=== PATIENT | male | born 1935 | race Caucasian/White ===

== ENCOUNTER → 2016-06-22 | Outpatient (CLI) | payer MEDICARE ==
--- NOTE | 2016-06-22 13:18 | XR ---
EXAMINATION TYPE: XR lumbosacral spine min 4V DATE OF EXAM ORDERED: 06/22/2016 12:10 PM HISTORY: Low back pain. COMPARISON: Previous study dated 05/22/2014. FINDINGS: There is a bilateral lysis at L5 and there is a grade 2 spondylolisthesis of L5 on S1. The re is severe disc space loss at L5-S1. There is mild, diffuse hypertrophic spondylosis throughout the lumbar spine. There is mild facet arth ropathy. There is spondylosis deformans. The pedicles are intact. IMPRESSION: 1. NO ACUTE OSSEOUS LESION. 2. FAIRLY SEVERE DEGENERATIVE CHANGE. 3. STABLE, GRADE 2 SPONDYLOLISTHESIS OF L5 ON S1.
== END | disposition home or self-care (01) ==
LOC: RADXRMAIN 11:35
PROVIDERS: ATTEND Internal Medicine
DX: M43.17 Spondylolisthesis, lumbosacral region (principal); M47.817 Spondylosis without myelopathy or radiculopathy, lumbosacral region
CPT/HCPCS: 72110

== ENCOUNTER → 2016-10-14 | Outpatient (CLI) | payer MEDICARE ==
--- NOTE | 2016-10-14 12:23 | FL ---
EXAMINATION TYPE: FL barium swallow w video DATE OF EXAM ORDERED: 10/14/2016 HISTORY: R13.10 dysphagia. COMPARISON: None. TECHNIQUE: The patient was challenged with varying food substances ranging from thin liquids through solids. FINDINGS: There was moderate penetration with thin liquids and flash penetration with nectar thick l iquids. The patient tolerated other foodstuffs well. There is no kwadwo aspiration. There are moderate residuals. IMPRESSION: THIS PATIENT AT INCREASED RISK FOR ASPIRATION WITH BOTH THIN LIQUIDS AND NECTAR THICK LIQUIDS.
== END | disposition home or self-care (01) ==
LOC: RADFLMAIN 11:31
PROVIDERS: ATTEND Otolaryngology
DX: R13.10 Dysphagia, unspecified (principal)
CPT/HCPCS: 74230

== ENCOUNTER → 2016-12-21 | Outpatient (CLI) | payer MEDICARE ==
--- NOTE | 2016-12-21 08:52 | CT ---
EXAMINATION TYPE: CT brain wo con DATE OF EXAM: 12/21/2016 COMPARISON: 12/10/2014 HISTORY: Dysphagia CT DLP: 892.[address] of the brain was performed. The ventricles, basal cisterns and sulci overlying the cerebral convexities demonstrate moderate enla rgement. There is no evidence for intracranial hemorrhage or sulcal effacement. There is moderate confluent decreased attenuation about the periventricular white matter and deep whi te matter of both cerebral hemispheres, compatible with chronic small vessel ischemia. Differential d iagnosis does include demyelination. No mass effects are seen.No midline shift. Osseous calvarium is intact. Mild chronic paranasal sinusitis. If symptoms persist consider MRI. IMPRESSION: 1. Age related atrophic and chronic small vessel ischemic change without acute intracranial process s een at this time.
== END | disposition home or self-care (01) ==
LOC: RADCTMAIN 08:16
PROVIDERS: ATTEND Psychiatry & Neurology Neurology
DX: G31.1 Senile degeneration of brain, not elsewhere classified (principal); I67.82 Cerebral ischemia
CPT/HCPCS: 70450

== ENCOUNTER → 2017-02-22 | Outpatient (CLI) | payer MEDICARE ==
--- NOTE | 2017-02-22 16:00 | US ---
EXAMINATION TYPE: US kidneys/renal and bladder DATE OF EXAM: 02/22/2017 COMPARISON: 12/11/2014 CLINICAL HISTORY: N18.4 Chronic kidney disease stage 4. CKD EXAM MEASUREMENTS: Right Kidney: 9.5 x 4.4 x 3.9 cm Left Kidney: 9.3 x 5.2 x 4.3 cm Right Kidney: echogenic, multiple cystic areas noted with largest = 6.1 x 3.8 x 5.7cm . The largest on the prior exam measured up to 4.2 cm. Left Kidney: echogenic, multiple cystic areas noted with largest = 5.3 x 3.4 x 4.3cm . The largest o n the prior exam measured up to 4.4 cm. Bladder: wall = 0.4cm likely secondary to incomplete distention. Bilateral Jets seen: yes Bilateral cortical renal atrophy is noted as well as diminished cortical medullary differentiation bi laterally. No hydronephrosis is seen. IMPRESSION: Redemonstration of bilateral cortically based renal cysts, enlarged from the prior exam, and cortical renal atrophy. No evidence of hydronephrosis or nephrolithiasis.
== END ==
LOC: RADUSWWP 14:18
PROVIDERS: ATTEND Internal Medicine Nephrology
DX: N28.1 Cyst of kidney, acquired (principal)
CPT/HCPCS: 76770

== ENCOUNTER → 2017-11-23 | Outpatient (CLI) | payer MEDICARE ==
--- NOTE | 2017-11-23 12:28 | US ---
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 EXAM MEASUREMENTS: Right Kidney: 10.2 x 4.1 x 4.9 cm Left Kidney: 12.5 x 5.5 x 6.4 cm Right Kidney: multiple cysts, largest measures 6.7 x 4.8 x 4.1 cm. Left Kidney: multiple cysts, largest measures 3.9 x 3.2 x 3.4 cm. Bladder: wnl Bilateral Jets seen: yes There is no evidence for hydronephrosis at this point in time. Increased cortical echogenicity is pre sent bilaterally. No nephrolithiasis is seen. No masses are identified. The urinary bladder is ane choic. Bilateral ureteral jets are seen. IMPRESSION: Findings consistent with chronic medical renal disease as there is cortical thinning and increased cortical echogenicity present bilaterally with multiple simple appearing cysts redemonstrat ed bilaterally. No hydronephrosis is evident bilaterally. No significant change from prior.
== END | disposition home or self-care (01) ==
LOC: RADUSWWP 10:46
PROVIDERS: ATTEND Internal Medicine Nephrology
DX: N28.1 Cyst of kidney, acquired (principal); I12.0 Hypertensive chronic kidney disease with stage 5 chronic kidney disease or end stage renal disease; N18.5 Chronic kidney disease, stage 5
CPT/HCPCS: 76770

== ENCOUNTER 2017-12-27 13:07 | Inpatient (IN) | payer MEDICARE ==
[2017-12-27 14:45] LABS: Basophils % (A) 0 %; Eosinophils # (A) 0.3 k/uL (0-0.7); Eosinophils % (A) 4 %; HCT 39.9 % (39.0-53.0); HGB 11.7 gm/dL (13.0-17.5); Hypochromasia Marked; Lymphocytes % (A) 14 %; MCH 28.7 pg (25.0-35.0); MCHC 29.4 g/dL (31.0-37.0); MCV 97.7 fL (80.0-100.0); Mean Platelet Volume 7.4; Monocytes # (A) 0.6 k/uL (0-1.0); Monocytes % (A) 9 %; Neutrophils # (A) 4.9 k/uL (1.3-7.7); Neutrophils % (A) 71 %; Platelet Count 165 k/uL (150-450); RBC 4.08 m/uL (4.30-5.90); RDW 14.8 % (11.5-15.5)
[2017-12-27 14:52] LABS: Albumin 3.4 g/dL (3.5-5.0); Calcium 8.7 mg/dL (8.4-10.2); Potassium 4.4 mmol/L (3.5-5.1); Total Bilirubin 0.5 mg/dL (0.2-1.3); Total Protein 6.1 g/dL (6.3-8.2)
[2017-12-27 15:07] LABS: Creatine Kinase 50 U/L (55-170)
[2017-12-27 15:20] LABS: Troponin I <0.012 ng/mL (0.000-0.034)
[2017-12-27 15:26] LABS: Creatine Kinase MB 2.7 ng/mL (0.0-2.4)
[2017-12-27] MEDS ORDERED: IPRATROPIUM-ALBUTEROL 3 ML NEB INHALATION STA (15:53)
[2017-12-27] MEDS ORDERED: methylPREDNISolone SOD SUCCI 125 MG/2 ML VIAL IV STA (15:53)
--- NOTE | 2017-12-27 15:55 | ED ---
General Adult HPI - General Chief complaint: Shortness of Breath Stated complaint: SOB Time Seen by Provider: 12/27/17 15:26 Source: patient, family, RN notes reviewed Mode of arrival: wheelchair Limitations: no limitations - History of Present Illness Initial comments: Patient is a pleasant 82-year-old male presenting to the emergency department with difficulty breathing. Symptoms have progressively worsened over the past couple of weeks. Patient has started using his nebulizers again how reason unclear whether or not the help. Patient is somewhat a poor historian. Patient does admit to cough with occasional sputum, unknown of discolored. No fevers. Patient is in the process of starting dialysis. - Related Data Home Medications Medication Instructions Recorded Confirmed Brimonidine Tartrate [Alphagan P 1 drop BOTH EYES BID 12/10/14 12/27/17 0.1% Ophth Soln] Pravastatin Sodium [Pravachol] 20 mg PO HS 12/10/14 12/27/17 Timolol 0.5% Ophth Soln [Timoptic 1 drop BOTH EYES DAILY 12/11/14 12/27/17 0.5% Ophth Soln] Allopurinol [Zyloprim] 100 mg PO HS 12/27/17 12/27/17 Atenolol [Tenormin] 12.5 mg PO Q48H 12/27/17 12/27/17 Calcitriol 0.25 mcg PO Q14D 12/27/17 12/27/17 Cholecalciferol (Vitamin D3) 2,000 unit PO HS 12/27/17 12/27/17 [Vitamin D3] Ferrous Sulfate [Feosol] 325 mg PO HS 12/27/17 12/27/17 Multivitamins, Thera [Multivitamin 1 tab PO HS 12/27/17 12/27/17 (formulary)] Sodium Bicarbonate 10gr 10 gm PO HS 12/27/17 12/27/17 Tamsulosin [Flomax] 0.4 mg PO DAILY 12/27/17 12/27/17 Warfarin [Coumadin] 5 mg PO [id number] 12/27/17 12/27/17 Warfarin [Coumadin] 7.5 mg PO SUTH 12/27/17 12/27/17 rOPINIRole HCL [Requip] 4 mg PO HS 12/27/17 12/27/17 Allergies Allergy/AdvReac Type Severity Reaction Status Date / Time No Known Allergies Allergy Verified 12/27/17 16:20 Review of Systems ROS Statement: Those systems with pertinent positive or pertinent negative responses have been documented in the HPI. ROS Other: All systems not noted in ROS Statement are negative. Constitutional: Denies: fever Eyes: Denies: eye pain ENT: Denies: ear pain Respiratory: Reports: cough, dyspnea Cardiovascular: Denies: chest pain Endocrine: Denies: heat or cold intolerance Gastrointestinal: Denies: vomiting Genitourinary: Denies: dysuria Musculoskeletal: Denies: back pain Skin: Denies: rash Neurological: Denies: weakness Past Medical History Past Medical History: COPD, Hyperlipidemia, Hypertension, Renal Disease History of Any Multi-Drug Resistant Organisms: None Reported Past Surgical History: Hernia Repair Additional Past Surgical History / Comment(s): Mastoid surgery X3 Past Anesthesia/Blood Transfusion Reactions: No Reported Reaction Past Psychological History: No Psychological Hx Reported Smoking Status: Former smoker Past Alcohol Use History: Occasional Past Drug Use History: None Reported - Past Family History Father Family Medical History: Asthma Mother Family Medical History: Hypertension General Exam Limitations: no limitations General appearance: alert, in no apparent distress Head exam: Present: atraumatic Eye exam: Present: normal appearance, PERRL ENT exam: Present: normal oropharynx Neck exam: Present: normal inspection Respiratory exam: Present: wheezes, rales (Right base) Cardiovascular Exam: Present: irregular rhythm GI/Abdominal exam: Present: soft. Absent: tenderness Extremities exam: Present: normal inspection. Absent: pedal edema, calf tenderness Back exam: Present: normal inspection Neurological exam: Present: alert Psychiatric exam: Present: normal affect, normal mood Skin exam: Present: normal color Course Vital Signs 12/27/17 12/27/17 12/27/17 13:52 15:50 15:52 Temperature 97.8 F 98.3 F Pulse Rate 86 91 Respiratory 20 18 18 Rate Blood Pressure 109/74 116/62 O2 Sat by Pulse 98 98 Oximetry 12/27/17 12/27/17 16:08 16:18 Temperature Pulse Rate 85 90 Respiratory Rate Blood Pressure O2 Sat by Pulse Oximetry - Reevaluation(s) Reevaluation #1: 12/27/17 17:50 Patient does not meet sepsis criteria. Patient will be started on antibiotics for possible lung consolidation. EKG Findings - EKG Comments: EKG Findings:: A. fib with rate of 98. QRS 72. QT 336. QTc 428. Normal axis. Normal QRS. No acute ST change Medical Decision Making - Medical Decision Making Patient reevaluated and somewhat improved following nebulizer. Patient updated on results and plan. Case was discussed with Dr. More, who will admit for Dr. Ortiz. - Lab Data Result diagrams: 12/27/17 14:30 12/27/17 14:30 Lab Results 12/27/17 12/27/17 12/27/17 Range/Units 14:30 14:30 14:30 WBC 7.0 (3.8-10.6) k/uL RBC 4.08 L (4.30-5.90) m/uL Hgb 11.7 L (13.0-17.5) gm/dL Hct 39.9 (39.0-53.0) % MCV 97.7 (80.0-100.0) fL MCH 28.7 (25.0-35.0) pg MCHC 29.4 L (31.0-37.0) g/dL RDW 14.8 (11.5-15.5) % Plt Count 165 (150-450) k/uL Neutrophils % 71 % Lymphocytes % 14 % Monocytes % 9 % Eosinophils % 4 % Basophils % 0 % Neutrophils # 4.9 (1.3-7.7) k/uL Lymphocytes # 1.0 (1.0-4.8) k/uL Monocytes # 0.6 (0-1.0) k/uL Eosinophils # 0.3 (0-0.7) k/uL Basophils # 0.0 (0-0.2) k/uL Hypochromasia Marked Sodium 139 (137-145) mmol/L Potassium 4.4 (3.5-5.1) mmol/L Chloride 109 H (98-107) mmol/L Carbon Dioxide 20 L (22-30) mmol/L Anion Gap 10 mmol/L BUN 76 H (9-20) mg/dL Creatinine 3.90 H (0.66-1.25) mg/dL Est GFR (CKD-EPI)AfAm 15 (>60 ml/min/1.73 sqM) Est GFR (CKD-EPI)NonAf 13 (>60 ml/min/1.73 sqM) Glucose 103 H (74-99) mg/dL Plasma Lactic Acid Jack (0.7-2.0) mmol/L Calcium 8.7 (8.4-10.2) mg/dL Total Bilirubin 0.5 (0.2-1.3) mg/dL AST 20 (17-59) U/L ALT 33 (21-72) U/L Alkaline Phosphatase 141 H (38-126) U/L Total Creatine Kinase 50 L (55-170) U/L CK-MB (CK-2) 2.7 H* (0.0-2.4) ng/mL CK-MB (CK-2) Rel Index 5.4 Troponin I <0.012 (0.000-0.034) ng/mL NT-Pro-B Natriuret Pep pg/mL Total Protein 6.1 L (6.3-8.2) g/dL Albumin 3.4 L (3.5-5.0) g/dL 12/27/17 12/27/17 Range/Units 14:30 14:30 WBC (3.8-10.6) k/uL RBC (4.30-5.90) m/uL Hgb (13.0-17.5) gm/dL Hct (39.0-53.0) % MCV (80.0-100.0) fL MCH (25.0-35.0) pg MCHC (31.0-37.0) g/dL RDW (11.5-15.5) % Plt Count (150-450) k/uL Neutrophils % % Lymphocytes % % Monocytes % % Eosinophils % % Basophils % % Neutrophils # (1.3-7.7) k/uL Lymphocytes # (1.0-4.8) k/uL Monocytes # (0-1.0) k/uL Eosinophils # (0-0.7) k/uL Basophils # (0-0.2) k/uL Hypochromasia Sodium (137-145) mmol/L Potassium (3.5-5.1) mmol/L Chloride (98-107) mmol/L Carbon Dioxide (22-30) mmol/L Anion Gap mmol/L BUN (9-20) mg/dL Creatinine (0.66-1.25) mg/dL Est GFR (CKD-EPI)AfAm (>60 ml/min/1.73 sqM) Est GFR (CKD-EPI)NonAf (>60 ml/min/1.73 sqM) Glucose (74-99) mg/dL Plasma Lactic Acid Jack 0.6 L (0.7-2.0) mmol/L Calcium (8.4-10.2) mg/dL Total Bilirubin (0.2-1.3) mg/dL AST (17-59) U/L ALT (21-72) U/L Alkaline Phosphatase (38-126) U/L Total Creatine Kinase (55-170) U/L CK-MB (CK-2) (0.0-2.4) ng/mL CK-MB (CK-2) Rel Index Troponin I (0.000-0.034) ng/mL NT-Pro-B Natriuret Pep 07288 pg/mL Total Protein (6.3-8.2) g/dL Albumin (3.5-5.0) g/dL - Radiology Data Radiology results: image reviewed (Chest x-ray shows cardiomegaly.Pleural effusion and probable consolidation.) Disposition Clinical Impression: Dyspnea, Pleural effusion Disposition: ADMITTED IP TO THIS HOSP Is patient prescribed a controlled substance at d/c from ED?: No Referrals: Vaibhav Ortiz MD [Primary Care Provider] - 1-2 days Decision Time: 17:50
--- NOTE | 2017-12-27 17:38 | XR ---
EXAMINATION TYPE: XR chest 2V DATE OF EXAM: 12/27/2017 COMPARISON: 04/15/2017 HISTORY: Short of breath TECHNIQUE: Frontal and lateral views of the chest are obtained. FINDINGS: Heart is enlarged. There is opacification of left lower hemithorax. There is coarsening of the lung markings. There is no definite heart failure. There is slight blunting of right costophreni c angle. IMPRESSION: Cardiomegaly. There is new left pleural effusion and probable left lower lobe consolidat ion compared to old exam. Small right pleural effusion. No obvious heart failure.
[2017-12-27] MEDS ORDERED: PNEUMONIA PROTOCOL UTILIZED 1 EACH MISC PO PRN (17:50)
[2017-12-27] MEDS ORDERED: cefTRIAXone IN SWFI 1,000 MG/10 ML SYRINGE IVP STA (17:50)
[2017-12-27] MEDS ORDERED: IPRATROPIUM-ALBUTEROL 3 ML NEB INHALATION PRN (17:50)
[2017-12-27] MEDS ORDERED: AZITHROMYCIN 500 MG in SODIUM CHLORIDE 0.9% 250 ML IVPB STA (17:50)
[2017-12-27] MEDS: methylPREDNISolone SOD SUCCI 125 MG/2 ML VIAL IV SCH (20:44)
[2017-12-27] MEDS: IPRATROPIUM-ALBUTEROL 3 ML NEB INHALATION SCH (21:12)
[2017-12-27] MEDS ORDERED: ATENOLOL 12.5 MG TAB PO SCH (23:30)
[2017-12-28] MEDS: methylPREDNISolone SOD SUCCI 125 MG/2 ML VIAL IV SCH ×4 (00:28→17:36)
[2017-12-28] MEDS: ACETAMINOPHEN TAB 325 MG TAB PO PRN (00:56)
[2017-12-28 01:17] LABS: Appearance,Urine Clear (Clear); Color,Urine Yellow; Specific Gravity,Urine 1.008 (1.001-1.035)
[2017-12-28 01:18] LABS: Bilirubin,Urine Negative (Negative); Blood,Urine Negative (Negative); Glucose,Urine (UA) 2+ (Negative); Ketones,Urine Negative (Negative); Leukocyte Esterase,Urine Negative (Negative); Nitrite,Urine Negative (Negative); Protein,Urine Trace (Negative); Urobilinogen,Urine <2.0 mg/dL (<2.0)
--- NOTE | 2017-12-28 07:17 | XR ---
EXAMINATION TYPE: XR chest 2V DATE OF EXAM: 12/28/2017 COMPARISON: Prior chest x-ray 12/27/2017 HISTORY: Pneumonia TECHNIQUE: Frontal and lateral views of the chest are obtained. FINDINGS: No evident pneumothorax. Retrocardiac density obscures the left hemidiaphragm. There is pe rsistent blunting of the right costophrenic angle. Heart is thought to be enlarged. Pulmonary vascula rity and ben not significantly changed. Prominent lung volumes suggests underlying COPD. IMPRESSION: There is no significant interval change. Cardiomegaly. Left lower lobe atelectasis versu s pneumonia and associated effusion, follow-up to resolution. Consider chest CT as indicated for pers istent abnormal density.
[2017-12-28 07:18] LABS: Glucose,Whole Blood 137 mg/dL (75-99)
--- NOTE | 2017-12-28 07:41 | HP ---
HISTORY AND PHYSICAL CHIEF COMPLAINT: Shortness of breath. HISTORY OF PRESENT ILLNESS: This 82 -year-old gentleman with past medical history of COPD, diabetes, hypertension, hyperlipidemia, is being followed by Dr. Ortiz in the outpatient setting was admitted with shortness of breath. The patient had difficulty which progressively worsened after 2 weeks despite using nebulizer. A chest x-ray was done from the ER which showed cardiomegaly with new left pleural effusion and probable left lower consolidation also. There is no history of fever, rigors. No history of headache, loss of consciousness or seizures at this time. PAST MEDICAL HISTORY: History of COPD, hypertension, hyperlipidemia, history of renal disease. MEDICATIONS: Prior to admission include: 1. Requip 4 mg q.h.s. 2. Coumadin 5 mg Wednesday, Wednesday, Wednesday, Wednesday and 7.5 mg Wednesday and . 3. Timolol 1 drop both eyes b.i.d. daily. 4. Flomax 0.4 daily. 5. Sodium bicarb 10 mg q.h.s. 6. Pravachol 20 mg. 7. Multivitamins one p.o. daily. 8. Iron sulfate 320 mg daily. 9. Vitamin D3 2000 q.h.s. 10.Calcitriol 0.25 mcg q14 days. 11.Alphagan eye drops. 12.Tenormin 12.5 mg. 13.Zyloprim 100 mg daily. ALLERGIES: None. FAMILY HISTORY: History of asthma in the family. SOCIAL HISTORY: Previous history of smoker. No history of current smoking or alcohol intake. REVIEW OF SYSTEMS: ENT: No diminished vision. No diminished hearing cardio system: No angina or palpitations. Respiratory: No cough. GI: No nausea or vomiting. : No dysuria. NERVOUS SYSTEM: No numbness or weakness. ALLERGY/IMMUNOLOGY: No asthma or hayfever. MUSCULOSKELETAL: As mentioned earlier. HEMATOLOGY/ONCOLOGY: No history of anemia. ENDOCRINE no history of diabetes or hypothyroidism. CONSTITUTIONAL: As mentioned earlier. Dermatology: Negative. Rheumatology: Negative. Psychiatry: As mentioned earlier. PHYSICAL EXAMINATION: GENERAL: The patient is alert and oriented x2. Pulse is 88, blood pressure 111/60. Respiration 18. Temperature normal. Pulse ox 97 percent on 2 L. HEENT conjunctivae normal. Oral mucosa moist. Neck is no jugular venous distention. No carotid bruit. No lymph node enlargement. Cardiovascular system: S1, S2. No s3, no S4. Respiratory: Breath sounds diminished in the bases. Bilateral scattered rhonchi and increased breathing and increased efforts of breathing present and left lower lobe more crackles and bronchovesicular breathing also. ABDOMEN: Soft, nontender. No mass palpable. Legs no edema. No swelling. NERVOUS SYSTEM: Higher functions as mentioned earlier. Moves all four extremities. No focal motor or sensory deficits. Lymphatics: No lymph nodes palpable in the neck, axillae or groin. Skin: No ulcer, rashes or bleeding. LABS: WBC 7, hemoglobin 10.8, creatinine 3.97, [place] [address]. ASSESSMENT: 1. Chronic obstructive pulmonary disease acute exacerbation. 2. Possible left lower lobe pneumonia possibly gram-negative with left pleural effusion. 3. Renal failure with stage IV possibly. 4. History of hypertension. 5. Coumadin monitoring. 6. History of cardiomyopathy. 7. History of atrial fibrillation. RECOMMENDATION AND DISCUSSION: In this 82-year-old gentleman who presented with multiple complex medical issues, we will monitor the patient closely, continue the current medications, management and symptomatic treatment. We will initiate broad-spectrum IV antibiotics. Pulmonary consultation with Dr. Ortiz and Dr. Gloria. Otherwise, avoid nephrotoxic medications. Nephrology evaluation. Guarded prognosis because of multiple complex medical issues. Further recommendations to follow. A copy of dictation will be forwarded to Dr. Ortiz who is the primary physician. Bronchodilators. See orders for details. MMODL / IJN: [id number] /
[2017-12-28 07:45] LABS: Basophils % (A) 0 %; Eosinophils % (A) 0 %; HCT 37.1 % (39.0-53.0); Hypochromasia Marked; Lymphocytes # (A) 0.5 k/uL (1.0-4.8); Lymphocytes % (A) 10 %; MCH 29.1 pg (25.0-35.0); MCHC 29.6 g/dL (31.0-37.0); MCV 98.4 fL (80.0-100.0); Mean Platelet Volume 7.2; Monocytes # (A) 0.1 k/uL (0-1.0); Monocytes % (A) 2 %; Neutrophils # (A) 4.6 k/uL (1.3-7.7); Neutrophils % (A) 88 %; Platelet Count 151 k/uL (150-450); RBC 3.77 m/uL (4.30-5.90); RDW 14.9 % (11.5-15.5); WBC 5.2 k/uL (3.8-10.6)
[2017-12-28] MEDS: INSULIN ASPART 100 UNIT/ML 1 ML 10 ML VIAL SQ SCH ×4 (07:50→21:45)
[2017-12-28] MEDS: TIMOLOL 0.5% OPHTH DROPS 5 ML BTL BOTH EYES SCH (07:50)
[2017-12-28] MEDS: cefTRIAXone IN SWFI 1,000 MG/10 ML SYRINGE IVP SCH (07:50)
[2017-12-28] MEDS: AZITHROMYCIN 500 MG TAB PO SCH (07:51)
[2017-12-28] MEDS: TAMSULOSIN 0.4 MG CAP.ER.24H PO SCH (07:51)
[2017-12-28] MEDS: BRIMONIDINE TARTRATE 0.2% DROPS 5 ML BTL BOTH EYES SCH ×2 (07:51→21:42)
[2017-12-28 07:55] LABS: INR 4.8 (<1.2); Prothrombin Time 43.7 sec (9.0-12.0)
[2017-12-28] MEDS: IPRATROPIUM-ALBUTEROL 3 ML NEB INHALATION SCH ×4 (07:56→19:42)
[2017-12-28 08:22] LABS: Calcium 8.6 mg/dL (8.4-10.2); Potassium 4.2 mmol/L (3.5-5.1)
[2017-12-28] MEDS ORDERED: LIDOCAINE 1% INJ 10MG/ML (20 ML MDV) SQ STA (11:31)
[2017-12-28 12:17] LABS: Glucose,Whole Blood 151 mg/dL (75-99)
--- NOTE | 2017-12-28 12:44 | P.CNPUL ---
History of Present Illness Consult date: 12/28/17 Reason for consult: pleural effusion History of present illness: 82-year-old male patient with known history of chronic renal failure, currently on no dialysis, was coming into the hospital because of worsening shortness of breath over the past few weeks. The patient was found to have a large left- sided pleural effusion. Pulmonary consultation was requested. The patient claims that he had a pleural effusion approximately 3 years ago and this procedure was done by Dr. Favio Sage, however this was on the right side and a total of 1.8 L of pleural fluid was aspirated without any complications. The pleural fluid cytology was negative for malignancy. The patient is presenting with a large left-sided pleural effusion during this current admission. No significant fever or chills. No cough no sputum production no pleurisy. A bedside thoracentesis was done a total of 2.4 L of hemorrhagic bloody pleural effusion was aspirated from the left lung without any complication. A CAT scan of the chest is to follow. No constitutional symptoms. No pleurisy. No chest pain. The patient is known to have COPD and addition to chronic renal failure. Other medical problems include hypertension and hyperlipidemia and BPH. Review of Systems Constitutional: Reports fatigue, Reports lethargy Eyes: denies blurred vision, denies bulging eye, denies decreased vision Ears: deny: decreased hearing, ear discharge, earache, tinnitus Ears, nose, mouth and throat: Denies headache, Denies sore throat Cardiovascular: Reports decreased exercise tolerance, Reports dyspnea on exertion Respiratory: Reports dyspnea Gastrointestinal: Denies abdominal pain, Denies diarrhea, Denies nausea, Denies vomiting Genitourinary: Reports as per HPI Musculoskeletal: Denies myalgias Musculoskeletal: absent: ankle pain, ankle stiffness, ankle swelling Integumentary: Denies pruritus, Denies rash Neurological: Denies numbness, Denies weakness Psychiatric: Denies anxiety, Denies depression Endocrine: Reports as per HPI Hematologic/Lymphatic: Reports as per HPI Allergic/Immunologic: Reports as per HPI Past Medical History Past Medical History: Atrial Fibrillation, COPD, Hyperlipidemia, Hypertension, Renal Disease Additional Past Medical History / Comment(s): . History of Any Multi-Drug Resistant Organisms: None Reported Past Surgical History: Hernia Repair Additional Past Surgical History / Comment(s): Mastoid surgery X3 Past Anesthesia/Blood Transfusion Reactions: No Reported Reaction Past Psychological History: No Psychological Hx Reported Smoking Status: Former smoker Past Alcohol Use History: Occasional Past Drug Use History: None Reported - Past Family History Father Family Medical History: Asthma Mother Family Medical History: Hypertension Medications and Allergies Home Medications Medication Instructions Recorded Confirmed Type Brimonidine Tartrate [Alphagan P 1 drop BOTH EYES BID 12/10/14 12/27/17 History 0.1% Ophth Soln] Pravastatin Sodium [Pravachol] 20 mg PO HS 12/10/14 12/27/17 History Timolol 0.5% Ophth Soln [Timoptic 1 drop BOTH EYES DAILY 12/11/14 12/27/17 History 0.5% Ophth Soln] Allopurinol [Zyloprim] 100 mg PO HS 12/27/17 12/27/17 History Atenolol [Tenormin] 12.5 mg PO Q48H 12/27/17 12/27/17 History Calcitriol 0.25 mcg PO Q14D 12/27/17 12/27/17 History Cholecalciferol (Vitamin D3) 2,000 unit PO HS 12/27/17 12/27/17 History [Vitamin D3] Ferrous Sulfate [Feosol] 325 mg PO HS 12/27/17 12/27/17 History Multivitamins, Thera [Multivitamin 1 tab PO HS 12/27/17 12/27/17 History (formulary)] Sodium Bicarbonate 10gr 10 gm PO HS 12/27/17 12/27/17 History Tamsulosin [Flomax] 0.4 mg PO DAILY 12/27/17 12/27/17 History Warfarin [Coumadin] 5 mg PO MOTUWEFRSA 12/27/17 12/27/17 History Warfarin [Coumadin] 7.5 mg PO SUTH 12/27/17 12/27/17 History rOPINIRole HCL [Requip] 4 mg PO HS 12/27/17 12/27/17 History Allergies Allergy/AdvReac Type Severity Reaction Status Date / Time No Known Allergies Allergy Verified 12/27/17 16:20 Physical Exam Vitals: Vital Signs Temp Pulse Pulse Resp BP BP Pulse Ox 12/28/17 11:45 84 12/28/17 11:24 84 12/28/17 08:07 80 12/28/17 07:56 80 12/28/17 07:00 98.1 F 86 20 109/65 92 L 12/27/17 23:00 98.0 F 84 24 115/59 93 L 12/27/17 21:26 88 12/27/17 21:12 88 12/27/17 19:51 88 18 111/63 97 12/27/17 18:23 91 18 111/57 94 L 12/27/17 16:18 90 12/27/17 16:08 85 12/27/17 15:52 18 12/27/17 15:50 98.3 F 91 18 116/62 98 12/27/17 13:52 97.8 F 86 20 109/74 98 Intake and Output 12/27/17 12/28/17 12/28/17 22:59 06:59 14:59 Intake Total 20 Output Total 100 Balance -80 Intake: IV 20 saline flush 20 Output: Urine 100 Other: Voiding Method Toilet Toilet # Voids 1 1 Weight 79 kg Gen. appearance the patient is calm comfortable likely distress Head exam was generally normal. There was no scleral icterus or corneal arcus. Mucous membranes were moist. Neck was supple and without jugular venous distension, thyromegaly, or carotid bruits. Carotids were easily palpable bilaterally. There was no adenopathy. Lungs sounds are diminished in the left lung base along with dullness to percussion Cardiac exam revealed the PMI to be normally situated and sized. The rhythm was regular and no extrasystoles were noted during several minutes of auscultation. The first and second heart sounds were normal and physiologic splitting of the second heart sound was noted. There were no murmurs, rubs, clicks, or gallops. Abdominal exam revealed normal bowel sounds. The abdomen was soft, non-tender, and without masses, organomegaly, or appreciable enlargement of the abdominal aorta. Extremities the patient has a functional AV fistula in the right upper extremity.Examination of the extremities revealed easily palpable radial, femoral and pedal pulses. There was no cyanosis, clubbing or edema. Neurologically awake and alert there is no deficit Examination of the skin revealed no evidence of significant rashes, suspicious appearing nevi or other concerning lesions. Results - Laboratory Findings CBC and BMP: 12/28/17 07:09 12/28/17 07:09 PT/INR, D-dimer PT 43.7 sec (9.0-12.0) H 12/28/17 07:09 INR 4.8 (<1.2) H 12/28/17 07:09 Abnormal lab findings: Abnormal Labs 12/27/17 12/27/17 12/27/17 14:30 14:30 14:30 RBC 4.08 L Hgb 11.7 L Hct MCHC 29.4 L Lymphocytes # PT INR Chloride 109 H Carbon Dioxide 20 L BUN 76 H Creatinine 3.90 H Glucose 103 H POC Glucose (mg/dL) Plasma Lactic Acid Jack Alkaline Phosphatase 141 H Total Creatine Kinase 50 L CK-MB (CK-2) 2.7 H* Total Protein 6.1 L Albumin 3.4 L Urine Protein Urine Glucose (UA) 12/27/17 12/28/17 12/28/17 14:30 07:06 07:09 RBC 3.77 L Hgb 11.0 L Hct 37.1 L MCHC 29.6 L Lymphocytes # 0.5 L PT INR Chloride Carbon Dioxide BUN Creatinine Glucose POC Glucose (mg/dL) 137 H Plasma Lactic Acid Jack 0.6 L Alkaline Phosphatase Total Creatine Kinase CK-MB (CK-2) Total Protein Albumin Urine Protein Urine Glucose (UA) 12/28/17 12/28/17 12/28/17 07:09 07:09 11:31 RBC Hgb Hct MCHC Lymphocytes # PT 43.7 H INR 4.8 H Chloride 110 H Carbon Dioxide 18 L BUN 73 H Creatinine 3.85 H Glucose 144 H POC Glucose (mg/dL) 151 H Plasma Lactic Acid Jack Alkaline Phosphatase Total Creatine Kinase CK-MB (CK-2) Total Protein Albumin Urine Protein Urine Glucose (UA) 12/28/17 Unknown RBC Hgb Hct MCHC Lymphocytes # PT INR Chloride Carbon Dioxide BUN Creatinine Glucose POC Glucose (mg/dL) Plasma Lactic Acid Jack Alkaline Phosphatase Total Creatine Kinase CK-MB (CK-2) Total Protein Albumin Urine Protein Trace H Urine Glucose (UA) 2+ H - Diagnostic Findings Chest x-ray: image reviewed Assessment and Plan Plan: Assessment 1 large left-sided pleural effusion postthoracentesis and evacuation of 2.4 L of bloody effusion without any complications. CAT scan of the chest is to follow. Chemical analysis of the pleural fluid is to follow. Fluid cytology is to follow. Rule out malignancy. Rule out parapneumonic effusion. 2 shortness of breath secondary to above, anticipate improvement postthoracentesis 3 chronic renal failure not on hemodialysis. 4 hypertension 5 hyperlipidemia 6 chronic anemia 7 previous history of a right-sided pleural effusion evacuated through a thoracentesis back in 2014 Plan Sent the pleural fluid for analysis. Obtain a computed tomography scan of the chest without contrast. Resume outpatient medications. We'll continue to follow.
--- NOTE | 2017-12-28 13:01 | P.NPCON ---
History of Present Illness - Reason for Consult chronic renal failure - History of Present Illness Reason for consultation: Chronic kidney disease History of present illness: Patient is a 82-year-old male seen in renal consultation for chronic kidney disease. Patient has chronic kidney disease stage V with baseline creatinine near 3.8-3.9. 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 Patient has been prepared for hemodialysis as an outpatient and has a left upper extremity AV fistula in place. He is also interested in doing peritoneal dialysis down the road. Patient presented to the hospital due to dyspnea. Patient states he's been dyspneic the last one month and has been gradually getting worse. He also had a productive cough with yellow sputum. Chest x-ray was suggestive of a left lower lobe pneumonia but he was also noted to have pleural effusions. He's scheduled to undergo CAT scan of the chest today. No vomiting or diarrhea. Oral intake is fair. Admits to good urine output. Denies hematuria or dysuria. Denies use of nonsteroidals. No fever or chills. Creatinine stable at 3.85 today. Hemodynamically stable. Patient states Lasix was discontinued about a week ago as his blood pressure was low. No edema. Vital signs are stable. General: The patient appeared well nourished and normally developed. HEENT: Head exam is unremarkable. Neck is without jugular venous distension. LUNGS: Lungs are clear to auscultation and percussion. Breath sounds decreased. HEART: Rate and Rhythm are regular. First and second heart sounds normal. No murmurs, rubs or gallops. ABDOMEN: Abdominal exam reveals normal bowel sounds. Non-tender and non- distended. No evidence of peritonitis. EXTREMITITES: No clubbing, cyanosis, or edema. Past Medical History Past Medical History: Atrial Fibrillation, COPD, Hyperlipidemia, Hypertension, Renal Disease Additional Past Medical History / Comment(s): . History of Any Multi-Drug Resistant Organisms: None Reported Past Surgical History: Hernia Repair Additional Past Surgical History / Comment(s): Mastoid surgery X3 Past Anesthesia/Blood Transfusion Reactions: No Reported Reaction Past Psychological History: No Psychological Hx Reported Smoking Status: Former smoker Past Alcohol Use History: Occasional Past Drug Use History: None Reported - Past Family History Father Family Medical History: Asthma Mother Family Medical History: Hypertension Medications and Allergies Home Medications Medication Instructions Recorded Confirmed Type Brimonidine Tartrate [Alphagan P 1 drop BOTH EYES BID 12/10/14 12/27/17 History 0.1% Ophth Soln] Pravastatin Sodium [Pravachol] 20 mg PO HS 12/10/14 12/27/17 History Timolol 0.5% Ophth Soln [Timoptic 1 drop BOTH EYES DAILY 12/11/14 12/27/17 History 0.5% Ophth Soln] Allopurinol [Zyloprim] 100 mg PO HS 12/27/17 12/27/17 History Atenolol [Tenormin] 12.5 mg PO Q48H 12/27/17 12/27/17 History Calcitriol 0.25 mcg PO Q14D 12/27/17 12/27/17 History Cholecalciferol (Vitamin D3) 2,000 unit PO HS 12/27/17 12/27/17 History [Vitamin D3] Ferrous Sulfate [Feosol] 325 mg PO HS 12/27/17 12/27/17 History Multivitamins, Thera [Multivitamin 1 tab PO HS 12/27/17 12/27/17 History (formulary)] Sodium Bicarbonate 10gr 10 gm PO HS 12/27/17 12/27/17 History Tamsulosin [Flomax] 0.4 mg PO DAILY 12/27/17 12/27/17 History Warfarin [Coumadin] 5 mg PO MOTUWEFRSA 12/27/17 12/27/17 History Warfarin [Coumadin] 7.5 mg PO SUTH 12/27/17 12/27/17 History rOPINIRole HCL [Requip] 4 mg PO HS 12/27/17 12/27/17 History Allergies Allergy/AdvReac Type Severity Reaction Status Date / Time No Known Allergies Allergy Verified 12/27/17 16:20 Physical Exam Vitals: Vital Signs Temp Pulse Pulse Resp BP BP Pulse Ox 12/28/17 11:45 84 12/28/17 11:24 84 12/28/17 08:07 80 12/28/17 07:56 80 12/28/17 07:00 98.1 F 86 20 109/65 92 L 12/27/17 23:00 98.0 F 84 24 115/59 93 L 12/27/17 21:26 88 12/27/17 21:12 88 12/27/17 19:51 88 18 111/63 97 12/27/17 18:23 91 18 111/57 94 L 12/27/17 16:18 90 12/27/17 16:08 85 12/27/17 15:52 18 12/27/17 15:50 98.3 F 91 18 116/62 98 12/27/17 13:52 97.8 F 86 20 109/74 98 Intake and Output 12/27/17 12/28/17 12/28/17 22:59 06:59 14:59 Intake Total 20 Output Total 100 Balance -80 Intake: IV 20 saline flush 20 Output: Urine 100 Other: Voiding Method Toilet Toilet # Voids 1 1 Weight 79 kg Results - Lab Results Most recent lab results Calcium 8.6 mg/dL (8.4-10.2) 12/28/17 07:09 12/28/17 07:09 12/28/17 07:09 Assessment and Plan Plan: Assessment: 1. 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 Baseline creatinine near 3.8-3.9. Currently at baseline. 2. Metabolic acidosis secondary to chronic kidney disease. Patient states he ran out of sodium bicarbonate a few days ago. 3. Dyspnea secondary to left lower lobe pneumonia. 4. BPH maintained on Flomax. 5. Chronic kidney disease mineral bone disease maintained on calcitriol. 6. Anemia of chronic kidney disease. Hemoglobin at goal. Plan: Follow-up CT of the chest. Add oral sodium bicarbonate 650 mg twice daily. Encouraged oral intake. Continue to monitor renal function and urine output. Patient has a left upper extremity AV fistula in place. No urgent need for renal placement therapy at this time. Thank you for the consultation. I will continue to follow the patient with you during his hospital stay.
[2017-12-28] MEDS: SODIUM BICARBONATE TAB 650 MG TAB PO SCH ×2 (13:08→21:41)
--- NOTE | 2017-12-28 13:20 | CT ---
EXAMINATION TYPE: CT chest wo con DATE OF EXAM: 12/28/2017 COMPARISON: Chest x-ray earlier today HISTORY: Cough after thoracentesis CT DLP: 536 mGycm. Automated Exposure Control for Dose Reduction was Utilized. TECHNIQUE: CT scan of the thorax is performed without IV contrast. FINDINGS: LUNGS: There is residual small left pleural effusion after left-sided thoracentesis. There is associa adelaide compressive atelectasis. There is patchy right basilar linear scarring and/or atelectasis near di aphragm. Some mild groundglass opacity or suspected alveolar edema in the left lower lobe is present. There is additional linear scarring or atelectasis centrally left mid lung axial image 30. There is mild anterior reticulation and bleb formation right upper lobe near axial image 14 with focal scarrin g centrally axial image 14. There is mild central bronchiectasis involving lower lobe bronchi. There is anterior lateral right mid to lower lung linear scarring or atelectasis coronal image 33. No suspi cious consolidation or parenchymal nodule/masses are identified. No pneumothorax is seen bilaterally MEDIASTINUM: Lack of IV contrast is noted to limit evaluation for mediastinal and especially hilar ad enopathy. There are no definitive greater than 1 cm hilar or mediastinal lymph nodes. There is cardio megaly with moderate biatrial dilatation. There is moderate coronary artery calcification LAD in righ t circumflex. There is mild to moderate calcified plaque of aorta extending into branch vessels. Main pulmonary artery is dilated at 3.2 cm on axial image 28, CT findings consistent with underlying pulm onary artery hypertension. Adjacent ascending aorta measures up to 3.8 cm in diameter. OTHER: Severe multilevel spurring in the spine is present. Slight S-shaped scoliosis is seen. There a re several scattered low dense lesions probable simple cysts throughout both kidneys, few have higher density than simple cyst raising concern for proteinaceous cysts, solid lesion not excluded, for ref erence 1.9 cm exophytic lesion axial image 59 lateral aspect upper pole is noted with Hounsfield unit s averaging 21. IMPRESSION: 1. Small residual left pleural effusion after thoracentesis. Small area of groundglass opacity in the left lung could reflect small focus of reexpansion alveolar edema. There is background mild to moder ate scattered chronic parenchymal change bilaterally as detailed above most likely some atelectatic c omponent in the bilateral bases. No sizable pneumothorax. 2. Background cardiomegaly and suspected underlying pulmonary artery hypertension.
[2017-12-28 14:33] LABS: Hemoglobin A1C 5.9 % (4.0-6.0)
[2017-12-28 16:30] LABS: Hepatitis A Antibody IgM Non-Reactive (Non-Reactive); Hepatitis B Core IgM Non-Reactive (Non-Reactive)
[2017-12-28 17:20] LABS: Glucose,Whole Blood 157 mg/dL (75-99)
[2017-12-28] MEDS ORDERED: WARFARIN 5 MG TAB PO SCH (18:00)
--- NOTE | 2017-12-28 18:38 | PN ---
PROGRESS NOTE DATE OF SERVICE: 12/28/2017. This 82-year-old gentleman admitted with COPD acute exacerbation, possible pneumonia, pleural effusion on the left side. The patient has renal failure also which is chronic renal failure, possibly stage IV. Multiple consultants are following closely, Dr. Gloria and Dr. Thompson. Dr. Gloria recommended CT scan of the chest which showed residual left pleural effusion after the thoracocentesis and small area of ground-glass opacity was also noted. Otherwise, cardiomegaly and pulmonary artery hypertension was also suspected. No chest pain. No palpitations. PAST MEDICAL HISTORY: Reviewed. REVIEW OF SYSTEMS: CARDIOVASCULAR: No angina. RESPIRATORY: As mentioned earlier. HEENT: Diminished hearing, diminished vision. GI: As mentioned. : As mentioned earlier. NERVOUS SYSTEM: No numbness or weakness. CURRENT MEDICATIONS: 1. Tylenol 650 q.6h p.r.n. 2. DuoNeb q.i.d. and p.r.n. 3. Zyloprim. 4. Tenormin 12.5 daily. 5. Zithromax 5 mg. 6. Alphagan. 7. Rocaltrol 0.25 mg. 9. Iron sulfate. 10.NovoLog. 11.Solu-Medrol 60 IV. 12.Multivitamin. 13.Prozac. 14.Requip. 15.Flomax. 16.Timoptic. PHYSICAL EXAM: Patient is alert, oriented x3. Pulse is 90, blood pressure 102/60, respiration 18, temperature 97.4, pulse ox 98% on room air. HEENT: Conjunctivae normal. Oral mucosa moist. NECK: No jugular venous distention. No carotid bruit. No lymph node enlargement. CARDIOVASCULAR: S1, S2. RESPIRATORY: Breath sounds diminished in the bases. A few scattered rhonchi and crackles, especially on the left side. ABDOMEN: Soft, nontender. No mass palpable. LEGS: No edema. NERVOUS SYSTEM: No focal deficits. LABS: WBC 5.7, hemoglobin 11, creatinine 3.85. UA noted. ASSESSMENT: 1. Chronic obstructive pulmonary disease acute exacerbation. 2. Left lower pneumonia as well as left pleural effusion possibly gram-negative, status post thoracocentesis 2.4 L of fluid. 3. Renal failure, chronic with stage IV possibly. 4. History of hypertension. 5. Coumadin monitoring. 6. History of cardiomyopathy. 7. History of atrial fibrillation. 8. Coumadin coagulopathy. RECOMMENDATION AND DISCUSSION: I recommend to continue current medications, continue with monitoring and symptomatic treatment. Otherwise at this time I would recommend to continue to monitor. Otherwise, we will hold the Coumadin at this time. Monitor PT/INR closely. Continue the steroids, monitor closely. CT scan noted. Prognosis guarded because of multiple complex medical issues. Further recommendations to follow. MMODL / IJN: [id number] / JASON
[2017-12-28 19:51] LABS: Appearance,BF Bloody; Color,BF Red; Nucleated Cells, Body Fluid 2750 /uL
[2017-12-28 19:52] LABS: RBC, Body Fluid 35125 /uL
[2017-12-28 20:05] LABS: Mononuclear WBC,Body Fluid 37 %; Polynuclear WBC,Body Fluid 8 %; Total Cells Counted,Body Fluid 76
--- NOTE | 2017-12-28 20:08 | OP ---
OPERATIVE REPORT INDICATION: Pleural effusion, left side. PREOPERATIVE DIAGNOSIS: Left-sided pleural effusion. POSTOPERATIVE DIAGNOSIS: Left-sided pleural effusion. A time-out was completed verifying correct patient, procedure, site, positioning , and implant (s) or special equipment if applicable. Ultrasound guidance was not used and appropriate fluid pocket was identified and marked. Patient was positioned, prepped and draped in usual sterile fashion. Lidocaine was used to anesthetize the area. A Thoracentesis catheter was introduced into the pleural space and fluid was removed. Blood loss was none. A chest x-ray was ordered to evaluate for pneumothorax. Total Fluid Removed: 2.4 L. Color of Fluid: Bloody. Patient tolerated the procedure well and there were no bedside complications or bleeding. CT scan of the chest is to follow. MMODL / IJN: [id number] /
[2017-12-28] MEDS ORDERED: ALPRAZolam 0.25 MG TAB PO PRN (20:35)
[2017-12-28] MEDS ORDERED: SODIUM BICARBONATE TAB 650 MG TAB PO SCH (21:00)
[2017-12-28] MEDS: CHOLECALCIFEROL 1,000 UNIT TAB PO SCH (21:41)
[2017-12-28] MEDS: rOPINIRole HCL 4 MG TABLET PO SCH (21:41)
[2017-12-28 21:42] LABS: Glucose,Whole Blood 154 mg/dL (75-99)
[2017-12-28] MEDS: PRAVASTATIN SODIUM 20 MG TAB PO SCH (21:42)
[2017-12-28] MEDS: FERROUS SULFATE 325 MG TAB PO SCH (21:42)
[2017-12-28] MEDS: MULTIVITAMINS, THERA 1 EACH TAB PO SCH (21:42)
[2017-12-28] MEDS: ALLOPURINOL 100 MG TAB PO SCH (21:42)
[2017-12-28] MEDS: TEMAZEPAM 15 MG CAP PO PRN (23:00)
[2017-12-28] MEDS: methylPREDNISolone SOD SUCCI 40 MG/ML 1 ML VIAL IV SCH (23:01)
[2017-12-29 01:13] LABS: Total Protein, Body Fluid 2890 mg/dL
[2017-12-29 06:48] LABS: Glucose,Whole Blood 148 mg/dL (75-99)
[2017-12-29] MEDS: IPRATROPIUM-ALBUTEROL 3 ML NEB INHALATION SCH ×4 (07:30→20:52)
[2017-12-29] MEDS: methylPREDNISolone SOD SUCCI 40 MG/ML 1 ML VIAL IV SCH ×3 (07:39→23:19)
[2017-12-29] MEDS: TIMOLOL 0.5% OPHTH DROPS 5 ML BTL BOTH EYES SCH (07:39)
[2017-12-29] MEDS: AZITHROMYCIN 500 MG TAB PO SCH (07:39)
[2017-12-29] MEDS: cefTRIAXone IN SWFI 1,000 MG/10 ML SYRINGE IVP SCH (07:39)
[2017-12-29] MEDS: SODIUM BICARBONATE TAB 650 MG TAB PO SCH ×2 (07:40→20:47)
[2017-12-29] MEDS: INSULIN ASPART 100 UNIT/ML 1 ML 10 ML VIAL SQ SCH ×4 (07:40→21:00)
[2017-12-29] MEDS: TAMSULOSIN 0.4 MG CAP.ER.24H PO SCH (07:40)
[2017-12-29] MEDS: BRIMONIDINE TARTRATE 0.2% DROPS 5 ML BTL BOTH EYES SCH ×2 (08:23→20:46)
[2017-12-29 08:27] LABS: Basophils % (A) 0 %; Eosinophils % (A) 0 %; HGB 10.6 gm/dL (13.0-17.5); Hypochromasia Moderate; INR 4.7 (<1.2); Lymphocytes # (A) 0.5 k/uL (1.0-4.8); Lymphocytes % (A) 4 %; MCH 29.5 pg (25.0-35.0); MCHC 30.4 g/dL (31.0-37.0); Mean Platelet Volume 7.7; Monocytes # (A) 0.4 k/uL (0-1.0); Monocytes % (A) 3 %; Neutrophils # (A) 9.8 k/uL (1.3-7.7); Neutrophils % (A) 92 %; Platelet Count 147 k/uL (150-450); Prothrombin Time 42.7 sec (9.0-12.0); RDW 14.7 % (11.5-15.5); WBC 10.7 k/uL (3.8-10.6)
[2017-12-29 08:56] LABS: Calcium 8.3 mg/dL (8.4-10.2); Phosphorus 5.1 mg/dL (2.5-4.5); Potassium 4.5 mmol/L (3.5-5.1)
--- NOTE | 2017-12-29 13:54 | P.PN ---
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 He was admitted with pneumonia and is doing very well is on room air has any shortness of breath or cough fever chills. Good appetite. To walk without any dizziness. Scan did go up somewhat.blood pressure is somewhat low in the 111/63 range. Afebrile, heart rate in the 80s. 24-hour intake and output are not well documented Objective - Vital Signs Vital signs: Vital Signs Temp 97.8 F 12/29/17 06:21 Pulse 88 12/29/17 11:34 Resp 18 12/29/17 06:21 BP 103/58 12/29/17 06:21 Pulse Ox 94 L 12/29/17 06:21 Intake & Output 12/28/17 12/29/17 12/29/17 18:59 06:59 18:59 Intake Total 10 Balance 10 Intake: IV 10 saline flush 10 Other: Voiding Method Toilet Toilet Toilet Urinal # Voids 1 1 On examination is awake alert oriented comfortable HEENT exam no JVP neck is supple no facial asymmetry Lungs are significant for bilateral coarse crackle not clear but cough Heart sounds are unremarkable for any murmur rub gallop Abdomen soft nontender no ascites masses Extremity exam was no edema Neurologically awake alert oriented no asterixis. - Labs CBC & Chem 7: 12/29/17 07:19 12/29/17 07:19 Labs: Abnormal Lab Results - Last 24 Hours (Table) 12/28/17 12/28/17 12/29/17 Range/Units 17:17 21:40 06:43 WBC (3.8-10.6) k/uL RBC (4.30-5.90) m/uL Hgb (13.0-17.5) gm/dL Hct (39.0-53.0) % MCHC (31.0-37.0) g/dL Plt Count (150-450) k/uL Neutrophils # (1.3-7.7) k/uL Lymphocytes # (1.0-4.8) k/uL PT (9.0-12.0) sec INR (<1.2) Chloride (98-107) mmol/L Carbon Dioxide (22-30) mmol/L BUN (9-20) mg/dL Creatinine (0.66-1.25) mg/dL Glucose (74-99) mg/dL POC Glucose (mg/dL) 157 H 154 H 148 H (75-99) mg/dL Calcium (8.4-10.2) mg/dL Phosphorus (2.5-4.5) mg/dL 12/29/17 12/29/17 12/29/17 Range/Units 07:19 07:19 07:19 WBC 10.7 H (3.8-10.6) k/uL RBC 3.60 L (4.30-5.90) m/uL Hgb 10.6 L (13.0-17.5) gm/dL Hct 35.0 L (39.0-53.0) % MCHC 30.4 L (31.0-37.0) g/dL Plt Count 147 L (150-450) k/uL Neutrophils # 9.8 H (1.3-7.7) k/uL Lymphocytes # 0.5 L (1.0-4.8) k/uL PT 42.7 H (9.0-12.0) sec INR 4.7 H (<1.2) Chloride 110 H (98-107) mmol/L Carbon Dioxide 18 L (22-30) mmol/L BUN 89 H* (9-20) mg/dL Creatinine 4.50 H (0.66-1.25) mg/dL Glucose 139 H (74-99) mg/dL POC Glucose (mg/dL) (75-99) mg/dL Calcium 8.3 L (8.4-10.2) mg/dL Phosphorus 5.1 H (2.5-4.5) mg/dL Microbiology - Last 24 Hours (Table) 12/28/17 09:45 Gram Stain - Preliminary Sputum 12/27/17 14:30 Blood Culture - Preliminary Blood No Growth after 24 hours Assessment and Plan Assessment: Impression 1. Acute kidney injury from pneumonia. Possibly low blood pressure is adding an element to it. 2. Chronic kidney disease stage V FSGS. 3. Admitted with pneumonia. Computed tomography scan of the chest showed small residual left pleural effusion after thoracentesis left lung infiltrate cardiomegaly and chronic parenchymal changes bilaterally. 4. Anemia with hemoglobin 10.6 at target. Recommendation. 1. Discontinue atenolol which is taking 12.5 mg every 48 hours 2. Maintain same medications, including bicarb. 3. Monitor labs closely as creatinine is gone up. Blood pressure is somewhat low that might
[2017-12-29] MEDS ORDERED: PHYTONADIONE ORAL 5 MG/5 ML ORAL.SYRG PO STA (14:37)
--- NOTE | 2017-12-29 15:03 | XR ---
EXAMINATION TYPE: XR chest 1V portable DATE OF EXAM: 12/29/2017 COMPARISON: Prior chest x-ray 12/28/2017, CT scan same date HISTORY: Status post thoracentesis TECHNIQUE: Single frontal view of the chest is obtained. FINDINGS: There is been interval left thoracentesis. There is improvement in aeration at the left subha ng base. No evident pneumothorax. IMPRESSION: No evident complication status post thoracentesis.
--- NOTE | 2017-12-29 15:48 | PN ---
PROGRESS NOTE DATE OF SERVICE: 12/29/2017 82-year-old gentleman admitted with multiple medical issues and possibly left-sided pneumonia and parapneumonic effusion also had thoracocentesis by Dr. Gloria. 2.5 L of bloody fluid is obtained at this time. The final reports of the fluid is pending at this time. Hepatitis panel is unremarkable. The creatinine has worsened today slightly to 4.50. The patient is also seen by the Nephrology as well. Dr. Daley has seen the patient today and recommended continue with bicarb and continue with monitoring. The patient had stage 5 FSGS. The patient closely monitored. PAST MEDICAL HISTORY: Reviewed. REVIEW OF SYSTEMS: CARDIOVASCULAR: As mentioned earlier. GI: As mentioned. : As mentioned. NERVOUS SYSTEM: Diffusely weak. CURRENT MEDICATIONS: Reviewed and include: 1. Tylenol 650 q.6h p.r.n. 2. DuoNeb q.i.d. and p.r.n. 3. Zyloprim 100 mg q.h.s. 4. Xanax 0.5 t.i.d. 5. Zithromax 500 mg p.o. daily. 6. Alphagan 0.21 drop b.i.d. 7. Rocaltrol 0.25 q.40. 8. Rocephin 1 g daily. 9. Vitamin D2 2000 units q.h.s. 10.Iron sulfate 320 mg. 11.NovoLog a.c. and at bedtime. 12.Solu-Medrol 40 IV q.8h. 13.Replacement protocols. 14.Multivitamins. 15.Pravachol 10 mg daily. 16.Requip 4 mg q.h.s. 17.Sodium bicarb 650 p.o. b.i.d. 18.Flomax 0.4 daily. 19.Restoril 50 mg q.h.s. 20.Timoptic 1 drop both eyes daily. PHYSICAL EXAM: Patient is alert, oriented x2. Pulse is 82, blood pressure 103/58, respirations 18, temperature 97.8, pulse ox 94% on room air. HEENT: Conjunctivae normal. Oral mucosa moist. NECK: No jugular venous distention. CARDIOVASCULAR: S1, S2. No S3, no S4. RESPIRATORY: Breath sounds diminished in the bases, especially on the left side. Rhonchi and crackles more on the left than the right. ABDOMEN: Soft, nontender. No mass palpable. LEGS: No edema, no swelling. NERVOUS SYSTEM: Higher functions as mentioned. Moves all four limbs. No focal motor deficits. LYMPHATICS: No lymphadenopathy in the neck, axillae, groin. SKIN: No ulcer, rash, bleeding. LABS: WBC 10.7, hemoglobin is 10.6, and INR is 4.7. Otherwise CO2 is 18 and creatinine is 4.50. ASSESSMENT: 1. Chronic obstructive pulmonary disease acute exacerbation. 2. Left lower pneumonia as well as left pleural effusion possibly gram-negative, status post thoracocentesis 2.4 L of fluid. 3. 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 4. History of hypertension. 5. Coumadin monitoring. 6. Mild Coumadin coagulopathy. 7. History of cardiomyopathy. 8. History atrial fibrillation. RECOMMENDATIONS AND DISCUSSION: I recommend to continue current management. I would recommend to monitor PT/INR closely. Vitamin K 2.5 mg today. Continue rest of medications. Await biopsy report. Otherwise, closely follow with Nephrology as mentioned earlier and creatinine has slightly worsened today. Avoid nephrotoxic medications. Further recommendations to follow. MMODL / IJN: [id number] /
[2017-12-29 16:38] LABS: Glucose,Whole Blood 155 mg/dL (75-99)
--- NOTE | 2017-12-29 16:38 | P.PN ---
Subjective Progress Note Date: 12/29/17 Principal diagnosis: Large left-sided pleural effusion. Suspect parapneumonic effusion versus malignancy. 82-year-old male patient with known history of chronic renal failure, currently on no dialysis, was coming into the hospital because of worsening shortness of breath over the past few weeks. The patient was found to have a large left- sided pleural effusion. Pulmonary consultation was requested. The patient claims that he had a pleural effusion approximately 3 years ago and this procedure was done by Dr. Favio Sage, however this was on the right side and a total of 1.8 L of pleural fluid was aspirated without any complications. The pleural fluid cytology was negative for malignancy. The patient is presenting with a large left-sided pleural effusion during this current admission. No significant fever or chills. No cough no sputum production no pleurisy. A bedside thoracentesis was done a total of 2.4 L of hemorrhagic bloody pleural effusion was aspirated from the left lung without any complication. A CAT scan of the chest is to follow. No constitutional symptoms. No pleurisy. No chest pain. The patient is known to have COPD and addition to chronic renal failure. Other medical problems include hypertension and hyperlipidemia and BPH. The patient is seen today 12/29/2017 in follow-up on the regular medical floor. He is awake and alert in no acute distress. He is breathing quite a bit easier today as compared to yesterday. He is status post 2.4 L of bloody fluid removed from thoracentesis yesterday. Total protein 2.8, LDH 2.51. Pathology is pending. White count 10.7. Hemoglobin 10.6. INR 4.7. He was given a dose of vitamin K today. Creatinine 4.50. Bicarb 18. He is currently on sodium bicarb tablets. Objective - Vital Signs Vital signs: Vital Signs Temp 98 F 12/29/17 14:42 Pulse 80 12/29/17 14:42 Resp 18 12/29/17 14:42 BP 118/76 12/29/17 14:42 Pulse Ox 93 L 12/29/17 14:42 Intake & Output 12/28/17 12/29/17 12/29/17 18:59 06:59 18:59 Intake Total 10 20 Balance 10 20 Intake: IV 10 20 saline flush 10 20 Other: Voiding Method Toilet Toilet Toilet Urinal # Voids 1 1 - Exam Gen. appearance the patient is calm comfortable likely distress Head exam was generally normal. There was no scleral icterus or corneal arcus. Mucous membranes were moist. Neck was supple and without jugular venous distension, thyromegaly, or carotid bruits. Carotids were easily palpable bilaterally. There was no adenopathy. Lungs sounds are diminished in the left lung base Cardiac exam revealed the PMI to be normally situated and sized. The rhythm was regular and no extrasystoles were noted during several minutes of auscultation. The first and second heart sounds were normal and physiologic splitting of the second heart sound was noted. There were no murmurs, rubs, clicks, or gallops. Abdominal exam revealed normal bowel sounds. The abdomen was soft, non-tender, and without masses, organomegaly, or appreciable enlargement of the abdominal aorta. Extremities the patient has a functional AV fistula in the right upper extremity.Examination of the extremities revealed easily palpable radial, femoral and pedal pulses. There was no cyanosis, clubbing or edema. Neurologically awake and alert there is no deficit Examination of the skin revealed no evidence of significant rashes, suspicious appearing nevi or other concerning lesions. - Labs CBC & Chem 7: 12/29/17 07:19 12/29/17 07:19 Labs: Abnormal Lab Results - Last 24 Hours (Table) 12/28/17 12/28/17 12/29/17 Range/Units 17:17 21:40 06:43 WBC (3.8-10.6) k/uL RBC (4.30-5.90) m/uL Hgb (13.0-17.5) gm/dL Hct (39.0-53.0) % MCHC (31.0-37.0) g/dL Plt Count (150-450) k/uL Neutrophils # (1.3-7.7) k/uL Lymphocytes # (1.0-4.8) k/uL PT (9.0-12.0) sec INR (<1.2) Chloride (98-107) mmol/L Carbon Dioxide (22-30) mmol/L BUN (9-20) mg/dL Creatinine (0.66-1.25) mg/dL Glucose (74-99) mg/dL POC Glucose (mg/dL) 157 H 154 H 148 H (75-99) mg/dL Calcium (8.4-10.2) mg/dL Phosphorus (2.5-4.5) mg/dL 12/29/17 12/29/17 12/29/17 Range/Units 07:19 07:19 07:19 WBC 10.7 H (3.8-10.6) k/uL RBC 3.60 L (4.30-5.90) m/uL Hgb 10.6 L (13.0-17.5) gm/dL Hct 35.0 L (39.0-53.0) % MCHC 30.4 L (31.0-37.0) g/dL Plt Count 147 L (150-450) k/uL Neutrophils # 9.8 H (1.3-7.7) k/uL Lymphocytes # 0.5 L (1.0-4.8) k/uL PT 42.7 H (9.0-12.0) sec INR 4.7 H (<1.2) Chloride 110 H (98-107) mmol/L Carbon Dioxide 18 L (22-30) mmol/L BUN 89 H* (9-20) mg/dL Creatinine 4.50 H (0.66-1.25) mg/dL Glucose 139 H (74-99) mg/dL POC Glucose (mg/dL) (75-99) mg/dL Calcium 8.3 L (8.4-10.2) mg/dL Phosphorus 5.1 H (2.5-4.5) mg/dL Microbiology - Last 24 Hours (Table) 12/28/17 09:45 Gram Stain - Preliminary Sputum 12/27/17 14:30 Blood Culture - Preliminary Blood No Growth after 24 hours Assessment and Plan Assessment: Assessment 1 large left-sided pleural effusion postthoracentesis and evacuation of 2.4 L of bloody effusion without any complications. CAT scan of the chest is to follow. Chemical analysis of the pleural fluid is to follow. Fluid cytology is to follow. Rule out malignancy. Rule out parapneumonic effusion. 2 shortness of breath secondary to above, improved postthoracentesis 3 chronic renal failure not on hemodialysis. Creatinine 4.50. 4 hypertension 5 hyperlipidemia 6 chronic anemia 7 previous history of a right-sided pleural effusion evacuated through a thoracentesis back in 2014 8 chronic atrial fibrillation, anticoagulated with warfarin, supra therapeutic Plan The patient was seen and evaluated by Dr. Gloria. He is improved quite a bit today as compared to yesterday. Status post thoracentesis of 2.4 L of bloody fluid removed. Pathology is pending. Follow-up computed tomography scan of the chest revealed a small residual left pleural effusion. There is a small area of groundglass opacity in the left lung reflecting reexpansion alveolar edema. There is also some mild to moderate scattered chronic parenchymal changes bilaterally. He denies any worsening shortness of breath, cough or congestion. He is cleared for discharge from the pulmonary standpoint. He could follow-up in our office with Dr. Ortiz. I, the cosigning physician, performed a history & physical examination of the patient. Lungs sounds faint crackles in left posterior base. Maintaining good O2 saturations in the 90s on room air. I discussed the assessment and plan of care with my nurse practitioner, Charity Diallo. I attest to the above note as dictated by her.
[2017-12-29 16:39] LABS: Glucose,Whole Blood 129 mg/dL (75-99)
[2017-12-29 20:20] LABS: Glucose,Whole Blood 207 mg/dL (75-99)
[2017-12-29] MEDS: DOCUSATE 100 MG CAP PO SCH (20:45)
[2017-12-29] MEDS: ALLOPURINOL 100 MG TAB PO SCH (20:46)
[2017-12-29] MEDS: CHOLECALCIFEROL 1,000 UNIT TAB PO SCH (20:46)
[2017-12-29] MEDS: MULTIVITAMINS, THERA 1 EACH TAB PO SCH (20:47)
[2017-12-29] MEDS: FERROUS SULFATE 325 MG TAB PO SCH (20:47)
[2017-12-29] MEDS: PRAVASTATIN SODIUM 20 MG TAB PO SCH (20:47)
[2017-12-29] MEDS: rOPINIRole HCL 4 MG TABLET PO SCH (20:47)
[2017-12-29] MEDS: TEMAZEPAM 15 MG CAP PO PRN (20:59)
[2017-12-30 07:28] LABS: Glucose,Whole Blood 152 mg/dL (75-99)
[2017-12-30] MEDS: TIMOLOL 0.5% OPHTH DROPS 5 ML BTL BOTH EYES SCH (07:34)
[2017-12-30] MEDS: BRIMONIDINE TARTRATE 0.2% DROPS 5 ML BTL BOTH EYES SCH ×2 (07:35→21:30)
[2017-12-30] MEDS: SODIUM BICARBONATE TAB 650 MG TAB PO SCH ×2 (07:35→21:31)
[2017-12-30] MEDS: cefTRIAXone IN SWFI 1,000 MG/10 ML SYRINGE IVP SCH (07:35)
[2017-12-30] MEDS: DOCUSATE 100 MG CAP PO SCH (07:35)
[2017-12-30] MEDS: TAMSULOSIN 0.4 MG CAP.ER.24H PO SCH (07:35)
[2017-12-30] MEDS: INSULIN ASPART 100 UNIT/ML 1 ML 10 ML VIAL SQ SCH ×4 (07:36→21:30)
[2017-12-30] MEDS: AZITHROMYCIN 500 MG TAB PO SCH (07:36)
[2017-12-30] MEDS: methylPREDNISolone SOD SUCCI 40 MG/ML 1 ML VIAL IV SCH ×3 (07:36→23:11)
[2017-12-30 07:50] LABS: INR 2.1 (<1.2); Prothrombin Time 18.9 sec (9.0-12.0)
[2017-12-30 07:57] LABS: Basophils % (A) 0 %; Eosinophils % (A) 0 %; HCT 35.1 % (39.0-53.0); HGB 10.5 gm/dL (13.0-17.5); Hypochromasia Marked; Lymphocytes # (A) 0.4 k/uL (1.0-4.8); Lymphocytes % (A) 4 %; MCH 29.3 pg (25.0-35.0); MCHC 29.9 g/dL (31.0-37.0); Mean Platelet Volume 8.2; Monocytes # (A) 0.3 k/uL (0-1.0); Monocytes % (A) 3 %; Neutrophils # (A) 8.8 k/uL (1.3-7.7); Neutrophils % (A) 92 %; Platelet Count 161 k/uL (150-450); RBC 3.59 m/uL (4.30-5.90); WBC 9.6 k/uL (3.8-10.6)
[2017-12-30 08:03] LABS: Calcium 8.2 mg/dL (8.4-10.2); Potassium 4.3 mmol/L (3.5-5.1)
[2017-12-30] MEDS: IPRATROPIUM-ALBUTEROL 3 ML NEB INHALATION SCH ×4 (08:17→21:13)
[2017-12-30 11:18] LABS: Glucose,Whole Blood 151 mg/dL (75-99)
--- NOTE | 2017-12-30 12:30 | P.PN ---
Subjective Progress Note Date: 12/30/17 Principal diagnosis: This is a 82-year-old male with chronic kidney disease stage V secondary to FSGS who is ready for dialysis. He was admitted with pneumonia and is doing very well is on room air has any shortness of breath or cough fever chills. Good appetite. Able to walk without any dizziness. Other than this review of system is unremarkable. Objective - Vital Signs Vital signs: Vital Signs Temp 96.7 F L 12/30/17 05:00 Pulse 80 12/30/17 11:56 Resp 16 12/30/17 05:00 BP 121/77 12/30/17 05:00 Pulse Ox 93 L 12/30/17 05:00 Intake & Output 12/29/17 12/30/17 12/30/17 18:59 06:59 18:59 Intake Total 20 990 Output Total 200 Balance 20 990 -200 Intake: IV 20 saline flush 20 Oral 990 Output: Urine 200 Other: Voiding Method Toilet Toilet Toilet Urinal Urinal Urinal # Voids 1 On examination is awake alert oriented comfortable HEENT exam no JVP neck supple no facial asymmetry. Lungs are clear to auscultation and percussion except for an occasional end expiratory wheezing. Good air entry bilaterally Heart sounds are unremarkable for any murmur rub gallop Abdomen soft nontender no masses felt Extremity exam was no edema He has a functioning Jett fistula on the right upper arm. Neurologically awake alert oriented no asterixis. - Labs CBC & Chem 7: 12/30/17 07:01 12/30/17 07:01 Labs: Abnormal Lab Results - Last 24 Hours (Table) 12/29/17 12/29/17 12/29/17 Range/Units 11:10 16:25 20:18 RBC (4.30-5.90) m/uL Hgb (13.0-17.5) gm/dL Hct (39.0-53.0) % MCHC (31.0-37.0) g/dL Neutrophils # (1.3-7.7) k/uL Lymphocytes # (1.0-4.8) k/uL PT (9.0-12.0) sec INR (<1.2) Chloride (98-107) mmol/L Carbon Dioxide (22-30) mmol/L BUN (9-20) mg/dL Creatinine (0.66-1.25) mg/dL Glucose (74-99) mg/dL POC Glucose (mg/dL) 155 H 129 H 207 H (75-99) mg/dL Calcium (8.4-10.2) mg/dL 12/30/17 12/30/17 12/30/17 Range/Units 07:01 07:01 07:01 RBC 3.59 L (4.30-5.90) m/uL Hgb 10.5 L (13.0-17.5) gm/dL Hct 35.1 L (39.0-53.0) % MCHC 29.9 L (31.0-37.0) g/dL Neutrophils # 8.8 H (1.3-7.7) k/uL Lymphocytes # 0.4 L (1.0-4.8) k/uL PT 18.9 H (9.0-12.0) sec INR 2.1 H (<1.2) Chloride 110 H (98-107) mmol/L Carbon Dioxide 17 L (22-30) mmol/L BUN 100 H* (9-20) mg/dL Creatinine 4.35 H (0.66-1.25) mg/dL Glucose 144 H (74-99) mg/dL POC Glucose (mg/dL) (75-99) mg/dL Calcium 8.2 L (8.4-10.2) mg/dL 12/30/17 12/30/17 Range/Units 07:26 11:17 RBC (4.30-5.90) m/uL Hgb (13.0-17.5) gm/dL Hct (39.0-53.0) % MCHC (31.0-37.0) g/dL Neutrophils # (1.3-7.7) k/uL Lymphocytes # (1.0-4.8) k/uL PT (9.0-12.0) sec INR (<1.2) Chloride (98-107) mmol/L Carbon Dioxide (22-30) mmol/L BUN (9-20) mg/dL Creatinine (0.66-1.25) mg/dL Glucose (74-99) mg/dL POC Glucose (mg/dL) 152 H 151 H (75-99) mg/dL Calcium (8.4-10.2) mg/dL Microbiology - Last 24 Hours (Table) 12/27/17 14:30 Blood Culture - Preliminary Blood No Growth after 48 hours Assessment and Plan Assessment: Impression 1. Acute kidney injury from pneumonia. Possibly low blood pressure is adding an element to it. Creatinine slowly improving, peaked at 4.5 and is down to 4.35 today 2. Chronic kidney disease stage V FSGS. 3. Admitted with pneumonia. Computed tomography scan of the chest showed small residual left pleural effusion after thoracentesis left lung infiltrate cardiomegaly and chronic parenchymal changes bilaterally. 4. Anemia with hemoglobin 10.6 at target. 5. Mild degree of non-gap acidosis with bicarb of 17 and gap of 11 Recommendation. 1. Watch blood pressure as it is low, and on 12/29/2017 yesterday I have discontinued Discontinue atenolol which is taking 12.5 mg every 48 hours 2. Maintain same medications, including bicarb. 3. Monitor labs closely. 4. Blood pressure is somewhat low that might
--- NOTE | 2017-12-30 16:04 | P.PN ---
Subjective Progress Note Date: 12/30/17 Principal diagnosis: Large left-sided pleural effusion. Suspect parapneumonic effusion versus malignancy. 82-year-old male patient with known history of chronic renal failure, currently on no dialysis, was coming into the hospital because of worsening shortness of breath over the past few weeks. The patient was found to have a large left- sided pleural effusion. Pulmonary consultation was requested. The patient claims that he had a pleural effusion approximately 3 years ago and this procedure was done by Dr. Favio Sage, however this was on the right side and a total of 1.8 L of pleural fluid was aspirated without any complications. The pleural fluid cytology was negative for malignancy. The patient is presenting with a large left-sided pleural effusion during this current admission. No significant fever or chills. No cough no sputum production no pleurisy. A bedside thoracentesis was done a total of 2.4 L of hemorrhagic bloody pleural effusion was aspirated from the left lung without any complication. A CAT scan of the chest is to follow. No constitutional symptoms. No pleurisy. No chest pain. The patient is known to have COPD and addition to chronic renal failure. Other medical problems include hypertension and hyperlipidemia and BPH. The patient is seen today 12/29/2017 in follow-up on the regular medical floor. He is awake and alert in no acute distress. He is breathing quite a bit easier today as compared to yesterday. He is status post 2.4 L of bloody fluid removed from thoracentesis yesterday. Total protein 2.8, LDH 2.51. Pathology is pending. White count 10.7. Hemoglobin 10.6. INR 4.7. He was given a dose of vitamin K today. Creatinine 4.50. Bicarb 18. He is currently on sodium bicarb tablets. She is seen again today 12/30/2017 in follow-up in the regular medical floor. He is awake and alert in no acute distress. He continues to have no further pulmonary complaints. He is maintaining good O2 saturations in the 90s on room air. No leukocytosis. He is having ongoing issues with renal failure. Current creatinine 4.35. BUN of 100. INR 2.1. Objective - Vital Signs Vital signs: Vital Signs Temp 97.4 F L 12/30/17 14:50 Pulse 81 12/30/17 14:50 Resp 20 12/30/17 14:50 BP 115/69 12/30/17 14:50 Pulse Ox 94 L 12/30/17 14:50 Intake & Output 12/29/17 12/30/17 12/30/17 18:59 06:59 18:59 Intake Total 20 990 Output Total 200 Balance 20 990 -200 Intake: IV 20 saline flush 20 Oral 990 Output: Urine 200 Other: Voiding Method Toilet Toilet Toilet Urinal Urinal Urinal # Voids 1 - Exam Gen. appearance the patient is calm comfortable likely distress Head exam was generally normal. There was no scleral icterus or corneal arcus. Mucous membranes were moist. Neck was supple and without jugular venous distension, thyromegaly, or carotid bruits. Carotids were easily palpable bilaterally. There was no adenopathy. Lungs sounds are diminished in the left lung base Cardiac exam revealed the PMI to be normally situated and sized. The rhythm was regular and no extrasystoles were noted during several minutes of auscultation. The first and second heart sounds were normal and physiologic splitting of the second heart sound was noted. There were no murmurs, rubs, clicks, or gallops. Abdominal exam revealed normal bowel sounds. The abdomen was soft, non-tender, and without masses, organomegaly, or appreciable enlargement of the abdominal aorta. Extremities the patient has a functional AV fistula in the right upper extremity.Examination of the extremities revealed easily palpable radial, femoral and pedal pulses. There was no cyanosis, clubbing or edema. Neurologically awake and alert there is no deficit Examination of the skin revealed no evidence of significant rashes, suspicious appearing nevi or other concerning lesions. - Labs CBC & Chem 7: 12/30/17 07:01 12/30/17 07:01 Labs: Abnormal Lab Results - Last 24 Hours (Table) 12/29/17 12/29/17 12/29/17 Range/Units 11:10 16:25 20:18 RBC (4.30-5.90) m/uL Hgb (13.0-17.5) gm/dL Hct (39.0-53.0) % MCHC (31.0-37.0) g/dL Neutrophils # (1.3-7.7) k/uL Lymphocytes # (1.0-4.8) k/uL PT (9.0-12.0) sec INR (<1.2) Chloride (98-107) mmol/L Carbon Dioxide (22-30) mmol/L BUN (9-20) mg/dL Creatinine (0.66-1.25) mg/dL Glucose (74-99) mg/dL POC Glucose (mg/dL) 155 H 129 H 207 H (75-99) mg/dL Calcium (8.4-10.2) mg/dL 12/30/17 12/30/17 12/30/17 Range/Units 07:01 07:01 07:01 RBC 3.59 L (4.30-5.90) m/uL Hgb 10.5 L (13.0-17.5) gm/dL Hct 35.1 L (39.0-53.0) % MCHC 29.9 L (31.0-37.0) g/dL Neutrophils # 8.8 H (1.3-7.7) k/uL Lymphocytes # 0.4 L (1.0-4.8) k/uL PT 18.9 H (9.0-12.0) sec INR 2.1 H (<1.2) Chloride 110 H (98-107) mmol/L Carbon Dioxide 17 L (22-30) mmol/L BUN 100 H* (9-20) mg/dL Creatinine 4.35 H (0.66-1.25) mg/dL Glucose 144 H (74-99) mg/dL POC Glucose (mg/dL) (75-99) mg/dL Calcium 8.2 L (8.4-10.2) mg/dL 12/30/17 12/30/17 Range/Units 07:26 11:17 RBC (4.30-5.90) m/uL Hgb (13.0-17.5) gm/dL Hct (39.0-53.0) % MCHC (31.0-37.0) g/dL Neutrophils # (1.3-7.7) k/uL Lymphocytes # (1.0-4.8) k/uL PT (9.0-12.0) sec INR (<1.2) Chloride (98-107) mmol/L Carbon Dioxide (22-30) mmol/L BUN (9-20) mg/dL Creatinine (0.66-1.25) mg/dL Glucose (74-99) mg/dL POC Glucose (mg/dL) 152 H 151 H (75-99) mg/dL Calcium (8.4-10.2) mg/dL Microbiology - Last 24 Hours (Table) 12/27/17 14:30 Blood Culture - Preliminary Blood No Growth after 48 hours Assessment and Plan Assessment: Assessment 1 large left-sided pleural effusion postthoracentesis and evacuation of 2.4 L of bloody effusion without any complications. The follow-up CT revealed a small residual left pleural effusion after thoracentesis. There is small areas of groundglass opacity in the left lung reflecting reexpansion alveolar edema. Scattered chronic potential changes bilaterally most likely atelectasis. 2 shortness of breath secondary to above, improved postthoracentesis currently on room air. 3 chronic renal failure not on hemodialysis. Creatinine 4.35. 4 hypertension 5 hyperlipidemia 6 chronic anemia 7 previous history of a right-sided pleural effusion evacuated through a thoracentesis back in 2014 8 chronic atrial fibrillation, anticoagulated with warfarin, supra therapeutic Plan The patient was seen and evaluated by Dr. Gloria. He denies any worsening shortness of breath, cough or congestion. He is cleared for discharge from the pulmonary standpoint. He could follow-up in our office with Dr. Ortiz. I, the cosigning physician, performed a history & physical examination of the patient. Lungs sounds faint crackles in left posterior base. Maintaining good O2 saturations in the 90s on room air. I discussed the assessment and plan of care with my nurse practitioner, Charity Diallo. I attest to the above note as dictated by her.
--- NOTE | 2017-12-30 16:28 | PN ---
PROGRESS NOTE DATE OF SERVICE: 12/30/2017 This 82-year-old gentleman who was admitted with multiple medical issues, had COPD acute exacerbation. Patient also had left pneumonia and pleural effusion and also had aspiration. The creatinine is rather slightly stable after worsening yesterday, at 4.35 at this time. BUN is at 100. The patient is closely monitored. Multiple consultants are following the patient closely. Cytology is pending at this time. PHYSICAL EXAM: Alert and oriented x3. Pulse is 78, blood pressure is 121/77, respirations 16, temperature 96.7, pulse ox 98% on room air. HEENT: Conjunctivae normal. Oral mucosa moist. NECK: No jugular venous distention. No carotid bruit. No lymph node enlargement. CARDIOVASCULAR: S1, S2. RESPIRATORY: Breath sounds diminished in the bases. A few scattered rhonchi and crackles on the left side. ABDOMEN: Soft, nontender. No mass palpable. LEGS: No edema. NERVOUS SYSTEM: No focal deficits. LABS: WBC 9, hemoglobin is 10.5, INR 2.1. Otherwise other labs are noted. ASSESSMENT: 1. Chronic obstructive pulmonary disease exacerbation with left lower pneumonia possibly left pleural effusion possibly gram-negative. 2. Status post thoracocentesis with 2.4 L fluid. 3. 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 4. History of hypertension. 5. Coumadin monitoring. 6. Mild Coumadin coagulopathy, improved. 7. History of cardiomyopathy. 8. History of atrial fibrillation. RECOMMENDATIONS AND DISCUSSION: I recommend to continue current medications, continue monitoring and symptomatic treatment. Otherwise at this time will monitor the creatinine closely. Otherwise monitor the lung status closely and the chest x-ray done yesterday was reviewed personally by me. Otherwise continue to monitor with multiple consultants. Prognosis guarded. Await cytology. Discussed with family members. Further recommendations to follow. Chest x-ray shows some improvement. Further recommendations to follow. MMODL / IJN: [id number] /
[2017-12-30 17:24] LABS: Glucose,Whole Blood 158 mg/dL (75-99)
[2017-12-30] MEDS ORDERED: WARFARIN 7.5 MG TAB PO SCH (18:00)
[2017-12-30 20:22] LABS: Glucose,Whole Blood 138 mg/dL (75-99)
[2017-12-30] MEDS: ALLOPURINOL 100 MG TAB PO SCH (21:29)
[2017-12-30] MEDS: FERROUS SULFATE 325 MG TAB PO SCH (21:30)
[2017-12-30] MEDS: CHOLECALCIFEROL 1,000 UNIT TAB PO SCH (21:30)
[2017-12-30] MEDS: rOPINIRole HCL 4 MG TABLET PO SCH (21:31)
[2017-12-30] MEDS: MULTIVITAMINS, THERA 1 EACH TAB PO SCH (21:31)
[2017-12-30] MEDS: PRAVASTATIN SODIUM 20 MG TAB PO SCH (21:31)
[2017-12-30] MEDS: ACETAMINOPHEN TAB 325 MG TAB PO PRN (21:39)
[2017-12-30] MEDS: TEMAZEPAM 15 MG CAP PO PRN (22:33)
[2017-12-31 07:07] LABS: Glucose,Whole Blood 142 mg/dL (75-99)
[2017-12-31] MEDS: SODIUM BICARBONATE TAB 650 MG TAB PO SCH ×3 (07:47→12:38)
[2017-12-31] MEDS: INSULIN ASPART 100 UNIT/ML 1 ML 10 ML VIAL SQ SCH ×2 (07:47→12:38)
[2017-12-31] MEDS: TIMOLOL 0.5% OPHTH DROPS 5 ML BTL BOTH EYES SCH (07:47)
[2017-12-31] MEDS: DOCUSATE 100 MG CAP PO SCH (07:48)
[2017-12-31] MEDS: BRIMONIDINE TARTRATE 0.2% DROPS 5 ML BTL BOTH EYES SCH (07:48)
[2017-12-31] MEDS: TAMSULOSIN 0.4 MG CAP.ER.24H PO SCH (07:48)
[2017-12-31] MEDS: cefTRIAXone IN SWFI 1,000 MG/10 ML SYRINGE IVP SCH (07:48)
[2017-12-31] MEDS: AZITHROMYCIN 500 MG TAB PO SCH (07:49)
[2017-12-31] MEDS: methylPREDNISolone SOD SUCCI 40 MG/ML 1 ML VIAL IV SCH (07:49)
--- NOTE | 2017-12-31 08:18 | P.PN ---
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 He was admitted with pneumonia and is doing very well is on room air, he is comfortable. He is denying any shortness of breath or cough fever chills. Good appetite. Able to walk without any dizziness. Other than this review of system is unremarkable. Objective - Vital Signs Vital signs: Vital Signs Temp 97.5 F L 12/30/17 21:00 Pulse 80 12/30/17 21:25 Resp 16 12/30/17 21:00 BP 123/76 12/30/17 21:00 Pulse Ox 96 12/30/17 21:00 Intake & Output 12/30/17 12/31/17 12/31/17 18:59 06:59 18:59 Intake Total 1190 Output Total 200 Balance -200 1190 Intake: Oral 1190 Output: Urine 200 Other: Voiding Method Toilet Toilet Urinal Urinal # Voids 2 1 On examination comfortable awake alert. Oriented. HEENT exam no JVP neck is supple no facial asymmetry Lungs are significant for an occasional coarse crackle at bases on the left side. Heart sounds are unremarkable for any murmur rub gallop Abdomen soft nontender Extremity exam was no edema Neurologically awake alert oriented without any asterixis - Labs CBC & Chem 7: 12/30/17 07:01 12/30/17 07:01 Labs: Abnormal Lab Results - Last 24 Hours (Table) 12/30/17 12/30/17 12/30/17 Range/Units 07:01 11:17 17:22 Chloride 110 H (98-107) mmol/L Carbon Dioxide 17 L (22-30) mmol/L BUN 100 H* (9-20) mg/dL Creatinine 4.35 H (0.66-1.25) mg/dL Glucose 144 H (74-99) mg/dL POC Glucose (mg/dL) 151 H 158 H (75-99) mg/dL Calcium 8.2 L (8.4-10.2) mg/dL 12/30/17 12/31/17 Range/Units 20:20 07:04 Chloride (98-107) mmol/L Carbon Dioxide (22-30) mmol/L BUN (9-20) mg/dL Creatinine (0.66-1.25) mg/dL Glucose (74-99) mg/dL POC Glucose (mg/dL) 138 H 142 H (75-99) mg/dL Calcium (8.4-10.2) mg/dL Microbiology - Last 24 Hours (Table) 12/27/17 14:30 Blood Culture - Preliminary Blood No Growth after 72 hours Assessment and Plan Assessment: Impression 1. Acute kidney injury from pneumonia. Possibly low blood pressure is adding an element to it. Creatinine slowly improving, peaked at 4.5 and is down to 4.35 as of yesterday and labs are not available today, blood has been drawn. 2. Chronic kidney disease stage V FSGS. 3. Admitted with pneumonia. Computed tomography scan of the chest showed small residual left pleural effusion after thoracentesis left lung infiltrate cardiomegaly and chronic parenchymal changes bilaterally. 4. Anemia with hemoglobin 10.6 at target. Last not available this morning 5. Mild degree of non-gap acidosis with bicarb of 17 and gap of 11, labs are not available this morning Recommendation. 1. No other changes for right now. Watch bicarb as it went down in spite of being on 6 and 50 mg of sodium bicarbonate 2 times daily, will increase it to 4 a day 2. Pending labs this morning. 3. From nephrological perspective he can be discharged.
[2017-12-31 08:34] LABS: Basophils % (A) 0 %; Eosinophils % (A) 0 %; HCT 37.3 % (39.0-53.0); HGB 10.9 gm/dL (13.0-17.5); Hypochromasia Moderate; Lymphocytes # (A) 0.5 k/uL (1.0-4.8); Lymphocytes % (A) 5 %; MCH 28.4 pg (25.0-35.0); MCHC 29.2 g/dL (31.0-37.0); MCV 97.3 fL (80.0-100.0); Mean Platelet Volume 7.6; Monocytes # (A) 0.4 k/uL (0-1.0); Monocytes % (A) 4 %; Neutrophils # (A) 8.7 k/uL (1.3-7.7); Neutrophils % (A) 90 %; Platelet Count 157 k/uL (150-450); RBC 3.83 m/uL (4.30-5.90); RDW 14.9 % (11.5-15.5); WBC 9.6 k/uL (3.8-10.6)
[2017-12-31] MEDS: IPRATROPIUM-ALBUTEROL 3 ML NEB INHALATION SCH ×3 (08:38→16:51)
[2017-12-31 08:45] LABS: INR 1.4 (<1.2); Prothrombin Time 12.9 sec (9.0-12.0)
[2017-12-31 08:56] LABS: Calcium 8.1 mg/dL (8.4-10.2); Potassium 4.9 mmol/L (3.5-5.1)
[2017-12-31 10:01] VITALS: RESP 18
[2017-12-31 11:04] LABS: Glucose,Whole Blood 143 mg/dL (75-99)
--- NOTE | 2017-12-31 14:18 | P.PN ---
Subjective Progress Note Date: 12/31/17 Principal diagnosis: Large left-sided pleural effusion. Suspect parapneumonic effusion versus malignancy. 82-year-old male patient with known history of chronic renal failure, currently on no dialysis, was coming into the hospital because of worsening shortness of breath over the past few weeks. The patient was found to have a large left- sided pleural effusion. Pulmonary consultation was requested. The patient claims that he had a pleural effusion approximately 3 years ago and this procedure was done by Dr. Favio Sage, however this was on the right side and a total of 1.8 L of pleural fluid was aspirated without any complications. The pleural fluid cytology was negative for malignancy. The patient is presenting with a large left-sided pleural effusion during this current admission. No significant fever or chills. No cough no sputum production no pleurisy. A bedside thoracentesis was done a total of 2.4 L of hemorrhagic bloody pleural effusion was aspirated from the left lung without any complication. A CAT scan of the chest is to follow. No constitutional symptoms. No pleurisy. No chest pain. The patient is known to have COPD and addition to chronic renal failure. Other medical problems include hypertension and hyperlipidemia and BPH. The patient is seen today 12/29/2017 in follow-up on the regular medical floor. He is awake and alert in no acute distress. He is breathing quite a bit easier today as compared to yesterday. He is status post 2.4 L of bloody fluid removed from thoracentesis yesterday. Total protein 2.8, LDH 2.51. Pathology is pending. White count 10.7. Hemoglobin 10.6. INR 4.7. He was given a dose of vitamin K today. Creatinine 4.50. Bicarb 18. He is currently on sodium bicarb tablets. He is seen again today 12/30/2017 in follow-up in the regular medical floor. He is awake and alert in no acute distress. He continues to have no further pulmonary complaints. He is maintaining good O2 saturations in the 90s on room air. No leukocytosis. He is having ongoing issues with renal failure. Current creatinine 4.35. BUN of 100. INR 2.1. The patient is seen again today 12/31/2017 in follow-up on the regular medical floor. He is doing quite well from the pulmonary standpoint. He denies any worsening shortness of breath, cough or congestion. Maintaining good O2 saturations in the 90s on room air. Objective - Vital Signs Vital signs: Vital Signs Temp 98.0 F 12/31/17 10:00 Pulse 88 12/31/17 12:13 Resp 18 12/31/17 10:00 BP 130/69 12/31/17 10:00 Pulse Ox 95 12/31/17 10:00 Intake & Output 12/30/17 12/31/17 12/31/17 18:59 06:59 18:59 Intake Total 1190 Output Total 200 Balance -200 1190 Intake: Oral 1190 Output: Urine 200 Other: Voiding Method Toilet Toilet Toilet Urinal Urinal Urinal # Voids 2 1 - Exam Gen. appearance the patient is calm comfortable likely distress Head exam was generally normal. There was no scleral icterus or corneal arcus. Mucous membranes were moist. Neck was supple and without jugular venous distension, thyromegaly, or carotid bruits. Carotids were easily palpable bilaterally. There was no adenopathy. Lungs sounds are diminished in the left lung base Cardiac exam revealed the PMI to be normally situated and sized. The rhythm was regular and no extrasystoles were noted during several minutes of auscultation. The first and second heart sounds were normal and physiologic splitting of the second heart sound was noted. There were no murmurs, rubs, clicks, or gallops. Abdominal exam revealed normal bowel sounds. The abdomen was soft, non-tender, and without masses, organomegaly, or appreciable enlargement of the abdominal aorta. Extremities the patient has a functional AV fistula in the right upper extremity.Examination of the extremities revealed easily palpable radial, femoral and pedal pulses. There was no cyanosis, clubbing or edema. Neurologically awake and alert there is no deficit Examination of the skin revealed no evidence of significant rashes, suspicious appearing nevi or other concerning lesions. - Labs CBC & Chem 7: 12/31/17 07:55 12/31/17 07:55 Labs: Abnormal Lab Results - Last 24 Hours (Table) 12/30/17 12/30/17 12/31/17 Range/Units 17:22 20:20 07:04 RBC (4.30-5.90) m/uL Hgb (13.0-17.5) gm/dL Hct (39.0-53.0) % MCHC (31.0-37.0) g/dL Neutrophils # (1.3-7.7) k/uL Lymphocytes # (1.0-4.8) k/uL PT (9.0-12.0) sec INR (<1.2) Chloride (98-107) mmol/L Carbon Dioxide (22-30) mmol/L BUN (9-20) mg/dL Creatinine (0.66-1.25) mg/dL Glucose (74-99) mg/dL POC Glucose (mg/dL) 158 H 138 H 142 H (75-99) mg/dL Calcium (8.4-10.2) mg/dL 12/31/17 12/31/17 12/31/17 Range/Units 07:55 07:55 07:55 RBC 3.83 L (4.30-5.90) m/uL Hgb 10.9 L (13.0-17.5) gm/dL Hct 37.3 L (39.0-53.0) % MCHC 29.2 L (31.0-37.0) g/dL Neutrophils # 8.7 H (1.3-7.7) k/uL Lymphocytes # 0.5 L (1.0-4.8) k/uL PT 12.9 H (9.0-12.0) sec INR 1.4 H (<1.2) Chloride 108 H (98-107) mmol/L Carbon Dioxide 19 L (22-30) mmol/L BUN 106 H* (9-20) mg/dL Creatinine 4.27 H (0.66-1.25) mg/dL Glucose 129 H (74-99) mg/dL POC Glucose (mg/dL) (75-99) mg/dL Calcium 8.1 L (8.4-10.2) mg/dL 12/31/17 Range/Units 11:01 RBC (4.30-5.90) m/uL Hgb (13.0-17.5) gm/dL Hct (39.0-53.0) % MCHC (31.0-37.0) g/dL Neutrophils # (1.3-7.7) k/uL Lymphocytes # (1.0-4.8) k/uL PT (9.0-12.0) sec INR (<1.2) Chloride (98-107) mmol/L Carbon Dioxide (22-30) mmol/L BUN (9-20) mg/dL Creatinine (0.66-1.25) mg/dL Glucose (74-99) mg/dL POC Glucose (mg/dL) 143 H (75-99) mg/dL Calcium (8.4-10.2) mg/dL Microbiology - Last 24 Hours (Table) 12/28/17 09:45 Gram Stain - Final Sputum Sputum Culture - Final 12/27/17 14:30 Blood Culture - Preliminary Blood No Growth after 72 hours Assessment and Plan Assessment: Assessment 1 large left-sided pleural effusion postthoracentesis and evacuation of 2.4 L of bloody effusion without any complications. The follow-up CT revealed a small residual left pleural effusion after thoracentesis. There is small areas of groundglass opacity in the left lung reflecting reexpansion alveolar edema. Scattered chronic potential changes bilaterally most likely atelectasis. 2 shortness of breath secondary to above, improved postthoracentesis currently on room air. 3 chronic renal failure not on hemodialysis. Creatinine 4.35. 4 hypertension 5 hyperlipidemia 6 chronic anemia 7 previous history of a right-sided pleural effusion evacuated through a thoracentesis back in 2014 8 chronic atrial fibrillation, anticoagulated with warfarin, supra therapeutic Plan The patient was seen and evaluated by Dr. Gloria. He denies any worsening shortness of breath, cough or congestion. He is cleared for discharge from the pulmonary standpoint. He could follow-up in our office with Dr. Ortiz. He is however encouraged to call sooner with any recurrence of symptoms or other questions or concerns. I, the cosigning physician, performed a history & physical examination of the patient. Lungs sounds faint crackles in left posterior base. Maintaining good O2 saturations in the 90s on room air. I discussed the assessment and plan of care with my nurse practitioner, Charity Diallo. I attest to the above note as dictated by her.
[2017-12-31 14:32] VITALS: BP 124/65; PULSE 93; TEMP 96.9
--- NOTE | 2017-12-31 14:53 | XR ---
EXAMINATION TYPE: XR chest 1V portable DATE OF EXAM: 12/31/2017 HISTORY: Shortness of breath. COMPARISON: 12/29/2017 TECHNIQUE: Single view of the chest is submitted. FINDINGS: Demonstrated are scattered senescent parenchymal change. Increased density left lower lobe may reflect effusion, atelectasis and/or infiltrate. Progress studi es are recommended. The heart is stable. Hilar and mediastinal structures are within normal limits. Degenerative changes are seen of the dorsal spine. IMPRESSION: 1. Increased density left lower lobe may reflect effusion, atelectasis and/or infiltrate. Progress s tudies are recommended.
[2017-12-31 16:52] LABS: Glucose,Whole Blood 150 mg/dL (75-99)
--- NOTE | 2017-12-31 18:32 | DS ---
DISCHARGE SUMMARY FINAL DIAGNOSES: 1. Chronic obstructive pulmonary disease exacerbation with left lower pneumonia possibly left pleural effusion possibly gram-negative. 2. Status post thoracocentesis with 2.4 L fluid with no evidence of malignancy in the cytology. 3. Renal failure stage 5 with chronic kidney disease, FSGS. 4. History of hypertension. 5. Coumadin monitoring. 6. Mild Coumadin coagulopathy, improved. 7. History of cardiomyopathy. 8. History of atrial fibrillation. DISCHARGE DISPOSITION: The patient is being discharged in stable condition with guarded prognosis. HISTORY OF PRESENT ILLNESS: This 82-year-old gentleman with a past medical history of multiple medical problems, being followed by Dr. Ortiz in the outpatient setting admitted with pleural effusion, pneumonia, and multiple other medical problems. The patient also had COPD. Treated symptomatically. Patient improved significantly. Dr. Gloria performed thoracocentesis. CT scan was reviewed. Otherwise the cytology was negative. So a chest x-ray much improved. Dr. Gloria cleared the patient for discharge. On exam, vital signs are stable. Cardio system: S1, S2 muffled. Abdomen is soft. Nontender. NERVOUS SYSTEM: No focal deficits. Chest: A few scattered rhonchi. The creatinine is around 4, which is stable at this time. DISCHARGE ADVICE AND MEDICATIONS: 1. Discharge diet is cardiac diet. 2. Activity limited until followup. 3. Follow up with Dr. Ortiz in 2-3 days. 4. Follow up with Nephrology as advised. MEDICATIONS: 1. Zyloprim 100 mg p.o. q.h.s. 2. Tenormin 12.5 mg q.48h hours. 3. Alphagan eyedrops 1 drop both eyes. 4. Calcitriol 0.5 mg daily. 5. Vitamin D3 2000 q.h.s. 6. Iron sulfate 325 mg q.h.s. 7. Multivitamins one daily. 8. Pravachol 20 mg q.h.s. 9. Requip 4 mg q.h.s. 10.Flomax 0.4 daily. 11.Timoptic 0.05% 1 drop both eyes b.i.d. 12.Coumadin 7.5 mg p.o. Wednesday/ and 5 mg Wednesday, Wednesday, Wednesday, Wednesday, Wednesday. 13.Augmentin 875 mg 1 p.o. b.i.d. for 5 days. 14.Colace 100 mg p.o. 15.Prednisone taper 40 mg daily for 3 days, 30 for 3 days, 20 for3 days, 10 for 3 days. 16.Sodium bicarb 650 mg p.o. q.i.d. Once again, the patient is being discharged in stable condition with guarded prognosis. MMODL / IJN: [id number] /
[2018-01-11] MEDS ORDERED: CALCITRIOL 0.25 MCG CAP PO SCH (09:00)
== END 2017-12-31 17:05 | disposition home or self-care (01) | DRG 178 ==
LOC: EC 13:07 → 5MS5E 17:51 → OBSVTOIN 12-28 13:38 → 5MS5E 12-31 05:24
PROVIDERS: ADMIT Hospitalist; ATTEND Hospitalist
PROC: 0W9B3ZX Drainage of Left Pleural Cavity, Percutaneous Approach, Diagnostic (ICD-10-PCS; principal; 2017-12-28)
DX: J15.6 Pneumonia due to other Gram-negative bacteria (principal); J44.1 Chronic obstructive pulmonary disease with (acute) exacerbation; J44.0 Chronic obstructive pulmonary disease with (acute) lower respiratory infection; E87.2 Acidosis; I12.0 Hypertensive chronic kidney disease with stage 5 chronic kidney disease or end stage renal disease; N18.5 Chronic kidney disease, stage 5; I42.9 Cardiomyopathy, unspecified; J91.8 Pleural effusion in other conditions classified elsewhere; N17.9 Acute kidney failure, unspecified; N04.1 Nephrotic syndrome with focal and segmental glomerular lesions; I48.2 Chronic atrial fibrillation; D63.1 Anemia in chronic kidney disease; N40.0 Benign prostatic hyperplasia without lower urinary tract symptoms; E11.22 Type 2 diabetes mellitus with diabetic chronic kidney disease; J44.9 Chronic obstructive pulmonary disease, unspecified; E78.5 Hyperlipidemia, unspecified; R79.1 Abnormal coagulation profile; E83.9 Disorder of mineral metabolism, unspecified; T45.515A Adverse effect of anticoagulants, initial encounter; Z79.01 Long term (current) use of anticoagulants; Z79.899 Other long term (current) drug therapy; Z87.891 Personal history of nicotine dependence; Z82.49 Family history of ischemic heart disease and other diseases of the circulatory system; Z82.5 Family history of asthma and other chronic lower respiratory diseases
CPT/HCPCS: 36415; 71045; 71046; 71250; 80048; 80053; 80074; 82550; 82553; 83036; 83605; 83615; 83880; 84100; 84157; 84484; 85025; 85610; 87040; 87070; 87205; 88108; 88305; 88341; 88342; 89050; 93005; 94640; 96374; 96375; 99285

== ENCOUNTER → 2018-01-13 | Outpatient (CLI) | payer MEDICARE ==
--- NOTE | 2018-01-13 14:58 | XR ---
EXAMINATION TYPE: XR chest 2V DATE OF EXAM: 01/13/2018 COMPARISON: 12/31/2017 INDICATION: Pleural effusion TECHNIQUE: Frontal and lateral views of the chest are obtained. FINDINGS: The heart size is prominent. The pulmonary vasculature is normal. There is a moderate left pleural effusion. This is increasing from comparison. Minimal right pleural effusion remains stable. IMPRESSION: 1. Increasing moderate size left pleural effusion. 2. Cardiomegaly
== END | disposition home or self-care (01) ==
LOC: RADXRMAIN 14:34
PROVIDERS: ATTEND Internal Medicine
DX: J90 Pleural effusion, not elsewhere classified (principal); I51.7 Cardiomegaly
CPT/HCPCS: 71046

== ENCOUNTER 2018-01-24 10:58 | Inpatient (IN) | payer MEDICARE ==
[2018-01-24] MEDS ORDERED: IPRATROPIUM-ALBUTEROL 3 ML NEB INHALATION STA (11:23)
--- NOTE | 2018-01-24 11:25 | ED ---
General Adult HPI - General Chief complaint: Shortness of Breath Stated complaint: DARA Time Seen by Provider: 01/24/18 11:06 Source: patient, family, RN notes reviewed Mode of arrival: wheelchair Limitations: no limitations - History of Present Illness Initial comments: Patient is a pleasant 82-year-old male presenting to the emergency department with difficulty in breathing. Patient was in the hospital a few weeks ago diagnosed with pneumonia and pleural effusion. Patient did have 2 L of fluid removed from his lungs. Patient also has a history of COPD. Symptoms have progressed over the past couple of weeks. Patient does have occasional mild cough that is nonproductive. No chest pain. No leg pain or leg swelling. No fevers. Patient is having exertional dyspnea and only able to walk around 10 feet or so. - Related Data Home Medications Medication Instructions Recorded Confirmed Brimonidine Tartrate [Alphagan P 1 drop BOTH EYES BID 12/10/14 01/24/18 0.1% Ophth Soln] Timolol 0.5% Ophth Soln [Timoptic 1 drop BOTH EYES DAILY 12/11/14 01/24/18 0.5% Ophth Soln] Allopurinol [Zyloprim] 100 mg PO HS 12/27/17 01/24/18 Atenolol [Tenormin] 12.5 mg PO Q48H 12/27/17 01/24/18 Calcitriol 0.25 mcg PO Q14D 12/27/17 01/24/18 Cholecalciferol (Vitamin D3) 2,000 unit PO HS 12/27/17 01/24/18 [Vitamin D3] Ferrous Sulfate [Iron (65 MG 325 mg PO HS 12/27/17 01/24/18 Elemental)] Multivitamins, Thera [Multivitamin 1 tab PO HS 12/27/17 01/24/18 (formulary)] Warfarin [Coumadin] 2.5 mg PO SUMOWEFR 12/27/17 01/24/18 Warfarin [Coumadin] 5 mg PO TUTHSA 12/27/17 01/24/18 rOPINIRole HCL [Requip] 4 mg PO HS 12/27/17 01/24/18 Furosemide [Lasix] 20 mg PO MOWEFR 01/24/18 01/24/18 Furosemide [Lasix] 40 mg PO SUTUTHSA 01/24/18 01/24/18 Melatonin 10 mg PO HS 01/24/18 01/24/18 Tamsulosin HCl [Flomax] 0.4 mg PO BID 01/24/18 01/24/18 Previous Rx's Medication Instructions Recorded Sodium Bicarbonate Tab 650 mg PO QID #0 tab 12/31/17 Allergies Allergy/AdvReac Type Severity Reaction Status Date / Time No Known Allergies Allergy Verified 01/24/18 11:51 Review of Systems ROS Statement: Those systems with pertinent positive or pertinent negative responses have been documented in the HPI. ROS Other: All systems not noted in ROS Statement are negative. Constitutional: Denies: fever Eyes: Denies: eye pain ENT: Denies: ear pain Respiratory: Reports: cough, dyspnea Cardiovascular: Denies: chest pain Endocrine: Reports: fatigue (Patient is only able to walk around 10 feet.) Gastrointestinal: Denies: abdominal pain Genitourinary: Denies: dysuria Musculoskeletal: Denies: back pain Skin: Denies: rash Neurological: Denies: weakness Past Medical History Past Medical History: Atrial Fibrillation, COPD, Hyperlipidemia, Hypertension, Renal Disease Additional Past Medical History / Comment(s): . History of Any Multi-Drug Resistant Organisms: None Reported Past Surgical History: Hernia Repair Additional Past Surgical History / Comment(s): Mastoid surgery X3 Past Anesthesia/Blood Transfusion Reactions: No Reported Reaction Past Psychological History: No Psychological Hx Reported Smoking Status: Former smoker Past Alcohol Use History: Occasional Past Drug Use History: None Reported - Past Family History Father Family Medical History: Asthma Mother Family Medical History: Hypertension General Exam Limitations: no limitations General appearance: alert, in no apparent distress Head exam: Present: atraumatic Eye exam: Present: normal appearance, PERRL ENT exam: Present: normal oropharynx Neck exam: Present: normal inspection Respiratory exam: Present: wheezes, rales, decreased breath sounds Cardiovascular Exam: Present: regular rate, irregular rhythm GI/Abdominal exam: Present: soft. Absent: tenderness Extremities exam: Present: normal inspection. Absent: pedal edema, calf tenderness Neurological exam: Present: alert Psychiatric exam: Present: normal affect, normal mood Skin exam: Present: normal color Course Vital Signs 01/24/18 01/24/18 01/24/18 11:00 11:33 11:43 Temperature 97.6 F Pulse Rate 88 90 97 Respiratory 20 Rate Blood Pressure 94/59 O2 Sat by Pulse 98 Oximetry 01/24/18 01/24/18 01/24/18 12:04 13:13 13:54 Temperature Pulse Rate 96 93 81 Respiratory 16 16 16 Rate Blood Pressure 110/65 118/73 120/61 O2 Sat by Pulse 99 99 96 Oximetry EKG Findings - EKG Comments: EKG Findings:: A. fib with rate of 88. QRS 78. QT 386. QTc 467. Normal axis. Low QRS voltage. No acute ST change. Medical Decision Making - Medical Decision Making Patient reevaluated. Patient and family updated. Case was discussed with Dr. Delarosa, covering for Dr. More's group who has previously admitted this patient. Dr. Ortiz will be placed on consult. - Lab Data Result diagrams: 01/24/18 11:30 01/24/18 11:30 Lab Results 01/24/18 01/24/18 01/24/18 Range/Units 11:30 11:30 11:30 WBC 3.7 L (3.8-10.6) k/uL RBC 3.77 L (4.30-5.90) m/uL Hgb 11.1 L (13.0-17.5) gm/dL Hct 36.4 L (39.0-53.0) % MCV 96.5 (80.0-100.0) fL MCH 29.4 (25.0-35.0) pg MCHC 30.5 L (31.0-37.0) g/dL RDW 15.7 H (11.5-15.5) % Plt Count 141 L (150-450) k/uL Neutrophils % 63 % Lymphocytes % 16 % Monocytes % 9 % Eosinophils % 8 % Basophils % 0 % Neutrophils # 2.3 (1.3-7.7) k/uL Lymphocytes # 0.6 L (1.0-4.8) k/uL Monocytes # 0.3 (0-1.0) k/uL Eosinophils # 0.3 (0-0.7) k/uL Basophils # 0.0 (0-0.2) k/uL Hypochromasia Moderate PT (9.0-12.0) sec INR (<1.2) APTT (22.0-30.0) sec Sodium 141 (137-145) mmol/L Potassium 4.1 (3.5-5.1) mmol/L Chloride 105 (98-107) mmol/L Carbon Dioxide 25 (22-30) mmol/L Anion Gap 11 mmol/L BUN 80 H (9-20) mg/dL Creatinine 4.24 H (0.66-1.25) mg/dL Est GFR (CKD-EPI)AfAm 14 (>60 ml/min/1.73 sqM) Est GFR (CKD-EPI)NonAf 12 (>60 ml/min/1.73 sqM) Glucose 101 H (74-99) mg/dL Calcium 8.5 (8.4-10.2) mg/dL Total Bilirubin 0.5 (0.2-1.3) mg/dL AST 16 L (17-59) U/L ALT 25 (21-72) U/L Alkaline Phosphatase 131 H (38-126) U/L Total Creatine Kinase 28 L (55-170) U/L CK-MB (CK-2) 1.6 (0.0-2.4) ng/mL CK-MB (CK-2) Rel Index 5.7 Troponin I 0.041 H* (0.000-0.034) ng/mL NT-Pro-B Natriuret Pep pg/mL Total Protein 5.5 L (6.3-8.2) g/dL Albumin 2.9 L (3.5-5.0) g/dL 01/24/18 01/24/18 Range/Units 11:30 11:30 WBC (3.8-10.6) k/uL RBC (4.30-5.90) m/uL Hgb (13.0-17.5) gm/dL Hct (39.0-53.0) % MCV (80.0-100.0) fL MCH (25.0-35.0) pg MCHC (31.0-37.0) g/dL RDW (11.5-15.5) % Plt Count (150-450) k/uL Neutrophils % % Lymphocytes % % Monocytes % % Eosinophils % % Basophils % % Neutrophils # (1.3-7.7) k/uL Lymphocytes # (1.0-4.8) k/uL Monocytes # (0-1.0) k/uL Eosinophils # (0-0.7) k/uL Basophils # (0-0.2) k/uL Hypochromasia PT 22.3 H (9.0-12.0) sec INR 2.5 H (<1.2) APTT 45.0 H (22.0-30.0) sec Sodium (137-145) mmol/L Potassium (3.5-5.1) mmol/L Chloride (98-107) mmol/L Carbon Dioxide (22-30) mmol/L Anion Gap mmol/L BUN (9-20) mg/dL Creatinine (0.66-1.25) mg/dL Est GFR (CKD-EPI)AfAm (>60 ml/min/1.73 sqM) Est GFR (CKD-EPI)NonAf (>60 ml/min/1.73 sqM) Glucose (74-99) mg/dL Calcium (8.4-10.2) mg/dL Total Bilirubin (0.2-1.3) mg/dL AST (17-59) U/L ALT (21-72) U/L Alkaline Phosphatase (38-126) U/L Total Creatine Kinase (55-170) U/L CK-MB (CK-2) (0.0-2.4) ng/mL CK-MB (CK-2) Rel Index Troponin I (0.000-0.034) ng/mL NT-Pro-B Natriuret Pep 22846 pg/mL Total Protein (6.3-8.2) g/dL Albumin (3.5-5.0) g/dL - Radiology Data Radiology results: image reviewed (Chest x-ray shows moderate left-sided effusion.) Disposition Clinical Impression: Pleural effusion, Dyspnea Disposition: ADMITTED IP TO THIS HOSP Is patient prescribed a controlled substance at d/c from ED?: No Referrals: Vaibhav Ortiz MD [Primary Care Provider] - 1-2 days Decision Time: 14:10
[2018-01-24 11:41] LABS: Basophils % (A) 0 %; Eosinophils # (A) 0.3 k/uL (0-0.7); Eosinophils % (A) 8 %; HCT 36.4 % (39.0-53.0); HGB 11.1 gm/dL (13.0-17.5); Hypochromasia Moderate; Lymphocytes # (A) 0.6 k/uL (1.0-4.8); Lymphocytes % (A) 16 %; MCH 29.4 pg (25.0-35.0); MCHC 30.5 g/dL (31.0-37.0); MCV 96.5 fL (80.0-100.0); Mean Platelet Volume 8.6; Monocytes # (A) 0.3 k/uL (0-1.0); Monocytes % (A) 9 %; Neutrophils # (A) 2.3 k/uL (1.3-7.7); Neutrophils % (A) 63 %; Platelet Count 141 k/uL (150-450); RBC 3.77 m/uL (4.30-5.90); RDW 15.7 % (11.5-15.5); WBC 3.7 k/uL (3.8-10.6)
[2018-01-24 11:51] LABS: Albumin 2.9 g/dL (3.5-5.0); Calcium 8.5 mg/dL (8.4-10.2); Potassium 4.1 mmol/L (3.5-5.1); Total Bilirubin 0.5 mg/dL (0.2-1.3); Total Protein 5.5 g/dL (6.3-8.2)
[2018-01-24 12:19] LABS: Creatine Kinase MB 1.6 ng/mL (0.0-2.4)
[2018-01-24 12:31] LABS: Troponin I 0.041 ng/mL (0.000-0.034)
[2018-01-24 12:35] LABS: INR 2.5 (<1.2); Prothrombin Time 22.3 sec (9.0-12.0)
--- NOTE | 2018-01-24 12:36 | XR ---
EXAMINATION TYPE: XR chest 2V DATE OF EXAM: 01/24/2018 COMPARISON: 01/13/2018 HISTORY: 82 year-old male shortness of breath, difficulty breathing, recent thoracentesis. TECHNIQUE: Frontal and lateral views FINDINGS: Heart mildly enlarged. Aortic descent is obscured by moderate-sized left pleural effusion with adjace nt opacity. Mild interstitial prominence as a chronic appearance. Trace right effusion may also be pr esent. IMPRESSION: 1. Mild cardiomegaly. 2. Continued moderate left pleural effusion with adjacent atelectasis and/or consolidation. 3. Trace right effusion.
[2018-01-24] MEDS ORDERED: FUROSEMIDE 10 MG/ML 4 ML VIAL IV SCH (14:15)
[2018-01-24] MEDS: FUROSEMIDE 10 MG/ML 4 ML VIAL IV SCH (18:23)
[2018-01-24] MEDS ORDERED: IPRATROPIUM-ALBUTEROL 3 ML NEB INHALATION PRN (18:42)
[2018-01-24] MEDS ORDERED: ACETAMINOPHEN TAB 500 MG TAB PO PRN (18:43)
[2018-01-24] MEDS ORDERED: ALPRAZolam 0.25 MG TAB PO PRN (18:43)
[2018-01-24] MEDS ORDERED: MELATONIN 3 MG TABLET PO PRN (18:43)
[2018-01-24] MEDS ORDERED: HYDROcodone/APAP 5-325MG 1 EACH TAB PO PRN (18:43)
[2018-01-24] MEDS: BRIMONIDINE TARTRATE 0.2% DROPS 5 ML BTL BOTH EYES SCH (20:41)
[2018-01-24] MEDS: MULTIVITAMINS, THERA 1 EACH TAB PO SCH (20:42)
[2018-01-24] MEDS: rOPINIRole HCL 4 MG TABLET PO SCH (20:42)
[2018-01-24] MEDS: TAMSULOSIN 0.4 MG CAP.ER.24H PO SCH (20:42)
[2018-01-24] MEDS: FERROUS SULFATE 325 MG TAB PO SCH (20:42)
[2018-01-24] MEDS: ALLOPURINOL 100 MG TAB PO SCH (20:42)
[2018-01-24] MEDS: SODIUM BICARBONATE TAB 650 MG TAB PO SCH (20:43)
[2018-01-24] MEDS: HEPARIN SODIUM,PORCINE 5,000 UNIT/ML 1 ML VIAL SQ SCH (20:43)
[2018-01-24] MEDS: MELATONIN 5 MG TABLET PO SCH (20:43)
[2018-01-24] MEDS: CHOLECALCIFEROL 1,000 UNIT TAB PO SCH (20:43)
[2018-01-24] MEDS: FORMOTEROL FUMARATE 20 MCG/2 ML NEBU INHALATION SCH (21:35)
[2018-01-24] MEDS: IPRATROPIUM-ALBUTEROL 3 ML NEB INHALATION SCH (21:36)
[2018-01-24] MEDS: BUDESONIDE 1 MG/2 ML NEBU INHALATION SCH (21:36)
--- NOTE | 2018-01-24 22:12 | HP ---
HISTORY AND PHYSICAL DATE OF SERVICE: 01/24/2018 CHIEF COMPLAINT: Shortness of breath. HISTORY OF PRESENT ILLNESS: This 82-year-old gentleman with a past medical history of multiple medical problems, including atrial ablation, COPD, history of hypertension, hyperlipidemia, history of renal disorder, being followed by Dr. Ortiz in the outpatient setting, was not feeling well for the past 2 weeks at least. The patient was previously admitted to [facility] last month with COPD, acute exacerbation, as well as left lower lobe pneumonia, left pleural effusion. The patient also underwent thoracocentesis for about 2.4 L. The patient also had stage IV renal failure with FSGS as well. Because of the increasing difficulties, the patient came to [facility] and was admitted for further evaluation and treatment. A chest x-ray was done in the ER which showed mild cardiomegaly and continued moderate left pleural effusion with adjacent atelectasis and consolidation; a trace of right pleural effusion was also noted. A chest CT was done during the previous admission which showed residual pleural effusion and some ground- glass opacities; no other acute abnormalities were noted. The patient's creatinine was found to be 4.24 at this time. His baseline creatinine fluctuates between 3 and 4. WBC 3.6, hemoglobin 11.1. INR is 2.5 and troponin was found to be 0.041. The patient was admitted for further evaluation and treatment. The patient also noticed some abdominal distention and leg swelling. There is no history of any fever, rigor or chills, no history of headache, loss of consciousness, seizures. PAST MEDICAL HISTORY: 1. History of atrial ablation. 2. COPD. 3. Hypertension. 4. Hyperlipidemia. 5. Renal disease. 6. FSGS. 7. Hernia repair. 8. Mastoid surgery x3. HOME MEDICATIONS: 1. Requip 4 mg p.o. at bedtime. 2. Coumadin 5 mg Wednesday, and Wednesday; 2.5 mg Wednesday, Wednesday, Wednesday, Wednesday. 3. Timolol 0.5% daily. 4. Flomax 0.4 daily. 5. Sodium bicarb 650 p.o. q.i.d. 6. Multivitamins 1 p.o. daily. 7. Melatonin 10 mg at bedtime. 8. Lasix 20 mg Wednesday, Wednesday, Wednesday and 40 mg Wednesday, Wednesday, , Wednesday. 9. Vitamin D3 2000 at bedtime. 10.Calcitriol 0.25 mg p.o. q.14 days. 11.Alphagan 1 drop both b.i.d. 12.Tenormin 12.5 mg q.48 hours. 13.Zyloprim 100 mg p.o. at bedtime. 14.Iron sulfate 325 mg at bedtime. ALLERGIES: NONE. FAMILY HISTORY: History of asthma in the family. SOCIAL HISTORY: Previous history of smoking. No history of alcohol intake. REVIEW OF SYSTEMS: ENT: No diminished hearing. No diminished vision. CARDIOVASCULAR SYSTEM: As mentioned earlier. RESPIRATORY SYSTEM: As mentioned earlier. GI: No nausea, vomiting. : No dysuria or retention. NERVOUS SYSTEM: No numbness, weakness. ALLERGY/IMMUNOLOGY: No asthma, hayfever. MUSCULOSKELETAL: As mentioned earlier. HEMATOLOGY/ONCOLOGY: No history of anemia. ENDOCRINE: No history of diabetes, hypothyroidism. CONSTITUTIONAL: As mentioned earlier. DERMATOLOGY: Negative. RHEUMATOLOGY: Negative. PSYCHIATRY: As mentioned earlier. PHYSICAL EXAMINATION: Patient is alert and oriented x3. Pulse is 94, blood pressure 98/54, respiration 19, temperature 96.9, pulse ox 96% on room air. HEENT: Conjunctivae normal. Oral mucosa moist. NECK: Jugular venous distention in the root of the neck. CARDIOVASCULAR SYSTEM: S1, S2 muffled. No S3. No S4. RESPIRATORY SYSTEM: Breath sounds diminished at the bases. Bilateral scattered rhonchi and crackles. Breath sounds diminished in the bases. ABDOMEN: Soft, obese, non-tender. No mass palpable. LEGS: Bilateral leg edema, right more than the left. NERVOUS SYSTEM: Higher functions as mentioned earlier. Moves all 4 limbs. No focal motor or sensory deficit. LYMPHATICS: No lymph node palpable in neck, axillae or groin. SKIN: No ulcer, rash, bleeding. JOINTS: No active deforming arthropathy. LABS: WBC 3.6, hemoglobin 11.1, platelets 141. INR 2.5. Creatinine is 4.24 and albumin is 2.9. ASSESSMENT: 1. Shortness of breath, possibly multifactorial. 2. Possible congestive heart failure, acute exacerbation, with acute on chronic systolic dysfunction; previous ejection fraction 40% to 45%. 3. Chronic obstructive pulmonary disease, acute exacerbation. 4. Reaccumulating left pleural effusion. 5. Renal failure, stage V, with chronic kidney disease, focal segmental glomerulosclerosis. 6. Coumadin monitoring. 7. Atrial fibrillation. 8. Chronic obstructive pulmonary disease. 9. Hypertension. 10.Hyperlipidemia. 11.History of hernia repair. 12.History mastoid surgery. 13.Remote history of nicotine dependence. RECOMMENDATIONS AND DISCUSSION: In this 82-year-old gentleman who presented with multiple complex medical issues, we will monitor the patient closely, continue the current medications, continue with symptomatic treatment. Will treat the patient with intensive bronchodilators, and empiric antibiotics were initiated. Dr. Ortiz will be consulted for consideration of possible left thoracocentesis. The exact etiology of the pleural effusion is unknown at this time. Cytology from the previous aspirate showed mesothelial cells and macrophages and mixed inflammatory cells. No malignancy was identified. I would also recommend a 2D echo with Doppler and also cardiology evaluation for evaluation of any associated CHF. Nephrology will be consulted for continuing followup for the chronic kidney disease. Ultrasound of the chest also will be ordered prior to pleural tap. The Coumadin will be held and PT/INR will be checked on a daily basis. The overall prognosis is guarded because of multiple complex medical issues. Further recommendations to follow. A copy of this is being forwarded to Dr. Ortiz, who is the primary physician. Please see orders for further details. MMODL / IJN: [id number] /
--- NOTE | 2018-01-24 23:31 | US ---
EXAMINATION TYPE: US chest DATE OF EXAM: 01/24/2018 COMPARISON: NONE CLINICAL HISTORY: Markings for thoracentesis by pulmonary staff. Pleural effusion. TECHNIQUE: Targeted ultrasound of the posterior lower bilateral hemithoraces EXAM MEASUREMENTS: Left Pleural Effusion pocket size: 5.6 cm Left skin surface to fluid distance: 2.5 cm . Left side marked for possible thoracentesis outside the dept. Pulmonologists are able to review the images in the patient?s EMR. Marked left side for possible thoracentesis. IMPRESSIONS: There is a moderate-sized left pleural effusion.
[2018-01-25] MEDS: FUROSEMIDE 10 MG/ML 4 ML VIAL IV SCH (06:29)
[2018-01-25] MEDS: PANTOPRAZOLE 40 MG TABLET PO SCH (06:29)
[2018-01-25 06:30] LABS: Basophils % (A) 0 %; Eosinophils # (A) 0.3 k/uL (0-0.7); Eosinophils % (A) 7 %; HCT 33.4 % (39.0-53.0); HGB 10.4 gm/dL (13.0-17.5); Hypochromasia Moderate; Lymphocytes # (A) 0.6 k/uL (1.0-4.8); Lymphocytes % (A) 17 %; MCH 29.7 pg (25.0-35.0); MCHC 31.1 g/dL (31.0-37.0); MCV 95.4 fL (80.0-100.0); Monocytes # (A) 0.3 k/uL (0-1.0); Monocytes % (A) 8 %; Neutrophils # (A) 2.4 k/uL (1.3-7.7); Neutrophils % (A) 64 %; Platelet Count 135 k/uL (150-450); RDW 15.6 % (11.5-15.5); WBC 3.7 k/uL (3.8-10.6)
[2018-01-25 06:34] LABS: INR 2.5 (<1.2); Prothrombin Time 22.6 sec (9.0-12.0)
[2018-01-25 06:59] LABS: Calcium 8.5 mg/dL (8.4-10.2); Potassium 4.4 mmol/L (3.5-5.1)
[2018-01-25] MEDS: IPRATROPIUM-ALBUTEROL 3 ML NEB INHALATION SCH ×4 (07:48→19:22)
[2018-01-25] MEDS: BUDESONIDE 1 MG/2 ML NEBU INHALATION SCH ×2 (07:48→19:22)
[2018-01-25] MEDS: FORMOTEROL FUMARATE 20 MCG/2 ML NEBU INHALATION SCH ×2 (07:48→19:22)
[2018-01-25] MEDS ORDERED: ATENOLOL 25 MG TAB PO SCH (09:00)
--- NOTE | 2018-01-25 09:51 | P.NPCON ---
History of Present Illness - Reason for Consult chronic renal failure - History of Present Illness Reason for consultation: Chronic kidney disease History of present illness: Patient is a 82-year-old male seen in renal consultation for chronic kidney disease. Patient has chronic kidney disease stage V with recent creatinine in the range of 4.2-4.5. 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 Patient has a right upper extremity AV fistula which she states was created in September 2017. It has a good thrill. Patient was recently admitted to the hospital a few weeks ago with pneumonia. At that time he was noted to have a parapneumonic effusion and underwent thoracentesis with 2 L drained. Patient was initially discharged home and again developed worsening shortness of breath over the last few days. Chest x- ray revealed moderate left-sided pleural effusion along with trace right effusion. He does admit to dyspnea. Appetite is poor. No edema in the lower extremity is. Denies chest pain. Does feel weak. Temperature was 99.1F this morning. Blood pressure controlled. No vomiting or diarrhea. Denies significant cough. Vital signs are stable. General: The patient appeared well nourished and normally developed. HEENT: Head exam is unremarkable. Neck is without jugular venous distension. LUNGS: Lungs are clear to auscultation and percussion. Breath sounds decreased. HEART: Rate and Rhythm are regular. First and second heart sounds normal. No murmurs, rubs or gallops. ABDOMEN: Abdominal exam reveals normal bowel sounds. Non-tender and non- distended. No evidence of peritonitis. EXTREMITITES: No clubbing, cyanosis, or edema. Past Medical History Past Medical History: Atrial Fibrillation, COPD, Hyperlipidemia, Hypertension, Renal Disease Additional Past Medical History / Comment(s): . History of Any Multi-Drug Resistant Organisms: None Reported Past Surgical History: Hernia Repair Additional Past Surgical History / Comment(s): Mastoid surgery X3 Past Anesthesia/Blood Transfusion Reactions: No Reported Reaction Past Psychological History: No Psychological Hx Reported Smoking Status: Former smoker Past Alcohol Use History: Occasional Past Drug Use History: None Reported - Past Family History Father Family Medical History: Asthma Mother Family Medical History: Hypertension Medications and Allergies Home Medications Medication Instructions Recorded Confirmed Type Brimonidine Tartrate [Alphagan P 1 drop BOTH EYES BID 12/10/14 01/24/18 History 0.1% Ophth Soln] Timolol 0.5% Ophth Soln [Timoptic 1 drop BOTH EYES DAILY 12/11/14 01/24/18 History 0.5% Ophth Soln] Allopurinol [Zyloprim] 100 mg PO HS 12/27/17 01/24/18 History Atenolol [Tenormin] 12.5 mg PO Q48H 12/27/17 01/24/18 History Calcitriol 0.25 mcg PO Q14D 12/27/17 01/24/18 History Cholecalciferol (Vitamin D3) 2,000 unit PO HS 12/27/17 01/24/18 History [Vitamin D3] Ferrous Sulfate [Iron (65 MG 325 mg PO HS 12/27/17 01/24/18 History Elemental)] Multivitamins, Thera [Multivitamin 1 tab PO HS 12/27/17 01/24/18 History (formulary)] Warfarin [Coumadin] 2.5 mg PO SUMOWEFR 12/27/17 01/24/18 History Warfarin [Coumadin] 5 mg PO TUTHSA 12/27/17 01/24/18 History rOPINIRole HCL [Requip] 4 mg PO HS 12/27/17 01/24/18 History Sodium Bicarbonate Tab 650 mg PO QID #0 tab 12/31/17 01/24/18 Rx Furosemide [Lasix] 20 mg PO MOWEFR 01/24/18 01/24/18 History Furosemide [Lasix] 40 mg PO SUTUTHSA 01/24/18 01/24/18 History Melatonin 10 mg PO HS 01/24/18 01/24/18 History Tamsulosin HCl [Flomax] 0.4 mg PO BID 01/24/18 01/24/18 History Allergies Allergy/AdvReac Type Severity Reaction Status Date / Time No Known Allergies Allergy Verified 01/24/18 11:51 Physical Exam Vitals: Vital Signs Temp Pulse Pulse Resp BP BP Pulse Ox 01/25/18 09:29 99.1 F 121 H 24 98/55 97 01/25/18 08:11 102 H 01/25/18 08:00 97.4 F L 114 H 16 93/55 95 01/25/18 07:58 100 01/25/18 07:48 98 97 01/25/18 04:00 97.5 F L 112 H 20 118/55 09/18/18 00:00 107 H 18 107/69 96 01/24/18 21:58 100 01/24/18 21:44 100 01/24/18 21:33 100 01/24/18 19:54 96.7 F L 94 19 98/54 96 01/24/18 16:00 97.4 F L 100 16 104/65 98 01/24/18 15:39 97.5 F L 83 16 107/60 100 01/24/18 13:54 81 16 120/61 96 01/24/18 13:13 93 16 118/73 99 01/24/18 12:04 96 16 110/65 99 01/24/18 11:43 97 01/24/18 11:33 90 01/24/18 11:00 97.6 F 88 20 94/59 98 Intake and Output 01/24/18 01/25/18 01/25/18 22:59 06:59 14:59 Intake Total 240 240 Output Total 350 350 Balance -110 -350 240 Intake: Oral 240 240 Output: Urine 350 350 Other: Voiding Method Toilet Toilet # Voids 1 Weight 82.9 kg Results - Lab Results Most recent lab results Calcium 8.5 mg/dL (8.4-10.2) 01/25/18 05:57 01/25/18 05:57 01/25/18 05:57 Assessment and Plan Plan: Assessment: 1. 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 Patient has a matured right upper extremity AV fistula. 2. Moderate left-sided pleural effusion. 3. Anemia of chronic kidney disease. Hemoglobin at goal. 4. Chronic kidney disease mineral bone disease maintained on calcitriol. 5. Metabolic acidosis maintained on oral sodium bicarbonate. 6. Dyspnea secondary to volume overload. Plan: I will increase Lasix to 80 mg IV twice daily. Follow-up echocardiogram. Potential thoracentesis by pulmonology. Check phosphorus level. Patient is starting to develop symptoms of uremia including fatigue and poor appetite. Additionally he is hypervolemic. I will start hemodialysis today once vascular surgery clears to use of his right upper extremity AV fistula. Thank you for the consultation. I will continue to follow the patient with you during his hospital stay.
--- NOTE | 2018-01-25 10:01 | ECHOF ---
Referral Reason:chf MEASUREMENTS -------- HEIGHT: 170.2 cm WEIGHT: 82.6 kg BP: 118/55 RVIDd: 3.1 cm (< 3.3) IVSd: 1.5 cm (0.6 - 1.1) LVIDd: 4.5 cm (3.9 - 5.3) LVPWd: 1.4 cm (0.6 - 1.1) IVSs: 2.0 cm LVIDs: 3.5 cm LVPWs: 1.7 cm LA Diam: 3.8 cm (2.7 - 3.8) LAESV Index (A-L): 22.23 ml/m Ao Diam: 4.0 cm (2.0 - 3.7) AV Cusp: 2.4 cm (1.5 - 2.6) MV EXCURSION: 18.048 mm (> 18.000) MV EF SLOPE: 121 mm/s (70 - 150) EPSS: 0.6 cm RAP: 5.00 mmHg RVSP: 27.35 mmHg FINDINGS -------- Atrial fibrillation. This was a technically difficult study with suboptimal views. The left ventricular size is normal. There is moderate concentric left ventricular hypertrophy. O verall left ventricular systolic function is mildly impaired with, an EF between 45 - 50 %. The right ventricle is normal in size. Normal LA size by volume 22+/-6 ml/m2. The right atrium is normal in size. 3 ml of Lumason was utilized for enhancement of images. There is mild aortic valve sclerosis. Mild mitral annular calcification present. Mild mitral regurgitation is present. Mild tricuspid regurgitation present. Right ventricular systolic pressure is normal at < 35 mmHg. The pulmonic valve was not well visualized. The aortic root is dilated measuring 4.0cm. Normal inferior vena cava with normal inspiratory collapse consistent with estimated right atrial pre ssure of 5 mmHg. There is no pericardial effusion. CONCLUSIONS -------- 1. Atrial fibrillation. 2. This was a technically difficult study with suboptimal views. 3. The left ventricular size is normal. 4. There is moderate concentric left ventricular hypertrophy. 5. Overall left ventricular systolic function is mildly impaired with, an EF between 45 - 50 %. 6. The right ventricle is normal in size. 7. Normal LA size by volume 22+/-6 ml/m2. 8. The right atrium is normal in size. 9. 3 ml of Lumason was utilized for enhancement of images. 10. There is mild aortic valve sclerosis. 11. Mild mitral annular calcification present. 12. Mild mitral regurgitation is present. 13. Mild tricuspid regurgitation present. 14. Right ventricular systolic pressure is normal at < 35 mmHg. 15. The pulmonic valve was not well visualized. 16. The aortic root is dilated measuring 4.0cm. 17. Normal inferior vena cava with normal inspiratory collapse consistent with estimated right atrial pressure of 5 mmHg. 18. There is no pericardial effusion. [employer] SALESPERSON: Pilar Adames RDCS
[2018-01-25] MEDS ORDERED: FUROSEMIDE 10 MG/ML 4 ML VIAL ONE (10:12)
[2018-01-25] MEDS: SODIUM BICARBONATE TAB 650 MG TAB PO SCH ×3 (10:34→19:03)
[2018-01-25] MEDS: TAMSULOSIN 0.4 MG CAP.ER.24H PO SCH ×2 (10:34→20:37)
[2018-01-25] MEDS: HEPARIN SODIUM,PORCINE 5,000 UNIT/ML 1 ML VIAL SQ SCH ×2 (10:35→20:36)
[2018-01-25] MEDS: TIMOLOL 0.5% OPHTH DROPS 5 ML BTL BOTH EYES SCH ×3 (10:36→20:37)
[2018-01-25] MEDS: BRIMONIDINE TARTRATE 0.2% DROPS 5 ML BTL BOTH EYES SCH ×2 (10:36→20:35)
--- NOTE | 2018-01-25 11:21 | P.CNPUL ---
History of Present Illness Consult date: 01/25/18 Requesting physician: Chay Delarosa Reason for consult: dyspnea, abnormal CXR/CT Chief complaint: Shortness of breath History of present illness: This is a very pleasant 82-year-old gentleman who follows with Dr. Ortiz as his primary care physician. He has a history of chronic renal failure not currently on dialysis him a atrial fibrillation anticoagulant with warfarin, chronic obstructive pulmonary disease, hyperlipidemia, hypertension. He also has a history of recurrent pleural effusions. In 2014 he had a right-sided pleural effusion status post thoracentesis. He also more recently had a left- sided thoracentesis with 2.4 L of bloody effusion removed. The pathology was negative for malignancy. A follow-up computed tomography scan of the chest at that time had revealed small residual left pleural effusion. There is a small area of groundglass opacity in the left lung. Suspected focus of reexpansion alveolar edema. No other abnormalities were noted. No masses or nodules. Total protein 2.8, LDH 251. Today's echocardiogram revealed moderate concentric left ventricular hypertrophy with only mildly impaired left ventricular systolic function with ejection fraction 45-50%. No significant valvular disease. No pulmonary hypertension. The patient is seen today in consultation on the selective care unit. He is awake and alert in no acute distress. He is quite dyspneic on minimal exertion. He is also fatigued and weak. He is maintaining O2 saturations in the mid 90s on 2 L/m per nasal cannula. Current temperature 99.1. Slightly tachycardic remains in atrial fibrillation. White count 3.7. Hemoglobin 10.4. Platelet count 135. Troponin 0.041. ProBNP 17,400. He does have a mature right upper extremity AV fistula placed back in September 2017. BUN 85, creatinine 4.21. INR 2.5. Review of Systems Constitutional: Reports fatigue, Reports lethargy, Reports poor appetite, Reports weakness Eyes: denies blurred vision, denies decreased vision Ears: deny: decreased hearing Ears, nose, mouth and throat: Denies headache, Denies sore throat Cardiovascular: Reports decreased exercise tolerance, Reports dyspnea on exertion, Reports irregular heart beat, Reports leg edema, Reports rapid heart beat, Reports shortness of breath Respiratory: Reports dyspnea, Reports wheezing Gastrointestinal: Reports bloating, Reports loss of appetite Genitourinary: Reports dysuria, Reports urinary hesitancy Musculoskeletal: Reports limitation of motion Integumentary: Reports color changes Neurological: Reports weakness Psychiatric: Reports anxiety Endocrine: Denies fatigue, Denies weight change Hematologic/Lymphatic: Reports as per HPI Allergic/Immunologic: Reports as per HPI Past Medical History Past Medical History: Atrial Fibrillation, COPD, Hyperlipidemia, Hypertension, Renal Disease Additional Past Medical History / Comment(s): . History of Any Multi-Drug Resistant Organisms: None Reported Past Surgical History: Hernia Repair Additional Past Surgical History / Comment(s): Mastoid surgery X3 Past Anesthesia/Blood Transfusion Reactions: No Reported Reaction Past Psychological History: No Psychological Hx Reported Smoking Status: Former smoker Past Alcohol Use History: Occasional Past Drug Use History: None Reported - Past Family History Father Family Medical History: Asthma Mother Family Medical History: Hypertension Medications and Allergies Home Medications Medication Instructions Recorded Confirmed Type Brimonidine Tartrate [Alphagan P 1 drop BOTH EYES BID 12/10/14 01/24/18 History 0.1% Ophth Soln] Timolol 0.5% Ophth Soln [Timoptic 1 drop BOTH EYES DAILY 12/11/14 01/24/18 History 0.5% Ophth Soln] Allopurinol [Zyloprim] 100 mg PO HS 12/27/17 01/24/18 History Atenolol [Tenormin] 12.5 mg PO Q48H 12/27/17 01/24/18 History Calcitriol 0.25 mcg PO Q14D 12/27/17 01/24/18 History Cholecalciferol (Vitamin D3) 2,000 unit PO HS 12/27/17 01/24/18 History [Vitamin D3] Ferrous Sulfate [Iron (65 MG 325 mg PO HS 12/27/17 01/24/18 History Elemental)] Multivitamins, Thera [Multivitamin 1 tab PO HS 12/27/17 01/24/18 History (formulary)] Warfarin [Coumadin] 2.5 mg PO SUMOWEFR 12/27/17 01/24/18 History Warfarin [Coumadin] 5 mg PO TUTHSA 12/27/17 01/24/18 History rOPINIRole HCL [Requip] 4 mg PO HS 12/27/17 01/24/18 History Sodium Bicarbonate Tab 650 mg PO QID #0 tab 12/31/17 01/24/18 Rx Furosemide [Lasix] 20 mg PO MOWEFR 01/24/18 01/24/18 History Furosemide [Lasix] 40 mg PO SUTUTHSA 01/24/18 01/24/18 History Melatonin 10 mg PO HS 01/24/18 01/24/18 History Tamsulosin HCl [Flomax] 0.4 mg PO BID 01/24/18 01/24/18 History Allergies Allergy/AdvReac Type Severity Reaction Status Date / Time No Known Allergies Allergy Verified 01/24/18 11:51 Physical Exam Vitals: Vital Signs Temp Pulse Pulse Resp BP BP Pulse Ox 01/25/18 09:29 99.1 F 121 H 24 98/55 97 01/25/18 08:11 102 H 01/25/18 08:00 97.4 F L 114 H 16 93/55 95 01/25/18 07:58 100 01/25/18 07:48 98 97 01/25/18 04:00 97.5 F L 112 H 20 118/55 01/25/18 00:00 107 H 18 107/69 96 01/24/18 21:58 100 01/24/18 21:44 100 01/24/18 21:33 100 01/24/18 19:54 96.7 F L 94 19 98/54 96 01/24/18 16:00 97.4 F L 100 16 104/65 98 01/24/18 15:39 97.5 F L 83 16 107/60 100 01/24/18 13:54 81 16 120/61 96 01/24/18 13:13 93 16 118/73 99 01/24/18 12:04 96 16 110/65 99 01/24/18 11:43 97 01/24/18 11:33 90 01/24/18 11:00 97.6 F 88 20 94/59 98 Intake and Output 01/24/18 01/25/18 01/25/18 22:59 06:59 14:59 Intake Total 240 240 Output Total 350 350 Balance -110 -350 240 Intake: Oral 240 240 Output: Urine 350 350 Other: Voiding Method Toilet Toilet # Voids 1 Weight 82.9 kg - Constitutional General appearance: average body habitus, disheveled, mild distress - EENT Eyes: EOMI, PERRLA ENT: hearing grossly normal Ears: bilateral: normal - Neck Neck: normal ROM Carotids: bilateral: upstroke normal Thyroid: bilateral: normal size - Respiratory Respiratory: left: diminished, rales - Cardiovascular Rhythm: irregularly irregular Heart sounds: normal: S1, S2 - Gastrointestinal General gastrointestinal: normal bowel sounds - Integumentary Integumentary: decreased turgor - Neurologic Neurologic: CNII-XII intact - Musculoskeletal Musculoskeletal: generalized weakness - Psychiatric Psychiatric: A&O x's 3, intact judgment & insight Results - Laboratory Findings CBC and BMP: 01/25/18 05:57 01/25/18 05:57 PT/INR, D-dimer PT 22.6 sec (9.0-12.0) H 01/25/18 05:57 INR 2.5 (<1.2) H 01/25/18 05:57 Abnormal lab findings: Abnormal Labs 01/24/18 01/24/18 01/24/18 11:30 11:30 11:30 WBC 3.7 L RBC 3.77 L Hgb 11.1 L Hct 36.4 L MCHC 30.5 L RDW 15.7 H Plt Count 141 L Lymphocytes # 0.6 L PT INR APTT BUN 80 H Creatinine 4.24 H Glucose 101 H AST 16 L Alkaline Phosphatase 131 H Total Creatine Kinase 28 L Troponin I 0.041 H* Total Protein 5.5 L Albumin 2.9 L 01/24/18 01/25/18 01/25/18 11:30 05:57 05:57 WBC 3.7 L RBC 3.50 L Hgb 10.4 L Hct 33.4 L MCHC RDW 15.6 H Plt Count 135 L Lymphocytes # 0.6 L PT 22.3 H INR 2.5 H APTT 45.0 H BUN 85 H Creatinine 4.21 H Glucose AST Alkaline Phosphatase Total Creatine Kinase Troponin I Total Protein Albumin 01/25/18 05:57 WBC RBC Hgb Hct MCHC RDW Plt Count Lymphocytes # PT 22.6 H INR 2.5 H APTT BUN Creatinine Glucose AST Alkaline Phosphatase Total Creatine Kinase Troponin I Total Protein Albumin - Diagnostic Findings Chest x-ray: image reviewed Assessment and Plan Assessment: Impression: #1 Acute hypoxic respiratory failure secondary to recurrent left-sided pleural effusion. Recent left-sided thoracentesis on 12/28/2017 with 2.4 L of fluid removed. Negative for malignancy. #2 Atrial fibrillation, anticoagulated with warfarin. INR 2.5. #3 Mildly impaired left ventricular systolic function with ejection fraction 45- 50%. #4 Stage V kidney disease secondary to FSGS, current creatinine 4.21. Right upper extremity fistula placed in September 2017. He had not received hemodialysis thus far. #5 Anemia of chronic disease. Current hemoglobin 10.4. #6 Hypertension. #7 Hyperlipidemia. #8 Previous history of right sided pleural effusion with subsequent thoracentesis in 2014. Plan: The patient was seen and evaluated by Dr. Ortiz. Chest x-ray, ultrasound and labs were all reviewed. We will plan for repeat thoracentesis of the left chest tomorrow. He'll receive vitamin K today. Repeat INR in the a.m. Nephrology is on the case and is considering hemodialysis. We will continue bronchodilators, continue Pulmicort and Perforomist inhalations. Heparin for DVT prophylaxis. Protonix for GI prophylaxis. We will increase his activity as tolerated. We'll continue to follow. I, the cosigning physician, performed a history & physical examination of the patient. Lungs sounds with few scattered rhonchi, crackles in the left posterior base. Diminished.. Maintaining good O2 saturations in the 90s on 2 L /m per nasal cannula. I discussed the assessment and plan of care with my nurse practitioner, Charity Diallo. I attest to the above note as dictated by her. Time with Patient: Greater than 30
--- NOTE | 2018-01-25 11:24 | P.CRDCN ---
History of Present Illness History of present illness: This is Dr. Bishop dictating a consult on this patient The patient was interviewed and examined by me IMPRESSION / ASSESSMENT: Persistent atrial fibrillation Mildly reduced LV systolic function ejection fraction 45% PLAN: Rate control and anticoagulation for atrial fibrillation. At this time the Coumadin will have to be reversed for thoracentesis By pulmonary medicine I will switch to a shorter acting dose of metoprolol rather than atenolol and watch heart rates while on telemetry DC atenolol start metoprolol 1.5 mg twice daily metoprolol tartrate HPI Shortness of breath History of COPD, recent diagnosis of pneumonia with pleural effusion Exertional shortness of breath walking about 10 feet or so No chest pain ROS: No fever chills or rigors, no cough, phlegm or expectoration, no nausea, vomiting or diarrhea, no hematuria, dysuria, no musculoskeletal complaints, no strokes or seizures, no skin lesions. EXAMINATION Low-grade temperature 99.1F, pulse rate 121 beats a minute Blood pressure 98/55 mmHg Decreased air entry with reduced breath sounds left side Irregular rhythm no murmurs no gallop Mild lower extremity edema left lower extremity Abdomen is soft nontender No JVD Lying comfortably in bed in no respiratory distress REVIEW OF LABS, ECG Hemoglobin 10.4, white count 3.7, INR 2.5, sodium and potassium normal, BUN 85, creatinine 4.2 Borderline troponin of 0.041 NT proBNP 17,400, low albumin Telemetry ECG shows atrial fibrillation heart rate 88 beats a minute narrow QRS Past Medical History Past Medical History: Atrial Fibrillation, COPD, Hyperlipidemia, Hypertension, Renal Disease Additional Past Medical History / Comment(s): . History of Any Multi-Drug Resistant Organisms: None Reported Past Surgical History: Hernia Repair Additional Past Surgical History / Comment(s): Mastoid surgery X3 Past Anesthesia/Blood Transfusion Reactions: No Reported Reaction Past Psychological History: No Psychological Hx Reported Smoking Status: Former smoker Past Alcohol Use History: Occasional Past Drug Use History: None Reported - Past Family History Father Family Medical History: Asthma Mother Family Medical History: Hypertension Medications and Allergies Home Medications Medication Instructions Recorded Confirmed Type Brimonidine Tartrate [Alphagan P 1 drop BOTH EYES BID 12/10/14 01/24/18 History 0.1% Ophth Soln] Timolol 0.5% Ophth Soln [Timoptic 1 drop BOTH EYES DAILY 12/11/14 01/24/18 History 0.5% Ophth Soln] Allopurinol [Zyloprim] 100 mg PO HS 12/27/17 01/24/18 History Atenolol [Tenormin] 12.5 mg PO Q48H 12/27/17 01/24/18 History Calcitriol 0.25 mcg PO Q14D 12/27/17 01/24/18 History Cholecalciferol (Vitamin D3) 2,000 unit PO HS 12/27/17 01/24/18 History [Vitamin D3] Ferrous Sulfate [Iron (65 MG 325 mg PO HS 12/27/17 01/24/18 History Elemental)] Multivitamins, Thera [Multivitamin 1 tab PO HS 12/27/17 01/24/18 History (formulary)] Warfarin [Coumadin] 2.5 mg PO SUMOWEFR 12/27/17 01/24/18 History Warfarin [Coumadin] 5 mg PO TUTHSA 12/27/17 01/24/18 History rOPINIRole HCL [Requip] 4 mg PO HS 12/27/17 01/24/18 History Sodium Bicarbonate Tab 650 mg PO QID #0 tab 12/31/17 01/24/18 Rx Furosemide [Lasix] 20 mg PO MOWEFR 01/24/18 01/24/18 History Furosemide [Lasix] 40 mg PO SUTUTHSA 01/24/18 01/24/18 History Melatonin 10 mg PO 01/24/18 01/24/18 History Tamsulosin HCl [Flomax] 0.4 mg PO BID 01/24/18 01/24/18 History Allergies Allergy/AdvReac Type Severity Reaction Status Date / Time No Known Allergies Allergy Verified 01/24/18 11:51 Physical Exam Vitals: Vital Signs Temp Pulse Pulse Resp BP BP Pulse Ox 01/25/18 11:22 94 01/25/18 11:09 92 01/25/18 09:29 99.1 F 121 H 24 98/55 97 01/25/18 08:11 102 H 01/25/18 08:00 97.4 F L 114 H 16 93/55 95 01/25/18 07:58 100 01/25/18 07:48 98 97 01/25/18 04:00 97.5 F L 112 H 20 118/55 01/25/18 00:00 107 H 18 107/69 96 01/24/18 21:58 100 01/24/18 21:44 100 01/24/18 21:33 100 01/24/18 19:54 96.7 F L 94 19 98/54 96 01/24/18 16:00 97.4 F L 100 16 104/65 98 01/24/18 15:39 97.5 F L 83 16 107/60 100 01/24/18 13:54 81 16 120/61 96 01/24/18 13:13 93 16 118/73 99 01/24/18 12:04 96 16 110/65 99 01/24/18 11:43 97 01/24/18 11:33 90 Intake and Output 01/24/18 01/25/18 01/25/18 22:59 06:59 14:59 Intake Total 240 240 Output Total 350 350 Balance -110 -350 240 Intake: Oral 240 240 Output: Urine 350 350 Other: Voiding Method Toilet Toilet # Voids 1 Weight 82.9 kg Results 01/25/18 05:57 01/25/18 05:57 Cardiac Enzymes 01/24/18 01/24/18 Range/Units 11:30 11:30 AST 16 L (17-59) U/L CK-MB (CK-2) 1.6 (0.0-2.4) ng/mL Troponin I 0.041 H* (0.000-0.034) ng/mL Coagulation 01/24/18 01/25/18 Range/Units 11:30 05:57 PT 22.3 H 22.6 H (9.0-12.0) sec APTT 45.0 H (22.0-30.0) sec CBC 01/24/18 01/25/18 Range/Units 11:30 05:57 WBC 3.7 L 3.7 L (3.8-10.6) k/uL RBC 3.77 L 3.50 L (4.30-5.90) m/uL Hgb 11.1 L 10.4 L (13.0-17.5) gm/dL Hct 36.4 L 33.4 L (39.0-53.0) % Plt Count 141 L 135 L (150-450) k/uL Comprehensive Metabolic Panel 01/24/18 01/25/18 Range/Units 11:30 05:57 Sodium 141 137 (137-145) mmol/L Potassium 4.1 4.4 (3.5-5.1) mmol/L Chloride 105 106 (98-107) mmol/L Carbon Dioxide 25 23 (22-30) mmol/L BUN 80 H 85 H (9-20) mg/dL Creatinine 4.24 H 4.21 H (0.66-1.25) mg/dL Glucose 101 H 96 (74-99) mg/dL Calcium 8.5 8.5 (8.4-10.2) mg/dL AST 16 L (17-59) U/L ALT 25 (21-72) U/L Alkaline Phosphatase 131 H (38-126) U/L Total Protein 5.5 L (6.3-8.2) g/dL Albumin 2.9 L (3.5-5.0) g/dL Current Medications Generic Name Dose Route Start Last Admin Trade Name Freq PRN Reason Stop Dose Admin Acetaminophen 500 mg 01/24/18 18:43 Tylenol Tab PO Q6HR PRN Fever and/ or Pain Hydrocodone Bitart/Acetaminophen 1 each 01/24/18 18:43 [place] 5-325 PO Q6HR PRN Moderate Pain Albuterol/Ipratropium 3 ml 01/24/18 18:42 Duoneb 0.5 Mg-3 Mg/3 Ml Soln INHALATION RT-QID PRN Shortness Of Breath Or Wheezing Albuterol/Ipratropium 3 ml 01/24/18 20:00 01/25/18 11:09 Duoneb 0.5 Mg-3 Mg/3 Ml Soln INHALATION 3 ml RT-QID SHILA Administration Allopurinol 100 mg 01/24/18 21:00 01/24/18 20:42 Zyloprim PO 100 mg HS SHILA Administration Alprazolam 0.25 mg 01/24/18 18:43 Xanax PO TID PRN Anxiety Atenolol 12.5 mg 01/25/18 09:00 01/25/18 10:35 Tenormin PO 12.5 mg Q48H SHILA Administration Brimonidine Tartrate 1 drops 01/24/18 21:00 01/25/18 10:36 Alphagan P 0.2% Ophth Soln BOTH EYES 1 drops BID SHILA Administration Budesonide 1 mg 01/24/18 20:00 01/25/18 07:48 Pulmicort INHALATION 1 mg RT-BID SHILA Administration Calcitriol 0.25 mcg 01/30/18 09:00 Rocaltrol PO Q14D SHILA Cholecalciferol 2,000 unit 01/24/18 21:00 01/24/18 20:43 Vitamin D3 PO 2,000 unit HS SHILA Administration Ferrous Sulfate 325 mg 01/24/18 21:00 01/24/18 20:42 Feosol PO 325 mg HS SHILA Administration Formoterol Fumarate 20 mcg 01/24/18 20:00 01/25/18 07:48 Perforomist INHALATION 20 mcg RT-BID SHILA Administration Furosemide 80 mg 01/25/18 18:00 Lasix IV Q12H SHILA Heparin Sodium (Porcine) 5,000 unit 01/24/18 21:00 01/25/18 10:35 Heparin SQ 5,000 unit Q12HR SHILA Administration Ceftriaxone Sodium 1,000 mg/ 50 mls @ 100 mls/hr 01/24/18 18:45 01/25/18 10: 36 Sodium Chloride IVPB 100 mls/hr Q24HR SHILA Administration Melatonin 10 mg 01/24/18 21:00 01/24/18 20:43 Melatonin PO 10 mg HS SHILA Administration Multivitamins 1 each 01/24/18 21:00 01/24/18 20:42 Theragran PO 1 each HS SHILA Administration Pantoprazole Sodium 40 mg 01/25/18 07:30 01/25/18 06:29 Protonix PO 40 mg AC-[id number] SHILA Administration Ropinirole HCl 4 mg 01/24/18 21:00 01/24/18 20:42 Requip PO 4 mg HS SHILA Administration Sodium Bicarbonate 650 mg 01/24/18 22:00 01/25/18 10:34 Sodium Bicarbonate Tab PO 650 mg QID SHILA Administration Sodium Chloride 10 ml 01/24/18 21:00 01/25/18 10:46 Saline Flush IV 10 ml BID SHILA Administration Tamsulosin HCl 0.4 mg 01/24/18 21:00 01/25/18 10:34 Flomax PO 0.4 mg BID SHILA Administration Timolol Maleate 1 drops 01/25/18 21:00 Timoptic BOTH EYES HS SHILA Intake and Output 01/24/18 01/25/18 01/25/18 22:59 06:59 14:59 Intake Total 240 240 Output Total 350 350 Balance -110 -350 240 Intake: Oral 240 240 Output: Urine 350 350 Other: Voiding Method Toilet Toilet # Voids 1 Weight 82.9 kg 01/25/18 05:57 01/25/18 05:57
--- NOTE | 2018-01-25 12:13 | CONS ---
CONSULTATION This is an 82-year-old gentleman who is known to me from the past. We created a cephalobrachial fistula in the right arm. He was seen last in my office and we did the venous ultrasound and he has a cephalic vein. Elbow is 12 mm. mid arm is 9 mm and upper is 9 mm. The radial pulses are present. Vein has some tortuosity. Patient has been admitted with congestive heart failure. We were consulted for evaluation of the fistula. MEDICAL HISTORY: History of congestive heart failure, chronic renal failure. On examination, neck is supple. Trachea central. Chest has crackles, bilateral. Abdomen is soft. Femoral pulses are present. Patient has a right upper arm cephalobrachial fistula, has a good thrill. Radial pulses are present. Patient's creatinine is 4.21 and BUN is 85. PLAN: Fistula can be accessed with a small needle. Discussed with Dr. Thompson. MMLAUREN / ISABELLAN: [id number] /
[2018-01-25] MEDS ORDERED: PHYTONADIONE ORAL 5 MG/5 ML ORAL.SYRG PO STA (13:53)
[2018-01-25] MEDS: METOPROLOL TARTRATE 12.5 MG TAB PO SCH ×2 (14:37→20:37)
[2018-01-25] MEDS: FUROSEMIDE 10 MG/ML 10 ML VIAL IV SCH (19:02)
[2018-01-25] MEDS: ALLOPURINOL 100 MG TAB PO SCH (20:35)
[2018-01-25] MEDS: FERROUS SULFATE 325 MG TAB PO SCH (20:36)
[2018-01-25] MEDS: CHOLECALCIFEROL 1,000 UNIT TAB PO SCH (20:36)
[2018-01-25] MEDS: MELATONIN 5 MG TABLET PO SCH (20:37)
[2018-01-25] MEDS: rOPINIRole HCL 4 MG TABLET PO SCH (20:38)
[2018-01-25] MEDS: MULTIVITAMINS, THERA 1 EACH TAB PO SCH (20:38)
[2018-01-26] MEDS: SODIUM BICARBONATE TAB 650 MG TAB PO SCH ×5 (01:27→23:30)
[2018-01-26] MEDS: PANTOPRAZOLE 40 MG TABLET PO SCH (06:32)
[2018-01-26] MEDS: FUROSEMIDE 10 MG/ML 10 ML VIAL IV SCH ×2 (06:32→19:36)
[2018-01-26 07:38] LABS: HGB 9.8 gm/dL (13.0-17.5); Hypochromasia Moderate; MCH 28.4 pg (25.0-35.0); MCHC 29.8 g/dL (31.0-37.0); MCV 95.3 fL (80.0-100.0); Platelet Count 148 k/uL (150-450); RBC 3.46 m/uL (4.30-5.90); RDW 15.7 % (11.5-15.5)
[2018-01-26 07:39] LABS: INR 1.4 (<1.2); Prothrombin Time 13.2 sec (9.0-12.0)
[2018-01-26] MEDS: FORMOTEROL FUMARATE 20 MCG/2 ML NEBU INHALATION SCH ×2 (07:39→21:39)
[2018-01-26] MEDS: BUDESONIDE 1 MG/2 ML NEBU INHALATION SCH ×2 (07:39→21:39)
[2018-01-26] MEDS: IPRATROPIUM-ALBUTEROL 3 ML NEB INHALATION SCH ×4 (07:39→21:39)
[2018-01-26 07:42] LABS: Calcium 8.4 mg/dL (8.4-10.2); Phosphorus 4.6 mg/dL (2.5-4.5); Potassium 4.1 mmol/L (3.5-5.1)
[2018-01-26 08:51] LABS: Basophils # (M) 0.04 k/uL (0-0.2); Lymphocytes # (M) 0.64 k/uL (1.0-4.8); Monocytes # (M) 0.56 k/uL (0-1.0); Neutrophils # (M) 2.36 k/uL (1.3-7.7); Neutrophils % (M) 59 %; Nucleated Red Blood Cells 0 /100 WBC (0-0); Total Cells Counted 100
[2018-01-26 08:52] LABS: Poikilocytosis (M) Present
--- NOTE | 2018-01-26 09:34 | P.PN ---
Subjective Patient is seen in follow-up for chronic kidney disease stage V. Etiologies FSGS. Hemodialysis was attempted yesterday using his right upper extremity AV fistula but the treatment was terminated due to concern for venous leak. Currently is resting in bed. Still dyspneic. No vomiting or diarrhea. Scheduled for permacath placement today and hemodialysis afterwards. Vital signs are stable. General: The patient appeared well nourished and normally developed. HEENT: Head exam is unremarkable. Neck is without jugular venous distension. LUNGS: Breath sounds decreased. HEART: Rate and Rhythm are regular. First and second heart sounds normal. No murmurs, rubs or gallops. ABDOMEN: Abdominal exam reveals normal bowel sounds. Non-tender and non- distended. No evidence of peritonitis. EXTREMITITES: No clubbing, cyanosis, or edema. Objective - Vital Signs Vital signs: Vital Signs Temp 97.5 F L 01/26/18 08:00 Pulse 92 01/26/18 08:07 Resp 18 01/26/18 08:00 BP 113/59 01/26/18 08:00 Pulse Ox 96 01/26/18 08:00 Intake & Output 01/25/18 01/26/18 01/26/18 18:59 06:59 18:59 Intake Total 820 Output Total 400 575 Balance 420 -575 Weight 82.9 kg 82.5 kg Intake: IV 50 Invasive Line 1 50 Intake, IV Titration 50 Amount cefTRIAXone 1,000 mg In 50 Sodium Chloride 0.9% 50 ml @ 100 mls/hr IVPB Q24HR [facility] Rx#:[id number] Oral 720 Output: Urine 400 575 Other: Voiding Method Urinal Urinal Urinal # Voids 2 # Bowel Movements 1 - Labs CBC & Chem 7: 01/26/18 07:06 01/26/18 07:06 Labs: Abnormal Lab Results - Last 24 Hours (Table) 01/26/18 01/26/18 01/26/18 Range/Units 07:06 07:06 07:06 RBC 3.46 L (4.30-5.90) m/uL Hgb 9.8 L (13.0-17.5) gm/dL Hct 33.0 L (39.0-53.0) % MCHC 29.8 L (31.0-37.0) g/dL RDW 15.7 H (11.5-15.5) % Plt Count 148 L (150-450) k/uL Lymphocytes # (Manual) 0.64 L (1.0-4.8) k/uL PT 13.2 H (9.0-12.0) sec INR 1.4 H (<1.2) BUN 84 H (9-20) mg/dL Creatinine 4.82 H (0.66-1.25) mg/dL Glucose 100 H (74-99) mg/dL Phosphorus 4.6 H (2.5-4.5) mg/dL Assessment and Plan Plan: Assessment: 1. 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 Patient has a right upper extremity fistula which is not being used due to venous leak. 2. Moderate left-sided pleural effusion. 3. Anemia of chronic kidney disease. Rule out iron deficiency. 4. Chronic kidney disease mineral bone disease maintained on calcitriol. 5. Metabolic acidosis maintained on oral sodium bicarbonate. 6. Dyspnea secondary to volume overload. 7. Systolic CHF with ejection fraction of 45-50%. 8. Hyperphosphatemia secondary to chronic kidney disease. Expect improvement after dialysis. Plan: Continue Lasix 80 mg IV twice daily. Patient is starting to develop symptoms of uremia including fatigue and poor appetite. Additionally he is hypervolemic. I will start hemodialysis today once permacath placed this afternoon. Check iron studies. Thoracentesis per pulmonology today.
[2018-01-26] MEDS: HEPARIN SODIUM,PORCINE 5,000 UNIT/ML 1 ML VIAL SQ SCH ×2 (10:24→21:57)
[2018-01-26] MEDS: BRIMONIDINE TARTRATE 0.2% DROPS 5 ML BTL BOTH EYES SCH ×2 (10:24→21:57)
[2018-01-26] MEDS: TAMSULOSIN 0.4 MG CAP.ER.24H PO SCH ×2 (10:24→21:56)
[2018-01-26] MEDS: METOPROLOL TARTRATE 12.5 MG TAB PO SCH ×2 (10:24→21:56)
--- NOTE | 2018-01-26 10:42 | P.PN ---
Subjective Progress Note Date: 01/26/18 Principal diagnosis: Acute hypoxic respiratory failure secondary to recurrent left-sided pleural effusion. This is a very pleasant 82-year-old gentleman who follows with Dr. Ortiz as his primary care physician. He has a history of chronic renal failure not currently on dialysis him a atrial fibrillation anticoagulant with warfarin, chronic obstructive pulmonary disease, hyperlipidemia, hypertension. He also has a history of recurrent pleural effusions. In 2014 he had a right-sided pleural effusion status post thoracentesis. He also more recently had a left- sided thoracentesis with 2.4 L of bloody effusion removed. The pathology was negative for malignancy. A follow-up computed tomography scan of the chest at that time had revealed small residual left pleural effusion. There is a small area of groundglass opacity in the left lung. Suspected focus of reexpansion alveolar edema. No other abnormalities were noted. No masses or nodules. Total protein 2.8, LDH 251. Today's echocardiogram revealed moderate concentric left ventricular hypertrophy with only mildly impaired left ventricular systolic function with ejection fraction 45-50%. No significant valvular disease. No pulmonary hypertension. The patient is seen today in consultation on the selective care unit. He is awake and alert in no acute distress. He is quite dyspneic on minimal exertion. He is also fatigued and weak. He is maintaining O2 saturations in the mid 90s on 2 L/m per nasal cannula. Current temperature 99.1. Slightly tachycardic remains in atrial fibrillation. White count 3.7. Hemoglobin 10.4. Platelet count 135. Troponin 0.041. ProBNP 17,400. He does have a mature right upper extremity AV fistula placed back in September 2017. BUN 85, creatinine 4.21. INR 2.5. The patient is seen today 01/26/2018 in follow-up on the selective care unit. He is currently resting comfortably in bed. He remains dyspneic on minimal exertion however. He is maintaining O2 saturations in the 90s on room air. He' s been afebrile. Hemodynamically stable. There were unable to access the right upper extremity fistula for hemodialysis yesterday. The plan is for temporary dialysis catheter be placed today and possibly hemodialysis later this afternoon. He was given a dose of vitamin K yesterday and his INR is 1.4. We'll proceed with a left-sided thoracentesis this morning. He count 4.0. Hemoglobin 9.8. Platelet count 148,000. BUN 84. Creatinine 4.82. Objective - Vital Signs Vital signs: Vital Signs Temp 97.5 F L 01/26/18 08:00 Pulse 92 01/26/18 08:07 Resp 18 01/26/18 08:00 BP 113/59 01/26/18 08:00 Pulse Ox 96 01/26/18 08:00 Intake & Output 01/25/18 01/26/18 01/26/18 18:59 06:59 18:59 Intake Total 820 Output Total 400 575 Balance 420 -575 Weight 82.9 kg 82.5 kg Intake: IV 50 Invasive Line 1 50 Intake, IV Titration 50 Amount cefTRIAXone 1,000 mg In 50 Sodium Chloride 0.9% 50 ml @ 100 mls/hr IVPB Q24HR [facility] Rx#:[id number] Oral 720 Output: Urine 400 575 Other: Voiding Method Urinal Urinal Urinal # Voids 2 # Bowel Movements 1 - Exam - Constitutional General appearance: average body habitus, disheveled, mild distress - EENT Eyes: EOMI, PERRLA ENT: hearing grossly normal Ears: bilateral: normal - Neck Neck: normal ROM Carotids: bilateral: upstroke normal Thyroid: bilateral: normal size - Respiratory Respiratory: left: diminished, rales - Cardiovascular Rhythm: irregularly irregular Heart sounds: normal: S1, S2 - Gastrointestinal General gastrointestinal: normal bowel sounds - Integumentary Integumentary: decreased turgor - Neurologic Neurologic: CNII-XII intact - Musculoskeletal Musculoskeletal: generalized weakness - Psychiatric Psychiatric: A&O x's 3, intact judgment & insight - Labs CBC & Chem 7: 01/26/18 07:06 01/26/18 07:06 Labs: Abnormal Lab Results - Last 24 Hours (Table) 01/26/18 01/26/18 01/26/18 Range/Units 07:06 07:06 07:06 RBC 3.46 L (4.30-5.90) m/uL Hgb 9.8 L (13.0-17.5) gm/dL Hct 33.0 L (39.0-53.0) % MCHC 29.8 L (31.0-37.0) g/dL RDW 15.7 H (11.5-15.5) % Plt Count 148 L (150-450) k/uL Lymphocytes # (Manual) 0.64 L (1.0-4.8) k/uL PT 13.2 H (9.0-12.0) sec INR 1.4 H (<1.2) BUN 84 H (9-20) mg/dL Creatinine 4.82 H (0.66-1.25) mg/dL Glucose 100 H (74-99) mg/dL Phosphorus 4.6 H (2.5-4.5) mg/dL Assessment and Plan Assessment: Impression: #1 Acute hypoxic respiratory failure secondary to recurrent left-sided pleural effusion. Recent left-sided thoracentesis on 12/28/2017 with 2.4 L of fluid removed. Negative for malignancy. Plan to repeat thoracentesis today. #2 Atrial fibrillation, anticoagulated with warfarin. INR 1.4 today. #3 Mildly impaired left ventricular systolic function with ejection fraction 45- 50%. #4 Stage V kidney disease secondary to FSGS, current creatinine 4.82. Right upper extremity fistula placed in September 2017. He had not received hemodialysis thus far. #5 Anemia of chronic disease. Current hemoglobin 9.8. #6 Hypertension. #7 Hyperlipidemia. #8 Previous history of right sided pleural effusion with subsequent thoracentesis in 2014. Plan: The patient was seen and evaluated by Dr. Ortiz. We will plan for repeat thoracentesis of the left chest today. INR 1.4. Nephrology is on the case and patient will be receiving a temporary hemodialysis catheter today with hemodialysis later this afternoon. We'll continue to follow. I, the cosigning physician, performed a history & physical examination of the patient. Lungs sounds with few scattered rhonchi, crackles in the left posterior base. Diminished.. Maintaining good O2 saturations in the 90s on 2 L /m per nasal cannula. I discussed the assessment and plan of care with my nurse practitioner, Charity Diallo. I attest to the above note as dictated by her.
[2018-01-26] MEDS ORDERED: LIDOCAINE 1% INJ 10MG/ML (20 ML MDV) ONE (13:54)
--- NOTE | 2018-01-26 13:56 | XR ---
EXAMINATION TYPE: XR chest 1V portable DATE OF EXAM: 01/26/2018 COMPARISON: 01/24/2018 INDICATION: Status post left thoracentesis TECHNIQUE: Single frontal view of the chest is obtained. FINDINGS: The heart size is normal. The pulmonary vasculature is normal. Small left pleural effusion. This is diminished from comparison. There are scattered infiltrates at the right base, likely on the basis of mild atelectasis. IMPRESSION: 1. Diminished left pleural effusion postthoracentesis. No pneumothorax is evident. 2. Minimal subsegmental atelectasis right base.
[2018-01-26] MEDS ORDERED: LIDOCAINE 1% INJ 10MG/ML (20 ML MDV) SQ ONE (14:10)
[2018-01-26] MEDS ORDERED: HEPARIN SODIUM 1,000 UN/ML (10ML VL) ONE (14:25)
[2018-01-26] MEDS ORDERED: HEPARIN SODIUM 1,000 UN/ML (10ML VL) IV ONE (14:32)
--- NOTE | 2018-01-26 15:41 | P.PN ---
Subjective Progress Note Date: 01/25/18 Personal being dictated for Dr. Delarosa. Interval history: This a 82-year-old gentleman admitted with shortness of breath , multifactorial, possible CHF exacerbation, COPD exacerbation, recurrent left pleural effusion, end-stage renal disease and multiple other medical issues. Creatinine 4.21. Dr. Carr to evaluate /clear fistula for initiation of hemodialysis. Lasix IV push increased as per nephrology. Maintaining O2 sats in the mid 90s on 2 L nasal cannula. T-max 99.1. INR 2.4. Telemetry atrial fibrillation. Objective - Vital Signs Vital signs: Vital Signs Temp 99.1 F 01/25/18 09:29 Pulse 121 H 01/25/18 09:29 Resp 24 01/25/18 09:29 BP 98/55 01/25/18 09:29 Pulse Ox 97 01/25/18 09:29 Intake & Output 01/24/18 01/25/18 01/25/18 18:59 06:59 18:59 Intake Total 240 240 Output Total 700 Balance 240 -700 240 Weight 81.647 kg 82.9 kg Intake: Oral 240 240 Output: Urine 700 Other: Voiding Method Toilet # Voids 1 - Exam PHYSICAL EXAM: VITAL SIGNS: As above GENERAL: Sitting up in bed, respiratory effort increased, fatigued HEENT: Conjunctivae normal. eyes normal. Oral mucosa moist NECK: no JVD. No thyroid enlargement. No LNs CARDIOVASCULAR: S1, S2 muffled. No murmur RESPIRATION: Breath sounds diminished in the bases. Bilateral scattered rhonchi and crackles. ABDOMEN: Soft, nontender . No guarding. no masses palpable. Bowel sounds heard. LEGS: Bilateral leg edema, right greater than left. PSYCHIATRY: Alert and oriented -3, mood and affect normal. NERVOUS SYSTEM: Cranial N 2-12 grossly normal. Moves all 4 limbs. Diffuse weakness No focal deficits. Skin: no ulcer no rash Lymphatic system. No LN neck axilla or groin. - Labs CBC & Chem 7: 01/26/18 07:06 01/26/18 07:06 Labs: Abnormal Lab Results - Last 24 Hours (Table) 01/24/18 01/24/18 01/24/18 Range/Units 11:30 11:30 11:30 WBC 3.7 L (3.8-10.6) k/uL RBC 3.77 L (4.30-5.90) m/uL Hgb 11.1 L (13.0-17.5) gm/dL Hct 36.4 L (39.0-53.0) % MCHC 30.5 L (31.0-37.0) g/dL RDW 15.7 H (11.5-15.5) % Plt Count 141 L (150-450) k/uL Lymphocytes # 0.6 L (1.0-4.8) k/uL PT (9.0-12.0) sec INR (<1.2) APTT (22.0-30.0) sec BUN 80 H (9-20) mg/dL Creatinine 4.24 H (0.66-1.25) mg/dL Glucose 101 H (74-99) mg/dL AST 16 L (17-59) U/L Alkaline Phosphatase 131 H (38-126) U/L Total Creatine Kinase 28 L (55-170) U/L Troponin I 0.041 H* (0.000-0.034) ng/mL Total Protein 5.5 L (6.3-8.2) g/dL Albumin 2.9 L (3.5-5.0) g/dL 01/24/18 01/25/18 01/25/18 Range/Units 11:30 05:57 05:57 WBC 3.7 L (3.8-10.6) k/uL RBC 3.50 L (4.30-5.90) m/uL Hgb 10.4 L (13.0-17.5) gm/dL Hct 33.4 L (39.0-53.0) % MCHC (31.0-37.0) g/dL RDW 15.6 H (11.5-15.5) % Plt Count 135 L (150-450) k/uL Lymphocytes # 0.6 L (1.0-4.8) k/uL PT 22.3 H (9.0-12.0) sec INR 2.5 H (<1.2) APTT 45.0 H (22.0-30.0) sec BUN 85 H (9-20) mg/dL Creatinine 4.21 H (0.66-1.25) mg/dL Glucose (74-99) mg/dL AST (17-59) U/L Alkaline Phosphatase (38-126) U/L Total Creatine Kinase (55-170) U/L Troponin I (0.000-0.034) ng/mL Total Protein (6.3-8.2) g/dL Albumin (3.5-5.0) g/dL 01/25/18 Range/Units 05:57 WBC (3.8-10.6) k/uL RBC (4.30-5.90) m/uL Hgb (13.0-17.5) gm/dL Hct (39.0-53.0) % MCHC (31.0-37.0) g/dL RDW (11.5-15.5) % Plt Count (150-450) k/uL Lymphocytes # (1.0-4.8) k/uL PT 22.6 H (9.0-12.0) sec INR 2.5 H (<1.2) APTT (22.0-30.0) sec BUN (9-20) mg/dL Creatinine (0.66-1.25) mg/dL Glucose (74-99) mg/dL AST (17-59) U/L Alkaline Phosphatase (38-126) U/L Total Creatine Kinase (55-170) U/L Troponin I (0.000-0.034) ng/mL Total Protein (6.3-8.2) g/dL Albumin (3.5-5.0) g/dL Assessment and Plan Assessment: -Shortness of breath, multifactorial -acute on chronic exacerbation CHF, systolic dysfunction, EF 40-45%, secondary to hypervolemia -Acute COPD exacerbation -Recurrent left pleural effusion, recent left-sided thoracentesis a 2017- negative for malignancy. 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 -Coumadin Monitoring -Chronic Atrial fibrillation -Hypertension -Hyperlipidemia -Anemia of chronic disease -Metabolic acidosis Plan: Continue on current medication regime , oral sodium bicarb, monitoring and symptomatic treatment. Maintain nebulized bronchodilators. Initiation of hemodialysis pending vascular surgery clearance to use fistula. Pulmonary discussing repeating left thoracentesis tomorrow. INR currently 2.5, receiving vitamin K. Close monitoring of PT/INR, renal function, electrolytes with repeat labs ordered for a.m. Prognosis guarded given multiple complex medical issues. The impression and plan of care has been dictated as directed. : I performed a history and examination of this patient, discussed the same with the dictator. I agree with the dictator's note ,documented as a scribe. Any additional findings or plans will be noted.
--- NOTE | 2018-01-26 15:50 | P.PN ---
Subjective Progress Note Date: 01/26/18 Personal being dictated for Dr. Delarosa. Interval history: This a 82-year-old gentleman admitted with shortness of breath , multifactorial, possible CHF exacerbation, COPD exacerbation, recurrent left pleural effusion, end-stage renal disease and multiple other medical issues. Creatinine 4.21. Dr. Carr to evaluate /clear fistula for initiation of hemodialysis. Lasix IV push increased as per nephrology. Maintaining O2 sats in the mid 90s on 2 L nasal cannula. T-max 99.1. INR 2.4. Telemetry atrial fibrillation. 01/26/2018 maintained on Lasix IV push. Creatinine 4.82. hemodialysis attempted via AV fistula, terminated for potential venous leak. Scheduled for permacath placement today. INR 1.4, scheduled for left thoracentesis with pulmonary today. Tired appearing. Denies chest pain, palpitations. Objective - Vital Signs Vital signs: Vital Signs Temp 97.3 F L 01/26/18 12:00 Pulse 96 01/26/18 13:30 Resp 18 01/26/18 13:30 BP 103/60 01/26/18 13:30 Pulse Ox 95 01/26/18 13:15 Intake & Output 01/25/18 01/26/18 01/26/18 18:59 06:59 18:59 Intake Total 820 Output Total 400 575 500 Balance 420 -575 -500 Weight 82.9 kg 82.5 kg Intake: IV 50 Invasive Line 1 50 Intake, IV Titration 50 Amount cefTRIAXone 1,000 mg In 50 Sodium Chloride 0.9% 50 ml @ 100 mls/hr IVPB Q24HR [facility] Rx#:[id number] Oral 720 Output: Urine 400 575 500 Other: Voiding Method Urinal Urinal Urinal # Voids 2 # Bowel Movements 1 - Exam PHYSICAL EXAM: VITAL SIGNS: As above GENERAL: Sitting up in bed, respiratory effort increased, fatigued HEENT: Conjunctivae normal. eyes normal. NECK: no JVD. No thyroid enlargement. No LNs CARDIOVASCULAR: S1, S2 muffled. No murmur RESPIRATION: Breath sounds diminished in the bases. Bilateral scattered rhonchi and crackles. ABDOMEN: Soft, nontender . No guarding. no masses palpable. Bowel sounds heard. LEGS: Bilateral leg edema, right greater than left. PSYCHIATRY: Alert and oriented -3, mood and affect normal. NERVOUS SYSTEM: Cranial N 2-12 grossly normal. Moves all 4 limbs. Diffuse weakness No focal deficits. Skin: no ulcer no rash Lymphatic system. No LN neck axilla or groin. - Labs CBC & Chem 7: 01/26/18 07:06 01/26/18 07:06 Labs: Abnormal Lab Results - Last 24 Hours (Table) 01/26/18 01/26/18 01/26/18 Range/Units 07:06 07:06 07:06 RBC 3.46 L (4.30-5.90) m/uL Hgb 9.8 L (13.0-17.5) gm/dL Hct 33.0 L (39.0-53.0) % MCHC 29.8 L (31.0-37.0) g/dL RDW 15.7 H (11.5-15.5) % Plt Count 148 L (150-450) k/uL Lymphocytes # (Manual) 0.64 L (1.0-4.8) k/uL PT 13.2 H (9.0-12.0) sec INR 1.4 H (<1.2) BUN 84 H (9-20) mg/dL Creatinine 4.82 H (0.66-1.25) mg/dL Glucose 100 H (74-99) mg/dL Phosphorus 4.6 H (2.5-4.5) mg/dL Assessment and Plan Assessment: -Shortness of breath, multifactorial -acute on chronic exacerbation CHF, systolic dysfunction, EF 40-45%, secondary to hypervolemia -Acute COPD exacerbation -Recurrent left pleural effusion, recent left-sided thoracentesis a 2017- negative for malignancy. 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 PermCath scheduled secondary to Fistula venous leak. -Coumadin Monitoring -Chronic Atrial fibrillation -Hypertension -Hyperlipidemia -Anemia of chronic disease -Metabolic acidosis Plan: Continue on current medication regime , oral sodium bicarb, monitoring and symptomatic treatment. Maintain nebulized bronchodilators. Initiation of hemodialysis pending PermCath placement . Left thoracentesis pending. Daily PT/ INR, CLose Monitoring of renal function, electrolytes with repeat labs ordered for a.m. Prognosis guarded given multiple complex medical issues. The impression and plan of care has been dictated as directed. : I performed a history and examination of this patient, discussed the same with the dictator. I agree with the dictator's note ,documented as a scribe. Any additional findings or plans will be noted.
--- NOTE | 2018-01-26 16:06 | XR ---
EXAMINATION TYPE: XR chest 1V confirm line [facility] DATE OF EXAM: 01/26/2018 COMPARISON: 01/26/2018 INDICATION: Line placement TECHNIQUE: Single frontal view of the chest is obtained. FINDINGS: The heart size is enlarged. The pulmonary vasculature is normal. Small left pleural effusion may be present . There is placement of the catheter on the right with the tips in the superior vena cava right atrial junction region. No pneumothorax is evident. Chronic changes are at the right shoulder. IMPRESSION: 1. Small left pleural effusion. 2. No pneumothorax post right sided catheter.
[2018-01-26 16:47] LABS: Iron Saturation 11.22 (15.00-50.00)
--- NOTE | 2018-01-26 17:14 | OP ---
OPERATIVE REPORT PREOPERATIVE DIAGNOSIS: Acute on chronic renal failure with malfunctioning right cephalobrachial fistula. PROCEDURE: Ultrasound-guided 23 cm dialysis catheter placed, right jugular approach. SEDATION: Sedation time 19 minutes. DESCRIPTION OF PROCEDURE: This patient was brought to the lab scientist. Right side of the neck and chest was prepped and draped in a sterile manner. Lidocaine 1% was infiltrated in the neck and chest area. Then an ultrasound-guided micropuncture was introduced into the right jugular vein, and micropuncture guidewire was passed and 4-Kinyarwanda dilator was advanced on top of the guidewire. Then we created a tunnel. Through the tunnel we brought a 23 cm dialysis catheter. Then the regular guidewire was passed, which was parked at the inferior vena cava. Then we placed the dilator, and sheath was advanced on the top of the guidewire. Through the sheath we introduced the dialysis catheter. Tip of the catheter was in superior vena cava and atrium, flushed with heparin and saline and hep- locked. Incision was closed with Vicryl and nylon, dressing applied. Patient tolerated the procedure well. MMODL / IJN: [id number] /
--- NOTE | 2018-01-26 18:05 | PCN ---
PROCEDURE NOTE OPERATIVE REPORT: Left-sided thoracentesis. PREOPERATIVE DIAGNOSIS: Left pleural effusion. POSTOPERATIVE DIAGNOSIS: Left pleural effusion. ANESTHESIA USED: 2 mL of 1% lidocaine. PROCEDURE: Patient was placed in a sitting upright position, the area below the left scapula at the level of the 8th intercostal space and tip of the scapula was prepared in a sterile fashion and drapes were applied. Then, the area was locally anesthetized with lidocaine, a 26-gauge needle was inserted at the same site, advanced into the pleural space. The fluid was localized. Then a standard thoracentesis catheter with needle, 8- English used. Prior to using the needle and catheter, a small tiny incision was made at the same site of the 8th intercostal space and tip of the scapula, and then the needle and sheath were introduced at the same place into the pleural space until the fluid was obtained. Then, the needle was pulled out of the pleural space and the catheter was advanced into the pleural space. The fluid was obtained, roughly 1650 mL of yellow colored fluid, obtained from the left pleural space, and it was sent for different diagnostic studies. No evidence of any immediate complications, chest x-ray postoperatively showed no evidence of pneumothorax. MMODL / IJN: [id number] /
[2018-01-26] MEDS: MULTIVITAMINS, THERA 1 EACH TAB PO SCH (21:56)
[2018-01-26] MEDS: rOPINIRole HCL 4 MG TABLET PO SCH (21:56)
[2018-01-26] MEDS: ALLOPURINOL 100 MG TAB PO SCH (21:57)
[2018-01-26] MEDS: TIMOLOL 0.5% OPHTH DROPS 5 ML BTL BOTH EYES SCH (21:57)
[2018-01-26] MEDS: FERROUS SULFATE 325 MG TAB PO SCH (21:57)
[2018-01-26] MEDS: CHOLECALCIFEROL 1,000 UNIT TAB PO SCH (21:57)
[2018-01-26] MEDS: MELATONIN 5 MG TABLET PO SCH (21:57)
[2018-01-27 04:56] LABS: Hepatitis B Surface AB- Quant 3.5 mIU/mL
[2018-01-27 06:06] LABS: INR 1.2 (<1.2); Prothrombin Time 11.5 sec (9.0-12.0)
[2018-01-27 06:09] LABS: HCT 32.6 % (39.0-53.0); Hypochromasia Moderate; MCH 29.1 pg (25.0-35.0); MCHC 30.7 g/dL (31.0-37.0); Mean Platelet Volume 8.1; Platelet Count 156 k/uL (150-450); RBC 3.43 m/uL (4.30-5.90); RDW 15.6 % (11.5-15.5); WBC 3.9 k/uL (3.8-10.6)
[2018-01-27 06:18] LABS: Calcium 8.7 mg/dL (8.4-10.2); Potassium 4.3 mmol/L (3.5-5.1)
[2018-01-27 06:33] LABS: Band Neutrophils % 3 %; Eosinophils # (M) 0.16 k/uL (0-0.7); Lymphocytes # (M) 0.59 k/uL (1.0-4.8); Monocytes # (M) 0.59 k/uL (0-1.0); Neutrophils % (M) 63 %; Nucleated Red Blood Cells 0 /100 WBC (0-0); Total Cells Counted 100
[2018-01-27] MEDS: IPRATROPIUM-ALBUTEROL 3 ML NEB INHALATION SCH ×4 (07:03→19:17)
[2018-01-27] MEDS: BUDESONIDE 1 MG/2 ML NEBU INHALATION SCH ×2 (07:03→19:17)
[2018-01-27] MEDS: FORMOTEROL FUMARATE 20 MCG/2 ML NEBU INHALATION SCH ×2 (07:03→19:17)
--- NOTE | 2018-01-27 07:15 | IR ---
EXAMINATION TYPE: IR cvc insert central tunneled DATE OF EXAM: 01/26/2018 CLINICAL HISTORY: Central catheter insertion for dialysis. TECHNIQUE: Fluoroscopy. COMPARISON: None. FINDINGS: Fluoroscopic guidance was provided during central catheter insertion for dialysis procedur e performed by Dr. Carr. A total of 12 seconds of fluoroscopic time was utilized during the proce dure and 51 spot images are acquired. Images acquired show dual-lumen right internal jugular dialysis catheter with tips in region of right atrium. IMPRESSION: As Above.
--- NOTE | 2018-01-27 09:38 | P.PN ---
Subjective Patient is seen in follow-up for chronic kidney disease stage V. 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 Hemodialysis was attempted initially using his right upper extremity AV fistula but the treatment was terminated due to concern for venous leak. Currently is resting in bed. Still dyspneic but improving. No vomiting or diarrhea. He had a permacath placed on January 26 and underwent second treatment of hemodialysis this morning which he tolerated well. He also underwent a left-sided thoracentesis on January 26 and had about 1.6 L drained. Vital signs are stable. General: The patient appeared well nourished and normally developed. HEENT: Head exam is unremarkable. Neck is without jugular venous distension. LUNGS: Breath sounds decreased. HEART: Rate and Rhythm are regular. First and second heart sounds normal. No murmurs, rubs or gallops. ABDOMEN: Abdominal exam reveals normal bowel sounds. Non-tender and non- distended. No evidence of peritonitis. EXTREMITITES: No clubbing, cyanosis, or edema. Objective - Vital Signs Vital signs: Vital Signs Temp 98.7 F 01/27/18 04:00 Pulse 96 01/27/18 04:00 Resp 18 01/27/18 04:00 BP 93/52 01/27/18 04:00 Pulse Ox 90 L 01/27/18 04:00 Intake & Output 01/26/18 01/27/18 01/27/18 18:59 06:59 18:59 Intake Total 240 10 Output Total 3000 200 Balance -2760 10 -200 Weight 80.3 kg Intake: IV 10 .9 10 Oral 240 Output: Urine 800 200 Other 2200 Other: Voiding Method Urinal Urinal # Voids 1 # Bowel Movements 0 - Labs CBC & Chem 7: 01/27/18 05:40 01/27/18 05:40 Labs: Abnormal Lab Results - Last 24 Hours (Table) 01/26/18 01/27/18 01/27/18 Range/Units 07:06 05:40 05:40 RBC 3.43 L (4.30-5.90) m/uL Hgb 10.0 L (13.0-17.5) gm/dL Hct 32.6 L (39.0-53.0) % MCHC 30.7 L (31.0-37.0) g/dL RDW 15.6 H (11.5-15.5) % Lymphocytes # (Manual) 0.59 L (1.0-4.8) k/uL INR (<1.2) BUN 63 H (9-20) mg/dL Creatinine 4.24 H (0.66-1.25) mg/dL Glucose 108 H (74-99) mg/dL Iron 22 L (65-175) ug/dL TIBC 196 L (228-460) ug/dL Iron Saturation 11.22 L (15.00-50.00) 01/27/18 Range/Units 05:40 RBC (4.30-5.90) m/uL Hgb (13.0-17.5) gm/dL Hct (39.0-53.0) % MCHC (31.0-37.0) g/dL RDW (11.5-15.5) % Lymphocytes # (Manual) (1.0-4.8) k/uL INR 1.2 H (<1.2) BUN (9-20) mg/dL Creatinine (0.66-1.25) mg/dL Glucose (74-99) mg/dL Iron (65-175) ug/dL TIBC (228-460) ug/dL Iron Saturation (15.00-50.00) Assessment and Plan Plan: Assessment: 1. 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 Patient has a right upper extremity fistula which is not being used due to venous leak. Patient has a permacath placed on January 26. 2. Moderate left-sided pleural effusion status post thoracentesis on January 26 with 1.6 L drained. 3. Anemia of chronic kidney disease. Iron deficiency noted. 4. Chronic kidney disease mineral bone disease maintained on calcitriol. 5. Metabolic acidosis maintained on oral sodium bicarbonate. 6. Dyspnea secondary to volume overload. Improving. 7. Systolic CHF with ejection fraction of 45-50%. 8. Hyperphosphatemia secondary to chronic kidney disease. Expect improvement after dialysis. Plan: Continue Lasix 80 mg IV twice daily. Third treatment of hemodialysis tomorrow. Ferrlecit 125 mg IV daily for 3 days. First dose today. Repeat electrolytes, including phosphorus in the morning.
[2018-01-27] MEDS ORDERED: SODIUM FERRIC GLUCONAT-SUCROSE 125 MG in SODIUM CHLORIDE 0.9% 100 ML IVPB SCH (10:00)
[2018-01-27] MEDS: METOPROLOL TARTRATE 12.5 MG TAB PO SCH ×2 (10:07→21:21)
[2018-01-27] MEDS: BRIMONIDINE TARTRATE 0.2% DROPS 5 ML BTL BOTH EYES SCH ×2 (10:07→21:00)
[2018-01-27] MEDS: HEPARIN SODIUM,PORCINE 5,000 UNIT/ML 1 ML VIAL SQ SCH ×2 (10:07→21:00)
[2018-01-27] MEDS: SODIUM BICARBONATE TAB 650 MG TAB PO SCH ×4 (10:07→21:00)
[2018-01-27] MEDS: TAMSULOSIN 0.4 MG CAP.ER.24H PO SCH ×2 (10:07→21:00)
[2018-01-27] MEDS: PANTOPRAZOLE 40 MG TABLET PO SCH (10:07)
--- NOTE | 2018-01-27 12:17 | P.PN ---
Subjective Progress Note Date: 01/27/18 Principal diagnosis: Acute hypoxic respiratory failure secondary to recurrent left-sided pleural effusion. This is a very pleasant 82-year-old gentleman who follows with Dr. Ortiz as his primary care physician. He has a history of chronic renal failure not currently on dialysis him a atrial fibrillation anticoagulant with warfarin, chronic obstructive pulmonary disease, hyperlipidemia, hypertension. He also has a history of recurrent pleural effusions. In 2014 he had a right-sided pleural effusion status post thoracentesis. He also more recently had a left- sided thoracentesis with 2.4 L of bloody effusion removed. The pathology was negative for malignancy. A follow-up computed tomography scan of the chest at that time had revealed small residual left pleural effusion. There is a small area of groundglass opacity in the left lung. Suspected focus of reexpansion alveolar edema. No other abnormalities were noted. No masses or nodules. Total protein 2.8, LDH 251. Today's echocardiogram revealed moderate concentric left ventricular hypertrophy with only mildly impaired left ventricular systolic function with ejection fraction 45-50%. No significant valvular disease. No pulmonary hypertension. The patient is seen today in consultation on the selective care unit. He is awake and alert in no acute distress. He is quite dyspneic on minimal exertion. He is also fatigued and weak. He is maintaining O2 saturations in the mid 90s on 2 L/m per nasal cannula. Current temperature 99.1. Slightly tachycardic remains in atrial fibrillation. White count 3.7. Hemoglobin 10.4. Platelet count 135. Troponin 0.041. ProBNP 17,400. He does have a mature right upper extremity AV fistula placed back in September 2017. BUN 85, creatinine 4.21. INR 2.5. The patient is seen today 01/26/2018 in follow-up on the selective care unit. He is currently resting comfortably in bed. He remains dyspneic on minimal exertion however. He is maintaining O2 saturations in the 90s on room air. He' s been afebrile. Hemodynamically stable. There were unable to access the right upper extremity fistula for hemodialysis yesterday. The plan is for temporary dialysis catheter be placed today and possibly hemodialysis later this afternoon. He was given a dose of vitamin K yesterday and his INR is 1.4. We'll proceed with a left-sided thoracentesis this morning. He count 4.0. Hemoglobin 9.8. Platelet count 148,000. BUN 84. Creatinine 4.82. The patient is seen again today 01/27/2018 in follow-up on the selective care unit. He is awake and alert in no acute distress. He did undergo a left-sided thoracentesis yesterday with 1650 ML's of yellow-colored fluid was removed. He is breathing quite a bit easier today as compared to yesterday. He is maintaining O2 saturations in the 90s on 2 L/m per nasal cannula. He's been afebrile. He will be receiving another hemodialysis treatment tomorrow iron is being replaced. He remains on Lasix 80 mg IV push every 12 hours. White count 3.9. Hemoglobin 10.0. Creatinine 4.24. Objective - Vital Signs Vital signs: Vital Signs Temp 97.5 F L 01/27/18 08:00 Pulse 80 01/27/18 11:05 Resp 18 01/27/18 08:00 BP 88/51 01/27/18 08:00 Pulse Ox 88 L 01/27/18 08:00 Intake & Output 01/26/18 01/27/18 01/27/18 18:59 06:59 18:59 Intake Total 240 10 Output Total 3000 200 Balance -2760 10 -200 Weight 80.3 kg Intake: IV 10 .9 10 Oral 240 Output: Urine 800 200 Other 2200 Other: Voiding Method Urinal Urinal Urinal # Voids 1 # Bowel Movements 0 - Exam - Constitutional General appearance: average body habitus, no acute distress - EENT Eyes: EOMI, PERRLA ENT: hearing grossly normal Ears: bilateral: normal - Neck Neck: normal ROM Carotids: bilateral: upstroke normal Thyroid: bilateral: normal size - Respiratory Respiratory: left: diminished, rales - Cardiovascular Rhythm: irregularly irregular Heart sounds: normal: S1, S2 - Gastrointestinal General gastrointestinal: normal bowel sounds - Integumentary Integumentary: decreased turgor - Neurologic Neurologic: CNII-XII intact - Musculoskeletal Musculoskeletal: generalized weakness - Psychiatric Psychiatric: A&O x's 3, intact judgment & insight - Labs CBC & Chem 7: 01/27/18 05:40 01/27/18 05:40 Labs: Abnormal Lab Results - Last 24 Hours (Table) 01/26/18 01/27/1818 Range/Units 07:06 05:40 05:40 RBC 3.43 L (4.30-5.90) m/uL Hgb 10.0 L (13.0-17.5) gm/dL Hct 32.6 L (39.0-53.0) % MCHC 30.7 L (31.0-37.0) g/dL RDW 15.6 H (11.5-15.5) % Lymphocytes # (Manual) 0.59 L (1.0-4.8) k/uL INR (<1.2) BUN 63 H (9-20) mg/dL Creatinine 4.24 H (0.66-1.25) mg/dL Glucose 108 H (74-99) mg/dL Iron 22 L (65-175) ug/dL TIBC 196 L (228-460) ug/dL Iron Saturation 11.22 L (15.00-50.00) 01/27/18 Range/Units 05:40 RBC (4.30-5.90) m/uL Hgb (13.0-17.5) gm/dL Hct (39.0-53.0) % MCHC (31.0-37.0) g/dL RDW (11.5-15.5) % Lymphocytes # (Manual) (1.0-4.8) k/uL INR 1.2 H (<1.2) BUN (9-20) mg/dL Creatinine (0.66-1.25) mg/dL Glucose (74-99) mg/dL Iron (65-175) ug/dL TIBC (228-460) ug/dL Iron Saturation (15.00-50.00) Assessment and Plan Assessment: Impression: #1 Acute hypoxic respiratory failure secondary to recurrent left-sided pleural effusion. Recent left-sided thoracentesis on 12/28/2017 with 2.4 L of fluid removed. Negative for malignancy. Status post thoracentesis on 01/26/2018 with 1650 MLS removed. Pathology pending. #2 Atrial fibrillation, anticoagulated with warfarin. INR 1.2 today. May resume warfarin from the pulmonary standpoint. No other procedures planned. #3 Mildly impaired left ventricular systolic function with ejection fraction 45- 50%. 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 Right upper extremity fistula placed in September 2017 the venous leak and unable to be used. Permacath was placed and he is receiving renal replacement therapy #5 Anemia of chronic disease. Current hemoglobin 10.0. #6 Hypertension. #7 Hyperlipidemia. #8 Previous history of right sided pleural effusion with subsequent thoracentesis in 2014. Plan: The patient was seen and evaluated by Dr. Ortiz. He is now status post thoracentesis with 1650 MLS removed. He did receive hemodialysis again today and the plan is for another treatment tomorrow. We'll continue to follow. I, the cosigning physician, performed a history & physical examination of the patient. Lungs sounds with few scattered rhonchi, crackles in the left posterior base. Diminished.. Maintaining good O2 saturations in the 90s on 2 L /m per nasal cannula. I discussed the assessment and plan of care with my nurse practitioner, Charity Diallo. I attest to the above note as dictated by her.
--- NOTE | 2018-01-27 13:52 | P.PN ---
Subjective Progress Note Date: 01/27/18 This is a pleasant 82-year-old gentleman who has a history of chronic renal failure currently on dialysis, persistent atrial fibrillation, on Coumadin for anticoagulation which was held because of thoracentesis, COPD, hyperlipidemia, hypertension, history of recurrent pleural effusions. He presented to the hospital on this occasion with symptoms of shortness of breath. Echocardiogram with Doppler study revealed moderate concentric LVH with only mildly impaired left ventricular systolic function with ejection fraction of 45-50% with no significant valvular disease and no pulmonary hypertension. Patient did undergo a thoracentesis on the left side with 650 mils of yellow colored fluid which was removed. He is breathing significantly better overall. Maintaining oxygen saturation in the 90s, he has been afebrile. Patient will be receiving hemodialysis tomorrow, his iron is currently being replaced and he continues to be on IV diuretics. White blood cell count 3.9, hemoglobin 10.0, platelet count 156. INR is 1.2, sodium 139, potassium 4.3, BUN 63 and creatinine 4.2. Heart rate today is in the 80s. Blood pressure 98/50. Objective - Vital Signs Vital signs: Vital Signs Temp 97.5 F L 01/27/18 08:00 Pulse 80 01/27/18 11:05 Resp 18 01/27/18 08:00 BP 88/51 01/27/18 08:00 Pulse Ox 88 L 01/27/18 08:00 Intake & Output 01/26/18 01/27/18 01/27/18 18:59 06:59 18:59 Intake Total 240 10 360 Output Total 3000 200 Balance -2760 10 160 Weight 80.3 kg Intake: IV 10 .9 10 Oral 240 360 Output: Urine 800 200 Other 2200 Other: Voiding Method Urinal Urinal Urinal # Voids 1 # Bowel Movements 0 - Exam PHYSICAL EXAMINATION: GENERAL: 82-year-old gentleman in no acute distress at the time of my examination HEENT: Head is atraumatic, normocephalic. Pupils equal, round. Sclera anicteric. Conjunctiva are clear. Mucous membranes of the mouth are moist. Neck is supple. There is no elevated jugular venous pressure.No carotid bruit is heard. HEART EXAMINATION: Heart S1-S2 irregularly irregular CHEST EXAMINATION: Lungs reveal diminished air entry bilaterally with rales to the bases. ABDOMEN: Soft, nontender. Bowel sounds are heard. No organomegaly noted. EXTREMITIES: 2+ peripheral pulses with evidence of peripheral edema and no calf tenderness noted. NEUROLOGIC patient is awake, alert and oriented X3. . - Labs CBC & Chem 7: 01/27/18 05:40 01/27/18 05:40 Labs: Abnormal Lab Results - Last 24 Hours (Table) 01/26/18 01/27/18 01/27/18 Range/Units 07:06 05:40 05:40 RBC 3.43 L (4.30-5.90) m/uL Hgb 10.0 L (13.0-17.5) gm/dL Hct 32.6 L (39.0-53.0) % MCHC 30.7 L (31.0-37.0) g/dL RDW 15.6 H (11.5-15.5) % Lymphocytes # (Manual) 0.59 L (1.0-4.8) k/uL INR (<1.2) BUN 63 H (9-20) mg/dL Creatinine 4.24 H (0.66-1.25) mg/dL Glucose 108 H (74-99) mg/dL Iron 22 L (65-175) ug/dL TIBC 196 L (228-460) ug/dL Iron Saturation 11.22 L (15.00-50.00) 01/27/18 Range/Units 05:40 RBC (4.30-5.90) m/uL Hgb (13.0-17.5) gm/dL Hct (39.0-53.0) % MCHC (31.0-37.0) g/dL RDW (11.5-15.5) % Lymphocytes # (Manual) (1.0-4.8) k/uL INR 1.2 H (<1.2) BUN (9-20) mg/dL Creatinine (0.66-1.25) mg/dL Glucose (74-99) mg/dL Iron (65-175) ug/dL TIBC (228-460) ug/dL Iron Saturation (15.00-50.00) Assessment and Plan Plan: Impression: #1 Acute hypoxic respiratory failure secondary to recurrent left-sided pleural effusion. Recent left-sided thoracentesis on 12/28/2017 with 2.4 L of fluid removed. Negative for malignancy. Status post thoracentesis on 01/26/2018 with 1650 MLS removed. Pathology pending. #2 Atrial fibrillation, anticoagulated with warfarin. INR 1.2 today. #3 Mildly impaired left ventricular systolic function with ejection fraction 45- 50%. 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 #6 Hypertension. #7 Hyperlipidemia. #8 Previous history of right sided pleural effusion with subsequent thoracentesis in 2014. Plan Will resume the Coumadin, give 5 mg today. Continue the rest of the patient's medications.Daily PT, INR. DNP note has been reviewed, I agree with a documented findings and plan of care. Patient was seen and examined.
[2018-01-27] MEDS ORDERED: WARFARIN 5 MG TAB PO ONE (18:00)
[2018-01-27] MEDS: FUROSEMIDE 10 MG/ML 10 ML VIAL IV SCH (19:06)
[2018-01-27] MEDS: MELATONIN 5 MG TABLET PO SCH (21:00)
[2018-01-27] MEDS: CHOLECALCIFEROL 1,000 UNIT TAB PO SCH (21:00)
[2018-01-27] MEDS: FERROUS SULFATE 325 MG TAB PO SCH (21:00)
[2018-01-27] MEDS: ALLOPURINOL 100 MG TAB PO SCH (21:00)
[2018-01-27] MEDS: rOPINIRole HCL 4 MG TABLET PO SCH (21:00)
[2018-01-27] MEDS: MULTIVITAMINS, THERA 1 EACH TAB PO SCH (21:00)
[2018-01-27] MEDS: TIMOLOL 0.5% OPHTH DROPS 5 ML BTL BOTH EYES SCH (21:01)
[2018-01-27] MEDS: SODIUM FERRIC GLUCONAT-SUCROSE 125 MG in SODIUM CHLORIDE 0.9% 100 ML IVPB SCH (21:01)
[2018-01-28 06:13] LABS: Basophils % (A) 0 %; Eosinophils # (A) 0.2 k/uL (0-0.7); Eosinophils % (A) 5 %; HCT 31.8 % (39.0-53.0); HGB 9.7 gm/dL (13.0-17.5); Hypochromasia Moderate; Lymphocytes # (A) 0.8 k/uL (1.0-4.8); Lymphocytes % (A) 20 %; MCH 28.9 pg (25.0-35.0); MCHC 30.6 g/dL (31.0-37.0); MCV 94.4 fL (80.0-100.0); Mean Platelet Volume 7.9; Monocytes # (A) 0.6 k/uL (0-1.0); Monocytes % (A) 14 %; Neutrophils # (A) 2.4 k/uL (1.3-7.7); Neutrophils % (A) 57 %; Platelet Count 142 k/uL (150-450); RBC 3.37 m/uL (4.30-5.90); RDW 15.5 % (11.5-15.5); WBC 4.1 k/uL (3.8-10.6)
[2018-01-28 06:20] LABS: INR 1.2 (<1.2); Prothrombin Time 11.1 sec (9.0-12.0)
[2018-01-28 06:26] LABS: Calcium 8.5 mg/dL (8.4-10.2); Potassium 3.8 mmol/L (3.5-5.1)
[2018-01-28] MEDS: PANTOPRAZOLE 40 MG TABLET PO SCH (07:04)
[2018-01-28] MEDS: FUROSEMIDE 10 MG/ML 10 ML VIAL IV SCH ×2 (07:04→17:04)
[2018-01-28] MEDS: IPRATROPIUM-ALBUTEROL 3 ML NEB INHALATION SCH ×4 (08:35→19:17)
[2018-01-28] MEDS: BUDESONIDE 1 MG/2 ML NEBU INHALATION SCH ×2 (08:35→19:16)
[2018-01-28] MEDS: FORMOTEROL FUMARATE 20 MCG/2 ML NEBU INHALATION SCH ×2 (08:35→19:16)
[2018-01-28] MEDS: TAMSULOSIN 0.4 MG CAP.ER.24H PO SCH ×2 (08:41→19:53)
[2018-01-28] MEDS: HEPARIN SODIUM,PORCINE 5,000 UNIT/ML 1 ML VIAL SQ SCH ×2 (08:41→19:51)
[2018-01-28] MEDS: SODIUM BICARBONATE TAB 650 MG TAB PO SCH ×4 (08:41→19:53)
--- NOTE | 2018-01-28 10:54 | P.PN ---
Subjective Progress Note Date: 01/27/18 Personal being dictated for Dr. Delarosa. Interval history: This a 82-year-old gentleman admitted with shortness of breath , multifactorial, possible CHF exacerbation, COPD exacerbation, recurrent left pleural effusion, end-stage renal disease and multiple other medical issues. Creatinine 4.21. Dr. Carr to evaluate /clear fistula for initiation of hemodialysis. Lasix IV push increased as per nephrology. Maintaining O2 sats in the mid 90s on 2 L nasal cannula. T-max 99.1. INR 2.4. Telemetry atrial fibrillation. 01/26/2018 maintained on Lasix IV push. Creatinine 4.82. hemodialysis attempted via AV fistula, terminated for potential venous leak. Scheduled for permacath placement today. INR 1.4, scheduled for left thoracentesis with pulmonary today. Tired appearing. Denies chest pain, palpitations. 01/27/2018 permacath placed yesterday, underwent HD again this morning. Creatinine 4.24. Underwent left thoracentesis yesterday with what 1.6 L of yellow pleural fluid drained, tolerated procedure well. Maintained on Lasix IV push, IV Ferrliect. Breathing improving, maintaining O2 sats in the 90s on 2 L nasal cannula. Afebrile, WBC 3.9. INR 1.2. Objective - Vital Signs Vital signs: Vital Signs Temp 97.5 F L 01/27/18 08:00 Pulse 78 01/27/18 15:38 Resp 18 01/27/18 08:00 BP 88/51 01/27/18 08:00 Pulse Ox 88 L 01/27/18 08:00 Intake & Output 01/26/18 01/27/18 01/27/18 18:59 06:59 18:59 Intake Total 240 10 360 Output Total 3000 200 Balance -2760 10 160 Weight 80.3 kg 80.3 kg Intake: IV 10 .9 10 Oral 240 360 Output: Urine 800 200 Other 2200 Other: Voiding Method Urinal Urinal Urinal # Voids 1 # Bowel Movements 0 - Exam PHYSICAL EXAM: VITAL SIGNS: As above GENERAL: Sitting up in bed, respiratory effort increased, tired appearing HEENT: Conjunctivae normal. eyes normal. NECK: no JVD. No thyroid enlargement. No LNs CARDIOVASCULAR: S1, S2 muffled. Irregular, No murmur RESPIRATION: Breath sounds diminished in the bases. Bilateral crackles. ABDOMEN: Soft, distended, nontender . No guarding. no masses palpable. Bowel sounds heard. LEGS: Bilateral leg edema, right greater than left. PSYCHIATRY: Alert and oriented -3, mood and affect normal. NERVOUS SYSTEM: Cranial N 2-12 grossly normal. Moves all 4 limbs. Diffuse weakness No focal deficits. Skin: no ulcer no rash Lymphatic system. No LN neck axilla or groin. - Labs CBC & Chem 7: 01/28/18 05:37 01/28/18 05:37 Labs: Abnormal Lab Results - Last 24 Hours (Table) 01/27/18 01/27/18 01/27/18 Range/Units 05:40 05:40 05:40 RBC 3.43 L (4.30-5.90) m/uL Hgb 10.0 L (13.0-17.5) gm/dL Hct 32.6 L (39.0-53.0) % MCHC 30.7 L (31.0-37.0) g/dL RDW 15.6 H (11.5-15.5) % Lymphocytes # (Manual) 0.59 L (1.0-4.8) k/uL INR 1.2 H (<1.2) BUN 63 H (9-20) mg/dL Creatinine 4.24 H (0.66-1.25) mg/dL Glucose 108 H (74-99) mg/dL Assessment and Plan Assessment: -Shortness of breath, multifactorial -acute on chronic exacerbation CHF, systolic dysfunction, EF 40-45%, secondary to hypervolemia -Acute COPD exacerbation -Recurrent left pleural effusion, recent left-sided thoracentesis - negative for malignancy. Status post thoracentesis 01/26, pathology pending. 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 PermCath placed, secondary to Fistula venous leak, hemodialysis initiated. -Coumadin Monitoring -Chronic Atrial fibrillation -Hypertension -Hyperlipidemia -Anemia of chronic disease -Metabolic acidosis Plan: Continue on current medication regime , oral sodium bicarb, monitoring and symptomatic treatment. Maintain nebulized bronchodilators. Hemodialysis scheduled for tomorrow.Resume Coumadin. CLose Monitoring of renal function, electrolytes, PT/INR with repeat labs ordered for a.m. increase ambulation as tolerated Prognosis guarded given multiple complex medical issues. The impression and plan of care has been dictated as directed. : I performed a history and examination of this patient, discussed the same with the dictator. I agree with the dictator's note ,documented as a scribe. Any additional findings or plans will be noted.
--- NOTE | 2018-01-28 11:00 | P.PN ---
Subjective Progress Note Date: 01/28/18 Personal being dictated for Dr. Delarosa. Interval history: This a 82-year-old gentleman admitted with shortness of breath , multifactorial, possible CHF exacerbation, COPD exacerbation, recurrent left pleural effusion, end-stage renal disease and multiple other medical issues. Creatinine 4.21. Dr. Carr to evaluate /clear fistula for initiation of hemodialysis. Lasix IV push increased as per nephrology. Maintaining O2 sats in the mid 90s on 2 L nasal cannula. T-max 99.1. INR 2.4. Telemetry atrial fibrillation. 01/26/2018 maintained on Lasix IV push. Creatinine 4.82. hemodialysis attempted via AV fistula, terminated for potential venous leak. Scheduled for permacath placement today. INR 1.4, scheduled for left thoracentesis with pulmonary today. Tired appearing. Denies chest pain, palpitations. 01/27/2018 permacath placed yesterday, underwent HD again this morning. Creatinine 4.24. Underwent left thoracentesis yesterday with what 1.6 L of yellow pleural fluid drained, tolerated procedure well. Maintained on Lasix IV push, IV Ferrliect. Breathing improving, maintaining O2 sats in the 90s on 2 L nasal cannula. Afebrile, WBC 3.9. INR 1.2. 01/28/2018 scheduled for dialysis today. Creatinine 3.83. Diuresing on Lasix IV push, 24-hour I&O reflecting a decrease in weight. Breathing continues to improve, maintaining O2 sats in the mid 90s on 2 L nasal cannula. Afebrile, WBC 4.1, hemoglobin 9.7. INR 1.2. Objective - Vital Signs Vital signs: Vital Signs Temp 98.8 F 01/28/18 08:00 Pulse 102 H 01/28/18 08:57 Resp 20 01/28/18 08:00 BP 106/55 01/28/18 08:00 Pulse Ox 95 01/28/18 08:35 Intake & Output 01/27/18 01/28/18 01/28/18 18:59 06:59 18:59 Intake Total 1320 960 Output Total 200 350 Balance 1120 -350 960 Weight 80.3 kg 78 kg Intake: Oral 1320 960 Output: Urine 200 350 Other: Voiding Method Urinal Urinal Urinal # Voids 1 1 1 # Bowel Movements 0 1 - Exam PHYSICAL EXAM: VITAL SIGNS: As above GENERAL: Sitting up in bed, respiratory effort increased, tired appearing HEENT: Conjunctivae normal. eyes normal. NECK: no JVD. No thyroid enlargement. No LNs CARDIOVASCULAR: S1, S2 muffled. Irregular, No murmur RESPIRATION: Breath sounds diminished in the bases. Bilateral crackles. ABDOMEN: Soft, distended, nontender . No guarding. no masses palpable. Bowel sounds heard. LEGS: Bilateral leg edema, right greater than left. PSYCHIATRY: Alert and oriented -3, mood and affect normal. NERVOUS SYSTEM: Cranial N 2-12 grossly normal. Moves all 4 limbs. Diffuse weakness No focal deficits. Skin: no ulcer no rash Lymphatic system. No LN neck axilla or groin. - Labs CBC & Chem 7: 01/28/18 05:37 01/28/18 05:37 Labs: Abnormal Lab Results - Last 24 Hours (Table) 01/28/18 01/28/18 01/28/18 Range/Units 05:37 05:37 05:37 RBC 3.37 L (4.30-5.90) m/uL Hgb 9.7 L (13.0-17.5) gm/dL Hct 31.8 L (39.0-53.0) % MCHC 30.6 L (31.0-37.0) g/dL Plt Count 142 L (150-450) k/uL Lymphocytes # 0.8 L (1.0-4.8) k/uL INR 1.2 H (<1.2) BUN 46 H (9-20) mg/dL Creatinine 3.83 H (0.66-1.25) mg/dL Glucose 106 H (74-99) mg/dL Assessment and Plan Assessment: -Shortness of breath, multifactorial -acute on chronic exacerbation CHF, systolic dysfunction, EF 40-45%, secondary to hypervolemia -Acute COPD exacerbation -Recurrent left pleural effusion, recent left-sided thoracentesis - negative for malignancy. Status post thoracentesis 01/26, pathology pending. 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 PermCath placed, secondary to Fistula venous leak, hemodialysis initiated. -Coumadin Monitoring -Chronic Atrial fibrillation -Hypertension -Hyperlipidemia -Anemia of chronic disease -Metabolic acidosis Plan: Continue on current medication regime , oral sodium bicarb, monitoring and symptomatic treatment. Maintain nebulized bronchodilators. Hemodialysis today.Coumadin dosing as per cardiology. PT/OT .CLose Monitoring of renal function, electrolytes, PT/INR with repeat labs ordered for a.m. increase ambulation as tolerated Prognosis guarded given multiple complex medical issues. The impression and plan of care has been dictated as directed. : I performed a history and examination of this patient, discussed the same with the dictator. I agree with the dictator's note ,documented as a scribe. Any additional findings or plans will be noted.
--- NOTE | 2018-01-28 11:11 | P.PN ---
Subjective Progress Note Date: 01/28/18 Principal diagnosis: Acute hypoxic respiratory failure secondary to recurrent left-sided pleural effusion. This is a very pleasant 82-year-old gentleman who follows with Dr. Ortiz as his primary care physician. He has a history of chronic renal failure not currently on dialysis him a atrial fibrillation anticoagulant with warfarin, chronic obstructive pulmonary disease, hyperlipidemia, hypertension. He also has a history of recurrent pleural effusions. In 2014 he had a right-sided pleural effusion status post thoracentesis. He also more recently had a left- sided thoracentesis with 2.4 L of bloody effusion removed. The pathology was negative for malignancy. A follow-up computed tomography scan of the chest at that time had revealed small residual left pleural effusion. There is a small area of groundglass opacity in the left lung. Suspected focus of reexpansion alveolar edema. No other abnormalities were noted. No masses or nodules. Total protein 2.8, LDH 251. Today's echocardiogram revealed moderate concentric left ventricular hypertrophy with only mildly impaired left ventricular systolic function with ejection fraction 45-50%. No significant valvular disease. No pulmonary hypertension. The patient is seen today in consultation on the selective care unit. He is awake and alert in no acute distress. He is quite dyspneic on minimal exertion. He is also fatigued and weak. He is maintaining O2 saturations in the mid 90s on 2 L/m per nasal cannula. Current temperature 99.1. Slightly tachycardic remains in atrial fibrillation. White count 3.7. Hemoglobin 10.4. Platelet count 135. Troponin 0.041. ProBNP 17,400. He does have a mature right upper extremity AV fistula placed back in September 2017. BUN 85, creatinine 4.21. INR 2.5. The patient is seen today 01/26/2018 in follow-up on the selective care unit. He is currently resting comfortably in bed. He remains dyspneic on minimal exertion however. He is maintaining O2 saturations in the 90s on room air. He' s been afebrile. Hemodynamically stable. There were unable to access the right upper extremity fistula for hemodialysis yesterday. The plan is for temporary dialysis catheter be placed today and possibly hemodialysis later this afternoon. He was given a dose of vitamin K yesterday and his INR is 1.4. We'll proceed with a left-sided thoracentesis this morning. He count 4.0. Hemoglobin 9.8. Platelet count 148,000. BUN 84. Creatinine 4.82. The patient is seen again today 01/27/2018 in follow-up on the selective care unit. He is awake and alert in no acute distress. He did undergo a left-sided thoracentesis yesterday with 1650 ML's of yellow-colored fluid was removed. He is breathing quite a bit easier today as compared to yesterday. He is maintaining O2 saturations in the 90s on 2 L/m per nasal cannula. He's been afebrile. He will be receiving another hemodialysis treatment tomorrow iron is being replaced. He remains on Lasix 80 mg IV push every 12 hours. White count 3.9. Hemoglobin 10.0. Creatinine 4.24. The patient is seen again today 2017 in follow-up on the selective care unit. He is more awake and alert today. Feels a bit stronger. Able lay flat in bed without any significant orthopnea. Denies any worsening shortness of breath, cough or congestion. He is maintaining good O2 saturations in the 90s on 2 L/m per nasal cannula. He's been afebrile. Hemodynamically stable. Pleural fluid was negative for malignancy. White count 4.1. Hemoglobin 9.7. Creatinine 3.83. Due for hemodialysis today. Objective - Vital Signs Vital signs: Vital Signs Temp 98.8 F 01/28/18 08:00 Pulse 102 H 01/28/18 08:57 Resp 20 01/28/18 08:00 BP 106/55 01/28/18 08:00 Pulse Ox 95 01/28/18 08:35 Intake & Output 01/27/18 01/28/18 01/28/18 18:59 06:59 18:59 Intake Total 1320 960 Output Total 200 350 Balance 1120 -350 960 Weight 80.3 kg 78 kg Intake: Oral 1320 960 Output: Urine 200 350 Other: Voiding Method Urinal Urinal Urinal # Voids 1 1 1 # Bowel Movements 0 1 - Exam - Constitutional General appearance: average body habitus, no acute distress. Feeling better today as compared to yesterday. - EENT Eyes: EOMI, PERRLA ENT: hearing grossly normal Ears: bilateral: normal - Neck Neck: normal ROM Carotids: bilateral: upstroke normal Thyroid: bilateral: normal size - Respiratory Respiratory: left: diminished, rales - Cardiovascular Rhythm: irregularly irregular Heart sounds: normal: S1, S2 - Gastrointestinal General gastrointestinal: normal bowel sounds - Integumentary Integumentary: decreased turgor - Neurologic Neurologic: CNII-XII intact - Musculoskeletal Musculoskeletal: generalized weakness - Psychiatric Psychiatric: A&O x's 3, intact judgment & insight - Labs CBC & Chem 7: 01/28/18 05:37 01/28/18 05:37 Labs: Abnormal Lab Results - Last 24 Hours (Table) 01/28/18 01/28/18 01/28/18 Range/Units 05:37 05:37 05:37 RBC 3.37 L (4.30-5.90) m/uL Hgb 9.7 L (13.0-17.5) gm/dL Hct 31.8 L (39.0-53.0) % MCHC 30.6 L (31.0-37.0) g/dL Plt Count 142 L (150-450) k/uL Lymphocytes # 0.8 L (1.0-4.8) k/uL INR 1.2 H (<1.2) BUN 46 H (9-20) mg/dL Creatinine 3.83 H (0.66-1.25) mg/dL Glucose 106 H (74-99) mg/dL Assessment and Plan Assessment: Impression: #1 Acute hypoxic respiratory failure secondary to recurrent left-sided pleural effusion. Recent left-sided thoracentesis on 12/28/2017 with 2.4 L of fluid removed. Negative for malignancy. Status post thoracentesis on 01/26/2018 with 1650 MLS removed. Pathology again negative for malignancy. #2 Atrial fibrillation, anticoagulated with warfarin. INR 1.2 today. Warfarin has been resumed. #3 Mildly impaired left ventricular systolic function with ejection fraction 45- 50%. 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 Right upper extremity fistula placed in September 2017 the venous leak and unable to be used. Permacath was placed and he is receiving renal replacement therapy #5 Anemia of chronic disease. Current hemoglobin 9.7. #6 Hypertension. #7 Hyperlipidemia. #8 Previous history of right sided pleural effusion with subsequent thoracentesis in 2014. Plan: The patient was seen and evaluated by Dr. Ortiz. Pleural fluid analysis negative for malignancy. The patient is a bit stronger today as compared to yesterday. No worsening pulmonary complaints. Plan is for hemodialysis again today. We'll continue with the current treatment plan. We'll continue to follow. I, the cosigning physician, performed a history & physical examination of the patient. Lungs sounds with few crackles in the left posterior base. Diminished. Maintaining good O2 saturations in the 90s on 2 L/m per nasal cannula. I discussed the assessment and plan of care with my nurse practitioner , Charity Diallo. I attest to the above note as dictated by her.
--- NOTE | 2018-01-28 12:35 | P.PN ---
Subjective Patient is seen in follow-up for chronic kidney disease stage V. 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 Hemodialysis was attempted initially using his right upper extremity AV fistula but the treatment was terminated due to concern for venous leak. Currently is resting in bed. Still dyspneic but improving. No vomiting or diarrhea. He had a permacath placed on January 26 and underwent second treatment of hemodialysis this morning which he tolerated well. Currently seen while undergoing hemodialysis. He also underwent a left-sided thoracentesis on January 26 and had about 1.6 L drained. Vital signs are stable. General: The patient appeared well nourished and normally developed. HEENT: Head exam is unremarkable. Neck is without jugular venous distension. LUNGS: Breath sounds decreased. HEART: Rate and Rhythm are regular. First and second heart sounds normal. No murmurs, rubs or gallops. ABDOMEN: Abdominal exam reveals normal bowel sounds. Non-tender and non- distended. No evidence of peritonitis. EXTREMITITES: No clubbing, cyanosis, or edema. Objective - Vital Signs Vital signs: Vital Signs Temp 98.8 F 01/28/18 08:00 Pulse 108 H 01/28/18 12:12 Resp 20 01/28/18 08:00 BP 106/55 01/28/18 08:00 Pulse Ox 95 01/28/18 08:35 Intake & Output 01/27/18 01/28/18 01/28/18 18:59 06:59 18:59 Intake Total 1320 960 Output Total 200 350 Balance 1120 -350 960 Weight 80.3 kg 78 kg Intake: Oral 1320 960 Output: Urine 200 350 Other: Voiding Method Urinal Urinal Urinal # Voids 1 1 1 # Bowel Movements 0 1 - Labs CBC & Chem 7: 01/28/18 05:37 01/28/18 05:37 Labs: Abnormal Lab Results - Last 24 Hours (Table) 01/28/18 01/28/18 01/28/18 Range/Units 05:37 05:37 05:37 RBC 3.37 L (4.30-5.90) m/uL Hgb 9.7 L (13.0-17.5) gm/dL Hct 31.8 L (39.0-53.0) % MCHC 30.6 L (31.0-37.0) g/dL Plt Count 142 L (150-450) k/uL Lymphocytes # 0.8 L (1.0-4.8) k/uL INR 1.2 H (<1.2) BUN 46 H (9-20) mg/dL Creatinine 3.83 H (0.66-1.25) mg/dL Glucose 106 H (74-99) mg/dL Assessment and Plan Plan: Assessment: 1. 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 Patient has a right upper extremity fistula which is not being used due to venous leak. Patient has a permacath placed on January 26. 2. Moderate left-sided pleural effusion status post thoracentesis on January 26 with 1.6 L drained. 3. Anemia of chronic kidney disease. Iron deficiency noted. 4. Chronic kidney disease mineral bone disease maintained on calcitriol. 5. Metabolic acidosis maintained on oral sodium bicarbonate. 6. Dyspnea secondary to volume overload. Improving. 7. Systolic CHF with ejection fraction of 45-50%. 8. Hyperphosphatemia secondary to chronic kidney disease. Expect improvement after dialysis. Plan: Continue Lasix 80 mg IV twice daily. Currently sitting while undergoing hemodialysis. Another treatment tomorrow. Ferrlecit 125 mg IV daily for 3 days. Second dose today. Repeat electrolytes, including phosphorus in the morning. Outpatient hemodialysis set up.
--- NOTE | 2018-01-28 14:10 | XR ---
EXAMINATION TYPE: XR chest 1V portable DATE OF EXAM: 01/28/2018 HISTORY: Shortness of breath. COMPARISON: 01/26/2018 TECHNIQUE: Single view of the chest is submitted. FINDINGS: Demonstrated are scattered senescent parenchymal change. Progressive Left perihilar and left basilar infiltrate with pleural effusion. Central venous line unc hanged in position. The heart is stable. Hilar and mediastinal structures are within normal limits. Degenerative changes are seen of the dorsal spine. IMPRESSION: 1. Progressive Left perihilar and left basilar infiltrate with pleural effusion.
[2018-01-28] MEDS: BRIMONIDINE TARTRATE 0.2% DROPS 5 ML BTL BOTH EYES SCH ×2 (16:09→19:51)
[2018-01-28] MEDS: METOPROLOL TARTRATE 12.5 MG TAB PO SCH ×2 (16:09→19:52)
[2018-01-28] MEDS ORDERED: WARFARIN 5 MG TAB PO ONE (18:00)
[2018-01-28] MEDS: MELATONIN 5 MG TABLET PO SCH (19:50)
[2018-01-28] MEDS: TIMOLOL 0.5% OPHTH DROPS 5 ML BTL BOTH EYES SCH (19:51)
[2018-01-28] MEDS: CHOLECALCIFEROL 1,000 UNIT TAB PO SCH (19:51)
[2018-01-28] MEDS: ALLOPURINOL 100 MG TAB PO SCH (19:51)
[2018-01-28] MEDS: FERROUS SULFATE 325 MG TAB PO SCH (19:51)
[2018-01-28] MEDS: MULTIVITAMINS, THERA 1 EACH TAB PO SCH (19:52)
[2018-01-28] MEDS: rOPINIRole HCL 4 MG TABLET PO SCH (19:52)
[2018-01-28] MEDS: SODIUM FERRIC GLUCONAT-SUCROSE 125 MG in SODIUM CHLORIDE 0.9% 100 ML IVPB SCH (21:25)
[2018-01-29 05:59] LABS: HCT 30.8 % (39.0-53.0); HGB 9.6 gm/dL (13.0-17.5); Hypochromasia Moderate; MCH 29.6 pg (25.0-35.0); MCHC 31.1 g/dL (31.0-37.0); MCV 95.1 fL (80.0-100.0); Mean Platelet Volume 7.8; Platelet Count 124 k/uL (150-450); RBC 3.24 m/uL (4.30-5.90); RDW 15.6 % (11.5-15.5); WBC 4.6 k/uL (3.8-10.6)
[2018-01-29 06:03] LABS: INR 1.2 (<1.2); Prothrombin Time 11.2 sec (9.0-12.0)
[2018-01-29 06:09] LABS: Calcium 8.6 mg/dL (8.4-10.2); Phosphorus 3.4 mg/dL (2.5-4.5); Potassium 3.6 mmol/L (3.5-5.1)
[2018-01-29] MEDS: FUROSEMIDE 10 MG/ML 10 ML VIAL IV SCH ×2 (06:28→17:32)
[2018-01-29] MEDS: PANTOPRAZOLE 40 MG TABLET PO SCH (06:29)
[2018-01-29 06:30] LABS: Band Neutrophils % 2 %; Eosinophils # (M) 0.28 k/uL (0-0.7); Lymphocytes # (M) 0.97 k/uL (1.0-4.8); Neutrophils % (M) 58 %; Nucleated Red Blood Cells 0 /100 WBC (0-0); Total Cells Counted 100
--- NOTE | 2018-01-29 07:56 | P.PN ---
Subjective Patient is seen in follow-up for chronic kidney disease stage V. 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 Hemodialysis was attempted initially using his right upper extremity AV fistula but the treatment was terminated due to concern for venous leak. Currently is resting in bed. Still dyspneic but improving. No vomiting or diarrhea. He had a permacath placed on January 26 and underwent third treatment of hemodialysis yesterday morning which he tolerated well. Currently seen while undergoing hemodialysis. He also underwent a left-sided thoracentesis on January 26 and had about 1.6 L drained. Vital signs are stable. General: The patient appeared well nourished and normally developed. HEENT: Head exam is unremarkable. Neck is without jugular venous distension. LUNGS: Breath sounds decreased. HEART: Rate and Rhythm are regular. First and second heart sounds normal. No murmurs, rubs or gallops. ABDOMEN: Abdominal exam reveals normal bowel sounds. Non-tender and non- distended. No evidence of peritonitis. EXTREMITITES: No clubbing, cyanosis, or edema. Objective - Vital Signs Vital signs: Vital Signs Temp 97.3 F L 01/28/18 15:59 Pulse 112 H 01/29/18 04:00 Resp 18 01/29/18 04:00 BP 89/50 01/29/18 06:28 Pulse Ox 97 01/29/18 04:00 Intake & Output 01/28/18 01/29/18 01/29/18 18:59 06:59 18:59 Intake Total 1420 600 Output Total 0 0 Balance 1420 600 Weight 80.5 kg Intake: Oral 1420 600 Output: Urine 0 0 Other: Voiding Method Urinal Urinal # Voids 1 0 # Bowel Movements 1 1 - Labs CBC & Chem 7: 01/29/18 05:14 01/29/18 05:14 Labs: Abnormal Lab Results - Last 24 Hours (Table) 01/29/18 01/29/18 01/29/18 Range/Units 05:14 05:14 05:14 RBC 3.24 L (4.30-5.90) m/uL Hgb 9.6 L (13.0-17.5) gm/dL Hct 30.8 L (39.0-53.0) % RDW 15.6 H (11.5-15.5) % Plt Count 124 L (150-450) k/uL Lymphocytes # (Manual) 0.97 L (1.0-4.8) k/uL INR 1.2 H (<1.2) Sodium 135 L (137-145) mmol/L BUN 36 H (9-20) mg/dL Creatinine 3.07 H (0.66-1.25) mg/dL Assessment and Plan Plan: Assessment: 1. 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 Patient has a right upper extremity fistula which is not being used due to venous leak. Patient has a permacath placed on January 26. 2. Moderate left-sided pleural effusion status post thoracentesis on January 26 with 1.6 L drained. 3. Anemia of chronic kidney disease. Iron deficiency noted. 4. Chronic kidney disease mineral bone disease maintained on calcitriol. 5. Metabolic acidosis maintained on oral sodium bicarbonate. Resolved. 6. Dyspnea secondary to volume overload. Improving. 7. Systolic CHF with ejection fraction of 45-50%. 8. Hyperphosphatemia secondary to chronic kidney disease. Improved with dialysis. Plan: Continue Lasix 80 mg IV twice daily. Currently sitting while undergoing hemodialysis. Next treatment on Wednesday. Ferrlecit 125 mg IV daily for 3 days. Third dose today. Outpatient hemodialysis has been set up. Discontinue sodium bicarbonate.
[2018-01-29] MEDS ORDERED: MIDODRINE 5 MG TAB PO STA (08:07)
[2018-01-29] MEDS: HEPARIN SODIUM,PORCINE 5,000 UNIT/ML 1 ML VIAL SQ SCH ×2 (08:09→20:28)
[2018-01-29] MEDS: BRIMONIDINE TARTRATE 0.2% DROPS 5 ML BTL BOTH EYES SCH ×2 (08:09→20:27)
[2018-01-29] MEDS: TAMSULOSIN 0.4 MG CAP.ER.24H PO SCH ×2 (08:09→20:29)
[2018-01-29] MEDS: METOPROLOL TARTRATE 12.5 MG TAB PO SCH ×2 (08:10→20:28)
[2018-01-29] MEDS: FORMOTEROL FUMARATE 20 MCG/2 ML NEBU INHALATION SCH ×2 (08:54→20:10)
[2018-01-29] MEDS: BUDESONIDE 1 MG/2 ML NEBU INHALATION SCH ×2 (08:54→20:10)
[2018-01-29] MEDS: IPRATROPIUM-ALBUTEROL 3 ML NEB INHALATION SCH ×4 (08:54→20:10)
[2018-01-29] MEDS: MIDODRINE 5 MG TAB PO SCH ×2 (12:16→17:32)
--- NOTE | 2018-01-29 12:19 | P.PN ---
Subjective This a 82-year-old gentleman admitted with shortness of breath, multifactorial, possible CHF exacerbation, COPD exacerbation, recurrent left pleural effusion, end-stage renal disease and multiple other medical issues. Creatinine 4.21. Dr. Carr to evaluate /clear fistula for initiation of hemodialysis. Lasix IV push increased as per nephrology. Maintaining O2 sats in the mid 90s on 2 L nasal cannula. T-max 99.1. INR 2.4. Telemetry atrial fibrillation. 01/26/2018 maintained on Lasix IV push. Creatinine 4.82. hemodialysis attempted via AV fistula, terminated for potential venous leak. Scheduled for permacath placement today. INR 1.4, scheduled for left thoracentesis with pulmonary today. Tired appearing. Denies chest pain, palpitations. 01/27/2018 permacath placed yesterday, underwent HD again this morning. Creatinine 4.24. Underwent left thoracentesis yesterday with what 1.6 L of yellow pleural fluid drained, tolerated procedure well. Maintained on Lasix IV push, IV Ferrliect. Breathing improving, maintaining O2 sats in the 90s on 2 L nasal cannula. Afebrile, WBC 3.9. INR 1.2. 01/28/2018 scheduled for dialysis today. Creatinine 3.83. Diuresing on Lasix IV push, 24-hour I&O reflecting a decrease in weight. Breathing continues to improve, maintaining O2 sats in the mid 90s on 2 L nasal cannula. Afebrile, WBC 4.1, hemoglobin 9.7. INR 1.2. 01/29/2018 Patient is feeling better today undergoing hemodialysis still volume overloaded. Removed about 2 L via hemodialysis. Constitutional: Denied any fatigue denied any fever. Cardio vascular: denied any chest pain, palpitations Gastrointestinal denied any nausea vomiting Pulmonary: Short as of breath improved Neurologic denied any new focal deficits Objective - Vital Signs Vital signs: Vital Signs Temp 97.9 F 01/29/18 08:00 Pulse 102 H 01/29/18 09:15 Resp 18 01/29/18 08:00 BP 95/49 01/29/18 08:00 Pulse Ox 95 01/29/18 08:00 Intake & Output 01/28/18 01/29/18 01/29/18 18:59 06:59 18:59 Intake Total 1420 600 326 Output Total 0 0 Balance 1420 600 326 Weight 80.5 kg Intake: Oral 1420 600 326 Output: Urine 0 0 Other: Voiding Method Urinal Urinal Urinal # Voids 1 0 0 # Bowel Movements 1 1 - Exam PHYSICAL EXAMINATION: GENERAL: The patient is alert and oriented x3, not in any acute distress. Well developed, well nourished. HEENT: Pupils are round and equally reacting to light. EOMI. No scleral icterus. No conjunctival pallor. Normocephalic, atraumatic. No pharyngeal erythema. No thyromegaly. CARDIOVASCULAR: S1 and S2 present. No murmurs, rubs, or gallops. PULMONARY: Bibasilar crackles with expiratory wheezing ABDOMEN: Soft, nontender, nondistended, normoactive bowel sounds. No palpable organomegaly. MUSCULOSKELETAL: No joint swelling or deformity. EXTREMITIES: No cyanosis, clubbing, or pedal edema. NEUROLOGICAL: Gross neurological examination did not reveal any focal deficits. SKIN: No rashes. - Labs CBC & Chem 7: 01/29/18 05:14 01/29/18 05:14 Labs: Abnormal Lab Results - Last 24 Hours (Table) 01/29/18 01/29/18 01/29/18 Range/Units 05:14 05:14 05:14 RBC 3.24 L (4.30-5.90) m/uL Hgb 9.6 L (13.0-17.5) gm/dL Hct 30.8 L (39.0-53.0) % RDW 15.6 H (11.5-15.5) % Plt Count 124 L (150-450) k/uL Lymphocytes # (Manual) 0.97 L (1.0-4.8) k/uL INR 1.2 H (<1.2) Sodium 135 L (137-145) mmol/L BUN 36 H (9-20) mg/dL Creatinine 3.07 H (0.66-1.25) mg/dL Assessment and Plan Plan: Assessment and Plan Assessment: -Shortness of breath, secondary to COPD as well as CHF exacerbation patient is undergoing hemodialysis patient has stage V chronic kidney disease from my focal segmental humerus process. Removal of around 2 L of fluid today as patient blood pressure is already low -acute on chronic exacerbation CHF, systolic dysfunction, EF 40-45%, secondary to hypervolemia -Acute COPD exacerbation -Recurrent left pleural effusion, recent left-sided thoracentesis - negative for malignancy. Status post thoracentesis 01/26, pathology pending. 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 PermCath placed, secondary to Fistula venous leak, hemodialysis initiated. -Coumadin Monitoring -Chronic Atrial fibrillation -Hypertension -Hyperlipidemia -Anemia of chronic disease -Metabolic acidosis
--- NOTE | 2018-01-29 12:37 | P.PN ---
Subjective Progress Note Date: 01/29/18 Principal diagnosis: Acute hypoxic respiratory failure secondary to recurrent left-sided pleural effusion. This is a very pleasant 82-year-old gentleman who follows with Dr. Ortiz as his primary care physician. He has a history of chronic renal failure not currently on dialysis him a atrial fibrillation anticoagulant with warfarin, chronic obstructive pulmonary disease, hyperlipidemia, hypertension. He also has a history of recurrent pleural effusions. In 2014 he had a right-sided pleural effusion status post thoracentesis. He also more recently had a left- sided thoracentesis with 2.4 L of bloody effusion removed. The pathology was negative for malignancy. A follow-up computed tomography scan of the chest at that time had revealed small residual left pleural effusion. There is a small area of groundglass opacity in the left lung. Suspected focus of reexpansion alveolar edema. No other abnormalities were noted. No masses or nodules. Total protein 2.8, LDH 251. Today's echocardiogram revealed moderate concentric left ventricular hypertrophy with only mildly impaired left ventricular systolic function with ejection fraction 45-50%. No significant valvular disease. No pulmonary hypertension. The patient is seen today in consultation on the selective care unit. He is awake and alert in no acute distress. He is quite dyspneic on minimal exertion. He is also fatigued and weak. He is maintaining O2 saturations in the mid 90s on 2 L/m per nasal cannula. Current temperature 99.1. Slightly tachycardic remains in atrial fibrillation. White count 3.7. Hemoglobin 10.4. Platelet count 135. Troponin 0.041. ProBNP 17,400. He does have a mature right upper extremity AV fistula placed back in September 2017. BUN 85, creatinine 4.21. INR 2.5. The patient is seen today 01/26/2018 in follow-up on the selective care unit. He is currently resting comfortably in bed. He remains dyspneic on minimal exertion however. He is maintaining O2 saturations in the 90s on room air. He' s been afebrile. Hemodynamically stable. There were unable to access the right upper extremity fistula for hemodialysis yesterday. The plan is for temporary dialysis catheter be placed today and possibly hemodialysis later this afternoon. He was given a dose of vitamin K yesterday and his INR is 1.4. We'll proceed with a left-sided thoracentesis this morning. He count 4.0. Hemoglobin 9.8. Platelet count 148,000. BUN 84. Creatinine 4.82. The patient is seen again today 01/27/2018 in follow-up on the selective care unit. He is awake and alert in no acute distress. He did undergo a left-sided thoracentesis yesterday with 1650 ML's of yellow-colored fluid was removed. He is breathing quite a bit easier today as compared to yesterday. He is maintaining O2 saturations in the 90s on 2 L/m per nasal cannula. He's been afebrile. He will be receiving another hemodialysis treatment tomorrow iron is being replaced. He remains on Lasix 80 mg IV push every 12 hours. White count 3.9. Hemoglobin 10.0. Creatinine 4.24. The patient is seen again today 2017 in follow-up on the selective care unit. He is more awake and alert today. Feels a bit stronger. Able lay flat in bed without any significant orthopnea. Denies any worsening shortness of breath, cough or congestion. He is maintaining good O2 saturations in the 90s on 2 L/m per nasal cannula. He's been afebrile. Hemodynamically stable. Pleural fluid was negative for malignancy. White count 4.1. Hemoglobin 9.7. Creatinine 3.83. Due for hemodialysis today. The patient is seen again today 01/29/2018 in follow-up on the selective care unit. He is currently resting fairly comfortably in bed. He is currently receiving hemodialysis. He denies any worsening shortness of breath. He is maintaining O2 saturations in the mid 90s on room air. He's currently afebrile. He did receive some midodrine before his hemodialysis. Current blood pressure 95/49. White count 4.6. Hemoglobin 9.6. Creatinine 3.07. He remains on Lasix 80 mg IV every 12 hours. Chest x-ray reveals increasing fluid in the left base and perihilar region. Objective - Vital Signs Vital signs: Vital Signs Temp 97.9 F 01/29/18 08:00 Pulse 102 H 01/29/18 09:15 Resp 18 01/29/18 08:00 BP 95/49 01/29/18 08:00 Pulse Ox 95 01/29/18 08:00 Intake & Output 01/28/18 01/29/1801/29/18 18:59 06:59 18:59 Intake Total 1420 600 326 Output Total 0 0 Balance 1420 600 326 Weight 80.5 kg Intake: Oral 1420 600 326 Output: Urine 0 0 Other: Voiding Method Urinal Urinal Urinal # Voids 1 0 0 # Bowel Movements 1 1 - Exam - Constitutional General appearance: average body habitus, no acute distress. Maintaining good O2 saturations in the 90s on room air. - EENT Eyes: EOMI, PERRLA ENT: hearing grossly normal Ears: bilateral: normal - Neck Neck: normal ROM Carotids: bilateral: upstroke normal Thyroid: bilateral: normal size - Respiratory Respiratory: left: diminished, rales - Cardiovascular Rhythm: irregularly irregular Heart sounds: normal: S1, S2 - Gastrointestinal General gastrointestinal: normal bowel sounds - Integumentary Integumentary: decreased turgor - Neurologic Neurologic: CNII-XII intact - Musculoskeletal Musculoskeletal: generalized weakness - Psychiatric Psychiatric: A&O x's 3, intact judgment & insight - Labs CBC & Chem 7: 01/29/18 05:14 01/29/18 05:14 Labs: Abnormal Lab Results - Last 24 Hours (Table) 01/29/18 01/29/18 01/29/18 Range/Units 05:14 05:14 05:14 RBC 3.24 L (4.30-5.90) m/uL Hgb 9.6 L (13.0-17.5) gm/dL Hct 30.8 L (39.0-53.0) % RDW 15.6 H (11.5-15.5) % Plt Count 124 L (150-450) k/uL Lymphocytes # (Manual) 0.97 L (1.0-4.8) k/uL INR 1.2 H (<1.2) Sodium 135 L (137-145) mmol/L BUN 36 H (9-20) mg/dL Creatinine 3.07 H (0.66-1.25) mg/dL Assessment and Plan Assessment: Impression: #1 Acute hypoxic respiratory failure secondary to recurrent left-sided pleural effusion. Chest x-ray shows increasing recurrent left-sided pleural effusion. He is maintaining good O2 saturations in the 90s on room air. #2 Atrial fibrillation, anticoagulated with warfarin. INR 1.2 today. Warfarin has been resumed. #3 Mildly impaired left ventricular systolic function with ejection fraction 45- 50%. 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 Right upper extremity fistula placed in September 2017 the venous leak and unable to be used. Permacath was placed and he is receiving renal replacement therapy #5 Anemia of chronic disease. Current hemoglobin 9.6. #6 Hypertension. #7 Hyperlipidemia. #8 Previous history of right sided pleural effusion with subsequent thoracentesis in 2014. Plan: The patient was seen and evaluated by Dr. Ortiz. Chest x-ray was reviewed. There is increasing recurrent left pleural effusion and left hilar infiltrate. We will repeat an ultrasound of the left chest. We'll also add empiric antibiotics in the form of Zosyn. He did receive hemodialysis again today. We' ll continue to follow. I, the cosigning physician, performed a history & physical examination of the patient. Lungs sounds with few crackles in the left posterior base. Diminished. Maintaining good O2 saturations in the 90s on 2 L/m per nasal cannula. I discussed the assessment and plan of care with my nurse practitioner , Charity Diallo. I attest to the above note as dictated by her.
[2018-01-29] MEDS: PIPERACILLIN-TAZOBACTAM 3.375 GM in DEXTROSE/WATER 1 50ML.BAG IVPB SCH ×2 (16:08→23:12)
[2018-01-29] MEDS ORDERED: WARFARIN 10 MG TAB PO ONE (18:00)
[2018-01-29] MEDS: rOPINIRole HCL 4 MG TABLET PO SCH (20:27)
[2018-01-29] MEDS: TIMOLOL 0.5% OPHTH DROPS 5 ML BTL BOTH EYES SCH (20:27)
[2018-01-29] MEDS: FERROUS SULFATE 325 MG TAB PO SCH (20:27)
[2018-01-29] MEDS: ALLOPURINOL 100 MG TAB PO SCH (20:28)
[2018-01-29] MEDS: CHOLECALCIFEROL 1,000 UNIT TAB PO SCH (20:28)
[2018-01-29] MEDS: MULTIVITAMINS, THERA 1 EACH TAB PO SCH (20:28)
[2018-01-29] MEDS: MELATONIN 5 MG TABLET PO SCH (20:28)
[2018-01-29] MEDS: SODIUM FERRIC GLUCONAT-SUCROSE 125 MG in SODIUM CHLORIDE 0.9% 100 ML IVPB SCH (21:18)
[2018-01-30] MEDS: FUROSEMIDE 10 MG/ML 10 ML VIAL IV SCH (06:43)
[2018-01-30] MEDS: PANTOPRAZOLE 40 MG TABLET PO SCH (06:43)
[2018-01-30] MEDS: MIDODRINE 5 MG TAB PO SCH ×3 (06:44→16:20)
[2018-01-30 07:25] LABS: Calcium 8.6 mg/dL (8.4-10.2); Potassium 3.7 mmol/L (3.5-5.1)
[2018-01-30 07:31] LABS: INR 1.3 (<1.2); Prothrombin Time 12.5 sec (9.0-12.0)
[2018-01-30] MEDS: PIPERACILLIN-TAZOBACTAM 3.375 GM in DEXTROSE/WATER 1 50ML.BAG IVPB SCH ×3 (07:43→23:28)
[2018-01-30] MEDS: HEPARIN SODIUM,PORCINE 5,000 UNIT/ML 1 ML VIAL SQ SCH ×2 (07:44→20:36)
[2018-01-30] MEDS: BRIMONIDINE TARTRATE 0.2% DROPS 5 ML BTL BOTH EYES SCH ×2 (07:44→20:35)
[2018-01-30] MEDS: METOPROLOL TARTRATE 12.5 MG TAB PO SCH ×2 (07:44→20:34)
[2018-01-30] MEDS: TAMSULOSIN 0.4 MG CAP.ER.24H PO SCH ×2 (07:45→20:36)
[2018-01-30] MEDS: BUDESONIDE 1 MG/2 ML NEBU INHALATION SCH ×2 (08:17→20:02)
[2018-01-30] MEDS: IPRATROPIUM-ALBUTEROL 3 ML NEB INHALATION SCH ×4 (08:17→20:02)
[2018-01-30] MEDS: FORMOTEROL FUMARATE 20 MCG/2 ML NEBU INHALATION SCH ×2 (08:17→20:02)
[2018-01-30] MEDS ORDERED: CALCITRIOL 0.25 MCG CAP PO SCH (09:00)
--- NOTE | 2018-01-30 09:41 | P.PN ---
Subjective Patient is seen in follow-up for chronic kidney disease stage V. 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 Hemodialysis was attempted initially using his right upper extremity AV fistula but the treatment was terminated due to concern for venous leak. Currently is resting in bed. Dyspnea improved. No vomiting or diarrhea. He had a permacath placed on January 26 and is tolerating hemodialysis treatments well. He also underwent a left-sided thoracentesis on January 26 and had about 1.6 L drained. Vital signs are stable. General: The patient appeared well nourished and normally developed. HEENT: Head exam is unremarkable. Neck is without jugular venous distension. LUNGS: Breath sounds decreased. HEART: Rate and Rhythm are regular. First and second heart sounds normal. No murmurs, rubs or gallops. ABDOMEN: Abdominal exam reveals normal bowel sounds. Non-tender and non- distended. No evidence of peritonitis. EXTREMITITES: No clubbing, cyanosis, or edema. Objective - Vital Signs Vital signs: Vital Signs Temp 98.6 F 01/30/18 07:55 Pulse 96 01/30/18 08:43 Resp 18 01/30/18 07:55 BP 93/56 01/30/18 07:55 Pulse Ox 94 L 01/30/18 08:17 Intake & Output 01/29/18 01/30/18 01/30/18 18:59 06:59 18:59 Intake Total 856 120 Output Total 200 0 Balance 856 -80 0 Weight 78 kg Intake: IV 10 .9 10 Oral 846 120 Output: Urine 200 0 Other: Voiding Method Urinal Urinal Urinal # Voids 0 0 # Bowel Movements 1 - Labs CBC & Chem 7: 01/29/18 05:14 01/30/18 06:41 Labs: Abnormal Lab Results - Last 24 Hours (Table) 01/30/18 01/30/18 Range/Units 06:41 06:41 PT 12.5 H (9.0-12.0) sec INR 1.3 H (<1.2) Sodium 134 L (137-145) mmol/L BUN 33 H (9-20) mg/dL Creatinine 3.44 H (0.66-1.25) mg/dL Assessment and Plan Plan: Assessment: 1. 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 Patient has a right upper extremity fistula which is not being used due to venous leak. Patient has a permacath placed on January 26. 2. Moderate left-sided pleural effusion status post thoracentesis on January 26 with 1.6 L drained. 3. Anemia of chronic kidney disease. Iron deficiency noted. Status post 3 doses of IV iron. 4. Chronic kidney disease mineral bone disease maintained on calcitriol. 5. Metabolic acidosis maintained on oral sodium bicarbonate. Resolved. 6. Dyspnea secondary to volume overload. Improving. 7. Systolic CHF with ejection fraction of 45-50%. 8. Hyperphosphatemia secondary to chronic kidney disease. Improved with dialysis. Plan: I will change Lasix to 80 mg orally twice daily. Hemodialysis tomorrow. Outpatient hemodialysis has been set up. Discontinued sodium bicarbonate.
[2018-01-30] MEDS ORDERED: LIDOCAINE 1% INJ 10MG/ML (20 ML MDV) SQ STA (10:03)
--- NOTE | 2018-01-30 11:22 | P.PN ---
Subjective Progress Note Date: 01/30/18 Principal diagnosis: Acute hypoxic respiratory failure secondary to pulmonary edema, secondary to renal failure and systolic dysfunction. This is a very pleasant 82-year-old gentleman who follows with Dr. Ortiz as his primary care physician. He has a history of chronic renal failure not currently on dialysis him a atrial fibrillation anticoagulant with warfarin, chronic obstructive pulmonary disease, hyperlipidemia, hypertension. He also has a history of recurrent pleural effusions. In 2014 he had a right-sided pleural effusion status post thoracentesis. He also more recently had a left- sided thoracentesis with 2.4 L of bloody effusion removed. The pathology was negative for malignancy. A follow-up computed tomography scan of the chest at that time had revealed small residual left pleural effusion. There is a small area of groundglass opacity in the left lung. Suspected focus of reexpansion alveolar edema. No other abnormalities were noted. No masses or nodules. Total protein 2.8, LDH 251. Today's echocardiogram revealed moderate concentric left ventricular hypertrophy with only mildly impaired left ventricular systolic function with ejection fraction 45-50%. No significant valvular disease. No pulmonary hypertension. The patient is seen today in consultation on the selective care unit. He is awake and alert in no acute distress. He is quite dyspneic on minimal exertion. He is also fatigued and weak. He is maintaining O2 saturations in the mid 90s on 2 L/m per nasal cannula. Current temperature 99.1. Slightly tachycardic remains in atrial fibrillation. White count 3.7. Hemoglobin 10.4. Platelet count 135. Troponin 0.041. ProBNP 17,400. He does have a mature right upper extremity AV fistula placed back in September 2017. BUN 85, creatinine 4.21. INR 2.5. The patient is seen today 01/26/2018 in follow-up on the selective care unit. He is currently resting comfortably in bed. He remains dyspneic on minimal exertion however. He is maintaining O2 saturations in the 90s on room air. He' s been afebrile. Hemodynamically stable. There were unable to access the right upper extremity fistula for hemodialysis yesterday. The plan is for temporary dialysis catheter be placed today and possibly hemodialysis later this afternoon. He was given a dose of vitamin K yesterday and his INR is 1.4. We'll proceed with a left-sided thoracentesis this morning. He count 4.0. Hemoglobin 9.8. Platelet count 148,000. BUN 84. Creatinine 4.82. The patient is seen again today 01/27/2018 in follow-up on the selective care unit. He is awake and alert in no acute distress. He did undergo a left-sided thoracentesis yesterday with 1650 ML's of yellow-colored fluid was removed. He is breathing quite a bit easier today as compared to yesterday. He is maintaining O2 saturations in the 90s on 2 L/m per nasal cannula. He's been afebrile. He will be receiving another hemodialysis treatment tomorrow iron is being replaced. He remains on Lasix 80 mg IV push every 12 hours. White count 3.9. Hemoglobin 10.0. Creatinine 4.24. The patient is seen again today 2017 in follow-up on the selective care unit. He is more awake and alert today. Feels a bit stronger. Able lay flat in bed without any significant orthopnea. Denies any worsening shortness of breath, cough or congestion. He is maintaining good O2 saturations in the 90s on 2 L/m per nasal cannula. He's been afebrile. Hemodynamically stable. Pleural fluid was negative for malignancy. White count 4.1. Hemoglobin 9.7. Creatinine 3.83. Due for hemodialysis today. The patient is seen again today 01/29/2018 in follow-up on the selective care unit. He is currently resting fairly comfortably in bed. He is currently receiving hemodialysis. He denies any worsening shortness of breath. He is maintaining O2 saturations in the mid 90s on room air. He's currently afebrile. He did receive some midodrine before his hemodialysis. Current blood pressure 95/49. White count 4.6. Hemoglobin 9.6. Creatinine 3.07. He remains on Lasix 80 mg IV every 12 hours. Chest x-ray reveals increasing fluid in the left base and perihilar region. Reevaluated today on 01/30/2018, patient is doing relatively well, has some shortness of breath, his ultrasound showed good sized left pleural effusion, however I have made 2 attempts to drain the fluid from the left pleural space, and could not hardly drain more than 50 mL of fluid from the left pleural space. Hence no further attempts were made. And will likely repeat chest x- ray in a.m., his chest x-ray today showed no evidence of pneumothorax, there is left-sided pleural effusion, but for some reason could not to drain the fluid from the left pleural space mostly because of the marking by the photovoltaic installation technician was noted to be quite lateral almost at the level of the mid axillary line, making tapping a bit difficult. May have to consider tapping with ultrasound available and could be done by interventional radiology if the fluid needs to be drained again. Patient again has mostly some shortness of breath, no cough no wheezing no fever no chills no hemoptysis, has been on hemodialysis since admission. All his labs were reviewed, BUN is 33 creatinine 3.44. CBC was also noted. Chest x-ray noted ultrasound was reviewed. Objective - Vital Signs Vital signs: Vital Signs Temp 98.6 F 01/30/18 07:55 Pulse 96 01/30/18 08:43 Resp 18 01/30/18 07:55 BP 93/56 01/30/18 07:55 Pulse Ox 94 L 01/30/18 08:17 Intake & Output 01/29/18 01/30/18 01/30/18 18:59 06:59 18:59 Intake Total 856 120 Output Total 200 0 Balance 856 -80 0 Weight 78 kg Intake: IV 10 .9 10 Oral 846 120 Output: Urine 200 0 Other: Voiding Method Urinal Urinal Urinal # Voids 0 0 # Bowel Movements 1 - Exam Physical Exam: Revealed an 82-year-old white male in no distress. Head: Atraumatic, normocephalic. HEENT:[Neck is supple.] [No neck masses.] [No thyromegaly.] [No JVD.] Chest: [Diminished breath sounds and dullness at the left base. No rhonchi and no wheezes. Cardiac Exam: Irregular irregular rhythm. [Normal S1 and S2, no S3 gallop, no murmur.] Abdomen: [Soft, nontender, no megaly, no rebound, no guarding, normal bowel sounds.] Extremities: [No clubbing, no edema, no cyanosis.] Neurological Exam: [No focal neurologic deficit.] Lymphatics: No lymphadenopathy. Psychiatric: Normal mood affect and mental status. - Labs CBC & Chem 7: 01/29/18 05:14 01/30/18 06:41 Labs: Abnormal Lab Results - Last 24 Hours (Table) 01/30/18 01/30/18 Range/Units 06:41 06:41 PT 12.5 H (9.0-12.0) sec INR 1.3 H (<1.2) Sodium 134 L (137-145) mmol/L BUN 33 H (9-20) mg/dL Creatinine 3.44 H (0.66-1.25) mg/dL Assessment and Plan Assessment: Impression: 1 acute hypoxic respiratory failure secondary to pulmonary edema secondary to renal failure and secondary to systolic dysfunction. 2 left pleural effusion, status post thoracentesis times one, attempt for second thoracentesis on 01/30, failed to recover any fluid from the left was placed. 3 chronic systolic dysfunction 4 stage V kidney disease patient is now on hemodialysis. 5 benign essential hypertension. 6 chronic atrial fibrillation. Recommendation: Continue hemodialysis, follow-up chest x-ray in a.m., consider thoracentesis if necessary by interventional radiology, however the fluid itself may actually improve with more dialysis. Patient is not quite ready for discharge planning, we'll continue to follow. Time with Patient: Less than 30
--- NOTE | 2018-01-30 11:34 | XR ---
EXAMINATION TYPE: XR chest 1V portable DATE OF EXAM: 01/30/2018 HISTORY: post thoracentesis. REFERENCE: Previous study dated 01/28/2018. FINDINGS: There is a large-bore, double-lumen catheter in place. Its tip is in the right atrium. There are patchy bilateral infiltrates. There is a prominent left-sided effusion. No pneumothorax is seen. The heart is enlarged. IMPRESSION: I DO NOT SEE A POSTTHORACENTESIS COMPLICATION.
--- NOTE | 2018-01-30 14:15 | US ---
EXAMINATION TYPE: US chest DATE OF EXAM: 01/30/2018 COMPARISON: Previous study dated 01/24/2018. CLINICAL HISTORY: Left pleural effusion. Lt pleural effusion TECHNIQUE: Targeted ultrasound of the posterior lower left hemithorax EXAM MEASUREMENTS: Left Pleural Effusion pocket size: 9.0 cm Left skin surface to fluid distance: 4.2 cm Left side marked for possible thoracentesis outside the dept. Pulmonologists are able to review the images in the patient?s EMR. IMPRESSIONS: LEFT-SIDED PLEURAL EFFUSION.
[2018-01-30] MEDS: FUROSEMIDE 80 MG TAB PO SCH (16:52)
--- NOTE | 2018-01-30 16:54 | PCN ---
PROCEDURE NOTE OPERATIVE REPORT: Left-sided thoracentesis. PREOPERATIVE DIAGNOSIS: Left pleural effusion. POSTOP DIAGNOSIS: Left pleural effusion. ANESTHESIA USED: 5 mL of 1% lidocaine. PROCEDURE: The patient was placed in a sitting upright position, the area below the left scapula was prepared in a sterile fashion and drapes were applied. The area was earlier localized by ultrasound, and it correlated to the level of the 8th intercostal space and posterior axillary line. The area was locally anesthetized at that level, and 2 attempts were made to retrieve the fluid from the left pleural space, I was able to retrieve a few mL of fluid, however, as soon as the thoracentesis needle was pulled out of the space and the catheter advanced into the pleural space, then no fluid could be obtained. Most likely secondary to kinking of the catheter in the intercostal space. Again, 2 attempts were made, and only minimal amount of fluid was obtained, then no further attempts were made, chest x-ray was ordered postoperatively and no evidence of complications. We will likely recommend having thoracentesis done with the ultrasound available at bedside. Possibly attempt at a different location from the presently marked location if possible. MMODL / IJN: [id number] /
[2018-01-30] MEDS ORDERED: WARFARIN 10 MG TAB PO ONE (18:00)
[2018-01-30] MEDS: TIMOLOL 0.5% OPHTH DROPS 5 ML BTL BOTH EYES SCH (20:35)
[2018-01-30] MEDS: FERROUS SULFATE 325 MG TAB PO SCH (20:36)
[2018-01-30] MEDS: ALLOPURINOL 100 MG TAB PO SCH (20:36)
[2018-01-30] MEDS: CHOLECALCIFEROL 1,000 UNIT TAB PO SCH (20:36)
[2018-01-30] MEDS: rOPINIRole HCL 4 MG TABLET PO SCH (20:36)
[2018-01-30] MEDS: MULTIVITAMINS, THERA 1 EACH TAB PO SCH (20:36)
[2018-01-30] MEDS: MELATONIN 5 MG TABLET PO SCH (20:36)
[2018-01-31] MEDS: PANTOPRAZOLE 40 MG TABLET PO SCH (06:25)
[2018-01-31] MEDS: MIDODRINE 5 MG TAB PO SCH ×3 (06:25→16:38)
[2018-01-31 06:36] LABS: INR 2.1 (<1.2); Prothrombin Time 19.1 sec (9.0-12.0)
[2018-01-31] MEDS: FORMOTEROL FUMARATE 20 MCG/2 ML NEBU INHALATION SCH (08:04)
[2018-01-31] MEDS: IPRATROPIUM-ALBUTEROL 3 ML NEB INHALATION SCH ×3 (08:04→15:42)
[2018-01-31] MEDS: BUDESONIDE 1 MG/2 ML NEBU INHALATION SCH (08:04)
--- NOTE | 2018-01-31 08:19 | P.PN ---
Subjective Patient is seen in follow-up for chronic kidney disease stage V. 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 Hemodialysis was attempted initially using his right upper extremity AV fistula but the treatment was terminated due to concern for venous leak. Currently is resting in bed. Dyspnea improved. No vomiting or diarrhea. He had a permacath placed on January 26 and is tolerating hemodialysis treatments well. He also underwent a left-sided thoracentesis on January 26 and had about 1.6 L drained. Another thoracentesis was attempted yesterday but no fluid was obtained. Vital signs are stable. General: The patient appeared well nourished and normally developed. HEENT: Head exam is unremarkable. Neck is without jugular venous distension. LUNGS: Breath sounds decreased. HEART: Rate and Rhythm are regular. First and second heart sounds normal. No murmurs, rubs or gallops. ABDOMEN: Abdominal exam reveals normal bowel sounds. Non-tender and non- distended. No evidence of peritonitis. EXTREMITITES: No clubbing, cyanosis, or edema. Objective - Vital Signs Vital signs: Vital Signs Temp 97.4 F L 01/30/18 20:00 Pulse 88 01/31/18 08:04 Resp 18 01/31/18 04:00 BP 87/70 01/31/18 04:00 Pulse Ox 98 01/31/18 04:00 Intake & Output 01/30/18 01/31/18 01/31/18 18:59 06:59 18:59 Intake Total 400 Output Total 0 100 Balance 400 -100 Weight 76.5 kg Intake: Intake, IV Titration 50 Amount Piperacillin-Tazobactam 3 50 .375 gm In Dextrose/Water 1 50ml.bag @ 12.5 mls/hr IVPB Q8HR [facility] Rx#: [id number] Oral 350 Output: Urine 0 100 Other: Voiding Method Urinal Urinal # Voids 0 # Bowel Movements 1 - Labs CBC & Chem 7: 01/29/18 05:14 01/30/18 06:41 Labs: Abnormal Lab Results - Last 24 Hours (Table) 01/31/18 Range/Units 05:58 PT 19.1 H (9.0-12.0) sec INR 2.1 H (<1.2) Assessment and Plan Plan: Assessment: 1. 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 Patient has a right upper extremity fistula which is not being used due to venous leak. Patient has a permacath placed on January 26. 2. Moderate left-sided pleural effusion status post thoracentesis on January 26 with 1.6 L drained. 3. Anemia of chronic kidney disease. Iron deficiency noted. Status post 3 doses of IV iron. 4. Chronic kidney disease mineral bone disease maintained on calcitriol. 5. Metabolic acidosis maintained on oral sodium bicarbonate. Resolved. 6. Dyspnea secondary to volume overload. Improving. 7. Systolic CHF with ejection fraction of 45-50%. 8. Hyperphosphatemia secondary to chronic kidney disease. Improved with dialysis. Plan: Continue Lasix 80 mg orally twice daily. Hemodialysis today. Outpatient hemodialysis has been set up. Discontinued sodium bicarbonate.
[2018-01-31 08:23] VITALS: RESP 20; TEMP 97.8
[2018-01-31] MEDS: PIPERACILLIN-TAZOBACTAM 3.375 GM in DEXTROSE/WATER 1 50ML.BAG IVPB SCH (09:08)
[2018-01-31] MEDS: METOPROLOL TARTRATE 12.5 MG TAB PO SCH (09:12)
[2018-01-31] MEDS: BRIMONIDINE TARTRATE 0.2% DROPS 5 ML BTL BOTH EYES SCH (09:22)
[2018-01-31] MEDS: TAMSULOSIN 0.4 MG CAP.ER.24H PO SCH (09:23)
--- NOTE | 2018-01-31 10:38 | P.PN ---
Subjective Progress Note Date: 01/30/18 Principal diagnosis: Pleural Effusion This a 82-year-old gentleman admitted with shortness of breath, multifactorial, possible CHF exacerbation, COPD exacerbation, recurrent left pleural effusion, end-stage renal disease and multiple other medical issues. Creatinine 4.21. Dr. Carr to evaluate /clear fistula for initiation of hemodialysis. Lasix IV push increased as per nephrology. Maintaining O2 sats in the mid 90s on 2 L nasal cannula. T-max 99.1. INR 2.4. Telemetry atrial fibrillation. 01/26/2018 maintained on Lasix IV push. Creatinine 4.82. hemodialysis attempted via AV fistula, terminated for potential venous leak. Scheduled for permacath placement today. INR 1.4, scheduled for left thoracentesis with pulmonary today. Tired appearing. Denies chest pain, palpitations. 01/27/2018 permacath placed yesterday, underwent HD again this morning. Creatinine 4.24. Underwent left thoracentesis yesterday with what 1.6 L of yellow pleural fluid drained, tolerated procedure well. Maintained on Lasix IV push, IV Ferrliect. Breathing improving, maintaining O2 sats in the 90s on 2 L nasal cannula. Afebrile, WBC 3.9. INR 1.2. 01/28/2018 scheduled for dialysis today. Creatinine 3.83. Diuresing on Lasix IV push, 24-hour I&O reflecting a decrease in weight. Breathing continues to improve, maintaining O2 sats in the mid 90s on 2 L nasal cannula. Afebrile, WBC 4.1, hemoglobin 9.7. INR 1.2. 01/29/2018 Patient is feeling better today undergoing hemodialysis still volume overloaded. Removed about 2 L via hemodialysis. 01/30/2018 Patient denied any complaints of chest pain. Still having shortness of breath and pulmonary is following for thoracentesis today. Otherwise patient will be getting hemodialysis as scheduled. Denied any dizziness or lightheadedness. Sitting on the side of the bed comfortably. No acute overnight issues otherwise. Patient is still hypotensive Constitutional: Denied any fatigue denied any fever. Cardio vascular: denied any chest pain, palpitations Gastrointestinal denied any nausea vomiting Pulmonary: Short as of breath improved Neurologic denied any new focal deficits Objective - Vital Signs Vital signs: Vital Signs Temp 97.9 F 09/23/18 12:00 Pulse 114 H 01/30/18 12:00 Resp 18 01/30/18 12:00 BP 87/52 01/30/18 12:00 Pulse Ox 95 01/30/18 12:00 Intake & Output 01/29/18 01/30/18 01/30/18 18:59 06:59 18:59 Intake Total 856 120 150 Output Total 200 0 Balance 856 -80 150 Weight 78 kg Intake: IV 10 .9 10 Oral 846 120 150 Output: Urine 200 0 Other: Voiding Method Urinal Urinal Urinal # Voids 0 0 # Bowel Movements 1 - Exam PHYSICAL EXAMINATION: GENERAL: The patient is alert and oriented x3, not in any acute distress. Well developed, well nourished. HEENT: Pupils are round and equally reacting to light. EOMI. No scleral icterus. No conjunctival pallor. Normocephalic, atraumatic. No pharyngeal erythema. No thyromegaly. CARDIOVASCULAR: S1 and S2 present. No murmurs, rubs, or gallops. PULMONARY: Bibasilar crackles with expiratory wheezing ABDOMEN: Soft, nontender, nondistended, normoactive bowel sounds. No palpable organomegaly. MUSCULOSKELETAL: No joint swelling or deformity. EXTREMITIES: No cyanosis, clubbing, or pedal edema. NEUROLOGICAL: Gross neurological examination did not reveal any focal deficits. SKIN: No rashes. - Labs CBC & Chem 7: 01/29/18 05:14 01/30/18 06:41 Labs: Abnormal Lab Results - Last 24 Hours (Table) 01/30/18 01/30/18 Range/Units 06:41 06:41 PT 12.5 H (9.0-12.0) sec INR 1.3 H (<1.2) Sodium 134 L (137-145) mmol/L BUN 33 H (9-20) mg/dL Creatinine 3.44 H (0.66-1.25) mg/dL Assessment and Plan Assessment: -Shortness of breath, secondary to COPD as well as CHF exacerbation patient is undergoing hemodialysis patient has stage V chronic kidney disease from my focal segmental humerus process. Patient is hypotensive. -acute on chronic exacerbation CHF, systolic dysfunction, EF 40-45%, secondary to hypervolemia -Acute COPD exacerbation -Recurrent left pleural effusion, recent left-sided thoracentesis - negative for malignancy. Status post thoracentesis 01/26, pathology pending. 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 PermCath placed, secondary to Fistula venous leak, hemodialysis initiated. -Coumadin Monitoring -Chronic Atrial fibrillation -Hypertension -Hyperlipidemia -Anemia of chronic disease -Metabolic acidosis Time with Patient: Greater than 30
[2018-01-31 11:09] VITALS: BMI 26.4
[2018-01-31] MEDS: FUROSEMIDE 80 MG TAB PO SCH (11:21)
[2018-01-31] MEDS: HEPARIN SODIUM,PORCINE 5,000 UNIT/ML 1 ML VIAL SQ SCH (11:21)
--- NOTE | 2018-01-31 13:22 | P.PN ---
Subjective Progress Note Date: 01/31/18 Principal diagnosis: Abnormal chest x-ray, pleural effusion Progress note dated 01/31/2018 This is an 82-year-old male admitted with a diagnosis of acute hypoxemic respiratory failure secondary to pleural effusion and pulmonary edema from his underlying renal failure and systolic dysfunction. The patient underwent thoracentesis by my partner on the left side. A second attempt at thoracentesis was unsuccessful. The patient may have loculated fluid. In addition, the patient has a history of chronic systolic dysfunction stage V chronic kidney disease currently on hemodialysis benign essential hypertension and chronic atrial fibrillation. Currently, the patient undergoing dialysis. The plan is to remove 2 L. His son is in the room with him. Some talk of possible discharge but this new nothing about it. The patient appears to be relatively comfortable. He was not requiring any supplemental oxygen. There is no kwadwo respiratory distress. No nasal flaring use of accessory muscles or audible wheezing. Objective - Vital Signs Vital signs: Vital Signs Temp 97.8 F 01/31/18 11:22 Pulse 92 01/31/18 11:42 Resp 20 01/31/18 11:22 BP 101/59 01/31/18 11:22 Pulse Ox 99 01/31/18 11:22 Intake & Output 01/30/18 01/31/18 01/31/18 18:59 06:59 18:59 Intake Total 400 180 Output Total 0 100 Balance 400 -100 180 Weight 76.5 kg 76.5 kg Intake: Intake, IV Titration 50 Amount Piperacillin-Tazobactam 3 50 .375 gm In Dextrose/Water 1 50ml.bag @ 12.5 mls/hr IVPB Q8HR [facility] Rx#: [id number] Oral 350 180 Output: Urine 0 100 Other: Voiding Method Urinal Urinal # Voids 0 2 # Bowel Movements 1 - Exam No acute distress, oriented 3. HEENT examination is grossly unremarkable. Mucous membranes are moist. No oral lesions. Neck supple. Full range of motion. No adenopathy thyromegaly or neck vein distention. Cardiovascular examination reveals irregular rhythm rate. S1-S2 normal. No S3 or S4. No discernible murmur noted. Lungs reveal crackles at both bases. Diminished breath sounds at the left base. No wheezes or rhonchi. Upper lobe lung sounds are normal. Abdomen soft bowel sounds are heard. No masses or tenderness. Extremities are intact. No cyanosis clubbing or edema. Skin is without rash or lesion. Neurologic examination is brief but nonfocal. - Labs CBC & Chem 7: 01/29/18 05:14 01/30/18 06:41 Labs: Abnormal Lab Results - Last 24 Hours (Table) 01/31/18 Range/Units 05:58 PT 19.1 H (9.0-12.0) sec INR 2.1 H (<1.2) Assessment and Plan Assessment: Assessment Acute hypoxemic respiratory failure secondary to pulmonary edema from the patient's underlying renal failure and systolic dysfunction Left pleural effusion, status post thoracentesis 1, second attempt being unsuccessful Chronic systolic heart failure . Stage IV chronic kidney disease, currently in hemodialysis History of chronic atrial fibrillation Anemia of chronic disease History of COPD Plan: Plan dated 01/31/2018 The patient seems to be resting relatively comfortably. He is not requiring any supplemental oxygen. There is no audible wheezing or use of accessory muscles. His respiratory status seems relatively stable. He is getting breathing treatments 4 times a day. The patient will continue with hemodialysis. The hope is that we will not need another procedure. Should she continue to have a large left-sided pleural effusion, given the fact that my partner could not drain the left chest the second time around, I would recommend ultrasound-guided thoracentesis done by interventional radiology. Labs and x-rays are reviewed. Medications are reviewed. Time with Patient: Less than 30
--- NOTE | 2018-01-31 15:19 | P.DS ---
Providers Date of admission: 01/24/18 14:10 Expected date of discharge: 01/31/18 Attending physician: Chya Read Consults: 01/24/18 14:10 Consult Physician Routine Consulting Provider: Akash Dias Consult Reason/Comments: Pleural effusion, dyspnea Do you want consulting provider notified?: Yes Consult Physician Routine Consulting Provider: Vaibhav Ortiz Consult Reason/Comments: Pleural effusion, dyspnea Do you want consulting provider notified?: Yes 01/24/18 18:45 Consult Physician Routine Consulting Provider: Jakub Thompson Consult Reason/Comments: arf Do you want consulting provider notified?: Yes 01/25/18 09:34 Consult Physician Routine Consulting Provider: Kee Carr Consult Reason/Comments: clearance to use exisiting fistula Do you want consulting provider notified?: Yes Primary care physician: Vaibhav Ortiz [facility] Course: Final Diagnoses: -Shortness of breath, secondary to COPD as well as CHF exacerbation patient is undergoing hemodialysis patient has stage V chronic kidney disease from my focal segmental humerus process. Patient is hypotensive. -acute on chronic exacerbation CHF, systolic dysfunction, EF 40-45%, secondary to hypervolemia -Acute COPD exacerbation -Recurrent left pleural effusion, recent left-sided thoracentesis - negative for malignancy. Status post thoracentesis 01/26, pathology pending. 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 PermCath placed, secondary to Fistula venous leak, hemodialysis initiated. -Coumadin Monitoring -Chronic Atrial fibrillation -Hypertension -Hyperlipidemia -Anemia of chronic disease -Metabolic acidosis Hospital course: This a 82-year-old gentleman admitted with shortness of breath, multifactorial, possible CHF exacerbation, COPD exacerbation, recurrent left pleural effusion, end-stage renal disease and multiple other medical issues. Creatinine 4.21. Dr. Carr to evaluate /clear fistula for initiation of hemodialysis. Lasix IV push increased as per nephrology. Maintaining O2 sats in the mid 90s on 2 L nasal cannula. T-max 99.1. INR 2.4. Telemetry atrial fibrillation. 01/26/2018 maintained on Lasix IV push. Creatinine 4.82. hemodialysis attempted via AV fistula, terminated for potential venous leak. Scheduled for permacath placement today. INR 1.4, scheduled for left thoracentesis with pulmonary today. Tired appearing. Denies chest pain, palpitations. 01/27/2018 permacath placed yesterday, underwent HD again this morning. Creatinine 4.24. Underwent left thoracentesis yesterday with what 1.6 L of yellow pleural fluid drained, tolerated procedure well. Maintained on Lasix IV push, IV Ferrliect. Breathing improving, maintaining O2 sats in the 90s on 2 L nasal cannula. Afebrile, WBC 3.9. INR 1.2. 01/28/2018 scheduled for dialysis today. Creatinine 3.83. Diuresing on Lasix IV push, 24-hour I&O reflecting a decrease in weight. Breathing continues to improve, maintaining O2 sats in the mid 90s on 2 L nasal cannula. Afebrile, WBC 4.1, hemoglobin 9.7. INR 1.2. 01/29/2018 Patient is feeling better today undergoing hemodialysis still volume overloaded. Removed about 2 L via hemodialysis. 01/30/2018 Patient denied any complaints of chest pain. Still having shortness of breath and pulmonary is following for thoracentesis today. Otherwise patient will be getting hemodialysis as scheduled. Denied any dizziness or lightheadedness. Sitting on the side of the bed comfortably. No acute overnight issues otherwise. Patient is still hypotensive Constitutional: Denied any fatigue denied any fever. Cardio vascular: denied any chest pain, palpitations Gastrointestinal denied any nausea vomiting Pulmonary: Short as of breath improved Neurologic denied any new focal deficits Significant clinical improvement. Cleared by all consults for discharge. Patient is being discharged home in a stable condition with guarded prognosis.- Exam EXAMINATION: GENERAL: The patient is alert and oriented x3, not in any acute distress. CARDIOVASCULAR: S1 and S2 present. No murmurs, rubs, or gallops. PULMONARY: Bibasilar crackles with expiratory wheezing ABDOMEN: Soft, nontender, nondistended, normoactive bowel sounds. No palpable organomegaly. NEUROLOGICAL: Gross neurological examination did not reveal any focal deficits. The impression and plan of care has been dictated as directed. : I performed a history and examination of this patient, discussed the same with the dictator. I agree with the dictator's note ,documented as a scribe. Any additional findings or plans will be noted. Time taken: 35 minutes Patient Condition at Discharge: Stable Plan - Discharge Summary Discharge Rx Participant: No New Discharge Prescriptions: New Furosemide [Lasix] 80 mg PO DAILY #30 tab Midodrine [ProAmatine] 10 mg PO AC-TID #180 tab Pantoprazole [Protonix] 40 mg PO AC-BRKFST #30 tablet.dr Continue Brimonidine Tartrate [Alphagan P 0.1% Ophth Soln] 1 drop BOTH EYES BID Timolol 0.5% Ophth Soln [Timoptic 0.5% Ophth Soln] 1 drop BOTH EYES DAILY rOPINIRole HCL [Requip] 4 mg PO HS Allopurinol [Zyloprim] 100 mg PO HS Warfarin [Coumadin] 2.5 mg PO SUMOWEFR Calcitriol 0.25 mcg PO Q14D Atenolol [Tenormin] 12.5 mg PO Q48H Warfarin [Coumadin] 5 mg PO TUTHSA Multivitamins, Thera [Multivitamin (formulary)] 1 tab PO HS Ferrous Sulfate [Iron (65 MG Elemental)] 325 mg PO HS Cholecalciferol (Vitamin D3) [Vitamin D3] 2,000 unit PO HS Tamsulosin HCl [Flomax] 0.4 mg PO BID Melatonin 10 mg PO HS Discontinued Sodium Bicarbonate Tab 650 mg PO QID #0 tab Furosemide [Lasix] 40 mg PO SUTRUSTSA Furosemide [Lasix] 20 mg PO MOWEFR Discharge Medication List Brimonidine Tartrate [Alphagan P 0.1% Ophth Soln] 1 drop BOTH EYES BID 12/10/14 [History] Timolol 0.5% Ophth Soln [Timoptic 0.5% Ophth Soln] 1 drop BOTH EYES DAILY [History] Allopurinol [Zyloprim] 100 mg PO HS 12/27/17 [History] Atenolol [Tenormin] 12.5 mg PO Q48H 12/27/17 [History] Calcitriol 0.25 mcg PO Q14D 12/27/17 [History] Cholecalciferol (Vitamin D3) [Vitamin D3] 2,000 unit PO HS 12/27/17 [History] Ferrous Sulfate [Iron (65 MG Elemental)] 325 mg PO HS 12/27/17 [History] Multivitamins, Thera [Multivitamin (formulary)] 1 tab PO HS 12/27/17 [History] Warfarin [Coumadin] 2.5 mg PO SUMOWEFR 12/27/17 [History] Warfarin [Coumadin] 5 mg PO TUTHSA 12/27/17 [History] rOPINIRole HCL [Requip] 4 mg PO HS 12/27/17 [History] Melatonin 10 mg PO HS 01/24/18 [History] Tamsulosin HCl [Flomax] 0.4 mg PO BID 01/24/18 [History] Furosemide [Lasix] 80 mg PO DAILY #30 tab 01/31/18 [Rx] Midodrine [ProAmatine] 10 mg PO AC-TID #180 tab 01/31/18 [Rx] Pantoprazole [Protonix] 40 mg PO AC-BRKFST #30 tablet. 01/31/18 [Rx] Follow up Appointment(s)/Referral(s): [facility] [Provider Group] - 2 Weeks Vaibhav Ortiz MD [Primary Care Provider] - 02/03/18 1:00 pm [facility], [NON-STAFF] - Jakub Thompson DO [STAFF PHYSICIAN] - 2 Weeks (Dr. Thmopson will follow up with you at dialysis.) Ambulatory/Diagnostic Orders: Complete Blood Count w/diff [LAB.AMB] Time Frame: 3 Days, Location: None Selected Prothrombin Time INR [LAB.AMB] Time Frame: 02/03/18, Location: None Selected Patient Instructions/Handouts: Dialysis Diet (DC), Pleural Effusion (DC), Hemodialysis (DC) Activity/Diet/Wound Care/Special Instructions: Antibx. as per pulmonary Hemodialysis - Wednesday, Wednesday, Wednesday at [facility] - report at 3:45 p.m. - first treatment on Wednesday01/31/18
[2018-01-31 16:11] VITALS: BP 82/51; PULSE 113
[2018-01-31] MEDS ORDERED: WARFARIN 2.5 MG TAB PO SCH (18:00)
[2018-01-31] MEDS ORDERED: PIPERACILLIN-TAZOBACTAM 3.375 GM in DEXTROSE/WATER 1 50ML.BAG IVPB SCH (21:00)
[2018-02-01] MEDS ORDERED: FUROSEMIDE 80 MG TAB PO SCH (09:00)
[2018-02-01] MEDS ORDERED: WARFARIN 5 MG TAB PO SCH (18:00)
--- NOTE | 2018-02-02 10:55 | CDI ---
Last Revision, April 2017 Documentation Clarification Form Date: 02/02/18 From: Meli Kristian Guerda Nation, [employer] Hours-8:30 am & 5 pm M-F Admit Date: 01/24/2018 2:10:00 PM Patient Name: Andrew Harper Visit Number: [id number] Discharge Date: 01/31/18 ATTENTION: The Clinical Documentation Specialists (CDI) and [facility] Coding Staff appreciate your assistance in clarifying documentation. Please respond to the clarification below the line at the bottom and electronically sign. The CDI & [facility] Coding staff will review the response and follow-up if needed. Please note: Queries are made part of the Legal Health Record. If you have any questions, please contact the author of this message via ITS. Samir Robert MD Pleural effusion is documented in the H&P, consults, PNs and procedure notes. Patient history/risk factors: HTN & FSGS, ac/chr systolic CHF, AE COPD Path findings: Mesothelial cells, macrophages and mixed inflammatory cells, no malignant cells. Radiology findings: Moderate left pleural effusion Vital Signs: T-97.6, P-88, R-20, BP-94/59, O2 sat-98 Treatment: Thoracentesis, dialysis In your professional opinion, can you please clarify the cause of the pleural effusion? Pleural effusion due to CHF Pleural effusion unspecified Other, please specify Unable to determine Please continue to document in your progress notes and discharge summary in order to capture severity of illness and risk of mortality. Include clinical findings that support your diagnosis. etiology unclear Pleural effusion due to CHF MTDD
== END 2018-01-31 18:18 | disposition home health service (06) | DRG 291 ==
LOC: EC 10:58 → 6SEL 14:10
PROVIDERS: ADMIT Internal Medicine; ATTEND Internal Medicine
PROC: 5A1D70Z Performance of Urinary Filtration, Intermittent, Less than 6 Hours Per Day (ICD-10-PCS; 2018-01-25)
PROC: 5A1D70Z Performance of Urinary Filtration, Intermittent, Less than 6 Hours Per Day (ICD-10-PCS; 2018-01-26)
PROC: 06H033Z Insertion of Infusion Device into Inferior Vena Cava, Percutaneous Approach (ICD-10-PCS; 2018-01-26 14:00)
PROC: 0W9B3ZX Drainage of Left Pleural Cavity, Percutaneous Approach, Diagnostic (ICD-10-PCS; 2018-01-26 14:00)
PROC: B51WYZZ Fluoroscopy of Dialysis Shunt/Fistula using Other Contrast (ICD-10-PCS; principal; 2018-01-27)
PROC: 5A1D70Z Performance of Urinary Filtration, Intermittent, Less than 6 Hours Per Day (ICD-10-PCS; 2018-01-27)
PROC: 5A1D70Z Performance of Urinary Filtration, Intermittent, Less than 6 Hours Per Day (ICD-10-PCS; 2018-01-28)
PROC: 5A1D70Z Performance of Urinary Filtration, Intermittent, Less than 6 Hours Per Day (ICD-10-PCS; 2018-01-29)
PROC: 0W9B3ZZ Drainage of Left Pleural Cavity, Percutaneous Approach (ICD-10-PCS; 2018-01-30)
PROC: 5A1D70Z Performance of Urinary Filtration, Intermittent, Less than 6 Hours Per Day (ICD-10-PCS; 2018-01-31)
DX: I50.23 Acute on chronic systolic (congestive) heart failure (principal); N18.6 End stage renal disease; J96.01 Acute respiratory failure with hypoxia; J90 Pleural effusion, not elsewhere classified; J44.1 Chronic obstructive pulmonary disease with (acute) exacerbation; I13.2 Hypertensive heart and chronic kidney disease with heart failure and with stage 5 chronic kidney disease, or end stage renal disease; E87.2 Acidosis; N17.9 Acute kidney failure, unspecified; T82.530A Leakage of surgically created arteriovenous fistula, initial encounter; I95.9 Hypotension, unspecified; E83.39 Other disorders of phosphorus metabolism; D63.1 Anemia in chronic kidney disease; I48.2 Chronic atrial fibrillation; E61.1 Iron deficiency; E78.5 Hyperlipidemia, unspecified; Z99.2 Dependence on renal dialysis; Z79.01 Long term (current) use of anticoagulants; Z79.899 Other long term (current) drug therapy; Z87.01 Personal history of pneumonia (recurrent); Z87.891 Personal history of nicotine dependence; Z82.5 Family history of asthma and other chronic lower respiratory diseases; Z82.49 Family history of ischemic heart disease and other diseases of the circulatory system
CPT/HCPCS: 36415; 36556; 71045; 71046; 76604; 76937; 77001; 80048; 80053; 82550; 82553; 82728; 83540; 83550; 83880; 84100; 84484; 85025; 85610; 85730; 86706; 87340; 88108; 88305; 90935; 93005; 93306; 94640; 94760; 96374; 99285

== ENCOUNTER → 2018-03-30 | Day surgery (SDC) | payer MEDICARE ==
[~2018-03-30] MED LIST: SODIUM CHLORIDE 0.9% 500 ML 500 ML in EMPTY BAG 1 BAG IV PRN
[2018-03-30 08:04] VITALS: TEMP 98
[2018-03-30 08:28] VITALS: BP 82/54; PULSE 83; RESP 18
--- NOTE | 2018-03-30 08:53 | PCN ---
PROCEDURE NOTE OPERATIVE REPORT: Left-sided thoracentesis. PREOPERATIVE DIAGNOSIS: Left pleural effusion. POSTOPERATIVE DIAGNOSIS: Left pleural effusion. ANESTHESIA USED: 2 mL of 1% lidocaine. PROCEDURE: The patient was placed in a sitting upright position, the area below the left scapula was prepared in a sterile fashion and drapes were applied. The area was earlier localized by ultrasound guidance. At that level, the 26-gauge needle was inserted at the site which correlates to the ninth intercostal space and tip of the scapula, and the fluid was localized with a 26-gauge needle. Then a small tiny incision was made, and a standard thoracentesis 9-Cymraes catheter and needle were used, inserted at the same site, advanced into the pleural space and as soon as the fluid was obtained, the catheter was advanced into the pleural space and the needle was pulled out of the pleural space. Freely flowing fluid was removed, the fluid was obed in color, nonbloody, and roughly 2500 mL of fluid were drained from the left pleural space. The procedure was well tolerated, no evidence of any immediate complications. Chest x-ray was ordered postoperatively and it is yet to be reviewed before discharging the patient home. MMODL / IJN: [id number] /
--- NOTE | 2018-03-30 09:19 | XR ---
EXAMINATION TYPE: XR chest 1V portable DATE OF EXAM: 03/30/2018 COMPARISON: 01/30/2018 INDICATION: Postthoracentesis left side TECHNIQUE: Single frontal view of the chest is obtained. FINDINGS: The heart size is mildly prominent. The pulmonary vasculature is normal. There is a small to moderate left pleural effusion. No pneumothorax is evident post thoracentesis. Mi nimal blunting of the right costophrenic angle is evident. Double-lumen catheter is present on the ri ght with tips in superior vena cava right atrial junction region. IMPRESSION: 1. No pneumothorax postthoracentesis. 2. Small to moderate left pleural effusion with minimal blunting of the right costophrenic angle.
[2018-03-30 19:50] LABS: Total Protein, Body Fluid 3100 mg/dL
== END | disposition home or self-care (01) ==
LOC: PROCWHC3 07:43
PROVIDERS: ATTEND Internal Medicine
DX: J90 Pleural effusion, not elsewhere classified (principal)
CPT/HCPCS: 32554; 71045; 83615; 84157; 87070; 87075; 87205

== ENCOUNTER → 2018-03-30 | Outpatient (CLI) | payer MEDICARE ==
--- NOTE | 2018-03-30 07:49 | US ---
EXAMINATION TYPE: US chest DATE OF EXAM: 03/30/2018 COMPARISON: Radiograph 03/24/2018 CLINICAL HISTORY: 82-year-old male J90 Pleural Effusion. TECHNIQUE: Targeted ultrasound of the posterior lower bilateral chest EXAM MEASUREMENTS: Right Pleural Effusion pocket size: no fluid seen Left Pleural Effusion pocket size: 9.4 cm A/P Left skin surface to fluid distance: 3.8 cm A/P Left side was marked for possible thoracentesis outside the dept. Pulmonologists are able to review the images in the patient?s EMR. IMPRESSIONS: Continued moderate to large left pleural effusion. Marking was performed. No effusion seen on the rig ht.
== END | disposition home or self-care (01) ==
LOC: RADUSWWP 06:59
PROVIDERS: ATTEND Internal Medicine
DX: J90 Pleural effusion, not elsewhere classified (principal)
CPT/HCPCS: 76604

== ENCOUNTER → 2018-07-14 | Outpatient (CLI) | payer MEDICARE ==
--- NOTE | 2018-07-14 13:11 | XR ---
EXAMINATION TYPE: XR abdomen 2V DATE OF EXAM: 07/14/2018 12:51 PM CLINICAL HISTORY: Catheter placement TECHNIQUE: Single supine KUB image of the abdomen is obtained. COMPARISON: None. FINDINGS: Dialysis catheter projects over the right lower quadrant adjacent to the L5 vertebral body in the anterior abdomen on the lateral view. Extensive degenerative changes of the spine are noted. M oderate degenerative changes of the femoral acetabular joint are seen. Grade 2 anterolisthesis is see n of L5 on S1. No dilated bowel. IMPRESSION: 1. Right lower quadrant peritoneal dialysis catheter placement. 2. Grade 2 anterolisthesis of L5 on S1 with extensive multilevel degenerative change of the lumbar sp ine.
== END | disposition home or self-care (01) ==
LOC: RADXRMAIN 12:28
PROVIDERS: ATTEND Internal Medicine Nephrology
DX: T85.621A Displacement of intraperitoneal dialysis catheter, initial encounter (principal)
CPT/HCPCS: 74019

== ENCOUNTER 2018-10-07 06:35 | Day surgery (SDC) | payer MEDICARE ==
[2018-10-04 16:02] VITALS: BMI 25.0
[~2018-10-07 06:35] MED LIST changes: +DEXAMETHASONE SOD PHOSPHATE 10 MG/ML 1 ML VIAL IV ONE; +HEPARIN SODIUM,PORCINE 5,000 UNIT/ML 1 ML VIAL SQ ONE; +LACTATED RINGERS 1,000 ML IV SCH; +LIDOCAINE 1% 20 ML VIAL (10MG/ML) FOR IV START INTRADERMA PRN; +ONDANSETRON 4 MG/2 ML VIAL IVP ONE; -SODIUM CHLORIDE 0.9% 500 ML 500 ML in EMPTY BAG 1 BAG IV PRN; +ceFAZolin IN SWFI 2 GM/20 ML SYRINGE IVP ONE; +fentaNYL (PF) 50 MCG/ML 2 ML AMP IV PRN
--- NOTE | 2018-10-07 07:45 | P.GSHP ---
History of Present Illness H&P Date: 10/07/18 Patient had dialysis catheter placed weight 2017. Then required a laparoscopic revision. Despite all this the patient has not used his catheter much at all. He was having some leg swelling with use of the catheter. He says he feels better with hemodialysis. He is requesting the catheter be removed at this time. No pain. No nausea or vomiting. Past Medical History Past Medical History: Atrial Fibrillation, COPD, Hyperlipidemia, Hypertension, Renal Disease Additional Past Medical History / Comment(s): HAS HEMODIALYSIS - MON,WED, FRI , GLAUCOMA,MACULAR DEGENERATION History of Any Multi-Drug Resistant Organisms: None Reported Past Surgical History: Hernia Repair Additional Past Surgical History / Comment(s): Mastoid surgery X3 Past Anesthesia/Blood Transfusion Reactions: Previous Problems w/ Anesthesia Additional Past Anesthesia/Blood Transfusion Reaction / Comment(s): STATES TOOK LONGER WAKING UP Smoking Status: Former smoker - Past Family History Sister(s) Family Medical History: Cancer Son(s) Family Medical History: Cancer Father Family Medical History: Asthma Mother Family Medical History: Hypertension Medications and Allergies Home Medications Medication Instructions Recorded Confirmed Type Brimonidine Tartrate [Alphagan P 1 drop BOTH EYES BID 12/10/14 10/07/18 History 0.1% Ophth Soln] Timolol 0.5% Ophth Soln [Timoptic 1 drop BOTH EYES DAILY 12/11/14 10/07/18 History 0.5% Ophth Soln] Allopurinol [Zyloprim] 100 mg PO HS 12/27/17 10/04/18 History Cholecalciferol (Vitamin D3) 1,000 unit PO HS 12/27/17 10/04/18 History [Vitamin D3] Warfarin [Coumadin] 2.5 mg PO SUMOWEFR 12/27/17 10/04/18 History Warfarin [Coumadin] 5 mg PO TUTHSA 12/27/17 10/04/18 History rOPINIRole HCL [Requip] 4 mg PO HS 12/27/17 10/04/18 History Melatonin 10 mg PO HS 01/24/18 10/04/18 History Tamsulosin HCl [Flomax] 0.4 mg PO BID 01/24/18 10/04/18 History Midodrine [ProAmatine] 10 mg PO AC-TID #180 tab 01/31/18 10/04/18 Rx B Complex W-C No.20/Folic Acid 1 mg PO DAILY 10/04/18 10/04/18 History [Renal Caps Softgel] Furosemide [Lasix] 60 mg PO DAILY 10/04/18 10/04/18 History Pravastatin Sodium [Pravachol] 20 mg PO HS 10/04/18 10/04/18 History Allergies Allergy/AdvReac Type Severity Reaction Status Date / Time No Known Allergies Allergy Verified 10/07/18 06:50 Surgical - Exam Vital Signs Temp Pulse Resp BP Pulse Ox 97.3 F L 83 16 96/53 98 10/07/18 06:54 10/07/18 06:54 10/07/18 06:54 10/07/18 06:54 10/07/18 06:54 Physical exam: General: Well-developed, well-nourished HEENT: Normocephalic, sclerae nonicteric Abdomen: Nontender, nondistended, peritoneal catheter noted Extremities: No edema Neuro: Alert and oriented Assessment and Plan (1) Acute on chronic renal failure Narrative/Plan: Will proceed with peritoneal dialysis cath removal at this time. Current Visit: No Status: Acute Code(s): N17.9 - ACUTE KIDNEY FAILURE, UNSPECIFIED SNOMED Code(s): 820981593
[2018-10-07] MEDS ORDERED: PROPOFOL 10 MG/ML 20 ML VIAL IV ONE (08:09)
[2018-10-07] MEDS ORDERED: PHENYLEPHRINE-0.9% NACL SYG 1 MG/10 ML SYRINGE ONE (08:09)
[2018-10-07] MEDS ORDERED: HEPARIN SODIUM,PORCINE 5,000 UNIT/ML 1 ML VIAL ONE (08:09)
[2018-10-07] MEDS ORDERED: ceFAZolin 1,000 MG VIAL ONE (08:09)
[2018-10-07] MEDS ORDERED: fentaNYL (PF) 50 MCG/ML 2 ML AMP ONE (08:09)
[2018-10-07] MEDS ORDERED: SUCCINYLCHOLINE CHLORIDE 100 MG/5 ML SYR IV ONE (08:09)
[2018-10-07] MEDS ORDERED: BUPIVACAIN-EPI 0.5%-1:200,000 30 ML VIAL SQ ONE ×2 (08:44)
[2018-10-07 09:15] VITALS: TEMP 97.7
[2018-10-07] MEDS ORDERED: NALOXONE 0.4 MG/ML 1 ML VIAL IV PRN (09:17)
--- NOTE | 2018-10-07 09:18 | P.OP ---
Date of Procedure: 10/07/18 Procedure(s) Performed: PREOPERATIVE DIAGNOSIS: Renal failure POSTOPERATIVE DIAGNOSIS: Same PROCEDURE: PD cath removal SURGEON: Neyda EBL: 2 mL ANESTHESIA: General COMPLICATIONS: None OPERATIVE PROCEDURE: Patient was placed in the supine position. The abdomen was prepped and draped in usual sterile fashion. The previous paramedian incision was re-incised after localizing the skin. The subcutaneous tissues were divided using electrocautery. Blunt dissection around the cuff that was present at the fascia and peritoneum took place. The cuff was fully mobilized. The catheter was removed from the perineal cavity. The outer cuff was dissected from the saphenous fascia using electrocautery. The catheter was cut on the other side of that cuff and the catheter was removed. The fascial defect was closed using a single [id number] 0 Vicryl stitch. The subcutaneous tissues were closed using 3-0 Vicryl sutures and the skin using 4-0 Monocryl sutures. Skin glue was then applied. DISPOSITION: Stable to recovery room
[2018-10-07 10:10] VITALS: RESP 20
[2018-10-07 10:51] VITALS: BP 111/67; PULSE 93
== END 2018-10-07 11:11 | disposition home or self-care (01) ==
LOC: OR 06:35
PROVIDERS: ATTEND Surgery
DX: T85.898A Other specified complication of other internal prosthetic devices, implants and grafts, initial encounter (principal); I12.0 Hypertensive chronic kidney disease with stage 5 chronic kidney disease or end stage renal disease; N18.6 End stage renal disease; N17.9 Acute kidney failure, unspecified; I48.91 Unspecified atrial fibrillation; E78.5 Hyperlipidemia, unspecified; J44.9 Chronic obstructive pulmonary disease, unspecified; Z99.2 Dependence on renal dialysis; H35.30 Unspecified macular degeneration; H40.9 Unspecified glaucoma; Z87.891 Personal history of nicotine dependence; Z79.01 Long term (current) use of anticoagulants; Z79.899 Other long term (current) drug therapy
CPT/HCPCS: 49422; 84132; J1644; J0690; J3010; J2370; J0330; J2704

== ENCOUNTER 2019-01-24 04:22 | Observation (INO) | payer MEDICARE ==
[2019-01-24] MEDS ORDERED: LIDOCAINE 1%-EPI 1:100,000 20 ML VIAL SQ STA (04:43)
--- NOTE | 2019-01-24 05:11 | ED ---
Fall HPI - General Chief Complaint: Fall Stated Complaint: Fall Time Seen by Provider: 01/24/19 04:31 Source: patient Mode of arrival: EMS - History of Present Illness Initial Comments: Andrew an 83-year-old gentleman with extensive past medical history most significant for end-stage renal disease on hemodialysis Wednesday, chronic hypotension for which he takes Midrin 6 times daily. Patient presents to the emergency department today via EMS after an apparent fall at home. Patient reports that he's been having trouble sleeping and yesterday was prescribed a sleeping medication, in addition to taking that he fell his restless leg was worse than usual and took an extra dose of his Requip. Patient reports he was then sitting at his computer desk when he must have fallen asleep and fallen on the desk. He is not certain what happened. He woke up on the ground with bruising to his face and a laceration on his forehead which prompted his to call EMS for transport to the hospital. Patient does not believe he lost consciousness but is uncertain. He is on Coumadin. - Related Data Home Medications Medication Instructions Recorded Confirmed Brimonidine Tartrate [Alphagan P 1 drop BOTH EYES BID 12/10/14 10/07/18 0.1% Ophth Soln] Timolol 0.5% Ophth Soln [Timoptic 1 drop BOTH EYES DAILY 12/11/14 10/07/18 0.5% Ophth Soln] Allopurinol [Zyloprim] 100 mg PO HS 12/27/17 10/04/18 Cholecalciferol (Vitamin D3) 1,000 unit PO HS 12/27/17 10/04/18 [Vitamin D3] Warfarin [Coumadin] 2.5 mg PO SUMOWEFR 12/27/17 10/04/18 Warfarin [Coumadin] 5 mg PO TUTHSA 12/27/17 10/04/18 rOPINIRole HCL [Requip] 4 mg PO HS 12/27/17 10/04/18 Melatonin 10 mg PO HS 01/24/18 10/04/18 Tamsulosin HCl [Flomax] 0.4 mg PO BID 01/24/18 10/04/18 B Complex W-C No.20/Folic Acid 1 mg PO DAILY 10/04/18 10/04/18 [Renal Caps Softgel] Furosemide [Lasix] 60 mg PO DAILY 10/04/18 10/04/18 Pravastatin Sodium [Pravachol] 20 mg PO HS 10/04/18 10/04/18 Previous Rx's Medication Instructions Recorded Midodrine [ProAmatine] 10 mg PO AC-TID #180 tab 01/31/18 Allergies Allergy/AdvReac Type Severity Reaction Status Date / Time No Known Allergies Allergy Verified 01/24/19 04:28 Review of Systems ROS Statement: Those systems with pertinent positive or pertinent negative responses have been documented in the HPI. ROS Other: All systems not noted in ROS Statement are negative. Past Medical History Past Medical History: Atrial Fibrillation, COPD, Hyperlipidemia, Hypertension, Renal Disease Additional Past Medical History / Comment(s): HAS HEMODIALYSIS - MON,WED, FRI , GLAUCOMA,MACULAR DEGENERATION History of Any Multi-Drug Resistant Organisms: None Reported Past Surgical History: Hernia Repair Additional Past Surgical History / Comment(s): Mastoid surgery X3 Past Anesthesia/Blood Transfusion Reactions: Previous Problems w/ Anesthesia Additional Past Anesthesia/Blood Transfusion Reaction / Comment(s): STATES TOOK LONGER WAKING UP Past Psychological History: No Psychological Hx Reported Smoking Status: Former smoker Past Alcohol Use History: None Reported Past Drug Use History: None Reported - Past Family History Sister(s) Family Medical History: Cancer Son(s) Family Medical History: Cancer Father Family Medical History: Asthma Mother Family Medical History: Hypertension General Exam - General Exam Comments Initial Comments: Physical Exam GENERAL: Chronically ill appearing elderly gentleman HENT: To simulator laceration over the left eyebrow with a small arterial bleed Significant contusion around the right eye No greene signs or raccoon eyes EYES: PERRL, EOMI PULMONARY: Crackles at bases CARDIOVASCULAR: RRR ABDOMEN: Soft and nontender with normal bowel sounds. SKIN: Multiple bruises in multiple stages of healing : Deferred NEUROLOGIC: Alert and oriented to person, place, year, does not recall fall or events leading up to hospitalization MUSCULOSKELETAL: Normal extremities with adequate strength and full range of motion. No lower extremity swelling or edema. No calf tenderness. PSYCHIATRIC: Normal psychiatric evaluation. Limitations: no limitations Course Vital Signs 01/24/19 01/24/19 01/24/19 04:24 05:36 06:20 Temperature 97.7 F Pulse Rate 101 H 90 86 Respiratory 18 18 Rate Blood Pressure 93/64 109/74 101/68 O2 Sat by Pulse 90 L 95 98 Oximetry Procedures - Laceration Laceration #1 Consent Obtained: verbal consent Indication: laceration Site: face Size (cm): 3 Description: irregular Depth: simple, single layer Anesthesia Technique: local infiltration Amount (mls): 3 Pre-repair: wound explored, deep structures intact Type of Sutures: nylon, vicryl Size of Sutures: 5-0 Number of Sutures: 6 Technique: simple, interrupted Patient Tolerated Procedure: well, no complications Medical Decision Making - Medical Decision Making The patient was seen and evaluated, history is obtained from the patient and EMS Labs and imaging were ordered Ulceration over the left eyebrow had small arterial bleed and decision was made to close this laceration prior to CT imaging, the wound was cleansed anesthetized with lidocaine with epinephrine and repaired with 6 sutures there was 1 dissolvable suture placed in a [id number] around the bleeding vessel. Patient taken to CT - no acute findings Labs at baseline INR 2.5 Patient with hypotensive - per usual for patient according to patient and Given we do not know the circumstance in which the patient fell, I do feel he would benefit from further observation and possible discussion of physical therapy. Patient's is agreeable to this and she is concerned about his falls at home. Patient will be admitted to the [facility] hospitalist group, trauma surgeon Dr. Echeverria will be placed on consult. - Lab Data Result diagrams: 01/24/19 05:33 Lab Results 01/24/19 01/24/19 01/24/19 Range/Units 04:51 05:33 05:33 WBC (3.8-10.6) k/uL RBC (4.30-5.90) m/uL Hgb (13.0-17.5) gm/dL Hct (39.0-53.0) % MCV (80.0-100.0) fL MCH (25.0-35.0) pg MCHC (31.0-37.0) g/dL RDW (11.5-15.5) % Plt Count (150-450) k/uL Neutrophils % % Lymphocytes % % Monocytes % % Eosinophils % % Basophils % % Neutrophils # (1.3-7.7) k/uL Lymphocytes # (1.0-4.8) k/uL Monocytes # (0-1.0) k/uL Eosinophils # (0-0.7) k/uL Basophils # (0-0.2) k/uL Macrocytosis PT (9.0-12.0) sec INR (<1.2) APTT (22.0-30.0) sec Troponin I 0.013 (0.000-0.034) ng/mL Blood Type A Positive Blood Type Confirm Blood Type Recheck No Previous Record Bld Type Recheck Status CABO Indicated Antibody Screen NEGATIVE Spec Expiration Date 01/27/2019 - 235001/24/19 01/24/19 01/24/19 Range/Units 05:33 05:33 05:34 WBC 5.3 (3.8-10.6) k/uL RBC 3.50 L (4.30-5.90) m/uL Hgb 11.7 L (13.0-17.5) gm/dL Hct 36.1 L (39.0-53.0) % MCV 103.2 H (80.0-100.0) fL MCH 33.5 (25.0-35.0) pg MCHC 32.5 (31.0-37.0) g/dL RDW 14.9 (11.5-15.5) % Plt Count 102 L (150-450) k/uL Neutrophils % 68 % Lymphocytes % 12 % Monocytes % 10 % Eosinophils % 4 % Basophils % 3 % Neutrophils # 3.6 (1.3-7.7) k/uL Lymphocytes # 0.6 L (1.0-4.8) k/uL Monocytes # 0.6 (0-1.0) k/uL Eosinophils # 0.2 (0-0.7) k/uL Basophils # 0.1 (0-0.2) k/uL Macrocytosis Slight PT 24.4 H (9.0-12.0) sec INR 2.5 H (<1.2) APTT 43.5 H (22.0-30.0) sec Troponin I (0.000-0.034) ng/mL Blood Type Blood Type Confirm A Positive Blood Type Recheck Bld Type Recheck Status Antibody Screen Spec Expiration Date - EKG Data -: EKG Interpreted by Me EKG Comments: EKG was obtained due to complaint of possible syncope, EKG obtained at 4:35 AM, rate is 80 rhythm is A. fib, QRS 76, QTC prolonged at [address] elevations or depressions and no evidence of acute ischemia or infarction. Disposition Clinical Impression: Fall, ESRD (end stage renal disease) on dialysis, Facial laceration, Hypotension Disposition: ADMITTED IP TO THIS HOSP Condition: Serious Referrals: Vaibhav Ortiz MD [Primary Care Provider] - 1-2 days
--- NOTE | 2019-01-24 05:43 | CT ---
EXAM: CT Head and Maxillofacial Without Intravenous Contrast CLINICAL HISTORY: ITS.REASON CT Reason: trauma TECHNIQUE: Axial computed tomography images of the head/brain and face without intravenous contrast. CTDI is 10 mGy and DLP is 348 mGy-cm. This CT exam was performed using one or more of the following dose reduction techniques: automated exposure control, adjustment of the mA and/or kV according to patient size, and/or use of iterative reconstruction technique. COMPARISON: No relevant prior studies available. FINDINGS: Bones/joints: No acute fracture. Soft tissues: Frontal scalp soft tissue swelling. Sinuses: Partially collapsed partially opacified left maxillary sinus with hyperostosis. No acute sinusitis. Mastoid air cells: Unremarkable. No mastoid effusion. Orbits: Unremarkable. IMPRESSION: No acute fracture. Left maxillary silent sinus syndrome.
--- NOTE | 2019-01-24 05:49 | CT ---
EXAM: CT Head Without Intravenous Contrast CLINICAL HISTORY: ITS.REASON CT Reason: trauma TECHNIQUE: Axial computed tomography images of the head/brain without intravenous contrast. CTDI is 26 mGy and DLP is 764 mGy-cm. This CT exam was performed using one or more of the following dose reduction techniques: automated exposure control, adjustment of the mA and/or kV according to patient size, and/or use of iterative reconstruction technique. COMPARISON: 12/10/14 CT head FINDINGS: Brain: No hemorrhage, large hypodensity, or mass effect. Chronic microvascular ischemic changes. Ventricles: No hydrocephalus. Age related cerebral volume loss. Bones/joints: Unremarkable. Soft tissues: Frontal scalp soft tissue swelling. Sinuses: Unremarkable. Mastoid air cells: Clear. Left mastoidectomy IMPRESSION: No acute hemorrhage, hydrocephalus, or mass effect. EXAM: CT Cervical Spine Without Intravenous Contrast CLINICAL HISTORY: ITS.REASON CT Reason: trauma TECHNIQUE: Axial computed tomography images of the cervical spine without intravenous contrast. CTDI is 11 mGy and DLP is 348 mGy-cm. This CT exam was performed using one or more of the following dose reduction techniques: automated exposure control, adjustment of the mA and/or kV according to patient size, and/or use of iterative reconstruction technique. COMPARISON: 12/10/14 CT cervical spine FINDINGS: Vertebrae: No acute fracture. Discs/spinal canal/neural foramina: Large bridging osteophytes consistent with DISH. MILD SPINAL CANAL STENOSIS AT C6-7 AND C4-5. Soft tissues: Unremarkable. IMPRESSION: No acute fracture or subluxation.
--- NOTE | 2019-01-24 05:50 | XR ---
EXAM: XR Chest, 1 View CLINICAL HISTORY: ITS.REASON XR Reason: trauma TECHNIQUE: Frontal view of the chest. COMPARISON: 09/01/18 IMPRESSION: Cardiomegaly. Loculated left-sided moderate pleural effusion. Trace right pleural effusion. Bibasilar atelectasis versus aspiration.
[2019-01-24 05:51] LABS: INR 2.5 (<1.2); Partial Thromboplastin Time 43.5 sec (22.0-30.0); Prothrombin Time 24.4 sec (9.0-12.0)
--- NOTE | 2019-01-24 05:51 | XR ---
EXAM: XR Pelvis, 1 or 2 Views CLINICAL HISTORY: ITS.REASON XR Reason: Trauma TECHNIQUE: Frontal view of the pelvis. COMPARISON: No relevant prior studies available. FINDINGS: Bones/joints: No acute fracture. No dislocation. Mild osteoarthrosis bilaterally. Soft tissues: Unremarkable. IMPRESSION: No acute findings.
[2019-01-24 05:52] LABS: Basophils # (A) 0.1 k/uL (0-0.2); Basophils % (A) 3 %; Eosinophils # (A) 0.2 k/uL (0-0.7); Eosinophils % (A) 4 %; HCT 36.1 % (39.0-53.0); HGB 11.7 gm/dL (13.0-17.5); Lymphocytes # (A) 0.6 k/uL (1.0-4.8); Lymphocytes % (A) 12 %; MCH 33.5 pg (25.0-35.0); MCHC 32.5 g/dL (31.0-37.0); MCV 103.2 fL (80.0-100.0); Macrocytosis Slight; Mean Platelet Volume 8.8; Monocytes # (A) 0.6 k/uL (0-1.0); Monocytes % (A) 10 %; Neutrophils # (A) 3.6 k/uL (1.3-7.7); Neutrophils % (A) 68 %; Platelet Count 102 k/uL (150-450); RDW 14.9 % (11.5-15.5); WBC 5.3 k/uL (3.8-10.6)
[2019-01-24] MEDS ORDERED: MIDODRINE 5 MG TAB PO STA (05:56)
[2019-01-24] MEDS ORDERED: NALOXONE 0.4 MG/ML 1 ML VIAL IV PRN (06:12)
[2019-01-24 06:29] LABS: ALT 11 U/L (21-72); AST 37 U/L (17-59); African American GFR (CKD) 16 (>60 ml/min/1.73 sqM); Albumin 3.6 g/dL (3.5-5.0); Alcohol <10 mg/dL; Alkaline Phosphatase 291 U/L (38-126); Anion Gap 11 mmol/L; Blood Urea Nitrogen 45 mg/dL (9-20); Calcium 9.1 mg/dL (8.4-10.2); Carbon Dioxide 32 mmol/L (22-30); Chloride 93 mmol/L (98-107); Glucose 94 mg/dL (74-99); Potassium 5.6 mmol/L (3.5-5.1); Sodium 136 mmol/L (137-145); Total Bilirubin 1.3 mg/dL (0.2-1.3); Total Protein 6.6 g/dL (6.3-8.2)
[2019-01-24] MEDS ORDERED: WARFARIN 5 MG TAB PO SCH (09:00)
[2019-01-24] MEDS ORDERED: ACETAMINOPHEN TAB 325 MG TAB PO PRN (09:15)
--- NOTE | 2019-01-24 11:22 | US ---
EXAMINATION TYPE: US chest DATE OF EXAM: 01/24/2019 COMPARISON: Chest x-ray from earlier today. CLINICAL HISTORY: Left pleural effusion. TECHNIQUE: Targeted ultrasound of the posterior lower left hemithorax EXAM MEASUREMENTS: Left Pleural Effusion pocket size: 4.3 cm Left skin surface to fluid distance: 3.2 cm Left side marked for possible thoracentesis outside the dept. Pulmonologists are able to review the images in the patient?s EMR. IMPRESSIONS: Confirmation of small to moderate size nonsimple pleural fluid collection on images save d as there is septations noted. Findings correlate with the x-ray.
--- NOTE | 2019-01-24 11:54 | P.NPCON ---
History of Present Illness - Reason for Consult end stage renal disease - History of Present Illness Reason for consultation: End-stage renal disease History of present illness: Patient is a 83-year-old male seen in renal consultation for end-stage renal disease. He is maintained on hemodialysis on a Wednesday schedule the AV fistula. Patient has a difficult time sleeping at night and also has restless leg syndrome. Patient went downstairs at 3 in the morning and fell asleep on the chair. He then sustained a fall and has a laceration on his face. He did require stitches in the ER. No chest pain or shortness of breath. No vomiting or diarrhea. Last hemodialysis was yesterday. Hemodynamically stable. Hemoglobin 11.7 this morning. He is noted to have left-sided pleural effusion and underwent chest ultrasound this morning. Computed tomography scan of the head revealed no acute changes. No acute fractures noted. Vital signs are stable. General: The patient appeared well nourished and normally developed. HEENT: Head exam is unremarkable. Neck is without jugular venous distension. Bruising on the face noted. LUNGS: Lungs are clear to auscultation and percussion. Breath sounds decreased. HEART: Rate and Rhythm are regular. First and second heart sounds normal. No murmurs, rubs or gallops. ABDOMEN: Abdominal exam reveals normal bowel sounds. Non-tender and non-d istended. No evidence of peritonitis. EXTREMITITES: 1+ edema. Past Medical History Past Medical History: Atrial Fibrillation, COPD, Hyperlipidemia, Hypertension, Renal Disease Additional Past Medical History / Comment(s): HAS HEMODIALYSIS - WED,WED, WED , GLAUCOMA,MACULAR DEGENERATION History of Any Multi-Drug Resistant Organisms: None Reported Past Surgical History: Hernia Repair Additional Past Surgical History / Comment(s): Mastoid surgery X3 Past Anesthesia/Blood Transfusion Reactions: Previous Problems w/ Anesthesia Additional Past Anesthesia/Blood Transfusion Reaction / Comment(s): STATES TOOK LONGER WAKING UP Past Psychological History: No Psychological Hx Reported Smoking Status: Former smoker Past Alcohol Use History: None Reported Past Drug Use History: None Reported - Past Family History Sister(s) Family Medical History: Cancer Son(s) Family Medical History: Cancer Father Family Medical History: Asthma Mother Family Medical History: Hypertension Medications and Allergies Home Medications Medication Instructions Recorded Confirmed Type Brimonidine Tartrate [Alphagan P 1 drop BOTH EYES BID 12/10/14 01/24/19 History 0.1% Ophth Soln] Timolol 0.5% Ophth Soln [Timoptic 1 drop BOTH EYES DAILY 12/11/14 01/24/19 History 0.5% Ophth Soln] Allopurinol [Zyloprim] 100 mg PO HS 12/27/17 01/24/19 History Warfarin [Coumadin] 2.5 mg PO SUTUWEFRSA 12/27/17 01/24/19 History Warfarin [Coumadin] 5 mg PO MOTH 12/27/17 01/24/19 History rOPINIRole HCL [Requip] 4 mg PO TID 12/27/17 01/24/19 History Tamsulosin HCl [Flomax] 0.4 mg PO BID 01/24/18 01/24/19 History Midodrine [ProAmatine] 10 mg PO AC-TID #180 tab 01/31/18 01/24/19 Rx Pravastatin Sodium [Pravachol] 20 mg PO HS 10/04/18 01/24/19 History Carbidopa-Levodopa 25-100 mg 1 tab PO BID 01/24/19 01/24/19 History [Sinemet 25-100] Doxepin [SINEquan] 10 mg PO HS 01/24/19 01/24/19 History Furosemide [Lasix] 60 mg PO BID 01/24/19 01/24/19 History Prorenal + D 1 tab PO DAILY 01/24/19 01/24/19 History levOCARNitine [Levocarnitine] 330 mg PO TID-W/MEALS 01/24/19 01/24/19 History Allergies Allergy/AdvReac Type Severity Reaction Status Date / Time No Known Allergies Allergy Verified 01/24/19 07:01 Physical Exam Vitals: Vital Signs Temp Pulse Pulse Resp BP BP Pulse Ox 01/24/19 09:10 97.7 F 84 17 108/68 94 L 01/24/19 06:52 97.7 F 01/24/19 06:20 86 18 101/68 98 01/24/19 05:36 90 109/74 95 01/24/19 04:24 97.7 F 101 H 18 93/64 90 L Intake and Output 01/23/19 01/24/19 01/24/19 22:59 06:59 14:59 Other: Weight 69 kg Results - Lab Results Most recent lab results Calcium 9.1 mg/dL (8.4-10.2) 01/24/19 05:33 01/24/19 05:33 01/24/19 05:33 Assessment and Plan Plan: Assessment: 1. End-stage renal disease maintained on hemodialysis on Wednesday schedule V AV fistula. 2. Status post fall. 3. Systolic CHF with ejection fraction of 40-45%. 4. Volume overload. 5. Left-sided pleural effusion. Underwent chest ultrasound this morning. 6. Chronic hypotension maintained on midodrine. 7. Hyperkalemia secondary to chronic kidney disease. Plan: Short hemodialysis treatment today due to hyperkalemia and edema. Another treatment tomorrow per his outpatient schedule. Thank you for the consultation. I will continue to follow the patient with you during his hospital stay.
[2019-01-24] MEDS: rOPINIRole HCL 4 MG TABLET PO SCH ×3 (13:00→21:23)
[2019-01-24] MEDS: FOLIC ACID-VIT B COMPLEX-VIT C 1 CAP PO SCH (13:00)
[2019-01-24] MEDS: CARBIDOPA-LEVODOPA 25-100 MG 1 EACH TAB PO SCH ×2 (13:01→21:24)
[2019-01-24] MEDS: TAMSULOSIN 0.4 MG CAP.ER.24H PO SCH ×2 (13:01→21:23)
[2019-01-24] MEDS: TIMOLOL 0.5% OPHTH DROPS 5 ML BTL BOTH EYES SCH (13:02)
[2019-01-24] MEDS: BRIMONIDINE TARTRATE 0.2% DROPS 5 ML BTL BOTH EYES SCH ×2 (13:02→21:25)
[2019-01-24] MEDS: levOCARNitine (WITH SUGAR) 100 MG/ML BOTTLE PO SCH ×2 (13:03→17:52)
[2019-01-24] MEDS: MIDODRINE 5 MG TAB PO SCH ×2 (13:03→15:37)
--- NOTE | 2019-01-24 14:07 | P.HPIM ---
History of Present Illness This is a pleasant 83 years old female with past medical history of atrial fibrillation, COPD, hypertension, hyperlipidemia, chronic kidney end-stage kidney disease on hemodialysis, glaucoma and macular degeneration of the eye, he presents because of fall. Patient is poor historian and information was taking the help with the at bedside. The states that last night the was calling for her , she found him sitting in the floor of the kitchen and there were blood covering him Due to facial trauma. Patient was awake. He stated that he started doxazosin 1 night before. Also patient was feeling lightheadedness after hemodialysis yesterday but not anymore or when he fell down. He denies syncope. Patient also complaining of from cough and with phlegm on and off, which was getting worse lately associated with some exertional dyspnea. Also states that ever he eats he started coughing suspicious for swallowing difficulties. He follows with Dr. Peoples his primary care physician, he has history of COPD. 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 Liver enzymes not elevated and troponin is negative at 0.013. Serum alcohol level less than 10, EKG showing atrial fibrillation at [address]-T changes, pelvis x-ray showing no acute fracture. CT of the brain and cervical spine: No hemorrhage or fracture. Chest x-ray: Left loculated left-sided moderate pleural effusion and trace right pleural effusion and bibasilar atelectasis versus aspiration. CAT scan of the face showing no acute fracture. An Emergency room patient was given pain management Thoracic ultrasound showed a pocket of 4 cm fluid on the left side. Review of Systems CONSTITUTIONAL: No fever, no malaise, no fatigue. HEENT: No recent visual problems or hearing problems. Denied any sore throat. CARDIOVASCULAR: No orthopnea, PND, no palpitations, no syncope. PULMONARY: No shortness of breath, no cough, no hemoptysis. GASTROINTESTINAL: No diarrhea, no nausea, no vomiting, no abdominal pain. Norm oactive bowel sounds. NEUROLOGICAL: No headaches, no weakness, no numbness. HEMATOLOGICAL: Denies any bleeding or petechiae. GENITOURINARY: Denies any burning micturition, frequency, or urgency. MUSCULOSKELETAL/RHEUMATOLOGICAL: Denies any joint pain, swelling, or any muscle pain. ENDOCRINE: Denies any polyuria or polydipsia. Past Medical History Past Medical History: Atrial Fibrillation, COPD, Hyperlipidemia, Hypertension, Renal Disease Additional Past Medical History / Comment(s): HAS HEMODIALYSIS - MON,WED, FRI , GLAUCOMA,MACULAR DEGENERATION History of Any Multi-Drug Resistant Organisms: None Reported Past Surgical History: Hernia Repair Additional Past Surgical History / Comment(s): Mastoid surgery X3 Past Anesthesia/Blood Transfusion Reactions: Previous Problems w/ Anesthesia Additional Past Anesthesia/Blood Transfusion Reaction / Comment(s): STATES TOOK LONGER WAKING UP Past Psychological History: No Psychological Hx Reported Smoking Status: Former smoker Past Alcohol Use History: None Reported Past Drug Use History: None Reported - Past Family History Sister(s) Family Medical History: Cancer Son(s) Family Medical History: Cancer Father Family Medical History: Asthma Mother Family Medical History: Hypertension Medications and Allergies Home Medications Medication Instructions Recorded Confirmed Type Brimonidine Tartrate [Alphagan P 1 drop BOTH EYES BID 12/10/14 01/24/19 History 0.1% Ophth Soln] Timolol 0.5% Ophth Soln [Timoptic 1 drop BOTH EYES DAILY 12/11/14 01/24/19 History 0.5% Ophth Soln] Allopurinol [Zyloprim] 100 mg PO HS 12/27/17 01/24/19 History Warfarin [Coumadin] 2.5 mg PO SUTUWEFRSA 12/27/17 01/24/19 History Warfarin [Coumadin] 5 mg PO MOTH 12/27/17 01/24/19 History rOPINIRole HCL [Requip] 4 mg PO TID 12/27/17 01/24/19 History Tamsulosin HCl [Flomax] 0.4 mg PO BID 01/24/18 01/24/19 History Midodrine [ProAmatine] 10 mg PO AC-TID #180 tab 01/31/18 01/24/19 Rx Pravastatin Sodium [Pravachol] 20 mg PO HS 10/04/18 01/24/19 History Carbidopa-Levodopa 25-100 mg 1 tab PO BID 01/24/19 01/24/19 History [Sinemet 25-100] Doxepin [SINEquan] 10 mg PO HS 01/24/19 01/24/19 History Furosemide [Lasix] 60 mg PO BID 01/24/19 01/24/19 History Prorenal + D 1 tab PO DAILY 01/24/19 01/24/19 History levOCARNitine [Levocarnitine] 330 mg PO TID-W/MEALS 01/24/19 01/24/19 History Allergies Allergy/AdvReac Type Severity Reaction Status Date / Time No Known Allergies Allergy Verified 01/24/19 07:01 Physical Exam Vitals: Vital Signs Temp Pulse Pulse Resp BP BP Pulse Ox 01/24/19 09:10 97.7 F 84 17 108/68 94 L 01/24/19 06:52 97.7 F 01/24/19 06:20 86 18 101/68 98 01/24/19 05:36 90 109/74 95 01/24/19 04:24 97.7 F 101 H 18 93/64 90 L Intake and Output 01/23/19 01/24/19 01/24/19 22:59 06:59 14:59 Other: Weight 69 kg GENERAL: The patient is alert and oriented x3, not in any acute distress. Well developed, well nourished. HEENT: Pupils are round and equally reacting to light. EOMI. No scleral icterus. No conjunctival pallor. Normocephalic, atraumatic. No pharyngeal erythema. No thyromegaly. CARDIOVASCULAR: S1 and S2 present. No murmurs, rubs, or gallops. -PULMONARY: Chest is clear to auscultation,. Decreased breath sounds more on the left lower side. Scattered crepitation ABDOMEN: Soft, nontender, nondistended, normoactive bowel sounds. No palpable organomegaly. MUSCULOSKELETAL: No joint swelling or deformity. EXTREMITIES: No cyanosis, clubbing, or pedal edema. NEUROLOGICAL: Gross neurological examination did not reveal any focal deficits. SKIN: No rashes. Results CBC & Chem 7: 01/24/19 05:33 01/24/19 05:33 Labs: Abnormal Lab Results - Last 24 Hours (Table) 01/24/19 01/24/19 01/24/19 Range/Units 05:33 05:33 05:33 RBC 3.50 L (4.30-5.90) m/uL Hgb 11.7 L (13.0-17.5) gm/dL Hct 36.1 L (39.0-53.0) % MCV 103.2 H (80.0-100.0) fL Plt Count 102 L (150-450) k/uL Lymphocytes # 0.6 L (1.0-4.8) k/uL PT 24.4 H (9.0-12.0) sec INR 2.5 H (<1.2) APTT 43.5 H (22.0-30.0) sec Sodium 136 L (137-145) mmol/L Potassium 5.6 H (3.5-5.1) mmol/L Chloride 93 L (98-107) mmol/L Carbon Dioxide 32 H (22-30) mmol/L BUN 45 H (9-20) mg/dL Creatinine 3.84 H (0.66-1.25) mg/dL ALT 11 L (21-72) U/L Alkaline Phosphatase 291 H (38-126) U/L Assessment and Plan Assessment: Fall Left pleural effusion with atelectasis versus pneumonia. With coughing Patient status cough whenever he eats. To rule out swallowing abnormality or difficulty. History of Parkinson disease End-stage kidney disease on hemodialysis and COPD Chronic atrial fibrillation Hypertension History of glaucoma and macular degeneration of the eye Chronic thrombocytopenia Plan: this is a pleasant 83 years old female who presents because of fall, we'll order chest ultrasound and call pulmonary consult. Also we will ask physical therapy evaluation. He'll call nephrology consult. Surgical consult for facial wound. We'll check swallow evaluation . Neuro check for the first 24 hours Labs and medication were reviewed.. Continue same treatment. Continue with symptomatic treatment. Resume home medication. Monitor lytes and vitals. DVT and GI prophylaxis. Further recommendations of the clinical course of the patient DVT prophylaxis: Subcutaneous heparin GI Prophylaxis: Pepcid PT/OT: Pending Prognosis is guarded
--- NOTE | 2019-01-24 14:16 | FL ---
MODIFIED SWALLOW / DEGLUTITION STUDY DATE OF EXAM: 01/24/2019 CLINICAL HISTORY: 83-year-old male fall, pain, coughing with eating, dysphagia. TECHNIQUE: Deglutition study is performed utilizing thin liquid barium, honey and nectar thick liqui d barium, barium thick applesauce, and barium coated cracker. COMPARISON: None. Total fluoroscopy time: 3 minutes. Total images: None. Real-time fluoroscopy support was provided to speech pathology. FINDINGS: Swallow initiation was mildly delayed with bolus free spilling to the level of the vallecula. The oral phase shows satisfactory initiation and propagation with all modalities tested. Normal mast ication is seen with solid modalities tested. There is deep penetration to the falciform cords with thin liquid. Mild penetration is noted with nec tar liquid. Intermittent posterior wall residuals are demonstrated along with persistent moderate vallecular resi duals. IMPRESSION: 1. Swallow initiation delay. 2. Deep penetration with thin liquids and mild penetration with nectar liquids. No aspiration visuali zed during this course of the exam. 3. Moderate vallecular residuals. Please refer to speech therapist notes for further details if necessary.
[2019-01-24 15:23] LABS: Appearance,Urine Clear (Clear); Bilirubin,Urine Negative (Negative); Blood,Urine Negative (Negative); Color,Urine Yellow; Glucose,Urine (UA) Negative (Negative); Hyaline Casts,Urine 1 /lpf (0-2); Ketones,Urine Negative (Negative); Leukocyte Esterase,Urine Negative (Negative); Mucus,Urine Rare /hpf; Nitrite,Urine Negative (Negative); Protein,Urine 1+ (Negative); RBC,Urine <1 /hpf (0-5); Specific Gravity,Urine 1.011 (1.001-1.035); Urobilinogen,Urine <2.0 mg/dL (<2.0)
--- NOTE | 2019-01-24 15:29 | P.GSCN ---
History of Present Illness Consult date: 01/24/19 Reason for Consult: fall, facial lac Requesting physician: Camilla Gilbert History of present illness: CHIEF COMPLAINT: fall HISTORY OF PRESENT ILLNESS: 83-year-old male who presented to the hospital after sustaining a fall at home. Apparently the patient was recently prescribed a new sleeping medication and also took an extra dose of his Requip. Patient was found on the floor by his next to his computer desk. Patient examined at the bedside with Dr. Reynolds. Patient has a laceration over his left eye that was sutured in the emergency room. He is prescribed Coumadin on an outpatient basis. Patient reports he has been falling more recently at home. PAST MEDICAL HISTORY: See list. PAST SURGICAL HISTORY: See list. SOCIAL HISTORY: No illicit drug use. REVIEW OF SYSTEMS: CONSTITUTIONAL: Denies fever or chills. HEENT: Denies blurred vision, vision changes, or eye pain. Denies hemoptysis CARDIOVASCULAR: Denies chest pain or pressure. RESPIRATORY: No shortness of breath. GASTROINTESTINAL: Denies abdominal pain. HEMATOLOGIC: Denies bleeding disorders. GENITOURINARY: Denies any blood in urine. SKIN: Denies pruitis. Denies rash. PHYSICAL EXAM: VITAL SIGNS: Reviewed. GENERAL: Well-developed in no acute distress. HEENT: No sclera icterus. Extraocular movements grossly intact. Moist buccal mucosa. Head is atraumatic, normocephalic. ABDOMEN: Soft. Nondistended. Nontender. NEUROLOGIC: Alert and oriented. Cranial nerves II through XII grossly intact. SKIN: Multiple abrasions throughout. Evidence of old scabs to extremities- patient reports from previous falls. Sutures over left eye. Bruising to right eye. Multiple small abrasions on forehead. LABORATORY DATA: WBC 5.3. Hemoglobin 11.7. INR 2.5. Sodium 136. Potassium 5.6. BUN 48. Creatinine 3.84. IMAGIN. CT head: negative for acute process 2. Chest x-ray: Cardiomegaly. Loculated left-sided moderate pleural effusion. Trace right pleural effusion. Bibasilar atelectasis versus aspiration 3. CT cervical spine: No acute fracture or subluxation 4. Pelvic x-ray: Negative for acute findings ASSESSMENT: 1. S/P Fall 2. Laceration above left eyebrow, s/p suturing in ER PLAN: No surgical intervention. Continue management per medicine team. We will continue to follow and make further recommendations pending patient course. May benefit from ECF at discharge due to frequent falls at home Nurse practitioner note has been reviewed by physician. Signing provider agrees with the documented findings, assessment, and plan of care. Past Medical History Past Medical History: Atrial Fibrillation, COPD, Hyperlipidemia, Hypertension, Renal Disease Additional Past Medical History / Comment(s): HAS HEMODIALYSIS - MON,WED, FRI , GLAUCOMA,MACULAR DEGENERATION History of Any Multi-Drug Resistant Organisms: None Reported Past Surgical History: Hernia Repair Additional Past Surgical History / Comment(s): Mastoid surgery X3 Past Anesthesia/Blood Transfusion Reactions: Previous Problems w/ Anesthesia Additional Past Anesthesia/Blood Transfusion Reaction / Comm: STATES TOOK LONGER WAKING UP Past Psychological History: No Psychological Hx Reported Smoking Status: Former smoker Past Alcohol Use History: None Reported Past Drug Use History: None Reported - Past Family History Sister(s) Family Medical History: Cancer Son(s) Family Medical History: Cancer Father Family Medical History: Asthma Mother Family Medical History: Hypertension Medications and Allergies Home Medications Medication Instructions Recorded Confirmed Type Brimonidine Tartrate [Alphagan P 1 drop BOTH EYES BID 12/10/14 01/24/19 History 0.1% Ophth Soln] Timolol 0.5% Ophth Soln [Timoptic 1 drop BOTH EYES DAILY 12/11/14 01/24/19 History 0.5% Ophth Soln] Allopurinol [Zyloprim] 100 mg PO HS 12/27/17 01/24/19 History Warfarin [Coumadin] 2.5 mg PO SUTUWEFRSA 12/27/17 01/24/19 History Warfarin [Coumadin] 5 mg PO MOTH 12/27/17 01/24/19 History rOPINIRole HCL [Requip] 4 mg PO TID 12/27/17 01/24/19 History Tamsulosin HCl [Flomax] 0.4 mg PO BID 01/24/18 01/24/19 History Midodrine [ProAmatine] 10 mg PO AC-TID #180 tab 01/31/18 01/24/19 Rx Pravastatin Sodium [Pravachol] 20 mg PO HS 10/04/18 01/24/19 History Carbidopa-Levodopa 25-100 mg 1 tab PO BID 01/24/19 01/24/19 History [Sinemet 25-100] Doxepin [SINEquan] 10 mg PO HS 01/24/19 01/24/19 History Furosemide [Lasix] 60 mg PO BID 01/24/19 01/24/19 History Prorenal + D 1 tab PO DAILY 01/24/19 01/24/19 History levOCARNitine [Levocarnitine] 330 mg PO TID-W/MEALS 01/24/19 01/24/19 History Allergies Allergy/AdvReac Type Severity Reaction Status Date / Time No Known Allergies Allergy Verified 01/24/19 07:01 Surgical - Exam Vital Signs Temp Pulse Resp BP Pulse Ox 97.7 F 101 H 18 93/64 90 L 01/24/19 04:24 01/24/19 04:24 01/24/19 04:24 01/24/19 04:24 01/24/19 04:24 Results - Labs 01/24/19 05:33 01/24/19 05:33 Abnormal Lab Results - Last 24 Hours (Table) 01/24/19 01/24/19 01/24/19 Range/Units 05:33 05:33 05:33 RBC 3.50 L (4.30-5.90) m/uL Hgb 11.7 L (13.0-17.5) gm/dL Hct 36.1 L (39.0-53.0) % MCV 103.2 H (80.0-100.0) fL Plt Count 102 L (150-450) k/uL Lymphocytes # 0.6 L (1.0-4.8) k/uL PT 24.4 H (9.0-12.0) sec INR 2.5 H (<1.2) APTT 43.5 H (22.0-30.0) sec Sodium 136 L (137-145) mmol/L Potassium 5.6 H (3.5-5.1) mmol/L Chloride 93 L (98-107) mmol/L Carbon Dioxide 32 H (22-30) mmol/L BUN 45 H (9-20) mg/dL Creatinine 3.84 H (0.66-1.25) mg/dL ALT 11 L (21-72) U/L Alkaline Phosphatase 291 H (38-126) U/L Diabetes panel 01/24/19 Range/Units 05:33 Sodium 136 L (137-145) mmol/L Potassium 5.6 H (3.5-5.1) mmol/L Chloride 93 L (98-107) mmol/L Carbon Dioxide 32 H (22-30) mmol/L BUN 45 H (9-20) mg/dL Creatinine 3.84 H (0.66-1.25) mg/dL Glucose 94 (74-99) mg/dL Calcium 9.1 (8.4-10.2) mg/dL AST 37 (17-59) U/L ALT 11 L (21-72) U/L Alkaline Phosphatase 291 H (38-126) U/L Total Protein 6.6 (6.3-8.2) g/dL Albumin 3.6 (3.5-5.0) g/dL Calcium panel 01/24/19 Range/Units 05:33 Calcium 9.1 (8.4-10.2) mg/dL Albumin 3.6 (3.5-5.0) g/dL Pituitary panel 01/24/19 Range/Units 05:33 Sodium 136 L (137-145) mmol/L Potassium 5.6 H (3.5-5.1) mmol/L Chloride 93 L (98-107) mmol/L Carbon Dioxide 32 H (22-30) mmol/L BUN 45 H (9-20) mg/dL Creatinine 3.84 H (0.66-1.25) mg/dL Glucose 94 (74-99) mg/dL Calcium 9.1 (8.4-10.2) mg/dL Adrenal panel 01/24/19 Range/Units 05:33 Sodium 136 L (137-145) mmol/L Potassium 5.6 H (3.5-5.1) mmol/L Chloride 93 L (98-107) mmol/L Carbon Dioxide 32 H (22-30) mmol/L BUN 45 H (9-20) mg/dL Creatinine 3.84 H (0.66-1.25) mg/dL Glucose 94 (74-99) mg/dL Calcium 9.1 (8.4-10.2) mg/dL Total Bilirubin 1.3 (0.2-1.3) mg/dL AST 37 (17-59) U/L ALT 11 L (21-72) U/L Alkaline Phosphatase 291 H (38-126) U/L Total Protein 6.6 (6.3-8.2) g/dL Albumin 3.6 (3.5-5.0) g/dL
[2019-01-24 15:33] LABS: Cocaine Screen,Urine Not Detected (NotDetected); Opiate Screen,Urine Not Detected (NotDetected); Phencyclidine Screen,Urine Not Detected (NotDetected); Urn Cannabinoid Scrn Not Detected (NotDetected)
[2019-01-24 15:34] LABS: Amphetamine Screen,Urine Not Detected (NotDetected); Barbiturate Screen,Urine Not Detected (NotDetected); Benzodiazepines Screen,Urine Not Detected (NotDetected); Methadone Screen, Urine Not Detected (NotDetected); Oxycodone Screen, Urine Not Detected (NotDetected); Tricyclic Antidepressant,Urine Not Detected (NotDetected)
[2019-01-24] MEDS: FAMOTIDINE 20 MG/2 ML VIAL IV SCH ×2 (15:37→21:23)
[2019-01-24] MEDS: ACETAMINOPHEN TAB 325 MG TAB PO PRN (17:52)
[2019-01-24 18:22] LABS: Glucose,Whole Blood 105 mg/dL (75-99)
--- NOTE | 2019-01-24 20:03 | CONS ---
CONSULTATION PULMONARY/CRITICAL CARE CONSULTATION: DATE OF SERVICE: 01/24/2019 This is a very pleasant 83-year-old gentleman admitted through the emergency room on January 24. He apparently presented because of a fall. The patient does suffer from end-stage renal disease. For that he sees Dr. Thompson for hemodialysis on Wednesday, Wednesday, Wednesday. He also has a history of chronic hypotension, for which he takes midodrine. The patient presented to the emergency room with an apparent fall at home. The patient suffers from restless legs syndrome; he may have gotten out of bed in the middle of the night and fallen. Anyway, he sustained significant injuries to his facial area, including multiple lacerations, contusions, abrasions, etc. We were consulted primarily because on chest x-ray he was found to have a small to moderate left pleural effusion. Ultrasound showed an effusion that was only about 4 to 4.2 cm in size, and hence the consultation was initiated. The patient denies any breathing issues. He is not wearing any supplemental oxygen. He denies any cough, wheezing, shortness of breath, phlegm production, hemoptysis, etc. No fever, chills, nausea, vomiting, diarrhea or genitourinary complaints for that matter. He did have a CT scan of the brain that was negative for any acute injury. The patient was on a vitamin K antagonist. HOME MEDICATIONS: His home medications include: 1. Eye drops. 2. Allopurinol. 3. Vitamin D3. 4. Coumadin. 5. Requip. 6. Melatonin. 7. Flomax. 8. B complex vitamins. 9. Lasix. 10.Pravastatin. 11.Midodrine. ALLERGIES: DENIED. MEDICAL HISTORY: His medical history includes: 1. Chronic atrial fibrillation. 2. COPD. 3. Hyperlipidemia. 4. Hypertension. 5. Chronic renal failure/chronic kidney disease requiring hemodialysis Wednesday, Wednesday, Wednesday. 6. Macular degeneration. 7. Glaucoma. SURGICAL HISTORY: Surgical history includes: 1. Mastoid surgery x3. 2. Hernia repair. SOCIAL HISTORY: Positive for previous tobacco use. Denies any alcohol use or illicit drug use. FAMILY HISTORY: Significant for mother with hypertension, father with asthma, son with cancer and a sister with cancer. REVIEW OF SYSTEMS: CONSTITUTIONAL: Negative. NEUROLOGIC: Negative. HEENT: Facial and head pain from recent trauma. CARDIOVASCULAR: Negative. PULMONARY: Negative. GI: Negative. : Negative. RHEUMATOLOGIC: Negative. IMMUNOLOGIC: Negative. ENDOCRINOLOGIC: Negative. DERMATOLOGIC: Negative. PHYSICAL EXAMINATION: VITAL SIGNS: Current vital signs include temperature 97.7, heart rate 84, respiratory rate 16, blood pressure 108/68, mean 81, room-air saturation 94%. GENERAL APPEARANCE: Appears in no acute distress. HEENT: HEENT examination is grossly unremarkable. Mucous membranes are moist. No oral lesions. He has multiple facial abrasions, lacerations and contusions. NECK: Supple. Full range of motion. No adenopathy, thyromegaly or neck vein distention. CARDIOVASCULAR: Cardiovascular examination reveals regular rhythm and rate. Heart rate in the mid 80s. S1, S2 normal. LUNGS: Lungs reveal a few scattered rhonchi and crackles. No wheezes. Breath sounds equal bilaterally. Air exchange is excellent. ABDOMEN: Soft. Bowel sounds are heard. EXTREMITIES: Extremities are intact. No cyanosis, clubbing or edema. SKIN: Without rash. NEUROLOGIC: Neurologic examination is brief but nonfocal. LABS: Labs are reviewed. White count 5.3, hemoglobin 11.7, hematocrit 36.1, platelet count 102,000. PT 24.4, INR 2.5. PTT is 43.5. Sodium 136, potassium 5.6, chloride 93, CO2 32. Anion gap is 11. BUN and creatinine were 45 and 3.84. The rest of the labs look okay. Troponin was 0.013. Alcohol level less than 10. IMAGING: A facial CT was negative for acute fracture. A chest x-ray showed evidence of of cardiomegaly, trace right-sided pleural effusion and a possible loculated left-sided effusion. Both effusions are relatively small, the right smaller than the left. Head and cervical spine x-rays show no acute fracture or subluxation. Chest ultrasound reveals a small left pleural effusion of about 4.3 cm in size. ASSESSMENT: 1. Small to moderate left-sided pleural effusion, not worth a thoracentesis effort, as the patient is completely asymptomatic from a pulmonary standpoint, not requiring any oxygen therapy. 2. History of atrial fibrillation, for which the patient is on a vitamin K antagonist. 3. Vague history of chronic obstructive pulmonary disease. 4. Hyperlipidemia. 5. Hypertension. 6. Chronic kidney disease requiring 6-negz-m-week hemodialysis. 7. History of glaucoma. 8. History of macular degeneration. 9. Recent fall with multiple facial abrasions, contusions and lacerations, of unclear etiology. PLAN: No value for thoracentesis at this time. We will continue to follow. No additional recommendations are made. Hopefully discharge soon. He did have dialysis on Wednesday. Again, no respiratory issues at this time. MMODL / IJN: [id number] /
[2019-01-24] MEDS ORDERED: WARFARIN 2 MG TAB PO ONE (20:45)
[2019-01-24 20:55] LABS: Glucose,Whole Blood 111 mg/dL (75-99)
[2019-01-24] MEDS ORDERED: ALLOPURINOL 100 MG TAB PO SCH (21:00)
[2019-01-24] MEDS ORDERED: PRAVASTATIN SODIUM 20 MG TAB PO SCH (21:00)
[2019-01-24] MEDS ORDERED: DOXEPIN 10 MG CAP PO SCH (21:00)
[2019-01-24] MEDS: IPRATROPIUM-ALBUTEROL 3 ML NEB INHALATION SCH (22:03)
[2019-01-25 07:16] LABS: Glucose,Whole Blood 87 mg/dL (75-99)
[2019-01-25] MEDS: IPRATROPIUM-ALBUTEROL 3 ML NEB INHALATION SCH ×2 (07:22→15:27)
[2019-01-25 08:22] LABS: INR 2.1 (<1.2); Prothrombin Time 20.5 sec (9.0-12.0)
[2019-01-25 08:30] LABS: Calcium 9.1 mg/dL (8.4-10.2); Potassium 5.1 mmol/L (3.5-5.1)
[2019-01-25] MEDS: ACETAMINOPHEN TAB 325 MG TAB PO PRN (08:33)
[2019-01-25] MEDS: FAMOTIDINE 20 MG/2 ML VIAL IV SCH (08:33)
[2019-01-25] MEDS: TAMSULOSIN 0.4 MG CAP.ER.24H PO SCH (08:33)
[2019-01-25] MEDS: CARBIDOPA-LEVODOPA 25-100 MG 1 EACH TAB PO SCH (08:35)
[2019-01-25] MEDS: BRIMONIDINE TARTRATE 0.2% DROPS 5 ML BTL BOTH EYES SCH (08:35)
[2019-01-25] MEDS: MIDODRINE 5 MG TAB PO SCH ×2 (08:36→13:39)
[2019-01-25] MEDS: FOLIC ACID-VIT B COMPLEX-VIT C 1 CAP PO SCH (08:36)
[2019-01-25] MEDS: levOCARNitine (WITH SUGAR) 100 MG/ML BOTTLE PO SCH ×2 (08:36→13:39)
[2019-01-25] MEDS: rOPINIRole HCL 4 MG TABLET PO SCH (08:40)
[2019-01-25] MEDS: TIMOLOL 0.5% OPHTH DROPS 5 ML BTL BOTH EYES SCH (08:40)
[2019-01-25 08:41] LABS: Anisocytosis Slight; Basophils # (A) 0.1 k/uL (0-0.2); Basophils % (A) 2 %; Eosinophils # (A) 0.3 k/uL (0-0.7); Eosinophils % (A) 5 %; HCT 36.9 % (39.0-53.0); Lymphocytes # (A) 0.7 k/uL (1.0-4.8); Lymphocytes % (A) 13 %; MCH 34.5 pg (25.0-35.0); MCHC 32.4 g/dL (31.0-37.0); MCV 106.4 fL (80.0-100.0); Macrocytosis Moderate; Mean Platelet Volume 9.2; Monocytes # (A) 0.6 k/uL (0-1.0); Monocytes % (A) 11 %; Neutrophils # (A) 3.6 k/uL (1.3-7.7); Neutrophils % (A) 66 %; RBC 3.47 m/uL (4.30-5.90); RDW 16.2 % (11.5-15.5); WBC 5.4 k/uL (3.8-10.6)
[2019-01-25] MEDS ORDERED: HEPARIN SODIUM,PORCINE 5,000 UNIT/ML 1 ML VIAL SQ SCH (09:00)
[2019-01-25 09:18] VITALS: RESP 16
[2019-01-25 10:19] LABS: Platelet Count 90 k/uL (150-450)
[2019-01-25 11:49] LABS: Glucose,Whole Blood 99 mg/dL (75-99)
--- NOTE | 2019-01-25 11:57 | P.PN ---
Subjective Progress Note Date: 01/25/19 CHIEF COMPLAINT: fall HISTORY OF PRESENT ILLNESS: Patient examined at the bedside. Patient denies pain. Denies nausea or vomiting. Laceration with sutures to eyebrow noted with any acute bleeding. Currently getting hemodialysis during examination. PHYSICAL EXAM: VITAL SIGNS: Reviewed. GENERAL: Well-developed in no acute distress. HEENT: No sclera icterus. Extraocular movements grossly intact. Moist buccal mucosa. Head is atraumatic, normocephalic. ABDOMEN: Soft. Nondistended. Nontender. NEUROLOGIC: Alert and oriented. Cranial nerves II through XII grossly intact. SKIN: Multiple abrasions throughout. Evidence of old scabs to extremities- patient reports from previous falls. Sutures over left eye. Bruising to bilateral eyes. Multiple small abrasions on forehead. ASSESSMENT: 1. S/P Fall 2. Laceration above left eyebrow, s/p suturing in ER PLAN: No surgical intervention May benefit from ECF at discharge due to frequent falls at home Discharge per medicine Nurse practitioner note has been reviewed by physician. Signing provider agrees with the documented findings, assessment, and plan of care. Objective - Vital Signs Vital signs: Vital Signs Temp 97.8 F 01/25/19 04:00 Pulse 80 01/25/19 09:16 Resp 16 01/25/19 09:16 BP 109/66 01/25/19 09:16 Pulse Ox 98 01/25/19 09:16 Intake & Output 01/24/19 01/25/19 01/25/19 18:59 06:59 18:59 Intake Total 200 Output Total 2700 Balance -2700 200 Weight 76 kg Intake: Oral 200 Output: Urine 200 Hemodialysis 2500 Other: Voiding Method Toilet Toilet Toilet Urinal Urinal Urinal # Voids 1 # Bowel Movements 1 1 1 - Labs CBC & Chem 7: 01/25/19 07:24 01/25/19 07:24 Labs: Abnormal Lab Results - Last 24 Hours (Table) 01/24/19 01/24/19 01/24/19 Range/Units 14:50 18:21 20:54 RBC (4.30-5.90) m/uL Hgb (13.0-17.5) gm/dL Hct (39.0-53.0) % MCV (80.0-100.0) fL RDW (11.5-15.5) % Plt Count (150-450) k/uL Lymphocytes # (1.0-4.8) k/uL PT (9.0-12.0) sec INR (<1.2) Chloride (98-107) mmol/L Carbon Dioxide (22-30) mmol/L BUN (9-20) mg/dL Creatinine (0.66-1.25) mg/dL POC Glucose (mg/dL) 105 H 111 H (75-99) mg/dL Urine Protein 1+ H (Negative) Urine Mucus Rare H (None) /hpf 01/25/19 01/25/19 01/25/19 Range/Units 07:24 07:24 07:24 RBC 3.47 L (4.30-5.90) m/uL Hgb 12.0 L (13.0-17.5) gm/dL Hct 36.9 L (39.0-53.0) % MCV 106.4 H (80.0-100.0) fL RDW 16.2 H (11.5-15.5) % Plt Count 90 L (150-450) k/uL Lymphocytes # 0.7 L (1.0-4.8) k/uL PT 20.5 H (9.0-12.0) sec INR 2.1 H (<1.2) Chloride 95 L (98-107) mmol/L Carbon Dioxide 33 H (22-30) mmol/L BUN 41 H (9-20) mg/dL Creatinine 3.92 H (0.66-1.25) mg/dL POC Glucose (mg/dL) (75-99) mg/dL Urine Protein (Negative) Urine Mucus (None) /hpf
[2019-01-25 12:40] VITALS: BP 96/52; TEMP 97.6
--- NOTE | 2019-01-25 13:43 | P.PN ---
Subjective Patient is seen in follow-up for end-stage renal disease. He is maintained on hemodialysis on Wednesday schedule. Patient presented after sustaining a fall. Feels well today. Oral intake is good. Hemodynamically stable. Vital signs are stable. General: The patient appeared well nourished and normally developed. HEENT: Head exam is unremarkable. Neck is without jugular venous distension. Bruising noted. No active bleeding. LUNGS: Lungs are clear to auscultation and percussion. Breath sounds decreased. HEART: Rate and Rhythm are regular. First and second heart sounds normal. No murmurs, rubs or gallops. ABDOMEN: Abdominal exam reveals normal bowel sounds. Non-tender and non- distended. No evidence of peritonitis. EXTREMITITES: 1+ edema. Objective - Vital Signs Vital signs: Vital Signs Temp 97.6 F 01/25/19 12:01 Pulse 62 01/25/19 12:01 Resp 16 01/25/19 12:01 BP 96/52 01/25/19 12:01 Pulse Ox 100 01/25/19 12:01 Intake & Output 01/24/19 01/25/19 01/25/19 18:59 06:59 18:59 Intake Total 200 Output Total 2700 Balance -2700 200 Weight 76 kg Intake: Oral 200 Output: Urine 200 Hemodialysis 2500 Other: Voiding Method Toilet Toilet Toilet Urinal Urinal Urinal # Voids 1 # Bowel Movements 1 1 1 - Labs CBC & Chem 7: 01/25/19 07:24 01/25/19 07:24 Labs: Abnormal Lab Results - Last 24 Hours (Table) 01/24/19 01/24/19 01/24/19 Range/Units 14:50 18:21 20:54 RBC (4.30-5.90) m/uL Hgb (13.0-17.5) gm/dL Hct (39.0-53.0) % MCV (80.0-100.0) fL RDW (11.5-15.5) % Plt Count (150-450) k/uL Lymphocytes # (1.0-4.8) k/uL PT (9.0-12.0) sec INR (<1.2) Chloride (98-107) mmol/L Carbon Dioxide (22-30) mmol/L BUN (9-20) mg/dL Creatinine (0.66-1.25) mg/dL POC Glucose (mg/dL) 105 H 111 H (75-99) mg/dL Urine Protein 1+ H (Negative) Urine Mucus Rare H (None) /hpf 01/25/19 01/25/19 01/25/19 Range/Units 07:24 07:24 07:24 RBC 3.47 L (4.30-5.90) m/uL Hgb 12.0 L (13.0-17.5) gm/dL Hct 36.9 L (39.0-53.0) % MCV 106.4 H (80.0-100.0) fL RDW 16.2 H (11.5-15.5) % Plt Count 90 L (150-450) k/uL Lymphocytes # 0.7 L (1.0-4.8) k/uL PT 20.5 H (9.0-12.0) sec INR 2.1 H (<1.2) Chloride 95 L (98-107) mmol/L Carbon Dioxide 33 H (22-30) mmol/L BUN 41 H (9-20) mg/dL Creatinine 3.92 H (0.66-1.25) mg/dL POC Glucose (mg/dL) (75-99) mg/dL Urine Protein (Negative) Urine Mucus (None) /hpf Assessment and Plan Plan: Assessment: 1. End-stage renal disease maintained on hemodialysis on Wednesday schedule via AV fistula. 2. Status post fall. 3. Systolic CHF with ejection fraction of 40-45%. 4. Volume overload. Better with ultrafiltration. 5. Left-sided pleural effusion. Thoracentesis is not planned at this time. 6. Chronic hypotension maintained on midodrine. 7. Hyperkalemia secondary to chronic kidney disease. Better postdialysis. Plan: Currently seen while undergoing hemodialysis. Next hemodialysis on Wednesday. Stable to be discharged home from nephrology standpoint.
--- NOTE | 2019-01-25 13:49 | P.PN ---
Subjective Progress Note Date: 01/25/19 Principal diagnosis: Small moderate left-sided pleural effusion. The patient is seen today 01/25/2019 in follow-up on the regular medical floor. He does have a left-sided pleural effusion which was not significant enough for thoracentesis. He is currently receiving hemodialysis. 2.5 L removed yesterday. He is awake and alert in no acute distress. On 3 L/m per nasal cannula. White count 5.4. Hemoglobin 12.0. Creatinine 3.92. BUN 41. INR 2.1. Objective - Vital Signs Vital signs: Vital Signs Temp 97.6 F 01/25/19 12:01 Pulse 62 01/25/19 12:01 Resp 16 01/25/19 12:01 BP 96/52 01/25/19 12:01 Pulse Ox 100 01/25/19 12:01 Intake & Output 01/24/19 01/25/19 01/25/19 18:59 06:59 18:59 Intake Total 200 Output Total 2700 Balance -2700 200 Weight 76 kg Intake: Oral 200 Output: Urine 200 Hemodialysis 2500 Other: Voiding Method Toilet Toilet Toilet Urinal Urinal Urinal # Voids 1 # Bowel Movements 1 1 1 - Exam GENERAL EXAM: Alert, pleasant 83-year-old gentleman, fairly comfortable in no apparent distress. On 3 L/m per nasal cannula HEAD: Normocephalic. Ecchymosis and bruising of the face, sutures to the forehead. EYES: Normal reaction of pupils, equal size. NOSE: Clear with pink turbinates. THROAT: No erythema or exudates. NECK: No masses, no JVD. CHEST: No chest wall deformity. LUNGS: Equal air entry with crackles in left posterior base CVS: S1 and S2 normal with no audible murmur, regular rhythm. ABDOMEN: No hepatosplenomegaly, normal bowel sounds, no guarding or rigidity. SPINE: No scoliosis or deformity SKIN: No rashes CENTRAL NERVOUS SYSTEM: No focal deficits, tone is normal in all 4 extremities. EXTREMITIES: AV fistula to the upper extremity There is no peripheral edema. No clubbing, no cyanosis. Peripheral pulses are intact. - Labs CBC & Chem 7: 01/25/19 07:24 01/25/19 07:24 Labs: Abnormal Lab Results - Last 24 Hours (Table) 0901/24/19 01/24/19 Range/Units 14:50 18:21 20:54 RBC (4.30-5.90) m/uL Hgb (13.0-17.5) gm/dL Hct (39.0-53.0) % MCV (80.0-100.0) fL RDW (11.5-15.5) % Plt Count (150-450) k/uL Lymphocytes # (1.0-4.8) k/uL PT (9.0-12.0) sec INR (<1.2) Chloride (98-107) mmol/L Carbon Dioxide (22-30) mmol/L BUN (9-20) mg/dL Creatinine (0.66-1.25) mg/dL POC Glucose (mg/dL) 105 H 111 H (75-99) mg/dL Urine Protein 1+ H (Negative) Urine Mucus Rare H (None) /hpf 01/25/19 01/25/19 01/25/19 Range/Units 07:24 07:24 07:24 RBC 3.47 L (4.30-5.90) m/uL Hgb 12.0 L (13.0-17.5) gm/dL Hct 36.9 L (39.0-53.0) % MCV 106.4 H (80.0-100.0) fL RDW 16.2 H (11.5-15.5) % Plt Count 90 L (150-450) k/uL Lymphocytes # 0.7 L (1.0-4.8) k/uL PT 20.5 H (9.0-12.0) sec INR 2.1 H (<1.2) Chloride 95 L (98-107) mmol/L Carbon Dioxide 33 H (22-30) mmol/L BUN 41 H (9-20) mg/dL Creatinine 3.92 H (0.66-1.25) mg/dL POC Glucose (mg/dL) (75-99) mg/dL Urine Protein (Negative) Urine Mucus (None) /hpf Assessment and Plan Assessment: Impression: #1 Status post fall with laceration to the forehead, ecchymosis and bruising of the face. The patient had taking sleeping medications along with an extra dose of his Requip. #2 Left pleural effusion measuring 4.3 cm, no plans for thoracentesis. #3 End stage renal disease on hemodialysis Wednesday with extra treatment yesterday with 2.5 L removed. Receiving it today as well. #4 Atrial fibrillation, anticoagulated with warfarin, INR 2.1. #5 Chronic obstructive pulmonary disease, currently inactive and stable. #6 Hyperlipidemia. #7 Hypertension, history of. #8 Macular degeneration. Plan: The patient was seen and evaluated by Dr. Horton. He is cleared for discharge from the pulmonary standpoint. He'll follow-up in our office as scheduled. He and his are encouraged to call sooner with any pulmonary questions or concerns. I, the cosigning physician, performed a history & physical examination of the patient. Lungs sounds with crackles in left base. Maintaining good O2 saturations in the 90s on 3 L/m per nasal cannula. I discussed the assessment and plan of care with my nurse practitioner, Charity Diallo. I attest to the above note as dictated by her.
--- NOTE | 2019-01-25 14:41 | P.DS ---
Providers Date of admission: 01/24/19 06:12 Attending physician: Aura More Consults: 01/24/19 06:21 Consult Physician Routine Consulting Provider: Parish Reynolds Consult Reason/Comments: fall, facial lac, on coumadin Do you want consulting provider notified?: Already Contacted 01/24/19 07:10 Consult Physician Urgent Consulting Provider: Jakub Thompson Consult Reason/Comments: established pt, ESRD Do you want consulting provider notified?: Yes 01/24/19 10:34 Consult Physician Urgent Consulting Provider: Eduardo Horton Consult Reason/Comments: Left pleural effusion and atelectasis versus aspiration Do you want consulting provider notified?: Yes Primary care physician: [facility] Hospital Course: Diagnoses: Fall Left pleural effusion with atelectasis. Patient is asymptomatic and no need for thoracocentesis. Cleared by Pulmonary team. Patient status cough whenever he eats. Patient passed swallow evaluation. Restless leg syndrome History of Parkinson disease End-stage kidney disease on hemodialysis small dry ulcer on the tip of his left toe COPD, not in acute exacerbation Chronic atrial fibrillation Hypertension History of glaucoma and macular degeneration of the eye Chronic thrombocytopenia Hospital course: This is a pleasant 83 years old male with past medical history of atrial fibrillation, COPD, hypertension, hyperlipidemia, chronic kidney end-stage kidney disease on hemodialysis, restless leg syndrome, glaucoma and macular degeneration of the eye, he presents because of fall. Patient was found by sitting in the floor of the kitchen and there were blood covering him due to facial trauma. Patient was awake. He stated that he started doxazosin the night before and new sleeping pill. Also patient was feeling lightheadedness after hemodialysis yesterday but not anymore or when he fell down. He denies syncope. He had multiple bruises and injury on his face, CAT scan of the brain was negative for acute hemorrhage and of the cervical spine was negative for acute fracture. Surgical team recommended to continue with conservative therapy. Radioactivity Technician evaluated the patient for his on hemodialysis. Chest x- ray: Left loculated left-sided moderate pleural effusion and trace right pleural effusion and bibasilar atelectasis versus aspiration. Pulmonary team saw the patient, and accordingly since the patient has no symptoms and he is saturating in 90s on room air they recommended no need for thoracocentesis. Swallow evaluation also evaluated the patient's with no need for any modification currently. Patient develops transient hypotension after each hemodialysis as per patient that spontaneously mostly corrects gradually and currently blood pressure is stable prior to discharge. Also patient has small dry ulcer on the tip of his left toe which we recommend that he follow-up with tablet making machine operator/surgical team as an outpatient and he agrees On the day of discharge patient denies headache, no weakness, no abnormal sensation, no chest pain or dyspnea. No abdominal pain. No nausea vomiting, patient tolerates diet well. No change in urine or bowel habits. No fever. Patient states he can go home. Patient was counseled to avoid sleeping pills Patient was cleared for discharge by all consultants including nephrology, surgical team and pulmonary team Problems and management plan were discussed with the patient and he verbalized understanding and acceptance Patient was found stable and can be discharged home however he needs follow-up as an outpatient. Patient and at bedside and agree with the appointments made for them with Dr. Peoples presents in follow-up. Patient and were encouraged to call PCP office if develops any symptoms or call 911 on come to emergency room and they agree. Patient instructed to follow up with old testament professor, surgeon and tablet making machine operator for suture removal Gen: patient is a AAOx3, no distress Head and neck:Multiple abrasions on the cheek on 400, bruises around both eyes, more on the right side,Sutures over left eye, Multiple small abrasions on forehead. . CVS: S1-S2, RRR, no murmur Lungs: B/L CTA, no wheezing Abdomen: soft, no distention, no tenderness, positive bowel sounds Extremity: no leg edema or induration. Slightly tender Dry ulcer at the tip of left toe, no surrounding cellulitis or purulent discharge. Time spent more than 35 minutes Patient Condition at Discharge: Serious Plan - Discharge Summary Discharge Rx Participant: No New Discharge Prescriptions: Continue Brimonidine Tartrate [Alphagan P 0.1% Ophth Soln] 1 drop BOTH EYES BID Timolol 0.5% Ophth Soln [Timoptic 0.5% Ophth Soln] 1 drop BOTH EYES DAILY rOPINIRole HCL [Requip] 4 mg PO TID Allopurinol [Zyloprim] 100 mg PO HS Warfarin [Coumadin] 2.5 mg PO SUTUWEFRSA Warfarin [Coumadin] 5 mg PO MOTH Tamsulosin HCl [Flomax] 0.4 mg PO BID Midodrine [ProAmatine] 10 mg PO AC-TID #180 tab Pravastatin Sodium [Pravachol] 20 mg PO HS Furosemide [Lasix] 60 mg PO BID Carbidopa-Levodopa 25-100 mg [Sinemet 25-100 mg] 1 tab PO BID Prorenal + D 1 tab PO DAILY Doxepin [SINEquan] 10 mg PO HS levOCARNitine [Levocarnitine] 330 mg PO TID-W/MEALS Discharge Medication List Brimonidine Tartrate [Alphagan P 0.1% Ophth Soln] 1 drop BOTH EYES BID 12/10/14 [History] Timolol 0.5% Ophth Soln [Timoptic 0.5% Ophth Soln] 1 drop BOTH EYES DAILY 12/11/14 [History] Allopurinol [Zyloprim] 100 mg PO HS 12/27/17 [History] Warfarin [Coumadin] 2.5 mg PO SUTUWEFRSA 12/27/17 [History] Warfarin [Coumadin] 5 mg PO MOTH 12/27/17 [History] rOPINIRole HCL [Requip] 4 mg PO TID 12/27/17 [History] Tamsulosin HCl [Flomax] 0.4 mg PO BID 01/24/18 [History] Midodrine [ProAmatine] 10 mg PO AC-TID #180 tab 01/31/18 [Rx] Pravastatin Sodium [Pravachol] 20 mg PO HS 10/04/18 [History] Carbidopa-Levodopa 25-100 mg [Sinemet 25-100 mg] 1 tab PO BID 01/24/19 [History] Doxepin [SINEquan] 10 mg PO HS 01/24/19 [History] Furosemide [Lasix] 60 mg PO BID 01/24/19 [History] Prorenal + D 1 tab PO DAILY 01/24/19 [History] levOCARNitine [Levocarnitine] 330 mg PO TID-W/MEALS 01/24/19 [History] Follow up Appointment(s)/Referral(s): Vaibhav Ortiz MD [Primary Care Provider] - 02/21/19 1:15 pm Jakub Thompson DO [STAFF PHYSICIAN] - 1-2 Days (Dr. Thompson's office will call patient with an appointment date and time ) Kee Carr MD [STAFF PHYSICIAN] - 1 Week (Vascular surgeon, for your left toe ulcer) Parish Reynolds MD [STAFF PHYSICIAN] - 1 Week Patient Instructions/Handouts: Laceration (DC), Fall Prevention for Older Adults (DC), Hypotension (DC), Fall Prevention (DC) Activity/Diet/Wound Care/Special Instructions: Renal diet Activity is limited till you see your doctor We recommend to avoid sleeping pills, induced sleep. Riley instead (avoids coffee and they since afternoon, use bed only for sleeping and no other activities, Gentle exercises during the day) Discharge Disposition: HOME WITH HOME HEALTH SERVICES
[2019-01-25 15:37] VITALS: PULSE 80
[2019-01-25] MEDS ORDERED: WARFARIN 2.5 MG TAB PO ONE (18:00)
[2019-01-25] MEDS ORDERED: FAMOTIDINE 20 MG TAB PO SCH (21:00)
[2019-01-26] MEDS ORDERED: WARFARIN 5 MG TAB PO SCH (08:46)
== END 2019-01-25 16:05 | disposition home health service (06) ==
LOC: EC 04:22 → 3NMEDONC 06:12
PROVIDERS: ADMIT Hospitalist; ATTEND Hospitalist
DX: S01.81XA Laceration without foreign body of other part of head, initial encounter (principal); I95.89 Other hypotension; J90 Pleural effusion, not elsewhere classified; J98.11 Atelectasis; I13.2 Hypertensive heart and chronic kidney disease with heart failure and with stage 5 chronic kidney disease, or end stage renal disease; I50.20 Unspecified systolic (congestive) heart failure; N18.6 End stage renal disease; E87.70 Fluid overload, unspecified; G25.81 Restless legs syndrome; Z99.2 Dependence on renal dialysis; J44.9 Chronic obstructive pulmonary disease, unspecified; I48.2 Chronic atrial fibrillation; E78.5 Hyperlipidemia, unspecified; H40.9 Unspecified glaucoma; H35.30 Unspecified macular degeneration; R79.1 Abnormal coagulation profile; G20 Parkinson's disease; D69.6 Thrombocytopenia, unspecified; E87.5 Hyperkalemia; M48.02 Spinal stenosis, cervical region; L97.529 Non-pressure chronic ulcer of other part of left foot with unspecified severity; W07.XXXA Fall from chair, initial encounter; Y92.000 Kitchen of unspecified non-institutional (private) residence as the place of occurrence of the external cause; Z79.01 Long term (current) use of anticoagulants; Z79.899 Other long term (current) drug therapy; Z87.891 Personal history of nicotine dependence; Z82.49 Family history of ischemic heart disease and other diseases of the circulatory system; Z80.9 Family history of malignant neoplasm, unspecified; Z82.5 Family history of asthma and other chronic lower respiratory diseases
CPT/HCPCS: 12013; 96376 ×2; 96374; 99285; 36415; 94640 ×2; 93005; 97116; 97162; 92610; 92611; 86900; 86901; 80053; 80048; 84484; 85025 ×2; 85610 ×2; 85730; 86850; 81001; 80306; 74230; 72170; 71045; 76604; 72125; 70486; 70450; G0378 ×2; G0480; 80320; 90935

== ENCOUNTER 2019-02-01 19:25 | Emergency (ER) | payer MEDICARE ==
[2019-02-01 19:51] VITALS: BP 114/71; PULSE 100; RESP 18; TEMP 97.5
--- NOTE | 2019-02-01 20:29 | ED ---
General Adult HPI - General Chief complaint: Skin/Abscess/Foreign Body Stated complaint: Head Pain after stitches Time Seen by Provider: 02/01/19 20:06 Source: patient Mode of arrival: wheelchair Limitations: no limitations - History of Present Illness Initial comments: Patient is an 83-year-old male presenting to the emergency department with a chief complaint of a suture removal. Sutures were placed over 5 days ago and they have a scheduled removal for tomorrow. Patient is on blood thinners and lacerated his left eyebrow. Patient reports pain at the laceration site. Patient reports "the stitches bother" him. Patient does report tenderness over the laceration site. There is still a mild hematoma which has improved since the incident occurred according to his . No signs of cellulitis or infection. Patient reports that pain is a 5 and throbbing. Patient denies any headaches - Related Data Home Medications Medication Instructions Recorded Confirmed Brimonidine Tartrate [Alphagan P 1 drop BOTH EYES BID 12/10/14 01/24/19 0.1% Ophth Soln] Timolol 0.5% Ophth Soln [Timoptic 1 drop BOTH EYES DAILY 12/11/14 01/24/19 0.5% Ophth Soln] Allopurinol [Zyloprim] 100 mg PO HS 12/27/17 01/24/19 Warfarin [Coumadin] 2.5 mg PO SUTUWEFRSA 12/27/17 01/24/19 Warfarin [Coumadin] 5 mg PO MOTH 12/27/17 01/24/19 rOPINIRole HCL [Requip] 4 mg PO TID 12/27/17 01/24/19 Tamsulosin HCl [Flomax] 0.4 mg PO BID 01/24/18 01/24/19 Pravastatin Sodium [Pravachol] 20 mg PO HS 10/04/18 01/24/19 Carbidopa-Levodopa 25-100 mg 1 tab PO BID 01/24/19 01/24/19 [Sinemet 25-100 mg] Doxepin [SINEquan] 10 mg PO HS 01/24/19 01/24/19 Furosemide [Lasix] 60 mg PO BID 01/24/19 01/24/19 Prorenal + D 1 tab PO DAILY 01/24/19 01/24/19 levOCARNitine [Levocarnitine] 330 mg PO TID-W/MEALS 01/24/19 01/24/19 Previous Rx's Medication Instructions Recorded Midodrine [ProAmatine] 10 mg PO AC-TID #180 tab 01/31/18 Allergies Allergy/AdvReac Type Severity Reaction Status Date / Time No Known Allergies Allergy Verified 01/24/19 07:01 Review of Systems ROS Statement: Those systems with pertinent positive or pertinent negative responses have been documented in the HPI. ROS Other: All systems not noted in ROS Statement are negative. Past Medical History Past Medical History: Atrial Fibrillation, COPD, Hyperlipidemia, Hypertension, Renal Disease Additional Past Medical History / Comment(s): HAS HEMODIALYSIS - MON,WED, FRI , GLAUCOMA,MACULAR DEGENERATION History of Any Multi-Drug Resistant Organisms: None Reported Past Surgical History: Hernia Repair Additional Past Surgical History / Comment(s): Mastoid surgery X3 Past Anesthesia/Blood Transfusion Reactions: Previous Problems w/ Anesthesia Additional Past Anesthesia/Blood Transfusion Reaction / Comment(s): STATES TOOK LONGER WAKING UP Past Psychological History: No Psychological Hx Reported Smoking Status: Former smoker Past Alcohol Use History: None Reported Past Drug Use History: None Reported - Past Family History Sister(s) Family Medical History: Cancer Son(s) Family Medical History: Cancer Father Family Medical History: Asthma Mother Family Medical History: Hypertension General Exam Limitations: no limitations General appearance: alert, in no apparent distress Head exam: Present: atraumatic, normocephalic. Absent: normal inspection (Laceration on the left eyebrow. No signs of cellulitis or other infection. No discharge. 4 sutures.) Eye exam: Present: normal appearance. Absent: periorbital tenderness ENT exam: Present: normal exam, mucous membranes moist, normal external ear exam Neck exam: Present: normal inspection, full ROM Respiratory exam: Present: normal lung sounds bilaterally Cardiovascular Exam: Present: regular rate, normal rhythm, normal heart sounds Extremities exam: Present: normal inspection, full ROM Back exam: Present: normal inspection, full ROM Neurological exam: Present: alert, oriented X3 Psychiatric exam: Present: normal affect, normal mood Skin exam: Present: warm, intact, normal color Course Vital Signs 02/01/19 19:43 Temperature 97.5 F L Pulse Rate 100 Respiratory 18 Rate Blood Pressure 114/71 O2 Sat by Pulse 92 L Oximetry Medical Decision Making - Medical Decision Making Patient is an 83-year-old male presenting to emergency Department with a chief complaint for suture removal. Patient had a laceration over 5 days ago that was repaired. Patient has an appointment for suture removal tomorrow but he states the pain is causing him too much discomfort. Patient denies any bleeding. Patient is on blood thinners. She does not have any other complaints. Physical examination patient does have a mild hematoma in the region still but it is he aling according to his . The sutures were removed the patient did begin to have a bleed. The laceration site is still holding together well. Steri-Strips were placed to hold the laceration together. Patient still advised to follow-up for tomorrow's appointment. Strict return parameters were thoroughly discussed with patient was understanding and agreeable. Case discussed with physician. Disposition Clinical Impression: Encounter for removal of sutures Disposition: HOME SELF-CARE Condition: Stable Instructions (If sedation given, give patient instructions): Care For Your Stitches (DC) Additional Instructions: Please follow up for your appointment. Please return to emergency department if symptoms worsen. Is patient prescribed a controlled substance at d/c from ED?: No Referrals: Vaibhav Ortiz MD [Primary Care Provider] - 1-2 days Time of Disposition: 20:29
== END 2019-02-01 20:53 | disposition home or self-care (01) ==
LOC: EC 19:25
DX: Z48.02 Encounter for removal of sutures (principal); S00.12XA Contusion of left eyelid and periocular area, initial encounter; I48.91 Unspecified atrial fibrillation; E78.5 Hyperlipidemia, unspecified; I12.0 Hypertensive chronic kidney disease with stage 5 chronic kidney disease or end stage renal disease; N18.6 End stage renal disease; Z99.2 Dependence on renal dialysis; Z87.891 Personal history of nicotine dependence; Z79.01 Long term (current) use of anticoagulants; Z79.899 Other long term (current) drug therapy
CPT/HCPCS: 99283

== ENCOUNTER 2019-02-07 13:57 | Inpatient (IN) | payer MEDICARE ==
[2019-02-07] MEDS ORDERED: TOPICAL SKIN ADHESIVE 1 EACH AMP TOPICAL ONE (14:52)
--- NOTE | 2019-02-07 14:56 | ED ---
General Adult HPI - General Chief complaint: Syncope Stated complaint: Syncope, Fall Time Seen by Provider: 02/07/19 14:34 Source: patient, family, EMS Mode of arrival: EMS Limitations: no limitations - History of Present Illness Initial comments: Patient is a pleasant 83-year-old male presenting to the emergency department after a choking a syncopal episode. Patient was eating and family is present. Patient started choking and son did give the Heimlich maneuver with successful removal of food products. Following this they both fell down. Patient did pass out at some point. Patient did strike his head. Patient is on Coumadin for atrial fibrillation. Patient also sustained abrasions to right hand and left arm. Family is not 100% clear however believe that tetanus and his is less than 10 years. They do agree to follow-up with primary care physician regarding this. Patient did see a sales and marketing associate earlier today and INR was 4. - Related Data Home Medications Medication Instructions Recorded Confirmed Brimonidine Tartrate [Alphagan P 1 drop BOTH EYES BID 12/10/14 02/07/19 0.1% Ophth Soln] Timolol 0.5% Ophth Soln [Timoptic 1 drop BOTH EYES DAILY 12/11/14 02/07/19 0.5% Ophth Soln] Allopurinol [Zyloprim] 100 mg PO HS 12/27/17 02/07/19 Warfarin [Coumadin] 2.5 - 5 mg PO DIRECTED 12/27/17 02/07/19 rOPINIRole HCL [Requip] 4 mg PO TID 12/27/17 02/07/19 Tamsulosin HCl [Flomax] 0.4 mg PO BID 01/24/18 02/07/19 Pravastatin Sodium [Pravachol] 20 mg PO HS 10/04/18 02/07/19 Carbidopa-Levodopa 25-100 mg 1 tab PO BID 01/24/19 02/07/19 [Sinemet 25-100 mg] Doxepin [SINEquan] 10 mg PO HS 01/24/19 02/07/19 Furosemide [Lasix] 60 mg PO BID 01/24/19 02/07/19 Prorenal + D 1 tab PO DAILY 01/24/19 02/07/19 levOCARNitine [Levocarnitine] 330 mg PO TID-W/MEALS 01/24/19 02/07/19 Gabapentin [Neurontin] 100 mg PO TID 02/07/19 02/07/19 Previous Rx's Medication Instructions Recorded Midodrine [ProAmatine] 10 mg PO AC-TID #180 tab 01/31/18 Allergies Allergy/AdvReac Type Severity Reaction Status Date / Time No Known Allergies Allergy Verified 02/07/19 14:51 Review of Systems ROS Statement: Those systems with pertinent positive or pertinent negative responses have been documented in the HPI. ROS Other: All systems not noted in ROS Statement are negative. Constitutional: Denies: fever Eyes: Denies: eye pain ENT: Denies: ear pain Respiratory: Denies: dyspnea Cardiovascular: Denies: chest pain Endocrine: Denies: fatigue Gastrointestinal: Denies: abdominal pain Musculoskeletal: Denies: back pain Skin: Denies: rash Neurological: Denies: headache, weakness, confusion Past Medical History Past Medical History: Atrial Fibrillation, COPD, Hyperlipidemia, Hypertension, Renal Disease Additional Past Medical History / Comment(s): HAS HEMODIALYSIS - MON,WED, FRI , GLAUCOMA,MACULAR DEGENERATION History of Any Multi-Drug Resistant Organisms: None Reported Past Surgical History: Hernia Repair Additional Past Surgical History / Comment(s): Mastoid surgery X3 Past Anesthesia/Blood Transfusion Reactions: Previous Problems w/ Anesthesia Additional Past Anesthesia/Blood Transfusion Reaction / Comment(s): STATES TOOK LONGER WAKING UP Past Psychological History: No Psychological Hx Reported Smoking Status: Former smoker Past Alcohol Use History: None Reported Past Drug Use History: None Reported - Past Family History Sister(s) Family Medical History: Cancer Son(s) Family Medical History: Cancer Father Family Medical History: Asthma Mother Family Medical History: Hypertension General Exam Limitations: no limitations General appearance: alert, in no apparent distress Head exam: Present: other (Forehead lacerations. Healed laceration on the left side as well. There is also facial ecchymosis.) Eye exam: Present: normal appearance, PERRL, EOMI. Absent: nystagmus ENT exam: Present: normal oropharynx Neck exam: Present: normal inspection. Absent: tenderness Respiratory exam: Present: normal lung sounds bilaterally. Absent: chest wall tenderness Cardiovascular Exam: Present: irregular rhythm Expanded Peripheral pulses: 2+: Radial (R), Radial (L), Posterior Tibialis (R), Posterior Tibialis (L) GI/Abdominal exam: Present: soft. Absent: tenderness Extremities exam: Present: pedal edema (+1 bilaterally). Absent: calf tenderness Neurological exam: Present: alert, oriented X3, CN II-XII intact. Absent: motor sensory deficit Expanded Neurological exam: Present: protecting the airway Patient oriented to: Present: person, place, time Speech: Present: fluid speech Cranial nerves: EOM's Intact: Normal Motor strength exam: RUE: 5, LUE: 5, RLE: 5, LLE: 5 Eye Response: (4) open spontaneously Motor Response: (6) obeys commands Verbal Response: (5) oriented Psychiatric exam: Present: normal affect, normal mood Skin exam: Present: other (2 forehead lacerations. Skin tears to right dorsal hand. Skin tears to left arm) Course Vital Signs 02/07/19 02/07/19 14:01 15:27 Temperature 97.8 F Pulse Rate 87 86 Respiratory 16 16 Rate Blood Pressure 87/69 96/66 O2 Sat by Pulse 91 L 94 L Oximetry - Reevaluation(s) Reevaluation #1: 02/07/19 14:57 Family states they believe tetanus is up-to-date did not 100% clear. They will follow up with primary care physician for this. Patient also had a fall around a week ago and had repair of injury at that time. Family is advised to discuss anticoagulation with sales and marketing associate secondary to recent falls. 02/07/19 16:38 Patient is being admitted to the hospital with syncope for observation and cardiac consult. Coumadin will be held. Patient is cleared on trauma standpoint. EKG Findings - EKG Comments: EKG Findings:: A. fib with rate of 85. QRS 78. QT 36. QTc 448. Normal axis. Normal QRS. T wave inversion leads V1 through V3. Procedures - Laceration Laceration #1 Consent Obtained: verbal consent Indication: laceration Site: face (Forehead) Size (cm): 4 Description: linear Pre-repair: wound explored, irrigated extensively Type of Sutures: other (Closed with Dermabond) Patient Tolerated Procedure: well, no complications Medical Decision Making - Medical Decision Making Patient reevaluated and resting comfortably in bed. Patient and family updated on results and plan. Case was discussed with practitioner Amberly, covering for Dr. More was previously admitted this patient and will admit. - Lab Data Result diagrams: 02/07/19 14:10 02/07/19 14:10 Lab Results 02/07/19 02/07/19 02/07/19 Range/Units 14:10 14:10 14:10 WBC 5.3 (3.8-10.6) k/uL RBC 3.16 L (4.30-5.90) m/uL Hgb 10.8 L (13.0-17.5) gm/dL Hct 31.9 L (39.0-53.0) % MCV 100.9 H D (80.0-100.0) fL MCH 34.2 (25.0-35.0) pg MCHC 33.9 (31.0-37.0) g/dL RDW 14.3 (11.5-15.5) % Plt Count 133 L (150-450) k/uL Neutrophils % 72 % Lymphocytes % 14 % Monocytes % 7 % Eosinophils % 4 % Basophils % 1 % Neutrophils # 3.8 (1.3-7.7) k/uL Lymphocytes # 0.7 L (1.0-4.8) k/uL Monocytes # 0.4 (0-1.0) k/uL Eosinophils # 0.2 (0-0.7) k/uL Basophils # 0.0 (0-0.2) k/uL Macrocytosis Slight PT 41.2 H (9.0-12.0) sec INR 4.3 H (<1.2) APTT 51.5 H (22.0-30.0) sec Sodium 135 L (137-145) mmol/L Potassium 5.2 H (3.5-5.1) mmol/L Chloride 94 L (98-107) mmol/L Carbon Dioxide 31 H (22-30) mmol/L Anion Gap 10 mmol/L BUN 56 H (9-20) mg/dL Creatinine 4.15 H (0.66-1.25) mg/dL Est GFR (CKD-EPI)AfAm 14 (>60 ml/min/1.73 sqM) Est GFR (CKD-EPI)NonAf 12 (>60 ml/min/1.73 sqM) Glucose 113 H (74-99) mg/dL Calcium 8.7 (8.4-10.2) mg/dL Total Bilirubin 1.1 (0.2-1.3) mg/dL AST 36 (17-59) U/L ALT 10 L (21-72) U/L Alkaline Phosphatase 315 H (38-126) U/L Total Protein 6.0 L (6.3-8.2) g/dL Albumin 3.1 L (3.5-5.0) g/dL - Radiology Data Radiology results: report reviewed (Computed tomography scan of the brain shows no acute process), image reviewed (Chest x-ray shows left-sided effusion. Interstitial changes.) Disposition Clinical Impression: Syncope Disposition: ADMITTED IP TO THIS HOSP Is patient prescribed a controlled substance at d/c from ED?: No Referrals: Vaibhav Ortiz MD [Primary Care Provider] - 1-2 days Decision Time: 16:38
[2019-02-07 15:20] LABS: INR 4.3 (<1.2); Partial Thromboplastin Time 51.5 sec (22.0-30.0); Prothrombin Time 41.2 sec (9.0-12.0)
[2019-02-07 15:22] LABS: Albumin 3.1 g/dL (3.5-5.0); Calcium 8.7 mg/dL (8.4-10.2); Potassium 5.2 mmol/L (3.5-5.1); Total Bilirubin 1.1 mg/dL (0.2-1.3)
[2019-02-07 15:24] LABS: Basophils % (A) 1 %; Eosinophils # (A) 0.2 k/uL (0-0.7); Eosinophils % (A) 4 %; HCT 31.9 % (39.0-53.0); HGB 10.8 gm/dL (13.0-17.5); Lymphocytes # (A) 0.7 k/uL (1.0-4.8); Lymphocytes % (A) 14 %; MCH 34.2 pg (25.0-35.0); MCHC 33.9 g/dL (31.0-37.0); Macrocytosis Slight; Monocytes # (A) 0.4 k/uL (0-1.0); Monocytes % (A) 7 %; Neutrophils # (A) 3.8 k/uL (1.3-7.7); Neutrophils % (A) 72 %; Platelet Count 133 k/uL (150-450); RBC 3.16 m/uL (4.30-5.90); RDW 14.3 % (11.5-15.5); WBC 5.3 k/uL (3.8-10.6)
[2019-02-07 15:26] LABS: MCV 100.9 fL (80.0-100.0)
--- NOTE | 2019-02-07 15:57 | CT ---
EXAMINATION TYPE: CT brain wo con DATE OF EXAM: 02/07/2019 COMPARISON: 01/24/2019 HISTORY: Syncope CT DLP: [address] of the brain was performed. The ventricles, basal cisterns and sulci overlying the cerebral convexities demonstrate moderate enla rgement. There is no evidence for intracranial hemorrhage or sulcal effacement. There is decreased attenuation about the periventricular white matter and deep white matter of both c erebral hemispheres, compatible with chronic small vessel ischemia. Differential diagnosis does inclu de demyelination. No mass effects are seen.No midline shift. Osseous calvarium is intact. If symptoms persist consider MRI. IMPRESSION: 1. Age related atrophic and chronic small vessel ischemic change without acute intracranial process s een at this time.
--- NOTE | 2019-02-07 16:38 | XR ---
EXAMINATION TYPE: XR chest 2V DATE OF EXAM: 02/07/2019 COMPARISON: 01/24/2019 HISTORY: Shortness of breath TECHNIQUE: Frontal and lateral views of the chest are obtained. FINDINGS: Scattered senescent parenchymal changes noted. Hyperinflation compatible with COPD. Left lower lobe atelectasis and pleural effusion. Infiltrate not excluded. Pulmonary venous congestio n without overt failure. Heart size is stable. Mediastinal structures are stable and grossly unremarkable. No evidence for hilar prominence. Degenerative changes dorsal spine. IMPRESSION: 1. Left lower lobe atelectasis and pleural effusion. Infiltrate not excluded. Pulmonary venous conges tion without overt failure.
[2019-02-07] MEDS ORDERED: NALOXONE 0.4 MG/ML 1 ML VIAL IV PRN (16:40)
[2019-02-07] MEDS ORDERED: ALBUTEROL NEBULIZED 2.5 MG/3 ML INHALATION PRN (19:59)
[2019-02-07] MEDS: MIDODRINE 5 MG TAB PO SCH (20:11)
--- NOTE | 2019-02-07 20:39 | P.HPIM ---
History of Present Illness This is a pleasant 83 years old female with past medical history of atrial fibrillation, COPD, hypertension, hyperlipidemia, end-stage renal disease on hemodialysis. She presents because of syncope and fall hitting her head. As in patient with family at bedside he was at the restaurant and he choked with a piece of [place] and he managed to spit it out however eventually passed out as a result, he fell and hit his head. Patient has multiple bruises and wounds on his forehead and cheeks, his wounds are closed and bleeding has stopped, also he has another wound in his right hand which is controlled and dressing is in place. He's undergoing chronic dyspnea and chronic cough with clear phlegm. Patient states that he has chronic problem with swallowing for many months. Patient denies chest pain or abdominal pain, no change in bowel habits, no diarrhea. Patient makes little amount of urine but without dysuria On admission she was hypotensive with blood pressure 87/69, she was afebrile and heart rate in 80S, his oxygen saturation is in 99% on room air. Hemoglobin 10.8, WBC and platelets are within normal limits, INR is supratherapeutic with 4.3. Creatinine is 4.1, compared to [facility] baseline of 3.0-4.2. Potassium 5.2, [place] 135[place] [address]. Liver enzymes are not elevated. EKG showed atrial fibrillation at [address]-T changes, chest x-ray: Left lower lobe atelectasis versus pleural effusion and consolidation cannot be excluded. Pulmonary venous congestion. CT of the brain showing atrophic changes without acute intracranial process Cardiology team already is been consulted by emergency room team Review of Systems CONSTITUTIONAL: No fever, no malaise, no fatigue. HEENT: No recent visual problems or hearing problems. Denied any sore throat. CARDIOVASCULAR: No orthopnea, PND, no palpitations PULMONARY: no hemoptysis. GASTROINTESTINAL: No diarrhea, no nausea, no vomiting, no abdominal pain. Normoactive bowel sounds. NEUROLOGICAL: No headaches, no weakness, no numbness. HEMATOLOGICAL: Denies any bleeding or petechiae. GENITOURINARY: Denies any burning micturition, frequency, or urgency. MUSCULOSKELETAL/RHEUMATOLOGICAL: Denies any joint pain, swelling, or any muscle pain. ENDOCRINE: Denies any polyuria or polydipsia. Past Medical History Past Medical History: Atrial Fibrillation, COPD, Hyperlipidemia, Hypertension, Renal Disease Additional Past Medical History / Comment(s): HAS HEMODIALYSIS - MON,WED, FRI , GLAUCOMA,MACULAR DEGENERATION History of Any Multi-Drug Resistant Organisms: None Reported Past Surgical History: Hernia Repair Additional Past Surgical History / Comment(s): Mastoid surgery X3 Past Anesthesia/Blood Transfusion Reactions: Previous Problems w/ Anesthesia Additional Past Anesthesia/Blood Transfusion Reaction / Comment(s): STATES TOOK LONGER WAKING UP Past Psychological History: No Psychological Hx Reported Smoking Status: Former smoker Past Alcohol Use History: None Reported Past Drug Use History: None Reported - Past Family History Sister(s) Family Medical History: Cancer Son(s) Family Medical History: Cancer Father Family Medical History: Asthma Mother Family Medical History: Hypertension Medications and Allergies Home Medications Medication Instructions Recorded Confirmed Type Brimonidine Tartrate [Alphagan P 1 drop BOTH EYES BID 12/10/14 02/07/19 History 0.1% Ophth Soln] Timolol 0.5% Ophth Soln [Timoptic 1 drop BOTH EYES DAILY 12/11/14 02/07/19 History 0.5% Ophth Soln] Allopurinol [Zyloprim] 100 mg PO HS 12/27/17 02/07/19 History Warfarin [Coumadin] 2.5 - 5 mg PO DIRECTED 12/27/17 02/07/19 History rOPINIRole HCL [Requip] 4 mg PO TID 12/27/17 02/07/19 History Tamsulosin HCl [Flomax] 0.4 mg PO BID 01/24/18 02/07/19 History Midodrine [ProAmatine] 10 mg PO AC-TID #180 tab 01/31/18 02/07/19 Rx Pravastatin Sodium [Pravachol] 20 mg PO HS 10/04/18 02/07/19 History Carbidopa-Levodopa 25-100 mg 1 tab PO BID 01/24/19 02/07/19 History [Sinemet 25-100 mg] Doxepin [SINEquan] 10 mg PO HS 01/24/19 02/07/19 History Furosemide [Lasix] 60 mg PO BID 01/24/19 02/07/19 History Prorenal + D 1 tab PO DAILY 01/24/19 02/07/19 History levOCARNitine [Levocarnitine] 330 mg PO TID-W/MEALS 01/24/19 02/07/19 History Albuterol Nebulized [Ventolin 2.5 mg INHALATION TID 02/07/19 02/07/19 History Nebulized] Gabapentin [Neurontin] 100 mg PO TID 02/07/19 02/07/19 History Allergies Allergy/AdvReac Type Severity Reaction Status Date / Time No Known Allergies Allergy Verified 02/07/19 14:51 Physical Exam Vitals: Vital Signs Temp Pulse Resp BP Pulse Ox 02/07/19 16:30 85 16 102/66 99 02/07/19 15:27 86 16 96/66 94 L 02/07/19 14:01 97.8 F 87 16 87/69 91 L Intake and Output 02/07/19 02/07/19 02/07/19 06:59 14:59 22:59 Other: Weight 67 kg GENERAL: The patient is alert and oriented x3, not in any acute distress. Well developed, well nourished. -HEENT: Pupils are round and equally reacting to light. EOMI. No scleral icterus. No conjunctival pallor. Normocephalic, atraumatic. No pharyngeal erythema. No thyromegaly. Multiple lipomas on the cheeks with wants on the forehead,x2, closed with no bleeding CARDIOVASCULAR: S1 and S2 present. No murmurs, rubs, or gallops. PULMONARY: Chest is clear to auscultation, no wheezing or crackles. ABDOMEN: Soft, nontender, nondistended, normoactive bowel sounds. No palpable organomegaly. MUSCULOSKELETAL: No joint swelling or deformity. -EXTREMITIES: No cyanosis, clubbing, or pedal edema. Closed Wound on the right hand with a bruise. NEUROLOGICAL: Gross neurological examination did not reveal any focal deficits. SKIN: No rashes. No petechiae Results CBC & Chem 7: 02/07/19 14:10 02/07/19 14:10 Labs: Abnormal Lab Results - Last 24 Hours (Table) 02/07/19 02/07/19 02/07/19 Range/Units 14:10 14:10 14:10 RBC 3.16 L (4.30-5.90) m/uL Hgb 10.8 L (13.0-17.5) gm/dL Hct 31.9 L (39.0-53.0) % MCV 100.9 H D (80.0-100.0) fL Plt Count 133 L (150-450) k/uL Lymphocytes # 0.7 L (1.0-4.8) k/uL PT 41.2 H (9.0-12.0) sec INR 4.3 H (<1.2) APTT 51.5 H (22.0-30.0) sec Sodium 135 L (137-145) mmol/L Potassium 5.2 H (3.5-5.1) mmol/L Chloride 94 L (98-107) mmol/L Carbon Dioxide 31 H (22-30) mmol/L BUN 56 H (9-20) mg/dL Creatinine 4.15 H (0.66-1.25) mg/dL Glucose 113 H (74-99) mg/dL ALT 10 L (21-72) U/L Alkaline Phosphatase 315 H (38-126) U/L Total Protein 6.0 L (6.3-8.2) g/dL Albumin 3.1 L (3.5-5.0) g/dL Assessment and Plan Assessment: Syncope , mostly vasovagal syncope associated with choking. Difficulty swallowing pulmonary congestion, present on admission Chronic bronchitis with chronic cough and dyspnea. Patient has COPD, does not look in acute exacerbation coagulopathy secondary to Coumadin Fall with head trauma End-stage kidney disease on hemodialysis Chronic atrial fibrillation on Coumadin Hyperlipidemia Plan: This is a pleasant 83 years old male who presents with syncope, coagulopathy and pulmonary congestion. 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 cardiology already contacted by ED team. Telemetry, serial troponin, hold Coumadin until therapeutic INR. Place the patient on neuro checks. Ask for physical therapy evaluation. Labs and medication were reviewed.. Continue same treatment. Continue with symptomatic treatment. Resume home medication. Monitor lytes and vitals. DVT and GI prophylaxis. Further recommendations of the clinical course of the patient DVT prophylaxis: No anticoagulation in view of supratherapeutic Coumadin GI Prophylaxis: Pepcid PT/OT: Pending Prognosis is guarded
[2019-02-07] MEDS: SODIUM CHLORIDE 0.9% 1,000 ML IV SCH (20:54)
[2019-02-07] MEDS: levOCARNitine (WITH SUGAR) 100 MG/ML BOTTLE PO SCH (20:54)
[2019-02-07] MEDS: ALBUTEROL NEBULIZED 2.5 MG/3 ML INHALATION SCH (20:55)
[2019-02-07] MEDS: CARBIDOPA-LEVODOPA 25-100 MG 1 EACH TAB PO SCH (21:36)
[2019-02-07] MEDS: PRAVASTATIN SODIUM 20 MG TAB PO SCH (21:36)
[2019-02-07] MEDS: DOXEPIN 10 MG CAP PO SCH (21:36)
[2019-02-07] MEDS: rOPINIRole HCL 4 MG TABLET PO SCH (21:36)
[2019-02-07] MEDS: ALLOPURINOL 100 MG TAB PO SCH (21:36)
[2019-02-07] MEDS: TAMSULOSIN 0.4 MG CAP.ER.24H PO SCH (21:36)
[2019-02-07] MEDS: GABAPENTIN 100 MG CAP PO SCH (21:36)
[2019-02-07] MEDS: FAMOTIDINE 20 MG/2 ML VIAL IV SCH (21:37)
[2019-02-07] MEDS: BRIMONIDINE TARTRATE 0.2% DROPS 5 ML BTL BOTH EYES SCH (21:37)
[2019-02-07] MEDS: TIMOLOL 0.5% OPHTH DROPS 5 ML BTL BOTH EYES SCH (21:37)
[2019-02-08 00:43] LABS: Amorphous Sediment,Urine Rare /hpf; Appearance,Urine Clear (Clear); Bilirubin,Urine Negative (Negative); Blood,Urine Negative (Negative); Color,Urine Yellow; Glucose,Urine (UA) Negative (Negative); Hyaline Casts,Urine 11 /lpf (0-2); Ketones,Urine Negative (Negative); Leukocyte Esterase,Urine Negative (Negative); Mucus,Urine Rare /hpf; Nitrite,Urine Negative (Negative); PH, Urine 6.5 (5.0-8.0); Protein,Urine 1+ (Negative); Specific Gravity,Urine 1.014 (1.001-1.035); Squamous Epithelial Cell,Urine <1 /hpf (0-4); Urobilinogen,Urine <2.0 mg/dL (<2.0)
[2019-02-08 07:46] LABS: INR 3.8 (<1.2); Prothrombin Time 36.6 sec (9.0-12.0)
[2019-02-08 08:06] LABS: Basophils % (A) 1 %; Eosinophils # (A) 0.2 k/uL (0-0.7); Eosinophils % (A) 4 %; HGB 10.8 gm/dL (13.0-17.5); Hypochromasia Slight; Lymphocytes # (A) 0.9 k/uL (1.0-4.8); Lymphocytes % (A) 14 %; MCH 34.2 pg (25.0-35.0); MCHC 32.9 g/dL (31.0-37.0); MCV 104.2 fL (80.0-100.0); Macrocytosis Moderate; Mean Platelet Volume 6.9; Monocytes # (A) 0.6 k/uL (0-1.0); Monocytes % (A) 9 %; Neutrophils # (A) 4.4 k/uL (1.3-7.7); Neutrophils % (A) 70 %; Platelet Count 121 k/uL (150-450); RBC 3.17 m/uL (4.30-5.90); RDW 14.3 % (11.5-15.5); WBC 6.3 k/uL (3.8-10.6)
[2019-02-08 08:18] LABS: Calcium 8.7 mg/dL (8.4-10.2); Potassium 5.4 mmol/L (3.5-5.1)
[2019-02-08] MEDS: ALBUTEROL NEBULIZED 2.5 MG/3 ML INHALATION SCH ×3 (09:04→19:47)
[2019-02-08] MEDS ORDERED: GELATIN SPONGE,ABSORB (LARGE) 1 EACH SPONGE TOPICAL STA ×2 (09:15→19:40)
[2019-02-08] MEDS ORDERED: GELATIN SPONGE,ABSORB (SMALL) 1 EACH SPONGE TOPICAL STA ×2 (09:19→19:43)
[2019-02-08] MEDS: CARBIDOPA-LEVODOPA 25-100 MG 1 EACH TAB PO SCH ×2 (09:34→22:35)
[2019-02-08] MEDS: FAMOTIDINE 20 MG/2 ML VIAL IV SCH (09:34)
[2019-02-08] MEDS: FUROSEMIDE 20 MG TAB PO SCH ×2 (09:35→17:48)
[2019-02-08] MEDS: GABAPENTIN 100 MG CAP PO SCH ×3 (09:35→22:36)
[2019-02-08] MEDS: rOPINIRole HCL 4 MG TABLET PO SCH (09:36)
[2019-02-08] MEDS: TAMSULOSIN 0.4 MG CAP.ER.24H PO SCH ×2 (09:36→22:35)
[2019-02-08] MEDS: NON FORMULARY DRUG (Prorenal + D 1 TAB) PO SCH (09:36)
[2019-02-08] MEDS: MIDODRINE 5 MG TAB PO SCH ×3 (09:36→17:49)
[2019-02-08] MEDS: levOCARNitine (WITH SUGAR) 100 MG/ML BOTTLE PO SCH ×3 (09:58→17:47)
[2019-02-08] MEDS: BRIMONIDINE TARTRATE 0.2% DROPS 5 ML BTL BOTH EYES SCH ×2 (09:59→22:45)
--- NOTE | 2019-02-08 10:07 | P.CON ---
Consult Note - . Consult date: 02/08/19 Assessment/Plan:: This is a pleasant 83-year-old male who is being seen by wound care for ulcerations to the bilateral upper extremities. The patient sustained a fall due to syncope. Patient has multiple lacerations and bruising on face and bilateral arms. His right upper extremity distal aspect continues to have sanguinous drainage. Nursing has been unable to achieve hemostasis. Patient's INR is supratherapeutic at 4.3. Skin tear to the left upper extremity has hemostasis Steri-Strips were in place. Ulcerations are skin tears in nature. Periwound skin is unattached. Review Of Systems: Constitutional: No fever, no chills, no night sweats. No weight change. Report weakness, no fatigue or lethargy. No daytime sleepiness. Integumentary: Reports wounds. No rash or pruritus. Report unusual bruising. No change in hair or nails. General Appearance: Alert, cooperative, no distress, appears stated age. Skin: See above, skin turgor to decrease ecchymosis noted to face bilateral arms and chest, multiple healing lesions to face bilateral arms and chest. Neurologic: Alert oriented x3 cranial nerves II through XII intact, no motor deficit Assessment/plan: 1. Ulceration related to skin tear bilateral upper extremities. Right upper extremity applied Gelfoam wrap with rolled gauze until hemostasis is achieved. Once hemostasis is achieved apply skin barrier cream to site daily cover with rolled gauze. Left upper extremity apply zinc barrier cream to site cover with rolled gauze changed daily. Thank you for the consultation any questions please contact the wound care center. DNP note has been reviewed and discussed with Dr. Stubbs and the impression and plan of care has been directed as dictated.
[2019-02-08 11:13] VITALS: BMI 23.1
--- NOTE | 2019-02-08 13:15 | P.PN ---
Subjective This is a pleasant 83 years old female with past medical history of atrial fibrillation, COPD, hypertension, hyperlipidemia, end-stage renal disease on hemodialysis. She presents because of syncope and fall hitting her head. As inpatient with family at bedside he was at the restaurant and he choked with a piece of [place] and he managed to spit it out however eventually passed out as a result, he fell and hit his head. Patient has multiple bruises and wounds on his forehead and cheeks, his wounds are closed and bleeding has stopped, also he has another wound in his right hand which is controlled and dressing is in place. He's undergoing chronic dyspnea and chronic cough with clear phlegm. Patient states that he has chronic problem with swallowing for many months. Patient denies chest pain or abdominal pain, no change in bowel habits, no diarrhea. Patient makes little amount of urine but without dysuria On admission she was hypotensive with blood pressure 87/69, she was afebrile and heart rate in 80S, his oxygen saturation is in 99% on room air. Hemoglobin 10.8, WBC and platelets are within normal limits, INR is supratherapeutic with 4.3. Creatinine is 4.1, compared to [facility] baseline of 3.0-4.2. Potassium 5.2, [place] [address]. Liver enzymes are not elevated. EKG showed atrial fibrillation at [address]-T changes, chest x-ray: Left lower lobe atelectasis versus pleural effusion and consolidation cannot be excluded. Pulmonary venous congestion. CT of the brain showing atrophic changes without acute intracranial process Cardiology team already is been consulted by emergency room team 02/08/2019 Mónica is awake, however his more sleepy, easily arousable. He denies headache or chest pain or dyspnea. His wounds are covered. Blood pressure is 97/62. Saturating 95% on 2 L. Labs showing stable hemoglobin of 10.8, WBC 6.3K, INR is trending down to 3.8, sodium 136, potassium 5.4, and creatinine 4.6. Urinalysis is not suspicious for infection. Computed tomography scan of the head is ordered stat to reassess possibility of bleeding although he has negative CAT scan yesterday, results are still pending. We'll check swallow evaluation, wound consult is appreciated and fully recommendation. Patient to continue on medial drain, keep holding Coumadin. Physical therapy is pending Review of systems CONSTITUTIONAL: No fever, no malaise, no fatigue. HEENT: No recent visual problems or hearing problems. Denied any sore throat. CARDIOVASCULAR: No orthopnea, PND, no palpitations, no syncope. PULMONARY: no cough, no hemoptysis. GASTROINTESTINAL: No diarrhea, no nausea, no vomiting, no abdominal pain. Normoactive bowel sounds. NEUROLOGICAL: No headaches, no weakness, no numbness. HEMATOLOGICAL: Denies any bleeding or petechiae. GENITOURINARY: Denies any burning micturition, frequency, or urgency. MUSCULOSKELETAL/RHEUMATOLOGICAL: Denies any joint pain, swelling, or any muscle pain. ENDOCRINE: Denies any polyuria or polydipsia. Active Medications Generic Name Dose Route Start Last Admin Trade Name Freq PRN Reason Stop Dose Admin Acetaminophen 650 mg 02/08/19 11:02 Tylenol Tab PO Q6HR PRN Fever and/ or Mild Pain Albuterol Sulfate 2.5 mg 02/07/19 20:00 02/08/19 09:04 Ventolin Nebulized INHALATION 2.5 mg RT-TID SHILA Administration Albuterol Sulfate 2.5 mg 02/07/19 19:59 Ventolin Nebulized INHALATION RT-Q4H PRN Shortness Of Breath Or Wheezing Allopurinol 100 mg 02/07/19 21:00 02/07/19 21:36 Zyloprim PO 100 mg HS SHILA Administration Brimonidine Tartrate 1 drops 02/07/19 21:00 02/08/19 09:59 Alphagan P 0.2% Ophth Soln BOTH EYES 1 drops BID SHILA Administration Carbidopa/Levodopa 1 each 02/07/19 21:00 02/08/19 09:34 Sinemet 25-100 PO 1 each BID SHILA Administration Doxepin HCl 10 mg 02/07/19 21:00 02/07/19 21:36 Sinequan PO 10 mg HS SHILA Administration Famotidine 20 mg 02/07/19 21:00 02/08/19 09:34 Pepcid IV 20 mg Q12HR SHILA Administration Furosemide 60 mg 02/08/19 09:00 02/08/19 09:35 Lasix PO 60 mg BID@0900,1600 SHILA Administration Gabapentin 100 mg 02/07/19 22:00 02/08/19 09:35 Neurontin PO 100 mg TID SHILA Administration Sodium Chloride 1,000 mls @ 20 mls/hr 02/07/19 16:45 02/07/19 20:54 Saline 0.9% IV Not Given .Q24H SHILA Levocarnitine 330 mg 02/07/19 17:30 02/08/19 09:58 Carnitor Oral Soln PO 330 mg TID-W/MEALS SHILA Administration Midodrine 10 mg 02/07/19 17:30 02/08/19 09:36 Proamatine PO 10 mg AC-TID SHILA Administration Naloxone HCl 0.2 mg 02/07/19 16:40 Narcan IV Q2M PRN Opioid Reversal Non-Formulary Medication 1 tab 02/08/19 09:00 02/08/19 09:36 Prorenal + D PO Not Given DAILY [facility] Pravastatin Sodium 20 mg 02/07/19 21:00 02/07/19 21:36 Pravachol PO 20 mg HS SHILA Administration Ropinirole HCl 5 mg 02/08/19 16:00 Requip PO TID SHILA Tamsulosin HCl 0.4 mg 02/07/19 21:00 02/08/19 09:36 Flomax PO 0.4 mg BID SHILA Administration Timolol Maleate 1 drops 02/08/19 09:00 02/07/19 21:37 Timoptic BOTH EYES 1 drops DAILY SHILA Administration Objective - Vital Signs Vital signs: Vital Signs Temp 98.6 F 02/08/19 11:21 Pulse 89 02/08/19 11:21 Resp 17 02/08/19 11:21 BP 97/62 02/08/19 11:21 Pulse Ox 95 02/08/19 11:21 Intake & Output 02/07/19 02/08/19 02/08/19 18:59 06:59 18:59 Output Total 800 450 Balance -800 -450 Weight 67 kg 67 kg Output: Urine 800 450 Other: Voiding Method Urinal Urinal # Voids 1 # Bowel Movements 1 - Exam -GENERAL: The patient is alert and oriented x3, however patient is more sleepy today -HEENT: Pupils are round and equally reacting to light. EOMI. No scleral ict erus. No conjunctival pallor. Normocephalic, atraumatic. No pharyngeal erythema. No thyromegaly. Multiple lipomas on the cheeks with wants on the forehead,x2, closed with no bleeding CARDIOVASCULAR: S1 and S2 present. No murmurs, rubs, or gallops. PULMONARY: Chest is clear to auscultation, no wheezing or crackles. ABDOMEN: Soft, nontender, nondistended, normoactive bowel sounds. No palpable organomegaly. MUSCULOSKELETAL: No joint swelling or deformity. -EXTREMITIES: No cyanosis, clubbing, or pedal edema. Closed Wound on the right hand with a bruise. Dressing is in place NEUROLOGICAL: Gross neurological examination did not reveal any focal deficits. SKIN: No rashes. No petechiae - Labs CBC & Chem 7: 02/08/19 07:21 02/08/19 07:21 Labs: Abnormal Lab Results - Last 24 Hours (Table) 02/07/19 02/07/19 02/07/19 Range/Units 14:10 14:10 14:10 RBC 3.16 L (4.30-5.90) m/uL Hgb 10.8 L (13.0-17.5) gm/dL Hct 31.9 L (39.0-53.0) % MCV 100.9 H D (80.0-100.0) fL Plt Count 133 L (150-450) k/uL Lymphocytes # 0.7 L (1.0-4.8) k/uL PT 41.2 H (9.0-12.0) sec INR 4.3 H (<1.2) APTT 51.5 H (22.0-30.0) sec Sodium 135 L (137-145) mmol/L Potassium 5.2 H (3.5-5.1) mmol/L Chloride 94 L (98-107) mmol/L Carbon Dioxide 31 H (22-30) mmol/L BUN 56 H (9-20) mg/dL Creatinine 4.15 H (0.66-1.25) mg/dL Glucose 113 H (74-99) mg/dL ALT 10 L (21-72) U/L Alkaline Phosphatase 315 H (38-126) U/L Total Protein 6.0 L (6.3-8.2) g/dL Albumin 3.1 L (3.5-5.0) g/dL Urine Protein (Negative) Amorphous Sediment (None) /hpf Hyaline Casts (0-2) /lpf Urine Mucus (None) /hpf 02/08/19 02/08/19 02/08/19 Range/Units 00:15 07:21 07:21 RBC 3.17 L (4.30-5.90) m/uL Hgb 10.8 L (13.0-17.5) gm/dL Hct 33.0 L (39.0-53.0) % MCV 104.2 H (80.0-100.0) fL Plt Count 121 L (150-450) k/uL Lymphocytes # 0.9 L (1.0-4.8) k/uL PT 36.6 H (9.0-12.0) sec INR 3.8 H (<1.2) APTT (22.0-30.0) sec Sodium (137-145) mmol/L Potassium (3.5-5.1) mmol/L Chloride (98-107) mmol/L Carbon Dioxide (22-30) mmol/L BUN (9-20) mg/dL Creatinine (0.66-1.25) mg/dL Glucose (74-99) mg/dL ALT (21-72) U/L Alkaline Phosphatase (38-126) U/L Total Protein (6.3-8.2) g/dL Albumin (3.5-5.0) g/dL Urine Protein 1+ H (Negative) Amorphous Sediment Rare H (None) /hpf Hyaline Casts 11 H (0-2) /lpf Urine Mucus Rare H (None) /hpf 02/08/19 Range/Units 07:21 RBC (4.30-5.90) m/uL Hgb (13.0-17.5) gm/dL Hct (39.0-53.0) % MCV (80.0-100.0) fL Plt Count (150-450) k/uL Lymphocytes # (1.0-4.8) k/uL PT (9.0-12.0) sec INR (<1.2) APTT (22.0-30.0) sec Sodium 136 L (137-145) mmol/L Potassium 5.4 H (3.5-5.1) mmol/L Chloride 96 L (98-107) mmol/L Carbon Dioxide (22-30) mmol/L BUN 66 H (9-20) mg/dL Creatinine 4.64 H (0.66-1.25) mg/dL Glucose (74-99) mg/dL ALT (21-72) U/L Alkaline Phosphatase (38-126) U/L Total Protein (6.3-8.2) g/dL Albumin (3.5-5.0) g/dL Urine Protein (Negative) Amorphous Sediment (None) /hpf Hyaline Casts (0-2) /lpf Urine Mucus (None) /hpf Assessment and Plan Assessment: Syncope , mostly vasovagal syncope associated with choking. Difficulty swallowing pulmonary congestion, present on admission Chronic bronchitis with chronic cough and dyspnea. Patient has COPD, does not look in acute exacerbation coagulopathy secondary to Coumadin Fall with head trauma End-stage kidney disease on hemodialysis Chronic atrial fibrillation on Coumadin Hyperlipidemia Plan: This is a pleasant 83 years old male who presents with syncope, coagulopathy and pulmonary congestion. 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 Repeat CAT scan of the head fanta until therapeutic INR. Place the patient on neuro checks. Ask for physical therapy evaluation. Labs and medication were reviewed.. Continue same treatment. Continue with symptomatic treatment. Resume home medication. Monitor lytes and vitals. DVT and GI prophylaxis. Further recommendations of the clinical course of the patient DVT prophylaxis: No anticoagulation in view of supratherapeutic Coumadin GI Prophylaxis: Pepcid PT/OT: Pending Prognosis is guarded
--- NOTE | 2019-02-08 13:16 | CT ---
EXAMINATION TYPE: CT brain wo con DATE OF EXAM: 02/08/2019 COMPARISON: 02/07/2019 HISTORY: Altered mental status CT DLP: 988.[address] of the brain was performed. The ventricles, basal cisterns and sulci overlying the cerebral convexities demonstrate mild enlargem ent. There is no evidence for intracranial hemorrhage or sulcal effacement. There is decreased attenuation about the periventricular white matter and deep white matter of both c erebral hemispheres, compatible with chronic small vessel ischemia. Differential diagnosis does inclu de demyelination. No mass effects are seen.No midline shift. Osseous calvarium is intact. If symptoms persist consider MRI. IMPRESSION: 1. Age related atrophic and chronic small vessel ischemic change without acute intracranial process s een at this time.
[2019-02-08] MEDS ORDERED: PIPERACILLIN-TAZOBACTAM 3.375 GM in SODIUM CHLORIDE 0.9% 100 ML IVPB SCH ×4 (16:00)
[2019-02-08] MEDS: SODIUM CHLORIDE 0.9% 1,000 ML IV SCH (19:33)
--- NOTE | 2019-02-08 21:30 | CONS ---
CONSULTATION REASON FOR CONSULT: End-stage renal disease. HISTORY OF PRESENT ILLNESS: Patient is an 83-year-old male who was admitted to the hospital with history of fall. The patient states that he was feeling weak and he fell. Patient was at a restaurant when he choked on his food following which he did fall. When patient was initially brought in, he was hypotensive with blood pressure 87/69. He denied any fever or chills. Patient is due for hemodialysis today. There is evidence of pulmonary vascular congestion on the chest x-ray. PAST MEDICAL HISTORY: Atrial fibrillation, COPD, end-stage renal disease, hypertension, glaucoma, macular degeneration. PAST SURGICAL HISTORY: Hernia repair, mastoid surgery. SOCIAL HISTORY: Patient is a former smoker. No history of drug abuse or alcohol abuse. MEDICATIONS: Medications prior to admission included Zyloprim, Coumadin, Requip, Flomax, midodrine, Pravachol, Lasix, levocarnitine, Neurontin, multivitamins. ALLERGIES: None. REVIEW OF SYSTEMS: As per HPI. Other systems negative. EXAMINATION: Patient is comfortable, awake, not in any acute distress. Blood pressure this morning was 98/58, heart rate of 80 per minute, patient is afebrile. Examination of the heart S1, S2. Examination of the lungs, bilateral breath sounds are heard. Abdomen is soft, nontender. Examination of lower extremities shows trace edema bilaterally. The patient has bruises on his face. He has a superficial laceration on his forehead. 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 LABS SHOW: Sodium of 136, potassium 5.4, BUN 66 serum creatinine 4.6. ProBNP 79,000. Hemoglobin was 10.8 g/dL. ASSESSMENT: 1. End-stage renal disease, on hemodialysis on a Wednesday, Wednesday, Wednesday schedule. Patient will be dialyzed today. 2. Anemia of chronic disease. 3. Mild hyperkalemia. Expect improvement with hemodialysis today. 4. Chronic hypotension maintained on midodrine which we will continue. 5. Possible pneumonia maintained on Zosyn. PLAN: Hemodialysis today. Continue with midodrine. Repeat labs in a.m. MMODL / IJN: [id number] /
[2019-02-08] MEDS: PRAVASTATIN SODIUM 20 MG TAB PO SCH (22:35)
[2019-02-08] MEDS: ALLOPURINOL 100 MG TAB PO SCH (22:35)
[2019-02-08] MEDS: DOXEPIN 10 MG CAP PO SCH (22:36)
[2019-02-08] MEDS: ACETAMINOPHEN TAB 325 MG TAB PO PRN (22:38)
[2019-02-08] MEDS: PIPERACILLIN-TAZOBACTAM 3.375 GM in SODIUM CHLORIDE 0.9% 100 ML IVPB SCH (22:39)
[2019-02-09 07:55] LABS: INR 2.6 (<1.2); Prothrombin Time 25.1 sec (9.0-12.0)
[2019-02-09 08:03] LABS: Basophils # (A) 0.1 k/uL (0-0.2); Basophils % (A) 1 %; Eosinophils # (A) 0.2 k/uL (0-0.7); Eosinophils % (A) 4 %; HCT 33.3 % (39.0-53.0); HGB 10.8 gm/dL (13.0-17.5); Hypochromasia Slight; Lymphocytes # (A) 0.9 k/uL (1.0-4.8); Lymphocytes % (A) 14 %; MCHC 32.5 g/dL (31.0-37.0); MCV 104.7 fL (80.0-100.0); Macrocytosis Moderate; Mean Platelet Volume 6.8; Monocytes # (A) 0.5 k/uL (0-1.0); Monocytes % (A) 8 %; Neutrophils # (A) 4.6 k/uL (1.3-7.7); Neutrophils % (A) 72 %; Platelet Count 121 k/uL (150-450); RBC 3.18 m/uL (4.30-5.90); RDW 14.4 % (11.5-15.5); WBC 6.4 k/uL (3.8-10.6)
[2019-02-09] MEDS: PIPERACILLIN-TAZOBACTAM 3.375 GM in SODIUM CHLORIDE 0.9% 100 ML IVPB SCH ×2 (08:03→19:49)
[2019-02-09] MEDS: MIDODRINE 5 MG TAB PO SCH ×3 (08:07→18:08)
[2019-02-09] MEDS: BRIMONIDINE TARTRATE 0.2% DROPS 5 ML BTL BOTH EYES SCH ×2 (08:07→20:08)
[2019-02-09] MEDS: CARBIDOPA-LEVODOPA 25-100 MG 1 EACH TAB PO SCH ×2 (08:09→20:04)
[2019-02-09] MEDS: FUROSEMIDE 20 MG TAB PO SCH ×2 (08:10→18:08)
[2019-02-09] MEDS: FAMOTIDINE 20 MG TAB PO SCH (08:10)
[2019-02-09] MEDS: TAMSULOSIN 0.4 MG CAP.ER.24H PO SCH ×2 (08:10→20:04)
[2019-02-09] MEDS: NON FORMULARY DRUG (Prorenal + D 1 TAB) PO SCH (08:10)
[2019-02-09] MEDS: GABAPENTIN 100 MG CAP PO SCH ×3 (08:10→21:35)
[2019-02-09] MEDS: TIMOLOL 0.5% OPHTH DROPS 5 ML BTL BOTH EYES SCH (08:11)
[2019-02-09] MEDS: levOCARNitine (WITH SUGAR) 100 MG/ML BOTTLE PO SCH ×3 (08:13→18:08)
[2019-02-09] MEDS: ALBUTEROL NEBULIZED 2.5 MG/3 ML INHALATION SCH ×3 (08:29→19:44)
[2019-02-09 08:56] LABS: Calcium 8.9 mg/dL (8.4-10.2)
--- NOTE | 2019-02-09 09:47 | XR ---
EXAMINATION TYPE: XR chest 1V DATE OF EXAM: 02/09/2019 COMPARISON: 02/07/2019 HISTORY: Shortness of breath. Follow-up pleural effusion. TECHNIQUE: Single frontal view of the chest is obtained. FINDINGS: There is a new trace right pleural effusion. Underlying COPD is redemonstrated. There is s light improvement in the degree of the small left pleural effusion and associated left basilar probab le atelectasis. Degree of pulmonary vascular congestion has also slightly improved, overall moderate. Right basilar linear atelectasis is also seen. Diffuse osseous demineralization. Cardia mediastinal silhouette is again mildly enlarged. IMPRESSION: Slightly improved left basilar pleural effusion and compressive atelectasis. Superimpose d pneumonia is possible. Slightly improved pulmonary vascular congestion and new trace right pleural effusion.
--- NOTE | 2019-02-09 11:56 | P.PN ---
Subjective This is a pleasant 83 years old female with past medical history of atrial fibrillation, COPD, hypertension, hyperlipidemia, end-stage renal disease on hemodialysis. She presents because of syncope and fall hitting her head. As inpatient with family at bedside he was at the restaurant and he choked with a piece of [place] and he managed to spit it out however eventually passed out as a result, he fell and hit his head. Patient has multiple bruises and wounds on his forehead and cheeks, his wounds are closed and bleeding has stopped, also he has another wound in his right hand which is controlled and dressing is in place. He's undergoing chronic dyspnea and chronic cough with clear phlegm. Patient states that he has chronic problem with swallowing for many months. Patient denies chest pain or abdominal pain, no change in bowel habits, no diarrhea. Patient makes little amount of urine but without dysuria On admission she was hypotensive with blood pressure 87/69, she was afebrile and heart rate in 80S, his oxygen saturation is in 99% on room air. Hemoglobin 10.8, WBC and platelets are within normal limits, INR is supratherapeutic with 4.3. Creatinine is 4.1, compared to [facility] baseline of 3.0-4.2. Potassium 5.2, [place] 135[place] [address]. Liver enzymes are not elevated. EKG showed atrial fibrillation at [address]-T changes, chest x-ray: Left lower lobe atelectasis versus pleural effusion and consolidation cannot be excluded. Pulmonary venous congestion. CT of the brain showing atrophic changes without acute intracranial process Cardiology team already is been consulted by emergency room team 02/08/2019 Mónica is awake, however his more sleepy, easily arousable. He denies headache or chest pain or dyspnea. His wounds are covered. Blood pressure is 97/62. Saturating 95% on 2 L. Labs showing stable hemoglobin of 10.8, WBC 6.3K, INR is trending down to 3.8, sodium 136, potassium 5.4, and creatinine 4.6. Urinalysis is not suspicious for infection. Computed tomography scan of the head is ordered stat to reassess possibility of bleeding although he has negative CAT scan yesterday, results are still pending. We'll check swallow evaluation, wound consult is appreciated and fully recommendation. Patient to continue on medial drain, keep holding Coumadin. Physical therapy is pending 02/09/2019 Patient is more awake and alert, he denies chest pain. He denies coughing. He is afebrile and with no leukocytosis however he still a bit short of breath and blood pressure on the low side and repeat chest x-ray showing slight improvement in his possible pneumonia, therefore we will keep the patient in the hospital today and keep his Zosyn for possible aspiration pneumonia. Swallow evaluation is appreciated and they recommended Dysphagia III (chopped) texture diet with thin liquids via cup only would be most appropriate at this time. ( no straws), discussed with staff to change diet. Patient was on a wait-list for outpt dysphagia therapy. His INR today is came back to 2.6. We'll restart Coumadin pharmacy to dose. Patient mental status came back to baseline, no need for neurology evaluation for that. Nephrology R following the case and he status post hemodialysis yesterday. His blood pressure on the low side and swelling will keep the patient in the hospital for monitoring while he was taking midodrine. Review of systems CONSTITUTIONAL: No fever, no malaise, no fatigue. HEENT: No recent visual problems or hearing problems. Denied any sore throat. CARDIOVASCULAR: No orthopnea, PND, no palpitations, no syncope. PULMONARY: no cough, no hemoptysis. GASTROINTESTINAL: No diarrhea, no nausea, no vomiting, no abdominal pain. Normoactive bowel sounds. NEUROLOGICAL: No headaches, no weakness, no numbness. HEMATOLOGICAL: Denies any bleeding or petechiae. GENITOURINARY: Denies any burning micturition, frequency, or urgency. MUSCULOSKELETAL/RHEUMATOLOGICAL: Denies any joint pain, swelling, or any muscle pain. ENDOCRINE: Denies any polyuria or polydipsia. Active Medications Generic Name Dose Route Start Last Admin Trade Name Freq PRN Reason Stop Dose Admin Acetaminophen 650 mg 02/08/19 11:02 02/08/19 22:38 Tylenol Tab PO 650 mg Q6HR PRN Administration Fever and/ or Mild Pain Albuterol Sulfate 2.5 mg 02/07/19 20:00 02/09/19 08:29 Ventolin Nebulized INHALATION 2.5 mg RT-TID SHILA Administration Albuterol Sulfate 2.5 mg 02/07/19 19:59 Ventolin Nebulized INHALATION RT-Q4H PRN Shortness Of Breath Or Wheezing Allopurinol 100 mg 02/07/19 21:00 02/08/19 22:35 Zyloprim PO 100 mg HS SHILA Administration Brimonidine Tartrate 1 drops 02/07/19 21:00 02/09/19 08:07 Alphagan P 0.2% Ophth Soln BOTH EYES 1 drops BID SHILA Administration Carbidopa/Levodopa 1 each 02/07/19 21:00 02/09/19 08:09 Sinemet 25-100 PO 1 each BID SHILA Administration Doxepin HCl 10 mg 02/07/19 21:00 02/08/19 22:36 Sinequan PO 10 mg HS SHILA Administration Famotidine 20 mg 02/09/19 09:00 02/09/19 08:10 Pepcid PO 20 mg DAILY SHILA Administration Furosemide 60 mg 02/08/19 09:00 02/09/19 08:10 Lasix PO 60 mg BID@0900,1600 SHILA Administration Gabapentin 100 mg 02/07/19 22:00 02/09/19 08:10 Neurontin PO 100 mg TID SHILA Administration Sodium Chloride 1,000 mls @ 20 mls/hr 02/07/19 16:45 02/08/19 19:33 Saline 0.9% IV Not Given .Q24H SHILA Piperacillin Sod/Tazobactam 100 mls @ 25 mls/hr 02/08/19 20:00 02/09/19 08:03 Sod 3.375 gm/ Sodium Chloride IVPB 25 mls/hr Q12H SHILA Administration Levocarnitine 330 mg 02/07/19 17:30 02/09/19 11:35 Carnitor Oral Soln PO 330 mg TID-W/MEALS SHILA Administration Midodrine 10 mg 02/07/19 17:30 02/09/19 11:35 Proamatine PO 10 mg AC-TID SHILA Administration Naloxone HCl 0.2 mg 02/07/19 16:40 Narcan IV Q2M PRN Opioid Reversal Non-Formulary Medication 1 tab 02/08/19 09:00 02/09/19 08:10 Prorenal + D PO Not Given DAILY SHILA Pravastatin Sodium 20 mg 02/07/19 21:00 02/08/19 22:35 Pravachol PO 20 mg HS SHILA Administration Ropinirole HCl 5 mg 02/08/19 16:00 02/09/19 08:10 Requip PO 5 mg TID SHILA Administration Tamsulosin HCl 0.4 mg 02/07/19 21:00 02/09/19 08:10 Flomax PO 0.4 mg BID SHILA Administration Timolol Maleate 1 drops 02/08/19 09:00 02/09/19 08:11 Timoptic BOTH EYES 1 drops DAILY SHILA Administration Objective - Vital Signs Vital signs: Vital Signs Temp 97.9 F 02/09/19 05:00 Pulse 75 02/09/19 08:45 Resp 18 02/09/19 05:00 BP 93/56 02/09/19 05:00 Pulse Ox 93 L 02/09/19 05:00 Intake & Output 02/08/19 02/09/19 02/09/19 18:59 06:59 18:59 Intake Total 600 100 Output Total 1800 100 200 Balance -1200 0 -200 Weight 67 kg Intake: Intake, IV Titration 100 Amount Piperacillin-Tazobactam 3 100 .375 gm In Sodium Chloride 0.9% 100 ml @ 25 mls/hr IVPB Q12H SHILA Rx# :[id number] Oral 600 Output: Urine 100 200 Hemodialysis 1800 Other: Voiding Method Urinal Urinal Urinal # Voids 3 0 - Exam -GENERAL: The patient is alert and oriented x3, however patient is more sleepy today -HEENT: Pupils are round and equally reacting to light. EOMI. No scleral icterus. No conjunctival pallor. Normocephalic, atraumatic. No pharyngeal erythema. No thyromegaly. Multiple lipomas on the cheeks with wants on the forehead,x2, closed with no bleeding CARDIOVASCULAR: S1 and S2 present. No murmurs, rubs, or gallops. PULMONARY: Chest is clear to auscultation, no wheezing or crackles. ABDOMEN: Soft, nontender, nondistended, normoactive bowel sounds. No palpable organomegaly. MUSCULOSKELETAL: No joint swelling or deformity. -EXTREMITIES: No cyanosis, clubbing, or pedal edema. Closed Wound on the right hand with a bruise. Dressing is in place NEUROLOGICAL: Gross neurological examination did not reveal any focal deficits. SKIN: No rashes. No petechiae - Labs CBC & Chem 7: 02/09/19 07:32 02/09/19 07:32 Labs: Abnormal Lab Results - Last 24 Hours (Table) 02/09/19 02/09/19 02/09/19 Range/Units 07:32 07:32 07:32 RBC 3.18 L (4.30-5.90) m/uL Hgb 10.8 L (13.0-17.5) gm/dL Hct 33.3 L (39.0-53.0) % MCV 104.7 H (80.0-100.0) fL Plt Count 121 L (150-450) k/uL Lymphocytes # 0.9 L (1.0-4.8) k/uL PT 25.1 H (9.0-12.0) sec INR 2.6 H (<1.2) Carbon Dioxide 31 H (22-30) mmol/L BUN 45 H (9-20) mg/dL Creatinine 4.00 H (0.66-1.25) mg/dL Assessment and Plan Assessment: Syncope , mostly vasovagal syncope associated with choking. Difficulty swallowing. pulmonary congestion, present on admission. Mostly related to aspiration pneumonia Chronic bronchitis with chronic cough and dyspnea. Patient has COPD, does not look in acute exacerbation coagulopathy secondary to Coumadin Fall with head trauma End-stage kidney disease on hemodialysis Chronic atrial fibrillation on Coumadin Hyperlipidemia Plan: This is a pleasant 83 years old male who presents with syncope, coagulopathy and mostly aspiration pneumonia. Continue with Zosyn. Keep monitoring blood pressure, continue with midodrine. 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 Restart Coumadin pharmacy to dose and follow up INR. Ask for physical therapy evaluation. Patient might benefit from ECF placement upon discharge Labs and medication were reviewed.. Continue same treatment. Continue with symptomatic treatment. Resume home medication. Monitor lytes and vitals. DVT and GI prophylaxis. Further recommendations of the clinical course of the patient DVT prophylaxis: Coumadine GI Prophylaxis: Pepcid PT/OT: Recommend LOREN Prognosis is guarded
--- NOTE | 2019-02-09 17:08 | PN ---
PROGRESS NOTE The patient is seen for followup for end-stage renal disease. He was admitted to the hospital with an episode of syncope and fall in. He is maintained on a Wednesday, Wednesday, Wednesday schedule for dialysis. The patient had his treatment yesterday. He is doing fairly well today and wants to be discharged. There are plans to be discharged to a rehab. PHYSICAL EXAMINATION: This morning: Blood pressure was 93/56, heart rate 75 per minute, patient is afebrile. Examination of the heart S1, S2. Examination of the lungs: Good air entry bilaterally. Abdomen is soft, nontender. Examination of lower extremities shows no significant edema. [employer] exam grossly intact. LABS: Revealed sodium 140, potassium 5.0, creatinine 4.0, hemoglobin 10.8 g/dL. ASSESSMENT: 1. End-stage renal disease, on hemodialysis on a Wednesday, Wednesday, Wednesday schedule, for hemodialysis in a.m. We will not remove much fluid as blood pressure remains on the lower side. 2. Possible pneumonia maintained on antibiotics. 3. Chronic hypotension maintained on midodrine I believe we have checked the serum cortisol level earlier. I will reorder it on this admission and continue with the midodrine for now. 4. Chronic kidney disease mineral bone disorder. PLAN: Hemodialysis in a.m. Check random cortisol level. Continue with the midodrine. Agree with rehab post discharge. QUEENIE / DANIEL: [id number] /
[2019-02-09] MEDS ORDERED: WARFARIN 2.5 MG TAB PO ONE (18:00)
[2019-02-09] MEDS: SODIUM CHLORIDE 0.9% 1,000 ML IV SCH (18:09)
[2019-02-09] MEDS: PRAVASTATIN SODIUM 20 MG TAB PO SCH (20:04)
[2019-02-09] MEDS: DOXEPIN 10 MG CAP PO SCH (20:04)
[2019-02-09] MEDS: ALLOPURINOL 100 MG TAB PO SCH (20:04)
[2019-02-09] MEDS: ACETAMINOPHEN TAB 325 MG TAB PO PRN (22:51)
[2019-02-10] MEDS: ALBUTEROL NEBULIZED 2.5 MG/3 ML INHALATION SCH ×3 (07:24→20:59)
[2019-02-10] MEDS: FAMOTIDINE 20 MG TAB PO SCH (08:10)
[2019-02-10] MEDS: MIDODRINE 5 MG TAB PO SCH ×3 (08:11→17:31)
[2019-02-10] MEDS: BRIMONIDINE TARTRATE 0.2% DROPS 5 ML BTL BOTH EYES SCH ×2 (08:11→19:39)
[2019-02-10] MEDS: TIMOLOL 0.5% OPHTH DROPS 5 ML BTL BOTH EYES SCH (08:11)
[2019-02-10 08:56] LABS: Basophils # (A) 0.1 k/uL (0-0.2); Basophils % (A) 1 %; Eosinophils # (A) 0.3 k/uL (0-0.7); Eosinophils % (A) 6 %; HGB 10.1 gm/dL (13.0-17.5); Hypochromasia Slight; Lymphocytes # (A) 0.7 k/uL (1.0-4.8); Lymphocytes % (A) 12 %; MCH 32.7 pg (25.0-35.0); MCHC 29.6 g/dL (31.0-37.0); Macrocytosis Marked; Monocytes # (A) 0.4 k/uL (0-1.0); Monocytes % (A) 6 %; Neutrophils # (A) 4.6 k/uL (1.3-7.7); Neutrophils % (A) 74 %; Platelet Count 115 k/uL (150-450); RBC 3.08 m/uL (4.30-5.90); RDW 14.9 % (11.5-15.5); WBC 6.2 k/uL (3.8-10.6)
[2019-02-10 09:01] LABS: MCV 110.3 fL (80.0-100.0)
[2019-02-10 09:03] LABS: INR 2.2 (<1.2); Prothrombin Time 21.3 sec (9.0-12.0)
[2019-02-10 09:10] LABS: Calcium 8.6 mg/dL (8.4-10.2); Potassium 4.3 mmol/L (3.5-5.1)
[2019-02-10] MEDS: NON FORMULARY DRUG (Prorenal + D 1 TAB) PO SCH (10:38)
[2019-02-10] MEDS: FUROSEMIDE 20 MG TAB PO SCH ×2 (10:38→17:31)
[2019-02-10] MEDS: levOCARNitine (WITH SUGAR) 100 MG/ML BOTTLE PO SCH ×3 (12:18→17:30)
[2019-02-10] MEDS: PIPERACILLIN-TAZOBACTAM 3.375 GM in SODIUM CHLORIDE 0.9% 100 ML IVPB SCH ×2 (12:35→19:40)
[2019-02-10] MEDS: GABAPENTIN 100 MG CAP PO SCH ×3 (12:36→21:17)
[2019-02-10] MEDS: TAMSULOSIN 0.4 MG CAP.ER.24H PO SCH ×2 (12:36→19:37)
[2019-02-10] MEDS: CARBIDOPA-LEVODOPA 25-100 MG 1 EACH TAB PO SCH ×2 (12:36→19:38)
[2019-02-10] MEDS ORDERED: COSYNTROPIN 0.25 MG VIAL IVP ONE (13:50)
--- NOTE | 2019-02-10 15:43 | XR ---
EXAMINATION TYPE: XR wrist complete RT, XR hand complete RT DATE OF EXAM: 02/10/2019 CLINICAL HISTORY: Right hand and wrist pain with decreased range of motion after recent fall. TECHNIQUE: Frontal, lateral and oblique images of the right hand and wrist are obtained. Scaphoid vi ew was also obtained. COMPARISON: None FINDINGS: There is diffuse osseous demineralization seen. Extensive atherosclerosis is noted. Osteoph yte projects into the distal radioulnar joint from the ulna. There is no acute fracture/dislocation e vident in the right hand nor wrist. There is mild joint space narrowing and osseous laceration of the first carpometacarpal joint. Carpal carpal interspaces are maintained. Mild joint space narrowing is seen of the distal interphalangeal joints. No radiopaque foreign body is seen. The overlying soft t issue appears unremarkable. IMPRESSION: There is no acute fracture or dislocation in the right hand nor wrist. Diffuse osseous d emineralization and mild degenerative change in the distribution that is typical for osteoarthritis.
--- NOTE | 2019-02-10 15:56 | PN ---
PROGRESS NOTE Patient is seen for followup for end-stage renal disease. He was admitted to the hospital with syncope and fall. Blood pressure remains on the lower side. Patient is maintained on midodrine. Cortisol was noted to be 14, which although is not too low, but it may be slightly on the lower side. There were plans to discharge to rehab. However, it appears that patient has been refusing to go to inpatient rehab. On examination this morning, the patient is seen on dialysis. He is currently sleeping, not in any acute distress. We are trying for about 1 L. On examination, blood pressure was 92/55, heart rate 78 per minute. He is afebrile. EXAMINATION OF THE HEART: S1 and S2. EXAMINATION OF LUNGS: Good air entry bilaterally. No evidence of edema in bilateral lower extremities. ABDOMEN: Soft, non-tender. Labs show sodium of 139, potassium 4.3, BUN 48, creatinine 4.3. ASSESSMENT: 1. End-stage renal disease, on hemodialysis on a Wednesday, Wednesday, Wednesday schedule. 2. Chronic hypotension, maintained on midodrine. Serum cortisol was 14. We should do an ACTH stimulation test while patient is in the hospital. Rule out adrenal insufficiency. 3. Hyperkalemia, improved post dialysis. 4. Anemia of chronic disease. 5. Chronic kidney disease mineral bone disorder. PLAN: ACTH stimulation test. Next hemodialysis will be on Wednesday. MMODL / IJN: [id number] /
--- NOTE | 2019-02-10 17:14 | P.PN ---
Subjective Progress Note Date: 02/10/19 Principal diagnosis: Choking/aspiration/ aspiration pneumonia end-stage renal disease/hemodialysis Hypotension; possible adrenal insufficiency 83 years old female with past medical history of atrial fibrillation, COPD, hypertension, hyperlipidemia, end-stage renal disease on hemodialysis. She presents because of syncope and fall hitting her head. As inpatient with family at bedside he was at the restaurant and he choked with a piece of [place] and he managed to spit it out however eventually passed out as a result, he fell and hit his head. Patient has multiple bruises and wounds on his forehead and cheeks, his wounds are closed and bleeding has stopped, also he has another wound in his right hand which is controlled and dressing is in place. He's undergoing chronic dyspnea and chronic cough with clear phlegm. Patient states that he has chronic problem with swallowing for many months. Patient denies chest pain or abdominal pain, no change in bowel habits, no di arrhea. Patient makes little amount of urine but without dysuria On admission she was hypotensive with blood pressure 87/69, she was afebrile and heart rate in 80S, his oxygen saturation is in 99% on room air. Hemoglobin 10.8, WBC and platelets are within normal limits, INR is supratherapeutic with 4.3. Creatinine is 4.1, compared to he baseline of 3.0-4.2. Potassium 5.2, [place] 135[place] [address]. Liver enzymes are not elevated. EKG showed atrial fibrillation at [address]-T changes, chest x-ray: Left lower lobe atelectasis versus pleural effusion and consolidation cannot be excluded. Pulmonary venous congestion. CT of the brain showing atrophic changes without acute intracranial process Cardiology team already is been consulted by emergency room team 02/10/2019 Patient is seen and evaluated in room with family members at bedside; patient remains hypotensive and ACTH stimulation test as ordered by nephrology Lab review shows a CBC with white blood count of 6.2, hemoglobin 10.1 and platelet count of 1:15; INR of 2.2; sodium of 139, potassium 4.3 with B UN of 48/creatinine 4.30 Patient has been evaluated by physical therapy and has recommended skilled rehab however patient and family are both refusing and patient is requesting discharge home once stable Objective - Vital Signs Vital signs: Vital Signs Temp 97.7 F 02/10/19 13:31 Pulse 81 02/10/19 13:31 Resp 18 02/10/19 13:31 BP 94/57 02/10/19 13:31 Pulse Ox 99 02/10/19 12:13 Intake & Output 02/09/19 02/10/19 02/10/19 18:59 06:59 18:59 Intake Total 1410 Output Total 200 1700 Balance -200 1410 -1700 Intake: Intake, IV Titration 100 Amount Piperacillin-Tazobactam 3 100 .375 gm In Sodium Chloride 0.9% 100 ml @ 25 mls/hr IVPB Q12H [facility] Rx# :[id number] Oral 1310 Output: Urine 200 Hemodialysis 1700 Other: Voiding Method Urinal Urinal # Voids 3 2 3 # Bowel Movements 1 1 1 - Exam -GENERAL: The patient is alert and oriented x3, however patient is more sleepy today -HEENT: Pupils are round and equally reacting to light. EOMI. No scleral icterus. No conjunctival pallor. Normocephalic, atraumatic. No pharyngeal erythema. No thyromegaly. Multiple lipomas on the cheeks with wants on the forehead,x2, closed with no bleeding CARDIOVASCULAR: S1 and S2 present. No murmurs, rubs, or gallops. PULMONARY: Chest is clear to auscultation, no wheezing or crackles. ABDOMEN: Soft, nontender, nondistended, normoactive bowel sounds. No palpable organomegaly. MUSCULOSKELETAL: No joint swelling or deformity. -EXTREMITIES: No cyanosis, clubbing, or pedal edema. Closed Wound on the right hand with a bruise. Dressing is in place NEUROLOGICAL: Gross neurological examination did not reveal any focal deficits. SKIN: No rashes. No petechiae - Labs CBC & Chem 7: 02/10/19 08:14 02/10/19 08:14 Labs: Abnormal Lab Results - Last 24 Hours (Table) 02/10/19 02/10/19 02/10/19 Range/Units 08:14 08:14 08:14 RBC 3.08 L (4.30-5.90) m/uL Hgb 10.1 L (13.0-17.5) gm/dL Hct 34.0 L (39.0-53.0) % MCV 110.3 H D (80.0-100.0) fL MCHC 29.6 L (31.0-37.0) g/dL Plt Count 115 L (150-450) k/uL Lymphocytes # 0.7 L (1.0-4.8) k/uL Macrocytosis Marked A PT 21.3 H (9.0-12.0) sec INR 2.2 H (<1.2) BUN 48 H (9-20) mg/dL Creatinine 4.30 H (0.66-1.25) mg/dL Assessment and Plan Assessment: Syncope , mostly vasovagal syncope associated with choking. Difficulty swallowing. pulmonary congestion, present on admission. Mostly related to aspiration pn [place] Chronic bronchitis with chronic cough and dyspnea. Patient has COPD, does not look in acute exacerbation coagulopathy secondary to Coumadin Fall with head trauma End-stage kidney disease on hemodialysis Chronic atrial fibrillation on Coumadin Hyperlipidemia Plan: This is a pleasant 83 years old male who presents with syncope, coagulopathy and mostly aspiration pneumonia. Continue with Zosyn. Keep monitoring blood pressure, continue with midodrine. 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 Restart Coumadin pharmacy to dose and follow up INR. Ask for physical therapy evaluation. Patient might benefit from ECF placement upon discharge Labs and medication were reviewed.. Continue same treatment. Continue with symptomatic treatment. Resume home medication. Monitor lytes and vitals. DVT and GI prophylaxis. Further recommendations of the clinical course of the patient DVT prophylaxis: Coumadine GI Prophylaxis: Pepcid PT/OT: Recommend LOREN Prognosis is guarded
[2019-02-10] MEDS ORDERED: WARFARIN 2 MG TAB PO ONE (18:00)
[2019-02-10] MEDS: ALLOPURINOL 100 MG TAB PO SCH (19:37)
[2019-02-10] MEDS: PRAVASTATIN SODIUM 20 MG TAB PO SCH (19:37)
[2019-02-10] MEDS: DOXEPIN 10 MG CAP PO SCH (19:37)
[2019-02-10] MEDS: SODIUM CHLORIDE 0.9% 1,000 ML IV SCH (19:41)
[2019-02-10] MEDS: ACETAMINOPHEN TAB 325 MG TAB PO PRN (21:17)
[2019-02-11 08:07] LABS: Basophils % (A) 1 %; Eosinophils # (A) 0.2 k/uL (0-0.7); Eosinophils % (A) 3 %; HGB 9.6 gm/dL (13.0-17.5); Hypochromasia Marked; Lymphocytes # (A) 0.7 k/uL (1.0-4.8); Lymphocytes % (A) 11 %; MCH 33.7 pg (25.0-35.0); MCV 112.1 fL (80.0-100.0); Macrocytosis Marked; Mean Platelet Volume 8.4; Monocytes # (A) 0.4 k/uL (0-1.0); Monocytes % (A) 7 %; Neutrophils # (A) 4.7 k/uL (1.3-7.7); Neutrophils % (A) 76 %; RBC 2.85 m/uL (4.30-5.90); RDW 14.9 % (11.5-15.5); WBC 6.2 k/uL (3.8-10.6)
[2019-02-11 08:16] LABS: Prothrombin Time 19.8 sec (9.0-12.0)
[2019-02-11] MEDS: MIDODRINE 5 MG TAB PO SCH ×3 (08:25→16:35)
[2019-02-11] MEDS: levOCARNitine (WITH SUGAR) 100 MG/ML BOTTLE PO SCH ×3 (08:25→16:35)
[2019-02-11] MEDS: GABAPENTIN 100 MG CAP PO SCH ×3 (08:26→21:53)
[2019-02-11] MEDS: FAMOTIDINE 20 MG TAB PO SCH (08:26)
[2019-02-11] MEDS: FUROSEMIDE 20 MG TAB PO SCH ×2 (08:26→16:36)
[2019-02-11] MEDS: TIMOLOL 0.5% OPHTH DROPS 5 ML BTL BOTH EYES SCH (08:26)
[2019-02-11] MEDS: CARBIDOPA-LEVODOPA 25-100 MG 1 EACH TAB PO SCH ×2 (08:26→21:52)
[2019-02-11] MEDS: TAMSULOSIN 0.4 MG CAP.ER.24H PO SCH ×2 (08:26→21:53)
[2019-02-11] MEDS: BRIMONIDINE TARTRATE 0.2% DROPS 5 ML BTL BOTH EYES SCH ×2 (08:26→21:56)
[2019-02-11] MEDS: NON FORMULARY DRUG (Prorenal + D 1 TAB) PO SCH (08:29)
[2019-02-11] MEDS: PIPERACILLIN-TAZOBACTAM 3.375 GM in SODIUM CHLORIDE 0.9% 100 ML IVPB SCH ×2 (08:29→20:00)
[2019-02-11 08:44] LABS: Calcium 8.3 mg/dL (8.4-10.2); Potassium 4.4 mmol/L (3.5-5.1)
[2019-02-11 08:57] LABS: Poikilocytosis (M) Present
[2019-02-11 08:58] LABS: Platelet Count 99 k/uL (150-450)
[2019-02-11] MEDS: ALBUTEROL NEBULIZED 2.5 MG/3 ML INHALATION SCH ×3 (09:20→19:39)
--- NOTE | 2019-02-11 13:53 | PN ---
PROGRESS NOTE The patient is seen for followup for end-stage renal disease. He is currently resting comfortably. Patient was dialyzed yesterday. Blood pressure remains on the lower side, an ACTH stimulation test was performed yesterday. The serum cortisol level did increase at 30 minutes and 60 minutes; however, it is slightly on the lower side. PHYSICAL EXAMINATION: On examination today, blood pressure is 89/48, heart rate 75 per minute. Patient is afebrile. EXAMINATION OF THE HEART: S1, S2. EXAMINATION OF THE LUNGS: Bilateral breath sounds are heard. Abdomen is soft, nontender. Examination of lower extremities shows no significant edema. LABS: Labs show hemoglobin 9.6, sodium 140, potassium 4.4. Cortisol level increased from 17 to 27 at 30 minutes and 60 minutes. ASSESSMENT: 1. End-stage renal disease, on hemodialysis on a Wednesday, Wednesday, Wednesday schedule. 2. Syncope most likely associated with hypotension. ACTH stimulation test is borderline. I will add cortisol. Continue with the midodrine for now. 3. Anemia of chronic disease. 4. Dyslipidemia. 5. Chronic atrial fibrillation, maintained on Coumadin. PLAN: Add Cortef. Continue with midodrine. Next hemodialysis on Wednesday. MMODL / IJN: [id number] /
--- NOTE | 2019-02-11 15:54 | P.PN ---
Subjective Progress Note Date: 02/11/19 Principal diagnosis: Choking/aspiration/ aspiration pneumonia end-stage renal disease/hemodialysis Hypotension; possible adrenal insufficiency 83 years old female with past medical history of atrial fibrillation, COPD, hypertension, hyperlipidemia, end-stage renal disease on hemodialysis. She presents because of syncope and fall hitting her head. As inpatient with family at bedside he was at the restaurant and he choked with a piece of [place] and he managed to spit it out however eventually passed out as a result, he fell and hit his head. Patient has multiple bruises and wounds on his forehead and cheeks, his wounds are closed and bleeding has stopped, also he has another wound in his right hand which is controlled and dressing is in place. He's undergoing chronic dyspnea and chronic cough with clear phlegm. Patient states that he has chronic problem with swallowing for many months. Patient denies chest pain or abdominal pain, no change in bowel habits, no di arrhea. Patient makes little amount of urine but without dysuria On admission she was hypotensive with blood pressure 87/69, she was afebrile and heart rate in 80S, his oxygen saturation is in 99% on room air. Hemoglobin 10.8, WBC and platelets are within normal limits, INR is supratherapeutic with 4.3. Creatinine is 4.1, compared to he baseline of 3.0-4.2. Potassium 5.2, [place] 135[place] [address]. Liver enzymes are not elevated. EKG showed atrial fibrillation at [address]-T changes, chest x-ray: Left lower lobe atelectasis versus pleural effusion and consolidation cannot be excluded. Pulmonary venous congestion. CT of the brain showing atrophic changes without acute intracranial process Cardiology team already is been consulted by emergency room team 02/10/2019 Patient is seen and evaluated in room with family members at bedside; patient remains hypotensive and ACTH stimulation test as ordered by nephrology Lab review shows a CBC with white blood count of 6.2, hemoglobin 10.1 and platelet count of 1:15; INR of 2.2; sodium of 139, potassium 4.3 with B UN of 48/creatinine 4.30 Patient has been evaluated by physical therapy and has recommended skilled rehab however patient and family are both refusing and patient is requesting discharge home once stable 02/11/2019 Patient is seen and evaluated at bedside; patient denies any specific complaints at this time; per nursing staff, patient's son who is an RN, complaint that patient is wheezing and he thinks there is marked fluid retention and is requ esting short duration dialysis; patient does not seem to be in any distress; nephrology has been paged Patient's vital signs are reviewed and blood pressure remains low; ACTH stimulation test is borderline abnormal and patient has been started on Cortef and midodrine Patient remains on slow IV fluids in form of normal saline at 10 mL an hour; we will continue to monitor electrolytes and renal function Objective - Vital Signs Vital signs: Vital Signs Temp 98 F 02/11/19 12:04 Pulse 82 02/11/19 13:35 Resp 17 02/11/19 12:04 BP 89/48 02/11/19 12:04 Pulse Ox 98 02/11/19 12:04 Intake & Output 02/10/19 02/11/19 02/11/19 18:59 06:59 18:59 Intake Total 260 Output Total 1700 Balance -1700 260 Intake: Intake, IV Titration 260 Amount Piperacillin-Tazobactam 3 100 .375 gm In Sodium Chloride 0.9% 100 ml @ 25 mls/hr IVPB Q12H [facility] Rx# :[id number] Sodium Chloride 0.9% 1, 160 000 ml @ 20 mls/hr IV . Q24H [facility] Rx#:[id number] Output: Hemodialysis 1700 Other: Voiding Method Urinal Toilet Urinal # Voids 3 2 2 # Bowel Movements 1 1 - Exam -GENERAL: The patient is alert and oriented x3, however patient is more sleepy today -HEENT: Pupils are round and equally reacting to light. EOMI. No scleral icterus. No conjunctival pallor. Normocephalic, atraumatic. No pharyngeal erythema. No thyromegaly. Multiple lipomas on the cheeks with wants on the forehead,x2, closed with no bleeding CARDIOVASCULAR: S1 and S2 present. No murmurs, rubs, or gallops. PULMONARY: Chest is clear to auscultation, no wheezing or crackles. ABDOMEN: Soft, nontender, nondistended, normoactive bowel sounds. No palpable organomegaly. MUSCULOSKELETAL: No joint swelling or deformity. -EXTREMITIES: No cyanosis, clubbing, or pedal edema. Closed Wound on the right hand with a bruise. Dressing is in place NEUROLOGICAL: Gross neurological examination did not reveal any focal deficits. SKIN: No rashes. No petechiae - Labs CBC & Chem 7: 02/11/19 07:37 02/11/19 07:37 Labs: Abnormal Lab Results - Last 24 Hours (Table) 02/10/19 02/11/19 02/11/19 Range/Units 14:17 07:37 07:37 RBC 2.85 L (4.30-5.90) m/uL Hgb 9.6 L (13.0-17.5) gm/dL Hct 32.0 L (39.0-53.0) % MCV 112.1 H (80.0-100.0) fL MCHC 30.0 L (31.0-37.0) g/dL Plt Count 99 L (150-450) k/uL Lymphocytes # 0.7 L (1.0-4.8) k/uL Macrocytosis Marked A PT 19.8 H (9.0-12.0) sec INR 2.0 H (<1.2) BUN (9-20) mg/dL Creatinine (0.66-1.25) mg/dL Calcium (8.4-10.2) mg/dL ACTH 47.20 H (0.00-45.99) pg/mL 02/11/19 Range/Units 07:37 RBC (4.30-5.90) m/uL Hgb (13.0-17.5) gm/dL Hct (39.0-53.0) % MCV (80.0-100.0) fL MCHC (31.0-37.0) g/dL Plt Count (150-450) k/uL Lymphocytes # (1.0-4.8) k/uL Macrocytosis PT (9.0-12.0) sec INR (<1.2) BUN 41 H (9-20) mg/dL Creatinine 4.23 H (0.66-1.25) mg/dL Calcium 8.3 L (8.4-10.2) mg/dL ACTH (0.00-45.99) pg/mL Assessment and Plan Assessment: Syncope , mostly vasovagal syncope associated with choking. Difficulty swallowing. pulmonary congestion, present on admission. Mostly related to aspiration pneumonia Chronic bronchitis with chronic cough and dyspnea. Patient has COPD, does not look in acute exacerbation coagulopathy secondary to Coumadin Fall with head trauma End-stage kidney disease on hemodialysis Chronic atrial fibrillation on Coumadin Hyperlipidemia Plan: This is a pleasant 83 years old male who presents with syncope, coagulopathy and mostly aspiration pneumonia. Continue with Zosyn. Keep monitoring blood pressure, continue with midodrine. 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 Restart Coumadin pharmacy to dose and follow up INR. Ask for physical therapy evaluation. Patient might benefit from ECF placement upon discharge Labs and medication were reviewed.. Continue same treatment. Continue with symptomatic treatment. Resume home medication. Monitor lytes and vitals. DVT and GI prophylaxis. Further recommendations of the clinical course of the patient DVT prophylaxis: Coumadine GI Prophylaxis: Pepcid PT/OT: Recommend LOREN Prognosis is guarded Time with Patient: Greater than 30
[2019-02-11] MEDS: HYDROCORTISONE 10 MG TAB PO SCH (16:35)
[2019-02-11] MEDS: SODIUM CHLORIDE 0.9% 1,000 ML IV SCH (16:36)
--- NOTE | 2019-02-11 16:44 | XR ---
EXAMINATION TYPE: XR chest 1V portable DATE OF EXAM: 02/11/2019 COMPARISON: 02/09/2019 HISTORY: Congestion TECHNIQUE: Single frontal view of the chest is obtained. FINDINGS: Heart is enlarged. There is coarsening of the lung markings. There is mild blunting of the costophrenic angles. There is coalescent density left lower lobe. There is no heart failure. Bony th orax appears intact. IMPRESSION: No gross heart failure. Pulmonary fibrosis. Increasing airspace consolidation in the lef t lower lobe compared to last exam.
[2019-02-11] MEDS ORDERED: WARFARIN 5 MG TAB PO ONE (18:00)
[2019-02-11] MEDS: ALLOPURINOL 100 MG TAB PO SCH (21:52)
[2019-02-11] MEDS: PRAVASTATIN SODIUM 20 MG TAB PO SCH (21:52)
[2019-02-11] MEDS: ACETAMINOPHEN TAB 325 MG TAB PO PRN (21:52)
[2019-02-11] MEDS: DOXEPIN 10 MG CAP PO SCH (21:53)
[2019-02-12 07:10] LABS: Basophils % (A) 1 %; Eosinophils # (A) 0.2 k/uL (0-0.7); Eosinophils % (A) 3 %; HCT 34.9 % (39.0-53.0); HGB 10.4 gm/dL (13.0-17.5); Hypochromasia Marked; Lymphocytes # (A) 0.8 k/uL (1.0-4.8); Lymphocytes % (A) 14 %; MCH 34.2 pg (25.0-35.0); MCV 114.2 fL (80.0-100.0); Macrocytosis Marked; Mean Platelet Volume 8.8; Monocytes # (A) 0.4 k/uL (0-1.0); Monocytes % (A) 7 %; Neutrophils % (A) 73 %; Platelet Count 115 k/uL (150-450); RBC 3.05 m/uL (4.30-5.90); RDW 14.8 % (11.5-15.5); WBC 5.5 k/uL (3.8-10.6)
[2019-02-12 07:26] LABS: Calcium 8.4 mg/dL (8.4-10.2); Potassium 5.1 mmol/L (3.5-5.1)
[2019-02-12 07:29] LABS: INR 2.3 (<1.2)
[2019-02-12] MEDS: ALBUTEROL NEBULIZED 2.5 MG/3 ML INHALATION SCH ×3 (08:01→19:04)
[2019-02-12 08:07] LABS: Poikilocytosis (M) Present
[2019-02-12] MEDS: NON FORMULARY DRUG (Prorenal + D 1 TAB) PO SCH (08:14)
[2019-02-12] MEDS: PIPERACILLIN-TAZOBACTAM 3.375 GM in SODIUM CHLORIDE 0.9% 100 ML IVPB SCH ×2 (08:29→20:49)
[2019-02-12] MEDS: levOCARNitine (WITH SUGAR) 100 MG/ML BOTTLE PO SCH ×3 (08:29→17:25)
[2019-02-12] MEDS: HYDROCORTISONE 10 MG TAB PO SCH ×2 (08:30→22:53)
[2019-02-12] MEDS: GABAPENTIN 100 MG CAP PO SCH ×3 (08:30→22:54)
[2019-02-12] MEDS: FUROSEMIDE 20 MG TAB PO SCH ×2 (08:30→17:25)
[2019-02-12] MEDS: BRIMONIDINE TARTRATE 0.2% DROPS 5 ML BTL BOTH EYES SCH ×2 (08:30→22:53)
[2019-02-12] MEDS: MIDODRINE 5 MG TAB PO SCH ×3 (08:30→17:25)
[2019-02-12] MEDS: TAMSULOSIN 0.4 MG CAP.ER.24H PO SCH ×2 (08:30→22:54)
[2019-02-12] MEDS: CARBIDOPA-LEVODOPA 25-100 MG 1 EACH TAB PO SCH ×2 (08:30→22:53)
[2019-02-12] MEDS: FAMOTIDINE 20 MG TAB PO SCH (08:30)
[2019-02-12] MEDS: TIMOLOL 0.5% OPHTH DROPS 5 ML BTL BOTH EYES SCH (08:30)
[2019-02-12] MEDS ORDERED: guaiFENesin 600 MG TABLET.ER PO PRN (08:42)
--- NOTE | 2019-02-12 12:40 | P.PN ---
Subjective Progress Note Date: 02/12/19 Principal diagnosis: Choking/aspiration/ aspiration pneumonia end-stage renal disease/hemodialysis Hypotension; possible adrenal insufficiency 83 years old female with past medical history of atrial fibrillation, COPD, hypertension, hyperlipidemia, end-stage renal disease on hemodialysis. She presents because of syncope and fall hitting her head. As inpatient with family at bedside he was at the restaurant and he choked with a piece of [place] and he managed to spit it out however eventually passed out as a result, he fell and hit his head. Patient has multiple bruises and wounds on his forehead and cheeks, his wounds are closed and bleeding has stopped, also he has another wound in his right hand which is controlled and dressing is in place. He's undergoing chronic dyspnea and chronic cough with clear phlegm. Patient states that he has chronic problem with swallowing for many months. Patient denies chest pain or abdominal pain, no change in bowel habits, no di arrhea. Patient makes little amount of urine but without dysuria On admission she was hypotensive with blood pressure 87/69, she was afebrile and heart rate in 80S, his oxygen saturation is in 99% on room air. Hemoglobin 10.8, WBC and platelets are within normal limits, INR is supratherapeutic with 4.3. Creatinine is 4.1, compared to he baseline of 3.0-4.2. Potassium 5.2, [place] [address]. Liver enzymes are not elevated. EKG showed atrial fibrillation at [address]-T changes, chest x-ray: Left lower lobe atelectasis versus pleural effusion and consolidation cannot be excluded. Pulmonary venous congestion. CT of the brain showing atrophic changes without acute intracranial process Cardiology team already is been consulted by emergency room team 02/10/2019 Patient is seen and evaluated in room with family members at bedside; patient remains hypotensive and ACTH stimulation test as ordered by nephrology Lab review shows a CBC with white blood count of 6.2, hemoglobin 10.1 and platelet count of 1:15; INR of 2.2; sodium of 139, potassium 4.3 with B UN of 48/creatinine 4.30 Patient has been evaluated by physical therapy and has recommended skilled rehab however patient and family are both refusing and patient is requesting discharge home once stable 02/11/2019 Patient is seen and evaluated at bedside; patient denies any specific complaints at this time; per nursing staff, patient's son who is an RN, complaint that patient is wheezing and he thinks there is marked fluid retention and is requ esting short duration dialysis; patient does not seem to be in any distress; nephrology has been paged Patient's vital signs are reviewed and blood pressure remains low; ACTH stimulation test is borderline abnormal and patient has been started on Cortef and midodrine Patient remains on slow IV fluids in form of normal saline at 10 mL an hour; we will continue to monitor electrolytes and renal function 02/12/2019 Patient is seen and evaluated in room at bedside; patient denies any specific complaints Vital signs show temperature of 97.6, pulse 81, respiration 18 and blood pressure of 90/55 with SpO2 of 98% on 2 L; patient continues to have bilateral rhonchi and worsening of diffuse bilateral expiratory wheezing; chest x-ray is done which shows no CHF with question of consolidation; concern remains as to worsening chest congestion possibly secondary to silent aspiration; we will plan on keeping patient nothing by mouth and have PREPRESS MANAGER evaluation; patient currently remains on IV Zosyn; we will schedule nebulizer treatments every 4-6 hours and consult pulmonary for further recommendations Objective - Vital Signs Vital signs: Vital Signs Temp 97.5 F L 02/12/19 05:00 Pulse 81 02/12/19 08:16 Resp 18 02/12/19 05:00 BP 90/56 02/12/19 05:00 Pulse Ox 96 02/12/19 05:00 Intake & Output 02/11/19 02/12/19 02/12/19 18:59 06:59 18:59 Intake Total 260 100 Balance 260 100 Intake: Intake, IV Titration 260 100 Amount Piperacillin-Tazobactam 3 100 100 .375 gm In Sodium Chloride 0.9% 100 ml @ 25 mls/hr IVPB Q12H [facility] Rx# :[id number] Sodium Chloride 0.9% 1, 160 000 ml @ 20 mls/hr IV . Q24H [facility] Rx#:[id number] Other: Voiding Method Toilet Toilet Toilet Urinal Urinal Urinal # Voids 2 1 - Exam -GENERAL: The patient is alert and oriented x3, however patient is more sleepy today -HEENT: Pupils are round and equally reacting to light. EOMI. No scleral icterus. No conjunctival pallor. Normocephalic, atraumatic. No pharyngeal erythema. No thyromegaly. Multiple lipomas on the cheeks with wants on the forehead,x2, closed with no bleeding CARDIOVASCULAR: S1 and S2 present. No murmurs, rubs, or gallops. PULMONARY: Chest is clear to auscultation, no wheezing or crackles. ABDOMEN: Soft, nontender, nondistended, normoactive bowel sounds. No palpable organomegaly. MUSCULOSKELETAL: No joint swelling or deformity. -EXTREMITIES: No cyanosis, clubbing, or pedal edema. Closed Wound on the right hand with a bruise. Dressing is in place NEUROLOGICAL: Gross neurological examination did not reveal any focal deficits. SKIN: No rashes. No petechiae - Labs CBC & Chem 7: 02/12/19 06:38 02/12/19 06:38 Labs: Abnormal Lab Results - Last 24 Hours (Table) 02/12/19 02/12/19 02/12/19 Range/Units 06:38 06:38 06:38 RBC 3.05 L (4.30-5.90) m/uL Hgb 10.4 L (13.0-17.5) gm/dL Hct 34.9 L (39.0-53.0) % MCV 114.2 H (80.0-100.0) fL MCHC 30.0 L (31.0-37.0) g/dL Plt Count 115 L (150-450) k/uL Lymphocytes # 0.8 L (1.0-4.8) k/uL Macrocytosis Marked A PT 22.0 H (9.0-12.0) sec INR 2.3 H (<1.2) BUN 53 H (9-20) mg/dL Creatinine 5.27 H (0.66-1.25) mg/dL Assessment and Plan Assessment: Syncope , mostly vasovagal syncope associated with choking. Difficulty swallowing. pulmonary congestion, present on admission. Mostly related to aspiration pneumonia Chronic bronchitis with chronic cough and dyspnea. Patient has COPD, does not look in acute exacerbation coagulopathy secondary to Coumadin Fall with head trauma End-stage kidney disease on hemodialysis Chronic atrial fibrillation on Coumadin Hyperlipidemia Plan: This is a pleasant 83 years old male who presents with syncope, coagulopathy and mostly aspiration pneumonia. Continue with Zosyn. Keep monitoring blood pressure, continue with midodrine. 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 Restart Coumadin pharmacy to dose and follow up INR. Ask for physical therapy evaluation. Patient might benefit from ECF placement upon discharge Labs and medication were reviewed.. Continue same treatment. Continue with symptomatic treatment. Resume home medication. Monitor lytes and vitals. DVT and GI prophylaxis. Further recommendations of the clinical course of the patient DVT prophylaxis: Coumadine GI Prophylaxis: Pepcid PT/OT: Recommend LOREN Prognosis is guarded Time with Patient: Greater than 30
--- NOTE | 2019-02-12 13:13 | PN ---
PROGRESS NOTE Patient is seen for followup for end-stage renal disease. This morning he is sitting up in a bedside chair. He is comfortable. He is complaining of increased cough. He thinks he has some phlegm. PHYSICAL EXAMINATION: On examination, blood pressure was 90/55, heart rate 81 per minute, patient is afebrile. Examination of the heart S1, S2. Examination of the lungs, bilateral breath sounds are heard. Abdomen is soft. Examination of the lower extremities shows no significant edema. INFORMATICS PHYSICIAN exam grossly intact. LABS: Sodium 138, potassium 5.1, creatinine 5.27, hemoglobin 10.4. ASSESSMENT: 1. End-stage renal disease, on hemodialysis on a Wednesday, Wednesday, Wednesday schedule. We will arrange for hemodialysis in the a.m. 2. Hypotension, maintained on midodrine. The patient also has a component of adrenal insufficiency and he has been started on Cortef. Blood pressures still remain on the lower side. 3. Status post fall, most likely related to the hypotension. PLAN: Hemodialysis in a.m. Continue with the midodrine and Cortef. MMODL / IJN: [id number] /
[2019-02-12] MEDS: SODIUM CHLORIDE 0.9% 1,000 ML IV SCH (17:24)
[2019-02-12] MEDS ORDERED: WARFARIN 2 MG TAB PO ONE (18:00)
[2019-02-12] MEDS: ALLOPURINOL 100 MG TAB PO SCH (22:53)
[2019-02-12] MEDS: DOXEPIN 10 MG CAP PO SCH (22:53)
[2019-02-12] MEDS: PRAVASTATIN SODIUM 20 MG TAB PO SCH (22:54)
--- NOTE | 2019-02-13 07:52 | P.PN ---
Subjective This is a pleasant 83 years old female with past medical history of atrial fibrillation, COPD, hypertension, hyperlipidemia, end-stage renal disease on hemodialysis. She presents because of syncope and fall hitting her head. As inpatient with family at bedside he was at the restaurant and he choked with a piece of [place] and he managed to spit it out however eventually passed out as a result, he fell and hit his head. Patient has multiple bruises and wounds on his forehead and cheeks, his wounds are closed and bleeding has stopped, also he has another wound in his right hand which is controlled and dressing is in place. He's undergoing chronic dyspnea and chronic cough with clear phlegm. Patient states that he has chronic problem with swallowing for many months. Patient denies chest pain or abdominal pain, no change in bowel habits, no diarrhea. Patient makes little amount of urine but without dysuria On admission she was hypotensive with blood pressure 87/69, she was afebrile and heart rate in 80S, his oxygen saturation is in 99% on room air. Hemoglobin 10.8, WBC and platelets are within normal limits, INR is supratherapeutic with 4.3. Creatinine is 4.1, compared to [facility] baseline of 3.0-4.2. Potassium 5.2, sodium 135[place] [address]. Liver enzymes are not elevated. EKG showed atrial fibrillation at [address]-T changes, chest x-ray: Left lower lobe atelectasis versus pleural effusion and consolidation cannot be excluded. Pulmonary venous congestion. CT of the brain showing atrophic changes without acute intracranial process Cardiology team already is been consulted by emergency room team 02/08/2019 Mónica is awake, however his more sleepy, easily arousable. He denies headache or chest pain or dyspnea. His wounds are covered. Blood pressure is 97/62. Saturating 95% on 2 L. Labs showing stable hemoglobin of 10.8, WBC 6.3K, INR is trending down to 3.8, sodium 136, potassium 5.4, and creatinine 4.6. Urinalysis is not suspicious for infection. Computed tomography scan of the head is ordered stat to reassess possibility of bleeding although he has negative CAT scan yesterday, results are still pending. We'll check swallow evaluation, wound consult is appreciated and fully recommendation. Patient to continue on medial drain, keep holding Coumadin. Physical therapy is pending 02/09/2019 Patient is more awake and alert, he denies chest pain. He denies coughing. He is afebrile and with no leukocytosis however he still a bit short of breath and blood pressure on the low side and repeat chest x-ray showing slight improvement in his possible pneumonia, therefore we will keep the patient in the hospital today and keep his Zosyn for possible aspiration pneumonia. Swallow evaluation is appreciated and they recommended Dysphagia III (chopped) texture diet with thin liquids via cup only would be most appropriate at this time. ( no straws), discussed with staff to change diet. Patient was on a wait-list for outpt dysphagia therapy. His INR today is came back to 2.6. We'll restart Coumadin pharmacy to dose. Patient mental status came back to baseline, no need for neurology evaluation for that. Nephrology R following the case and he status post hemodialysis yesterday. His blood pressure on the low side and swelling will keep the patient in the hospital for monitoring while he was taking midodrine. 02/13/2019 Patient lying in bed comfortable. He denies chest pain or dyspnea. His breathing quietly. Vital signs stable, blood pressure is persistently low normal side and currently 95/68, while he's on medodrain and cortisone replacement therapy. Labs show a stable leukocytosis, stable hemoglobin, platelets improvement to 115K, INR is stable at 2.3 while he is on Coumadin. Creatinine 5.2. Chest x-ray from 2 days ago, showing increased opacif ication/consolidation in the left lower lung lobe. His x-ray: Repeat chest x-ray from today is still pending Patient currently is nothing by mouth pending for reevaluation by swallow team, although last time they recommended recommended Dysphagia III (chopped) texture diet with thin liquids via cup only would be most appropriate at this time. ( no straws), Patient might benefit from ECF for rehab upon discharge. Objective - Vital Signs Vital signs: Vital Signs Temp 97.5 F L 02/13/19 05:00 Pulse 78 02/13/19 05:00 Resp 16 02/13/19 05:00 BP 95/68 02/13/19 05:00 Pulse Ox 100 02/13/19 05:00 Intake & Output 02/12/19 02/13/19 02/13/19 18:59 06:59 18:59 Intake Total 100 340 Output Total 200 Balance -100 340 Weight 67 kg Intake: Intake, IV Titration 100 340 Amount Piperacillin-Tazobactam 3 100 100 .375 gm In Sodium Chloride 0.9% 100 ml @ 25 mls/hr IVPB Q12H [facility] Rx# :[id number] Sodium Chloride 0.9% 1, 240 000 ml @ 20 mls/hr IV . Q24H [facility] Rx#:[id number] Output: Urine 200 Other: Voiding Method Toilet Urinal Urinal # Voids 1 2 - Exam -GENERAL: The patient is alert and oriented x3, however patient is more sleepy today -HEENT: Pupils are round and equally reacting to light. EOMI. No scleral icterus. No conjunctival pallor. Normocephalic, atraumatic. No pharyngeal erythema. No thyromegaly. Multiple lipomas on the cheeks with wants on the forehead,x2, closed with no bleeding CARDIOVASCULAR: S1 and S2 present. No murmurs, rubs, or gallops. PULMONARY: Chest is clear to auscultation, no wheezing or crackles. ABDOMEN: Soft, nontender, nondistended, normoactive bowel sounds. No palpable organomegaly. MUSCULOSKELETAL: No joint swelling or deformity. -EXTREMITIES: No cyanosis, clubbing, or pedal edema. Closed Wound on the right hand with a bruise. Dressing is in place NEUROLOGICAL: Gross neurological examination did not reveal any focal deficits. SKIN: No rashes. No petechiae - Labs CBC & Chem 7: 02/12/19 06:38 02/12/19 06:38 Labs: Abnormal Lab Results - Last 24 Hours (Table) 02/12/19 Range/Units 06:38 RBC 3.05 L (4.30-5.90) m/uL Hgb 10.4 L (13.0-17.5) gm/dL Hct 34.9 L (39.0-53.0) % MCV 114.2 H (80.0-100.0) fL MCHC 30.0 L (31.0-37.0) g/dL Plt Count 115 L (150-450) k/uL Lymphocytes # 0.8 L (1.0-4.8) k/uL Macrocytosis Marked A Assessment and Plan Assessment: Syncope , mostly vasovagal syncope associated with choking. Difficulty swallowing. On dysphagia diet pulmonary congestion with left lower lung suspicious for pneumonia, present on admission. Mostly related to aspiration pneumonia. Chronic bronchitis with chronic cough and dyspnea. Patient has COPD, does not look in acute exacerbation coagulopathy secondary to Coumadin. Improved Fall with head trauma End-stage kidney disease on hemodialysis Chronic atrial fibrillation on Coumadin Hyperlipidemia Plan: This is a pleasant 83 years old male who presents with syncope, coagulopathy and mostly aspiration pneumonia. Continue with Zosyn. Keep monitoring blood pressure, continue with midodrine. 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 Restart Coumadin pharmacy to dose and follow up INR. Ask for physical therapy evaluation. Follow-up chest x-ray. Patient might benefit from ECF placement upon discharge Labs and medication were reviewed.. Continue same treatment. Continue with symptomatic treatment. Resume home medication. Monitor lytes and vitals. DVT and GI prophylaxis. Further recommendations of the clinical course of the patient DVT prophylaxis: Coumadine GI Prophylaxis: Pepcid PT/OT: Recommend LOREN Prognosis is guarded
[2019-02-13 08:15] LABS: INR 2.4 (<1.2); Prothrombin Time 22.9 sec (9.0-12.0)
[2019-02-13 08:19] LABS: Calcium 8.2 mg/dL (8.4-10.2)
[2019-02-13] MEDS: ALBUTEROL NEBULIZED 2.5 MG/3 ML INHALATION SCH ×2 (08:20→17:59)
[2019-02-13 08:23] LABS: Basophils # (A) 0.1 k/uL (0-0.2); Basophils % (A) 1 %; Eosinophils # (A) 0.2 k/uL (0-0.7); Eosinophils % (A) 3 %; HCT 35.5 % (39.0-53.0); HGB 10.7 gm/dL (13.0-17.5); Hypochromasia Moderate; Lymphocytes # (A) 0.6 k/uL (1.0-4.8); Lymphocytes % (A) 12 %; MCH 34.1 pg (25.0-35.0); MCHC 30.2 g/dL (31.0-37.0); MCV 112.8 fL (80.0-100.0); Macrocytosis Marked; Mean Platelet Volume 8.4; Monocytes # (A) 0.3 k/uL (0-1.0); Monocytes % (A) 6 %; Neutrophils # (A) 3.9 k/uL (1.3-7.7); Neutrophils % (A) 75 %; Platelet Count 113 k/uL (150-450); RBC 3.15 m/uL (4.30-5.90); RDW 14.6 % (11.5-15.5); WBC 5.3 k/uL (3.8-10.6)
[2019-02-13] MEDS: levOCARNitine (WITH SUGAR) 100 MG/ML BOTTLE PO SCH ×3 (08:43→17:15)
[2019-02-13] MEDS: HYDROCORTISONE 10 MG TAB PO SCH ×2 (08:44→21:03)
[2019-02-13] MEDS: GABAPENTIN 100 MG CAP PO SCH ×3 (08:44→21:03)
[2019-02-13] MEDS: FAMOTIDINE 20 MG TAB PO SCH (08:44)
[2019-02-13] MEDS: CARBIDOPA-LEVODOPA 25-100 MG 1 EACH TAB PO SCH ×2 (08:44→21:03)
[2019-02-13] MEDS: MIDODRINE 5 MG TAB PO SCH ×3 (08:45→17:15)
[2019-02-13] MEDS: FUROSEMIDE 20 MG TAB PO SCH ×2 (08:46→17:02)
[2019-02-13] MEDS: BRIMONIDINE TARTRATE 0.2% DROPS 5 ML BTL BOTH EYES SCH ×2 (08:47→21:03)
[2019-02-13] MEDS: PIPERACILLIN-TAZOBACTAM 3.375 GM in SODIUM CHLORIDE 0.9% 100 ML IVPB SCH ×2 (08:48→19:29)
[2019-02-13] MEDS: TIMOLOL 0.5% OPHTH DROPS 5 ML BTL BOTH EYES SCH (08:48)
--- NOTE | 2019-02-13 08:53 | XR ---
EXAMINATION TYPE: XR chest 1V DATE OF EXAM: 02/13/2019 COMPARISON: 02/11/2019 HISTORY: Shortness of breath. Follow-up exam. TECHNIQUE: Single frontal view of the chest is obtained. FINDINGS: Shifting opacities are seen now more pronounced in the right lower lung and left midlung w ith trace right pleural effusion and [id number] left pleural effusion remaining unchanged. Mil d interstitial pulmonary edema is unchanged. Chronic rotator cuff sequela are seen on the left and pa rtially viewed on the right when compared to the prior. Advanced arthropathy of the left shoulder is also seen. Cardiomediastinal silhouette is stable and mildly enlarged. No sizable pneumothorax. IMPRESSION: Shifting multifocal airspace disease, likely atelectasis with fluid overload most likely on the basis of congestive heart failure including mild interstitial edema, trace right pleural effu [place] and moderate left pleural effusion.
[2019-02-13 08:54] LABS: Poikilocytosis (M) Present
[2019-02-13] MEDS: NON FORMULARY DRUG (Prorenal + D 1 TAB) PO SCH (08:54)
[2019-02-13] MEDS ORDERED: FUROSEMIDE 10 MG/ML 4 ML VIAL IV STA (12:14)
--- NOTE | 2019-02-13 13:07 | PN ---
PROGRESS NOTE Patient is seen for followup for end-stage renal disease. He is currently lying in bed. He is comfortable. No significant complaints. The patient is scheduled for hemodialysis today. PHYSICAL EXAMINATION: Blood pressure was 95/68, heart rate 78 per minute. He is afebrile. EXAMINATION OF THE HEART: S1, S2. EXAMINATION OF THE LUNGS: Bilateral breath sounds are heard. Abdomen is soft, nontender. Examination of lower extremities shows no significant edema. LABS: Labs show hemoglobin 10.7, sodium 137, potassium 5.0. ASSESSMENT: 1. End-stage renal disease, on hemodialysis on a Wednesday, Wednesday, Wednesday schedule. The patient will be dialyzed today. 2. Hypotension, maintained on midodrine. Mild element of adrenal insufficiency also present for which patient is maintained on Cortef. 3. Anemia of chronic disease. 4. Chronic kidney disease mineral bone disorder. 5. Status post fall. PLAN: Hemodialysis today. Following which patient could be discharged from Nephrology standpoint. Inpatient rehab is being considered. MMODL / IJN: [id number] /
[2019-02-13] MEDS ORDERED: IPRATROPIUM-ALBUTEROL 3 ML NEB INHALATION PRN (13:50)
--- NOTE | 2019-02-13 13:52 | P.CNPUL ---
History of Present Illness Consult date: 02/13/19 Requesting physician: Rodriguez Katz Reason for consult: dyspnea, abnormal CXR/CT Chief complaint: Difficulty breathing, aspiration History of present illness: This is a 83-year-old white male patient who follows with Dr. Peoples for primary care services, has a past medical history of end-stage renal disease on hemodialysis on Wednesday basis, chronic atrial fibrillation on Coumadin, COPD, hypertension, hyperlipidemia, recurrent pleural effusions, with past history of thoracentesis, with negative pathology. Patient's was recent echocardiogram revealed moderate concentric left ventricular hypertrophy with mildly impaired left ventricular systolic function and EF of 45-50%. Did not show significant valvular disease. Patient was recently hospitalized in January for difficulty breathing related to left pleural effusion and atelectasis, following a fall at home. Ultrasound of the chest at that time did not show significant fluid pocket, no showed for 0.3 cm pocket on the left. He was medically managed, and discharged home on 01/25/2019. On 02/07/2019 patient was brought in to the emergency department, after choking episode, he was apparently at his son's house, and started choking, he apparently started passing out, and his son gave him a Heimlich maneuver with successful removal of food products. Following that they both fell down, did strike his head. He sustained abrasions on the right hand and left arm. Brain CT in the emergency department showed age-related atrophic and chronic small vessel ischemic changes without acute intracranial process. Chest x-ray showed left lower lobe atelectasis and pleural effusion, infiltrate could not be excluded, pulmonary venous congestion without overt heart failure. Admission blood work showed normal white count of 5.3, hemoglobin of 10.8, INR was 4.3, sodium was 135, potassium is 5.2, chloride was 94, CO2 is 31, BUN is 56, creatinine is 4.15, proBNP was elevated at 79,000, urinalysis without evidence of infection. he was started on empiric antibiotics in the form of Zosyn, he has received some intermittent doses of Lasix, and he is on maintenance dose of Lasix 60 mg twice daily. Been experiencing intermittent hypotension, however urine and serum cortisone level was 14, consistent with relative adrenal insufficiency, he was started on hydrocortisone. In addition he is on midodrine. Today's chest x-ray shows shifting multifocal airspace disease, likely representing atelectasis with fluid overload on the basis of congestive heart failure with the mild interstitial edema and trace right pleural effusion and moderate left neural effusion, however the possibility of underlying infect ious process could not be ruled out. Review of Systems All systems: negative Constitutional: Denies chills, Denies fever Eyes: denies blurred vision, denies pain Ears, nose, mouth and throat: Denies headache, Denies sore throat Cardiovascular: Denies chest pain, Denies shortness of breath Respiratory: Reports dyspnea, Denies cough Gastrointestinal: Denies abdominal pain, Denies diarrhea, Denies nausea, Denies vomiting Musculoskeletal: Reports frequent falls, Reports gait dysfunction, Denies myalgias Musculoskeletal: right: wrist pain, wrist stiffness Integumentary: Denies pruritus, Denies rash Neurological: Reports balance difficulties, Reports gait dysfunction, Denies numbness, Denies weakness Psychiatric: Denies anxiety, Denies depression Endocrine: Denies fatigue, Denies weight change Past Medical History Past Medical History: Atrial Fibrillation, COPD, Hyperlipidemia, Hypertension, Renal Disease Additional Past Medical History / Comment(s): HAS HEMODIALYSIS - WED,WED, WED , GLAUCOMA,MACULAR DEGENERATION History of Any Multi-Drug Resistant Organisms: None Reported Past Surgical History: Hernia Repair Additional Past Surgical History / Comment(s): Mastoid surgery X3 Past Anesthesia/Blood Transfusion Reactions: Previous Problems w/ Anesthesia Additional Past Anesthesia/Blood Transfusion Reaction / Comment(s): STATES TOOK LONGER WAKING UP Past Psychological History: No Psychological Hx Reported Smoking Status: Former smoker Past Alcohol Use History: None Reported Past Drug Use History: None Reported - Past Family History Sister(s) Family Medical History: Cancer Son(s) Family Medical History: Cancer Father Family Medical History: Asthma Mother Family Medical History: Hypertension Medications and Allergies Home Medications Medication Instructions Recorded Confirmed Type Brimonidine Tartrate [Alphagan P 1 drop BOTH EYES BID 12/10/14 02/07/19 History 0.1% Ophth Soln] Timolol 0.5% Ophth Soln [Timoptic 1 drop BOTH EYES DAILY 12/11/14 02/07/19 History 0.5% Ophth Soln] Allopurinol [Zyloprim] 100 mg PO HS 12/27/17 02/07/19 History Warfarin [Coumadin] 2.5 - 5 mg PO DIRECTED 12/27/17 02/07/19 History rOPINIRole HCL [Requip] 4 mg PO TID 12/27/17 02/07/19 History Tamsulosin HCl [Flomax] 0.4 mg PO BID 01/24/18 02/07/19 History Midodrine [ProAmatine] 10 mg PO AC-TID #180 tab 01/31/18 02/07/19 Rx Pravastatin Sodium [Pravachol] 20 mg PO HS 10/04/18 02/07/19 History Carbidopa-Levodopa 25-100 mg 1 tab PO BID 01/24/19 02/07/19 History [Sinemet 25-100 mg] Doxepin [SINEquan] 10 mg PO HS 01/24/19 02/07/19 History Furosemide [Lasix] 60 mg PO BID 01/24/19 02/07/19 History Prorenal + D 1 tab PO DAILY 01/24/19 02/07/19 History levOCARNitine [Levocarnitine] 330 mg PO TID-W/MEALS 01/24/19 02/07/19 History Albuterol Nebulized [Ventolin 2.5 mg INHALATION TID 02/07/19 02/07/19 History Nebulized] Gabapentin [Neurontin] 100 mg PO TID 02/07/19 02/07/19 History Allergies Allergy/AdvReac Type Severity Reaction Status Date / Time No Known Allergies Allergy Verified 02/07/19 14:51 Physical Exam Vitals: Vital Signs Temp Pulse Pulse Resp BP Pulse Ox 02/13/19 11:46 97.8 F 79 17 97/54 96 02/13/19 08:42 80 02/13/19 08:22 78 02/13/19 05:00 97.5 F L 78 16 95/68 100 02/12/19 21:00 97.4 F L 76 16 86/50 100 02/12/19 19:18 76 02/12/19 19:04 74 02/12/19 15:35 80 02/12/19 15:25 78 Intake and Output 02/12/19 02/13/19 02/13/19 22:59 06:59 14:59 Intake Total 180 160 Balance 180 160 Intake: Intake, IV Titration 180 160 Amount Piperacillin-Tazobactam 3 100 .375 gm In Sodium Chloride 0.9% 100 ml @ 25 mls/hr IVPB Q12H [facility] Rx# :[id number] Sodium Chloride 0.9% 1, 80 160 000 ml @ 20 mls/hr IV . Q24H [facility] Rx#:[id number] Other: Voiding Method Urinal # Voids 2 GENERAL EXAM: Alert, very pleasant, 83-year-old white male, with facial bruising at different stages of healing, mostly fading over left eye, on the for ehead, comfortable in no apparent distress. HEAD: Normocephalic/atraumatic. EYES: Normal reaction of pupils, equal size. Conjunctiva pink, sclera white. NOSE: Clear with pink turbinates. THROAT: No erythema or exudates. NECK: No masses, no JVD, no thyroid enlargement, no adenopathy. CHEST: No chest wall deformity. Symmetrical expansion. LUNGS: Equal air entry with scattered wheezing CVS: Regular rate and rhythm, normal S1 and S2, no gallops, no murmurs, no rubs ABDOMEN: Soft, nontender. No hepatosplenomegaly, normal bowel sounds, no guarding or rigidity. EXTREMITIES: No clubbing, no cyanosis, 2+ pulses and upper and lower extremities. Right arm fistula with positive bruit and thrill. Right arm swelling, laceration on the right wrist covered with a dressing MUSCULOSKELETAL: Muscle strength and tone normal. SPINE: No scoliosis or deformity SKIN: No rashes CENTRAL NERVOUS SYSTEM: Alert and oriented -3. No focal deficits, tone is normal in all 4 extremities. PSYCHIATRIC: Alert and oriented -3. Appropriate affect. Intact judgment and insight. Results - Laboratory Findings CBC and BMP: 02/13/19 07:20 02/13/19 07:20 PT/INR, D-dimer PT 22.9 sec (9.0-12.0) H 02/13/19 07:20 INR 2.4 (<1.2) H 02/13/19 07:20 Abnormal lab findings: Abnormal Labs 02/07/19 02/07/19 02/07/19 14:10 14:10 14:10 RBC 3.16 L Hgb 10.8 L Hct 31.9 L MCV 100.9 H D MCHC Plt Count 133 L Lymphocytes # 0.7 L Macrocytosis PT 41.2 H INR 4.3 H APTT 51.5 H Sodium 135 L Potassium 5.2 H Chloride 94 L Carbon Dioxide 31 H BUN 56 H Creatinine 4.15 H Glucose 113 H Calcium ALT 10 L Alkaline Phosphatase 315 H Total Protein 6.0 L Albumin 3.1 L ACTH Urine Protein Amorphous Sediment Hyaline Casts Urine Mucus 02/08/19 02/08/19 02/08/19 00:15 07:21 07:21 RBC 3.17 L Hgb 10.8 L Hct 33.0 L MCV 104.2 H MCHC Plt Count 121 L Lymphocytes # 0.9 L Macrocytosis PT 36.6 H INR 3.8 H APTT Sodium Potassium Chloride Carbon Dioxide BUN Creatinine Glucose Calcium ALT Alkaline Phosphatase Total Protein Albumin ACTH Urine Protein 1+ H Amorphous Sediment Rare H Hyaline Casts 11 H Urine Mucus Rare H 02/08/19 02/09/19 02/09/19 07:21 07:32 07:32 RBC 3.18 L Hgb 10.8 L Hct 33.3 L MCV 104.7 H MCHC Plt Count 121 L Lymphocytes # 0.9 L Macrocytosis PT 25.1 H INR 2.6 H APTT Sodium 136 L Potassium 5.4 H Chloride 96 L Carbon Dioxide BUN 66 H Creatinine 4.64 H Glucose Calcium ALT Alkaline Phosphatase Total Protein Albumin ACTH Urine Protein Amorphous Sediment Hyaline Casts Urine Mucus 02/09/19 02/10/19 02/10/19 07:32 08:14 08:14 RBC 3.08 L Hgb 10.1 L Hct 34.0 L MCV 110.3 H D MCHC 29.6 L Plt Count 115 L Lymphocytes # 0.7 L Macrocytosis Marked A PT 21.3 H INR 2.2 H APTT Sodium Potassium Chloride Carbon Dioxide 31 H BUN 45 H Creatinine 4.00 H Glucose Calcium ALT Alkaline Phosphatase Total Protein Albumin ACTH Urine Protein Amorphous Sediment Hyaline Casts Urine Mucus 02/10/19 02/10/19 02/11/19 08:14 14:17 07:37 RBC Hgb Hct MCV MCHC Plt Count Lymphocytes # Macrocytosis PT 19.8 H INR 2.0 H APTT Sodium Potassium Chloride Carbon Dioxide BUN 48 H Creatinine 4.30 H Glucose Calcium ALT Alkaline Phosphatase Total Protein Albumin ACTH 47.20 H Urine Protein Amorphous Sediment Hyaline Casts Urine Mucus 02/11/19 02/11/19 02/12/19 07:37 07:37 06:38 RBC 2.85 L Hgb 9.6 L Hct 32.0 L MCV 112.1 H MCHC 30.0 L Plt Count 99 L Lymphocytes # 0.7 L Macrocytosis Marked A PT 22.0 H INR 2.3 H APTT Sodium Potassium Chloride Carbon Dioxide BUN 41 H Creatinine 4.23 H Glucose Calcium 8.3 L ALT Alkaline Phosphatase Total Protein Albumin ACTH Urine Protein Amorphous Sediment Hyaline Casts Urine Mucus 02/12/19 02/12/19 02/13/19 06:38 06:38 07:20 RBC 3.05 L Hgb 10.4 L Hct 34.9 L MCV 114.2 H MCHC 30.0 L Plt Count 115 L Lymphocytes # 0.8 L Macrocytosis Marked A PT 22.9 H INR 2.4 H APTT Sodium Potassium Chloride Carbon Dioxide BUN 53 H Creatinine 5.27 H Glucose Calcium ALT Alkaline Phosphatase Total Protein Albumin ACTH Urine Protein Amorphous Sediment Hyaline Casts Urine Mucus 02/13/19 02/13/19 07:20 07:20 RBC 3.15 L Hgb 10.7 L Hct 35.5 L MCV 112.8 H MCHC 30.2 L Plt Count 113 L Lymphocytes # 0.6 L Macrocytosis Marked A PT INR APTT Sodium Potassium Chloride Carbon Dioxide BUN 63 H Creatinine 6.00 H Glucose Calcium 8.2 L ALT Alkaline Phosphatase Total Protein Albumin ACTH Urine Protein Amorphous Sediment Hyaline Casts Urine Mucus - Diagnostic Findings Chest x-ray: report reviewed, image reviewed Additional studies: X-ray of the right wrist and right hand reviewed, brain CT reviewed, Assessment and Plan Plan: Assessment: #1. Dyspnea related to acute exacerbation of congestive heart failure with mildly impaired systolic function and EF of 45-50% #2. Doubt pneumonia although infectious process cannot entirely be ruled, related to aspiration #3. Acute exacerbation of chronic obstructive pulmonary disease #5. Episode of aspiration, and syncope, requiring Heimlich maneuver with successful removal of the food. #6. End-stage renal disease on hemodialysis #7. Chronic atrial fibrillation on Coumadin #8. Fall at home following the aspiration episode #9. Injury to the right wrist and right hand sustained in the fall and x-ray of the wrist and hand were negative for fracture #10. Syncopal episode at home following the choking episode brain CTs were negative 2 #11. Recent admission for a fall, left-sided pleural effusion #12. Gait dysfunction #13. History of left-sided thoracentesis with the bloody effusion, and negative pathology #14. Retention #15. Hyperlipidemia #16. Former smoker Plan: Continue with current antibiotics, doubt the presence of underlying pneumonia, although cannot completely rule it out, patient's symptoms are most likely related to acute exacerbation of systolic CHF, and is awaiting to undergo hemodialysis today. Repeat chest x-ray in the morning Continue breathing treatment, maintain aspiration precautions. Looks like patient had a recent out modified barium swallow which did show deep penetration with thin liquids and mild penetration with nectar liquids, but no aspiration visualized, plus has been consulted is currently nothing by mouth, and will undergo a repeat barium swallow evaluation. We'll continue to follow and make further recommendations. I performed a history & physical examination of the patient and discussed their management with my nurse practitioner, Mariela Irene. I reviewed the nurse practitioner's note and agree with the documented findings and plan of care. Lung sounds are positive for diffuse wheezes throughout the lung brewster. The findings and the impression was discussed with the patient. I attest to the documentation by the nurse practitioner. Time with Patient: Greater than 30
--- NOTE | 2019-02-13 14:02 | FL ---
EXAMINATION TYPE: FL barium swallow w video DATE OF EXAM: 02/13/2019 MODIFIED SWALLOW / DEGLUTITION STUDY CLINICAL HISTORY: Dysphagia. TECHNIQUE: Deglutition study is performed utilizing thin liquid barium, honey and nectar thick liqui d barium, barium thick applesauce, and barium coated cracker. A total of 2 minutes 43 seconds of fluo roscopic time was utilized during procedure. 0 spot images are saved. COMPARISON: None. FINDINGS: The oral and pharyngeal phases show satisfactory initiation with some diminished propagatio n as there is slightly diminished epiglottis inversion. Satisfactory mastication is seen with solid m odalities tested. There is several episodes of deep penetration with clearing on subsequent swallows . No aspiration is seen. Mild to severe pharyngeal residue was appreciated which is more prominent wi th more viscous modalities. IMPRESSION: Several episodes of deep penetration without aspiration. Please refer to speech therapis t notes for further details if necessary.
[2019-02-13] MEDS: SODIUM CHLORIDE 0.9% 1,000 ML IV SCH (17:59)
[2019-02-13] MEDS ORDERED: WARFARIN 2.5 MG TAB PO ONE (18:00)
[2019-02-13] MEDS ORDERED: GELATIN SPONGE,ABSORB (LARGE) 1 EACH SPONGE ONE (18:30)
[2019-02-13] MEDS: BUDESONIDE 1 MG/2 ML NEBU INHALATION SCH (19:35)
[2019-02-13] MEDS: FORMOTEROL FUMARATE 20 MCG/2 ML NEBU INHALATION SCH (19:36)
[2019-02-13] MEDS: IPRATROPIUM-ALBUTEROL 3 ML NEB INHALATION SCH (19:36)
[2019-02-13] MEDS: PRAVASTATIN SODIUM 20 MG TAB PO SCH (21:03)
[2019-02-13] MEDS: ALLOPURINOL 100 MG TAB PO SCH (21:03)
[2019-02-13] MEDS: TAMSULOSIN 0.4 MG CAP.ER.24H PO SCH (21:03)
[2019-02-13] MEDS: DOXEPIN 10 MG CAP PO SCH (21:03)
[2019-02-14] MEDS: FORMOTEROL FUMARATE 20 MCG/2 ML NEBU INHALATION SCH ×2 (08:14→19:41)
[2019-02-14] MEDS: BUDESONIDE 1 MG/2 ML NEBU INHALATION SCH ×2 (08:14→19:31)
[2019-02-14] MEDS: IPRATROPIUM-ALBUTEROL 3 ML NEB INHALATION SCH ×3 (08:14→19:31)
[2019-02-14 08:39] LABS: INR 2.7 (<1.2); Prothrombin Time 26.5 sec (9.0-12.0)
[2019-02-14] MEDS: FUROSEMIDE 20 MG TAB PO SCH ×2 (08:41→17:52)
[2019-02-14] MEDS: HYDROCORTISONE 10 MG TAB PO SCH ×2 (08:41→21:02)
[2019-02-14] MEDS: CARBIDOPA-LEVODOPA 25-100 MG 1 EACH TAB PO SCH ×2 (08:41→21:03)
[2019-02-14] MEDS: MIDODRINE 5 MG TAB PO SCH ×3 (08:41→17:54)
[2019-02-14] MEDS: GABAPENTIN 100 MG CAP PO SCH ×3 (08:42→21:02)
[2019-02-14] MEDS: TAMSULOSIN 0.4 MG CAP.ER.24H PO SCH ×2 (08:42→21:02)
[2019-02-14] MEDS: FAMOTIDINE 20 MG TAB PO SCH (08:42)
[2019-02-14] MEDS: BRIMONIDINE TARTRATE 0.2% DROPS 5 ML BTL BOTH EYES SCH ×2 (08:42→21:03)
[2019-02-14] MEDS: levOCARNitine (WITH SUGAR) 100 MG/ML BOTTLE PO SCH ×3 (08:43→18:09)
[2019-02-14] MEDS: NON FORMULARY DRUG (Prorenal + D 1 TAB) PO SCH (08:45)
[2019-02-14] MEDS: TIMOLOL 0.5% OPHTH DROPS 5 ML BTL BOTH EYES SCH (08:45)
[2019-02-14] MEDS: PIPERACILLIN-TAZOBACTAM 3.375 GM in SODIUM CHLORIDE 0.9% 100 ML IVPB SCH ×2 (08:53→21:04)
--- NOTE | 2019-02-14 09:14 | XR ---
EXAMINATION TYPE: XR chest 1V portable DATE OF EXAM: 02/14/2019 COMPARISON: 02/13/2019 HISTORY: Dysphagia, congestion, and fluid overload. TECHNIQUE: Single frontal view of the chest is obtained. FINDINGS: Slightly improved interstitial edema. Small left pleural effusion and trace right pleural effusion (loculated on the right) remain. Peripheral opacity in the left appear somewhat spiculated a lthough new from the prior of the previous day and therefore likely related to atelectasis. Developin g right basal airspace disease. Cardiomediastinal silhouette is enlarged. Extensive degenerative blunt ges of the shoulders as there is sequela of prior chronic rotator cuff tear. No sizable pneumothorax. Diffuse osseous demineralization is seen. IMPRESSION: 1. Developing patchy right basilar airspace disease that may represent confluent edema, atelectasis o r pneumonia in this patient with deep penetration on the recent modified barium swallow exam. 2. Left midlung new spiculated density likely represents atelectasis. Attention on follow-up exams. 3. Slightly improved fluid overload with persistent trace right loculated pleural effusion and small left pleural effusion.
--- NOTE | 2019-02-14 10:10 | P.PN ---
Subjective Progress Note Date: 02/14/19 Principal diagnosis: Acute exacerbation of systolic congestive heart failure. This is a 83-year-old white male patient who follows with Dr. Peoples for primary care services, has a past medical history of end-stage renal disease on hemodialysis on Wednesday basis, chronic atrial fibrillation on Coumadin, COPD, hypertension, hyperlipidemia, recurrent pleural effusions, with past history of thoracentesis, with negative pathology. Patient's was recent echocardiogram revealed moderate concentric left ventricular hypertrophy with mildly impaired left ventricular systolic function and EF of 45-50%. Did not show significant valvular disease. Patient was recently hospitalized in January for difficulty breathing related to left pleural effusion and atelectasis, following a fall at home. Ultrasound of the chest at that time did not show significant fluid pocket, no showed for 0.3 cm pocket on the left. He was medically managed, and discharged home on 01/25/2019. On 02/07/2019 patient was brought in to the emergency department, after choking episode, he was apparently at his son's house, and started choking, he apparently started passing out, and his son gave him a Heimlich maneuver with successful removal of food products. Following that they both fell down, did strike his head. He sustained abrasions on the right hand and left arm. Brain CT in the emergency department showed age-related atrophic and chronic small vessel ischemic changes without acute intracranial process. Chest x-ray showed left lower lobe atelectasis and pleural effusion, infiltrate could not be excluded, pulmonary venous congestion without overt heart failure. Admission blood work showed normal white count of 5.3, hemoglobin of 10.8, INR was 4.3, sodium was 135, potassium is 5.2, chloride was 94, CO2 is 31, BUN is 56, creatinine is 4.15, proBNP was elevated at 79,000, urinalysis without evidence of infection. he was started on empiric antibiotics in the form of Zosyn, he has received some intermittent doses of Lasix, and he is on maintenance dose of Lasix 60 mg twice daily. Been experiencing intermittent hypotension, however urine and serum cortisone level was 14, consistent with relative adrenal insufficiency, he was started on hydrocortisone. In addition he is on midodrine. Today's chest x-ray shows shifting multifocal airspace disease, li jaziel representing atelectasis with fluid overload on the basis of congestive heart failure with the mild interstitial edema and trace right pleural effusion and moderate left neural effusion, however the possibility of underlying infectious process could not be ruled out. The patient is seen today 02/14/2019 in follow-up on the regular medical floor. He is currently awake and alert in no acute distress. He is maintaining good O2 saturations in the 90s on 2 L/m per nasal cannula. He remains on DuoNeb inhalations, Pulmicort and Perforomist inhalations, IV Zosyn. Quite elated on warfarin. INR 2.7. Chest x-ray showing confluent edema, atelectasis versus aspiration pneumonia based on deep penetration on a recent modified barium swallow exam. Left midlung new speculated density likely representing atelectasis. There is slight improvement in the fluid overload with persistent trace right loculated pleural effusion and small left pleural effusion. Currently on Lasix 60 mg twice a day. Objective - Vital Signs Vital signs: Vital Signs Temp 97.5 F L 02/14/19 05:00 Pulse 76 02/14/19 08:35 Resp 18 02/14/19 05:00 BP 87/52 02/14/19 05:00 Pulse Ox 94 L 02/14/19 05:00 Intake & Output 02/13/19 02/14/19 02/14/19 18:59 06:59 18:59 Intake Total 620 Output Total 2500 Balance -1880 Intake: Intake, IV Titration 100 Amount Piperacillin-Tazobactam 3 100 .375 gm In Sodium Chloride 0.9% 100 ml @ 25 mls/hr IVPB Q12H [facility] Rx# :[id number] Oral 120 Hemodialysis 400 Output: Hemodialysis 2500 Other: Voiding Method Toilet Urinal # Voids 1 2 # Bowel Movements 2 2 - Exam GENERAL EXAM: Alert, very pleasant, 83-year-old male patient, on 2 L nasal cannula, with facial bruising at different stages of healing, mostly fading over left eye, on the forehead, comfortable in no apparent distress. HEAD: Normocephalic/atraumatic. EYES: Normal reaction of pupils, equal size. Conjunctiva pink, sclera white. NOSE: Clear with pink turbinates. THROAT: No erythema or exudates. NECK: No masses, no JVD, no thyroid enlargement, no adenopathy. CHEST: No chest wall deformity. Symmetrical expansion. LUNGS: Equal air entry with scattered wheezing, few scattered rhonchi. CVS: Regular rate and rhythm, normal S1 and S2, no gallops, no murmurs, no rubs ABDOMEN: Soft, nontender. No hepatosplenomegaly, normal bowel sounds, no guarding or rigidity. EXTREMITIES: No clubbing, no cyanosis, 2+ pulses and upper and lower extremities. Right arm fistula with positive bruit and thrill. Right arm swelling, laceration on the right wrist covered with a dressing MUSCULOSKELETAL: Muscle strength and tone normal. SPINE: No scoliosis or deformity SKIN: No rashes CENTRAL NERVOUS SYSTEM: No focal deficits, tone is normal in all 4 extremities. PSYCHIATRIC: Alert and oriented -3. Appropriate affect. Intact judgment and insight. - Labs CBC & Chem 7: 02/13/19 07:20 02/13/19 07:20 Labs: Abnormal Lab Results - Last 24 Hours (Table) 02/14/19 Range/Units 07:51 PT 26.5 H (9.0-12.0) sec INR 2.7 H (<1.2) Assessment and Plan Assessment: Assessment: #1. Dyspnea related to acute exacerbation of congestive heart failure with mildly impaired systolic function and EF of 45-50% #2. Doubt pneumonia although infectious process cannot entirely be ruled, related to aspiration #3. Acute exacerbation of chronic obstructive pulmonary disease #5. Episode of aspiration, and syncope, requiring Heimlich maneuver with successful removal of the food. #6. End-stage renal disease on hemodialysis #7. Chronic atrial fibrillation on Coumadin #8. Fall at home following the aspiration episode #9. Injury to the right wrist and right hand sustained in the fall and x-ray of the wrist and hand were negative for fracture #10. Syncopal episode at home following the choking episode brain CTs were negative 2 #11. Recent admission for a fall, left-sided pleural effusion #12. Gait dysfunction #13. History of left-sided thoracentesis with the bloody effusion, and negative pathology #14. Retention #15. Hyperlipidemia #16. Former smoker Plan: The patient was seen and evaluated by Dr. Horton. Chest x-ray reviewed. He is currently on Zosyn that could be switched to Augmentin. Continue bronchodilators. Continue diuretics. Home once cleared medically. Follow-up in our office in 1-2 weeks' time. We will repeat a chest x-ray then. I, the cosigning physician, performed a history & physical examination of the patient. Lungs sounds few scattered rhonchi, end expiratory wheeze. Maintaining good O2 saturations in the 90s on 2 L/m per nasal. I discussed the assessment and plan of care with my nurse practitioner, Charity Diallo. I attest to the above note as dictated by her.
[2019-02-14] MEDS ORDERED: DOCUSATE 100 MG CAP PO PRN (15:31)
[2019-02-14] MEDS ORDERED: WARFARIN 2.5 MG TAB PO ONE (18:00)
--- NOTE | 2019-02-14 19:36 | PN ---
PROGRESS NOTE Patient is seen for followup for end-stage renal disease. He is currently lying in bed. He is comfortable. He is not in any acute distress. Patient is maintained on a Wednesday, Wednesday, Wednesday schedule for dialysis. He will be dialyzed tomorrow. No significant complaints today. On examination, blood pressure was 89/45. Earlier this morning when patient was seen it was 87/52. Heart rate of 86 per minute. He is afebrile. EXAMINATION OF THE HEART: S1 and S2. EXAMINATION OF LUNGS: Bilateral breath sounds are heard. Decreased breath sounds at bases. ABDOMEN: Soft, non-tender. Examination of lower extremities shows trace edema bilaterally. MILL WORK exam is grossly intact. Labs from yesterday show potassium 5.0, sodium 137. ASSESSMENT: 1. End-stage renal disease, on hemodialysis on a Wednesday, Wednesday, Wednesday schedule. 2. Mild volume overload. We will plan for about 2 to 2.5 L of ultrafiltration tomorrow with dialysis. 3. Hypotension with borderline ACTH stimulation test, maintained on Cortef and midodrine. 4. Chronic kidney disease mineral bone disorder. 5. Cardiomyopathy. 6. Status post syncope. PLAN: Hemodialysis in a.m. UF of about 2 to 2.5 L as tolerated. MMODL / IJN: [id number] /
[2019-02-14] MEDS: PRAVASTATIN SODIUM 20 MG TAB PO SCH (21:01)
[2019-02-14] MEDS: ALLOPURINOL 100 MG TAB PO SCH (21:02)
[2019-02-14] MEDS: DOXEPIN 10 MG CAP PO SCH (21:03)
[2019-02-14] MEDS: SODIUM CHLORIDE 0.9% 1,000 ML IV SCH (23:54)
[2019-02-15] MEDS: ACETAMINOPHEN TAB 325 MG TAB PO PRN (00:33)
--- NOTE | 2019-02-15 07:26 | P.DS ---
Providers Date of admission: 02/09/19 13:49 Attending physician: Aura More Consults: 02/07/19 18:31 Consult Physician Urgent Consulting Provider: Vaibhav Ortiz Consult Reason/Comments: copd, abn cxr Do you want consulting provider notified?: Yes Consult Physician Urgent Consulting Provider: Katie Gastelum Consult Reason/Comments: HD Do you want consulting provider notified?: Yes Primary care physician: Vaibhav Ortiz Hospital Course: Diagnoses: Syncope , mostly vasovagal syncope associated with choking. Difficulty swallowing. On dysphagia diet pulmonary congestion with left lower lung suspicious for pneumonia, present on admission. Mostly related to aspiration pneumonia. Relative to general insufficiency, steroids was started Chronic bronchitis with chronic cough and dyspnea. Patient has COPD, does not look in acute exacerbation Chronic systolic heart failure with possible acute exacerbation, ejection fraction 45-50% coagulopathy secondary to Coumadin. Improved Fall with head trauma End-stage kidney disease on hemodialysis Chronic atrial fibrillation on Coumadin Low-normal blood pressure, on midodrine and Cortef. Hyperlipidemia Hospital course: This is a pleasant 83 years old female with past medical history of atrial fibrillation, COPD, hypertension, hyperlipidemia, end-stage renal disease on hemodialysis. She presents because of syncope and fall hitting her head. As inpatient with family at bedside he was at the restaurant and he choked with a piece of [place] and he managed to spit it out however eventually passed out as a result, he fell and hit his head. Patient has multiple bruises and wounds on his forehead and cheeks, his wounds are closed and bleeding has stopped, also he has another wound in his right hand which is controlled and dressing is in place. For concerns of his swallowing patient underwent swallow evaluation and patient recommended to have Dysphagia III (chopped) texture diet with thin liquids via cup only would be most appropriate at this time. ( no straws). Patient also was treated with antibiotics for possible aspiration pneumonitis. On admission his INR was supratherapeutic, his dose for his Coumadin was adjusted and INR was therapeutic for the last few days prior to discharge. Patient will continue with Coumadin for his adjuvant fibrillation on discharge. Nephrology were following the patient for hemodialysis for his end-stage renal disease. Also, Bita was admitted for relative adrenal insufficiency. With therapy patient showed interval improvement and back close to his baseline. On the day of discharge she denies chest pain or dyspnea. No dizziness. No change in urine or bowel habits. Due to his generalized weakness, physical therapy evaluation recommended subacute rehab however patient did not. Patient also on Coumadin with previous history of falls, Risks are explained for the patient including but not limited to risk of recurrent falls , cranial bleed or bloody trauma, stroke, paralysis, organ dysfunction and or are explained for the patient however he was adamant to refuse rehab and he insists on going home. Patient seems to have Assisted to make medical decisions upon my evaluation Patient was cleared for discharge by all consults once including pulmonary and nephrology Problems and management plan were discussed with the patient and he verbalized understanding and acceptance Patient was found stable and can be discharged home however he needs follow-up as an outpatient. Patient was instructed to follow up with PCP within one week and patient agrees Gen: patient is a AAOx3, no distress. Multiple face wounds 100 and wounds are improving, very clean and closed. Generally weak CVS: S1-S2, RRR, no murmur Lungs: B/L CTA, no wheezing Abdomen: soft, no distention, no tenderness, positive bowel sounds Extremity: no leg edema or induration Time spent more than 35 minutes Plan - Discharge Summary Discharge Rx Participant: No New Discharge Prescriptions: No Action Brimonidine Tartrate [Alphagan P 0.1% Ophth Soln] 1 drop BOTH EYES BID Timolol 0.5% Ophth Soln [Timoptic 0.5% Ophth Soln] 1 drop BOTH EYES DAILY rOPINIRole HCL [Requip] 4 mg PO TID Allopurinol [Zyloprim] 100 mg PO HS Warfarin [Coumadin] 2.5 - 5 mg PO DIRECTED Tamsulosin HCl [Flomax] 0.4 mg PO BID Midodrine [ProAmatine] 10 mg PO AC-TID #180 tab Pravastatin Sodium [Pravachol] 20 mg PO HS Furosemide [Lasix] 60 mg PO BID Carbidopa-Levodopa 25-100 mg [Sinemet 25-100 mg] 1 tab PO BID Prorenal + D 1 tab PO DAILY Doxepin [SINEquan] 10 mg PO HS levOCARNitine [Levocarnitine] 330 mg PO TID-W/MEALS Gabapentin [Neurontin] 100 mg PO TID Albuterol Nebulized [Ventolin Nebulized] 2.5 mg INHALATION TID Discharge Medication List Brimonidine Tartrate [Alphagan P 0.1% Ophth Soln] 1 drop BOTH EYES BID 12/10/14 [History] Timolol 0.5% Ophth Soln [Timoptic 0.5% Ophth Soln] 1 drop BOTH EYES DAILY 12/11/14 [History] Allopurinol [Zyloprim] 100 mg PO HS 12/27/17 [History] Warfarin [Coumadin] 2.5 - 5 mg PO DIRECTED 12/27/17 [History] rOPINIRole HCL [Requip] 4 mg PO TID 12/27/17 [History] Tamsulosin HCl [Flomax] 0.4 mg PO BID 01/24/18 [History] Midodrine [ProAmatine] 10 mg PO AC-TID #180 tab 01/31/18 [Rx] Pravastatin Sodium [Pravachol] 20 mg PO HS 10/04/18 [History] Carbidopa-Levodopa 25-100 mg [Sinemet 25-100 mg] 1 tab PO BID 01/24/19 [History] Doxepin [SINEquan] 10 mg PO HS 01/24/19 [History] Furosemide [Lasix] 60 mg PO BID 01/24/19 [History] Prorenal + D 1 tab PO DAILY 01/24/19 [History] levOCARNitine [Levocarnitine] 330 mg PO TID-W/MEALS 01/24/19 [History] Albuterol Nebulized [Ventolin Nebulized] 2.5 mg INHALATION TID 02/07/19 [History] Gabapentin [Neurontin] 100 mg PO TID 02/07/19 [History] Follow up Appointment(s)/Referral(s): Vaibhav Ortiz MD [Primary Care Provider] - 1-2 days [facility], [NON-STAFF] - 1-2 Days (will call to set up schedual. If any questions please contact agency) Activity/Diet/Wound Care/Special Instructions: diet recommendations: Dysphagia III (chopped) texture diet with thin liquids via cup only would be most appropriate at this time. ( no straws) Pt was on a wait-list for outpt dysphagia therapy which was to include adjunctive NMES
[2019-02-15] MEDS: CARBIDOPA-LEVODOPA 25-100 MG 1 EACH TAB PO SCH ×2 (08:30→20:23)
[2019-02-15] MEDS: TAMSULOSIN 0.4 MG CAP.ER.24H PO SCH ×2 (08:30→20:23)
[2019-02-15] MEDS: FUROSEMIDE 20 MG TAB PO SCH ×2 (08:30→17:40)
[2019-02-15] MEDS: MIDODRINE 5 MG TAB PO SCH ×3 (08:30→17:41)
[2019-02-15] MEDS: FAMOTIDINE 20 MG TAB PO SCH (08:30)
[2019-02-15] MEDS: GABAPENTIN 100 MG CAP PO SCH ×3 (08:30→21:34)
[2019-02-15] MEDS: HYDROCORTISONE 10 MG TAB PO SCH ×2 (08:30→20:23)
[2019-02-15] MEDS: levOCARNitine (WITH SUGAR) 100 MG/ML BOTTLE PO SCH ×3 (08:31→17:41)
[2019-02-15] MEDS: BRIMONIDINE TARTRATE 0.2% DROPS 5 ML BTL BOTH EYES SCH ×2 (08:31→20:23)
[2019-02-15] MEDS: NON FORMULARY DRUG (Prorenal + D 1 TAB) PO SCH (08:31)
[2019-02-15] MEDS: TIMOLOL 0.5% OPHTH DROPS 5 ML BTL BOTH EYES SCH (08:31)
[2019-02-15] MEDS: PIPERACILLIN-TAZOBACTAM 3.375 GM in SODIUM CHLORIDE 0.9% 100 ML IVPB SCH ×2 (08:37→20:10)
[2019-02-15 08:41] LABS: INR 2.3 (<1.2); Prothrombin Time 22.3 sec (9.0-12.0)
[2019-02-15] MEDS: IPRATROPIUM-ALBUTEROL 3 ML NEB INHALATION SCH ×3 (09:14→19:23)
[2019-02-15] MEDS: FORMOTEROL FUMARATE 20 MCG/2 ML NEBU INHALATION SCH ×2 (09:14→19:23)
[2019-02-15] MEDS: BUDESONIDE 1 MG/2 ML NEBU INHALATION SCH ×2 (09:14→19:23)
--- NOTE | 2019-02-15 10:47 | P.PN ---
Subjective Progress Note Date: 02/15/19 Principal diagnosis: Acute exacerbation of systolic congestive heart failure. This is a 83-year-old white male patient who follows with Dr. Peoples for primary care services, has a past medical history of end-stage renal disease on hemodialysis on Wednesday basis, chronic atrial fibrillation on Coumadin, COPD, hypertension, hyperlipidemia, recurrent pleural effusions, with past history of thoracentesis, with negative pathology. Patient's was recent echocardiogram revealed moderate concentric left ventricular hypertrophy with mildly impaired left ventricular systolic function and EF of 45-50%. Did not show significant valvular disease. Patient was recently hospitalized in January for difficulty breathing related to left pleural effusion and atelectasis, following a fall at home. Ultrasound of the chest at that time did not show significant fluid pocket, no showed for 0.3 cm pocket on the left. He was medically managed, and discharged home on 01/25/2019. On 02/07/2019 patient was brought in to the emergency department, after choking episode, he was apparently at his son's house, and started choking, he apparently started passing out, and his son gave him a Heimlich maneuver with successful removal of food products. Following that they both fell down, did strike his head. He sustained abrasions on the right hand and left arm. Brain CT in the emergency department showed age-related atrophic and chronic small vessel ischemic changes without acute intracranial process. Chest x-ray showed left lower lobe atelectasis and pleural effusion, infiltrate could not be excluded, pulmonary venous congestion without overt heart failure. Admission blood work showed normal white count of 5.3, hemoglobin of 10.8, INR was 4.3, sodium was 135, potassium is 5.2, chloride was 94, CO2 is 31, BUN is 56, creatinine is 4.15, proBNP was elevated at 79,000, urinalysis without evidence of infection. he was started on empiric antibiotics in the form of Zosyn, he has received some intermittent doses of Lasix, and he is on maintenance dose of Lasix 60 mg twice daily. Been experiencing intermittent hypotension, however urine and serum cortisone level was 14, consistent with relative adrenal insufficiency, he was started on hydrocortisone. In addition he is on midodrine. Today's chest x-ray shows shifting multifocal airspace disease, li jaziel representing atelectasis with fluid overload on the basis of congestive heart failure with the mild interstitial edema and trace right pleural effusion and moderate left neural effusion, however the possibility of underlying infectious process could not be ruled out. The patient is seen today 02/14/2019 in follow-up on the regular medical floor. He is currently awake and alert in no acute distress. He is maintaining good O2 saturations in the 90s on 2 L/m per nasal cannula. He remains on DuoNeb inhalations, Pulmicort and Perforomist inhalations, IV Zosyn. Quite elated on warfarin. INR 2.7. Chest x-ray showing confluent edema, atelectasis versus aspiration pneumonia based on deep penetration on a recent modified barium swallow exam. Left midlung new speculated density likely representing atelectasis. There is slight improvement in the fluid overload with persistent trace right loculated pleural effusion and small left pleural effusion. Currently on Lasix 60 mg twice a day. The patient is seen today 02/15/2019 in follow-up on the regular medical floor. He is currently resting comfortably in bed. Awake and alert in no acute distress. Receiving hemodialysis. INR 2.3. He remains on DuoNeb inhalations, Pulmicort and Perforomist inhalations, IV Zosyn. Oral diuretics. He is maintaining O2 saturations in the 90s on room air. He's been afebrile. Objective - Vital Signs Vital signs: Vital Signs Temp 97.6 F 02/15/19 05:00 Pulse 82 02/15/19 09:35 Resp 16 02/15/19 05:00 BP 95/55 02/15/19 05:00 Pulse Ox 94 L 02/15/19 05:00 Intake & Output 02/14/19 02/15/19 02/15/19 18:59 06:59 18:59 Intake Total 20 Output Total 100 Balance -80 Intake: Intake, IV Titration 20 Amount Sodium Chloride 0.9% 1, 20 000 ml @ 20 mls/hr IV . Q24H [facility] Rx#:[id number] Output: Urine 100 Other: Voiding Method Toilet Toilet Urinal Urinal # Voids 2 - Exam GENERAL EXAM: Alert, pleasant, 83-year-old male patient, on room air, with facial bruising at different stages of healing, mostly fading over left eye, on the forehead, comfortable in no apparent distress. HEAD: Normocephalic/atraumatic. EYES: Normal reaction of pupils, equal size. Conjunctiva pink, sclera white. NOSE: Clear with pink turbinates. THROAT: No erythema or exudates. NECK: No masses, no JVD, no thyroid enlargement, no adenopathy. CHEST: No chest wall deformity. Symmetrical expansion. LUNGS: Equal air entry with scattered wheezing, few scattered rhonchi. CVS: Regular rate and rhythm, normal S1 and S2, no gallops, no murmurs, no rubs ABDOMEN: Soft, nontender. No hepatosplenomegaly, normal bowel sounds, no guarding or rigidity. EXTREMITIES: No clubbing, no cyanosis, 2+ pulses and upper and lower ex tremities. Right arm fistula with positive bruit and thrill. Right arm swelling, laceration on the right wrist covered with a dressing MUSCULOSKELETAL: Muscle strength and tone normal. SPINE: No scoliosis or deformity SKIN: No rashes CENTRAL NERVOUS SYSTEM: No focal deficits, tone is normal in all 4 extremities. PSYCHIATRIC: Alert and oriented -3. Appropriate affect. Intact judgment and insight. - Labs CBC & Chem 7: 02/13/19 07:20 02/13/19 07:20 Labs: Abnormal Lab Results - Last 24 Hours (Table) 02/15/19 Range/Units 07:21 PT 22.3 H (9.0-12.0) sec INR 2.3 H (<1.2) Assessment and Plan Assessment: Assessment: #1. Dyspnea related to acute exacerbation of congestive heart failure with mildly impaired systolic function and EF of 45-50% #2. Doubt pneumonia although infectious process cannot entirely be ruled, related to aspiration. On Zosyn. #3. Acute exacerbation of chronic obstructive pulmonary disease #5. Episode of aspiration, and syncope, requiring Heimlich maneuver with successful removal of the food. #6. End-stage renal disease on hemodialysis #7. Chronic atrial fibrillation on Coumadin #8. Fall at home following the aspiration episode #9. Injury to the right wrist and right hand sustained in the fall and x-ray of the wrist and hand were negative for fracture #10. Syncopal episode at home following the choking episode brain CTs were negative 2 #11. Recent admission for a fall, left-sided pleural effusion #12. Gait dysfunction #13. History of left-sided thoracentesis with the bloody effusion, and negative pathology #14. Retention #15. Hyperlipidemia #16. Former smoker Plan: The patient was seen and evaluated by Dr. Horton. He is currently on Zosyn that could be switched to Augmentin. Continue bronchodilators. Continue diuretics. Home once cleared medically. Follow-up in our office in 1-2 weeks' time. He is encouraged to call sooner with any recurrence of symptoms or other questions or concerns. I, the cosigning physician, performed a history & physical examination of the patient. Lungs sounds few scattered rhonchi, end expiratory wheeze. Maintaining good O2 saturations in the 90s on room air. I discussed the assessment and plan of care with my nurse practitioner, Charity Diallo. I attest to the above note as dictated by her.
[2019-02-15] MEDS: SODIUM CHLORIDE 0.9% 1,000 ML IV SCH (17:41)
[2019-02-15] MEDS ORDERED: WARFARIN 2.5 MG TAB PO ONE (18:00)
--- NOTE | 2019-02-15 19:07 | P.PN ---
Subjective This is a pleasant 83 years old female with past medical history of atrial fibrillation, COPD, hypertension, hyperlipidemia, end-stage renal disease on hemodialysis. She presents because of syncope and fall hitting her head. As inpatient with family at bedside he was at the restaurant and he choked with a piece of [place] and he managed to spit it out however eventually passed out as a result, he fell and hit his head. Patient has multiple bruises and wounds on his forehead and cheeks, his wounds are closed and bleeding has stopped, also he has another wound in his right hand which is controlled and dressing is in place. He's undergoing chronic dyspnea and chronic cough with clear phlegm. Patient states that he has chronic problem with swallowing for many months. Patient denies chest pain or abdominal pain, no change in bowel habits, no diarrhea. Patient makes little amount of urine but without dysuria On admission she was hypotensive with blood pressure 87/69, she was afebrile and heart rate in 80S, his oxygen saturation is in 99% on room air. Hemoglobin 10.8, WBC and platelets are within normal limits, INR is supratherapeutic with 4.3. Creatinine is 4.1, compared to [facility] baseline of 3.0-4.2. Potassium 5.2, sodium 135[place] [address]. Liver enzymes are not elevated. EKG showed atrial fibrillation at [address]-T changes, chest x-ray: Left lower lobe atelectasis versus pleural effusion and consolidation cannot be excluded. Pulmonary venous congestion. CT of the brain showing atrophic changes without acute intracranial process Cardiology team already is been consulted by emergency room team 02/08/2019 Mónica is awake, however his more sleepy, easily arousable. He denies headache or chest pain or dyspnea. His wounds are covered. Blood pressure is 97/62. Saturating 95% on 2 L. Labs showing stable hemoglobin of 10.8, WBC 6.3K, INR is trending down to 3.8, sodium 136, potassium 5.4, and creatinine 4.6. Urinalysis is not suspicious for infection. Computed tomography scan of the head is ordered stat to reassess possibility of bleeding although he has negative CAT scan yesterday, results are still pending. We'll check swallow evaluation, wound consult is appreciated and fully recommendation. Patient to continue on medial drain, keep holding Coumadin. Physical therapy is pending 02/09/2019 Patient is more awake and alert, he denies chest pain. He denies coughing. He is afebrile and with no leukocytosis however he still a bit short of breath and blood pressure on the low side and repeat chest x-ray showing slight improvement in his possible pneumonia, therefore we will keep the patient in the hospital today and keep his Zosyn for possible aspiration pneumonia. Swallow evaluation is appreciated and they recommended Dysphagia III (chopped) texture diet with thin liquids via cup only would be most appropriate at this time. ( no straws), discussed with staff to change diet. Patient was on a wait-list for outpt dysphagia therapy. His INR today is came back to 2.6. We'll restart Coumadin pharmacy to dose. Patient mental status came back to baseline, no need for neurology evaluation for that. Nephrology R following the case and he status post hemodialysis yesterday. His blood pressure on the low side and swelling will keep the patient in the hospital for monitoring while he was taking midodrine. 02/13/2019 Patient lying in bed comfortable. He denies chest pain or dyspnea. His breathing quietly. Vital signs stable, blood pressure is persistently low normal side and currently 95/68, while he's on medodrain and cortisone replacement therapy. Labs show a stable leukocytosis, stable hemoglobin, platelets improvement to 115K, INR is stable at 2.3 while he is on Coumadin. Creatinine 5.2. Chest x-ray from 2 days ago, showing increased opacif ication/consolidation in the left lower lung lobe. His x-ray: Repeat chest x-ray from today is still pending Patient currently is nothing by mouth pending for reevaluation by swallow team, although last time they recommended recommended Dysphagia III (chopped) texture diet with thin liquids via cup only would be most appropriate at this time. ( no straws), Patient might benefit from ECF for rehab upon discharge. 02/15/2019 pt is clinically looks better , more strong today , his breathing is improving ,pt remains on zosyn for now. pt is medically stable for discharge pending placement Objective - Vital Signs Vital signs: Vital Signs Temp 97.8 F 02/15/19 12:48 Pulse 81 02/15/19 12:48 Resp 18 02/15/19 12:48 BP 99/57 02/15/19 12:48 Pulse Ox 94 L 02/15/19 12:48 Intake & Output 02/15/19 02/15/19 02/16/19 06:59 18:59 06:59 Intake Total 20 260 Output Total 100 1999 Balance -80 -1740 Intake: Intake, IV Titration 20 260 Amount Piperacillin-Tazobactam 3 100 .375 gm In Sodium Chloride 0.9% 100 ml @ 25 mls/hr IVPB Q12H [facility] Rx# :[id number] Sodium Chloride 0.9% 1, 20 160 000 ml @ 20 mls/hr IV . Q24H [facility] Rx#:[id number] Output: Urine 100 Hemodialysis 1999 Other: Voiding Method Toilet Toilet Urinal Urinal # Voids 2 # Bowel Movements 1 - Exam -GENERAL: The patient is alert and oriented x3, however patient is more sleepy today -HEENT: Pupils are round and equally reacting to light. EOMI. No scleral icterus. No conjunctival pallor. Normocephalic, atraumatic. No pharyngeal erythema. No thyromegaly. Multiple lipomas on the cheeks with wants on the forehead,x2, closed with no bleeding CARDIOVASCULAR: S1 and S2 present. No murmurs, rubs, or gallops. PULMONARY: Chest is clear to auscultation, no wheezing or crackles. ABDOMEN: Soft, nontender, nondistended, normoactive bowel sounds. No palpable organomegaly. MUSCULOSKELETAL: No joint swelling or deformity. -EXTREMITIES: No cyanosis, clubbing, or pedal edema. Closed Wound on the right hand with a bruise. Dressing is in place NEUROLOGICAL: Gross neurological examination did not reveal any focal deficits. SKIN: No rashes. No petechiae - Labs CBC & Chem 7: 02/13/19 07:20 02/13/19 07:20 Labs: Abnormal Lab Results - Last 24 Hours (Table) 02/15/19 Range/Units 07:21 PT 22.3 H (9.0-12.0) sec INR 2.3 H (<1.2) Assessment and Plan Assessment: Syncope , mostly vasovagal syncope associated with choking. Difficulty swallowing. On dysphagia diet pulmonary congestion with left lower lung suspicious for pneumonia, present on admission. Mostly related to aspiration pneumonia. Chronic bronchitis with chronic cough and dyspnea. Patient has COPD, does not look in acute exacerbation coagulopathy secondary to Coumadin. Improved Fall with head trauma End-stage kidney disease on hemodialysis Chronic atrial fibrillation on Coumadin Hyperlipidemia Plan: This is a pleasant 83 years old male who presents with syncope, coagulopathy and mostly aspiration pneumonia. Continue with Zosyn. Keep monitoring blood pressure, continue with midodrine. 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 Restart Coumadin pharmacy to dose and follow up INR. Ask for physical therapy evaluation. Follow-up chest x-ray. Patient might benefit from ECF placement upon discharge Labs and medication were reviewed.. Continue same treatment. Continue with symptomatic treatment. Resume home medication. Monitor lytes and vitals. DVT and GI prophylaxis. Further recommendations of the clinical course of the patient DVT prophylaxis: Coumadine GI Prophylaxis: Pepcid PT/OT: Recommend LOREN Prognosis is guarded
--- NOTE | 2019-02-15 20:10 | PN ---
PROGRESS NOTE Patient is seen for followup for end-stage renal disease. He is currently seen on hemodialysis. Patient is tolerating his treatment well. We are going for about 2.5 L. His blood pressure systolic is about 97 to 98 mmHg. Patient denies any complaints. He is afebrile. Heart rate about 80 per minute. EXAMINATION OF THE HEART: S1 and S2. EXAMINATION OF LUNGS: Bilateral breath sounds are heard. ABDOMEN: Soft, non-tender. Examination of lower extremities shows no significant edema. [employer] exam is grossly intact. LABS FROM 02/13/2019: Potassium was 5.0. ASSESSMENT: 1. End-stage renal disease, on hemodialysis on a Wednesday, Wednesday, Wednesday schedule. 2. Status post fall, most likely from hypotension. 3. Hypotension, maintained on midodrine with an element of possible adrenal insufficiency, started on Cortef this admission. 4. Volume overload. Expect improvement post dialysis. 5. Chronic kidney disease mineral bone disorder. 6. Acute exacerbation of chronic obstructive pulmonary disease. 7. Chronic atrial fibrillation, maintained on Coumadin. PLAN: Patient can be discharged from nephrology standpoint. He will resume his hemodialysis on a Wednesday, Wednesday, Wednesday schedule as outpatient. MMODL / IJN: [id number] /
[2019-02-15 20:23] VITALS: RESP 16
[2019-02-15] MEDS: ALLOPURINOL 100 MG TAB PO SCH (20:23)
[2019-02-15] MEDS: PRAVASTATIN SODIUM 20 MG TAB PO SCH (20:23)
[2019-02-15] MEDS: DOXEPIN 10 MG CAP PO SCH (20:23)
[2019-02-16 05:24] VITALS: BP 97/56; TEMP 97.7
[2019-02-16] MEDS: FORMOTEROL FUMARATE 20 MCG/2 ML NEBU INHALATION SCH (07:31)
[2019-02-16] MEDS: BUDESONIDE 1 MG/2 ML NEBU INHALATION SCH (07:31)
[2019-02-16] MEDS: IPRATROPIUM-ALBUTEROL 3 ML NEB INHALATION SCH ×2 (07:31→13:22)
[2019-02-16] MEDS: GABAPENTIN 100 MG CAP PO SCH (07:46)
[2019-02-16] MEDS: FAMOTIDINE 20 MG TAB PO SCH (07:46)
[2019-02-16] MEDS: BRIMONIDINE TARTRATE 0.2% DROPS 5 ML BTL BOTH EYES SCH (07:46)
[2019-02-16] MEDS: MIDODRINE 5 MG TAB PO SCH ×2 (07:46→12:19)
[2019-02-16] MEDS: TAMSULOSIN 0.4 MG CAP.ER.24H PO SCH (07:46)
[2019-02-16] MEDS: FUROSEMIDE 20 MG TAB PO SCH (07:46)
[2019-02-16] MEDS: CARBIDOPA-LEVODOPA 25-100 MG 1 EACH TAB PO SCH (07:46)
[2019-02-16] MEDS: HYDROCORTISONE 10 MG TAB PO SCH (07:46)
[2019-02-16] MEDS: levOCARNitine (WITH SUGAR) 100 MG/ML BOTTLE PO SCH ×2 (07:47→12:19)
[2019-02-16] MEDS: NON FORMULARY DRUG (Prorenal + D 1 TAB) PO SCH (07:53)
[2019-02-16 08:04] LABS: INR 1.7 (<1.2)
[2019-02-16] MEDS: TIMOLOL 0.5% OPHTH DROPS 5 ML BTL BOTH EYES SCH (08:28)
--- NOTE | 2019-02-16 10:35 | P.PN ---
Subjective Progress Note Date: 02/16/19 Principal diagnosis: Acute exacerbation of systolic congestive heart failure. This is a 83-year-old white male patient who follows with Dr. Peoples for primary care services, has a past medical history of end-stage renal disease on hemodialysis on Wednesday basis, chronic atrial fibrillation on Coumadin, COPD, hypertension, hyperlipidemia, recurrent pleural effusions, with past history of thoracentesis, with negative pathology. Patient's was recent echocardiogram revealed moderate concentric left ventricular hypertrophy with mildly impaired left ventricular systolic function and EF of 45-50%. Did not show significant valvular disease. Patient was recently hospitalized in January for difficulty breathing related to left pleural effusion and atelectasis, following a fall at home. Ultrasound of the chest at that time did not show significant fluid pocket, no showed for 0.3 cm pocket on the left. He was medically managed, and discharged home on 01/25/2019. On 02/07/2019 patient was brought in to the emergency department, after choking episode, he was apparently at his son's house, and started choking, he apparently started passing out, and his son gave him a Heimlich maneuver with successful removal of food products. Following that they both fell down, did strike his head. He sustained abrasions on the right hand and left arm. Brain CT in the emergency department showed age-related atrophic and chronic small vessel ischemic changes without acute intracranial process. Chest x-ray showed left lower lobe atelectasis and pleural effusion, infiltrate could not be excluded, pulmonary venous congestion without overt heart failure. Admission blood work showed normal white count of 5.3, hemoglobin of 10.8, INR was 4.3, sodium was 135, potassium is 5.2, chloride was 94, CO2 is 31, BUN is 56, creatinine is 4.15, proBNP was elevated at 79,000, urinalysis without evidence of infection. he was started on empiric antibiotics in the form of Zosyn, he has received some intermittent doses of Lasix, and he is on maintenance dose of Lasix 60 mg twice daily. Been experiencing intermittent hypotension, however urine and serum cortisone level was 14, consistent with relative adrenal insufficiency, he was started on hydrocortisone. In addition he is on midodrine. Today's chest x-ray shows shifting multifocal airspace disease, li jaziel representing atelectasis with fluid overload on the basis of congestive heart failure with the mild interstitial edema and trace right pleural effusion and moderate left neural effusion, however the possibility of underlying infectious process could not be ruled out. The patient is seen today 02/14/2019 in follow-up on the regular medical floor. He is currently awake and alert in no acute distress. He is maintaining good O2 saturations in the 90s on 2 L/m per nasal cannula. He remains on DuoNeb inhalations, Pulmicort and Perforomist inhalations, IV Zosyn. Quite elated on warfarin. INR 2.7. Chest x-ray showing confluent edema, atelectasis versus aspiration pneumonia based on deep penetration on a recent modified barium swallow exam. Left midlung new speculated density likely representing atelectasis. There is slight improvement in the fluid overload with persistent trace right loculated pleural effusion and small left pleural effusion. Currently on Lasix 60 mg twice a day. The patient is seen today 02/15/2019 in follow-up on the regular medical floor. He is currently resting comfortably in bed. Awake and alert in no acute distress. Receiving hemodialysis. INR 2.3. He remains on DuoNeb inhalations, Pulmicort and Perforomist inhalations, IV Zosyn. Oral diuretics. He is maintaining O2 saturations in the 90s on room air. He's been afebrile. Patient is seen today 02/16/2019 in follow-up on the regular medical floor. He is currently sitting up at the bedside. Awake and alert in no acute distress. Feeling better today as compared to yesterday. Maintaining good O2 saturations in the upper 90s on room air. He remains on DuoNeb inhalations, Symbicort, site Cortef. Objective - Vital Signs Vital signs: Vital Signs Temp 97.7 F 02/16/19 05:00 Pulse 84 02/16/19 07:54 Resp 16 02/16/19 05:00 BP 97/56 02/16/19 05:00 Pulse Ox 97 02/16/19 07:31 Intake & Output 02/15/19 02/16/19 02/16/19 18:59 06:59 18:59 Intake Total 260 590 Output Total 1999 Balance -1740 590 Intake: Intake, IV Titration 260 Amount Piperacillin-Tazobactam 3 100 .375 gm In Sodium Chloride 0.9% 100 ml @ 25 mls/hr IVPB Q12H [facility] Rx# :[id number] Sodium Chloride 0.9% 1, 160 000 ml @ 20 mls/hr IV . Q24H [facility] Rx#:[id number] Oral 590 Output: Hemodialysis 1999 Other: Voiding Method Toilet Toilet Toilet Urinal Urinal Urinal # Voids 2 1 # Bowel Movements 1 - Exam GENERAL EXAM: Alert, 83-year-old male patient, on room air, with facial bruising at different stages of healing, HEAD: Normocephalic. EYES: Normal reaction of pupils, equal size. Conjunctiva pink, sclera white. NOSE: Clear with pink turbinates. THROAT: No erythema or exudates. NECK: No masses, no JVD, no thyroid enlargement, no adenopathy. CHEST: No chest wall deformity. Symmetrical expansion. LUNGS: Equal air entry with scattered wheezing, few scattered rhonchi. CVS: Regular rate and rhythm, normal S1 and S2, no gallops, no murmurs, no rubs ABDOMEN: Soft, nontender. No hepatosplenomegaly, normal bowel sounds, no guarding or rigidity. EXTREMITIES: No clubbing, no cyanosis, 2+ pulses and upper and lower extremities. Right arm fistula with positive bruit and thrill. Right arm swelling, laceration on the right wrist covered with a dressing MUSCULOSKELETAL: Muscle strength and tone normal. SPINE: No scoliosis or deformity SKIN: No rashes CENTRAL NERVOUS SYSTEM: No focal deficits, tone is normal in all 4 extremities. PSYCHIATRIC: Alert and oriented -3. Appropriate affect. Intact judgment and insight. - Labs CBC & Chem 7: 02/13/19 07:20 02/13/19 07:20 Labs: Abnormal Lab Results - Last 24 Hours (Table) 02/16/19 Range/Units 07:21 PT 17.0 H (9.0-12.0) sec INR 1.7 H (<1.2) Assessment and Plan Assessment: Assessment: #1. Dyspnea related to acute exacerbation of congestive heart failure with mildly impaired systolic function and EF of 45-50% #2. Doubt pneumonia although infectious process cannot entirely be ruled, related to aspiration. On Zosyn. #3. Acute exacerbation of chronic obstructive pulmonary disease #5. Episode of aspiration, and syncope, requiring Heimlich maneuver with successful removal of the food. #6. End-stage renal disease on hemodialysis #7. Chronic atrial fibrillation on Coumadin #8. Fall at home following the aspiration episode #9. Injury to the right wrist and right hand sustained in the fall and x-ray of the wrist and hand were negative for fracture #10. Syncopal episode at home following the choking episode brain CTs were negative 2 #11. Recent admission for a fall, left-sided pleural effusion #12. Gait dysfunction #13. History of left-sided thoracentesis with the bloody effusion, and negative pathology #14. Retention #15. Hyperlipidemia #16. Former smoker Plan: The patient was seen and evaluated by Dr. Horton. He is cleared for discharge from the pulmonary standpoint. Continue bronchodilators and Symbicort. I, the cosigning physician, performed a history & physical examination of the patient. Lungs sounds few scattered rhonchi, end expiratory wheeze. Maintaining good O2 saturations in the 90s on room air. I discussed the assessment and plan of care with my nurse practitioner, Charity Diallo. I attest to the above note as dictated by her.
--- NOTE | 2019-02-16 11:36 | P.DS ---
Providers Date of admission: 02/09/19 13:49 Attending physician: Aura More Consults: 02/07/19 18:31 Consult Physician Urgent Consulting Provider: Vaibhav Ortiz Consult Reason/Comments: copd, abn cxr Do you want consulting provider notified?: Yes Consult Physician Urgent Consulting Provider: Katie Gastelum Consult Reason/Comments: HD Do you want consulting provider notified?: Yes Primary care physician: Vaibhav Ortiz Hospital Course: Diagnoses: Syncope , mostly vasovagal syncope associated with choking. Difficulty swallowing. On dysphagia diet pulmonary congestion with left lower lung suspicious for pneumonia, present on admission. Mostly related to aspiration pneumonia. Relative to general insufficiency, steroids was started Chronic bronchitis with chronic cough and dyspnea. Patient has COPD, does not look in acute exacerbation Chronic systolic heart failure with possible acute exacerbation, ejection fraction 45-50% coagulopathy secondary to Coumadin. Improved Fall with head trauma End-stage kidney disease on hemodialysis Chronic atrial fibrillation on Coumadin Low-normal blood pressure, on midodrine and Cortef. Hyperlipidemia Hospital course: This is a pleasant 83 years old female with past medical history of atrial fibrillation, COPD, hypertension, hyperlipidemia, end-stage renal disease on hemodialysis. She presents because of syncope and fall hitting her head. As inpatient with family at bedside he was at the restaurant and he choked with a piece of [place] and he managed to spit it out however eventually passed out as a result, he fell and hit his head. Patient has multiple bruises and wounds on his forehead and cheeks, his wounds are closed and bleeding has stopped, also he has another wound in his right hand which is controlled and dressing is in place. For concerns of his swallowing patient underwent swallow evaluation and patient recommended to have Dysphagia III (chopped) texture diet with thin liquids via cup only would be most appropriate at this time. ( no straws). Patient also was treated with antibiotics for possible aspiration pneumonitis. On admission his INR was supratherapeutic, his dose for his Coumadin was adjusted and INR was therapeutic for the last few days prior to discharge. Patient will continue with Coumadin for his adjuvant fibrillation on discharge. Nephrology were following the patient for hemodialysis for his end-stage renal disease. Also, Bita was admitted for relative adrenal insufficiency. With therapy patient showed interval improvement and back close to his baseline. On the day of discharge she denies chest pain or dyspnea. No dizziness. No change in urine or bowel habits. Due to his generalized weakness, physical therapy evaluation recommended subacute rehab , patient agrees to go to rehab. Patient will be discharged on a slightly lower dose of Coumadin at 2.5 mg daily, he needs to check his INR every 2-3 days to keep INR goal of 2-3. Patient was cleared for discharge by all consults once including pulmonary and nephrology Problems and management plan were discussed with the patient and he verbalized understanding and acceptance Patient was found stable and can be discharged home however he needs follow-up as an outpatient. Patient was instructed to follow up with PCP within one week and patient agrees. Patient also instructed to follow up with pulmonary service in 1-2 weeks to check his chest x-ray and he agrees as well Gen: patient is a AAOx3, no distress. Multiple face wounds 100 and wounds are improving, very clean and closed. Generally weak CVS: S1-S2, RRR, no murmur Lungs: B/L CTA, no wheezing Abdomen: soft, no distention, no tenderness, positive bowel sounds Extremity: no leg edema or induration Time spent more than 35 minutes Plan - Discharge Summary Discharge Rx Participant: No New Discharge Prescriptions: New Amoxic-Pot Clav 875-125Mg [Augmentin 875-125] 1 tab PO Q12HR #14 tablet Docusate [Colace] 100 mg PO BID PRN cap PRN Reason: Constipation Hydrocortisone [Cortef] 10 mg PO BID tab Warfarin [Coumadin] 2.5 mg PO DAILY #30 tab Ipratropium-Albuterol Nebulize [Duoneb 0.5 mg-3 mg/3 ml Soln] 3 ml INHALATION RT-TID ampul.neb guaiFENesin [Mucinex] 600 mg PO Q12HR PRN tablet.er PRN Reason: Cough Formoterol Fumarate [Perforomist] 20 mcg INHALATION RT-BID nebu Budesonide [Pulmicort] 1 mg INHALATION RT-BID nebu Continue Brimonidine Tartrate [Alphagan P 0.1% Ophth Soln] 1 drop BOTH EYES BID Timolol 0.5% Ophth Soln [Timoptic 0.5% Ophth Soln] 1 drop BOTH EYES DAILY rOPINIRole HCL [Requip] 4 mg PO TID Allopurinol [Zyloprim] 100 mg PO HS Tamsulosin HCl [Flomax] 0.4 mg PO BID Midodrine [ProAmatine] 10 mg PO AC-TID #180 tab Pravastatin Sodium [Pravachol] 20 mg PO HS Furosemide [Lasix] 60 mg PO BID Carbidopa-Levodopa 25-100 mg [Sinemet 25-100 mg] 1 tab PO BID Prorenal + D 1 tab PO DAILY Doxepin [SINEquan] 10 mg PO HS levOCARNitine [Levocarnitine] 330 mg PO TID-W/MEALS Gabapentin [Neurontin] 100 mg PO TID Albuterol Nebulized [Ventolin Nebulized] 2.5 mg INHALATION TID Discontinued Warfarin [Coumadin] 2.5 - 5 mg PO DIRECTED Discharge Medication List Brimonidine Tartrate [Alphagan P 0.1% Ophth Soln] 1 drop BOTH EYES BID 12/10/14 [History] Timolol 0.5% Ophth Soln [Timoptic 0.5% Ophth Soln] 1 drop BOTH EYES DAILY 12/11/14 [History] Allopurinol [Zyloprim] 100 mg PO HS 12/27/17 [History] rOPINIRole HCL [Requip] 4 mg PO TID 12/27/17 [History] Tamsulosin HCl [Flomax] 0.4 mg PO BID 01/24/18 [History] Midodrine [ProAmatine] 10 mg PO AC-TID #180 tab 01/31/18 [Rx] Pravastatin Sodium [Pravachol] 20 mg PO HS 10/04/18 [History] Carbidopa-Levodopa 25-100 mg [Sinemet 25-100 mg] 1 tab PO BID 01/24/19 [History] Doxepin [SINEquan] 10 mg PO HS 01/24/19 [History] Furosemide [Lasix] 60 mg PO BID 01/24/19 [History] Prorenal + D 1 tab PO DAILY 01/24/19 [History] levOCARNitine [Levocarnitine] 330 mg PO TID-W/MEALS 01/24/19 [History] Albuterol Nebulized [Ventolin Nebulized] 2.5 mg INHALATION TID 02/07/19 [History] Gabapentin [Neurontin] 100 mg PO TID 02/07/19 [History] Amoxic-Pot Clav 875-125Mg [Augmentin 875-125] 1 tab PO Q12HR #14 tablet 02/15/19 [Rx] Budesonide [Pulmicort] 1 mg INHALATION RT-BID nebu 02/15/19 [Rx] Docusate [Colace] 100 mg PO BID PRN cap 02/15/19 [Rx] Formoterol Fumarate [Perforomist] 20 mcg INHALATION RT-BID nebu 02/15/19 [Rx] Hydrocortisone [Cortef] 10 mg PO BID tab 02/15/19 [Rx] Ipratropium-Albuterol Nebulize [Duoneb 0.5 mg-3 mg/3 ml Soln] 3 ml INHALATION RT-TID ampul.neb 02/15/19 [Rx] Warfarin [Coumadin] 2.5 mg PO DAILY #30 tab 02/15/19 [Rx] guaiFENesin [Mucinex] 600 mg PO Q12HR PRN tablet.er 02/15/19 [Rx] Follow up Appointment(s)/Referral(s): Vaibhav Ortiz MD [Primary Care Provider] - 02/21/19 1:15 pm [facility], [NON-STAFF] - 1-2 Days (will call to set up schedual. If any questions please contact agency) Activity/Diet/Wound Care/Special Instructions: diet recommendations: Dysphagia III (chopped) texture diet with thin liquids via cup only would be most appropriate at this time. ( no straws) Pt was on a wait-list for outpt dysphagia therapy which was to include adjunctive NMES please adjust dose of coumadin as per INR, every 2-3 days ( he was taking little more coumadine at home but dose was lowered for supratherapeutic INR on admission ) new dose was started Discharge Disposition: TRANSFER TO SNF/ECF
[2019-02-16 13:25] VITALS: PULSE 82
--- NOTE | 2019-02-16 16:28 | PN ---
PROGRESS NOTE Patient is seen for followup for end-stage renal disease. He is status post hemodialysis yesterday; currently awaiting discharge to rehab. No major complaints today. On examination, blood pressure was 97/56, heart rate 85 per minute. Patient is afebrile. EXAMINATION OF THE HEART: S1 and S2. EXAMINATION OF LUNGS: Bilateral breath sounds are heard. ABDOMEN: Soft, non-tender. Examination of lower extremities shows edema 1+ bilaterally. Labs from 02/13/2019 show sodium 137, potassium 5.0. ASSESSMENT: 1. End-stage renal disease, on hemodialysis on a Wednesday, Wednesday, Wednesday schedule. 2. Mild volume overload, status post dialysis yesterday, currently improved. 3. Hypotension, started on Cortef. Patient is also maintained on midodrine, which we will continue. 4. Dyslipidemia. 5. Atrial fibrillation, maintained on Coumadin. PLAN: Hemodialysis in a.m. If patient is discharged today, he will follow up tomorrow as outpatient for his regular hemodialysis. MMODL / IJN: [id number] /
[2019-02-16] MEDS ORDERED: WARFARIN 2 MG TAB PO ONE (18:00)
[2019-02-16] MEDS ORDERED: SYMBICORT 160-4.5 MCG INHALER INHALATION SCH (20:00)
== END 2019-02-16 15:35 | DRG 177 ==
LOC: EC 13:57 → 3NMEDONC 16:40 → OBSVTOIN 02-09 13:49 → 3NMEDONC 02-13 04:54
PROVIDERS: ADMIT Hospitalist; ATTEND Hospitalist
PROC: 0HQ1XZZ Repair Face Skin, External Approach (ICD-10-PCS; principal; 2019-02-07)
PROC: 5A1D70Z Performance of Urinary Filtration, Intermittent, Less than 6 Hours Per Day (ICD-10-PCS; 2019-02-08)
DX: J69.0 Pneumonitis due to inhalation of food and vomit (principal); N18.6 End stage renal disease; I50.23 Acute on chronic systolic (congestive) heart failure; I13.2 Hypertensive heart and chronic kidney disease with heart failure and with stage 5 chronic kidney disease, or end stage renal disease; I42.9 Cardiomyopathy, unspecified; J98.11 Atelectasis; E27.40 Unspecified adrenocortical insufficiency; I48.20 Chronic atrial fibrillation, unspecified; I95.89 Other hypotension; E87.5 Hyperkalemia; E83.9 Disorder of mineral metabolism, unspecified; J44.9 Chronic obstructive pulmonary disease, unspecified; R13.10 Dysphagia, unspecified; D63.8 Anemia in other chronic diseases classified elsewhere; S01.81XA Laceration without foreign body of other part of head, initial encounter; S51.012A Laceration without foreign body of left elbow, initial encounter; S60.511A Abrasion of right hand, initial encounter; E78.5 Hyperlipidemia, unspecified; R79.1 Abnormal coagulation profile; T45.515A Adverse effect of anticoagulants, initial encounter; H35.30 Unspecified macular degeneration; H40.9 Unspecified glaucoma; R26.9 Unspecified abnormalities of gait and mobility; Z91.81 History of falling; Z79.01 Long term (current) use of anticoagulants; Z79.899 Other long term (current) drug therapy; Z99.2 Dependence on renal dialysis; Z87.891 Personal history of nicotine dependence; Z82.5 Family history of asthma and other chronic lower respiratory diseases; Z98.890 Other specified postprocedural states; Z82.49 Family history of ischemic heart disease and other diseases of the circulatory system; Z80.9 Family history of malignant neoplasm, unspecified; W18.39XA Other fall on same level, initial encounter; Y92.009 Unspecified place in unspecified non-institutional (private) residence as the place of occurrence of the external cause
CPT/HCPCS: 12013; 36415; 70450; 71045; 71046; 74230; 80048; 80053; 81001; 82024; 82533; 83880; 85025; 85610; 85730; 90935; 93005; 94640; 94760; 99285

== ENCOUNTER 2019-02-28 10:55 | Inpatient (IN) | payer MEDICARE ==
[2019-02-28] MEDS ORDERED: IPRATROPIUM 0.5 MG/2.5 ML NEBU INHALATION STA (12:08)
[2019-02-28] MEDS ORDERED: ALBUTEROL NEBULIZED 2.5 MG/3 ML INHALATION STA (12:08)
--- NOTE | 2019-02-28 12:18 | ED ---
General Adult HPI - General Chief complaint: Recheck/Abnormal Lab/Rx Stated complaint: Fluid retention Time Seen by Provider: 02/28/19 11:20 Source: patient, RN notes reviewed Mode of arrival: ambulatory Limitations: no limitations - History of Present Illness Initial comments: This is an 83-year-old male who presents emergency Department with a past me dical history significant for high blood pressure and COPD as well as renal dialysis. Patient presents today because he is concerned about the increased edema. Patient also states he's been having more difficult time breathing over the last couple of days. Patient has dialysis 3 times a week and supposedly yesterday they extend his dialysis to take more fluid off but according to the was not successful. Patient denies any chest pain or palpitations per patient denies headache patient denies numbness weakness. Patient denies any recent fever chills. Patient denies any injury or trauma. Patient has bilateral edema legs and edema in the arms as well. Patient denies any history of recent vomiting or diarrhea - Related Data Home Medications Medication Instructions Recorded Confirmed Brimonidine Tartrate [Alphagan P 1 drop BOTH EYES BID 12/10/14 02/28/19 0.1% Ophth Soln] Timolol 0.5% Ophth Soln [Timoptic 1 drop BOTH EYES DAILY 12/11/14 02/28/19 0.5% Ophth Soln] Allopurinol [Zyloprim] 100 mg PO HS 12/27/17 02/28/19 rOPINIRole HCL [Requip] 4 mg PO TID 12/27/17 02/28/19 Tamsulosin HCl [Flomax] 0.4 mg PO BID 01/24/18 02/28/19 Pravastatin Sodium [Pravachol] 20 mg PO HS 10/04/18 02/28/19 Carbidopa-Levodopa 25-100 mg 1 tab PO BID 01/24/19 02/28/19 [Sinemet 25-100 mg] Doxepin [SINEquan] 10 mg PO HS 01/24/19 02/28/19 Furosemide [Lasix] 60 mg PO BID 01/24/19 02/28/19 Prorenal + D 1 tab PO DAILY 01/24/19 02/28/19 levOCARNitine [Levocarnitine] 330 mg PO TID-W/MEALS 01/24/19 02/28/19 Albuterol Nebulized [Ventolin 2.5 mg INHALATION RT-QID 02/07/19 02/28/19 Nebulized] Previous Rx's Medication Instructions Recorded Midodrine [ProAmatine] 10 mg PO AC-TID #180 tab 01/31/18 Budesonide [Pulmicort] 1 mg INHALATION RT-BID nebu 02/15/19 Docusate [Colace] 100 mg PO BID PRN cap 02/15/19 Hydrocortisone [Cortef] 10 mg PO BID tab 02/15/19 Ipratropium-Albuterol Nebulize 3 ml INHALATION RT-TID ampul.neb 02/15/19 [Duoneb 0.5 mg-3 mg/3 ml Soln] guaiFENesin [Mucinex] 600 mg PO Q12HR PRN tablet.er 02/15/19 Budesonide-Formot 160-4.5 Mcg 2 puff INHALATION RT-BID #1 inh 02/16/19 [Symbicort 160-4.5 Mcg Inhaler] Gabapentin [Neurontin] 100 mg PO TID #9 cap 02/16/19 Allergies Allergy/AdvReac Type Severity Reaction Status Date / Time No Known Allergies Allergy Verified 02/28/19 13:34 Review of Systems ROS Statement: Those systems with pertinent positive or pertinent negative responses have been documented in the HPI. ROS Other: All systems not noted in ROS Statement are negative. Past Medical History Past Medical History: Atrial Fibrillation, COPD, Hyperlipidemia, Hypertension, Renal Disease Additional Past Medical History / Comment(s): HAS HEMODIALYSIS - MON,WED, FRI , GLAUCOMA,MACULAR DEGENERATION History of Any Multi-Drug Resistant Organisms: None Reported Past Surgical History: Hernia Repair Additional Past Surgical History / Comment(s): Mastoid surgery X3 Past Anesthesia/Blood Transfusion Reactions: Previous Problems w/ Anesthesia Additional Past Anesthesia/Blood Transfusion Reaction / Comment(s): STATES TOOK LONGER WAKING UP Past Psychological History: No Psychological Hx Reported Smoking Status: Former smoker Past Alcohol Use History: None Reported Past Drug Use History: None Reported - Past Family History Sister(s) Family Medical History: Cancer Son(s) Family Medical History: Cancer Father Family Medical History: Asthma Mother Family Medical History: Hypertension General Exam - General Exam Comments Initial Comments: GENERAL: Patient is well-developed and well-nourished. Patient is nontoxic and well- hydrated and is in mild distress. ENT: Neck is soft and supple. No significant lymphadenopathy is noted. Oropharynx is clear. Moist mucous membranes. Neck has full range of motion without eliciting any pain. EYES: The sclera were anicteric and conjunctiva were pink and moist. Extraocular movements were intact and pupils were equal round and reactive to light. Eyelids were unremarkable. PULMONARY: Patient has crackles in the bases bilaterally and expiratory wheezing. CARDIOVASCULAR: Patient has no irregular heartbeat at about 80 beats a minute ABDOMEN: Soft and nontender with normal bowel sounds. SKIN: Skin is clear with no lesions or rashes and otherwise unremarkable. NEUROLOGIC: Patient is alert and oriented x3. Cranial nerves II through XII are grossly intact. Motor and sensory are also intact. Normal speech, volume and content. Symmetrical smile. MUSCULOSKELETAL: Normal extremities with adequate strength and full range of motion. 2+ edema bilaterally LYMPHATICS: No significant lymphadenopathy is noted PSYCHIATRIC: Normal psychiatric evaluation. Limitations: no limitations Course Vital Signs 02/28/19 02/28/19 02/28/19 11:15 12:11 12:30 Temperature 97.5 F L Pulse Rate 73 78 72 Respiratory 18 22 20 Rate Blood Pressure 85/51 90/62 O2 Sat by Pulse 93 L 94 L Oximetry 02/28/19 02/28/19 13:00 13:30 Temperature Pulse Rate 67 84 Respiratory 17 33 H Rate Blood Pressure 87/60 93/67 O2 Sat by Pulse 94 L 100 Oximetry Medical Decision Making - Medical Decision Making EKG shows atrial fibrillation at a rate 81 bpm QRS is 84 QT interval 390 QTC is 453. Patient's EKG shows no ST segment elevation. I compared the EKG to old EKG no acute changes are noted. Patient's chest x-ray shows pulmonary edema. I spoke with Dr. sarah agreed to admit the patient admitted the patient I consult nephrology. - Lab Data Result diagrams: 02/28/19 12:20 02/28/19 12:20 Lab Results 02/28/19 02/28/19 02/28/19 Range/Units 12:20 12:20 12:20 WBC 5.6 (3.8-10.6) k/uL RBC 2.90 L (4.30-5.90) m/uL Hgb 9.9 L (13.0-17.5) gm/dL Hct 31.2 L (39.0-53.0) % MCV 107.5 H D (80.0-100.0) fL MCH 34.0 (25.0-35.0) pg MCHC 31.6 (31.0-37.0) g/dL RDW 15.9 H (11.5-15.5) % Plt Count 100 L (150-450) k/uL Neutrophils % 70 % Lymphocytes % 10 % Monocytes % 10 % Eosinophils % 4 % Basophils % 2 % Neutrophils # 3.9 (1.3-7.7) k/uL Lymphocytes # 0.6 L (1.0-4.8) k/uL Monocytes # 0.5 (0-1.0) k/uL Eosinophils # 0.2 (0-0.7) k/uL Basophils # 0.1 (0-0.2) k/uL Manual Slide Review Performed Poikilocytosis (manual Present Macrocytosis Marked A PT (9.0-12.0) sec INR (<1.2) APTT (22.0-30.0) sec Sodium 137 (137-145) mmol/L Potassium 4.5 (3.5-5.1) mmol/L Chloride 94 L (98-107) mmol/L Carbon Dioxide 32 H (22-30) mmol/L Anion Gap 11 mmol/L BUN 47 H (9-20) mg/dL Creatinine 3.70 H (0.66-1.25) mg/dL Est GFR (CKD-EPI)AfAm 16 (>60 ml/min/1.73 sqM) Est GFR (CKD-EPI)NonAf 14 (>60 ml/min/1.73 sqM) Glucose 92 (74-99) mg/dL Calcium 9.1 (8.4-10.2) mg/dL Magnesium 2.1 (1.6-2.3) mg/dL Total Bilirubin 1.5 H (0.2-1.3) mg/dL AST 29 (17-59) U/L ALT 13 L (21-72) U/L Alkaline Phosphatase 336 H (38-126) U/L Troponin I (0.000-0.034) ng/mL NT-Pro-B Natriuret Pep 42558 pg/mL Total Protein 6.7 (6.3-8.2) g/dL Albumin 3.4 L (3.5-5.0) g/dL 02/28/19 02/28/19 Range/Units 12:20 12:20 WBC (3.8-10.6) k/uL RBC (4.30-5.90) m/uL Hgb (13.0-17.5) gm/dL Hct (39.0-53.0) % MCV (80.0-100.0) fL MCH (25.0-35.0) pg MCHC (31.0-37.0) g/dL RDW (11.5-15.5) % Plt Count (150-450) k/uL Neutrophils % % Lymphocytes % % Monocytes % % Eosinophils % % Basophils % % Neutrophils # (1.3-7.7) k/uL Lymphocytes # (1.0-4.8) k/uL Monocytes # (0-1.0) k/uL Eosinophils # (0-0.7) k/uL Basophils # (0-0.2) k/uL Manual Slide Review Poikilocytosis (manual Macrocytosis PT 11.3 (9.0-12.0) sec INR 1.1 (<1.2) APTT 32.3 H (22.0-30.0) sec Sodium (137-145) mmol/L Potassium (3.5-5.1) mmol/L Chloride (98-107) mmol/L Carbon Dioxide (22-30) mmol/L Anion Gap mmol/L BUN (9-20) mg/dL Creatinine (0.66-1.25) mg/dL Est GFR (CKD-EPI)AfAm (>60 ml/min/1.73 sqM) Est GFR (CKD-EPI)NonAf (>60 ml/min/1.73 sqM) Glucose (74-99) mg/dL Calcium (8.4-10.2) mg/dL Magnesium (1.6-2.3) mg/dL Total Bilirubin (0.2-1.3) mg/dL AST (17-59) U/L ALT (21-72) U/L Alkaline Phosphatase (38-126) U/L Troponin I 0.028 (0.000-0.034) ng/mL NT-Pro-B Natriuret Pep pg/mL Total Protein (6.3-8.2) g/dL Albumin (3.5-5.0) g/dL Disposition Clinical Impression: Acute pulmonary edema, Anasarca Disposition: ADMITTED IP TO THIS HOSP Referrals: Vaibhav Ortiz MD [Primary Care Provider] - 1-2 days Time of Disposition: 14:34
[2019-02-28 12:47] LABS: Basophils # (A) 0.1 k/uL (0-0.2); Basophils % (A) 2 %; Eosinophils # (A) 0.2 k/uL (0-0.7); Eosinophils % (A) 4 %; HCT 31.2 % (39.0-53.0); HGB 9.9 gm/dL (13.0-17.5); Lymphocytes # (A) 0.6 k/uL (1.0-4.8); Lymphocytes % (A) 10 %; MCHC 31.6 g/dL (31.0-37.0); Macrocytosis Marked; Mean Platelet Volume 7.8; Monocytes # (A) 0.5 k/uL (0-1.0); Monocytes % (A) 10 %; Neutrophils # (A) 3.9 k/uL (1.3-7.7); Neutrophils % (A) 70 %; Platelet Count 100 k/uL (150-450); RDW 15.9 % (11.5-15.5); WBC 5.6 k/uL (3.8-10.6)
[2019-02-28 12:53] LABS: MCV 107.5 fL (80.0-100.0)
[2019-02-28 12:58] LABS: INR 1.1 (<1.2); Partial Thromboplastin Time 32.3 sec (22.0-30.0); Prothrombin Time 11.3 sec (9.0-12.0)
[2019-02-28 13:03] LABS: Albumin 3.4 g/dL (3.5-5.0); Calcium 9.1 mg/dL (8.4-10.2); Magnesium 2.1 mg/dL (1.6-2.3); Potassium 4.5 mmol/L (3.5-5.1); Total Bilirubin 1.5 mg/dL (0.2-1.3); Total Protein 6.7 g/dL (6.3-8.2)
--- NOTE | 2019-02-28 13:05 | XR ---
EXAMINATION TYPE: XR chest 2V DATE OF EXAM: 02/28/2019 COMPARISON: 02/14/2019 HISTORY: Difficult to breathing TECHNIQUE: Frontal and lateral views of the chest are obtained. FINDINGS: There is a retrocardiac opacity and multifocal confluent opacities in the right lower lung . Mild pulmonary vascular congestion and cardiomegaly. Diffuse osseous demineralization and sequela o f chronic rotator cuff injury on the right. Moderate degenerative changes of the spine. Trace right a nd small left pleural effusions. IMPRESSION: Fluid overload with mild interstitial edema and pleural effusions, left greater than rig ht. Findings are likely on the basis of congestive heart failure. Additionally left basilar airspace disease may represent atelectasis or pneumonia and right basilar airspace disease may be on the basis of atelectasis or confluent pulmonary edema.
[2019-02-28 13:16] LABS: Poikilocytosis (M) Present
[2019-02-28] MEDS ORDERED: DOCUSATE 100 MG CAP PO PRN (14:43)
[2019-02-28] MEDS: MIDODRINE 5 MG TAB PO SCH (17:58)
[2019-02-28] MEDS: rOPINIRole HCL 4 MG TABLET PO SCH ×2 (17:58→23:20)
[2019-02-28] MEDS: GABAPENTIN 100 MG CAP PO SCH ×2 (18:10→23:21)
[2019-02-28] MEDS: BUDESONIDE 1 MG/2 ML NEBU INHALATION SCH (18:55)
[2019-02-28] MEDS: IPRATROPIUM-ALBUTEROL 3 ML NEB INHALATION SCH (18:56)
--- NOTE | 2019-02-28 21:35 | P.HPIM ---
History of Present Illness This is a pleasant 83 years old female with past medical history of atrial fibrillation, COPD, hypertension, hyperlipidemia, end-stage renal disease on hemodialysis. He was recently discharged from the hospital for vasovagal syncop e with choking. Also he was complaining of from pulmonary congestion on admission. At that time he was discharged to subacute rehab on 02/16/2019 for two days. 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 no significant dyspnea , no chest pain Vitas looks stable however patient is tachypneic and hypotensive with blood pressure 93/67 and heart rate of 84, breathing rate is 20-30. Labs showing that she has 5.6, hemoglobin 9.9 and platelet 100. INR is 1.1, his creatinine is 3.7, sodium and potassium are within normal limits. Magnesium 2.1, bilirubin 1.5, liver enzymes not elevated. Chest x-ray showing fluid overload with in terstitial edema. Left basilar density suspicious for pneumonia versus CHF Review of Systems CONSTITUTIONAL: No fever, no malaise, no fatigue. HEENT: No recent visual problems or hearing problems. Denied any sore throat. CARDIOVASCULAR: no palpitations, no syncope. PULMONARY: no hemoptysis. GASTROINTESTINAL: No diarrhea, no nausea, no vomiting, no abdominal pain. Normoactive bowel sounds. NEUROLOGICAL: No headaches, no weakness, no numbness. HEMATOLOGICAL: Denies any bleeding or petechiae. GENITOURINARY: Denies any burning micturition, frequency, or urgency. MUSCULOSKELETAL/RHEUMATOLOGICAL: Denies any joint pain, swelling, or any muscle pain. ENDOCRINE: Denies any polyuria or polydipsia. Past Medical History Past Medical History: Atrial Fibrillation, COPD, Hyperlipidemia, Hypertension, Renal Disease Additional Past Medical History / Comment(s): HAS HEMODIALYSIS - MON,WED, FRI , GLAUCOMA,MACULAR DEGENERATION History of Any Multi-Drug Resistant Organisms: None Reported Past Surgical History: Hernia Repair Additional Past Surgical History / Comment(s): Mastoid surgery X3 Past Anesthesia/Blood Transfusion Reactions: Previous Problems w/ Anesthesia Additional Past Anesthesia/Blood Transfusion Reaction / Comment(s): STATES TOOK LONGER WAKING UP Past Psychological History: No Psychological Hx Reported Smoking Status: Former smoker Past Alcohol Use History: None Reported Past Drug Use History: None Reported - Past Family History Sister(s) Family Medical History: Cancer Son(s) Family Medical History: Cancer Father Family Medical History: Asthma Mother Family Medical History: Hypertension Medications and Allergies Home Medications Medication Instructions Recorded Confirmed Type Brimonidine Tartrate [Alphagan P 1 drop BOTH EYES BID 12/10/14 02/28/19 History 0.1% Ophth Soln] Timolol 0.5% Ophth Soln [Timoptic 1 drop BOTH EYES DAILY 12/11/14 02/28/19 History 0.5% Ophth Soln] Allopurinol [Zyloprim] 100 mg PO HS 12/27/17 02/28/19 History rOPINIRole HCL [Requip] 4 mg PO TID 12/27/17 02/28/19 History Tamsulosin HCl [Flomax] 0.4 mg PO BID 01/24/18 02/28/19 History Midodrine [ProAmatine] 10 mg PO AC-TID #180 tab 01/31/18 02/28/19 Rx Pravastatin Sodium [Pravachol] 20 mg PO HS 10/04/18 02/28/19 History Carbidopa-Levodopa 25-100 mg 1 tab PO BID 01/24/19 02/28/19 History [Sinemet 25-100 mg] Doxepin [SINEquan] 10 mg PO HS 01/24/19 02/28/19 History Furosemide [Lasix] 60 mg PO BID 01/24/19 02/28/19 History Prorenal + D 1 tab PO DAILY 01/24/19 02/28/19 History levOCARNitine [Levocarnitine] 330 mg PO TID-W/MEALS 01/24/19 02/28/19 History Albuterol Nebulized [Ventolin 2.5 mg INHALATION RT-QID 02/07/19 02/28/19 History Nebulized] Budesonide [Pulmicort] 1 mg INHALATION RT-BID nebu 02/15/19 02/28/19 Rx Docusate [Colace] 100 mg PO BID PRN cap 02/15/19 02/28/19 Rx Hydrocortisone [Cortef] 10 mg PO BID tab 02/15/19 02/28/19 Rx Ipratropium-Albuterol Nebulize 3 ml INHALATION RT-TID ampul.neb 02/15/19 02/28/19 Rx [Duoneb 0.5 mg-3 mg/3 ml Soln] guaiFENesin [Mucinex] 600 mg PO Q12HR PRN tablet.er 02/15/19 02/28/19 Rx Budesonide-Formot 160-4.5 Mcg 2 puff INHALATION RT-BID #1 inh 02/16/19 02/28/19 Rx [Symbicort 160-4.5 Mcg Inhaler] Gabapentin [Neurontin] 100 mg PO TID #9 cap 02/16/19 02/28/19 Rx Allergies Allergy/AdvReac Type Severity Reaction Status Date / Time No Known Allergies Allergy Verified 02/28/19 13:34 Physical Exam Vitals: Vital Signs Temp Pulse Resp BP Pulse Ox 02/28/19 13:30 84 33 H 93/67 100 02/28/19 13:00 67 17 87/60 94 L 02/28/19 12:30 72 20 90/62 94 L 02/28/19 12:11 78 22 02/28/19 11:15 97.5 F L 73 18 85/51 93 L Intake and Output 02/27/19 02/28/19 02/28/19 22:59 06:59 14:59 Other: Weight 90.718 kg GENERAL: The patient is alert and oriented x3, not in any acute distress. Well developed, well nourished. HEENT: Pupils are round and equally reacting to light. EOMI. No scleral icterus. No conjunctival pallor. Normocephalic, atraumatic. No pharyngeal erythema. No thyromegaly. CARDIOVASCULAR: S1 and S2 present. No murmurs, rubs, or gallops. -PULMONARY: Chest is clear to auscultation, no wheezing. b/l mild basal crackles. -ABDOMEN: Soft, nontender, increased abd girth with distension mostly due to fluid, normoactive bowel sounds. No palpable organomegaly. MUSCULOSKELETAL: No joint swelling or deformity. -EXTREMITIES: No cyanosis, clubbing. b/l leg edema NEUROLOGICAL: Gross neurological examination did not reveal any focal deficits. SKIN: No rashes. No petechiae Results CBC & Chem 7: 02/28/19 12:20 02/28/19 12:20 Labs: Abnormal Lab Results - Last 24 Hours (Table) 02/28/19 02/28/19 02/28/19 Range/Units 12:20 12:20 12:20 RBC 2.90 L (4.30-5.90) m/uL Hgb 9.9 L (13.0-17.5) gm/dL Hct 31.2 L (39.0-53.0) % MCV 107.5 H D (80.0-100.0) fL RDW 15.9 H (11.5-15.5) % Plt Count 100 L (150-450) k/uL Lymphocytes # 0.6 L (1.0-4.8) k/uL Macrocytosis Marked A APTT 32.3 H (22.0-30.0) sec Chloride 94 L (98-107) mmol/L Carbon Dioxide 32 H (22-30) mmol/L BUN 47 H (9-20) mg/dL Creatinine 3.70 H (0.66-1.25) mg/dL Total Bilirubin 1.5 H (0.2-1.3) mg/dL ALT 13 L (21-72) U/L Alkaline Phosphatase 336 H (38-126) U/L Albumin 3.4 L (3.5-5.0) g/dL Assessment and Plan Assessment: Hypotension with tachycardia Pulmonary edema and fluid overload Possible pneumonia on the chest x-ray Recent history of Syncope , mostly vasovagal syncope associated with choking. Difficulty swallowing pulmonary congestion, present on admission Chronic bronchitis with chronic cough and dyspnea. Patient has COPD, does not look in acute exacerbation coagulopathy secondary to Coumadin Fall with head trauma End-stage kidney disease on hemodialysis Chronic atrial fibrillation on Coumadin Hyperlipidemia Plan: This is a pleasant 83 years old male who presents with primary congestion/edema with low normal blood pressure and possible pneumonia. Follow-up culture results. We will start the patient on Zosyn. We'll call pulmonary and nephrology consult for further evaluation. Restart Coumadin pharmacy to dose and follow up INR. Ask for physical therapy evaluation. Follow-up chest x-ray. Patient might benefit from ECF placement upon discharge Labs and medication were reviewed.. Continue same treatment. Continue with symptomatic treatment. Resume home medication. Monitor lytes and vitals. DVT and GI prophylaxis. Further recommendations of the clinical course of the patient DVT prophylaxis: Coumadine GI Prophylaxis: Pepcid PT/OT: Pending Prognosis is guarded
[2019-02-28] MEDS: PRAVASTATIN SODIUM 20 MG TAB PO SCH (21:50)
[2019-02-28] MEDS: FUROSEMIDE 10 MG/ML 4 ML VIAL IV SCH (21:50)
[2019-02-28] MEDS: CARBIDOPA-LEVODOPA 25-100 MG 1 EACH TAB PO SCH (23:20)
[2019-02-28] MEDS: HYDROCORTISONE 10 MG TAB PO SCH (23:20)
[2019-02-28] MEDS: ALLOPURINOL 100 MG TAB PO SCH (23:20)
[2019-03-01] MEDS: ACETAMINOPHEN TAB 325 MG TAB PO PRN ×2 (01:54→21:44)
[2019-03-01] MEDS: BUDESONIDE 1 MG/2 ML NEBU INHALATION SCH ×2 (07:04→19:47)
[2019-03-01] MEDS: IPRATROPIUM-ALBUTEROL 3 ML NEB INHALATION SCH ×3 (07:04→19:47)
[2019-03-01] MEDS: NON FORMULARY DRUG (Levocarnitine [Levocarnitine] 330 MG) PO SCH ×3 (07:47→15:58)
[2019-03-01] MEDS: MIDODRINE 5 MG TAB PO SCH ×3 (07:54→15:57)
[2019-03-01] MEDS: HYDROCORTISONE 10 MG TAB PO SCH ×2 (09:36→22:06)
[2019-03-01] MEDS: CARBIDOPA-LEVODOPA 25-100 MG 1 EACH TAB PO SCH ×2 (09:36→21:46)
[2019-03-01] MEDS: TIMOLOL 0.5% OPHTH DROPS 5 ML BTL BOTH EYES SCH (09:36)
[2019-03-01] MEDS: FUROSEMIDE 10 MG/ML 4 ML VIAL IV SCH (09:36)
[2019-03-01] MEDS: rOPINIRole HCL 4 MG TABLET PO SCH ×3 (09:38→21:44)
--- NOTE | 2019-03-01 11:16 | P.NPCON ---
History of Present Illness - Reason for Consult end stage renal disease - History of Present Illness Reason for consultation: End-stage renal disease History of present illness: Patient is a 83-year-old male seen in renal consultation for end-stage renal disease. He is maintained on hemodialysis on Wednesday schedule AV fistula. Patient presented to the hospital due to worsening edema and shortness of breath. Patient denies missing any dialysis treatments. Patient states he did go for an extra treatment of hemodialysis on Wednesday. He denies any fever or chills. No vomiting or diarrhea. Chest x-ray was suggestive of vascular congestion. Hemodynamically stable. Denies chest pain. He did undergo hemodialysis yesterday in the hospital with 2 L ultrafiltration. He is scheduled to undergo another treatment today per his outpatient schedule. Vital signs are stable. General: The patient appeared well nourished and normally developed. HEENT: Head exam is unremarkable. Neck is without jugular venous distension. LUNGS: Lungs are clear to auscultation and percussion. Breath sounds decreased. HEART: Rate and Rhythm are regular. First and second heart sounds normal. No murmurs, rubs or gallops. ABDOMEN: Abdominal exam reveals normal bowel sounds. Distention noted. EXTREMITITES: 1+ edema. Past Medical History Past Medical History: Atrial Fibrillation, COPD, Hyperlipidemia, Hypertension, Renal Disease Additional Past Medical History / Comment(s): HAS HEMODIALYSIS - WED,WED, WED , GLAUCOMA,MACULAR DEGENERATION History of Any Multi-Drug Resistant Organisms: None Reported Past Surgical History: Hernia Repair Additional Past Surgical History / Comment(s): Mastoid surgery X3 Past Anesthesia/Blood Transfusion Reactions: Previous Problems w/ Anesthesia Additional Past Anesthesia/Blood Transfusion Reaction / Comment(s): STATES TOOK LONGER WAKING UP Past Psychological History: No Psychological Hx Reported Smoking Status: Former smoker Past Alcohol Use History: None Reported Past Drug Use History: None Reported - Past Family History Sister(s) Family Medical History: Cancer Son(s) Family Medical History: Cancer Father Family Medical History: Asthma Mother Family Medical History: Hypertension Medications and Allergies Home Medications Medication Instructions Recorded Confirmed Type Brimonidine Tartrate [Alphagan P 1 drop BOTH EYES BID 12/10/14 02/28/19 History 0.1% Ophth Soln] Timolol 0.5% Ophth Soln [Timoptic 1 drop BOTH EYES DAILY 12/11/14 02/28/19 History 0.5% Ophth Soln] Allopurinol [Zyloprim] 100 mg PO HS 12/27/17 02/28/19 History rOPINIRole HCL [Requip] 4 mg PO TID 12/27/17 02/28/19 History Tamsulosin HCl [Flomax] 0.4 mg PO BID 01/24/18 02/28/19 History Midodrine [ProAmatine] 10 mg PO AC-TID #180 tab 01/31/18 02/28/19 Rx Pravastatin Sodium [Pravachol] 20 mg PO HS 10/04/18 02/28/19 History Carbidopa-Levodopa 25-100 mg 1 tab PO BID 01/24/19 02/28/19 History [Sinemet 25-100 mg] Doxepin [SINEquan] 10 mg PO HS 01/24/19 02/28/19 History Furosemide [Lasix] 60 mg PO BID 01/24/19 02/28/19 History Prorenal + D 1 tab PO DAILY 01/24/19 02/28/19 History levOCARNitine [Levocarnitine] 330 mg PO TID-W/MEALS 01/24/19 02/28/19 History Albuterol Nebulized [Ventolin 2.5 mg INHALATION RT-QID 02/07/19 02/28/19 History Nebulized] Budesonide [Pulmicort] 1 mg INHALATION RT-BID nebu 02/15/19 02/28/19 Rx Docusate [Colace] 100 mg PO BID PRN cap 02/15/19 02/28/19 Rx Hydrocortisone [Cortef] 10 mg PO BID tab 02/15/19 02/28/19 Rx Ipratropium-Albuterol Nebulize 3 ml INHALATION RT-TID ampul.neb 02/15/19 02/28/19 Rx [Duoneb 0.5 mg-3 mg/3 ml Soln] guaiFENesin [Mucinex] 600 mg PO Q12HR PRN tablet.er 02/15/19 02/28/19 Rx Budesonide-Formot 160-4.5 Mcg 2 puff INHALATION RT-BID #1 inh 02/16/19 02/28/19 Rx [Symbicort 160-4.5 Mcg Inhaler] Gabapentin [Neurontin] 100 mg PO TID #9 cap 02/16/19 02/28/19 Rx Allergies Allergy/AdvReac Type Severity Reaction Status Date / Time No Known Allergies Allergy Verified 02/28/19 13:34 Physical Exam Vitals: Vital Signs Temp Pulse Pulse Resp BP BP Pulse Ox 03/01/19 11:04 82 03/01/19 10:56 86 03/01/19 08:02 97.7 F 101 H 16 112/71 98 03/01/19 07:20 78 03/01/19 07:04 96 03/01/19 02:10 97.7 F 92 18 100/59 96 02/28/19 23:32 97.6 F 90 18 113/67 98 02/28/19 21:25 97.6 F 86 20 107/71 02/28/19 19:55 89 18 02/28/19 19:38 97.4 F L 89 18 89/57 95 02/28/19 19:07 84 02/28/19 18:56 82 02/28/19 18:14 93 5 L 96/76 100 02/28/19 18:00 93 5 L 96/76 100 02/28/19 17:30 83 17 105/64 99 02/28/19 17:00 86 17 94/61 73 L 02/28/19 16:30 82 14 94/65 100 02/28/19 16:00 82 18 88/54 94 L 02/28/19 15:30 90 19 104/65 02/28/19 15:00 76 21 94/67 02/28/19 14:30 85 22 88/59 97 02/28/19 14:00 77 22 86/61 97 02/28/19 13:30 84 33 H 93/67 100 02/28/19 13:00 67 17 87/60 94 L 02/28/19 12:30 72 20 90/62 94 L 02/28/19 12:11 78 22 02/28/19 11:15 97.5 F L 73 18 85/51 93 L Intake and Output 02/28/19 03/01/19 03/01/19 22:59 06:59 14:59 Output Total 1999 -1999 Output: Hemodialysis 1999 Other: Voiding Method Urinal Urinal # Voids 0 Results - Lab Results Most recent lab results Calcium 9.1 mg/dL (8.4-10.2) 02/28/19 12:20 Magnesium 2.1 mg/dL (1.6-2.3) 02/28/19 12:20 02/28/19 12:20 02/28/19 12:20 Assessment and Plan Plan: Assessment: 1. End-stage renal disease maintained on hemodialysis on Wednesday scheduled AV fistula. 2. Dyspnea secondary to volume overload. 3. Anemia of chronic kidney disease. 4. Acute on chronic systolic CHF with ejection fraction of 45-50%. 5. Chronic hypotension maintained on midodrine. Plan: Hemodialysis today and will plan for another treatment tomorrow. Maintain midodrine if needed for systolic blood pressure less than 90. Increase Lasix to 80 mg IV twice daily. Low-salt diet. Continue with daily dialysis mostly for ultrafiltration purposes. Patient tends to cramp and gets hypotensive which makes it difficult to achieve adequate ultrafiltration outpatient. Thank you for the consultation. I will continue to follow the patient with you during his hospital stay.
[2019-03-01] MEDS: GABAPENTIN 100 MG CAP PO SCH ×3 (12:01→21:44)
[2019-03-01 13:47] VITALS: BMI 31.3
--- NOTE | 2019-03-01 15:49 | P.CNPUL ---
History of Present Illness Consult date: 03/01/19 Requesting physician: Rodriguez Katz Reason for consult: dyspnea, other Chief complaint: Dyspnea, fluid overload History of present illness: This is a 83-year-old white male patient who follows with Dr. Peoples for primary care services, with past medical history of end-stage renal disease on hemodialysis on Wednesday basis, chronic A. fib on Coumadin, COPD, hypertension, hyperlipidemia, recurrent pleural effusions, with past history of thoracentesis with negative pathology. Patient has a mildly impaired left ventricle systolic function with an EF of 45-50%, without evidence of significant valvular disease. Patient was dialyzed on Wednesday, on 02/27/2019, and apparently received an extra long hemodialysis treatment, and had a 2-1/2 L taken off, however over the past few days he has been experiencing increased shortness of breath, difficulty walking, and patient had obvious signs of fluid overload with increased lower extremity and truncal swelling, and apparently he put on over 9 pounds in the last 2 days. Patient was then directed to the emergency department for evaluation, and hemodialysis treatment was done on 02/28/2019 with removal of 2 L of fluid. Chest x-ray was completed, showing fluid overload with mild interstitial edema and pleural effusions left greater than the right. Labs showed white count of 5.6, hemoglobin of 9.9, sodium of 137, potassium 4.5, chloride is 94, CO2 32, BUN of 47, and creatinine of 3.70. Patient is being seen in the emergency department he is awaiting a bed on selective care unit, he will have another hemodialysis treatment today, he is feeling better today, he did experience some hypotension which has resolved. Patient is on midodrine at 10 mg 3 times a day and hydrocortisone at 10 mg twice daily Review of Systems All systems: negative Constitutional: Denies chills, Denies fever Eyes: denies blurred vision, denies pain Ears, nose, mouth and throat: Denies headache, Denies sore throat Cardiovascular: Reports decreased exercise tolerance, Reports dyspnea on exertion, Reports edema, Reports leg edema, Reports shortness of breath, Denies chest pain Respiratory: Reports dyspnea, Denies cough Gastrointestinal: Denies abdominal pain, Denies diarrhea, Denies nausea, Denies vomiting Musculoskeletal: Denies myalgias Integumentary: Denies pruritus, Denies rash Neurological: Denies numbness, Denies weakness Psychiatric: Denies anxiety, Denies depression Endocrine: Denies fatigue, Denies weight change Past Medical History Past Medical History: Atrial Fibrillation, COPD, Hyperlipidemia, Hypertension, Renal Disease Additional Past Medical History / Comment(s): HAS HEMODIALYSIS - MON,WED, FRI , GLAUCOMA,MACULAR DEGENERATION History of Any Multi-Drug Resistant Organisms: None Reported Past Surgical History: Hernia Repair Additional Past Surgical History / Comment(s): Mastoid surgery X3 Past Anesthesia/Blood Transfusion Reactions: Previous Problems w/ Anesthesia Additional Past Anesthesia/Blood Transfusion Reaction / Comment(s): STATES TOOK LONGER WAKING UP Past Psychological History: No Psychological Hx Reported Smoking Status: Former smoker Past Alcohol Use History: None Reported Past Drug Use History: None Reported - Past Family History Sister(s) Family Medical History: Cancer Son(s) Family Medical History: Cancer Father Family Medical History: Asthma Mother Family Medical History: Hypertension Medications and Allergies Home Medications Medication Instructions Recorded Confirmed Type Brimonidine Tartrate [Alphagan P 1 drop BOTH EYES BID 12/10/14 02/28/19 History 0.1% Ophth Soln] Timolol 0.5% Ophth Soln [Timoptic 1 drop BOTH EYES DAILY 12/11/14 02/28/19 History 0.5% Ophth Soln] Allopurinol [Zyloprim] 100 mg PO HS 12/27/17 02/28/19 History rOPINIRole HCL [Requip] 4 mg PO TID 12/27/17 02/28/19 History Tamsulosin HCl [Flomax] 0.4 mg PO BID 01/24/18 02/28/19 History Midodrine [ProAmatine] 10 mg PO AC-TID #180 tab 01/31/18 02/28/19 Rx Pravastatin Sodium [Pravachol] 20 mg PO HS 10/04/18 02/28/19 History Carbidopa-Levodopa 25-100 mg 1 tab PO BID 01/24/19 02/28/19 History [Sinemet 25-100 mg] Doxepin [SINEquan] 10 mg PO HS 01/24/19 02/28/19 History Furosemide [Lasix] 60 mg PO BID 01/24/19 02/28/19 History Prorenal + D 1 tab PO DAILY 01/24/19 02/28/19 History levOCARNitine [Levocarnitine] 330 mg PO TID-W/MEALS 01/24/19 02/28/19 History Albuterol Nebulized [Ventolin 2.5 mg INHALATION RT-QID 02/07/19 02/28/19 History Nebulized] Budesonide [Pulmicort] 1 mg INHALATION RT-BID nebu 02/15/19 02/28/19 Rx Docusate [Colace] 100 mg PO BID PRN cap 02/15/19 02/28/19 Rx Hydrocortisone [Cortef] 10 mg PO BID tab 02/15/19 02/28/19 Rx Ipratropium-Albuterol Nebulize 3 ml INHALATION RT-TID ampul.neb 02/15/19 02/28/19 Rx [Duoneb 0.5 mg-3 mg/3 ml Soln] guaiFENesin [Mucinex] 600 mg PO Q12HR PRN tablet.er 02/15/19 02/28/19 Rx Budesonide-Formot 160-4.5 Mcg 2 puff INHALATION RT-BID #1 inh 02/16/19 02/28/19 Rx [Symbicort 160-4.5 Mcg Inhaler] Gabapentin [Neurontin] 100 mg PO TID #9 cap 02/16/19 02/28/19 Rx Allergies Allergy/AdvReac Type Severity Reaction Status Date / Time No Known Allergies Allergy Verified 02/28/19 13:34 Physical Exam Vitals: Vital Signs Temp Pulse Pulse Resp BP BP Pulse Ox 03/01/19 12:47 98.2 F 89 16 95/68 95 03/01/19 11:04 82 03/01/19 10:56 86 03/01/19 08:02 97.7 F 101 H 16 112/71 98 03/01/19 07:20 78 03/01/19 07:04 96 03/01/19 02:10 97.7 F 92 18 100/59 96 02/28/19 23:32 97.6 F 90 18 113/67 98 02/28/19 21:25 97.6 F 86 20 107/71 02/28/19 19:55 89 18 02/28/19 19:38 97.4 F L 89 18 89/57 95 02/28/19 19:07 84 02/28/19 18:56 82 02/28/19 18:14 93 5 L 96/76 100 02/28/19 18:00 93 5 L 96/76 100 02/28/19 17:30 83 17 105/64 99 02/28/19 17:00 86 17 94/61 73 L 02/28/19 16:30 82 14 94/65 100 02/28/19 16:00 82 18 88/54 94 L 02/28/19 15:30 90 19 104/65 Intake and Output 03/01/19 03/01/19 03/01/19 06:59 14:59 22:59 Other: Voiding Method Urinal Urinal # Voids 0 Weight 90.718 kg GENERAL EXAM: Alert, very pleasant, 83-year-old white male, with a fading facial bruising comfortable in no apparent distress. HEAD: Normocephalic/atraumatic. EYES: Normal reaction of pupils, equal size. Conjunctiva pink, sclera white. NOSE: Clear with pink turbinates. THROAT: No erythema or exudates. NECK: No masses, no JVD, no thyroid enlargement, no adenopathy. CHEST: No chest wall deformity. Symmetrical expansion. LUNGS: Equal air entry with scattered wheezing CVS: Regular rate and rhythm, normal S1 and S2, no gallops, no murmurs, no rubs ABDOMEN: Soft, nontender. No hepatosplenomegaly, normal bowel sounds, no guarding or rigidity. EXTREMITIES: No clubbing, no cyanosis, 2+ pulses and upper and lower extremities. Right arm fistula with positive bruit and thrill. MUSCULOSKELETAL: Muscle strength and tone normal. SPINE: No scoliosis or deformity SKIN: No rashes CENTRAL NERVOUS SYSTEM: Alert and oriented -3. No focal deficits, tone is normal in all 4 extremities. PSYCHIATRIC: Alert and oriented -3. Appropriate affect. Intact judgment and insight. Results - Laboratory Findings CBC and BMP: 02/28/19 12:20 02/28/19 12:20 PT/INR, D-dimer PT 11.3 sec (9.0-12.0) 02/28/19 12:20 INR 1.1 (<1.2) 02/28/19 12:20 Abnormal lab findings: Abnormal Labs 02/28/19 02/28/19 02/28/19 12:20 12:20 12:20 RBC 2.90 L Hgb 9.9 L Hct 31.2 L MCV 107.5 H D RDW 15.9 H Plt Count 100 L Lymphocytes # 0.6 L Macrocytosis Marked A APTT 32.3 H Chloride 94 L Carbon Dioxide 32 H BUN 47 H Creatinine 3.70 H Total Bilirubin 1.5 H ALT 13 L Alkaline Phosphatase 336 H Albumin 3.4 L - Diagnostic Findings Chest x-ray: report reviewed, image reviewed Assessment and Plan Plan: #1. Dyspnea and fluid overload related to acute exacerbation of congestive heart failure with mildly impaired systolic function and EF of 45-50% #2. End-stage renal disease on hemodialysis #3. Chronic atrial fibrillation on Coumadin #4. Fall at home following the aspiration episode #5. Injury to the right wrist and right hand sustained in the fall and x-ray of the wrist and hand were negative for fracture #6. Recent admission for a fall, left-sided pleural effusion #7. Gait dysfunction #8. History of left-sided thoracentesis with the bloody effusion, and negative pathology #9. Hypotention, chronic, on Midodrine and Cortef #10. Hyperlipidemia #11. Former smoker #12. Anemia of chronic kidney disease Plan: Patient is feeling better, breathing easier, he is getting on the hemodialysis treatment today, still has significant lower extremity edema, nephrology is fo llowing, will await their further recommendation. He is on a low-sodium diet, is on IV Lasix. Continue with acute I&O's, daily weights. Possibility of discharge tomorrow if cleared by nephrology. I performed a history & physical examination of the patient and discussed their management with my nurse practitioner, Mariela Irene. I reviewed the nurse practitioner's note and agree with the documented findings and plan of care. Lung sounds are positive for diminished breath sounds with a few wheezes. The findings and the impression was discussed with the patient. I attest to the documentation by the nurse practitioner. Time with Patient: Greater than 30
--- NOTE | 2019-03-01 20:20 | P.PN ---
Subjective This is a pleasant 83 years old female with past medical history of atrial fibrillation, COPD, hypertension, hyperlipidemia, end-stage renal disease on hemodialysis. He was recently discharged from the hospital for vasovagal syncope with choking. Also he was complaining of from pulmonary congestion on admission. At that time he was discharged to subacute rehab on 02/16/2019 for two days. 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 no significant dyspnea , no chest pain Vitas looks stable however patient is tachypneic and hypotensive with blood pressure 93/67 and heart rate of 84, breathing rate is 20-30. Labs showing that she has 5.6, hemoglobin 9.9 and platelet 100. INR is 1.1, his creatinine is 3.7, sodium and potassium are within normal limits. Magnesium 2.1, bilirubin 1.5, liver enzymes not elevated. Chest x-ray showing fluid overload with interstitial edema. Left basilar density suspicious for pneumonia versus CHF 03/01/19 pt undergoing hemodialysis today and tomorrow and he was placed on lasix iv at high dose, pt is start feeling better , if he keeps improving he might be discharged tomorrow. we appreciated pulmonary and nephrology input Objective - Vital Signs Vital signs: Vital Signs Temp 97.6 F 03/01/19 20:08 Pulse 88 03/01/19 20:08 Resp 14 03/01/19 20:08 BP 103/66 03/01/19 20:08 Pulse Ox 98 03/01/19 20:08 Intake & Output 03/01/19 03/01/19 03/02/19 06:59 18:59 06:59 Intake Total 240 Output Total 1999 2499 Balance -1999 Weight 90.718 kg Intake: Oral 240 Output: Hemodialysis 1999 2499 Other: Voiding Method Urinal Urinal # Voids 0 1 # Bowel Movements 1 - Exam GENERAL: The patient is alert and oriented x3, not in any acute distress. Well developed, well nourished. HEENT: Pupils are round and equally reacting to light. EOMI. No scleral icterus. No conjunctival pallor. Normocephalic, atraumatic. No pharyngeal erythema. No thyromegaly. CARDIOVASCULAR: S1 and S2 present. No murmurs, rubs, or gallops. -PULMONARY: Chest is clear to auscultation, no wheezing. b/l mild basal crackles. -ABDOMEN: Soft, nontender, increased abd girth with distension mostly due to fluid, normoactive bowel sounds. No palpable organomegaly. MUSCULOSKELETAL: No joint swelling or deformity. -EXTREMITIES: No cyanosis, clubbing. b/l leg edema NEUROLOGICAL: Gross neurological examination did not reveal any focal deficits. SKIN: No rashes. No petechiae - Labs CBC & Chem 7: 02/28/19 12:20 02/28/19 12:20 Labs: Microbiology - Last 24 Hours (Table) 02/28/19 13:35 Blood Culture - Preliminary Blood No Growth after 24 hours Assessment and Plan Assessment: Hypotension with tachycardia Pulmonary edema and fluid overload Possible pneumonia on the chest x-ray Recent history of Syncope , mostly vasovagal syncope associated with choking. Difficulty swallowing pulmonary congestion, present on admission Chronic bronchitis with chronic cough and dyspnea. Patient has COPD, does not look in acute exacerbation coagulopathy secondary to Coumadin Fall with head trauma End-stage kidney disease on hemodialysis Chronic atrial fibrillation on Coumadin Hyperlipidemia Plan: This is a pleasant 83 years old male who presents with primary congestion/edema with low normal blood pressure and possible pneumonia. Follow-up culture results. We will start the patient on Zosyn. We'll call pulmonary and nephrology consult for further evaluation. Restart Coumadin pharmacy to dose and follow up INR. Ask for physical therapy evaluation. Follow-up chest x-ray. Patient might benefit from ECF placement upon discharge Labs and medication were reviewed.. Continue same treatment. Continue with symptomatic treatment. Resume home medication. Monitor lytes and vitals. DVT and GI prophylaxis. Further recommendations of the clinical course of the patient DVT prophylaxis: Coumadine GI Prophylaxis: Pepcid PT/OT: Pending Prognosis is guarded
[2019-03-01] MEDS ORDERED: FUROSEMIDE 10 MG/ML 10 ML VIAL IV SCH (21:00)
[2019-03-01] MEDS: ALLOPURINOL 100 MG TAB PO SCH (21:46)
[2019-03-01] MEDS: PRAVASTATIN SODIUM 20 MG TAB PO SCH (21:46)
[2019-03-02] MEDS: MIDODRINE 5 MG TAB PO SCH ×2 (05:51→12:49)
[2019-03-02] MEDS: NON FORMULARY DRUG (Levocarnitine [Levocarnitine] 330 MG) PO SCH (05:51)
[2019-03-02] MEDS: BUDESONIDE 1 MG/2 ML NEBU INHALATION SCH (08:10)
[2019-03-02] MEDS: IPRATROPIUM-ALBUTEROL 3 ML NEB INHALATION SCH ×2 (08:10→11:40)
[2019-03-02] MEDS: rOPINIRole HCL 4 MG TABLET PO SCH (08:55)
[2019-03-02] MEDS: GABAPENTIN 100 MG CAP PO SCH (08:56)
[2019-03-02] MEDS: HYDROCORTISONE 10 MG TAB PO SCH (08:56)
[2019-03-02] MEDS: TIMOLOL 0.5% OPHTH DROPS 5 ML BTL BOTH EYES SCH (09:48)
--- NOTE | 2019-03-02 10:10 | P.PN ---
Subjective Patient is seen in follow-up for end-stage renal disease. He is maintained on hemodialysis on Wednesday schedule. Dyspnea and edema both improved with ultrafiltration. Feels better today. Vital signs are stable. General: The patient appeared well nourished and normally developed. HEENT: Head exam is unremarkable. Neck is without jugular venous distension. LUNGS: Breath sounds decreased. HEART: Rate and Rhythm are regular. First and second heart sounds normal. No murmurs, rubs or gallops. ABDOMEN: Abdominal exam reveals normal bowel sounds. Non-tender, distention noted. EXTREMITITES: Trace edema. Objective - Vital Signs Vital signs: Vital Signs Temp 98.1 F 03/02/19 08:26 Pulse 77 03/02/19 08:26 Resp 20 03/02/19 08:26 BP 110/66 03/02/19 08:26 Pulse Ox 98 03/02/19 08:28 Intake & Output 03/01/19 03/02/19 03/02/19 18:59 06:59 18:59 Intake Total 240 180 Output Total 2500 Balance -2260 180 Weight 90.718 kg 85 kg Intake: Oral 240 180 Output: Hemodialysis 2500 Other: Voiding Method Urinal Urinal Urinal # Voids 1 1 0 # Bowel Movements 1 0 - Labs CBC & Chem 7: 02/28/19 12:20 02/28/19 12:20 Labs: Microbiology - Last 24 Hours (Table) 02/28/19 13:35 Blood Culture - Preliminary Blood No Growth after 24 hours Assessment and Plan Plan: Assessment: 1. End-stage renal disease maintained on hemodialysis on Wednesday scheduled AV fistula. 2. Dyspnea secondary to volume overload. Better. 3. Anemia of chronic kidney disease. 4. Acute on chronic systolic CHF with ejection fraction of 45-50%. 5. Chronic hypotension maintained on midodrine. Plan: Currently seen while undergoing hemodialysis. Next treatment tomorrow per his outpatient schedule. Maintain midodrine if needed for systolic blood pressure less than 90. Low-salt diet. Patient tends to cramp and gets hypotensive which makes it difficult to achieve adequate ultrafiltration outpatient. I advised the patient to go for extra treatments outpatient. Change Lasix to 80 mg orally twice daily.
[2019-03-02 11:55] VITALS: BP 106/74; PULSE 75; RESP 20; TEMP 97.5
--- NOTE | 2019-03-02 12:00 | CDI ---
Documentation Clarification Form Date: 03/02/2019 11:39:37 AM From: Lorene Azevedo RN CCDS Admit Date: 02/28/2019 2:36:00 PM Patient Name: Andrew Harper Visit Number: [id number] Discharge Date: ATTENTION: The Clinical Documentation Specialists (CDI) and [facility] Coding Staff appreciate your assistance in clarifying documentation. Please respond to the clarification below the line at the bottom and electronically sign. The CDI & [facility] Coding staff will review the response and follow-up if needed. Please note: Queries are made part of the Legal Health Record. If you have any questions, please contact the author of this message via ITS. Dr. Rodriguez Katz Possible Pneumonia on the chest x-ray Is documented in your H & P 02/28 and in your progress note 03/01. History/Risk Factors: 83-year-old male presents to the ED with difficulty breathing and increased edema in arms and legs. Medical history COPD, Renal Dialysis, ESRD, Chronic systolic CHF, Atrial fibrillation; HTN; Clinical Indicators: Lab findings: bnp 02399; cr 3.70; Wbc 5.6 CXR 02/28/2019 fluid overload with mild interstitial edema and pleural effusions, left greater than right. Left basilar airspace disease Vital Signs: 02/28/2019 85.51 73 97.5 18 93% ra Other Clinical Indicators: Consults: Pulmonary 03/01/2019 - Dyspnea and fluid overload related to Acute exacerbation of congestive heart failure with mildly impaired systolic function and EF of 45- 50% Treatment: Ventolin x1 Atrovent x1in ED and Current orders 03/02/2019 DuoNeb TID scheduled; Pulmicort; and Cortef; In your professional opinion, can you please clarify Pneumonia? * Pneumonia ruled out * Pneumonia ruled in * Other, please specify * Unable to determine (Last Revision: August 2017) pt unlikely has pneumonia MTDD
--- NOTE | 2019-03-02 12:11 | P.PN ---
Subjective Progress Note Date: 03/02/19 Principal diagnosis: Dyspnea, fluid overload This is a 83-year-old white male patient who follows with Dr. Peoples for primary care services, with past medical history of end-stage renal disease on hemodialysis on Wednesday basis, chronic A. fib on Coumadin, COPD, hypertension, hyperlipidemia, recurrent pleural effusions, with past history of thoracentesis with negative pathology. Patient has a mildly impaired left ventricle systolic function with an EF of 45-50%, without evidence of significant valvular disease. Patient was dialyzed on Wednesday, on 02/27/2019, and apparently received an extra long hemodialysis treatment, and had a 2-1/2 L taken off, however over the past few days he has been experiencing increased shortness of breath, difficulty walking, and patient had obvious signs of fluid overload with increased lower extremity and truncal swelling, and apparently he put on over 9 pounds in the last 2 days. Patient was then directed to the emergency department for evaluation, and hemodialysis treatment was done on 02/28/2019 with removal of 2 L of fluid. Chest x-ray was completed, showing fluid overload with mild interstitial edema and pleural effusions left greater than the right. Labs showed white count of 5.6, hemoglobin of 9.9, sodium of 137, potassium 4.5, chloride is 94, CO2 32, BUN of 47, and creatinine of 3.70. Patient is being seen in the emergency department he is awaiting a bed on selective care unit, he will have another hemodialysis treatment today, he is feeling better today, he did experience some hypotension which has resolved. Patient is on midodrine at 10 mg 3 times a day and hydrocortisone at 10 mg twice daily On 03/02/2019 patient seen in follow-up on selective care unit, yesterday he had hemodialysis treatment again, with removal of 2500 cc of fluid, he is undergoing hemodialysis again today, and there has been 2900 mL of fluid removed. Lower extremity edema is improving, abdominal distention has improved, patient is breathing easier, currently he is on 2 L of oxygen with a pulse ox of 100%, he is afebrile, hemodynamically patient is stable, respirations are nonlabored, no fever or chills overnight, doing well, no new labs today. He is maintaining on midodrine, and oral hydrocortisone, in addition to levocarnitine, he is on oral Lasix, overall she is down by 5.7 kg since admission. Objective - Vital Signs Vital signs: Vital Signs Temp 97.5 F L 03/02/19 11:53 Pulse 80 03/02/19 11:54 Resp 20 03/02/19 11:53 BP 106/74 03/02/19 11:53 Pulse Ox 100 03/02/19 11:53 Intake & Output 03/01/19 03/02/19 03/02/19 18:59 06:59 18:59 Intake Total 240 180 Output Total 2500 2925 Balance -2260 -2745 Weight 90.718 kg 85 kg Intake: Oral 240 180 Output: Urine 25 Hemodialysis 2500 2900 Other: Voiding Method Urinal Urinal Urinal # Voids 1 1 1 # Bowel Movements 1 0 - Exam GENERAL EXAM: Alert, very pleasant, 83-year-old white male, with a fading facial bruising comfortable in no apparent distress. HEAD: Normocephalic/atraumatic. EYES: Normal reaction of pupils, equal size. Conjunctiva pink, sclera white. NOSE: Clear with pink turbinates. THROAT: No erythema or exudates. NECK: No masses, no JVD, no thyroid enlargement, no adenopathy. CHEST: No chest wall deformity. Symmetrical expansion. LUNGS: Equal air entry with diminished breath sounds at the bases CVS: Regular rate and rhythm, normal S1 and S2, no gallops, no murmurs, no rubs ABDOMEN: Soft, nontender. No hepatosplenomegaly, normal bowel sounds, no gu arding or rigidity. EXTREMITIES: No clubbing, no cyanosis, 2+ pulses and upper and lower extremities . Right arm fistula with positive bruit and thrill. MUSCULOSKELETAL: Muscle strength and tone normal. SPINE: No scoliosis or deformity SKIN: No rashes CENTRAL NERVOUS SYSTEM: Alert and oriented -3. No focal deficits, tone is normal in all 4 extremities. PSYCHIATRIC: Alert and oriented -3. Appropriate affect. Intact judgment and insight. - Labs CBC & Chem 7: 02/28/19 12:20 02/28/19 12:20 Labs: Microbiology - Last 24 Hours (Table) 02/28/19 13:35 Blood Culture - Preliminary Blood No Growth after 24 hours Assessment and Plan Plan: #1. Dyspnea and fluid overload related to acute exacerbation of congestive heart failure with mildly impaired systolic function and EF of 45-50% #2. End-stage renal disease on hemodialysis #3. Chronic atrial fibrillation on Coumadin #4. Fall at home following the aspiration episode #5. Injury to the right wrist and right hand sustained in the fall and x-ray of the wrist and hand were negative for fracture #6. Recent admission for a fall, left-sided pleural effusion #7. Gait dysfunction #8. History of left-sided thoracentesis with the bloody effusion, and negative pathology #9. Hypotention, chronic, on Midodrine and Cortef #10. Hyperlipidemia #11. Former smoker #12. Anemia of chronic kidney disease Plan: Patient is doing better, fluid volume status has improved, he is down by 5.7 kg since admission, lower extremity edema, and abdominal and truncal edema have significantly improved, patient is breathing easier, vital signs are stable, no hypotension, he had an additional 2-1/2 L of fluid removed yesterday and 2.9 L removed on today's dialysis, patient will have his regular hemodialysis day at the outpatient hemodialysis clinic, otherwise he is doing well, and could consider for discharge home today. I performed a history & physical examination of the patient and discussed their management with my nurse practitioner, Mariela Irene. I reviewed the nurse practitioner's note and agree with the documented findings and plan of care. Lung sounds are positive for diminished breath sounds with a few wheezes. The findings and the impression was discussed with the patient. I attest to the documentation by the nurse practitioner. Time with Patient: Less than 30
[2019-03-02] MEDS: CARBIDOPA-LEVODOPA 25-100 MG 1 EACH TAB PO SCH (12:49)
[2019-03-02] MEDS ORDERED: FUROSEMIDE 80 MG TAB PO SCH (16:00)
--- NOTE | 2019-03-02 21:02 | P.DS ---
Providers Date of admission: 02/28/19 14:36 Attending physician: Rodriguez Katz MD Consults: 02/28/19 14:35 Consult Physician Routine Consulting Provider: Jakub Thompson Consult Reason/Comments: Acute pulmonary edema Do you want consulting provider notified?: Yes 02/28/19 14:52 Consult Physician Urgent Consulting Provider: Vaibhav Ortiz Consult Reason/Comments: pulmonary congestion with hypotnesion Do you want consulting provider notified?: Yes Primary care physician: Vaibhav Ortiz Hospital Course: Diagnoses: Hypotension with tachycardia, resolved Pulmonary edema and fluid overload, improved significantly Recent history of Syncope , mostly vasovagal syncope associated with choking. Difficulty swallowing pulmonary congestion, present on admission Chronic bronchitis with chronic cough and dyspnea. Patient has COPD, does not look in acute exacerbation coagulopathy secondary to Coumadin Fall with head trauma End-stage kidney disease on hemodialysis Chronic atrial fibrillation on Coumadin Hyperlipidemia Hospital course: This is a pleasant 83 years old female with past medical history of atrial fibrillation, COPD, hypertension, hyperlipidemia, end-stage renal disease on hemodialysis. He was recently discharged from the hospital for vasovagal syncope with choking. Also he was complaining of from pulmonary congestion on admission. At that time he was discharged to subacute rehab on 02/16/2019 for two days. 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 no significant dyspnea , no chest pain . His help desk administrator Dr. MelaraBoyd him to the hospital. On admission patient was found it with fluid overload, these been treated with frequent hemodialysis on 2 days consecutively and IV Lasix 80 mg twice daily. Patient showed interval improvement. His breathing quietly. Vitas looks stable. And his blood pressure this morning at 101/76. On the day of discharge patient denies chest pain or dyspnea. No abdominal pain. No nausea vomiting. Tolerating diet well and has regular bowel movements. No fever. Patient was cleared for discharge by pulmonary and nephrology services Problems and management plan were discussed with the patient and he verbalized understanding and acceptance Patient was found stable and can be discharged home however he needs follow-up as an outpatient. Patient was instructed to follow up with PCP and refrigerator assembler within one week and patient agrees. pt agrees with appointment made for him with his help desk administrator and its timing and states he will f/u. Gen: patient is a AAOx3, no distress CVS: S1-S2, RRR, no murmur Lungs: B/L CTA, no wheezing Abdomen: soft, no distention, no tenderness, positive bowel sounds Extremity: no leg edema or induration Time spent more than 35 minutes Patient Condition at Discharge: Stable Plan - Discharge Summary New Discharge Prescriptions: New RX: Furosemide [Lasix] 80 mg PO BID@0900,1600 #60 tab Ipratropium-Albuterol Nebulize [Duoneb 0.5 mg-3 mg/3 ml Soln] 3 ml INHALATION QID 30 Days #6 box Continue RX: rOPINIRole HCL [Requip] 4 mg PO TID Prorenal + D 1 tab PO DAILY RX: levOCARNitine [Levocarnitine] 330 mg PO TID-W/MEALS RX: Ipratropium-Albuterol Nebulize [Duoneb 0.5 mg-3 mg/3 ml Soln] 3 ml INHALATION RT-TID ampul.neb RX: guaiFENesin [Mucinex] 600 mg PO Q12HR PRN tablet.er PRN Reason: Cough RX: Budesonide [Pulmicort] 1 mg INHALATION RT-BID nebu RX: Brimonidine Tartrate [Alphagan P 0.1% Ophth Soln] 1 drop BOTH EYES BID #1 bottle RX: Docusate [Colace] 100 mg PO BID PRN #14 cap PRN Reason: Constipation RX: Hydrocortisone [Cortef] 10 mg PO BID #60 tab RX: Tamsulosin HCl [Flomax] 0.4 mg PO BID #60 cap RX: Gabapentin [Neurontin] 100 mg PO TID #9 cap RX: Pravastatin Sodium [Pravachol] 20 mg PO HS #30 tab RX: Midodrine [ProAmatine] 10 mg PO AC-TID #180 tab RX: Carbidopa-Levodopa 25-100 mg [Sinemet 25-100 mg] 1 tab PO BID #60 tab RX: Budesonide-Formot 160-4.5 Mcg [Symbicort 160-4.5 Mcg Inhaler] 2 puff INHALATION RT-BID #1 inh RX: Timolol 0.5% Ophth Soln [Timoptic 0.5% Ophth Soln] 1 drop BOTH EYES DAILY #1 bottle RX: Albuterol Nebulized [Ventolin Nebulized] 2.5 mg INHALATION RT-QID #1 neb RX: Allopurinol [Zyloprim] 100 mg PO HS #30 tab Discontinued RX: Furosemide [Lasix] 60 mg PO BID RX: Doxepin [SINEquan] 10 mg PO HS Discharge Medication List RX: rOPINIRole HCL [Requip] 4 mg PO TID 12/27/17 [History] Prorenal + D 1 tab PO DAILY 01/24/19 [History] RX: levOCARNitine [Levocarnitine] 330 mg PO TID-W/MEALS 01/24/19 [History] RX: Budesonide [Pulmicort] 1 mg INHALATION RT-BID nebu 02/15/19 [Rx] RX: Ipratropium-Albuterol Nebulize [Duoneb 0.5 mg-3 mg/3 ml Soln] 3 ml INHALATION RT-TID ampul.neb 02/15/19 [Rx] RX: guaiFENesin [Mucinex] 600 mg PO Q12HR PRN tablet.er 02/15/19 [Rx] Ipratropium-Albuterol Nebulize [Duoneb 0.5 mg-3 mg/3 ml Soln] 3 ml INHALATION QID 30 Days #6 box 03/02/19 [Rx] RX: Albuterol Nebulized [Ventolin Nebulized] 2.5 mg INHALATION RT-QID #1 neb 03/02/19 [Rx] RX: Allopurinol [Zyloprim] 100 mg PO HS #30 tab 03/02/19 [Rx] RX: Brimonidine Tartrate [Alphagan P 0.1% Ophth Soln] 1 drop BOTH EYES BID #1 bottle 03/02/19 [Rx] RX: Budesonide-Formot 160-4.5 Mcg [Symbicort 160-4.5 Mcg Inhaler] 2 puff INHALATION RT-BID #1 inh 03/02/19 [Rx] RX: Carbidopa-Levodopa 25-100 mg [Sinemet 25-100 mg] 1 tab PO BID #60 tab 03/02/19 [Rx] RX: Docusate [Colace] 100 mg PO BID PRN #14 cap 03/02/19 [Rx] RX: Furosemide [Lasix] 80 mg PO BID@0900,1600 #60 tab 03/02/19 [Rx] RX: Gabapentin [Neurontin] 100 mg PO TID #9 cap 03/02/19 [Rx] RX: Hydrocortisone [Cortef] 10 mg PO BID #60 tab 03/02/19 [Rx] RX: Midodrine [ProAmatine] 10 mg PO AC-TID #180 tab 03/02/19 [Rx] RX: Pravastatin Sodium [Pravachol] 20 mg PO HS #30 tab 03/02/19 [Rx] RX: Tamsulosin HCl [Flomax] 0.4 mg PO BID #60 cap 03/02/19 [Rx] RX: Timolol 0.5% Ophth Soln [Timoptic 0.5% Ophth Soln] 1 drop BOTH EYES DAILY #1 bottle 03/02/19 [Rx] Follow up Appointment(s)/Referral(s): Vaibhav Ortiz MD [Primary Care Provider] - 03/07/19 1:45 pm (Wednesday) [facility], [NON-STAFF] - Jakub Thompson DO [STAFF PHYSICIAN] - 1 Week (scheduled dialysis) Activity/Diet/Wound Care/Special Instructions: low salt diet activity is limited till you see your doctor go to your scheduled hemodialysis therapy tomorrow 03/03/2018 Discharge Disposition: HOME SELF-CARE
== END 2019-03-02 13:48 | disposition home health service (06) | DRG 291 ==
LOC: EC 10:55 → 3SCARD 14:36
PROVIDERS: ADMIT Internal Medicine; ATTEND Internal Medicine
PROC: 5A1D70Z Performance of Urinary Filtration, Intermittent, Less than 6 Hours Per Day (ICD-10-PCS; principal; 2019-02-28)
DX: I13.2 Hypertensive heart and chronic kidney disease with heart failure and with stage 5 chronic kidney disease, or end stage renal disease (principal); I50.23 Acute on chronic systolic (congestive) heart failure; N18.6 End stage renal disease; I48.20 Chronic atrial fibrillation, unspecified; I95.89 Other hypotension; J44.9 Chronic obstructive pulmonary disease, unspecified; R13.10 Dysphagia, unspecified; D63.1 Anemia in chronic kidney disease; S69.91XA Unspecified injury of right wrist, hand and finger(s), initial encounter; S09.90XA Unspecified injury of head, initial encounter; E78.5 Hyperlipidemia, unspecified; H40.9 Unspecified glaucoma; H35.30 Unspecified macular degeneration; R26.2 Difficulty in walking, not elsewhere classified; Z79.51 Long term (current) use of inhaled steroids; Z79.52 Long term (current) use of systemic steroids; Z79.899 Other long term (current) drug therapy; Z99.2 Dependence on renal dialysis; Z98.890 Other specified postprocedural states; Z87.891 Personal history of nicotine dependence; Z80.9 Family history of malignant neoplasm, unspecified; Z82.5 Family history of asthma and other chronic lower respiratory diseases; Z82.49 Family history of ischemic heart disease and other diseases of the circulatory system; W19.XXXA Unspecified fall, initial encounter; Y92.009 Unspecified place in unspecified non-institutional (private) residence as the place of occurrence of the external cause
CPT/HCPCS: 36415; 71046; 80053; 83735; 83880; 84484; 85025; 85610; 85730; 87040; 90935; 93005; 94640; 96374; 96376; 99285

== ENCOUNTER 2019-04-02 07:28 | Inpatient (IN) | payer MEDICARE ==
[2019-04-02] MEDS ORDERED: SODIUM CHLORIDE 0.9% 1,000 ML IV STA (07:39)
--- NOTE | 2019-04-02 07:48 | ED ---
General Adult HPI - General Stated complaint: Hypotension Time Seen by Provider: 04/02/19 07:31 Source: patient, EMS, RN notes reviewed Mode of arrival: EMS Limitations: no limitations - History of Present Illness Initial comments: Patient is a pleasant 83-year-old male presenting to the emergency department from dialysis for hypotension. Blood pressure there was 70/40. Patient amiss to having cough and short of breath past few days. Patient has productive white sputum. No fevers. Patient does admit that his legs are swollen and states this is chronic. No chest pain. Pulse ox was 92 per EMS. Patient is somewhat a poor historian overall. - Related Data Home Medications Medication Instructions Recorded Confirmed rOPINIRole HCL [Requip] 4 mg PO TID 12/27/17 04/02/19 Prorenal + D 1 tab PO DAILY 01/24/19 04/02/19 levOCARNitine [Levocarnitine] 330 mg PO TID-W/MEALS 01/24/19 04/02/19 Docusate [Colace] 100 mg PO DAILY 04/02/19 04/02/19 Hydrocortisone [Cortef] 10 mg PO DAILY 04/02/19 04/02/19 Ipratropium-Albuterol Nebulize 3 ml INHALATION RT-QID 04/02/19 04/02/19 [Duoneb 0.5 mg-3 mg/3 ml Soln] Iron-27mg 27 mg PO DAILY 04/02/19 04/02/19 Magnesium Oxide [Reed] 500 mg PO DAILY 04/02/19 04/02/19 Vit A/Vit C/Vit E/Zinc/Copper 1 cap PO DAILY 04/02/19 04/02/19 [ICAPS SOFTGEL] levETIRAcetam [Keppra] 250 mg PO HS 04/02/19 04/02/19 Previous Rx's Medication Instructions Recorded guaiFENesin [Mucinex] 600 mg PO Q12HR PRN tablet.er 02/15/19 Allopurinol [Zyloprim] 100 mg PO HS #30 tab 03/02/19 Brimonidine Tartrate [Alphagan P 1 drop BOTH EYES BID #1 bottle 03/02/19 0.1% Ophth Soln] Budesonide-Formot 160-4.5 Mcg 2 puff INHALATION RT-BID #1 inh 03/02/19 [Symbicort 160-4.5 Mcg Inhaler] Carbidopa-Levodopa 25-100 mg 1 tab PO BID #60 tab 03/02/19 [Sinemet 25-100 mg] Furosemide [Lasix] 80 mg PO BID@0900,1600 #60 tab 03/02/19 Gabapentin [Neurontin] 100 mg PO TID #9 cap 03/02/19 Midodrine [ProAmatine] 10 mg PO AC-TID #180 tab 03/02/19 Pravastatin Sodium [Pravachol] 20 mg PO HS #30 tab 03/02/19 Tamsulosin HCl [Flomax] 0.4 mg PO BID #60 cap 03/02/19 Timolol 0.5% Ophth Soln [Timoptic 1 drop BOTH EYES DAILY #1 bottle 03/02/19 0.5% Ophth Soln] Allergies Allergy/AdvReac Type Severity Reaction Status Date / Time No Known Allergies Allergy Verified 04/02/19 10:05 Review of Systems ROS Statement: Those systems with pertinent positive or pertinent negative responses have been documented in the HPI. ROS Other: All systems not noted in ROS Statement are negative. Constitutional: Denies: fever Eyes: Denies: eye pain ENT: Denies: ear pain Respiratory: Reports: as per HPI, cough, dyspnea Cardiovascular: Denies: chest pain Endocrine: Reports: fatigue Genitourinary: Denies: dysuria Musculoskeletal: Denies: back pain Skin: Denies: rash Neurological: Denies: weakness Past Medical History Past Medical History: Atrial Fibrillation, COPD, Hyperlipidemia, Hypertension, Renal Disease Additional Past Medical History / Comment(s): HAS HEMODIALYSIS - MON,WED, FRI , GLAUCOMA,MACULAR DEGENERATION History of Any Multi-Drug Resistant Organisms: None Reported Past Surgical History: Hernia Repair Additional Past Surgical History / Comment(s): Mastoid surgery X3 Past Anesthesia/Blood Transfusion Reactions: Previous Problems w/ Anesthesia Additional Past Anesthesia/Blood Transfusion Reaction / Comment(s): STATES TOOK LONGER WAKING UP Past Psychological History: No Psychological Hx Reported Smoking Status: Former smoker Past Alcohol Use History: None Reported Past Drug Use History: None Reported - Past Family History Sister(s) Family Medical History: Cancer Son(s) Family Medical History: Cancer Father Family Medical History: Asthma Mother Family Medical History: Hypertension General Exam Limitations: no limitations General appearance: alert, in no apparent distress Head exam: Present: atraumatic Eye exam: Present: normal appearance, PERRL ENT exam: Present: normal oropharynx Neck exam: Present: normal inspection Respiratory exam: Present: wheezes, rales (Bilateral bases) Cardiovascular Exam: Present: irregular rhythm GI/Abdominal exam: Present: soft. Absent: tenderness Extremities exam: Present: pedal edema (+2 bilateral). Absent: calf tenderness Back exam: Present: normal inspection Neurological exam: Present: alert Psychiatric exam: Present: normal affect, normal mood Skin exam: Present: normal color. Absent: rash Course Vital Signs 04/02/19 04/02/19 04/02/19 07:40 07:47 08:13 Temperature 97.8 F 97.5 F L Pulse Rate 80 80 Pulse Rate [ 80 Beam Dyer Operator ] Respiratory 20 20 20 Rate Blood Pressure 75/47 72/47 O2 Sat by Pulse 92 L 91 L Oximetry 04/02/19 04/02/19 04/02/19 08:56 10:31 10:36 Temperature Pulse Rate 78 78 Pulse Rate [ Beam Dyer Operator ] Respiratory 18 Rate Blood Pressure 72/50 76/51 76/51 O2 Sat by Pulse 87 L 95 Oximetry - Reevaluation(s) Reevaluation #1: 04/02/19 09:[address] Thompson who is familiar with this patient. He does request second 500 mL bolus and Midodrine 10 mg 3 times a day. He will consult. He states started blood pressure is 80 systolic as this is his normal blood pressure. 04/02/19 09:26 Patient reevaluated. Systolic blood pressure 72. Dr. Sun has been paged for admission covered for Dr. Ortiz. EKG Findings - EKG Comments: EKG Findings:: A. fib with rate of 75. QRS 80. QT 388. QTC 433. Right axis. Normal QRS. Biphasic T waves V1 through 3. Procedures - Central Line Placement Left SC Consent Obtained: verbal consent, written consent Patient Placed on Monitor/Pulse Ox: Yes MD Prep: mask, gown, gloves Central Line Prep: Chlorhexidine scrub Local Anesthesia Used: Lidocaine 1% Amount of Anesthesia Used (mls): 2 Ultrasound Used for Placement: No Central Line Lumen Inserted: triple Central Line Position: good blood return, all ports aspirated, flushed, capped, sutured in place with 3-0 nylon Dressing Applied: Tegaderm Post Procedure X-Ray: tip of catheter in good position Patient Tolerated Procedure: well, no complications Complications: none Medical Decision Making - Lab Data Result diagrams: 04/02/19 08:01 04/02/19 08:01 Lab Results 04/02/19 04/02/19 04/02/19 Range/Units 08:01 08:01 08:01 WBC 9.0 (3.8-10.6) k/uL RBC 2.87 L (4.30-5.90) m/uL Hgb 10.1 L (13.0-17.5) gm/dL Hct 31.0 L (39.0-53.0) % MCV 108.1 H (80.0-100.0) fL MCH 35.3 H (25.0-35.0) pg MCHC 32.7 (31.0-37.0) g/dL RDW 14.4 (11.5-15.5) % Plt Count 103 L (150-450) k/uL Neutrophils % 86 % Lymphocytes % 4 % Monocytes % 6 % Eosinophils % 2 % Basophils % 1 % Neutrophils # 7.7 (1.3-7.7) k/uL Lymphocytes # 0.4 L (1.0-4.8) k/uL Monocytes # 0.5 (0-1.0) k/uL Eosinophils # 0.2 (0-0.7) k/uL Basophils # 0.1 (0-0.2) k/uL Macrocytosis Marked A PT (9.0-12.0) sec INR (<1.2) APTT (22.0-30.0) sec Sodium 136 L (137-145) mmol/L Potassium 5.1 (3.5-5.1) mmol/L Chloride 94 L (98-107) mmol/L Carbon Dioxide 32 H (22-30) mmol/L Anion Gap 10 mmol/L BUN 55 H (9-20) mg/dL Creatinine 4.60 H (0.66-1.25) mg/dL Est GFR (CKD-EPI)AfAm 12 (>60 ml/min/1.73 sqM) Est GFR (CKD-EPI)NonAf 11 (>60 ml/min/1.73 sqM) Glucose 130 H (74-99) mg/dL Plasma Lactic Acid Jack 1.6 (0.7-2.0) mmol/L Calcium 9.0 (8.4-10.2) mg/dL Magnesium 2.3 (1.6-2.3) mg/dL Total Bilirubin 1.2 (0.2-1.3) mg/dL AST 21 (17-59) U/L ALT 10 L (21-72) U/L Alkaline Phosphatase 268 H (38-126) U/L Troponin I (0.000-0.034) ng/mL NT-Pro-B Natriuret Pep pg/mL Total Protein 6.0 L (6.3-8.2) g/dL Albumin 3.0 L (3.5-5.0) g/dL 04/02/19 04/02/19 04/02/19 Range/Units 08:01 08:01 08:01 WBC (3.8-10.6) k/uL RBC (4.30-5.90) m/uL Hgb (13.0-17.5) gm/dL Hct (39.0-53.0) % MCV (80.0-100.0) fL MCH (25.0-35.0) pg MCHC (31.0-37.0) g/dL RDW (11.5-15.5) % Plt Count (150-450) k/uL Neutrophils % % Lymphocytes % % Monocytes % % Eosinophils % % Basophils % % Neutrophils # (1.3-7.7) k/uL Lymphocytes # (1.0-4.8) k/uL Monocytes # (0-1.0) k/uL Eosinophils # (0-0.7) k/uL Basophils # (0-0.2) k/uL Macrocytosis PT 11.0 (9.0-12.0) sec INR 1.0 (<1.2) APTT 30.8 H (22.0-30.0) sec Sodium (137-145) mmol/L Potassium (3.5-5.1) mmol/L Chloride (98-107) mmol/L Carbon Dioxide (22-30) mmol/L Anion Gap mmol/L BUN (9-20) mg/dL Creatinine (0.66-1.25) mg/dL Est GFR (CKD-EPI)AfAm (>60 ml/min/1.73 sqM) Est GFR (CKD-EPI)NonAf (>60 ml/min/1.73 sqM) Glucose (74-99) mg/dL Plasma Lactic Acid Jack (0.7-2.0) mmol/L Calcium (8.4-10.2) mg/dL Magnesium (1.6-2.3) mg/dL Total Bilirubin (0.2-1.3) mg/dL AST (17-59) U/L ALT (21-72) U/L Alkaline Phosphatase (38-126) U/L Troponin I 0.037 H* (0.000-0.034) ng/mL NT-Pro-B Natriuret Pep 00945 pg/mL Total Protein (6.3-8.2) g/dL Albumin (3.5-5.0) g/dL - Radiology Data Radiology results: image reviewed (Chest x-ray concerning for fluid overload.) Critical Care Time Critical Care Time: Yes Total Critical Care Time: 32 Disposition Clinical Impression: Hypotension, ESRD (end stage renal disease) on dialysis, Pulmonary edema Disposition: ADMITTED IP TO THIS [facility] Condition: Critical Is patient prescribed a controlled substance at d/c from ED?: No Decision Time: 09:27
[2019-04-02 08:16] LABS: Basophils # (A) 0.1 k/uL (0-0.2); Basophils % (A) 1 %; Eosinophils # (A) 0.2 k/uL (0-0.7); Eosinophils % (A) 2 %; HGB 10.1 gm/dL (13.0-17.5); Lymphocytes # (A) 0.4 k/uL (1.0-4.8); Lymphocytes % (A) 4 %; MCH 35.3 pg (25.0-35.0); MCHC 32.7 g/dL (31.0-37.0); MCV 108.1 fL (80.0-100.0); Macrocytosis Marked; Mean Platelet Volume 7.6; Monocytes # (A) 0.5 k/uL (0-1.0); Monocytes % (A) 6 %; Neutrophils # (A) 7.7 k/uL (1.3-7.7); Neutrophils % (A) 86 %; Platelet Count 103 k/uL (150-450); RBC 2.87 m/uL (4.30-5.90); RDW 14.4 % (11.5-15.5)
[2019-04-02 08:26] LABS: Partial Thromboplastin Time 30.8 sec (22.0-30.0)
[2019-04-02 08:27] LABS: Magnesium 2.3 mg/dL (1.6-2.3); Potassium 5.1 mmol/L (3.5-5.1); Total Bilirubin 1.2 mg/dL (0.2-1.3)
[2019-04-02] MEDS ORDERED: SODIUM CHLORIDE 0.9% 500 ML 500 ML IV STA (08:48)
[2019-04-02] MEDS ORDERED: MIDODRINE 5 MG TAB PO SCH ×2 (09:00→12:30)
[2019-04-02] MEDS ORDERED: MIDODRINE 5 MG TAB PO ONE (09:00)
--- NOTE | 2019-04-02 09:01 | XR ---
EXAMINATION TYPE: XR chest 2V DATE OF EXAM: 04/02/2019 COMPARISON: 03/07/2019 HISTORY: 83-year-old male with weakness, difficulty breathing TECHNIQUE: AP and lateral views FINDINGS: Heart is mildly enlarged. Increasing interstitial opacities. More focal left midlung and patchy bibas ilar opacities. Increased trace right pleural effusion and increasing [id number] left pleural effusion with left basilar opacity. Chronic full-thickness rotator cuff tear on both sides. IMPRESSION: 1. Developing interstitial lung disease. Given slight increasing [id number] left effusion and increasing trace right effusion. Correlate for CHF with interstitial pulmonary edema. 2. More patchy and confluent airspace disease left midlung and at the lung bases could represent area s of more confluent edema versus infiltrate.
[2019-04-02] MEDS ORDERED: NALOXONE 0.4 MG/ML 1 ML VIAL IV PRN (09:31)
[2019-04-02] MEDS ORDERED: IPRATROPIUM-ALBUTEROL 3 ML NEB INHALATION PRN (09:31)
--- NOTE | 2019-04-02 10:45 | P.NPCON ---
History of Present Illness - Reason for Consult end stage renal disease - History of Present Illness Reason for consultation: End-stage renal disease History of present illness: Patient is a 83-year-old male seen in renal consultation for end-stage renal disease. He is maintained on hemodialysis on Wednesday and Wednesday schedule. Patient went for hemodialysis this morning due to the iday schedule and he was sent to the hospital due to hypotension. Patient's blood pressure was in the systolic 70s. He is also noted to be quite dyspneic with a productive cough. Patient did receive 500 mL bolus in the ER. He also received 2 doses of midodrine 10 mg. Blood pressure is staying in the systolic 70s. Patient is quite lethargic. He is afebrile. Chest x-ray was suggestive of vascular congestion and pulmonary edema. Patient tends to be volume overloaded. It is difficult to get adequate ultrafiltration due to hypotension. Vital signs are stable. General: The patient appeared well nourished and normally developed. HEENT: Head exam is unremarkable. Neck is without jugular venous distension. LUNGS: Lungs are clear to auscultation and percussion. Breath sounds decreased. HEART: Rate and Rhythm are regular. First and second heart sounds normal. No murmurs, rubs or gallops. ABDOMEN: Abdominal exam reveals normal bowel sounds. Non-tender. EXTREMITITES: 2+ edema. Past Medical History Past Medical History: Atrial Fibrillation, COPD, Hyperlipidemia, Hypertension, Renal Disease Additional Past Medical History / Comment(s): HAS HEMODIALYSIS - WED,WED, WED , GLAUCOMA,MACULAR DEGENERATION History of Any Multi-Drug Resistant Organisms: None Reported Past Surgical History: Hernia Repair Additional Past Surgical History / Comment(s): Mastoid surgery X3 Past Anesthesia/Blood Transfusion Reactions: Previous Problems w/ Anesthesia Additional Past Anesthesia/Blood Transfusion Reaction / Comment(s): STATES TOOK LONGER WAKING UP Past Psychological History: No Psychological Hx Reported Smoking Status: Former smoker Past Alcohol Use History: None Reported Past Drug Use History: None Reported - Past Family History Sister(s) Family Medical History: Cancer Son(s) Family Medical History: Cancer Father Family Medical History: Asthma Mother Family Medical History: Hypertension Medications and Allergies Home Medications Medication Instructions Recorded Confirmed Type rOPINIRole HCL [Requip] 4 mg PO TID 12/27/17 04/02/19 History Prorenal + D 1 tab PO DAILY 01/24/19 04/02/19 History levOCARNitine [Levocarnitine] 330 mg PO TID-W/MEALS 01/24/19 04/02/19 History guaiFENesin [Mucinex] 600 mg PO Q12HR PRN tablet.er 02/15/19 04/02/19 Rx Allopurinol [Zyloprim] 100 mg PO HS #30 tab 03/02/19 04/02/19 Rx Brimonidine Tartrate [Alphagan P 1 drop BOTH EYES BID #1 bottle 03/02/19 04/02/19 Rx 0.1% Ophth Soln] Budesonide-Formot 160-4.5 Mcg 2 puff INHALATION RT-BID #1 inh 03/02/19 04/02/19 Rx [Symbicort 160-4.5 Mcg Inhaler] Carbidopa-Levodopa 25-100 mg 1 tab PO BID #60 tab 03/02/19 04/02/19 Rx [Sinemet 25-100 mg] Furosemide [Lasix] 80 mg PO BID@0900,1600 #60 tab 03/02/19 04/02/19 Rx Gabapentin [Neurontin] 100 mg PO TID #9 cap 03/02/19 04/02/19 Rx Midodrine [ProAmatine] 10 mg PO AC-TID #180 tab 03/02/19 04/02/19 Rx Pravastatin Sodium [Pravachol] 20 mg PO HS #30 tab 03/02/19 04/02/19 Rx Tamsulosin HCl [Flomax] 0.4 mg PO BID #60 cap 03/02/19 04/02/19 Rx Timolol 0.5% Ophth Soln [Timoptic 1 drop BOTH EYES DAILY #1 bottle 03/02/19 04/02/19 Rx 0.5% Ophth Soln] Docusate [Colace] 100 mg PO DAILY 04/02/19 04/02/19 History Hydrocortisone [Cortef] 10 mg PO DAILY 04/02/19 04/02/19 History Ipratropium-Albuterol Nebulize 3 ml INHALATION RT-QID 04/02/19 04/02/19 History [Duoneb 0.5 mg-3 mg/3 ml Soln] Iron-27mg 27 mg PO DAILY 04/02/19 04/02/19 History Magnesium Oxide [Reed] 500 mg PO DAILY 04/02/19 04/02/19 History Vit A/Vit C/Vit E/Zinc/Copper 1 cap PO DAILY 04/02/19 04/02/19 History [ICAPS SOFTGEL] levETIRAcetam [Keppra] 250 mg PO HS 04/02/19 04/02/19 History Allergies Allergy/AdvReac Type Severity Reaction Status Date / Time No Known Allergies Allergy Verified 04/02/19 10:05 Physical Exam Vitals: Vital Signs Temp Pulse Pulse Resp BP Pulse Ox 04/02/19 10:36 76/51 04/02/19 10:31 78 76/51 95 04/02/19 08:56 78 18 72/50 87 L 04/02/19 08:13 80 20 04/02/19 07:47 97.5 F L 80 20 72/47 91 L 04/02/19 07:40 97.8 F 80 20 75/47 92 L Intake and Output 04/01/19 04/02/19 04/02/19 22:59 06:59 14:59 Other: Weight 95.3 kg Results - Lab Results Most recent lab results Calcium 9.0 mg/dL (8.4-10.2) 04/02/19 08:01 Magnesium 2.3 mg/dL (1.6-2.3) 04/02/19 08:01 04/02/19 08:01 04/02/19 08:01 Assessment and Plan Plan: Assessment: 1. End-stage renal disease maintained on hemodialysis on Wednesday schedule. 2. Chronic hypotension maintained on midodrine. Patient did receive 1 L normal saline bolus in the ER. Rule out adrenal insufficiency. 3. Acute on chronic systolic CHF with ejection fraction of 45-50%. 4. Volume overload. Plan: Maintain midodrine 10 mg 3 times daily. Check a.m. cortisol level. Hemodialysis today. I will use low blood flows and dialysate due to hypotension. May need vasopressor support. Follow-up cultures. Thank you for the consultation. I will continue to follow the patient with you during his hospital stay.
--- NOTE | 2019-04-02 11:17 | XR ---
EXAMINATION TYPE: XR chest 1V portable DATE OF EXAM: 04/02/2019 Comparison: Earlier today Clinical History: 83-year-old male line placement. Shortness of breath. Findings: Left subclavian CVC tip seen to the level of the brachiocephalic vein confluence. Otherwise, cardiome maki with diffuse interstitial and patchy airspace opacities and underlying left pleural effusion are unchanged. Impression: Stable exam with left pleural effusion and adjacent atelectasis and/or consolidation. Multifocal inte rstitial and patchy airspace disease. Possible interstitial pulmonary edema versus multifocal pneumon ia. New left subclavian CVC tip seen to the level of the brachiocephalic vein confluence.
[2019-04-02 11:36] LABS: Glucose,Whole Blood 118 mg/dL (75-99)
[2019-04-02] MEDS: NOREPINEPHRINE 32 MG in SODIUM CHLORIDE 0.9% 218 ML IV SCH (11:45)
[2019-04-02] MEDS: levOCARNitine (WITH SUGAR) 100 MG/ML BOTTLE PO SCH ×2 (13:12→17:19)
[2019-04-02] MEDS: MIDODRINE 5 MG TAB PO SCH ×2 (13:14→17:18)
[2019-04-02] MEDS: rOPINIRole HCL 4 MG TABLET PO SCH ×2 (13:25→20:11)
[2019-04-02] MEDS: DEXTROSE 5%-0.45% NACL 1,000 ML IV SCH (15:02)
[2019-04-02] MEDS: IPRATROPIUM-ALBUTEROL 3 ML NEB INHALATION SCH ×2 (15:41→20:28)
[2019-04-02] MEDS: GABAPENTIN 100 MG CAP PO SCH ×2 (17:18→20:14)
--- NOTE | 2019-04-02 18:09 | P.HPIM ---
History of Present Illness H&P Date: 04/02/19 Chief Complaint: Fluid overload and hypotension Patient is a 83-year-old male with a known history of chronic atrial fibrillation on anticoagulation with Eliquis, COPD, hypertension, hyperlipidemia and ESRD on hemodialysis Wednesday and Wednesday. Due to change in sched uled during holiday time patient was scheduled for hemodialysis today. Patient was found to be hypotensive while he was at hemodialysis center with SBP and 70s. Patient was seen by Dr. Whitfield and recommended him to go to ER. Patient otherwise denied any cough or sputum production. No fever no chills. Patient was given 5 mL fluid bolus in the ER. Patient is also taking midodrine at home which was given. Patient is lethargic and also required BiPAP. Denied any chest pain. No nausea vomiting or abdominal pain or diarrhea. Patient does have worsening bilateral leg swelling. Chest x-ray showed developing interstitial lung disease. Increase in small to moderate pleural effusion. Correlate for CHF and interstitial pulmonary edema. BNP 89, 700 Hemoglobin 10.1 Elevated BUN and creatinine level. Review of Systems Constitutional: Patient denies any fever or chills . No generalized weakness or weight loss. Abdomen: Patient denied nausea vomiting and diarrhea and abdominal pain. Cardiovascular: Patient denies any chest pain or short of breath no palpitations. Respiratory: patient denied any cough is from production. No shortness of br eath Neurologic: Patient denied any numbness or tingling headache. Patient does have hearing difficulty and also lethargic. Complete review of systems could not be obtained from the patient. Past Medical History Past Medical History: Atrial Fibrillation, COPD, Hyperlipidemia, Hypertension, Renal Disease Additional Past Medical History / Comment(s): HAS HEMODIALYSIS - WED,WED, WED , GLAUCOMA,MACULAR DEGENERATION History of Any Multi-Drug Resistant Organisms: None Reported Past Surgical History: Hernia Repair Additional Past Surgical History / Comment(s): Mastoid surgery X3 Past Anesthesia/Blood Transfusion Reactions: Previous Problems w/ Anesthesia Additional Past Anesthesia/Blood Transfusion Reaction / Comment(s): STATES TOOK LONGER WAKING UP Past Psychological History: No Psychological Hx Reported Smoking Status: Former smoker Past Alcohol Use History: None Reported Past Drug Use History: None Reported - Past Family History Sister(s) Family Medical History: Cancer Son(s) Family Medical History: Cancer Father Family Medical History: Asthma Mother Family Medical History: Hypertension Medications and Allergies Home Medications Medication Instructions Recorded Confirmed Type rOPINIRole HCL [Requip] 4 mg PO TID 12/27/17 04/02/19 History Prorenal + D 1 tab PO DAILY 01/24/19 04/02/19 History levOCARNitine [Levocarnitine] 330 mg PO TID-W/MEALS 01/24/19 04/02/19 History guaiFENesin [Mucinex] 600 mg PO Q12HR PRN tablet.er 02/15/19 04/02/19 Rx Allopurinol [Zyloprim] 100 mg PO HS #30 tab 03/02/19 04/02/19 Rx Brimonidine Tartrate [Alphagan P 1 drop BOTH EYES BID #1 bottle 03/02/19 04/02/19 Rx 0.1% Ophth Soln] Budesonide-Formot 160-4.5 Mcg 2 puff INHALATION RT-BID #1 inh 03/02/19 04/02/19 Rx [Symbicort 160-4.5 Mcg Inhaler] Carbidopa-Levodopa 25-100 mg 1 tab PO BID #60 tab 03/02/19 04/02/19 Rx [Sinemet 25-100 mg] Furosemide [Lasix] 80 mg PO BID@0900,1600 #60 tab 03/02/19 04/02/19 Rx Gabapentin [Neurontin] 100 mg PO TID #9 cap 03/02/19 04/02/19 Rx Midodrine [ProAmatine] 10 mg PO AC-TID #180 tab 03/02/19 04/02/19 Rx Pravastatin Sodium [Pravachol] 20 mg PO HS #30 tab 03/02/19 04/02/19 Rx Tamsulosin HCl [Flomax] 0.4 mg PO BID #60 cap 03/02/19 04/02/19 Rx Timolol 0.5% Ophth Soln [Timoptic 1 drop BOTH EYES DAILY #1 bottle 03/02/19 Rx 0.5% Ophth Soln] Docusate [Colace] 100 mg PO DAILY 04/02/19 04/02/19 History Hydrocortisone [Cortef] 10 mg PO DAILY 04/02/19 04/02/19 History Ipratropium-Albuterol Nebulize 3 ml INHALATION RT-QID 04/02/19 04/02/19 History [Duoneb 0.5 mg-3 mg/3 ml Soln] Iron-27mg 27 mg PO DAILY 04/02/19 04/02/19 History Magnesium Oxide [Reed] 500 mg PO DAILY 04/02/19 04/02/19 History Vit A/Vit C/Vit E/Zinc/Copper 1 cap PO DAILY 04/02/19 04/02/19 History [ICAPS SOFTGEL] levETIRAcetam [Keppra] 250 mg PO HS 04/02/19 04/02/19 History Allergies Allergy/AdvReac Type Severity Reaction Status Date / Time No Known Allergies Allergy Verified 04/02/19 10:05 Physical Exam Vitals: Vital Signs Temp Pulse Pulse Resp BP Pulse Ox 04/02/19 13:30 77 19 104/72 98 04/02/19 13:15 81 24 104/76 96 04/02/19 13:00 79 11 L 104/74 96 04/02/19 12:45 82 30 H 99/72 91 L 04/02/19 12:30 72 17 105/71 97 04/02/19 12:20 71 15 105/71 97 04/02/19 12:10 73 29 H 100/69 90 L 04/02/19 12:00 74 21 90/62 89 L 04/02/19 11:50 73 20 90/62 93 L 04/02/19 11:43 97.5 F L 78 18 73/52 91 L 04/02/19 11:40 97.6 F 77 12 73/54 90 L 04/02/19 11:32 97.6 F 70 18 73/54 80 L 04/02/19 11:10 78 73/52 91 L 04/02/19 10:36 76/51 04/02/19 10:31 78 76/51 95 04/02/19 08:56 78 18 72/50 87 L 04/02/19 08:13 80 20 04/02/19 07:47 97.5 F L 80 20 72/47 91 L 04/02/19 07:40 97.8 F 80 20 75/47 92 L Intake and Output 04/01/19 04/02/19 04/02/19 22:59 06:59 14:59 Intake Total 1060 Output Total 0 Balance 1060 Intake: IV 60 D5 0.45 NACL 60 Amount of Fluid Infused ( 1000 ml) Output: Urine 0 Other: Weight 95.3 kg PHYSICAL EXAMINATION: Patient is lying in the bed comfortably, no acute distress, awake alert and oriented. Lethargic.. HEENT: Normocephalic. Neck is supple. Pupils reactive. Nostrils clear. Oral cavity is moist. Ears reveal no drainage. Neck reveals no JVD, carotid bruits, or thyromegaly. CHEST EXAMINATION: Trachea is central. Symmetrical expansion. Bibasilar diminished air entry. Scattered rhonchi. CARDIAC: Normal S1, S2 with no gallops. No murmurs . Irregularly irregular rhythm ABDOMEN: Soft. Bowel sounds normal. No organomegaly. No abdominal bruits. Extremities: 2+ bilateral pitting edema. No clubbing or cyanosis Neurologically awake, alert, oriented but lethargic. No focal deficits noted Skin: No rash or skin lesions. Psychiatric: Coperative. Musculoskeletal: No joint swelling or deformity. Normal range of motion. Results CBC & Chem 7: 04/02/19 08:01 04/02/19 08:01 Labs: Abnormal Lab Results - Last 24 Hours (Table) 04/02/19 04/02/19 04/02/19 Range/Units 08:01 08:01 08:01 RBC 2.87 L (4.30-5.90) m/uL Hgb 10.1 L (13.0-17.5) gm/dL Hct 31.0 L (39.0-53.0) % MCV 108.1 H (80.0-100.0) fL MCH 35.3 H (25.0-35.0) pg Plt Count 103 L (150-450) k/uL Lymphocytes # 0.4 L (1.0-4.8) k/uL Macrocytosis Marked A APTT 30.8 H (22.0-30.0) sec Sodium 136 L (137-145) mmol/L Chloride 94 L (98-107) mmol/L Carbon Dioxide 32 H (22-30) mmol/L BUN 55 H (9-20) mg/dL Creatinine 4.60 H (0.66-1.25) mg/dL Glucose 130 H (74-99) mg/dL POC Glucose (mg/dL) (75-99) mg/dL ALT 10 L (21-72) U/L Alkaline Phosphatase 268 H (38-126) U/L Troponin I (0.000-0.034) ng/mL Total Protein 6.0 L (6.3-8.2) g/dL Albumin 3.0 L (3.5-5.0) g/dL 04/02/19 04/02/19 Range/Units 08:01 11:34 RBC (4.30-5.90) m/uL Hgb (13.0-17.5) gm/dL Hct (39.0-53.0) % MCV (80.0-100.0) fL MCH (25.0-35.0) pg Plt Count (150-450) k/uL Lymphocytes # (1.0-4.8) k/uL Macrocytosis APTT (22.0-30.0) sec Sodium (137-145) mmol/L Chloride (98-107) mmol/L Carbon Dioxide (22-30) mmol/L BUN (9-20) mg/dL Creatinine (0.66-1.25) mg/dL Glucose (74-99) mg/dL POC Glucose (mg/dL) 118 H (75-99) mg/dL ALT (21-72) U/L Alkaline Phosphatase (38-126) U/L Troponin I 0.037 H* (0.000-0.034) ng/mL Total Protein (6.3-8.2) g/dL Albumin (3.5-5.0) g/dL Thrombosis Risk Factor Assmnt - DVT/VTE Prophylaxis DVT/VTE Prophylaxis: Pharmacologic Prophylaxis ordered - Choose All That Apply Any of the Below Risk Factors Present?: Yes Each Factor Represents 1 point: Abnormal pulmonary function (COPD), Heart failure (<1month), Medical pt on bed rest Other Risk Factors: Yes Each Risk Factor Represents 2 Points: Central venous access, Patient confined to bed Each Risk Factor Represents 3 Points: Age 75 years or older Other congenital or acquired thrombophilia - If yes, enter type in comment: No Thrombosis Risk Factor Assessment Total Risk Factor Score: 10 Thrombosis Risk Factor Assessment Level: High Risk Assessment and Plan Assessment: hypotension requiring pressor support. Chronic hypotension on Midodrin at home Acute on chronic CHF with systolic dysfunction ejection fraction 45-50% Fluid overload ESRD on hemodialysis Wednesday Chronic atrial fibrillation on anticoagulation with Eliquis. Rate controlled now. Hypertension Hyperlipidemia COPD not in exacerbation Parkinson's disease Previous history of smoking Plan: Patient was given 500 mL fluid bolus in the ER. Currently on pressor support. Nephrology is planning for hemodialysis today. Patient was started on empiric antibiotics. Rule out infection. Follow-up culture reports. Cortisol level was ordered. Continue with Midodrin. Continue with home medications and follow closely. Nephrology and critical care team and is on board. Further recommendations based on clinical course. Prognosis is guarded. Time with Patient: Greater than 30
--- NOTE | 2019-04-02 20:04 | CONS ---
CONSULTATION PULMONARY CRITICAL CARE CONSULTATION: DATE OF CONSULTATION: 04/02/2019 REASON FOR CONSULTATION: Hypotension. 83-year-old male with a history of end-stage renal disease, currently on 3 time a week hemodialysis. The patient went for dialysis today because of the and apparently his blood pressure there at the dialysis center was only 70/40. Because of that he was sent to the emergency room to be evaluated. In addition to that, he has been coughing and he has been short of breath more than normal and he is producing some yellow/brown phlegm. No fever or chills. No chest pain or chest discomfort. He has significant lower extremity edema, but that is more chronic in nature. He was seen in the emergency room by Dr. Aaron and a central line was placed for the administration of norepinephrine, which is currently running at 4.7 mcg/minute. He is currently getting dialyzed with a goal of removal of 3 L of fluid. The patient does have a left subclavian in place and also the patient is getting D5 0.45 at 20 mL an hour. When he first arrived, we had him placed on BiPAP at 12 and 5 and 100%. Since dialysis has begun and fluid has been removed, he has been transitioned over to 6 L. His breathing is improved but he is still coughing and congested. As mentioned, he is bringing up yellow brown phlegm. His medications include Requip, ProRenal Plus D, levocarnitine, Colace, Cortef, DuoNeb, iron, Mag-Ox, ICaps soft gel, Keppra, Mucinex, Zyloprim, eye drops, Symbicort, Sinemet, Lasix, Neurontin, midodrine, Pravachol, and Flomax. ALLERGIES: Denied. MEDICAL HISTORY: Among other things, atrial fibrillation, COPD, hyperlipidemia, hypertension, end-stage renal disease with typical hemodialysis on Wednesday, Wednesday, Wednesday, glaucoma, and macular degeneration. SURGICAL HISTORY: Includes among other things, mastoid surgery and hernia repair. SOCIAL HISTORY: Positive for previous heavy tobacco use. Does not smoke currently. No alcohol or illicit drug use. FAMILY HISTORY: Positive for sister with cancer, a son with cancer, a father with asthma and a mother with hypertension. REVIEW OF SYSTEMS: CONSTITUTIONAL: Weakness. NEUROLOGIC: Negative. HEENT: Negative. CARDIOVASCULAR: Hypotension. PULMONARY: Shortness of breath, chest congestion, cough and yellow-brown phlegm production. GI: Negative. : Negative. RHEUMATOLOGIC: Negative. IMMUNOLOGIC: Negative. ENDOCRINOLOGIC: Negative. DERMATOLOGIC: Negative. PHYSICAL EXAMINATION: VITAL SIGNS: Current vital signs are reviewed. Temperature 98, heart rate 86, respiratory rate 18, blood pressure 102/72, mean 82, 6 L saturation is 95%. Appears in no acute distress. He does have a wet congested cough. No audible wheezing or use of accessory muscles. No conversational dyspnea. HEENT examination is grossly unremarkable. Mucous membranes are moist. NECK: Supple. Full range of motion. No adenopathy or thyromegaly. Neck veins are flat. CARDIOVASCULAR examination reveals irregular rhythm and rate. Heart rate about 86 beats per minute. He likely is in atrial fibrillation. No distinct murmur noted. LUNGS: Reveal coarse rhonchi. There are some crackles at the bases. Breath sounds equal bilaterally. His cough is wet and congested. ABDOMEN: Soft. EXTREMITIES: Reveal edema. SKIN: Without rash. Areas of ecchymoses are noted. NEUROLOGIC: Examination is brief but nonfocal. LABS: Reviewed. White count 9, hemoglobin 10.1, hematocrit 31.0, platelet count 103,000. PT/INR normal. PTT 30.8. Sodium 136, potassium 5.1, chloride 94, CO2 is 32. Anion gap is 10. BUN and creatinine were 55 and 4.60. His alkaline phosphatase is 268. Troponin was 0.037. N terminal proBNP 89,700. Albumin 3. Microbiology is pending or negative. Chest x-ray shows evidence of fluid overload with interstitial edema and small effusions. In addition, there is a patch in the left mid lung which may be more of a consolidative process such as pneumonia. MEDICATIONS: Reviewed. He is currently not on any antibiotics. They will be started. ASSESSMENT: 1. Profound hypotension requiring fluid administration and norepinephrine, rule out sepsis. 2. End-stage renal disease, currently on Wednesday, Wednesday, Wednesday hemodialysis. 3. Shortness of breath, likely a combination of both fluid overload/possible pneumonia left mid lung. 4. Rule out sepsis. 5. History of chronic obstructive pulmonary disease from previous heavy tobacco use. 6. History of atrial fibrillation. 7. History of hyperlipidemia. 8. History of hypertension. 9. History of glaucoma. 10.Macular degeneration. PLAN: I will add some antibiotics on this patient. We will make sure he is back on his normal COPD medications. Continue with norepinephrine to maintain normal mean. Hemodialysis today to remove 3 L of fluid. Antibiotics to be added for possible pneumonia, left mid lung. Additional recommendations and suggestions forthcoming. Prognosis is guarded. MMJIMBOL / ISABELLAN: [id number] /
[2019-04-02] MEDS: BRIMONIDINE TARTRATE 0.2% DROPS 5 ML BTL BOTH EYES SCH (20:11)
[2019-04-02] MEDS: levETIRAcetam 250 MG TAB PO SCH (20:12)
[2019-04-02] MEDS: PRAVASTATIN SODIUM 20 MG TAB PO SCH (20:12)
[2019-04-02] MEDS: HEPARIN SODIUM,PORCINE 5,000 UNIT/ML 1 ML VIAL SQ SCH (20:14)
[2019-04-02] MEDS: PIPERACILLIN-TAZOBACTAM 3.375 GM in SODIUM CHLORIDE 0.9% 100 ML IVPB SCH (20:14)
[2019-04-02] MEDS: ALLOPURINOL 100 MG TAB PO SCH (20:14)
[2019-04-02] MEDS: CARBIDOPA-LEVODOPA 25-100 MG 1 EACH TAB PO SCH (20:15)
--- NOTE | 2019-04-02 20:25 | CONS ---
CONSULTATION Mr. Harper is an 83-year-old male who presented with symptoms of dizziness while at the dialysis unit. He has a known history of end-stage renal disease on hemodialysis, prior history of hypotension, history of chronic persistent atrial fibrillation followed by Dr. Serrano and history of mild cardiomyopathy. He presented to dialysis today and his blood pressure was low. In view of that he was referred to the emergency room and subsequently admitted. The patient history is obtained from him and his . He is in the ICU on BiPAP and low-dose norepinephrine. He denies any chest pain. He has no palpitation. He has a prior history of dizziness and syncope. He has peripheral edema. No clear PND. No orthopnea. He has been on dialysis almost for 2 years. He has underwent an echocardiogram most recently in the January of 2018 that revealed ejection fraction of 45-50%. MEDICATIONS: At home included Requip, Keppra, Flomax, pravastatin 20 mg daily, Cortef, Neurontin, Lasix 80 mg twice a day, Sinemet, Zyloprim. REVIEW OF SYSTEMS: RESPIRATORY SYSTEM: He has dyspnea on exertion, history of chronic obstructive lung disease. He has been followed by Dr. Ortiz on a regular basis. GI SYSTEM: No recent GI bleeding. No peptic ulcer disease. SYSTEM: End stage renal disease with minimal urine output. NERVOUS SYSTEM: No history of recent stroke. PHYSICAL EXAMINATION: He is an 83-year-old male, alert, on BiPAP. Blood pressure 104/70 with a heart rate in 70s. HEAD: Normocephalic. EYES: Sclerae nonicteric. NECK: No bruit appreciated. LUNGS: With decreased air exchange anteriorly. No wheezes. HEART: Irregular regular. S1, S2. No S3. No rub with a systolic murmur. ABDOMEN: Soft, nontender. Positive bowel sounds no organomegaly. EXTREMITIES: +2 edema bilaterally. LAB DATA: Lab data revealed a BUN and creatinine 55 and 4.6, potassium 5.1, hemoglobin of 10.1. [place]onin 0[place] [address]. His chest x-ray shows a left pleural effusion, unchanged. His EKG reveals atrial fibrillation with right axis deviation and incomplete right bundle branch block. IMPRESSION: 1. Hypotension with the inability to perform dialysis today. 2. Symptoms of progressive dyspnea, most likely related to the fluid overload related to the renal failure in a patient with mild history of cardiomyopathy. 3. History of atrial fibrillation. Patient has been on anticoagulation in the past but appears to be on hold at this time. I will review those findings. The patient was discharged from the hospital on the 02 of March and at that time had evidence of coagulopathy and it does not appear that Coumadin was re-initiated. 4. History of chronic obstructive lung disease. 5. History of mild cardiomyopathy. 6. Recent falls. 7. Anemia. RECOMMENDATION: From the cardiac standpoint, the patient is scheduled to undergo dialysis today with hopefully removal of fluid. He will continue the norepinephrine that will be tapered depending on his blood pressure. On his lab data his INR is 1.0. I will review the reason why he is not back on Coumadin and consider reinitiating anticoagulation either with Coumadin or Eliquis if it is agreeable with Dr. Thompson. Thank you for this consult. We will follow with you. QUEENIE / ISABELLAN: [id number] /
[2019-04-02] MEDS: BUDESONIDE 1 MG/2 ML NEBU INHALATION SCH (20:28)
[2019-04-02] MEDS: FORMOTEROL FUMARATE 20 MCG/2 ML NEBU INHALATION SCH (20:28)
[2019-04-02] MEDS ORDERED: TAMSULOSIN 0.4 MG CAP.ER.24H PO SCH (21:00)
[2019-04-03 05:48] LABS: Basophils # (A) 0.1 k/uL (0-0.2); Basophils % (A) 1 %; Eosinophils # (A) 0.3 k/uL (0-0.7); Eosinophils % (A) 4 %; HCT 36.1 % (39.0-53.0); HGB 11.4 gm/dL (13.0-17.5); Hypochromasia Slight; Lymphocytes # (A) 0.4 k/uL (1.0-4.8); Lymphocytes % (A) 5 %; MCH 34.5 pg (25.0-35.0); MCHC 31.6 g/dL (31.0-37.0); Macrocytosis Marked; Mean Platelet Volume 6.9; Monocytes # (A) 0.5 k/uL (0-1.0); Monocytes % (A) 6 %; Neutrophils # (A) 6.8 k/uL (1.3-7.7); Neutrophils % (A) 81 %; Platelet Count 126 k/uL (150-450); RBC 3.31 m/uL (4.30-5.90); RDW 14.4 % (11.5-15.5); WBC 8.3 k/uL (3.8-10.6)
[2019-04-03 06:01] LABS: Calcium 9.3 mg/dL (8.4-10.2); Potassium 4.9 mmol/L (3.5-5.1)
[2019-04-03] MEDS: MIDODRINE 5 MG TAB PO SCH ×3 (06:41→17:10)
[2019-04-03] MEDS: levOCARNitine (WITH SUGAR) 100 MG/ML BOTTLE PO SCH ×3 (06:42→17:10)
[2019-04-03] MEDS: IPRATROPIUM-ALBUTEROL 3 ML NEB INHALATION SCH ×4 (07:14→20:36)
[2019-04-03] MEDS: FORMOTEROL FUMARATE 20 MCG/2 ML NEBU INHALATION SCH ×2 (07:14→20:36)
[2019-04-03] MEDS: BUDESONIDE 1 MG/2 ML NEBU INHALATION SCH ×2 (07:14→20:36)
--- NOTE | 2019-04-03 07:27 | XR ---
EXAMINATION TYPE: XR chest 1V DATE OF EXAM: 04/03/2019 COMPARISON: 04/02/2019 INDICATION: Short of breath TECHNIQUE: Single frontal view of the chest is obtained. FINDINGS: The heart size is mildly prominent. The pulmonary vasculature is normal. There are scattered areas of irregular increased densities in the right lower and left mid lung prese nt previously. Small left pleural effusion is present. Left central venous catheter tip in the distal brachiocephalic vein region. IMPRESSION: 1. Stable bilateral infiltrates and small left pleural effusion. 2. Left central venous catheter
--- NOTE | 2019-04-03 07:44 | PN ---
PROGRESS NOTE Mr. Harper is an 83-year-old male with known history of atrial fibrillation, history of end-stage renal disease on hemodialysis, who presented to the emergency room with symptoms of hypotension during dialysis. He was admitted to the hospital, started on IV norepinephrine and underwent dialysis yesterday with removal of 3 L. He continues to be dyspneic. He has no chest discomfort. He feels tired. He has no dizziness or palpitation. He continues to be in atrial fibrillation with controlled ventricular response. It does not appear that he is scheduled to undergo repeat dialysis today. He continues to be on the norepinephrine. He is on Sinemet, Keppra, midodrine 10 mg 3 times a day, pravastatin 20 mg daily. The patient has not been anticoagulated because of recurrent fall. I have discussed those findings with the yesterday. Dr. Serrano has stopped his anticoagulation recently. PHYSICAL EXAMINATION: Blood pressure 91/58 with the heart rate in the 90s. LUNGS: With decreased air exchange, no wheezes. HEART: Irregular, irregular. S1, S2. No S3 with systolic murmur. ABDOMEN: Soft, nontender. EXTREMITIES: +2 edema. LAB DATA: Labs data revealed a hemoglobin of 11.4, BUN and creatinine 41 and 4.06, potassium 4.9. IMPRESSION: 1. Severe hypotension improved on the norepinephrine. 2. Questionable infiltrate and possible mass. 3. End-stage renal disease, on hemodialysis. 4. Chronic persistent atrial fibrillation. 5. Recurrent falls, off anticoagulation. 6. History of chronic obstructive lung disease. 7. History of mild cardiomyopathy. RECOMMENDATION: From the cardiac standpoint, we will continue supportive care and he will need to be re- evaluated down the road regarding the issue of anticoagulation. The patient presents a high risk for bleeding and falling. MMODL / IJN: [id number] /
[2019-04-03] MEDS: TIMOLOL 0.5% OPHTH DROPS 5 ML BTL BOTH EYES SCH (07:56)
[2019-04-03] MEDS: HEPARIN SODIUM,PORCINE 5,000 UNIT/ML 1 ML VIAL SQ SCH ×2 (07:58→21:15)
[2019-04-03] MEDS: PANTOPRAZOLE 40 MG/10 ML VIAL IV SCH (07:58)
[2019-04-03] MEDS: PIPERACILLIN-TAZOBACTAM 3.375 GM in SODIUM CHLORIDE 0.9% 100 ML IVPB SCH ×2 (07:59→21:15)
[2019-04-03] MEDS: BRIMONIDINE TARTRATE 0.2% DROPS 5 ML BTL BOTH EYES SCH ×2 (09:02→21:16)
--- NOTE | 2019-04-03 09:47 | CDI ---
Documentation Clarification Form Date: 04/03/2019 8:36:17 AM From: Lorene Azevedo RN CCDS Admit Date: 04/02/2019 9:31:00 AM Patient Name: Andrew Harper Visit Number: [id number] Discharge Date: ATTENTION: The Clinical Documentation Specialists (CDI) and [facility] Coding Staff appreciate your assistance in clarifying documentation. Please respond to the clarification below the line at the bottom and electronically sign. The CDI & [facility] Coding staff will review the response and follow-up if needed. Please note: Queries are made part of the Legal Health Record. If you have any questions, please contact the author of this message via ITS. Dr. Paco Gloria Patient is lethargic and also required Bipap Documented in the H & P History/Risk Factors: 83-year-old male presents to the ED via EMS from Dialysis for low blood pressure. Medical history Systolic CHF; COPD; ESRD on Dialysis Tobacco use: positive for previous heavy tobacco use. Critical Management Consult 04/02 Clinical Indicators: Vital signs:04/02 0747 Admission 72/47 80 97.5 20 91%4L nasal cannula Pulse ox 04/02 1132 80% 6L nasal cannula Pulse ox 04/02 1140 90% Non-Rebreather Pulse ox 04/02 1210 97% Bipap FiO2 100% Lung/Breathing assessment: H & P Trachea is central. Symmetrical expansion. Bibasilar diminished air entry. Scattered rhonchi Treatment: Breathing tx Duoneb q 4hrs PRN and scheduled. Bipap In your professional opinion, can you please clarify if these findings signify one of the following conditions? * Acute Respiratory Failure * Acute Respiratory Insufficiency * Other Diagnosis, please specify * Unable to determine Specificity: If known, further specify (if known): With hypercapnia? (pCO2 >50 and pH <7.35) With hypoxia? (pO2 <60 mm Hg or SpO2 <91% on room air) (Last Query Form Revision: January 2019) Acute Respiratory Failure MTDD
--- NOTE | 2019-04-03 10:24 | P.PN ---
Subjective Progress Note Date: 04/03/19 83-year-old male patient with end stage renal disease Hemodialysis who came in to the hospital because of hypotension as he was found to have low blood pressure of 70/40 at the dialysis center. In the ED, the patient was evaluated. He was having some cough and shortness of breath and he was producing yellowish to brownish sputum. He had a central line placed. He was given IV fluids. He was placed on norepinephrine infusion. He was placed on a BiPAP and following that he was moved to the intensive care unit. On today's evaluation, the patient is receiving IV Zosyn as empiric antibiotic coverage. He is still on levo fed at 8 mcg/m. He is off the BiPAP this morning is currently on oxygen at 6 L per minute nasal cannula. His last session of hemodialysis was yesterday. His white cell count is not elevated. His cultures are negative. He has a left subclavian triple-lumen catheter. He has a right AV fistula for dialysis. He is having some difficulties cough in his swallowing material. His chest x-ray showing patchy bilateral pulmonary infiltrates, left upper lobe, left lower lobe , right lower lobe. He is currently on IV Zosyn.He does have a week cough. His voice is hoarse. He is currently having some congested cough, unable to bring up any sputum. He is I will cardiac exam showed an ejection fraction of 45%. He received a total of 1 L of daily bolus in the emergency department Objective - Vital Signs Vital signs: Vital Signs Temp 98.0 F 04/03/19 08:00 Pulse 88 04/03/19 09:15 Resp 15 04/03/19 09:15 BP 95/66 04/03/19 09:15 Pulse Ox 94 L 04/03/19 09:15 Intake & Output 04/02/19 04/03/19 04/03/19 18:59 06:59 18:59 Intake Total 1160 406.403 160 Output Total 3000 0 Balance -1840 406.403 160 Weight 95.3 kg 95.7 kg Intake: IV 160 340 160 D5 0.45 NACL 160 240 60 Piperacillin-Tazobactam 3 100 100 .375 gm In Sodium Chloride 0.9% 100 ml @ 25 mls/hr IVPB Q12HR [facility] Rx #:[id number] Amount of Fluid Infused ( 1000 ml) Intake, IV Titration 66.403 Amount Norepinephrine 32 mg In 66.403 Sodium Chloride 0.9% 218 ml @ 0.05 MCG/KG/MIN 2. 234 mls/hr IV .Q24H [facility] Rx#:[id number] Output: Urine 0 0 Hemodialysis 3000 - Exam Gen. appearance, comfortable no acute distress. Her voice is hoarse and he has been quite muffled. Head exam was generally normal. There was no scleral icterus or corneal arcus. Mucous membranes were moist. Neck was supple and without jugular venous distension, thyromegaly, or carotid bruits. Carotids were easily palpable bilaterally. There was no adenopathy. Lungs sounds are diminished and there are crackles in the mid and lower lung brewster bilaterally more so on the right and in the left base. Cardiac exam revealed the PMI to be normally situated and sized. The rhythm was regular and no extrasystoles were noted during several minutes of auscultation. The first and second heart sounds were normal and physiologic splitting of the second heart sound was noted. There were no murmurs, rubs, clicks, or gallops. Abdominal exam revealed normal bowel sounds. The abdomen was soft, non-tender, and without masses, organomegaly, or appreciable enlargement of the abdominal aorta. Extremities there is +1 pitting edema in all 4 extremities mainly in the thighs and lower extremities bilaterally. The patient has an AV fistula in the right upper extremity. Neurologically is awake and alert and there is no focal neurological deficits. - Labs CBC & Chem 7: 04/03/19 04:50 04/03/19 04:47 Labs: Abnormal Lab Results - Last 24 Hours (Table) 04/02/19 04/03/19 04/03/19 Range/Units 11:34 04:47 04:50 RBC 3.31 L (4.30-5.90) m/uL Hgb 11.4 L (13.0-17.5) gm/dL Hct 36.1 L (39.0-53.0) % MCV 109.0 H (80.0-100.0) fL Plt Count 126 L (150-450) k/uL Lymphocytes # 0.4 L (1.0-4.8) k/uL Macrocytosis Marked A BUN 41 H (9-20) mg/dL Creatinine 4.06 H (0.66-1.25) mg/dL Glucose 105 H (74-99) mg/dL POC Glucose (mg/dL) 118 H (75-99) mg/dL Microbiology - Last 24 Hours (Table) 04/02/19 08:01 Blood Culture - Preliminary Blood No Growth after 24 hours 04/02/19 17:21 Gram Stain - Preliminary Sputum Sputum Culture - Preliminary Assessment and Plan Plan: 1 multilobar pneumonia, consider aspiration especially with his underlying difficulties in swallowing and swallow evaluation is in progress. The patient is currently on IV Zosyn 2 acute hypoxic respiratory failure. currently off BiPAP and the patient is on oxygen at 6 L 3 acute sepsis with secondary hypotension receded bolus of 1 L and currently on pressors with norepinephrine 4 dysphagia, under investigation 5 hoarseness under investigation 6 End stage dialysis-dependent renal failure on dialysis 3 times a week last session of dialysis was yesterday 7 CHF with ejection fraction of 45% 8 COPD 9 history of atrial fibrillation 10 hypertension 11 hyperlipidemia 12 Plan Proceed with a CAT scan of the neck and chest. May need a direct evaluation of the vocal cords which probably is affecting his swallow process. Obtain a swallow evaluation. May need a modified barium swallow. Keep nothing by mouth for now. Continue IV Zosyn. Nephrology on the case regarding his renal failur e. Wean off pressors as tolerated. Continue IV Zosyn. We'll continue to follow. Note that his modified barium swallow this was done back in 02/13/2019 showed several episodes of the penetration without aspiration.
[2019-04-03] MEDS: HYDROCORTISONE 10 MG TAB PO SCH (10:31)
[2019-04-03] MEDS: DOCUSATE 100 MG CAP PO SCH (10:31)
[2019-04-03] MEDS: rOPINIRole HCL 4 MG TABLET PO SCH ×3 (10:31→21:15)
[2019-04-03] MEDS: CARBIDOPA-LEVODOPA 25-100 MG 1 EACH TAB PO SCH ×2 (10:31→21:14)
[2019-04-03] MEDS: GABAPENTIN 100 MG CAP PO SCH ×3 (10:31→21:15)
--- NOTE | 2019-04-03 11:37 | P.PN ---
Subjective Patient is a 83-year-old male with a known history of chronic atrial fibrillation on anticoagulation with Eliquis, COPD, hypertension, hyperlipidemia and ESRD on hemodialysis Wednesday and Wednesday. Due to change in scheduled during holiday time patient was scheduled for hemodialysis today. Patient was found to be hypotensive while he was at hemodialysis center with SBP and 70s. Patient was seen by Dr. Whitfield and recommended him to go to ER. Patient otherwise denied any cough or sputum production. No fever no chills. Patient was given 5 mL fluid bolus in the ER. Patient is also taking midodrine at home which was given. Patient is lethargic and also required BiPAP. Denied any chest pain. No nausea vomiting or abdominal pain or diarrhea. Patient does have worsening bilateral leg swelling. Chest x-ray showed developing interstitial lung disease. Increase in small to moderate pleural effusion. Correlate for CHF and interstitial pulmonary edema. BNP 89, 700 Hemoglobin 10.1 Elevated BUN and creatinine level. 04/03/2019 Patient seen and examined today in the ICU. He is fully awake and oriented, his mildly tachypneic but no chest pain or significant coughing. He has some hoarseness of the voice, CT of the neck and thorax was ordered, swallow evaluation is done and the recommended neck to take diet, vision feels hungry and is asking for food. He is history of A. fib and was not on anticoagulation due to coagulopathy with slightly elevated troponin, development team lead evaluated the patient and they will decide about anticoagulation with Eliquis versus Coumadin. Vision undergoing hemodialysis and fluid is been taken off however his blood pressure still on the low side and he is needing levophed at 0.09 currently. Also a Cortef 10 mg daily and midodrine 10 mg 3 times daily, blood pressure 92/65, and heart rate is 85. Review of systems: Constitutional: Patient denies any fever or chills . No generalized weakness or weight loss. Abdomen: Patient denied nausea vomiting and diarrhea and abdominal pain. Cardiovascular: Patient denies any chest pain or short of breath no palpitations. Respiratory: patient denied any cough is from production. No shortness of breath Neurologic: Patient denied any numbness or tingling headache. Patient does have hearing difficulty and also lethargic. Complete review of systems could not be obtained from the patient. Objective - Vital Signs Vital signs: Vital Signs Temp 98.0 F 04/03/19 08:00 Pulse 85 04/03/19 11:01 Resp 14 04/03/19 10:45 BP 92/65 04/03/19 10:45 Pulse Ox 91 L 04/03/19 10:45 Intake & Output 04/02/19 04/03/19 04/03/19 18:59 06:59 18:59 Intake Total 1160 406.403 180 Output Total 3000 0 Balance -1840 406.403 180 Weight 95.3 kg 95.7 kg Intake: IV 160 340 180 D5 0.45 NACL 160 240 80 Piperacillin-Tazobactam 3 100 100 .375 gm In Sodium Chloride 0.9% 100 ml @ 25 mls/hr IVPB Q12HR [facility] Rx #:[id number] Amount of Fluid Infused ( 1000 ml) Intake, IV Titration 66.403 Amount Norepinephrine 32 mg In 66.403 Sodium Chloride 0.9% 218 ml @ 0.05 MCG/KG/MIN 2. 234 mls/hr IV .Q24H [facility] Rx#:[id number] Output: Urine 0 0 Hemodialysis 3000 - Exam PHYSICAL EXAMINATION: Patient is lying in the bed comfortably, no acute distress, awake alert and oriented. Lethargic.. HEENT: Normocephalic. Neck is supple. Pupils reactive. Nostrils clear. Oral cavity is moist. Ears reveal no drainage. Neck reveals no JVD, carotid bruits, or thyromegaly. CHEST EXAMINATION: Trachea is central. Symmetrical expansion. Bibasilar diminished air entry. Scattered rhonchi. CARDIAC: Normal S1, S2 with no gallops. No murmurs . Irregularly irregular rhythm ABDOMEN: Soft. Bowel sounds normal. No organomegaly. No abdominal bruits. Extremities: 2+ bilateral pitting edema. No clubbing or cyanosis Neurologically awake, alert, oriented but lethargic. No focal deficits noted Skin: No rash or skin lesions. Psychiatric: Coperative. Musculoskeletal: No joint swelling or deformity. Normal range of motion. - Labs CBC & Chem 7: 04/03/19 04:50 04/03/19 04:47 Labs: Abnormal Lab Results - Last 24 Hours (Table) 04/02/19 04/03/19 04/03/19 Range/Units 11:34 04:47 04:50 RBC 3.31 L (4.30-5.90) m/uL Hgb 11.4 L (13.0-17.5) gm/dL Hct 36.1 L (39.0-53.0) % MCV 109.0 H (80.0-100.0) fL Plt Count 126 L (150-450) k/uL Lymphocytes # 0.4 L (1.0-4.8) k/uL Macrocytosis Marked A BUN 41 H (9-20) mg/dL Creatinine 4.06 H (0.66-1.25) mg/dL Glucose 105 H (74-99) mg/dL POC Glucose (mg/dL) 118 H (75-99) mg/dL Microbiology - Last 24 Hours (Table) 04/02/19 08:01 Blood Culture - Preliminary Blood No Growth after 24 hours 04/02/19 17:21 Gram Stain - Preliminary Sputum Sputum Culture - Preliminary Assessment and Plan Assessment: hypotension requiring pressor support. Could be related to septic shock versus hypo-volume sharp Chronic hypotension on Midodrin at home Acute on chronic CHF with systolic dysfunction ejection fraction 45-50% hoarseness of voice Swallowing difficulty ESRD on hemodialysis Wednesday Chronic atrial fibrillation on anticoagulation with Eliquis. Rate controlled now. Hypertension Hyperlipidemia COPD not in exacerbation Parkinson's disease Previous history of smoking Plan: Continue with the pressors, continue with hemodialysis. Patient is on Zosyn. Also continue with hydrocortisone and medial drain. Follow-up computed tomography scan of the neck and thorax. Continue with nectar thick diet for his swallowing problem, follow-up recommendation by cardiology, nephrology and pulmonary/critical care team. Labs and medication were reviewed.. Continue same treatment. Continue with symptomatic treatment. Resume home medication. Monitor lytes and vitals. DVT and GI prophylaxis. Further recommendations of the clinical course of the patient DVT prophylaxis: Subcutaneous heparin GI Prophylaxis: Pepcid Prognosis is guarded
--- NOTE | 2019-04-03 11:59 | P.PN ---
Subjective Patient is seen in follow-up for end-stage renal disease. He is maintained on hemodialysis on Wednesday schedule. Currently on low-dose Levophed. Tolerated hemodialysis well yesterday with 3 L O2 filtration. Oral intake is poor. Complaining of productive cough with mostly clear sputum. Vital signs are stable. Currently on vasopressors. General: The patient appeared well nourished and normally developed. HEENT: Head exam is unremarkable. Neck is without jugular venous distension. LUNGS: Lungs are clear to auscultation and percussion. Breath sounds decreased. HEART: Rate and Rhythm are regular. First and second heart sounds normal. No murmurs, rubs or gallops. ABDOMEN: Abdominal exam reveals normal bowel sounds. Distention noted. EXTREMITITES: 1+ edema. Objective - Vital Signs Vital signs: Vital Signs Temp 98.0 F 04/03/19 08:00 Pulse 85 04/03/19 11:01 Resp 14 04/03/19 10:45 BP 92/65 04/03/19 10:45 Pulse Ox 91 L 04/03/19 10:45 Intake & Output 04/02/19 04/03/19 04/03/19 18:59 06:59 18:59 Intake Total 1160 406.403 180 Output Total 3000 0 Balance -1840 406.403 180 Weight 95.3 kg 95.7 kg Intake: IV 160 340 180 D5 0.45 NACL 160 240 80 Piperacillin-Tazobactam 3 100 100 .375 gm In Sodium Chloride 0.9% 100 ml @ 25 mls/hr IVPB Q12HR [facility] Rx #:[id number] Amount of Fluid Infused ( 1000 ml) Intake, IV Titration 66.403 Amount Norepinephrine 32 mg In 66.403 Sodium Chloride 0.9% 218 ml @ 0.05 MCG/KG/MIN 2. 234 mls/hr IV .Q24H [facility] Rx#:[id number] Output: Urine 0 0 Hemodialysis 3000 - Labs CBC & Chem 7: 04/03/19 04:50 04/03/19 04:47 Labs: Abnormal Lab Results - Last 24 Hours (Table) 04/03/19 04/03/19 Range/Units 04:47 04:50 RBC 3.31 L (4.30-5.90) m/uL Hgb 11.4 L (13.0-17.5) gm/dL Hct 36.1 L (39.0-53.0) % MCV 109.0 H (80.0-100.0) fL Plt Count 126 L (150-450) k/uL Lymphocytes # 0.4 L (1.0-4.8) k/uL Macrocytosis Marked A BUN 41 H (9-20) mg/dL Creatinine 4.06 H (0.66-1.25) mg/dL Glucose 105 H (74-99) mg/dL Microbiology - Last 24 Hours (Table) 04/02/19 08:01 Blood Culture - Preliminary Blood No Growth after 24 hours 04/02/19 17:21 Gram Stain - Preliminary Sputum Sputum Culture - Preliminary Assessment and Plan Plan: Assessment: 1. End-stage renal disease maintained on hemodialysis on Wednesday schedule. 2. Chronic hypotension maintained on midodrine. Patient did receive 1 L normal saline bolus in the ER. Cortisol level normal. 3. Acute on chronic systolic CHF with ejection fraction of 45-50%. 4. Volume overload. 5. Pneumonia maintained on antibiotics. Plan: Maintain midodrine 10 mg 3 times daily. Hemodialysis again today mostly for ultrafiltration. Wean Levophed. Follow-up cultures.
[2019-04-03] MEDS: DEXTROSE 5%-0.45% NACL 1,000 ML IV SCH (12:14)
--- NOTE | 2019-04-03 13:39 | CT ---
EXAMINATION TYPE: CT neck chest without con DATE OF EXAM: 04/03/2019 COMPARISON: HISTORY: Voice hoarseness, Infiltrates CT DLP: 804.[address] of the chest was performed with lung and mediastinal window settings submitted. The la ck of contrast limits evaluation of the vascular, mediastinal and parenchymal structures including th e upper abdomen. LUNGS: Focal infiltrates identified throughout both lung brewster greatest within the mid and lower edson g zones. Bilateral pleural effusions left greater than right. Left-sided effusion measures approximat norma 5.3 cm AP dimension while the right-sided effusion measures approximately 1.8 cm. MEDIASTINUM/KEVIN: Thoracic aorta is of normal caliber with limited evaluation given lack of contrast . The heart is enlarged. No evidence for mediastinal mass. There is left hilar fullness noted which may reflect underlying adenopathy. Lack of contrast limits evaluation. UPPER ABDOMEN: Upper abdominal ascites noted. Renal atrophic changes identified. Large right-sided r enal cysts. OTHER: No significant other abnormality. IMPRESSION: 1. Multifocal infiltrates and pleural effusion may reflect underlying pneumonia. Correlate clinicall y. Infiltrates of other etiology not excluded. 2. Upper abdominal ascites noted. 3. Cardiomegaly. EXAMINATION TYPE: CT neck chest without con DATE OF EXAM: 04/03/2019 COMPARISON: None HISTORY: Voice hoarseness, Infiltrates CT DLP: 804.[address] of the neck was performed from the skull base through the lung apices. Lack of contrast limits evaluation. AIRWAY: The supraglottic, glottic, and subglottic portions of the airway appear patent and free of mass. SALIVARY GLANDS: The submandibular and parotid glands are free of mass or inflammatory process. THYROID GLAND: No nodules or masses seen. LYMPH NODES: No adenopathy seen greater than 1cm. LUNG APICES: No nodule or mass is seen. OTHER: Vascular structures are patent. No significant degenerative change of the cervical spine. N o abscess seen. IMPRESSION: 1. No distinct mass identified on this limited unenhanced study.
[2019-04-03] MEDS: NOREPINEPHRINE 32 MG in SODIUM CHLORIDE 0.9% 218 ML IV SCH (17:11)
[2019-04-03] MEDS: ALLOPURINOL 100 MG TAB PO SCH (21:14)
[2019-04-03] MEDS: levETIRAcetam 250 MG TAB PO SCH (21:15)
[2019-04-03] MEDS: PRAVASTATIN SODIUM 20 MG TAB PO SCH (21:15)
[2019-04-04 05:58] LABS: Calcium 9.1 mg/dL (8.4-10.2); Potassium 4.6 mmol/L (3.5-5.1)
[2019-04-04 06:15] LABS: Basophils # (A) 0.1 k/uL (0-0.2); Basophils % (A) 2 %; Eosinophils # (A) 0.3 k/uL (0-0.7); Eosinophils % (A) 4 %; HCT 34.4 % (39.0-53.0); HGB 10.8 gm/dL (13.0-17.5); Hypochromasia Slight; Lymphocytes # (A) 0.5 k/uL (1.0-4.8); Lymphocytes % (A) 7 %; MCH 34.8 pg (25.0-35.0); MCHC 31.4 g/dL (31.0-37.0); MCV 110.7 fL (80.0-100.0); Macrocytosis Marked; Mean Platelet Volume 6.7; Monocytes # (A) 0.4 k/uL (0-1.0); Monocytes % (A) 6 %; Neutrophils # (A) 5.3 k/uL (1.3-7.7); Neutrophils % (A) 78 %; Platelet Count 132 k/uL (150-450); RBC 3.11 m/uL (4.30-5.90); RDW 14.5 % (11.5-15.5); WBC 6.9 k/uL (3.8-10.6)
[2019-04-04] MEDS: MIDODRINE 5 MG TAB PO SCH ×3 (06:59→17:17)
[2019-04-04 07:00] LABS: Magnesium 2.2 mg/dL (1.6-2.3)
[2019-04-04] MEDS: levOCARNitine (WITH SUGAR) 100 MG/ML BOTTLE PO SCH ×3 (07:14→17:17)
[2019-04-04] MEDS: BUDESONIDE 1 MG/2 ML NEBU INHALATION SCH ×2 (08:09→19:28)
[2019-04-04] MEDS: IPRATROPIUM-ALBUTEROL 3 ML NEB INHALATION SCH ×4 (08:09→19:28)
[2019-04-04] MEDS: FORMOTEROL FUMARATE 20 MCG/2 ML NEBU INHALATION SCH ×2 (08:09→19:27)
--- NOTE | 2019-04-04 08:22 | PN ---
PROGRESS NOTE Mr. Harper is an 83-year-old male with a known history of chronic persistent atrial fibrillation disease, renal disease, on hemodialysis, episode of hypotension, who presented with severe hypotension. He was started on norepinephrine and has underwent dialysis, he is feeling better today. He received a short course of dialysis yesterday and he is scheduled to undergo repeat dialysis today. He denies any symptoms of chest pain. He denies any dizziness. He continues to be on low-dose norepinephrine. He has lost weight since yesterday. Otherwise, he is in atrial fibrillation, but no evidence of tachycardia or bradycardia. He has not been anticoagulated because of recurrent falls. He continues to be at this time on the norepinephrine, midodrine 10 mg 3 times a day, Keppra, pravastatin. PHYSICAL EXAMINATION: Blood pressure 110/60 with a heart rate in the 90s. LUNGS: No wheezes. HEART: Irregular, regular, S1, S2. No S3. No rub. ABDOMEN: Soft, nontender. EXTREMITIES: With decreased edema compared to admission. LAB DATA: Revealed BUN and creatinine 42 and 4.08, potassium 4.6, hemoglobin 10.8. His weight is down 4 kg according to the report. IMPRESSION: 1. End-stage renal disease, on hemodialysis. 2. Atrial fibrillation with controlled ventricular response, anticoagulated because of recurrent falls. 3. Hypotension, chronic, stabilizing at this time. Patient remains on low-dose norepinephrine. 4. Pneumonia by x-ray. 5. Mild cardiomyopathy. 6. History of hyperlipidemia. RECOMMENDATIONS: We will continue present therapy. Try to wean the norepinephrine as tolerated. Continue rest of his medical regimen and depending on his progress, further recommendation will be made. MMODL / IJN: [id number] /
--- NOTE | 2019-04-04 08:37 | P.PN ---
Subjective Progress Note Date: 04/04/19 On 04/04/2019 I'm seeing the patient for a follow-up. He seems to more alert and awake compared to yesterday. He is currently on 4 L of oxygen by nasal cannula. He has a congested cough. I was concerned of ongoing aspiration. I was also concerned of a malignancy based on his condition and ongoing co arseness. The voice quality is improved. CAT scan of the neck and the chest was done yesterday in addition to a swallow evaluation. The swallow evaluation was done and the patient was found to have mild to moderate pharyngeal dysphagia and it was recommended that he proceed with chopped diet with nectar thick liquids. The CAT scan of the neck and the chest also completed. The CAT scan of the neck showed no significant abnormalities. CAT scan of the chest showed multilobar pneumonia involving the mid and lower lobes bilaterally. There was no distinct masses. The patient also had small bilateral pleural effusions in the lung bases bilaterally. There was changes consistent with emphysema. There was focal infiltrates more so in the lung bases and the pleural effusion slightly worse on the left compared to the right. He is currently undergoing a session of hemodialysis. He is receiving low-dose levothyroid at 0.06 units per KG per minute. He remains on IV Zosyn. His echo showed an ejection fraction of 45%. He is off the BiPAP for now. Sputum Gram stain and culture was negative Objective - Vital Signs Vital signs: Vital Signs Temp 97.6 F 04/04/19 04:00 Pulse 90 04/04/19 08:30 Resp 20 04/04/19 07:00 BP 110/68 04/04/19 07:00 Pulse Ox 95 04/04/19 07:00 Intake & Output 04/03/19 04/04/19 04/04/19 18:59 06:59 18:59 Intake Total 388.736 511.757 20 Output Total 0 1176 0 Balance 388.736 -664.243 20 Weight 91.3 kg Intake: IV 360 220 20 D5 0.45 NACL 260 220 20 Piperacillin-Tazobactam 3 100 .375 gm In Sodium Chloride 0.9% 100 ml @ 25 mls/hr IVPB Q12HR [facility] Rx #:[id number] Intake, IV Titration .736 171.757 Amount Norepinephrine 32 mg In 736 71.757 Sodium Chloride 0.9% 218 ml @ 0.05 MCG/KG/MIN 2. 234 mls/hr IV .Q24H [facility] Rx#:[id number] Piperacillin-Tazobactam 3 100 .375 gm In Sodium Chloride 0.9% 100 ml @ 25 mls/hr IVPB Q12HR [facility] Rx #:[id number] Oral 120 Output: Urine 0 26 0 Hemodialysis 1150 Other: Voiding Method Urinal - Exam Gen. appearance, comfortable no acute distress. Her voice is hoarse and he has been quite muffled. The voice quality has improved Head exam was generally normal. There was no scleral icterus or corneal arcus. Mucous membranes were moist. Neck was supple and without jugular venous distension, thyromegaly, or carotid b ruits. Carotids were easily palpable bilaterally. There was no adenopathy. Lungs sounds are diminished and there are crackles in the mid and lower lung brewster bilaterally more so on the right and in the left base. Cardiac exam revealed the PMI to be normally situated and sized. The rhythm was regular and no extrasystoles were noted during several minutes of auscultation. The first and second heart sounds were normal and physiologic splitting of the second heart sound was noted. There were no murmurs, rubs, clicks, or gallops. Abdominal exam revealed normal bowel sounds. The abdomen was soft, non-tender, and without masses, organomegaly, or appreciable enlargement of the abdominal aorta. Extremities there is +1 pitting edema in all 4 extremities mainly in the thighs and lower extremities bilaterally. The patient has an AV fistula in the right upper extremity. Neurologically is awake and alert and there is no focal neurological deficits. - Labs CBC & Chem 7: 04/04/19 05:00 04/04/19 05:00 Labs: Abnormal Lab Results - Last 24 Hours (Table) 04/04/19 04/04/19 Range/Units 05:00 05:00 RBC 3.11 L (4.30-5.90) m/uL Hgb 10.8 L (13.0-17.5) gm/dL Hct 34.4 L (39.0-53.0) % MCV 110.7 H (80.0-100.0) fL Plt Count 132 L (150-450) k/uL Lymphocytes # 0.5 L (1.0-4.8) k/uL Macrocytosis Marked A BUN 42 H (9-20) mg/dL Creatinine 4.08 H (0.66-1.25) mg/dL Glucose 125 H (74-99) mg/dL Microbiology - Last 24 Hours (Table) 04/02/19 17:21 Gram Stain - Preliminary Sputum Sputum Culture - Preliminary 04/02/19 08:01 Blood Culture - Preliminary Blood No Growth after 24 hours Assessment and Plan Plan: 1 multilobar pneumonia, consider aspiration especially with his underlying difficulties in swallowing and swallow evaluation is in progress. The patient is currently on IV Zosyn the CAT scan of the chest showed evidence of multilobar pneumonia most on the lung bases. Consider aspiration. Aspiration is still a possibility despite the fact that the patient had stopped the bedside swallow evaluation. He was cooperative improved. The Neck Did Not Show Any Masses or Tumors. Was Cooperative Is Also Improved. 2 acute hypoxic respiratory failure. currently off BiPAP and is on 4 L of oxygen by nasal cannula 3 acute sepsis with secondary hypotension receiving a low-dose norepinephrine infusion at 0.06 units per KG per minute 4 dysphagia, under investigation passed swallow evaluation 5 hoarseness under investigation, CAT scan of the neck was negative. 6 End stage dialysis-dependent renal failure on dialysis 3 times a week last session of dialysis was yesterday 7 CHF with ejection fraction of 45% 8 COPD 9 history of atrial fibrillation 10 hypertension 11 hyperlipidemia 12 Plan Likely improved. Continue IV Zosyn. The neck was negative. CAT scan of the chest was consistent with multilobar pneumonia and small bilateral pleural effusion. He is currently undergoing hemodialysis through his AV fistula in the right upper extremity. The goal is INFILTRATES in for a total of 3 L. We will monitor the blood pressure. We'll continue the pressors and wean it off. He is currently on 4 L. Chest x-ray postdialysis. Keep him in ICU for another 24 hours. We'll continue to follow.
[2019-04-04] MEDS: PANTOPRAZOLE 40 MG/10 ML VIAL IV SCH (09:29)
[2019-04-04] MEDS: CARBIDOPA-LEVODOPA 25-100 MG 1 EACH TAB PO SCH ×2 (09:29→20:53)
[2019-04-04] MEDS: GABAPENTIN 100 MG CAP PO SCH ×3 (09:29→20:53)
[2019-04-04] MEDS: PIPERACILLIN-TAZOBACTAM 3.375 GM in SODIUM CHLORIDE 0.9% 100 ML IVPB SCH ×2 (09:29→20:54)
[2019-04-04] MEDS: DOCUSATE 100 MG CAP PO SCH (09:29)
[2019-04-04] MEDS: HEPARIN SODIUM,PORCINE 5,000 UNIT/ML 1 ML VIAL SQ SCH ×2 (09:29→20:54)
[2019-04-04] MEDS: BRIMONIDINE TARTRATE 0.2% DROPS 5 ML BTL BOTH EYES SCH ×2 (09:29→20:54)
[2019-04-04] MEDS: HYDROCORTISONE 10 MG TAB PO SCH (09:34)
[2019-04-04] MEDS: rOPINIRole HCL 4 MG TABLET PO SCH ×3 (09:34→20:53)
[2019-04-04] MEDS: TIMOLOL 0.5% OPHTH DROPS 5 ML BTL BOTH EYES SCH (09:47)
[2019-04-04] MEDS: DEXTROSE 5%-0.45% NACL 1,000 ML IV SCH (09:50)
--- NOTE | 2019-04-04 09:54 | P.PN ---
Subjective Patient is seen in follow-up for end-stage renal disease. He is maintained on hemodialysis on Wednesday schedule. Currently on low-dose Levophed. Tolerated hemodialysis well yesterday with 1.1 L ultrafiltration. Oral intake is fair. Cough is improved. Vital signs are stable. Currently on vasopressors. General: The patient appeared well nourished and normally developed. HEENT: Head exam is unremarkable. Neck is without jugular venous distension. LUNGS: Lungs are clear to auscultation and percussion. Breath sounds decreased. HEART: Rate and Rhythm are regular. First and second heart sounds normal. No murmurs, rubs or gallops. ABDOMEN: Abdominal exam reveals normal bowel sounds. Distention noted. EXTREMITITES: 1+ edema. Objective - Vital Signs Vital signs: Vital Signs Temp 97.6 F 04/04/19 04:00 Pulse 90 04/04/19 08:30 Resp 20 04/04/19 07:00 BP 110/68 04/04/19 07:00 Pulse Ox 95 04/04/19 07:00 Intake & Output 04/03/19 04/04/19 04/04/19 18:59 06:59 18:59 Intake Total 388.736 511.757 20 Output Total 0 1176 0 Balance 388.736 -664.243 20 Weight 91.3 kg Intake: IV 360 220 20 D5 0.45 NACL 260 220 20 Piperacillin-Tazobactam 3 100 .375 gm In Sodium Chloride 0.9% 100 ml @ 25 mls/hr IVPB Q12HR [facility] Rx #:[id number] Intake, IV Titration 28.736 171.757 Amount Norepinephrine 32 mg In 28.736 71.757 Sodium Chloride 0.9% 218 ml @ 0.05 MCG/KG/MIN 2. 234 mls/hr IV .Q24H [facility] Rx#:[id number] Piperacillin-Tazobactam 3 100 .375 gm In Sodium Chloride 0.9% 100 ml @ 25 mls/hr IVPB Q12HR [facility] Rx #:[id number] Oral 120 Output: Urine 0 26 0 Hemodialysis 1150 Other: Voiding Method Urinal - Labs CBC & Chem 7: 04/04/19 05:00 04/04/19 05:00 Labs: Abnormal Lab Results - Last 24 Hours (Table) 04/04/19 04/04/19 Range/Units 05:00 05:00 RBC 3.11 L (4.30-5.90) m/uL Hgb 10.8 L (13.0-17.5) gm/dL Hct 34.4 L (39.0-53.0) % MCV 110.7 H (80.0-100.0) fL Plt Count 132 L (150-450) k/uL Lymphocytes # 0.5 L (1.0-4.8) k/uL Macrocytosis Marked A BUN 42 H (9-20) mg/dL Creatinine 4.08 H (0.66-1.25) mg/dL Glucose 125 H (74-99) mg/dL Microbiology - Last 24 Hours (Table) 04/02/19 17:21 Gram Stain - Preliminary Sputum Sputum Culture - Preliminary Gram Neg Bacilli 04/02/19 08:01 Blood Culture - Preliminary Blood No Growth after 24 hours Assessment and Plan Plan: Assessment: 1. End-stage renal disease maintained on hemodialysis on Wednesday schedule. 2. Chronic hypotension maintained on midodrine. Patient did receive 1 L normal saline bolus in the ER. Cortisol level normal. 3. Acute on chronic systolic CHF with ejection fraction of 45-50%. 4. Volume overload. 5. Pneumonia maintained on antibiotics. Sputum culture positive for gram- negative bacilli. Plan: Maintain midodrine 10 mg 3 times daily. Currently seen while undergoing hemodialysis. Another treatment tomorrow. Wean Levophed. Follow-up cultures.
--- NOTE | 2019-04-04 11:56 | P.PN ---
Subjective Patient is a 83-year-old male with a known history of chronic atrial fibrillation on anticoagulation with Eliquis, COPD, hypertension, hyperlipidemia and ESRD on hemodialysis Wednesday and Wednesday. Due to change in scheduled during holiday time patient was scheduled for hemodialysis today. Patient was found to be hypotensive while he was at hemodialysis center with SBP and 70s. Patient was seen by Dr. Whitfield and recommended him to go to ER. Patient otherwise denied any cough or sputum production. No fever no chills. Patient was given 5 mL fluid bolus in the ER. Patient is also taking midodrine at home which was given. Patient is lethargic and also required BiPAP. Denied any chest pain. No nausea vomiting or abdominal pain or diarrhea. Patient does have worsening bilateral leg swelling. Chest x-ray showed developing interstitial lung disease. Increase in small to moderate pleural effusion. Correlate for CHF and interstitial pulmonary edema. BNP 89, 700 Hemoglobin 10.1 Elevated BUN and creatinine level. 04/03/2019 Patient seen and examined today in the ICU. He is fully awake and oriented, his mildly tachypneic but no chest pain or significant coughing. He has some hoarseness of the voice, CT of the neck and thorax was ordered, swallow evaluation is done and the recommended neck to take diet, vision feels hungry and is asking for food. He is history of A. fib and was not on anticoagulation due to coagulopathy with slightly elevated troponin, shot dropper evaluated the patient and they will decide about anticoagulation with Eliquis versus Coumadin. Vision undergoing hemodialysis and fluid is been taken off however his blood pressure still on the low side and he is needing levophed at 0.09 currently. Also a Cortef 10 mg daily and midodrine 10 mg 3 times daily, blood pressure 92/65, and heart rate is 85. 04/04/2019 Patient the ICU, he is looks clinically the same, he had hemodialysis today wit h 3 L of normal saline has been taken off, he still on pressors with norepinephrine with lowered the dose from 0.09 down to 0.06 however his blood pressure was on the low side 81/50, pulmonary/critical care team will keep titrating up and down his pressors. looks stable, his platelets is improving g radually to 132. His sputum culture is positive for gram-negative bacilli however finer results still pending. In the meantime patient remains on Zosyn for his pneumonia. Review of systems: Constitutional: Patient denies any fever or chills . No generalized weakness or weight loss. Abdomen: Patient denied nausea vomiting and diarrhea and abdominal pain. Cardiovascular: Patient denies any chest pain or short of breath no palpitations. Respiratory: patient denied any cough is from production. No shortness of breath Neurologic: Patient denied any numbness or tingling headache. Patient does have hearing difficulty and also lethargic. Complete review of systems could not be obtained from the patient. Active Medications Generic Name Dose Route Start Last Admin Trade Name Freq PRN Reason Stop Dose Admin Albuterol/Ipratropium 3 ml 04/02/19 09:31 Duoneb 0.5 Mg-3 Mg/3 Ml Soln INHALATION RT-Q4H PRN Shortness Of Breath Or Wheezing Albuterol/Ipratropium 3 ml 04/02/19 16:00 04/04/19 11:10 Duoneb 0.5 Mg-3 Mg/3 Ml Soln INHALATION 3 ml RT-QID [facility]A Administration Allopurinol 100 mg 04/02/19 21:00 04/03/19 21:14 Zyloprim PO 100 mg HS SHILA Administration Brimonidine Tartrate 1 drops 04/02/19 21:00 04/04/19 09:29 Alphagan P 0.2% Ophth Soln BOTH EYES 1 drops BID SHILA Administration Budesonide 1 mg 04/02/19 20:00 04/04/19 08:09 Pulmicort INHALATION 1 mg RT-BID SHILA Administration Carbidopa/Levodopa 1 each 04/02/19 21:00 04/04/19 09:29 Sinemet 25-100 PO 1 each BID SHILA Administration Docusate Sodium 100 mg 04/03/19 09:00 04/04/19 09:29 Colace PO 100 mg DAILY SHILA Administration Formoterol Fumarate 20 mcg 04/02/19 20:00 04/04/19 08:09 Perforomist INHALATION 20 mcg RT-BID SH[facility]A Administration Gabapentin 100 mg 04/02/19 16:00 04/04/19 09:29 Neurontin PO 100 mg TID SHILA Administration Heparin Sodium (Porcine) 5,000 unit 04/02/19 21:00 04/04/19 09:29 Heparin SQ 5,000 unit Q12HR [facility]A Administration Hydrocortisone 10 mg 04/03/19 09:00 04/04/19 09:34 Cortef PO 10 mg DAILY SHILA Administration Dextrose/Sodium Chloride 1,000 mls @ 20 mls/hr 04/02/19 09:45 04/04/19 09:50 Dextrose 5%-1/2ns Iv Soln IV 20 mls/hr .Q24H [facility]A Administration Norepinephrine Bitartrate 32 250 mls @ 2.234 mls/hr 04/02/19 11:30 04/04/19 06:51 mg/ Sodium Chloride IV 0.06 mcg/kg/min .Q24H SH[facility]A 2.68 mls/hr Titration Protocol 0.05 MCG/KG/MIN Piperacillin Sod/Tazobactam 100 mls @ 25 mls/hr 04/02/19 21:00 04/04/19 09:29 Sod 3.375 gm/ Sodium Chloride IVPB 25 mls/hr Q12HR [facility] Administration Levetiracetam 250 mg 04/02/19 21:00 04/03/19 21:15 Keppra PO 250 mg HS SH[facility]A Administration Levocarnitine 330 mg 04/02/19 12:30 04/04/19 07:14 Carnitor Oral Soln PO 330 mg TID-W/MEALS SH[facility]A Administration Midodrine 10 mg 04/02/19 12:30 04/04/19 06:59 Proamatine PO 10 mg AC-TID SH[facility]A Administration Naloxone HCl 0.2 mg 04/02/19 09:31 Narcan IV Q2M PRN Opioid Reversal Pantoprazole Sodium 40 mg 04/03/19 09:00 04/04/19 09:29 Protonix IV 40 mg DAILY [facility]A Administration Pravastatin Sodium 20 mg 04/02/19 21:00 04/03/19 21:15 Pravachol PO 20 mg HS SH[facility]A Administration Ropinirole HCl 4 mg 04/02/19 16:00 04/04/19 09:34 Requip PO 4 mg TID SHILA Administration Timolol Maleate 1 drops 04/03/19 09:00 04/04/19 09:47 Timoptic BOTH EYES 1 drops DAILY SH[facility]A Administration Objective - Vital Signs Vital signs: Vital Signs Temp 98.0 F 04/04/19 08:00 Pulse 85 04/04/19 11:20 Resp 14 04/04/19 11:00 BP 82/52 04/04/19 11:00 Pulse Ox 97 04/04/19 11:00 Intake & Output 04/03/19 04/04/19 04/04/19 18:59 06:59 18:59 Intake Total 388.736 511.757 200 Output Total 0 1176 0 Balance 388.736 -664.243 200 Weight 91.3 kg Intake: IV 360 220 200 D5 0.45 NACL 260 220 100 Piperacillin-Tazobactam 3 100 100 .375 gm In Sodium Chloride 0.9% 100 ml @ 25 mls/hr IVPB Q12HR [facility] Rx #:[id number] Intake, IV Titration 28.736 171.757 Amount Norepinephrine 32 mg In 28.736 71.757 Sodium Chloride 0.9% 218 ml @ 0.05 MCG/KG/MIN 2. 234 mls/hr IV .Q24H [facility] Rx#:[id number] Piperacillin-Tazobactam 3 100 .375 gm In Sodium Chloride 0.9% 100 ml @ 25 mls/hr IVPB Q12HR [facility] Rx #:[id number] Oral 120 Output: Urine 0 26 0 Hemodialysis 1150 Other: Voiding Method Urinal Urinal - Exam PHYSICAL EXAMINATION: Patient is lying in the bed comfortably, no acute distress, awake alert and oriented. Lethargic.. HEENT: Normocephalic. Neck is supple. Pupils reactive. Nostrils clear. Oral cavity is moist. Ears reveal no drainage. Neck reveals no JVD, carotid bruits, or thyromegaly. CHEST EXAMINATION: Trachea is central. Symmetrical expansion. Bibasilar diminished air entry. Scattered rhonchi. CARDIAC: Normal S1, S2 with no gallops. No murmurs . Irregularly irregular rhythm ABDOMEN: Soft. Bowel sounds normal. No organomegaly. No abdominal bruits. Extremities: 2+ bilateral pitting edema. No clubbing or cyanosis Neurologically awake, alert, oriented but lethargic. No focal deficits noted Skin: No rash or skin lesions. Psychiatric: Coperative. Musculoskeletal: No joint swelling or deformity. Normal range of motion. - Labs CBC & Chem 7: 04/04/19 05:00 04/04/19 05:00 Labs: Abnormal Lab Results - Last 24 Hours (Table) 04/04/19 04/04/19 Range/Units 05:00 05:00 RBC 3.11 L (4.30-5.90) m/uL Hgb 10.8 L (13.0-17.5) gm/dL Hct 34.4 L (39.0-53.0) % MCV 110.7 H (80.0-100.0) fL Plt Count 132 L (150-450) k/uL Lymphocytes # 0.5 L (1.0-4.8) k/uL Macrocytosis Marked A BUN 42 H (9-20) mg/dL Creatinine 4.08 H (0.66-1.25) mg/dL Glucose 125 H (74-99) mg/dL Microbiology - Last 24 Hours (Table) 04/02/19 08:01 Blood Culture - Preliminary Blood No Growth after 48 hours 04/02/19 17:21 Gram Stain - Preliminary Sputum Sputum Culture - Preliminary Gram Neg Bacilli Assessment and Plan Assessment: Bilateral multifocal pneumonia hypotension requiring pressor support. Could be related to septic shock versus hypo-volume sharp Chronic hypotension on Midodrin at home Acute on chronic CHF with systolic dysfunction ejection fraction 45-50% hoarseness of voice, with CT of the neck was unremarkable Swallowing difficulty ESRD on hemodialysis Wednesday Chronic atrial fibrillation on anticoagulation with Eliquis. Rate controlled now. Hypertension Hyperlipidemia COPD not in exacerbation Parkinson's disease Previous history of smoking Plan: Continue with the pressors, continue with hemodialysis. Patient is on Zosyn. Also continue with hydrocortisone and medodrain. Follow-up computed tomography scan of the neck and thorax which was unremarkable. Continue with nectar thick diet for his swallowing problem, follow-up finer results of the respiratory culture.follow-up recommendation by cardiology, nephrology and pulmonary/critical care team. Labs and medication were reviewed.. Continue same treatment. Continue with symptomatic treatment. Resume home medication. Monitor lytes and vitals. DVT and GI prophylaxis. Further recommendations of the clinical course of the patient DVT prophylaxis: Subcutaneous heparin GI Prophylaxis: Pepcid Prognosis is guarded
--- NOTE | 2019-04-04 13:08 | XR ---
EXAMINATION TYPE: XR chest 1V portable DATE OF EXAM: 04/04/2019 HISTORY: Shortness of breath. COMPARISON: 04/03/2019 TECHNIQUE: Single view of the chest is submitted. FINDINGS: Demonstrated are scattered senescent parenchymal change. Patchy perihilar and right basilar infiltrates. Small left effusion all unchanged. The heart is stable. Hilar and mediastinal structures are within normal limits. Degenerative changes are seen of the dorsal spine. IMPRESSION: 1. Patchy perihilar and right basilar infiltrates. Small left effusion all unchanged.
[2019-04-04] MEDS: NOREPINEPHRINE 32 MG in SODIUM CHLORIDE 0.9% 218 ML IV SCH (16:18)
[2019-04-04] MEDS: PRAVASTATIN SODIUM 20 MG TAB PO SCH (20:53)
[2019-04-04] MEDS: ALLOPURINOL 100 MG TAB PO SCH (20:53)
[2019-04-04] MEDS: levETIRAcetam 250 MG TAB PO SCH (20:53)
[2019-04-05 05:47] LABS: HCT 35.5 % (39.0-53.0); Hypochromasia Slight; MCH 34.3 pg (25.0-35.0); MCHC 30.9 g/dL (31.0-37.0); Macrocytosis Marked; Mean Platelet Volume 7.6; Platelet Count 143 k/uL (150-450); RDW 14.4 % (11.5-15.5); WBC 7.2 k/uL (3.8-10.6)
[2019-04-05 05:53] LABS: Calcium 9.3 mg/dL (8.4-10.2); Potassium 4.4 mmol/L (3.5-5.1)
[2019-04-05] MEDS: MIDODRINE 5 MG TAB PO SCH ×3 (06:34→17:18)
[2019-04-05] MEDS: levOCARNitine (WITH SUGAR) 100 MG/ML BOTTLE PO SCH ×3 (06:38→17:19)
[2019-04-05] MEDS: BUDESONIDE 1 MG/2 ML NEBU INHALATION SCH ×2 (07:01→19:53)
[2019-04-05] MEDS: FORMOTEROL FUMARATE 20 MCG/2 ML NEBU INHALATION SCH ×2 (07:01→19:53)
[2019-04-05] MEDS: IPRATROPIUM-ALBUTEROL 3 ML NEB INHALATION SCH ×4 (07:01→19:54)
--- NOTE | 2019-04-05 07:35 | PN ---
PROGRESS NOTE Mr. Harper is an 83-year-old male with known history of chronic persistent atrial fibrillation, history of end-stage renal disease on hemodialysis who had episode of hypotension. He received dialysis yesterday. He is feeling better. Hemodynamically, he is stable. He continues to be on low-dose norepinephrine. He is in atrial fibrillation with controlled ventricular response. He has no symptoms of chest discomfort. He is feeling better overall with improved energy and breathing. He continues to be at this time on allopurinol, Sinemet, midodrine 10 mg 3 times a day, pravastatin 20 mg daily. PHYSICAL EXAMINATION: Blood pressure 103/60 with the heart rate in the 80s. LUNGS: With scattered rhonchi bilaterally. HEART: Irregular, irregular. S1, S2. No S3 with a systolic ejection murmur 2/6 at the base. No diastolic murmur. ABDOMEN: Soft, nontender. EXTREMITIES: With trace to 1+ edema. LAB DATA: Lab data revealed BUN and creatinine 35 and 3.8, potassium 4.4, hemoglobin of 11. IMPRESSION: 1. End-stage renal disease, on hemodialysis. 2. Fluid overload, improved. 3. Possible pneumonia. 4. Atrial fibrillation, not anticoagulated because of recurrent fall. 5. History of hyperlipidemia. RECOMMENDATION: From the cardiac standpoint, we will continue to wean the norepinephrine. Patient's activity will be increased gradually. Depending on the trend of his blood pressure, further adjustment will be made. QUEENIE / ISABELLAN: [id number] /
[2019-04-05] MEDS: HEPARIN SODIUM,PORCINE 5,000 UNIT/ML 1 ML VIAL SQ SCH ×2 (08:41→21:30)
[2019-04-05] MEDS: PIPERACILLIN-TAZOBACTAM 3.375 GM in SODIUM CHLORIDE 0.9% 100 ML IVPB SCH ×2 (08:41→21:30)
[2019-04-05] MEDS: PANTOPRAZOLE 40 MG/10 ML VIAL IV SCH (08:41)
[2019-04-05] MEDS: DOCUSATE 100 MG CAP PO SCH (08:42)
[2019-04-05] MEDS: rOPINIRole HCL 4 MG TABLET PO SCH ×3 (08:42→21:29)
[2019-04-05] MEDS: CARBIDOPA-LEVODOPA 25-100 MG 1 EACH TAB PO SCH ×2 (08:42→21:30)
[2019-04-05] MEDS: GABAPENTIN 100 MG CAP PO SCH ×3 (08:42→21:29)
[2019-04-05] MEDS: HYDROCORTISONE 10 MG TAB PO SCH (08:42)
[2019-04-05] MEDS: BRIMONIDINE TARTRATE 0.2% DROPS 5 ML BTL BOTH EYES SCH ×2 (08:43→21:30)
[2019-04-05] MEDS: TIMOLOL 0.5% OPHTH DROPS 5 ML BTL BOTH EYES SCH (08:43)
--- NOTE | 2019-04-05 10:02 | P.PN ---
Subjective Progress Note Date: 04/05/19 On 04/05/2019 I'm seeing this patient in follow-up in the intensive care unit. The patient underwent dialysis yesterday and is having another session of dialysis today. The patient is on low-dose norepinephrine infusion at 0.05 g per KG per minute. He is being treated for multilobar pneumonia. He had mild to moderate pharyngeal dysphagia and he hasn't had any further episodes of aspiration. CAT scan of the chest showed multilobar pneumonia and the patient is currently on IV Zosyn. I'm confident which be able to wean him off the pressors for now. His echo showed an ejection fraction of 45%. He is currently on oxygen at 2 L per minute nasal cannula. He follows commands and answering questions. No other significant events overnight. Objective - Vital Signs Vital signs: Vital Signs Temp 98 F 04/05/19 04:00 Pulse 89 04/05/19 07:23 Resp 16 04/05/19 07:00 BP 103/63 04/05/19 07:00 Pulse Ox 96 04/05/19 07:00 Intake & Output 04/04/19 04/05/19 04/05/19 18:59 06:59 18:59 Intake Total 571.513 351.457 69.798 Output Total 3000 0 Balance -2428.487 351.457 69.798 Weight 93 kg Intake: IV 340 340 20 D5 0.45 NACL 240 240 20 Piperacillin-Tazobactam 3 100 100 .375 gm In Sodium Chloride 0.9% 100 ml @ 25 mls/hr IVPB Q12HR [facility] Rx #:[id number] Intake, IV Titration 31.513 11.457 49.798 Amount Norepinephrine 32 mg In 31.513 11.457 49.798 Sodium Chloride 0.9% 218 ml @ 0.05 MCG/KG/MIN 2. 234 mls/hr IV .Q24H [facility] Rx#:[id number] Oral 200 Output: Urine 0 0 Hemodialysis 3000 Other: Voiding Method Urinal Urinal # Bowel Movements 1 - Exam Gen. appearance, comfortable no acute distress. Her voice is hoarse and he has been quite muffled. The voice quality has improved Head exam was generally normal. There was no scleral icterus or corneal arcus. Mucous membranes were moist. Neck was supple and without jugular venous distension, thyromegaly, or carotid bruits. Carotids were easily palpable bilaterally. There was no adenopathy. Lungs sounds are diminished and there are crackles in the mid and lower lung brewster bilaterally more so on the right and in the left base. Cardiac exam revealed the PMI to be normally situated and sized. The rhythm was regular and no extrasystoles were noted during several minutes of auscultation. The first and second heart sounds were normal and physiologic splitting of the second heart sound was noted. There were no murmurs, rubs, clicks, or gallops. Abdominal exam revealed normal bowel sounds. The abdomen was soft, non-tender, and without masses, organomegaly, or appreciable enlargement of the abdominal aorta. Extremities there is +1 pitting edema in all 4 extremities mainly in the thighs and lower extremities bilaterally. The patient has an AV fistula in the right upper extremity. Neurologically is awake and alert and there is no focal neurological deficits. - Labs CBC & Chem 7: 04/05/19 05:06 04/05/19 05:10 Labs: Abnormal Lab Results - Last 24 Hours (Table) 04/05/19 04/05/19 Range/Units 05:06 05:10 RBC 3.20 L (4.30-5.90) m/uL Hgb 11.0 L (13.0-17.5) gm/dL Hct 35.5 L (39.0-53.0) % MCV 111.0 H (80.0-100.0) fL MCHC 30.9 L (31.0-37.0) g/dL Plt Count 143 L (150-450) k/uL Macrocytosis Marked A BUN 35 H (9-20) mg/dL Creatinine 3.83 H (0.66-1.25) mg/dL Glucose 130 H (74-99) mg/dL Microbiology - Last 24 Hours (Table) 04/02/19 17:21 Gram Stain - Final Sputum Sputum Culture - Final Escherichia coli 04/02/19 08:01 Blood Culture - Preliminary Blood No Growth after 48 hours Assessment and Plan Plan: 1 multilobar pneumonia, consider aspiration especially with his underlying difficulties in swallowing and swallow evaluation is in progress. The patient is currently on IV Zosyn the CAT scan of the chest showed evidence of multilobar pneumonia most on the lung bases. Consider aspiration. Aspiration is still a possibility despite the fact that the patient had stopped the bedside swallow evaluation. He was cooperative improved. The Neck Did Not Show Any Masses or Tumors. Was Cooperative Is Also Improved. 2 acute hypoxic respiratory failure. currently off BiPAP and is on 4 L of oxygen by nasal cannula 3 acute sepsis with secondary hypotension receiving a low-dose norepinephrine infusion at 0.05 units per KG per minute 4 dysphagia, under investigation passed swallow evaluation 5 hoarseness under investigation, CAT scan of the neck was negative. 6 End stage dialysis-dependent renal failure on dialysis 3 times a week last session of dialysis was yesterday 7 CHF with ejection fraction of 45% 8 COPD 9 history of atrial fibrillation 10 hypertension 11 hyperlipidemia 12 Plan Patient continues to improve. He does have some increased edema in lower extremities bilaterally and signs of fluid overload. He is undergoing another dialysis session today. The goal of ultrafiltration is another 3 L. We are going to remove the triple-lumen catheter after he is off the pressors. We will going to wean off the pressors. Continue IV Zosyn. Set him up on a chair. Continue amiodarone. Allow lower blood pressure as the patient is chronically hypotensive. We'll continue to follow.
--- NOTE | 2019-04-05 10:58 | P.PN ---
Subjective Patient is seen in follow-up for end-stage renal disease. He is maintained on hemodialysis on Wednesday schedule. Currently on low-dose Levophed. Tolerated hemodialysis well yesterday with 3 L ultrafiltration. Oral intake is fair. Cough is improved. Still remains quite edematous. Vital signs are stable. Currently on vasopressors. General: The patient appeared well nourished and normally developed. HEENT: Head exam is unremarkable. Neck is without jugular venous distension. LUNGS: Lungs are clear to auscultation and percussion. Breath sounds decreased. HEART: Rate and Rhythm are regular. First and second heart sounds normal. No murmurs, rubs or gallops. ABDOMEN: Abdominal exam reveals normal bowel sounds. Distention noted. EXTREMITITES: 1+ edema. Objective - Vital Signs Vital signs: Vital Signs Temp 98 F 04/05/19 04:00 Pulse 89 04/05/19 07:23 Resp 16 04/05/19 07:00 BP 103/63 04/05/19 07:00 Pulse Ox 96 04/05/19 07:00 Intake & Output 04/04/19 04/05/19 04/05/19 18:59 06:59 18:59 Intake Total 571.513 351.457 69.798 Output Total 3000 0 Balance -2428.487 351.457 69.798 Weight 93 kg Intake: IV 340 340 20 D5 0.45 NACL 240 240 20 Piperacillin-Tazobactam 3 100 100 .375 gm In Sodium Chloride 0.9% 100 ml @ 25 mls/hr IVPB Q12HR [facility] Rx #:[id number] Intake, IV Titration 31.513 11.457 49.798 Amount Norepinephrine 32 mg In 31.513 11.457 49.798 Sodium Chloride 0.9% 218 ml @ 0.05 MCG/KG/MIN 2. 234 mls/hr IV .Q24H [facility] Rx#:[id number] Oral 200 Output: Urine 0 0 Hemodialysis 3000 Other: Voiding Method Urinal Urinal # Bowel Movements 1 - Labs CBC & Chem 7: 04/05/19 05:06 04/05/19 05:10 Labs: Abnormal Lab Results - Last 24 Hours (Table) 04/05/19 04/05/19 Range/Units 05:06 05:10 RBC 3.20 L (4.30-5.90) m/uL Hgb 11.0 L (13.0-17.5) gm/dL Hct 35.5 L (39.0-53.0) % MCV 111.0 H (80.0-100.0) fL MCHC 30.9 L (31.0-37.0) g/dL Plt Count 143 L (150-450) k/uL Macrocytosis Marked A BUN 35 H (9-20) mg/dL Creatinine 3.83 H (0.66-1.25) mg/dL Glucose 130 H (74-99) mg/dL Microbiology - Last 24 Hours (Table) 04/02/19 08:01 Blood Culture - Preliminary Blood No Growth after 72 hours 04/02/19 17:21 Gram Stain - Final Sputum Sputum Culture - Final Escherichia coli Assessment and Plan Plan: Assessment: 1. End-stage renal disease maintained on hemodialysis on Wednesday schedule. 2. Chronic hypotension maintained on midodrine and Levophed. Patient did receive 1 L normal saline bolus in the ER. Cortisol level normal. 3. Acute on chronic systolic CHF with ejection fraction of 45-50%. 4. Volume overload. 5. Pneumonia maintained on antibiotics. Sputum culture positive for E. coli. Plan: Maintain midodrine 10 mg 3 times daily. Currently seen while undergoing hemodialysis. Another treatment tomorrow mostly for ultrafiltration. Wean Levophed.
[2019-04-05] MEDS ORDERED: ACETAMINOPHEN TAB 500 MG TAB PO PRN (15:43)
[2019-04-05] MEDS ORDERED: HYDROcodone/APAP 5-325MG 1 EACH TAB PO PRN (15:43)
[2019-04-05] MEDS: NOREPINEPHRINE 32 MG in SODIUM CHLORIDE 0.9% 218 ML IV SCH (17:10)
[2019-04-05] MEDS: DEXTROSE 5%-0.45% NACL 1,000 ML IV SCH (17:11)
--- NOTE | 2019-04-05 17:29 | PN ---
PROGRESS NOTE DATE OF SERVICE: 04/05/2019 This 83-year-old gentleman who was admitted with bilateral multifocal pneumonia also had acute respiratory failure. The patient is undergoing hemodialysis also at this time. Patient also had acute on chronic CHF with with ejection fraction 45% to 50%. The most recent chest x-ray, which was personally reviewed by me, showed significant bilateral opacities with some atelectasis also. Multiple consultants, including Cardiology, Pulmonology and Nephrology, are following the patient closely. Past medical history reviewed. REVIEW OF SYSTEMS: CARDIOVASCULAR SYSTEM: As mentioned earlier. RESPIRATORY SYSTEM: As mentioned earlier. GI: No nausea, vomiting. : No dysuria or retention. NERVOUS SYSTEM: No numbness, weakness. CURRENT MEDICATIONS: Reviewed. They include: 1. DuoNeb q.i.d. and p.r.n. 2. Zyloprim 100 mg p.o. at bedtime. 3. Alphagan 0.2 one drop both eyes. 4. Pulmicort 1 mg b.i.d. 5. Sinemet 10/100 p.o. b.i.d. 6. Colace 100 mg p.o. daily. 7. Perforomist 20 mg b.i.d. 8. Neurontin 100 mg p.o. t.i.d. 9. Heparin 5000 units subcutaneously b.i.d. 10.Cortef 10 mg p.o. daily. 11.Keppra 250 mg p.o. at bedtime. 12.Levocarnitine 330 mg p.o. daily. 13.ProAmatine. 14.Narcan. 15.Norepinephrine. 16.Protonix 40 mg p.o. daily. 17.Zosyn 3.375 IV q.i.d. 18.Pravachol 20 mg at bedtime. 19.Requip. 20.Timoptic. PHYSICAL EXAMINATION: Patient is alert, oriented x3. Pulse 73, blood pressure 98/57, respiration 10, temperature 98 degrees, pulse ox 97% on 2 L. HEENT: Conjunctivae normal. Oral mucosa moist. NECK: No jugular venous distention. No carotid bruit. No lymph node enlargement. CARDIOVASCULAR SYSTEM: S1, S2 muffled. No S3. No S4. RESPIRATORY SYSTEM: Breath sounds diminished at the bases. Bilateral scattered rhonchi and crackles. ABDOMEN: Soft, non-tender. No mass palpable. LEGS: No edema. No swelling. NERVOUS SYSTEM: Higher functions as mentioned earlier. Moves all 4 limbs. No focal motor or sensory deficit. LYMPHATICS: No lymph node palpable in neck, axillae or groin. SKIN: No ulcer, rash, bleeding. JOINTS: No active deforming arthropathy. LABS: WBC 7.2, hemoglobin 11. Sodium 138, potassium 4.4, creatinine 3.83. ASSESSMENT: 1. Acute bilateral multifocal pneumonia with sepsis, present on admission. 2. Acute hypoxic respiratory failure. 3. Congestive heart failure, acute exacerbation, with acute on chronic systolic dysfunction, ejection fraction 45% to 50%. 4. Sepsis, possibly secondary to septic shock and hypovolemia. 5. Chronic hypotension with midodrine at home. 6. Hoarseness of voice. 7. End-stage renal disease, on hemodialysis Wednesday, Wednesday, Wednesday. 8. Swallowing difficulties. 9. Chronic atrial fibrillation, on anticoagulation with Eliquis. 10.Hypertension. 11.Hyperlipidemia. 12.Chronic obstructive pulmonary disease. 13.Parkinson's. 14.Previous history of smoking. 15.Hyponatremia. 16.Increased mean corpuscular volume. RECOMMENDATIONS AND DISCUSSION: In this 83-year-old gentleman who presented with multiple complex medical issues, we will monitor the patient closely, continue the current medications, continue with symptomatic treatment, continue with the bronchodilators, continue with empiric antibiotics. Otherwise, I would recommend incentive spirometry. Continue the hemodialysis. DVT prophylaxis. PT/OT evaluation. I discussed the case with the patient and family at this time. The patient had difficulties in going to the ECF rehab previously. The patient apparently checked out of one of the ECFs within a few hours of admission. However, we will recommend PT/OT evaluation to assess home safety as well. Overall prognosis is guarded because of multiple complex medical issues. Further recommendations to follow. See orders for further details. MMODL / IJN: [id number] /
[2019-04-05] MEDS: levETIRAcetam 250 MG TAB PO SCH (21:29)
[2019-04-05] MEDS: PRAVASTATIN SODIUM 20 MG TAB PO SCH (21:29)
[2019-04-05] MEDS: ALLOPURINOL 100 MG TAB PO SCH (21:29)
[2019-04-06 05:52] LABS: HCT 35.4 % (39.0-53.0); HGB 11.4 gm/dL (13.0-17.5); Hypochromasia Slight; MCH 35.7 pg (25.0-35.0); MCHC 32.2 g/dL (31.0-37.0); Macrocytosis Marked; Platelet Count 108 k/uL (150-450); RBC 3.19 m/uL (4.30-5.90); RDW 14.5 % (11.5-15.5); WBC 7.6 k/uL (3.8-10.6)
[2019-04-06 05:58] LABS: MCV 110.7 fL (80.0-100.0)
[2019-04-06 06:07] LABS: Calcium 9.5 mg/dL (8.4-10.2); Potassium 4.2 mmol/L (3.5-5.1)
[2019-04-06] MEDS: IPRATROPIUM-ALBUTEROL 3 ML NEB INHALATION SCH ×4 (07:45→19:15)
[2019-04-06] MEDS: FORMOTEROL FUMARATE 20 MCG/2 ML NEBU INHALATION SCH ×2 (07:45→19:15)
[2019-04-06] MEDS: BUDESONIDE 1 MG/2 ML NEBU INHALATION SCH ×2 (07:45→19:15)
--- NOTE | 2019-04-06 08:16 | XR ---
EXAMINATION TYPE: XR chest 1V portable DATE OF EXAM: 04/06/2019 CLINICAL HISTORY: Difficulty breathing progress study. TECHNIQUE: Single AP portable upright view of the chest is obtained. COMPARISON: Chest x-ray from [address] from 3 days earlier. FINDINGS: Stable left subclavian central venous catheter. Background chronic parenchymal change with tiny right pleural effusion and small size left pleural effusion with associated left basilar consol idation and/or atelectasis. Persistent cardiomegaly with atherosclerotic thoracic aorta. Osseous stru ctures remain demineralized. IMPRESSION: Overall stable findings, chronic parenchymal change and cardiomegaly with tiny right an d small size left pleural effusions with left basilar consolidation and/or atelectasis are all redemo nstrated.
[2019-04-06] MEDS: levOCARNitine (WITH SUGAR) 100 MG/ML BOTTLE PO SCH ×3 (08:35→17:05)
[2019-04-06] MEDS: PIPERACILLIN-TAZOBACTAM 3.375 GM in SODIUM CHLORIDE 0.9% 100 ML IVPB SCH ×2 (08:36→21:46)
[2019-04-06] MEDS: PANTOPRAZOLE 40 MG/10 ML VIAL IV SCH (08:36)
[2019-04-06] MEDS: MIDODRINE 5 MG TAB PO SCH ×3 (08:36→17:05)
[2019-04-06] MEDS: DOCUSATE 100 MG CAP PO SCH (08:36)
[2019-04-06] MEDS: CARBIDOPA-LEVODOPA 25-100 MG 1 EACH TAB PO SCH ×2 (08:36→21:48)
[2019-04-06] MEDS: BRIMONIDINE TARTRATE 0.2% DROPS 5 ML BTL BOTH EYES SCH ×2 (08:37→21:48)
[2019-04-06] MEDS: GABAPENTIN 100 MG CAP PO SCH ×3 (08:37→21:48)
[2019-04-06] MEDS: TIMOLOL 0.5% OPHTH DROPS 5 ML BTL BOTH EYES SCH (08:37)
[2019-04-06] MEDS: HYDROCORTISONE 10 MG TAB PO SCH (08:38)
[2019-04-06] MEDS: rOPINIRole HCL 4 MG TABLET PO SCH ×3 (08:38→21:48)
--- NOTE | 2019-04-06 08:50 | P.PN ---
Subjective Progress Note Date: 04/06/19 Principal diagnosis: This is an 83-year-old male with ESRD and on dialysis daily because of shortness of breath and inability to tolerate ultrafiltration. He was dialyzed yesterday. He is going to be dialyzed today as well He remains on levo fed because of low blood pressures. He looks well and is on nasal cannula oxygen. His appetite is fair. No nausea vomiting diarrhea no chest pain His workup has included a normal cortisol level at 18 mcg/dL. A ACTH is slightly high at 47.2 pg per mL of normal being up to 45.99. An echocardiogram was done in 2018 shows 45% ejection fraction. No recent TSH is available. Last one was normal at 1.3 in December 2014 Objective - Vital Signs Vital signs: Vital Signs Temp 97.8 F 04/06/19 08:00 Pulse 99 04/06/19 08:10 Resp 24 04/06/19 08:00 BP 102/66 04/06/19 08:00 Pulse Ox 95 04/06/19 08:00 Intake & Output 04/05/19 04/06/19 04/06/19 18:59 06:59 18:59 Intake Total 640.631 359.118 38.693 Output Total 3000 0 0 Balance -2359.369 359.118 38.693 Weight 91.8 kg Intake: IV 340 340 20 D5 0.45 NACL 240 240 20 Piperacillin-Tazobactam 3 100 100 .375 gm In Sodium Chloride 0.9% 100 ml @ 25 mls/hr IVPB Q12HR [facility] Rx #:[id number] Intake, IV Titration 60.631 19.118 18.693 Amount Norepinephrine 32 mg In 60.631 19.118 18.693 Sodium Chloride 0.9% 218 ml @ 0.05 MCG/KG/MIN 2. 234 mls/hr IV .Q24H [facility] Rx#:[id number] Oral 240 Output: Urine 0 0 0 Hemodialysis 3000 Other: Voiding Method Urinal Urinal # Voids 0 0 # Bowel Movements 1 On examination is awake alert and follows commands. Looks ill. General: The patient appeared well nourished and normally developed. HEENT: Head exam is unremarkable. Neck is without jugular venous distension. LUNGS: Lungs are clear to auscultation and percussion. Breath sounds decreased. HEART: Rate and Rhythm are regular. First and second heart sounds normal. No murmurs, rubs or gallops. ABDOMEN: Abdominal exam reveals normal bowel sounds. Distention noted. EXTREMITITES: 1+ edema. Neurologically awake alert but generalized weakness - Labs CBC & Chem 7: 04/06/19 05:34 04/06/19 05:34 Labs: Abnormal Lab Results - Last 24 Hours (Table) 04/06/19 04/06/19 Range/Units 05:34 05:34 RBC 3.19 L (4.30-5.90) m/uL Hgb 11.4 L (13.0-17.5) gm/dL Hct 35.4 L (39.0-53.0) % MCV 110.7 H (80.0-100.0) fL MCH 35.7 H (25.0-35.0) pg Plt Count 108 L (150-450) k/uL Macrocytosis Marked A BUN 32 H (9-20) mg/dL Creatinine 3.92 H (0.66-1.25) mg/dL Glucose 118 H (74-99) mg/dL Microbiology - Last 24 Hours (Table) 04/02/19 08:01 Blood Culture - Preliminary Blood No Growth after 72 hours 04/02/19 17:21 Gram Stain - Final Sputum Sputum Culture - Final Escherichia coli Assessment and Plan Assessment: Impression 1. ESRD on dialysis Wednesday. 2. Admitted with hypotension during dialysis requiring midodrine and levo fed. On dialysis every day because of an inability to tolerate ultrafiltration and congestive heart failure seen on chest x-ray. 3. Hypotension. Cause not very clear. Cortisol level normal, ACTH slightly high, TSH not available- last one done 2014 was normal. 4. Ejection fraction 45-50% based on a 2018 echocardiogram. 5. Pneumonia on antibiotics Recommendation 1. Will continue dialysis today ultrafiltration 2.5 L O2 hours. Ultrafiltration today no dialysis. 2. Obtain TSH. 3. Repeat echocardiogram to ensure there is no pericardial tamponade
[2019-04-06] MEDS: HEPARIN SODIUM,PORCINE 5,000 UNIT/ML 1 ML VIAL SQ SCH ×2 (08:53→21:47)
--- NOTE | 2019-04-06 10:07 | P.PN ---
Subjective Progress Note Date: 04/06/19 On today's evaluation of 04/06/2019, the patient is being seen in follow-up. Is having daily dialysis. He had another dialysis session yesterday and another dialysis session is in progress now with a goal of ultrafiltration of another 5 L. He does have some increased edema in lower extremities bilaterally which is still present. His LV ejection fraction is 45%. The fluid about 2 by nasal cannula. He is being treated for multilobar pneumonia. Chest x-ray from today showing stable findings. He remains on IV Zosyn. Pressors were discontinued yesterday and the patient was off pressors throughout the day yesterday and overnight the patient became hypotensive again and had to be placed back on norepinephrine infusion and currently it's running at 0.06 g per KG per minute. This was started for a systolic blood pressure that was as low as in the low 70s. He didn't have a good night sleep yesterday and this morning is a bit more lethargic. He is arousable. He follows commands. He answers questions. He did have a small tiny breakfast this morning. White cell count is at 7.6. Hemo globin is 11.4. No focal neurological deficit. No aspiration. Objective - Vital Signs Vital signs: Vital Signs Temp 97.8 F 04/06/19 08:00 Pulse 99 04/06/19 08:10 Resp 24 04/06/19 08:00 BP 102/66 04/06/19 08:00 Pulse Ox 95 04/06/19 08:00 Intake & Output 04/05/19 04/06/19 04/06/19 18:59 06:59 18:59 Intake Total 640.631 359.118 38.693 Output Total 3000 0 0 Balance -2359.369 359.118 38.693 Weight 91.8 kg Intake: IV 340 340 20 D5 0.45 NACL 240 240 20 Piperacillin-Tazobactam 3 100 100 .375 gm In Sodium Chloride 0.9% 100 ml @ 25 mls/hr IVPB Q12HR [facility] Rx #:[id number] Intake, IV Titration 60.631 19.118 18.693 Amount Norepinephrine 32 mg In 60.631 19.118 18.693 Sodium Chloride 0.9% 218 ml @ 0.05 MCG/KG/MIN 2. 234 mls/hr IV .Q24H [facility] Rx#:[id number] Oral 240 Output: Urine 0 0 0 Hemodialysis 3000 Other: Voiding Method Urinal Urinal # Voids 0 0 # Bowel Movements 1 - Exam Gen. appearance, comfortable no acute distress. Her voice is hoarse and he has been quite muffled. The voice quality has improved currently on 4 L of oxygen by nasal cannula. Head exam was generally normal. There was no scleral icterus or corneal arcus. Mucous membranes were moist. Neck was supple and without jugular venous distension, thyromegaly, or carotid bruits. Carotids were easily palpable bilaterally. There was no adenopathy. Lungs sounds are diminished and there are crackles in the mid and lower lung brewster bilaterally more so on the right and in the left base. Cardiac exam revealed the PMI to be normally situated and sized. The rhythm was regular and no extrasystoles were noted during several minutes of auscultation. The first and second heart sounds were normal and physiologic splitting of the second heart sound was noted. There were no murmurs, rubs, clicks, or gallops. Abdominal exam revealed normal bowel sounds. The abdomen was soft, non-tender, and without masses, organomegaly, or appreciable enlargement of the abdominal aorta. Extremities there is +1 pitting edema in all 4 extremities mainly in the thighs and lower extremities bilaterally. The patient has an AV fistula in the right upper extremity. Neurologically is awake and alert and there is no focal neurological deficits. - Labs CBC & Chem 7: 04/06/19 05:34 04/06/19 05:34 Labs: Abnormal Lab Results - Last 24 Hours (Table) 04/06/19 04/06/19 Range/Units 05:34 05:34 RBC 3.19 L (4.30-5.90) m/uL Hgb 11.4 L (13.0-17.5) gm/dL Hct 35.4 L (39.0-53.0) % MCV 110.7 H (80.0-100.0) fL MCH 35.7 H (25.0-35.0) pg Plt Count 108 L (150-450) k/uL Macrocytosis Marked A BUN 32 H (9-20) mg/dL Creatinine 3.92 H (0.66-1.25) mg/dL Glucose 118 H (74-99) mg/dL Microbiology - Last 24 Hours (Table) 04/02/19 08:01 Blood Culture - Preliminary Blood No Growth after 72 hours 04/02/19 17:21 Gram Stain - Final Sputum Sputum Culture - Final Escherichia coli Assessment and Plan Plan: 1 multilobar pneumonia, consider aspiration especially with his underlying difficulties in swallowing and the patient remains on IV Zosyn and the chest x-ray from today is showing stable findings. He remains on 4 L of oxygen by nasal cannula. No aspiration for now. 2 acute hypoxic respiratory failure. currently off BiPAP and is on 4 L of oxygen by nasal cannula 3 acute sepsis with secondary hypotension receiving a low-dose norepinephrine infusion at 0.06 units per KG per minute 4 dysphagia, under investigation passed swallow evaluation 5 hoarseness under investigation, CAT scan of the neck was negative. 6 End stage dialysis-dependent renal failure on dialysis 3 times a week last session of dialysis was yesterday 7 CHF with ejection fraction of 45% 8 COPD 9 history of atrial fibrillation 10 hypertension 11 hyperlipidemia 12 chronic hypotension currently the patient is back on pressors. Plan A dialysis today. Continue IV Zosyn. Titrate pressors. Aspiration precautions. Incentive spirometer. Supportive care. Nephrology to follow. ICU as long as he remains to have a labile blood pressure was fluctuations and episodes of hypotension.
[2019-04-06] MEDS: DEXTROSE 5%-0.45% NACL 1,000 ML IV SCH (10:19)
[2019-04-06] MEDS: NOREPINEPHRINE 32 MG in SODIUM CHLORIDE 0.9% 218 ML IV SCH (10:20)
[2019-04-06 11:36] LABS: Glucose,Whole Blood 108 mg/dL (75-99)
[2019-04-06] MEDS: FOLIC ACID 1 MG TAB PO SCH (12:11)
[2019-04-06] MEDS: MULTIVITAMINS, THERA 1 EACH TAB PO SCH (12:11)
[2019-04-06] MEDS: THIAMINE 100 MG TAB PO SCH (12:11)
--- NOTE | 2019-04-06 13:20 | PN ---
PROGRESS NOTE Andrew is an 83-year-old gentleman who is admitted to the intensive care unit with renal failure, chronic persistent atrial fibrillation, on hemodialysis. This morning he is feeling somewhat better. Still requiring Levophed. Feels somewhat fatigued and tired, but is otherwise doing well. Remains in atrial fibrillation with controlled ventricular rate. CURRENT MEDICATIONS: Include nebulizers, Sinemet, midodrine, Pravachol, Protonix and Levophed. EXAM: Heart rate is 84 beats per minute, blood pressure is 93/69, respiratory rate is 18. Chest exam reveals diminished air entry at the bases. Heart exam reveals first and second heart sounds. No gallop. Exam of extremities reveal mild edema bilaterally but has significantly improved from baseline. LAB: Show a hemoglobin of 11.4, platelet count is 108, potassium is 4.2, BUN is 32, creatinine is 3.9. ASSESSMENT: 1. End-stage renal disease on hemodialysis. 2. Hypotension. 3. Persistent atrial fibrillation. PLAN: Patient is not a candidate for long-term anticoagulation. Continue with the Levophed. Continue with the dialysis. MMODL / IJN: [id number] /
[2019-04-06 16:47] LABS: Glucose,Whole Blood 233 mg/dL (75-99)
[2019-04-06] MEDS: levETIRAcetam 250 MG TAB PO SCH (21:48)
[2019-04-06] MEDS: ALLOPURINOL 100 MG TAB PO SCH (21:48)
[2019-04-06] MEDS: PRAVASTATIN SODIUM 20 MG TAB PO SCH (21:48)
--- NOTE | 2019-04-06 23:23 | PN ---
PROGRESS NOTE DATE OF SERVICE: 04/06/2019 This 83-year-old gentleman who was admitted with acute bilateral multifocal pneumonia is being closely monitored. The patient today is still complaining of shortness of breath. The patient is on Levophed drip on a minimal level. Two liters of fluid has been removed. Dr. Gloria is following the patient closely. Chest x-ray showed bilateral lesions and some fluid overload also. PAST MEDICAL HISTORY: Reviewed. REVIEW OF SYSTEMS: CARDIOVASCULAR SYSTEM: No angina, palpitations. RESPIRATORY: As mentioned earlier. GI: As mentioned earlier. : As mentioned earlier. NERVOUS SYSTEM: No numbness, generalized weakness. CURRENT MEDICATIONS: 1. Tylenol p.r.n. 2. [place] 5 mg q.6h. 3. DuoNeb q.i.d. and p.r.n. 4. Zyloprim 100 mg q.h.s. 5. Alphagan eye drops. 6. Pulmicort 1 mg. 7. Sinemet 10/100, 1 p.o. b.i.d. 8. Colace 100 mg. 9. Folic acid. 10.Perforomist. 11.Neurontin. 12.Heparin. 13.Cortef. 14.Keppra. 15.ProAmatine. 16.Narcan. 17.Pravachol. PHYSICAL EXAM: Patient is alert, oriented x2. Pulse 80, blood pressure 89/50 on pressors, the temperature is 97.6. pulse ox 100 percent on 2 L. HEENT: Conjunctivae normal. Oral mucosa moist. NECK: No jugular venous distention. No lymph node enlargement. CARDIOVASCULAR: S1, S2. RESPIRATORY: Diminished breath sounds at the bases. Bilateral scattered rhonchi and crackles. ABDOMEN: Soft, nontender. LEGS: No swelling. NERVOUS SYSTEM: Mild diffuse weakness. LABS: WBC 7.2, hemoglobin 11.4. Accu-Cheks 108, 233. ASSESSMENT: 1. Acute bilateral multifocal pneumonia with sepsis, present on admission. 2. Acute hypoxic respiratory failure. 3. Congestive heart failure acute exacerbation with acute on chronic systolic dysfunction, ejection fraction 45-50 percent. 4. Sepsis possibly secondary septic shock and hypovolemia. 5. Chronic hypotension on midodrine. 6. Hoarseness of voice. 7. End stage renal disease on hemodialysis Wednesday, Wednesday, Wednesday. 8. Swallowing difficulties. 9. Chronic atrial fibrillation on anticoagulation with Eliquis. 10.Hypertension. 11.Hyperlipidemia. 12.Chronic obstructive pulmonary disease. 13.Parkinson's. 14.Gait dysfunction. 15.Previous history of smoking. 16.Hyponatremia. 17.Increased MCV. RECOMMENDATIONS AND DISCUSSION: Recommend to continue current medications, management and symptomatic treatment. Otherwise, continue the antibiotics. Prognosis guarded because of multiple complex medical issues and further recommendations to follow. MMODL / IJN: [id number] /
--- NOTE | 2019-04-07 06:54 | XR ---
EXAMINATION TYPE: XR chest 1V portable DATE OF EXAM: 04/07/2019 CLINICAL HISTORY: Difficulty breathing progress study. TECHNIQUE: Single AP portable semiupright view of the chest is obtained. COMPARISON: Chest x-ray from one day earlier and older studies. CT chest 4 days ago FINDINGS: Stable left subclavian central venous catheter. Background chronic parenchymal change with small left greater than right pleural effusions with associated bibasilar atelectasis and/or infiltr ate. Persistent cardiomegaly with atherosclerotic thoracic aorta. Degenerative change both shoulders redemonstrated. IMPRESSION: Chronic parenchymal changes and cardiomegaly with small left greater than right pleural e ffusions and associated bibasilar acute atelectasis and/or infiltrate are all redemonstrated. Finding s stable or slightly worse from most recent study.
--- NOTE | 2019-04-07 07:56 | ECHOF ---
Referral Reason:hypotension MEASUREMENTS -------- HEIGHT: 180.3 cm WEIGHT: 91.6 kg BP: 102/66 RVIDd: 5.0 cm (< 3.3) IVSd: 1.2 cm (0.6 - 1.1) LVIDd: 5.2 cm (3.9 - 5.3) LVPWd: 1.5 cm (0.6 - 1.1) IVSs: 1.7 cm LVIDs: 3.9 cm LVPWs: 1.9 cm LAESV Index (A-L): 36.55 ml/m Ao Diam: 3.4 cm (2.0 - 3.7) AV Cusp: 2.7 cm (1.5 - 2.6) LA Diam: 5.0 cm (2.7 - 3.8) MV EXCURSION: 27.419 mm (> 18.000) MV EF SLOPE: 168 mm/s (70 - 150) EPSS: 0.1 cm RAP: 5.00 mmHg RVSP: 45.94 mmHg FINDINGS -------- Atrial fibrillation. This was a technically adequate study. The left ventricular size is normal. There is mild concentric left ventricular hypertrophy. Overa ll left ventricular systolic function is low-normal with, an EF between 50 - 55 %. Left ventricular fillimg pressure cannot be estimated due to Atrial fibrillation. The right ventricle is moderate to severely enlarged. LA is moderately dilated 34-39 ml/m2 The right atrium is moderately enlarged. Interatrial and interventricular septum intact. The aortic valve is trileaflet and appears structurally normal. There is mild aortic valve sclerosi s. There is no evidence of aortic regurgitation. There is no evidence of aortic stenosis. Mild mitral annular calcification present. [id number]-di-wfrtzrtf mitral regurgitation is present. Pynr-jk-rvbxqoyq tricuspid regurgitation present. There is mild to moderate pulmonary hypertension. The right ventricular systolic pressure, as measured by Doppler, is 45.94mmHg. There is no pulmonic regurgitation present. The aortic root size is normal. IVC Not well visulized. There is no pericardial effusion. CONCLUSIONS -------- 1. Atrial fibrillation. 2. This was a technically adequate study. 3. The left ventricular size is normal. 4. There is mild concentric left ventricular hypertrophy. 5. Overall left ventricular systolic function is low-normal with, an EF between 50 - 55 %. 6. Left ventricular fillimg pressure cannot be estimated due to Atrial fibrillation. 7. The right ventricle is moderate to severely enlarged. 8. LA is moderately dilated 34-39 ml/m2 9. The right atrium is moderately enlarged. 10. Interatrial and interventricular septum intact. 11. The aortic valve is trileaflet and appears structurally normal. 12. There is mild aortic valve sclerosis. 13. There is no evidence of aortic regurgitation. 14. There is no evidence of aortic stenosis. 15. Mild mitral annular calcification present. 16. Eeyn-li-jkvaqmcf mitral regurgitation is present. 17. Mrrr-xo-bykxzieg tricuspid regurgitation present. 18. There is mild to moderate pulmonary hypertension. 19. The right ventricular systolic pressure, as measured by Doppler, is 45.94mmHg. 20. There is no pulmonic regurgitation present. 21. The aortic root size is normal. 22. IVC Not well visulized. 23. There is no pericardial effusion. COLUMNIST: Teagan Hodge RDCS
[2019-04-07] MEDS: BUDESONIDE 1 MG/2 ML NEBU INHALATION SCH ×2 (08:00→20:15)
[2019-04-07] MEDS: FORMOTEROL FUMARATE 20 MCG/2 ML NEBU INHALATION SCH ×2 (08:00→20:15)
[2019-04-07] MEDS: IPRATROPIUM-ALBUTEROL 3 ML NEB INHALATION SCH ×4 (08:00→20:15)
[2019-04-07] MEDS: CARBIDOPA-LEVODOPA 25-100 MG 1 EACH TAB PO SCH ×2 (08:44→20:00)
[2019-04-07] MEDS: MIDODRINE 5 MG TAB PO SCH ×3 (08:46→17:56)
[2019-04-07] MEDS: HEPARIN SODIUM,PORCINE 5,000 UNIT/ML 1 ML VIAL SQ SCH ×2 (08:47→20:01)
[2019-04-07] MEDS: DOCUSATE 100 MG CAP PO SCH (08:47)
[2019-04-07] MEDS: GABAPENTIN 100 MG CAP PO SCH ×3 (08:47→20:00)
[2019-04-07] MEDS: HYDROCORTISONE 10 MG TAB PO SCH (08:48)
[2019-04-07] MEDS: levOCARNitine (WITH SUGAR) 100 MG/ML BOTTLE PO SCH ×3 (08:49→17:55)
[2019-04-07] MEDS: PANTOPRAZOLE SODIUM 40 MG GRANULE PKT PO SCH (08:50)
[2019-04-07] MEDS: PIPERACILLIN-TAZOBACTAM 3.375 GM in SODIUM CHLORIDE 0.9% 100 ML IVPB SCH ×2 (08:50→20:01)
[2019-04-07] MEDS: rOPINIRole HCL 4 MG TABLET PO SCH ×3 (08:51→20:01)
[2019-04-07] MEDS: TIMOLOL 0.5% OPHTH DROPS 5 ML BTL BOTH EYES SCH (08:51)
[2019-04-07] MEDS: BRIMONIDINE TARTRATE 0.2% DROPS 5 ML BTL BOTH EYES SCH ×2 (08:52→20:01)
[2019-04-07 08:53] LABS: HCT 40.7 % (39.0-53.0); HGB 12.7 gm/dL (13.0-17.5); Hypochromasia Slight; MCH 34.3 pg (25.0-35.0); MCHC 31.1 g/dL (31.0-37.0); MCV 110.2 fL (80.0-100.0); Macrocytosis Marked; Mean Platelet Volume 7.4; Platelet Count 150 k/uL (150-450); RDW 14.3 % (11.5-15.5); WBC 9.6 k/uL (3.8-10.6)
[2019-04-07 08:59] LABS: Calcium 9.7 mg/dL (8.4-10.2); Potassium 5.3 mmol/L (3.5-5.1)
--- NOTE | 2019-04-07 09:48 | P.PN ---
Subjective Progress Note Date: 04/07/19 Principal diagnosis: This is an 83-year-old male with ESRD and on dialysis daily because of shortness of breath and inability to tolerate ultrafiltration. He was dialyzed on a daily basis for the last 6 days including today. He is able to tolerate ultrafiltration of about 2-2-1/2 L but his blood pressure is in the 80s to 90s on small doses of levo fed. His appetite is fair. Remained short of breath looks weak and ill He looks well and is on nasal cannula oxygen. His appetite is fair. No nausea vomiting diarrhea no chest pain His workup has included a normal cortisol level at 18 mcg/dL. A ACTH is slightly high at 47.2 pg per mL of normal being up to 45.99. TSH normal . An echocardiogram was done in 2018 shows 45% ejection fraction. repeat echocardiogram done yesterday 04/06/2019 shows an ejection fraction of 50-55% moderate pulmonary hypertension. No significant valve abnormalities to explain his low blood pressure. No pericardial effusion and his hemoglobin is 12.7 calcium is normal. Objective - Vital Signs Vital signs: Vital Signs Temp 98.1 F 04/07/19 08:00 Pulse 86 04/07/19 09:00 Resp 20 04/07/19 09:00 BP 94/55 04/07/19 09:00 Pulse Ox 98 04/07/19 09:00 Intake & Output 04/06/19 04/07/19 04/07/19 18:59 06:59 18:59 Intake Total 837.774 360 65.643 Output Total 2500 0 0 Balance -1662.226 360 65.643 Weight 89 kg Intake: IV 340 360 40 D5 0.45 NACL 240 260 40 Piperacillin-Tazobactam 3 100 100 .375 gm In Sodium Chloride 0.9% 100 ml @ 25 mls/hr IVPB Q12HR [facility] Rx #:[id number] Intake, IV Titration 47.774 25.643 Amount Norepinephrine 32 mg In 47.774 25.643 Sodium Chloride 0.9% 218 ml @ 0.05 MCG/KG/MIN 2. 234 mls/hr IV .Q24H [facility] Rx#:[id number] Oral 450 Output: Urine 0 0 0 Hemodialysis 2500 Other: Voiding Method Urinal Urinal # Voids 0 0 0 # Bowel Movements 1 1 Ill-looking male in bed, on levo fed small doses blood pressures in the 80s to 90s occasionally 100. HEENT exam no JVP neck is supple no facial asymmetry Lungs are clear to auscultation fair air entry bilaterally HSK consists generally showing congestive heart failure Heart sounds are unremarkable for any murmur rub gallop. He is in normal sinus rhythm Abdomen soft nontender no organomegaly ascites masses Extremity exam is 1-2+ edema Neurologically awake alert oriented but generalized weakness - Labs CBC & Chem 7: 04/07/19 08:13 04/07/19 08:13 Labs: Abnormal Lab Results - Last 24 Hours (Table) 04/06/19 04/06/19 04/07/19 Range/Units 11:34 16:46 08:13 RBC 3.70 L (4.30-5.90) m/uL Hgb 12.7 L (13.0-17.5) gm/dL MCV 110.2 H (80.0-100.0) fL Macrocytosis Marked A Potassium (3.5-5.1) mmol/L BUN (9-20) mg/dL Creatinine (0.66-1.25) mg/dL Glucose (74-99) mg/dL POC Glucose (mg/dL) 108 H 233 H (75-99) mg/dL 04/07/19 Range/Units 08:13 RBC (4.30-5.90) m/uL Hgb (13.0-17.5) gm/dL MCV (80.0-100.0) fL Macrocytosis Potassium 5.3 H (3.5-5.1) mmol/L BUN 44 H (9-20) mg/dL Creatinine 4.92 H (0.66-1.25) mg/dL Glucose 107 H (74-99) mg/dL POC Glucose (mg/dL) (75-99) mg/dL Microbiology - Last 24 Hours (Table) 04/02/19 08:01 Blood Culture - Preliminary Blood No Growth after 96 hours Assessment and Plan Assessment: Impression 1. ESRD on dialysis Wednesday. Currently on daily dialysis and today being #6 dialysis on his constant daily basis. We're attempting 3 L of ultrafiltration or 3-1/2 hours with sodium programming and cold dialysate at 35 5 2. Admitted with hypotension during dialysis requiring midodrine and levo fed. Echocardiogram normal TSH is normal cortisol normal. Cause not very clear 3. Pneumonia on antibiotics Recommendation 1. Will continue dialysis today ultrafiltration 3 L with sodium programming, step, 145, temperature 35 5. 2. Will continue dialysis tomorrow, pure ultrafiltration for 2-1/2 L over 2 hours tomorrow .
--- NOTE | 2019-04-07 10:10 | P.PN ---
Subjective Progress Note Date: 04/07/19 On 04/07/2019 the patient is being seen in follow-up. This is his fourth session of dialysis. Yesterday he had a session of dialysis with ultrafiltration of 2.5 L and the target of 3 L on today's evaluation has been signed. He has still requiring pressors. He was briefly off the levo fed yesterday and currently is back on 0.05 g per KG per minute. Off the levo, the patient dropped his blood pressure down to the 70s. He is currently on oxygen at 4 L per minute nasal cannula. I repeated the chest x-ray and there is small left-sided pleural effusion. Bilateral pulmonary consolidations which are essentially stable compared to yesterday's findings. Sputum Gram stain showed gram-negative bacteria and the culture came back positive for E. coli sensitive to Zosyn and the patient is currently on the appropriate antibiotics. He is eating well. No aspiration is been noted. The triple-lumen catheter site over the left subclavian is dry clean and intact. No significant leukocytosis. No altered mentation. He is weak. He is hard of hearing. No focal neurological deficit. No other significant events overnight. His ejection fraction is 45%. Objective - Vital Signs Vital signs: Vital Signs Temp 98.1 F 04/07/19 08:00 Pulse 86 04/07/19 09:00 Resp 20 04/07/19 09:00 BP 94/55 04/07/19 09:00 Pulse Ox 98 04/07/19 09:00 Intake & Output 04/06/19 04/07/19 04/07/19 18:59 06:59 18:59 Intake Total 837.774 360 65.643 Output Total 2500 0 0 Balance -1662.226 360 65.643 Weight 89 kg Intake: IV 340 360 40 D5 0.45 NACL 240 260 40 Piperacillin-Tazobactam 3 100 100 .375 gm In Sodium Chloride 0.9% 100 ml @ 25 mls/hr IVPB Q12HR [facility] Rx #:[id number] Intake, IV Titration 47.774 25.643 Amount Norepinephrine 32 mg In 47.774 25.643 Sodium Chloride 0.9% 218 ml @ 0.05 MCG/KG/MIN 2. 234 mls/hr IV .Q24H [facility] Rx#:[id number] Oral 450 Output: Urine 0 0 0 Hemodialysis 2500 Other: Voiding Method Urinal Urinal # Voids 0 0 0 # Bowel Movements 1 1 - Exam Gen. appearance, comfortable no acute distress. Her voice is hoarse and he has been quite muffled. The voice quality has improved currently on 4 L of oxygen by nasal cannula. Head exam was generally normal. There was no scleral icterus or corneal arcus. Mucous membranes were moist. Neck was supple and without jugular venous distension, thyromegaly, or carotid bruits. Carotids were easily palpable bilaterally. There was no adenopathy. Lungs sounds are diminished and there are crackles in the mid and lower lung brewster bilaterally more so on the right and in the left base. Cardiac exam revealed the PMI to be normally situated and sized. The rhythm was regular and no extrasystoles were noted during several minutes of auscultation. The first and second heart sounds were normal and physiologic splitting of the second heart sound was noted. There were no murmurs, rubs, clicks, or gallops. Abdominal exam revealed normal bowel sounds. The abdomen was soft, non-tender, and without masses, organomegaly, or appreciable enlargement of the abdominal aorta. Extremities there is +1 pitting edema in all 4 extremities mainly in the thighs and lower extremities bilaterally. The patient has an AV fistula in the right upper extremity. Neurologically is awake and alert and there is no focal neurological deficits. - Labs CBC & Chem 7: 04/07/19 08:13 04/07/19 08:13 Labs: Abnormal Lab Results - Last 24 Hours (Table) 04/06/19 04/06/19 04/07/19 Range/Units 11:34 16:46 08:13 RBC 3.70 L (4.30-5.90) m/uL Hgb 12.7 L (13.0-17.5) gm/dL MCV 110.2 H (80.0-100.0) fL Macrocytosis Marked A Potassium (3.5-5.1) mmol/L BUN (9-20) mg/dL Creatinine (0.66-1.25) mg/dL Glucose (74-99) mg/dL POC Glucose (mg/dL) 108 H 233 H (75-99) mg/dL 04/07/19 Range/Units 08:13 RBC (4.30-5.90) m/uL Hgb (13.0-17.5) gm/dL MCV (80.0-100.0) fL Macrocytosis Potassium 5.3 H (3.5-5.1) mmol/L BUN 44 H (9-20) mg/dL Creatinine 4.92 H (0.66-1.25) mg/dL Glucose 107 H (74-99) mg/dL POC Glucose (mg/dL) (75-99) mg/dL Microbiology - Last 24 Hours (Table) 04/02/19 08:01 Blood Culture - Preliminary Blood No Growth after 96 hours Assessment and Plan Plan: 1 multilobar pneumonia, consider aspiration especially with his underlying difficulties in swallowing and the patient remains on IV Zosyn and the chest x- ray from today is showing stable findings. He remains on 4 L of oxygen by nasal cannula. No aspiration for now. The sputum culture came back positive for Zosyn. No worsening in his pulmonary status. I that the patient has persistent secretions improved and his cough and end suctioning himself on a regular basis. 2 acute hypoxic respiratory failure. currently off BiPAP and is on 4 L of oxygen by nasal cannula 3 acute sepsis with secondary hypotension receiving a low-dose norepinephrine infusion at 0.05 units per KG per minute 4 dysphagia, under investigation passed swallow evaluation 5 hoarseness under investigation, CAT scan of the neck was negative. 6 End stage dialysis-dependent renal failure on dialysis 3 times a week last session of dialysis was yesterday. The patient had massive fluid overload and the patient is undergoing daily dialysis with ultrafiltration and his been a considerable negative fluid balance. Still has edematous scrotum and thighs and lower extremities bilaterally signs of ongoing fluid overload. 7 CHF with ejection fraction of 45% 8 COPD 9 history of atrial fibrillation 10 hypertension 11 hyperlipidemia 12 chronic hypotension currently the patient is back on pressors. Plan Continue dialysis today. Continue IV Zosyn. Titrate pressors. Aspiration pre cautions. Incentive spirometer. Supportive care. Nephrology to follow. Daily dialysis. Daily ultrafiltration. Negative fluid balance. Still there are some signs of fluid overload. We'll continue to follow.
[2019-04-07] MEDS: DEXTROSE 5%-0.45% NACL 1,000 ML IV SCH (11:43)
[2019-04-07] MEDS: NOREPINEPHRINE 32 MG in SODIUM CHLORIDE 0.9% 218 ML IV SCH (11:48)
--- NOTE | 2019-04-07 12:15 | PN ---
PROGRESS NOTE An 83-year-old gentleman with history of end-stage renal disease on hemodialysis and atrial fibrillation who was admitted to hospital with pulmonary edema. This morning he is being dialyzed. Looks better. Denies difficulty in breathing. Leg edema had improved. I reviewed his medications. PHYSICAL EXAMINATION: On exam, heart rate is 87 beats per minute, blood pressure is 82/58, respiratory rate is 18. Chest exam reveals good air entry bilaterally. Heart exam reveals first and second heart sounds. No gallop. Exam of extremities reveals mild edema. Peripheral pulses are felt. The patient is currently on Pravachol. ASSESSMENT: 1. End-stage renal disease on hemodialysis. 2. Persistent atrial fibrillation. 3. Hypotension. PLAN: An echocardiogram on him shows normal LV function. We will continue with the current supportive care. QUEENIE / ISABELLAN: [id number] /
[2019-04-07] MEDS: MULTIVITAMINS, THERA 1 EACH TAB PO SCH (12:34)
[2019-04-07] MEDS: FOLIC ACID 1 MG TAB PO SCH (12:34)
[2019-04-07] MEDS: THIAMINE 100 MG TAB PO SCH (12:34)
[2019-04-07] MEDS: ALLOPURINOL 100 MG TAB PO SCH (20:00)
[2019-04-07] MEDS: levETIRAcetam 250 MG TAB PO SCH (20:01)
[2019-04-07] MEDS: PRAVASTATIN SODIUM 20 MG TAB PO SCH (20:01)
--- NOTE | 2019-04-07 20:42 | PN ---
PROGRESS NOTE DATE OF SERVICE: 04/07/2019 This 83-year-old gentleman who was admitted with bilateral multifocal pneumonia is being closely monitored. Patient possibly has severe sepsis and septic shock also. The patient's blood pressure is low and supported by Levophed. The patient also received hemodialysis. Patient is also mildly confused. Most recent chest x-ray, which was reviewed by me personally, showed evidence of continued bilateral infiltrates. The cultures are showing E coli which has got some resistance pattern; not ESBL. Dr. Gloria is following the patient closely. Past medical history reviewed. REVIEW OF SYSTEMS: CARDIOVASCULAR SYSTEM: No angina, palpitations. RESPIRATORY SYSTEM: As mentioned earlier. GI: As mentioned earlier. : As mentioned earlier. NERVOUS SYSTEM: No numbness, weakness. CURRENT MEDICATIONS: Reviewed. They include: 1. Tylenol p.r.n. 2. Davenport 5 mg. 3. DuoNeb q.i.d. and p.r.n. 4. Zyloprim 100 mg at bedtime. 5. Alphagan eye drops. 6. Pulmicort 1 mg b.i.d. 7. Sinemet 25/100 one p.o. b.i.d. 8. Colace 100 mg p.o. daily. 9. Folic acid 1 mg p.o. daily. 10.Perforomist 20 mg b.i.d. 11.Neurontin. 12.Heparin 5000 units subcutaneously b.i.d. 13.Cortef 10 mg p.o. daily. 14.Keppra. 15.ProAmatine. 16.Narcan. 17.Norepinephrine. 18.Zosyn 3.375 IV q.6. 19.Pravachol. 20.Requip. 21.Vitamin B1. 22.Timoptic. PHYSICAL EXAMINATION: Patient is alert, oriented x2. Pulse 75, blood pressure 84/51, respiration 19, temperature normal, pulse ox 92% on 4 L. HEENT: Conjunctivae normal. NECK: No jugular venous distention. CARDIOVASCULAR SYSTEM: S1, S2 muffled. RESPIRATORY SYSTEM: Breath sounds diminished at the bases. Scattered rhonchi and crackles. ABDOMEN: Soft, non-tender. No mass palpable. LEGS: No edema. No swelling. NERVOUS SYSTEM: Higher functions as mentioned earlier. Moves all 4 limbs. No focal motor or sensory deficit. LYMPHATICS: No lymph node palpable in neck, axillae or groin. SKIN: No ulcer, rash, bleeding. JOINTS: No active deforming arthropathy. LAB STUDIES: WBC 9.6, hemoglobin 12.7. Sodium 139, potassium 5.3. ASSESSMENT: 1. Acute bilateral multifocal pneumonia with septic shock and hypotension, present on admission. 2. Acute hypoxic respiratory failure. 3. Congestive heart failure, acute exacerbation, with acute on chronic systolic dysfunction, ejection fraction 45% to 50%. 4. Chronic hypotension, on midodrine. 5. Hoarseness of voice. 6. End-stage renal disease, on hemodialysis Wednesday, Wednesday, Wednesday. 7. Swallowing difficulties. 8. Chronic atrial fibrillation, on anticoagulation with Eliquis. 9. Hypertension history. 10.Hyperlipidemia. 11.History of chronic obstructive pulmonary disease. 12.Parkinson's. 13.Gait dysfunction. 14.Previous history of smoking. 15.Hyponatremia. 16.Increased mean corpuscular volume. 17.Mild to moderate protein-calorie malnutrition. 18.Mild hyperkalemia. RECOMMENDATIONS AND DISCUSSION: I recommend to continue current medications, continue with the monitoring, symptomatic treatment. Otherwise at this time I would recommend to continue with the antibiotics, continue with hemodialysis. Will repeat the 8 a.m. cortisol and continue to monitor. Further recommendations to follow. MMODL / IJN: [id number] /
[2019-04-08 05:31] LABS: HCT 35.5 % (39.0-53.0); HGB 11.4 gm/dL (13.0-17.5); MCH 34.8 pg (25.0-35.0); MCHC 32.1 g/dL (31.0-37.0); Macrocytosis Marked; Mean Platelet Volume 7.2; Platelet Count 123 k/uL (150-450); RBC 3.27 m/uL (4.30-5.90); RDW 14.1 % (11.5-15.5); WBC 7.6 k/uL (3.8-10.6)
[2019-04-08 05:38] LABS: MCV 108.5 fL (80.0-100.0)
[2019-04-08 05:55] LABS: Calcium 9.3 mg/dL (8.4-10.2)
[2019-04-08] MEDS: DEXTROSE 5%-0.45% NACL 1,000 ML IV SCH (07:00)
[2019-04-08] MEDS: levOCARNitine (WITH SUGAR) 100 MG/ML BOTTLE PO SCH ×3 (07:00→17:07)
[2019-04-08] MEDS: MIDODRINE 5 MG TAB PO SCH ×3 (07:01→17:07)
[2019-04-08 07:24] LABS: Potassium 4.5 mmol/L (3.5-5.1)
[2019-04-08] MEDS: IPRATROPIUM-ALBUTEROL 3 ML NEB INHALATION SCH ×4 (07:58→20:58)
[2019-04-08] MEDS: FORMOTEROL FUMARATE 20 MCG/2 ML NEBU INHALATION SCH ×2 (07:58→20:58)
[2019-04-08] MEDS: BUDESONIDE 1 MG/2 ML NEBU INHALATION SCH ×2 (07:58→20:58)
[2019-04-08] MEDS: TIMOLOL 0.5% OPHTH DROPS 5 ML BTL BOTH EYES SCH (08:55)
[2019-04-08] MEDS: BRIMONIDINE TARTRATE 0.2% DROPS 5 ML BTL BOTH EYES SCH ×2 (08:55→20:28)
[2019-04-08] MEDS: HEPARIN SODIUM,PORCINE 5,000 UNIT/ML 1 ML VIAL SQ SCH ×2 (08:56→20:27)
[2019-04-08] MEDS: CARBIDOPA-LEVODOPA 25-100 MG 1 EACH TAB PO SCH ×2 (08:56→20:38)
[2019-04-08] MEDS: PIPERACILLIN-TAZOBACTAM 3.375 GM in SODIUM CHLORIDE 0.9% 100 ML IVPB SCH ×2 (08:56→20:27)
[2019-04-08] MEDS: GABAPENTIN 100 MG CAP PO SCH ×3 (08:56→22:48)
[2019-04-08] MEDS: DOCUSATE 100 MG CAP PO SCH (08:57)
[2019-04-08] MEDS: PANTOPRAZOLE SODIUM 40 MG GRANULE PKT PO SCH (08:58)
[2019-04-08] MEDS: HYDROCORTISONE 10 MG TAB PO SCH (08:59)
[2019-04-08] MEDS: rOPINIRole HCL 4 MG TABLET PO SCH ×3 (08:59→22:47)
--- NOTE | 2019-04-08 09:31 | P.PN ---
Subjective Patient is seen in follow-up for end-stage renal disease. He has received dialysis on a daily basis this week mostly for ultrafiltration. Currently on low-dose Levophed. Tolerated hemodialysis well yesterday with 3 L ultrafiltration. Oral intake is fair. Cough is improved. Still remains quite edematous. Vital signs are stable. Currently on vasopressors. General: The patient appeared well nourished and normally developed. HEENT: Head exam is unremarkable. Neck is without jugular venous distension. LUNGS: Lungs are clear to auscultation and percussion. Breath sounds decreased. HEART: Rate and Rhythm are regular. First and second heart sounds normal. No murmurs, rubs or gallops. ABDOMEN: Abdominal exam reveals normal bowel sounds. Distention noted. EXTREMITITES: 1+ edema. Objective - Vital Signs Vital signs: Vital Signs Temp 97.6 F 04/08/19 08:00 Pulse 78 04/08/19 08:28 Resp 14 04/08/19 08:00 BP 89/53 04/08/19 08:00 Pulse Ox 100 04/08/19 08:00 Intake & Output 04/07/19 04/08/19 04/08/19 18:59 06:59 18:59 Intake Total 259.270 342.706 40 Output Total 3000 7 0 Balance -2740.730 335.706 40 Weight 89 kg 87.9 kg Intake: IV 220 240 40 D5 0.45 NACL 220 240 40 Intake, IV Titration 39.270 102.706 Amount Norepinephrine 32 mg In 39.270 27.706 Sodium Chloride 0.9% 218 ml @ 0.05 MCG/KG/MIN 2. 234 mls/hr IV .Q24H [facility] Rx#:[id number] Piperacillin-Tazobactam 3 75 .375 gm In Sodium Chloride 0.9% 100 ml @ 25 mls/hr IVPB Q12HR [facility] Rx #:[id number] Output: Urine 0 5 0 Stool 2 Hemodialysis 3000 Other: Voiding Method Urinal Urinal Urinal # Voids 0 - Labs CBC & Chem 7: 04/08/19 04:57 04/08/19 04:57 Labs: Abnormal Lab Results - Last 24 Hours (Table) 04/08/19 04/08/19 Range/Units 04:57 04:57 RBC 3.27 L (4.30-5.90) m/uL Hgb 11.4 L (13.0-17.5) gm/dL Hct 35.5 L (39.0-53.0) % MCV 108.5 H (80.0-100.0) fL Plt Count 123 L (150-450) k/uL Macrocytosis Marked A BUN 36 H (9-20) mg/dL Creatinine 4.29 H (0.66-1.25) mg/dL Glucose 102 H (74-99) mg/dL Microbiology - Last 24 Hours (Table) 04/02/19 08:01 Blood Culture - Preliminary Blood No Growth after 120 hours Assessment and Plan Plan: Assessment: 1. End-stage renal disease maintained on hemodialysis on Wednesday y schedule. Patient is receiving dialysis on a daily basis this week mostly for ultrafiltration. 2. Chronic hypotension maintained on midodrine and Levophed. Also on Cortef. Patient did receive 1 L normal saline bolus in the ER. Cortisol level normal. 3. Acute on chronic systolic CHF with ejection fraction of 45-50%. 4. Volume overload. Improving daily ultrafiltration. 5. Pneumonia maintained on antibiotics. Sputum culture positive for E. coli. Plan: Maintain midodrine 10 mg 3 times daily. Currently seen while undergoing hemodialysis. Next treatment on Wednesday. Wean Levophed.
--- NOTE | 2019-04-08 11:24 | P.PN ---
Subjective Progress Note Date: 04/08/19 04/08/2019 the patient is having a fifth session of dialysis. The goal of ultrafiltration as 2.5 L. His pressure is still not stable. He is currently on norepinephrine infusion at 0.06 g per KG per minute. He seems to be requiring this pressors. He is on IV Zosyn. Chest x-ray showed bilateral pulmonary infiltrates/pneumonia which remains essentially stable. He is currently on 2 L of oxygen by nasal cannula. He was able to sit up on a chair for a few hours this morning prior to him going back to bed for dialysis. His sputum was positive for E. coli and the patient is on Zosyn. He is tolerating his diet. No nausea. No vomiting. No aspiration. He is a triple-lumen catheter in his left subclavian and his dialysis fistula is in the right upper extremity. Despite the [id number] dialysis for the past 5 days, the patient is still edematous in the does have some increased edema in his ankles and feet and thighs although improved. Ejection fraction is in the order of 45%. Objective - Vital Signs Vital signs: Vital Signs Temp 97.6 F 04/08/19 08:00 Pulse 74 04/08/19 10:00 Resp 15 04/08/19 10:00 BP 70/46 04/08/19 10:00 Pulse Ox 97 04/08/19 10:00 Intake & Output 04/07/19 04/08/19 04/08/19 18:59 06:59 18:59 Intake Total 259.270 342.706 85.249 Output Total 3000 7 0 Balance -2740.730 335.706 85.249 Weight 89 kg 87.9 kg Intake: IV 220 240 80 D5 0.45 NACL 220 240 80 Intake, IV Titration 39.270 102.706 5.249 Amount Norepinephrine 32 mg In 39.270 27.706 5.249 Sodium Chloride 0.9% 218 ml @ 0.05 MCG/KG/MIN 2. 234 mls/hr IV .Q24H [facility] Rx#:[id number] Piperacillin-Tazobactam 3 75 .375 gm In Sodium Chloride 0.9% 100 ml @ 25 mls/hr IVPB Q12HR [facility] Rx #:[id number] Output: Urine 0 5 0 Stool 2 Hemodialysis 3000 Other: Voiding Method Urinal Urinal Urinal # Voids 0 - Exam Gen. appearance, comfortable no acute distress. Her voice is hoarse and he has been quite muffled. The voice quality has improved currently on 2 L of oxygen by nasal cannula. Head exam was generally normal. There was no scleral icterus or corneal arcus. Mucous membranes were moist. Neck was supple and without jugular venous distension, thyromegaly, or carotid bruits. Carotids were easily palpable bilaterally. There was no adenopathy. Lungs sounds are diminished and there are crackles in the mid and lower lung brewster bilaterally more so on the right and in the left base. Cardiac exam revealed the PMI to be normally situated and sized. The rhythm was regular and no extrasystoles were noted during several minutes of auscultation. The first and second heart sounds were normal and physiologic splitting of the second heart sound was noted. There were no murmurs, rubs, clicks, or gallops. Abdominal exam revealed normal bowel sounds. The abdomen was soft, non-tender, and without masses, organomegaly, or appreciable enlargement of the abdominal aorta. Extremities there is +1 pitting edema in all 4 extremities mainly in the thighs and lower extremities bilaterally. The patient has an AV fistula in the right upper extremity. Neurologically is awake and alert and there is no focal neurological deficits. - Labs CBC & Chem 7: 04/08/19 04:57 04/08/19 04:57 Labs: Abnormal Lab Results - Last 24 Hours (Table) 04/08/19 04/08/19 Range/Units 04:57 04:57 RBC 3.27 L (4.30-5.90) m/uL Hgb 11.4 L (13.0-17.5) gm/dL Hct 35.5 L (39.0-53.0) % MCV 108.5 H (80.0-100.0) fL Plt Count 123 L (150-450) k/uL Macrocytosis Marked A BUN 36 H (9-20) mg/dL Creatinine 4.29 H (0.66-1.25) mg/dL Glucose 102 H (74-99) mg/dL Microbiology - Last 24 Hours (Table) 04/02/19 08:01 Blood Culture - Final Blood No Growth after 144 hours Assessment and Plan Plan: 1 multilobar pneumonia, stable, related to E. coli and the patient on IV Zosyn. Follow-up chest x-ray to be done tomorrow currently on 2 L of oxygen by nasal cannula. 2 acute hypoxic respiratory failure. currently off BiPAP and is on 2 L of oxygen by nasal cannula 3 acute sepsis with secondary hypotension receiving a low-dose norepinephrine infusion at 0.05 units per KG per minute 4 dysphagia, under investigation passed swallow evaluation 5 hoarseness under investigation, CAT scan of the neck was negative. 6 End stage dialysis-dependent renal failure on dialysis 3 times a week last session of dialysis was yesterday. The patient had massive fluid overload and the patient is undergoing daily dialysis with ultrafiltration and his been a considerable negative fluid balance. Still has edematous scrotum and thighs and lower extremities bilaterally signs of ongoing fluid overload. 7 CHF with ejection fraction of 45% 8 COPD 9 history of atrial fibrillation 10 hypertension 11 hyperlipidemia 12 chronic hypotension currently the patient is back on pressors. Plan Continue dialysis today. Continue IV Zosyn. Titrate pressors. Aspiration precautions. Incentive spirometer. Repeat chest x-ray in the morning. Complete dialysis today. Attempt to wean off pressors and allow lower systolic blood pressure probably systolic in the mid 80s and a mean of 60
--- NOTE | 2019-04-08 12:06 | PN ---
PROGRESS NOTE FOLLOW-UP NOTE: Andrew is an 83-year-old gentleman with history of atrial fibrillation who is admitted to hospital with congestive heart failure and renal failure. He is getting better with dialysis. At the time of my evaluation today, he is being dialyzed. He does not have any leg edema or shortness of breath. On exam, heart rate is 74 beats per minute. Blood pressure is between 70 and 88 systolic. Chest exam reveals good air entry bilaterally. Heart exam reveals first and second heart sounds. No gallop. Examination of extremities did not reveal any edema. Peripheral pulses are felt. Labs show that the hemoglobin is 11.4, platelet count is 123. Potassium is 4.5. BUN is 36 and creatinine is 4.29. ASSESSMENT AND PLAN: 1. End-stage renal disease, on hemodialysis. 2. Persistent atrial fibrillation. 3. Hypertension. PLAN: The patient will continue with current measures. He is on Pravachol. He is not a candidate for anticoagulation because of risk of fall. MMODL / IJN: [id number] /
[2019-04-08] MEDS: MULTIVITAMINS, THERA 1 EACH TAB PO SCH (12:36)
[2019-04-08] MEDS: THIAMINE 100 MG TAB PO SCH (12:36)
[2019-04-08] MEDS: FOLIC ACID 1 MG TAB PO SCH (12:41)
[2019-04-08] MEDS: NOREPINEPHRINE 32 MG in SODIUM CHLORIDE 0.9% 218 ML IV SCH (14:00)
--- NOTE | 2019-04-08 15:56 | US ---
EXAMINATION TYPE: US venous doppler duplex LE BI DATE OF EXAM: 04/08/2019 3:36 PM COMPARISON: NONE CLINICAL HISTORY: blood flow. SIDE PERFORMED: Bilateral TECHNIQUE: The lower extremity deep venous system is examined utilizing real time linear array sonog dayne with graded compression, doppler sonography and color-flow sonography. VESSELS IMAGED: External Iliac Vein (EIV) Common Femoral Vein Deep Femoral Vein Greater Saphenous Vein * Femoral Vein Popliteal Vein Small Saphenous Vein * Proximal Calf Veins (* superficial vessels) Right Leg: Negative for DVT Left Leg: Negative for DVT Grayscale, color doppler, spectral doppler imaging performed of the deep veins of the bilateral lower extremities. There is normal flow, compressibility, vascular waveforms. IMPRESSION: No ultrasound evidence for acute DVT in either lower extremity. Moderate to severe subcu taneous edema is noted bilaterally greater in the distal left lower extremity versus the opposite rig ht side on images saved.
[2019-04-08] MEDS: HYDROCORTISONE SUCCINATE 100 MG/2 ML VIAL IV SCH (18:37)
[2019-04-08] MEDS: levETIRAcetam 250 MG TAB PO SCH (20:27)
[2019-04-08] MEDS: FLUDROCORTISONE 0.1 MG TAB PO SCH (20:27)
[2019-04-08] MEDS: PRAVASTATIN SODIUM 20 MG TAB PO SCH (20:27)
[2019-04-08] MEDS: ALLOPURINOL 100 MG TAB PO SCH (20:38)
--- NOTE | 2019-04-08 22:23 | PN ---
PROGRESS NOTE DATE OF SERVICE: 04/08/2019. This 83-year-old gentleman admitted with acute bilateral multifocal pneumonia is being closely monitored. Patient still has hypotension, pressor support and the hemodialysis being continued. The patient also had bilateral leg swelling and ultrasound noted no evidence of DVTs. The patient also had a serum cortisol is only 13. PAST MEDICAL HISTORY: Reviewed. REVIEW OF SYSTEMS: Cardiovascular system: No angina or palpitations. RESPIRATORY: As mentioned earlier. GI: As mentioned earlier. GENITOURINARY: No dysuria. CURRENT MEDICATIONS ARE: Noted and include: 1. [place] 5 mg. 2. DuoNeb q.i.d. and p.r.n. 3. Zyloprim. 4. Alphagan. 5. Pulmicort. 6. Sinemet. 7. Colace. 8. Folic acid. 9. Neurontin. 10.Cortef. 11.ProAmatine. 12.Narcan. 13.Protonix. 14.Zosyn. 15.Requip. 16.Vitamin B1. 17.Doses reviewed. PHYSICAL EXAM: Patient is alert, oriented x2. Pulse is 81. Blood pressure 88/58, respirations 16, temperature normal. Pulse ox 100 percent on room air. HEENT: Conjunctivae normal. Neck: No JVD. CARDIOVASCULAR: S1, S2 muffled. RESPIRATORY SYSTEM: Breath sounds diminished at the bases. A few scattered rhonchi and crackles. ABDOMEN: Soft, nontender. No mass palpable. LEGS: Bilateral leg edema. Nervous system diffusely weak. LABS: WBC 7.2, hemoglobin 11.4. ASSESSMENT: 1. Acute bilateral multifocal pneumonia with septic shock and hypotension, present on admission. 2. Acute hypoxic respiratory failure, present on admission. 3. Congestive heart failure acute exacerbation acute on chronic systolic dysfunction EF 45 to 50%. 4. Chronic hypotension on midodrine. 5. 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 6. Hoarseness of voice. 7. End-stage renal disease on hemodialysis Wednesday, Wednesday, Wednesday. 8. Swallowing difficulties. 9. Chronic atrial fibrillation on anticoagulation with Eliquis. 10.Hypertension. 11.History of hyperlipidemia. 12.History of chronic obstructive pulmonary disease. 13.Parkinson's. 14.Gait dysfunction. 15.History of previous history of smoking. 16.Hyponatremia. 17.Increased MCV. 18.Mild to moderate protein calorie malnutrition. 19.Mild hyperkalemia. RECOMMENDATIONS AND DISCUSSION: Recommend to continue current management and continue the broad-spectrum IV antibiotics. I would recommend also IV high hydrocortisone and as well as fludrocortisone considering the possibility of doing cardiac cortical insufficiency. Otherwise, continue with hemodialysis. Monitor closely in ICU. Once the blood pressure is improved, Levophed could be titrated. Prognosis is extremely guarded because of multiple complex medical issues. Also recommend thigh-high Trung's also. Further recommendations to follow. Ultrasound of the legs are negative for DVT. No chest pain. No palpitations. No fever. MMODL / IJN: [id number] /
[2019-04-09] MEDS: HYDROCORTISONE SUCCINATE 100 MG/2 ML VIAL IV SCH ×3 (00:24→17:18)
[2019-04-09 04:52] LABS: Basophils % (A) 0 %; Eosinophils % (A) 0 %; HCT 34.7 % (39.0-53.0); HGB 10.9 gm/dL (13.0-17.5); Lymphocytes # (A) 0.4 k/uL (1.0-4.8); Lymphocytes % (A) 6 %; MCH 34.2 pg (25.0-35.0); MCHC 31.5 g/dL (31.0-37.0); Macrocytosis Marked; Mean Platelet Volume 8.4; Monocytes # (A) 0.1 k/uL (0-1.0); Monocytes % (A) 2 %; Neutrophils # (A) 6.1 k/uL (1.3-7.7); Neutrophils % (A) 91 %; Platelet Count 104 k/uL (150-450); RBC 3.19 m/uL (4.30-5.90); RDW 14.2 % (11.5-15.5); WBC 6.7 k/uL (3.8-10.6)
[2019-04-09 05:03] LABS: Calcium 9.3 mg/dL (8.4-10.2); Potassium 4.9 mmol/L (3.5-5.1)
[2019-04-09 05:20] LABS: MCV 108.7 fL (80.0-100.0)
[2019-04-09] MEDS: FORMOTEROL FUMARATE 20 MCG/2 ML NEBU INHALATION SCH ×2 (08:08→20:11)
[2019-04-09] MEDS: BUDESONIDE 1 MG/2 ML NEBU INHALATION SCH ×2 (08:08→20:11)
[2019-04-09] MEDS: IPRATROPIUM-ALBUTEROL 3 ML NEB INHALATION SCH ×4 (08:08→20:11)
[2019-04-09] MEDS: DEXTROSE 5%-0.45% NACL 1,000 ML IV SCH (09:06)
[2019-04-09] MEDS: levOCARNitine (WITH SUGAR) 100 MG/ML BOTTLE PO SCH ×3 (09:10→17:19)
[2019-04-09] MEDS: MIDODRINE 5 MG TAB PO SCH ×3 (09:11→17:18)
[2019-04-09] MEDS: DOCUSATE 100 MG CAP PO SCH (09:12)
[2019-04-09] MEDS: CARBIDOPA-LEVODOPA 25-100 MG 1 EACH TAB PO SCH ×2 (09:12→21:34)
[2019-04-09] MEDS: BRIMONIDINE TARTRATE 0.2% DROPS 5 ML BTL BOTH EYES SCH ×2 (09:12→21:36)
[2019-04-09] MEDS: PIPERACILLIN-TAZOBACTAM 3.375 GM in SODIUM CHLORIDE 0.9% 100 ML IVPB SCH ×2 (09:13→21:36)
[2019-04-09] MEDS: GABAPENTIN 100 MG CAP PO SCH ×3 (09:13→21:35)
[2019-04-09] MEDS: HEPARIN SODIUM,PORCINE 5,000 UNIT/ML 1 ML VIAL SQ SCH ×2 (09:13→21:35)
[2019-04-09] MEDS: rOPINIRole HCL 4 MG TABLET PO SCH ×3 (09:14→21:35)
[2019-04-09] MEDS: PANTOPRAZOLE SODIUM 40 MG GRANULE PKT PO SCH (09:14)
[2019-04-09] MEDS: FLUDROCORTISONE 0.1 MG TAB PO SCH (09:15)
[2019-04-09] MEDS: TIMOLOL 0.5% OPHTH DROPS 5 ML BTL BOTH EYES SCH (09:15)
--- NOTE | 2019-04-09 10:39 | P.PN ---
Subjective Progress Note Date: 04/09/19 On 04/09/2019 the patient is undergoing no dialysis today. He is calm and comfortable. He is on 3 g of norepinephrine infusion for blood pressure support. Should be weaned off today. He is on IV Zosyn. No respiratory difficulties. Cough and congestion is improved. He is able to speak of. This is. He is sitting up in his bed. Significant improvement in lower extremity edema today's evaluation. There has been updated on for the past 5 days with significant ultrafiltration. No fever. No chills. No altered mentation. Family is at the bedside. Nephrology decreased. Echo was done and ejection fraction of 45% consistent with mild systolic impairment of the left ventricular function. No fever. No chills. No altered mentation. Objective - Vital Signs Vital signs: Vital Signs Temp 97.9 F 04/09/19 08:00 Pulse 85 04/09/19 10:00 Resp 16 04/09/19 10:00 BP 93/60 04/09/19 10:00 Pulse Ox 94 L 04/09/19 10:00 Intake & Output 04/08/19 04/09/19 04/09/19 18:59 06:59 18:59 Intake Total 261.679 341.987 90.474 Output Total 2003 0 0 Balance -1741.321 341.987 90.474 Weight 88.5 kg Intake: IV 240 340 80 D5 0.45 NACL 240 240 80 Piperacillin-Tazobactam 3 100 .375 gm In Sodium Chloride 0.9% 100 ml @ 25 mls/hr IVPB Q12HR [facility] Rx #:[id number] Intake, IV Titration 21.679 1.987 10.474 Amount Norepinephrine 32 mg In 21.679 1.987 10.474 Sodium Chloride 0.9% 218 ml @ 0.05 MCG/KG/MIN 2. 234 mls/hr IV .Q24H [facility] Rx#:[id number] Output: Urine 0 0 0 Stool 3 Hemodialysis 1999 Other: Voiding Method Urinal Urinal # Voids 0 - Exam Gen. appearance, comfortable no acute distress. Her voice is hoarse and he has been quite muffled. The voice quality has improved currently on 2 L of oxygen by nasal cannula. Head exam was generally normal. There was no scleral icterus or corneal arcus. Mucous membranes were moist. Neck was supple and without jugular venous distension, thyromegaly, or carotid bruits. Carotids were easily palpable bilaterally. There was no adenopathy. Lungs sounds are diminished and there are crackles in the mid and lower lung brewster bilaterally more so on the right and in the left base. Cardiac exam revealed the PMI to be normally situated and sized. The rhythm was regular and no extrasystoles were noted during several minutes of auscultation. The first and second heart sounds were normal and physiologic splitting of the second heart sound was noted. There were no murmurs, rubs, clicks, or gallops. Abdominal exam revealed normal bowel sounds. The abdomen was soft, non-tender, and without masses, organomegaly, or appreciable enlargement of the abdominal aorta. Extremities there is +1 pitting edema in all 4 extremities mainly in the thighs and lower extremities bilaterally. The patient has an AV fistula in the right upper extremity. Neurologically is awake and alert and there is no focal neurological deficits. - Labs CBC & Chem 7: 04/09/19 04:11 04/09/19 04:08 Labs: Abnormal Lab Results - Last 24 Hours (Table) 04/09/19 04/09/19 Range/Units 04:08 04:11 RBC 3.19 L (4.30-5.90) m/uL Hgb 10.9 L (13.0-17.5) gm/dL Hct 34.7 L (39.0-53.0) % MCV 108.7 H (80.0-100.0) fL Plt Count 104 L (150-450) k/uL Lymphocytes # 0.4 L (1.0-4.8) k/uL Macrocytosis Marked A Sodium 135 L (137-145) mmol/L BUN 40 H (9-20) mg/dL Creatinine 4.56 H (0.66-1.25) mg/dL Glucose 172 H (74-99) mg/dL Microbiology - Last 24 Hours (Table) 04/02/19 08:01 Blood Culture - Final Blood No Growth after 144 hours Assessment and Plan Plan: 1 multilobar pneumonia, stable, related to E. coli and the patient on IV Zosyn. Follow-up chest x-ray to be done tomorrow currently on 2 L of oxygen by nasal ca nnula. 2 acute hypoxic respiratory failure. currently off BiPAP and is on 2 L of oxygen by nasal cannula 3 acute sepsis with secondary hypotension receiving a low-dose norepinephrine infusion 4 dysphagia, under investigation passed swallow evaluation 5 hoarseness under investigation, CAT scan of the neck was negative. 6 End stage dialysis-dependent renal failure on dialysis 3 times a week last session of dialysis was yesterday. The patient had massive fluid overload and the patient is undergoing daily dialysis with ultrafiltration and his been a considerable negative fluid balance. The patient had 5 days of dialysis [id number] and currently no dialysis planned for today. I discussed this with nephrology and will going to dialyze him again tomorrow. 7 CHF with ejection fraction of 45% 8 COPD 9 history of atrial fibrillation 10 hypertension 11 hyperlipidemia 12 chronic hypotension currently the patient is back on pressors. Plan Continue dialysis today. Continue IV Zosyn. Titrate pressors. Aspiration precautions. Incentive spirometer. Monitor blood pressure. Wean off pressors. Dialysis tomorrow. We'll follow.
--- NOTE | 2019-04-09 11:40 | P.PN ---
Subjective Patient is seen in follow-up for end-stage renal disease. He has received dialysis on a daily basis this week mostly for ultrafiltration. Currently on low-dose Levophed. Tolerated hemodialysis well yesterday with 2 L ultrafiltration. Oral intake is fair. Cough is improved. Edema has significantly improved since admission. Vital signs are stable. Currently on vasopressors. General: The patient appeared well nourished and normally developed. HEENT: Head exam is unremarkable. Neck is without jugular venous distension. LUNGS: Lungs are clear to auscultation and percussion. Breath sounds decreased. HEART: Rate and Rhythm are regular. First and second heart sounds normal. No murmurs, rubs or gallops. ABDOMEN: Abdominal exam reveals normal bowel sounds. Distention noted. EXTREMITITES: 1+ edema. Objective - Vital Signs Vital signs: Vital Signs Temp 97.9 F 04/09/19 08:00 Pulse 82 04/09/19 11:31 Resp 16 04/09/19 10:00 BP 93/60 04/09/19 10:00 Pulse Ox 94 L 04/09/19 10:00 Intake & Output 04/08/19 04/09/19 04/09/19 18:59 06:59 18:59 Intake Total 261.679 341.987 90.474 Output Total 2003 0 0 Balance -1741.321 341.987 90.474 Weight 88.5 kg Intake: IV 240 340 80 D5 0.45 NACL 240 240 80 Piperacillin-Tazobactam 3 100 .375 gm In Sodium Chloride 0.9% 100 ml @ 25 mls/hr IVPB Q12HR [facility] Rx #:[id number] Intake, IV Titration 21.679 1.987 10.474 Amount Norepinephrine 32 mg In 21.679 1.987 10.474 Sodium Chloride 0.9% 218 ml @ 0.05 MCG/KG/MIN 2. 234 mls/hr IV .Q24H [facility] Rx#:[id number] Output: Urine 0 0 0 Stool 3 Hemodialysis 1999 Other: Voiding Method Urinal Urinal # Voids 0 - Labs CBC & Chem 7: 04/09/19 04:11 04/09/19 04:08 Labs: Abnormal Lab Results - Last 24 Hours (Table) 04/09/19 04/09/19 Range/Units 04:08 04:11 RBC 3.19 L (4.30-5.90) m/uL Hgb 10.9 L (13.0-17.5) gm/dL Hct 34.7 L (39.0-53.0) % MCV 108.7 H (80.0-100.0) fL Plt Count 104 L (150-450) k/uL Lymphocytes # 0.4 L (1.0-4.8) k/uL Macrocytosis Marked A Sodium 135 L (137-145) mmol/L BUN 40 H (9-20) mg/dL Creatinine 4.56 H (0.66-1.25) mg/dL Glucose 172 H (74-99) mg/dL Microbiology - Last 24 Hours (Table) 04/02/19 08:01 Blood Culture - Final Blood No Growth after 144 hours Assessment and Plan Plan: Assessment: 1. End-stage renal disease maintained on hemodialysis on Wednesday schedule. Patient is receiving dialysis on a daily basis this week mostly for ultrafiltration. 2. Chronic hypotension maintained on midodrine and Levophed. Also on Cortef. Patient did receive 1 L normal saline bolus in the ER. Cortisol level normal. 3. Acute on chronic systolic CHF with ejection fraction of 45-50%. 4. Volume overload. Improving with daily ultrafiltration. 5. Pneumonia maintained on antibiotics. Sputum culture positive for E. coli. Plan: Maintain midodrine 10 mg 3 times daily. Hemodialysis tomorrow. Wean Levophed. Dose of steroids increased and Florinef added as well.
[2019-04-09] MEDS: FOLIC ACID 1 MG TAB PO SCH (12:54)
[2019-04-09] MEDS: MULTIVITAMINS, THERA 1 EACH TAB PO SCH (12:55)
[2019-04-09] MEDS: THIAMINE 100 MG TAB PO SCH (12:55)
[2019-04-09] MEDS: NOREPINEPHRINE 32 MG in SODIUM CHLORIDE 0.9% 218 ML IV SCH (13:04)
--- NOTE | 2019-04-09 18:20 | PN ---
PROGRESS NOTE Andrew is an 83-year-old gentleman with history of end-stage renal disease on hemodialysis. He was admitted to hospital with pulmonary edema. He is doing much better. Remains in atrial fibrillation with controlled ventricular rate. Not a candidate for anticoagulation. This morning he is feeling better. EXAM: Heart rate is 80 beats per minute. Blood pressure is 88/57, respiratory 16. There is no jugular venous distention. Chest exam reveals diminished air entry at the bases. Heart exam reveals first and second heart sounds, irregular rhythm. Exam of extremities reveals mild edema. He has an ejection systolic murmur in the aortic area. LAB: Show a hemoglobin of 10.9, BUN is 40, creatinine is 4.56. ASSESSMENT: 1. End-stage renal disease on hemodialysis. 2. Persistent atrial fibrillation. 3. Hypotension. PLAN: Patient will continue with current medications, continue with the hemodialysis, needs physical therapy. MMODL / IJN: [id number] /
[2019-04-09] MEDS: ALLOPURINOL 100 MG TAB PO SCH (21:33)
[2019-04-09] MEDS: PRAVASTATIN SODIUM 20 MG TAB PO SCH (21:34)
[2019-04-09] MEDS: levETIRAcetam 250 MG TAB PO SCH (21:34)
--- NOTE | 2019-04-09 22:51 | PN ---
PROGRESS NOTE DATE OF SERVICE: 04/09/2019 This 83-year-old gentleman who was admitted with acute bilateral multifocal pneumonia also had significant hypotension. Patient on Levophed, pressor support 0.3 small dose. No chest pain. No palpitations. No fever. PAST MEDICAL HISTORY: Reviewed. REVIEW OF SYSTEMS: Cardiovascular: No angina or palpitations. Respiration: As mentioned earlier. GI: As mentioned earlier. : No dysuria. Nervous system: Diffusely weak. CURRENT MEDICATIONS: Reviewed and include: 1. Tylenol p.r.n. 2. [place] 5 mg q.6h. 3. DuoNeb q.i.d. and p.r.n. 4. Zyloprim 100 mg daily. 5. Alphagan eye drops. 6. Pulmicort 1 mg b.i.d. 7. Sinemet 10/100 p.o. 8. Colace. 9. Florinef 0.2 daily. 10.Folic acid 1 mg p.o. daily. 11.Perforomist 20 mg b.i.d. 12.Neurontin 600 mg t.i.d. 14.Solu-Cortef 100 mg IV q.i.d. 15.Keppra. 16.ProAmatine. 17.Multivitamins. 18.Narcan. 19.Zosyn. 20.Prevacid. 21.Ocuvite. 22.Vitamin B1. 23.Timoptic. 24.Doses reviewed. PHYSICAL EXAM: Patient is alert, oriented x2. Pulse 78. Blood pressure 104/69, respiration 18, temperature normal, pulse ox 97% on room air. HEENT: Conjunctivae normal. NECK: No JVD. CARDIOVASCULAR: S1, S2 muffled. RESPIRATORY: Breath sounds diminished in the bases. A few scattered rhonchi and crackles. ABDOMEN: Soft, nontender. LEGS are no edema. No swelling. CENTRAL NERVOUS SYSTEM: Diffusely weak. LABS: WBC 6.6, hemoglobin 10.9. Sodium 135, creatinine is 4.56. ASSESSMENT: 1. Acute bilateral multifocal pneumonia with septic shock and hypotension, present on admission. 2. Acute hypoxic respiratory failure present on admission. 3. Congestive heart failure acute exacerbation with acute on chronic systolic dysfunction, ejection fraction 45% to 50%. 4. Chronic hypotension on midodrine. 5. 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 6. Hoarseness of voice. 7. History of renal disease on hemodialysis [place], Wednesday, Wednesday. 8. Swallowing difficulties. 9. Chronic atrial fibrillation on anticoagulation with Eliquis. 10.Hypertension. 11.History of hyperlipidemia. 12.History of chronic obstructive pulmonary disease. 13.Parkinson's. 14.Gait dysfunction. 15.History of previous history of smoking. 16.Hyponatremia. 17.Increased MCV. 18.Mild to moderate protein calorie malnutrition. 19.Mild hyperkalemia. 20.FULL CODE. RECOMMENDATIONS AND DISCUSSION: This 83-year-old gentleman who presented with multiple complex medical issues, we will monitor the patient closely, continue the current medications, management and symptomatic treatment. I recommend both glucocorticoid and corticoid supplements. Otherwise, once the blood pressure is improved, Levophed can be titrated off. Continue the hemodialysis. Prognosis guarded because of multiple complex medical issues. Further recommendations to follow. QUEENIE / ISABELLAN: [id number] / MTDD
[2019-04-10] MEDS: HYDROCORTISONE SUCCINATE 100 MG/2 ML VIAL IV SCH ×3 (00:44→15:22)
[2019-04-10 05:26] LABS: Basophils % (A) 0 %; Eosinophils % (A) 0 %; HCT 33.9 % (39.0-53.0); HGB 10.9 gm/dL (13.0-17.5); Lymphocytes # (A) 0.5 k/uL (1.0-4.8); Lymphocytes % (A) 5 %; MCH 34.7 pg (25.0-35.0); MCHC 32.2 g/dL (31.0-37.0); Macrocytosis Marked; Mean Platelet Volume 7.1; Monocytes # (A) 0.3 k/uL (0-1.0); Monocytes % (A) 2 %; Neutrophils # (A) 10.2 k/uL (1.3-7.7); Neutrophils % (A) 92 %; RBC 3.14 m/uL (4.30-5.90); RDW 14.1 % (11.5-15.5); WBC 11.1 k/uL (3.8-10.6)
[2019-04-10 05:29] LABS: MCV 107.8 fL (80.0-100.0); Platelet Count 163 k/uL (150-450)
[2019-04-10 06:17] LABS: Calcium 9.6 mg/dL (8.4-10.2); Potassium 4.9 mmol/L (3.5-5.1)
[2019-04-10] MEDS: MIDODRINE 5 MG TAB PO SCH ×3 (06:43→17:14)
[2019-04-10] MEDS: levOCARNitine (WITH SUGAR) 100 MG/ML BOTTLE PO SCH ×3 (06:43→17:17)
[2019-04-10] MEDS: BUDESONIDE 1 MG/2 ML NEBU INHALATION SCH ×2 (07:29→19:49)
[2019-04-10] MEDS: FORMOTEROL FUMARATE 20 MCG/2 ML NEBU INHALATION SCH ×2 (07:29→19:49)
[2019-04-10] MEDS: IPRATROPIUM-ALBUTEROL 3 ML NEB INHALATION SCH ×4 (07:30→19:49)
--- NOTE | 2019-04-10 09:23 | PN ---
PROGRESS NOTE Mr. Harper is an 83-year-old male with a known history of chronic persistent atrial fibrillation, history of chronic kidney disease on hemodialysis, who presented with symptoms of progressive weakness with low blood pressure, had possible pneumonia. He is feeling better overall. His breathing is better. He is denying any symptoms of chest pain. He is sitting up in a chair. He is off the norepinephrine. Hemodynamically, he has been stable. He continued to be in atrial fibrillation, not anticoagulated because of prior recurrent falls. He continues to be on Sinemet, Florinef 0 2 mg daily, midodrine 10 mg 3 times a day, Protonix, pravastatin 20 mg daily, thiamine. PHYSICAL EXAMINATION: Blood pressure 104/60 with a heart rate in the 80s. LUNGS: Clear. HEART: Irregular, regular, S1, S2. No S3 with systolic murmur at the base, no diastolic murmur. ABDOMEN: Soft, nontender, positive bowel sounds, no organomegaly. EXTREMITIES: +1 edema. LAB DATA: Revealed BUN and creatinine 53 and 5.58, potassium 4.9 hemoglobin of 10.9. IMPRESSION: 1. Hypotension, resolved, possible pneumonia. 2. Atrial fibrillation, chronic, not anticoagulated because of prior fall. 3. End-stage renal disease, on hemodialysis. RECOMMENDATION: Continue present medical therapy. Continue to increase physical activity and depending on his progress, further recommendation will be made. MMODL / IJN: [id number] /
[2019-04-10] MEDS: DOCUSATE 100 MG CAP PO SCH (09:54)
[2019-04-10] MEDS: FLUDROCORTISONE 0.1 MG TAB PO SCH ×2 (09:55→22:13)
[2019-04-10] MEDS: BRIMONIDINE TARTRATE 0.2% DROPS 5 ML BTL BOTH EYES SCH ×2 (09:55→22:12)
[2019-04-10] MEDS: GABAPENTIN 100 MG CAP PO SCH ×3 (09:55→22:11)
[2019-04-10] MEDS: PIPERACILLIN-TAZOBACTAM 3.375 GM in SODIUM CHLORIDE 0.9% 100 ML IVPB SCH ×2 (09:56→22:10)
[2019-04-10] MEDS: PANTOPRAZOLE SODIUM 40 MG GRANULE PKT PO SCH (09:56)
[2019-04-10] MEDS: rOPINIRole HCL 4 MG TABLET PO SCH ×3 (09:56→22:11)
[2019-04-10] MEDS: DEXTROSE 5%-0.45% NACL 1,000 ML IV SCH (09:56)
[2019-04-10] MEDS: TIMOLOL 0.5% OPHTH DROPS 5 ML BTL BOTH EYES SCH (09:56)
--- NOTE | 2019-04-10 11:15 | P.PN ---
Subjective Progress Note Date: 04/10/19 Principal diagnosis: acute multilobar pneumonia secondary to E. coli This is a 83-year-old white male patient who follows with Dr. Peoples for primary care services, with past medical history of end-stage renal disease on hemodialysis on Wednesday basis, chronic A. fib on Coumadin, COPD, hypertension, hyperlipidemia, recurrent pleural effusions, with past history of thoracentesis with negative pathology. Patient has a mildly impaired left ventricle systolic function with an EF of 45-50%, without evidence of significant valvular disease. Patient was dialyzed on Wednesday, on 02/27/2019, and apparently received an extra long hemodialysis treatment, and had a 2-1/2 L taken off, however over the past few days he has been experiencing increased shortness of breath, difficulty walking, and patient had obvious signs of fluid overload with increased lower extremity and truncal swelling, and apparently he put on over 9 pounds in the last 2 days. Patient was then directed to the emergency department for evaluation, and hemodialysis treatment was done on 02/28/2019 with removal of 2 L of fluid. Chest x-ray was completed, showing fluid overload with mild interstitial edema and pleural effusions left greater than the right. Labs showed white count of 5.6, hemoglobin of 9.9, sodium of 137, potassium 4.5, chloride is 94, CO2 32, BUN of 47, and creatinine of 3.70. Patient is being seen in the emergency department he is awaiting a bed on selective care unit, he will have another hemodialysis treatment today, he is feeling better today, he did experience some hypotension which has resolved. Patient is on midodrine at 10 mg 3 times a day and hydrocortisone at 10 mg twice daily On 04/09/2019 the patient is undergoing no dialysis today. He is calm and comfortable. He is on 3 g of norepinephrine infusion for blood pressure support. Should be weaned off today. He is on IV Zosyn. No respiratory difficulties. Cough and congestion is improved. He is able to speak of. This is. He is sitting up in his bed. Significant improvement in lower extremity edema today's evaluation. There has been updated on for the past 5 days with significant ultrafiltration. No fever. No chills. No altered mentation. Family is at the bedside. Nephrology decreased. Echo was done and ejection fraction of 45% consistent with mild systolic impairment of the left ventricular function. No fever. No chills. No altered mentation. Reevaluated today on 04/10/2019, patient is undergoing dialysis again today. He is very calm and comfortable, his norepinephrine was discontinued early this morning. And he remains on antibiotics, patient is relatively asymptomatic, able to sit up in bed, he has significant improvement in his overall status. He seems to be tolerating dialysis quite well today. So far.his WBC count is 11.1 hemoglobin is 10.9 units lites are normal renal profile showed a BUN of 53 creatinine 5.58.last chest x-ray from 04/07 showed chronic parenchymal changes small left greater than right pleural effusion and bibasilar atelectasis or infiltrates. No follow-up chest x-ray done since then. I will order one to be done today for follow-up. Objective - Vital Signs Vital signs: Vital Signs Temp 97.8 F 04/10/19 08:00 Pulse 68 04/10/19 09:30 Resp 15 04/10/19 09:30 BP 90/68 04/10/19 09:30 Pulse Ox 94 L 04/10/19 09:30 Intake & Output 04/09/19 04/10/19 04/10/19 18:59 06:59 18:59 Intake Total 456.750 333.968 180 Output Total 0 0 Balance 456.750 333.968 180 Weight 87.8 kg Intake: IV 240 315 180 D5 0.45 NACL 240 240 80 Piperacillin-Tazobactam 3 75 100 .375 gm In Sodium Chloride 0.9% 100 ml @ 25 mls/hr IVPB Q12HR [facility] Rx #:[id number] Intake, IV Titration 16.750 18.968 Amount Norepinephrine 32 mg In 16.750 18.968 Sodium Chloride 0.9% 218 ml @ 0.05 MCG/KG/MIN 2. 234 mls/hr IV .Q24H [facility] Rx#:[id number] Oral 200 Output: Urine 0 0 Other: # Bowel Movements 1 - Exam Physical Exam: Revealed a 83-year-old white male in no distress, extremely pleasant, on room air. Head: Atraumatic, normocephalic. HEENT:[Neck is supple.] [No neck masses.] [No thyromegaly.] [No JVD.]PERRLA, EOMI, no icterus. Chest: [symmetrical chest expansion, diminished breath sounds crackles at the bases especially at the right base.] Cardiac Exam: [irregular irregular rhythm.Normal S1 and S2, no S3 gallop, 2/6 systolic murmur thought the precordium. Abdomen: [Soft, nontender, no megaly, no rebound, no guarding, normal bowel sounds.] Extremities: [No clubbing,1+ bipedal edema, no cyanosis.] Neurological Exam: [No focal neurologic deficit.]alert and oriented 3, Psychiatric: Normal mood affect and normal mental status examination. Skin: No rashes. Lymphatics: No lymphadenopathy. - Labs CBC & Chem 7: 04/10/19 04:43 04/10/19 04:41 Labs: Abnormal Lab Results - Last 24 Hours (Table) 04/10/19 04/10/19 Range/Units 04:41 04:43 WBC 11.1 H (3.8-10.6) k/uL RBC 3.14 L (4.30-5.90) m/uL Hgb 10.9 L (13.0-17.5) gm/dL Hct 33.9 L (39.0-53.0) % MCV 107.8 H (80.0-100.0) fL Neutrophils # 10.2 H (1.3-7.7) k/uL Lymphocytes # 0.5 L (1.0-4.8) k/uL Macrocytosis Marked A Sodium 136 L (137-145) mmol/L BUN 53 H (9-20) mg/dL Creatinine 5.58 H (0.66-1.25) mg/dL Glucose 143 H (74-99) mg/dL Assessment and Plan Assessment: impression: 1 acute multilobar pneumonia secondary to E. coli 2 acute hypoxic respiratory failure secondary to above. 3 acute sepsis with secondary hypotension and septic shock secondary to E. coli pneumonia. 4 and stage renal disease, on hemodialysis. 5 chronic systolic congestive heart failure, ejection fraction 45% 6 history of underlying COPD 7 chronic atrial fibrillation 8 dyslipidemia. Recommendation: Continue hemodialysis. Patient will remain hopefully off norepinephrine, and if he remains off the norepinephrine may transfer the patient out of the ICU. Continue antibiotics/Zosyn Continue aspiration precautions. Continue incentive spirometry. Continue GI and DVT prophylaxis. Ambulate and incentive spirometry. If the patient remains off norepinephrine, may transfer to a monitor bed on selective. We will continue to follow. Time with Patient: Less than 30
[2019-04-10] MEDS: NOREPINEPHRINE 32 MG in SODIUM CHLORIDE 0.9% 218 ML IV SCH (11:26)
[2019-04-10] MEDS: THIAMINE 100 MG TAB PO SCH (13:18)
[2019-04-10] MEDS: FOLIC ACID 1 MG TAB PO SCH (13:18)
[2019-04-10] MEDS: MULTIVITAMINS, THERA 1 EACH TAB PO SCH (13:18)
[2019-04-10] MEDS: CARBIDOPA-LEVODOPA 25-100 MG 1 EACH TAB PO SCH ×2 (13:18→22:11)
--- NOTE | 2019-04-10 13:22 | P.PN ---
Subjective Patient is seen in follow-up for end-stage renal disease. He has received dialysis on a daily basis n last week mostly for ultrafiltration. Off Levophed. Tolerated hemodialysis well this morning with 2 L ultrafiltration. Oral intake is fair. Edema has significantly improved since admission. Vital signs are stable. Currently on vasopressors. General: The patient appeared well nourished and normally developed. HEENT: Head exam is unremarkable. Neck is without jugular venous distension. LUNGS: Lungs are clear to auscultation and percussion. Breath sounds decreased. HEART: Rate and Rhythm are regular. First and second heart sounds normal. No murmurs, rubs or gallops. ABDOMEN: Abdominal exam reveals normal bowel sounds. Distention noted. EXTREMITITES: 1+ edema. Objective - Vital Signs Vital signs: Vital Signs Temp 97.6 F 04/10/19 12:18 Pulse 76 04/10/19 12:18 Resp 16 04/10/19 12:18 BP 89/58 04/10/19 12:18 Pulse Ox 95 04/10/19 11:00 Intake & Output 04/09/19 04/10/19 04/10/19 18:59 06:59 18:59 Intake Total 456.750 333.968 200 Output Total 0 0 2000 Balance 456.750 333.968 -1800 Weight 87.8 kg Intake: IV 240 315 200 D5 0.45 NACL 240 240 100 Piperacillin-Tazobactam 3 75 100 .375 gm In Sodium Chloride 0.9% 100 ml @ 25 mls/hr IVPB Q12HR [facility] Rx #:[id number] Intake, IV Titration 16.750 18.968 Amount Norepinephrine 32 mg In 16.750 18.968 Sodium Chloride 0.9% 218 ml @ 0.05 MCG/KG/MIN 2. 234 mls/hr IV .Q24H [facility] Rx#:[id number] Oral 200 Output: Urine 0 0 Hemodialysis 2000 Other: # Bowel Movements 1 - Labs CBC & Chem 7: 04/10/19 04:43 04/10/19 04:41 Labs: Abnormal Lab Results - Last 24 Hours (Table) 04/10/19 04/10/19 Range/Units 04:41 04:43 WBC 11.1 H (3.8-10.6) k/uL RBC 3.14 L (4.30-5.90) m/uL Hgb 10.9 L (13.0-17.5) gm/dL Hct 33.9 L (39.0-53.0) % MCV 107.8 H (80.0-100.0) fL Neutrophils # 10.2 H (1.3-7.7) k/uL Lymphocytes # 0.5 L (1.0-4.8) k/uL Macrocytosis Marked A Sodium 136 L (137-145) mmol/L BUN 53 H (9-20) mg/dL Creatinine 5.58 H (0.66-1.25) mg/dL Glucose 143 H (74-99) mg/dL Assessment and Plan Plan: Assessment: 1. End-stage renal disease maintained on hemodialysis on Wednesday schedule. Patient received dialysis daily last week mostly for ultrafiltration. 2. Chronic hypotension maintained on midodrine, Florinef and Solu-Cortef. Off Levophed. 3. Acute on chronic systolic CHF with ejection fraction of 45-50%. 4. Volume overload. Improved. 5. Pneumonia maintained on antibiotics. Sputum culture positive for E. coli. Plan: Next hemodialysis on Wednesday.
[2019-04-10] MEDS: HEPARIN SODIUM,PORCINE 5,000 UNIT/ML 1 ML VIAL SQ SCH ×3 (13:47→22:12)
--- NOTE | 2019-04-10 16:08 | P.PN ---
Subjective Progress Note Date: 04/10/19 Principal diagnosis: This is an 83-year-old male was recently admitted for acute bilateral multifocal pneumonia and also found to have significant hypotension and is currently being closely monitored in the ICU. Patient received dialysis morning and is currently sitting up in the chair in no acute distress. Patient is currently off pressors and blood pressures have slightly improved and is currently on Midodrine 3 times daily and will continue at this time. Patient denies any acute overnight issues. Patient worked with physical therapy today and was up from the bed to the chair. Review of Systems: Cardiovascular: No reports of chest pain or palpitations Respiratory: No reports of shortness of breath or cough GI: No reports of nausea, vomiting, or diarrhea : No reports of dysuria or retention Nervous system: Diffuse weakness Active Medications Acetaminophen (Tylenol Tab) 500 mg PO Q6HR PRN PRN Reason: Fever and/ or Mild Pain Last Admin: 04/09/19 00:22 Dose: 500 mg Documented by: Hydrocodone Bitart/Acetaminophen (Paisley 5-325) 1 each PO Q6HR PRN PRN Reason: Pain Albuterol/Ipratropium (Duoneb 0.5 Mg-3 Mg/3 Ml Soln) 3 ml INHALATION RT-Q4H PRN PRN Reason: Shortness Of Breath Or Wheezing Albuterol/Ipratropium (Duoneb 0.5 Mg-3 Mg/3 Ml Soln) 3 ml INHALATION RT-QID [facility] Last Admin: 04/10/19 11:43 Dose: 3 ml Documented by: Allopurinol (Zyloprim) 100 mg PO HS [facility] Last Admin: 04/09/19 21:33 Dose: 100 mg Documented by: Brimonidine Tartrate (Alphagan P 0.2% Ophth Soln) 1 drops BOTH EYES BID [facility] Last Admin: 04/10/19 09:55 Dose: 1 drops Documented by: Budesonide (Pulmicort) 1 mg INHALATION RT-BID [facility] Last Admin: 04/10/19 07:29 Dose: 1 mg Documented by: Carbidopa/Levodopa (Sinemet 25-100) 1 each PO BID [facility] Last Admin: 04/10/19 13:18 Dose: 1 each Documented by: Docusate Sodium (Colace) 100 mg PO DAILY [facility] Last Admin: 04/10/19 09:54 Dose: Not Given Documented by: Fludrocortisone Acetate (Florinef) 0.2 mg PO BID [facility] Folic Acid (Folic Acid) 1 mg PO DAILY@1200 [facility] Last Admin: 04/10/19 13:18 Dose: 1 mg Documented by: Formoterol Fumarate (Perforomist) 20 mcg INHALATION RT-BID [facility] Last Admin: 04/10/19 07:29 Dose: 20 mcg Documented by: Gabapentin (Neurontin) 100 mg PO TID [facility] Last Admin: 04/10/19 15:21 Dose: 100 mg Documented by: Heparin Sodium (Porcine) (Heparin) 5,000 unit SQ Q12HR [facility] Last Admin: 04/10/19 13:48 Dose: 5,000 unit Documented by: Hydrocortisone Sodium Succinate (Solu-Cortef) 100 mg IV Q8HR [facility] Last Admin: 04/10/19 15:22 Dose: 100 mg Documented by: Dextrose/Sodium Chloride (Dextrose 5%-1/2ns Iv Soln) 1,000 mls @ 20 mls/hr IV .Q24H [facility] Last Admin: 04/10/19 09:56 Dose: 20 mls/hr Documented by: Norepinephrine Bitartrate 32 (mg/ Sodium Chloride) 250 mls @ 2.234 mls/hr IV .Q24H [facility]; Protocol Last Admin: 04/10/19 11:26 Dose: Not Given Documented by: Piperacillin Sod/Tazobactam (Sod 3.375 gm/ Sodium Chloride) 100 mls @ 25 mls/hr IVPB Q12HR [facility] Last Admin: 04/10/19 09:56 Dose: 25 mls/hr Documented by: Levetiracetam (Keppra) 250 mg PO HS [facility] Last Admin: 04/09/19 21:34 Dose: 250 mg Documented by: Levocarnitine (Carnitor Oral Soln) 330 mg PO TID-W/MEALS [facility] Last Admin: 04/10/19 13:20 Dose: 330 mg Documented by: Midodrine (Proamatine) 10 mg PO AC-TID [facility] Last Admin: 04/10/19 13:19 Dose: 10 mg Documented by: Multivitamins (Theragran) 1 each PO DAILY@1200 [facility] Last Admin: 04/10/19 13:18 Dose: 1 each Documented by: Naloxone HCl (Narcan) 0.2 mg IV Q2M PRN PRN Reason: Opioid Reversal Pantoprazole Sodium (Protonix) 40 mg PO DAILY [facility] Last Admin: 04/10/19 09:56 Dose: 40 mg Documented by: Pravastatin Sodium (Pravachol) 20 mg PO HS [facility] Last Admin: 04/09/19 21:34 Dose: 20 mg Documented by: Ropinirole HCl (Requip) 4 mg PO TID [facility] Last Admin: 04/10/19 15:22 Dose: 4 mg Documented by: Thiamine HCl (Vitamin B-1) 100 mg PO DAILY@1200 [facility] Last Admin: 04/10/19 13:18 Dose: 100 mg Documented by: Timolol Maleate (Timoptic) 1 drops BOTH EYES DAILY [facility] Last Admin: 04/10/19 09:56 Dose: 1 drops Documented by: Objective - Vital Signs Vital signs: Vital Signs Temp 97.6 F 04/10/19 12:18 Pulse 70 04/10/19 15:00 Resp 21 04/10/19 15:00 BP 85/50 04/10/19 15:00 Pulse Ox 99 04/10/19 15:00 Intake & Output 04/09/19 04/10/19 04/10/19 18:59 06:59 18:59 Intake Total 456.750 333.968 280 Output Total 0 0 2000 Balance 456.750 333.968 -1721 Weight 87.8 kg 87.8 kg Intake: IV 240 315 280 D5 0.45 NACL 240 240 180 Piperacillin-Tazobactam 3 75 100 .375 gm In Sodium Chloride 0.9% 100 ml @ 25 mls/hr IVPB Q12HR [facility] Rx #:[id number] Intake, IV Titration 16.750 18.968 Amount Norepinephrine 32 mg In 16.750 18.968 Sodium Chloride 0.9% 218 ml @ 0.05 MCG/KG/MIN 2. 234 mls/hr IV .Q24H [facility] Rx#:[id number] Oral 200 Output: Urine 0 0 Stool 1 Hemodialysis 2000 Other: # Bowel Movements 1 - Exam Gen: This is a 83-year-old male sitting up in the chair in no acute distress. Patient is hard of hearing. HEENT: Head is atraumatic, normocephalic. Pupils equal, round. Sclerae is anicteric. Conjunctiva is normal NECK: Supple. No JVD. No lymphadenopathy. No thyromegaly. LUNGS: Breath sounds diminished with few scattered rhonchi and crackles noted throughout. No intercostal retractions. HEART: Regular rate and rhythm. No murmur. ABDOMEN: Soft. Non-tender. Bowel sounds are present. No masses. EXTREMITIES: Mild pedal edema noted bilaterally. No calf tenderness. SCDs noted NEUROLOGICAL: Patient is awake, alert and oriented x2. - Labs CBC & Chem 7: 04/10/19 04:43 04/10/19 04:41 Labs: Abnormal Lab Results - Last 24 Hours (Table) 04/10/19 04/10/19 Range/Units 04:41 04:43 WBC 11.1 H (3.8-10.6) k/uL RBC 3.14 L (4.30-5.90) m/uL Hgb 10.9 L (13.0-17.5) gm/dL Hct 33.9 L (39.0-53.0) % MCV 107.8 H (80.0-100.0) fL Neutrophils # 10.2 H (1.3-7.7) k/uL Lymphocytes # 0.5 L (1.0-4.8) k/uL Macrocytosis Marked A Sodium 136 L (137-145) mmol/L BUN 53 H (9-20) mg/dL Creatinine 5.58 H (0.66-1.25) mg/dL Glucose 143 H (74-99) mg/dL Assessment and Plan Assessment: Acute bilateral multifocal pneumonia with septic shock and hypotension, present on admission Acute hypoxic respiratory failure present on admission Congestive heart failure acute exacerbation with acute on chronic systolic dysfunction, ejection fraction 45-50% Chronic hypotension on Midodrine 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 We will continue to monitor this patient closely. Florinef is being increased to 0.2 mg twice a day and will continue to monitor closely. Patient is currently off of levophed and being monitored in the ICU at this time. Patient will continue with IV antibiotics in the form of Zosyn at this time. Patient will continue with bronchodilators. Patient received dialysis today and will continue with his normal regimen of Wednesday/Wednesday/Wednesday. Multiple medical consultations are following. Due to multiple complex medical issues prognosis is guarded. Further recommendations to follow.
[2019-04-10] MEDS: PRAVASTATIN SODIUM 20 MG TAB PO SCH (22:12)
[2019-04-10] MEDS: ALLOPURINOL 100 MG TAB PO SCH (22:12)
[2019-04-10] MEDS: levETIRAcetam 250 MG TAB PO SCH (22:12)
[2019-04-11] MEDS: HYDROCORTISONE SUCCINATE 100 MG/2 ML VIAL IV SCH ×4 (00:49→23:41)
[2019-04-11 04:46] LABS: Basophils % (A) 0 %; Eosinophils % (A) 0 %; HCT 34.7 % (39.0-53.0); Hypochromasia Slight; Lymphocytes # (A) 0.4 k/uL (1.0-4.8); Lymphocytes % (A) 3 %; MCH 34.4 pg (25.0-35.0); MCHC 31.7 g/dL (31.0-37.0); Macrocytosis Marked; Mean Platelet Volume 7.2; Monocytes # (A) 0.3 k/uL (0-1.0); Monocytes % (A) 2 %; Neutrophils % (A) 94 %; Platelet Count 169 k/uL (150-450); WBC 11.7 k/uL (3.8-10.6)
[2019-04-11 05:04] LABS: Calcium 9.5 mg/dL (8.4-10.2); Potassium 4.4 mmol/L (3.5-5.1)
[2019-04-11 05:09] LABS: MCV 108.6 fL (80.0-100.0)
[2019-04-11] MEDS: BUDESONIDE 1 MG/2 ML NEBU INHALATION SCH ×2 (07:33→21:03)
[2019-04-11] MEDS: IPRATROPIUM-ALBUTEROL 3 ML NEB INHALATION SCH ×4 (07:33→21:03)
[2019-04-11] MEDS: FORMOTEROL FUMARATE 20 MCG/2 ML NEBU INHALATION SCH ×2 (07:33→21:03)
[2019-04-11] MEDS: levOCARNitine (WITH SUGAR) 100 MG/ML BOTTLE PO SCH ×3 (08:24→16:58)
[2019-04-11] MEDS: TIMOLOL 0.5% OPHTH DROPS 5 ML BTL BOTH EYES SCH (08:25)
[2019-04-11] MEDS: CARBIDOPA-LEVODOPA 25-100 MG 1 EACH TAB PO SCH ×2 (08:25→21:33)
[2019-04-11] MEDS: DOCUSATE 100 MG CAP PO SCH (08:25)
[2019-04-11] MEDS: BRIMONIDINE TARTRATE 0.2% DROPS 5 ML BTL BOTH EYES SCH ×2 (08:25→21:33)
[2019-04-11] MEDS: rOPINIRole HCL 4 MG TABLET PO SCH ×3 (08:26→21:31)
[2019-04-11] MEDS: PANTOPRAZOLE SODIUM 40 MG GRANULE PKT PO SCH (08:26)
[2019-04-11] MEDS: FLUDROCORTISONE 0.1 MG TAB PO SCH ×2 (08:29→21:32)
[2019-04-11] MEDS: MIDODRINE 5 MG TAB PO SCH ×3 (08:32→16:57)
[2019-04-11] MEDS: PIPERACILLIN-TAZOBACTAM 3.375 GM in SODIUM CHLORIDE 0.9% 100 ML IVPB SCH ×2 (08:33→21:39)
[2019-04-11] MEDS: GABAPENTIN 100 MG CAP PO SCH ×3 (08:33→21:31)
[2019-04-11] MEDS: DEXTROSE 5%-0.45% NACL 1,000 ML IV SCH (08:34)
[2019-04-11] MEDS: HEPARIN SODIUM,PORCINE 5,000 UNIT/ML 1 ML VIAL SQ SCH ×2 (08:35→21:33)
--- NOTE | 2019-04-11 08:48 | XR ---
EXAMINATION TYPE: XR chest 1V portable DATE OF EXAM: 04/11/2019 CLINICAL HISTORY: Difficulty breathing progress study. TECHNIQUE: Single AP portable upright view of the chest is obtained. COMPARISON: Chest x-ray from April 07, 2019 FINDINGS: Stable left subclavian central venous catheter. Background chronic parenchymal change with small left greater than right pleural effusions and associated bibasilar acute atelectasis and/or in filtrate are all redemonstrated. Persistent cardiomegaly with atherosclerotic and ectatic aortic knob . Multilevel spondylosis thoracic spine is redemonstrated with slight scoliotic curvature. IMPRESSION: Overall stable findings, chronic parenchymal change and cardiomegaly with small left gr eater right pleural effusions and associated bibasilar acute infiltrate and/or atelectasis are all re demonstrated.
--- NOTE | 2019-04-11 10:02 | PN ---
PROGRESS NOTE Mr. Harper is an an 83-year-old male with a history of chronic persistent atrial fibrillation, history of end-stage renal disease on hemodialysis, who presented with hypotension and evidence of pneumonia. He had to go back on norepinephrine last night for shock period of time. He is off the vent this morning. He is feeling better overall. He is breathing is better. He denies any chest pain. He denies any dizziness or palpitation. He continues to be in atrial fibrillation, not anticoagulated because of recurrent falls. There is no evidence off ventricular ectopic activity and his ventricular response has been controlled. He continues to be at this time on Sinemet, Florinef 0.2 mg twice a day, midodrine 10 mg 3 times a day, pravastatin 20 mg daily, albuterol, and Zosyn. PHYSICAL EXAMINATION: Blood pressure in the high 90s, low 100s with a heart rate in the 70s and the 80s, lungs no wheezes. Heart irregular regular, S1, S2. No S3 with systolic murmur. ABDOMEN: Soft, nontender. Positive bowel sounds. EXTREMITIES: No edema. LAB DATA: Revealed BUN and creatinine 47.8 and 4.85, potassium 4.4, hemoglobin of 11. IMPRESSION: 1. Hypotension, improved. 2. Multilobar pneumonia. 3. Chronic persistent atrial fibrillation, not anticoagulated because of falls. 4. End-stage renal disease, on hemodialysis. 5. History of hyperlipidemia. RECOMMENDATION: We will continue to increase his activity. He remains off the norepinephrine and hopeful that he will be able to be transferred to telemetry floor. Increase his activity gradually. MMODL / IJN: [id number] /
--- NOTE | 2019-04-11 11:02 | P.PN ---
Subjective Progress Note Date: 04/11/19 Principal diagnosis: acute multilobar pneumonia secondary to E. coli This is a 83-year-old white male patient who follows with Dr. Peoples for primary care services, with past medical history of end-stage renal disease on hemodialysis on Wednesday basis, chronic A. fib on Coumadin, COPD, hypertension, hyperlipidemia, recurrent pleural effusions, with past history of thoracentesis with negative pathology. Patient has a mildly impaired left ventricle systolic function with an EF of 45-50%, without evidence of significant valvular disease. Patient was dialyzed on Wednesday, on 02/27/2019, and apparently received an extra long hemodialysis treatment, and had a 2-1/2 L taken off, however over the past few days he has been experiencing increased shortness of breath, difficulty walking, and patient had obvious signs of fluid overload with increased lower extremity and truncal swelling, and apparently he put on over 9 pounds in the last 2 days. Patient was then directed to the emergency department for evaluation, and hemodialysis treatment was done on 02/28/2019 with removal of 2 L of fluid. Chest x-ray was completed, showing fluid overload with mild interstitial edema and pleural effusions left greater than the right. Labs showed white count of 5.6, hemoglobin of 9.9, sodium of 137, potassium 4.5, chloride is 94, CO2 32, BUN of 47, and creatinine of 3.70. Patient is being seen in the emergency department he is awaiting a bed on selective care unit, he will have another hemodialysis treatment today, he is feeling better today, he did experience some hypotension which has resolved. Patient is on midodrine at 10 mg 3 times a day and hydrocortisone at 10 mg twice daily On 04/09/2019 the patient is undergoing no dialysis today. He is calm and comfortable. He is on 3 g of norepinephrine infusion for blood pressure support. Should be weaned off today. He is on IV Zosyn. No respiratory difficulties. Cough and congestion is improved. He is able to speak of. This is. He is sitting up in his bed. Significant improvement in lower extremity edema today's evaluation. There has been updated on for the past 5 days with significant ultrafiltration. No fever. No chills. No altered mentation. Family is at the bedside. Nephrology decreased. Echo was done and ejection fraction of 45% consistent with mild systolic impairment of the left ventricular function. No fever. No chills. No altered mentation. Reevaluated today on 04/10/2019, patient is undergoing dialysis again today. He is very calm and comfortable, his norepinephrine was discontinued early this morning. And he remains on antibiotics, patient is relatively asymptomatic, able to sit up in bed, he has significant improvement in his overall status. He seems to be tolerating dialysis quite well today. So far.his WBC count is 11.1 hemoglobin is 10.9 units lites are normal renal profile showed a BUN of 53 creatinine 5.58.last chest x-ray from 04/07 showed chronic parenchymal changes small left greater than right pleural effusion and bibasilar atelectasis or infiltrates. No follow-up chest x-ray done since then. I will order one to be done today for follow-up. Reevaluated today on 04/11/2019, patient is doing better, he is off norepinephrine at present, his mental status is significantly improved, patient continues to have intermittent drops in his blood pressure down to the 70s systolic, however clinically he feels fine, and he is maximized on medications for blood pressure last night he required norepinephrine again for about 2 hours. Remains on hydrocortisone 50 mg IV push every 8, remains on Florinef, remains on midodrine. Patient will remain in the ICU mostly because of his intermittent drop in blood pressure. Overall the patient has made a significant improvement since admission, but I am a bit reluctant to move him out of the ICU because the drops in blood pressure intermittently. WBC count today is 11.7 hemoglobin is 11 electrolytes are normal BUN is 47 creatinine 4.85. His last cortisol level was 13. Chest x-ray today showed chronic parenchymal changes cardiomegaly and small left pleural effusion. Objective - Vital Signs Vital signs: Vital Signs Temp 97.1 F L 04/11/19 08:00 Pulse 68 04/11/19 10:00 Resp 27 H 04/11/19 10:00 BP 73/45 04/11/19 10:00 Pulse Ox 94 L 04/11/19 10:00 Intake & Output 04/10/19 04/11/19 04/11/19 18:59 06:59 18:59 Intake Total 340 266.596 140 Output Total 2001 0 0 Balance -1661 266.596 140 Weight 87.8 kg 85.2 kg Intake: IV 340 260 140 D5 0.45 NACL 240 260 40 Piperacillin-Tazobactam 3 100 100 .375 gm In Sodium Chloride 0.9% 100 ml @ 25 mls/hr IVPB Q12HR [facility] Rx #:[id number] Intake, IV Titration 6.596 0 Amount Norepinephrine 32 mg In 6.596 0 Sodium Chloride 0.9% 218 ml @ 0.05 MCG/KG/MIN 2. 234 mls/hr IV .Q24H [facility] Rx#:[id number] Output: Urine 0 0 Stool 1 Hemodialysis 2000 Other: Voiding Method Urinal # Voids 0 # Bowel Movements 1 1 - Exam Physical Exam: Revealed a 83-year-old white male in no distress, extremely pleasant, 1 L nasal cannula Head: Atraumatic, normocephalic. HEENT:[Neck is supple.] [No neck masses.] [No thyromegaly.] [No JVD.]PERRLA, EOMI, no icterus. Chest: [symmetrical chest expansion, diminished breath sounds crackles at the bases especially at the right base.] Cardiac Exam: [irregular irregular rhythm.Normal S1 and S2, no S3 gallop, 2/6 systolic murmur thought the precordium. Abdomen: [Soft, nontender, no megaly, no rebound, no guarding, normal bowel sounds.] Extremities: [No clubbing,1+ bipedal edema, no cyanosis.] Neurological Exam: [No focal neurologic deficit.]alert and oriented 3, Psychiatric: Normal mood affect and normal mental status examination. Skin: No rashes. Lymphatics: No lymphadenopathy. - Labs CBC & Chem 7: 04/11/19 04:10 04/11/19 04:10 Labs: Abnormal Lab Results - Last 24 Hours (Table) 04/11/19 04/11/19 Range/Units 04:10 04:10 WBC 11.7 H (3.8-10.6) k/uL RBC 3.20 L (4.30-5.90) m/uL Hgb 11.0 L (13.0-17.5) gm/dL Hct 34.7 L (39.0-53.0) % MCV 108.6 H (80.0-100.0) fL Neutrophils # 11.0 H (1.3-7.7) k/uL Lymphocytes # 0.4 L (1.0-4.8) k/uL Macrocytosis Marked A Sodium 136 L (137-145) mmol/L BUN 47 H (9-20) mg/dL Creatinine 4.85 H (0.66-1.25) mg/dL Glucose 148 H (74-99) mg/dL Assessment and Plan Assessment: impression: 1 acute multilobar pneumonia secondary to E. coli 2 acute hypoxic respiratory failure secondary to above. And secondary to fluid overload secondary to renal failure. 3 acute sepsis with secondary hypotension and septic shock secondary to E. coli pneumonia. 4 and stage renal disease, on hemodialysis. 5 chronic systolic congestive heart failure, ejection fraction 45% 6 history of underlying COPD 7 chronic atrial fibrillation 8 dyslipidemia. Recommendation: Continue hemodialysis. Continue to monitor in the ICU as long as he is requiring norepinephrine intermittently. Continue antibiotics/Zosyn Continue aspiration precautions. Continue incentive spirometry. Continue GI and DVT prophylaxis. Ambulate and incentive spirometry. Cut down hydrocortisone to 50 mg IV push every 8 hours. Continue midodrine and Florinef and hydrocortisone. We'll continue to follow in the ICU Time with Patient: Less than 30
[2019-04-11] MEDS: FOLIC ACID 1 MG TAB PO SCH (11:57)
[2019-04-11] MEDS: THIAMINE 100 MG TAB PO SCH (11:57)
[2019-04-11] MEDS: MULTIVITAMINS, THERA 1 EACH TAB PO SCH (11:57)
[2019-04-11] MEDS: NOREPINEPHRINE 32 MG in SODIUM CHLORIDE 0.9% 218 ML IV SCH (13:00)
--- NOTE | 2019-04-11 14:36 | P.PN ---
Subjective Progress Note Date: 04/11/19 Principal diagnosis: This is an 83-year-old male was recently admitted for acute bilateral multifocal pneumonia and also found to have significant hypotension and is currently being closely monitored in the ICU. Patient received dialysis morning and is currently sitting up in the chair in no acute distress. Patient is currently off pressors and blood pressures have slightly improved and is currently on Midodrine 3 times daily and will continue at this time. Patient denies any acute overnight issues. Patient worked with physical therapy today and was up from the bed to the chair. 04/11/2019 Patient is sitting up in bed sleeping but easily arousable in no acute distress. Per nursing staff patient had to be on approximately 2 hours of levophed overnight for low blood pressures of 70s systolic. Patient is currently still in the ICU and being closely monitored. Per nursing staff the patient's blood pressure seems to drop when he is sleeping and his sleep cycles have been off for the last few days as he is sleeping more during the day and up at night. Currently patient denies any chest pain, shortness of breath, or palpitations. Patient has been afebrile. Patient denies any nausea or vomiting and is tolerating diet. Multiple medical consultations are following. Patient will continue dialysis Wednesday/Wednesday/Wednesday and is due for dialysis in the [facility]. Objective - Vital Signs Vital signs: Vital Signs Temp 97.0 F L 04/11/19 12:00 Pulse 76 04/11/19 14:00 Resp 19 04/11/19 14:00 BP 81/56 04/11/19 14:00 Pulse Ox 92 L 04/11/19 14:00 Intake & Output 04/10/19 04/11/19 04/11/19 18:59 06:59 18:59 Intake Total 340 266.596 342.895 Output Total 2001 0 0 Balance -1661 266.596 342.895 Weight 87.8 kg 85.2 kg Intake: IV 340 260 240 D5 0.45 NACL 240 260 140 Piperacillin-Tazobactam 3 100 100 .375 gm In Sodium Chloride 0.9% 100 ml @ 25 mls/hr IVPB Q12HR [facility] Rx #:[id number] Intake, IV Titration 6.596 2.895 Amount Norepinephrine 32 mg In 6.596 2.895 Sodium Chloride 0.9% 218 ml @ 0.05 MCG/KG/MIN 2. 234 mls/hr IV .Q24H [facility] Rx#:[id number] Oral 100 Output: Urine 0 0 Stool 1 Hemodialysis 1999 Other: Voiding Method Urinal # Voids 0 # Bowel Movements 1 1 1 - Exam Gen: This is a 83-year-old male sitting up in bed sleeping but easily arousable, in no acute distress. Patient is hard of hearing. Temp is 97.1F, pulse is 78, respirations are 14, blood pressure is 100/66, oxygen saturation is 96% on 1 L via nasal cannula HEENT: Head is atraumatic, normocephalic. Pupils equal, round. Sclerae is anicteric. Conjunctiva is normal NECK: Supple. No JVD. No lymphadenopathy. No thyromegaly. LUNGS: Breath sounds diminished with few scattered rhonchi and crackles noted throughout. No intercostal retractions. HEART: Regular rate and rhythm. No murmur. ABDOMEN: Soft. Non-tender. Bowel sounds are present. No masses. EXTREMITIES: Mild pedal edema noted bilaterally. No calf tenderness. SCDs noted NEUROLOGICAL: Patient is awake, alert and oriented x2. - Labs CBC & Chem 7: 04/11/19 04:10 04/11/19 04:10 Labs: Abnormal Lab Results - Last 24 Hours (Table) 04/11/19 04/11/19 Range/Units 04:10 04:10 WBC 11.7 H (3.8-10.6) k/uL RBC 3.20 L (4.30-5.90) m/uL Hgb 11.0 L (13.0-17.5) gm/dL Hct 34.7 L (39.0-53.0) % MCV 108.6 H (80.0-100.0) fL Neutrophils # 11.0 H (1.3-7.7) k/uL Lymphocytes # 0.4 L (1.0-4.8) k/uL Macrocytosis Marked A Sodium 136 L (137-145) mmol/L BUN 47 H (9-20) mg/dL Creatinine 4.85 H (0.66-1.25) mg/dL Glucose 148 H (74-99) mg/dL Assessment and Plan Assessment: Acute bilateral multifocal pneumonia with septic shock and hypotension, present on admission Acute hypoxic respiratory failure present on admission Congestive heart failure acute exacerbation with acute on chronic systolic dysfunction, ejection fraction 45-50% Chronic hypotension on Midodrine 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 We will continue to monitor this patient closely. Multiple medical consultations following. Patient is currently still on the ICU for close monitoring as he continues to have low blood pressure and requiring levophed intermittently. Patient will continue with IV antibiotics in the form of Zosyn at this time. Patient will continue with bronchodilators. Patient will continue dialysis dialysis with his normal regimen of Wednesday/Wednesday/Wednesday. Multiple medical consultations are following. Due to multiple complex medical issues prognosis is guarded. Further recommendations to follow.
--- NOTE | 2019-04-11 19:47 | PN ---
PROGRESS NOTE Patient is seen for followup for end-stage renal disease and volume overload. He has had daily treatments for volume overload, currently doing much better. He was sitting up on a bedside chair and having lunch when he was seen this morning. Blood pressure was 112/70, heart rate 71 per minute. Patient is afebrile. EXAMINATION OF THE HEART: S1 and S2. EXAMINATION OF LUNGS: Decreased breath sounds at bases. ABDOMEN: Soft, non-tender. Examination of lower extremities shows chronic skin changes and trace edema bilaterally. TOUR COORDINATOR exam is grossly intact. Labs show hemoglobin of 11.0, sodium 136, potassium 4.4. ASSESSMENT: 1. End-stage renal disease, normally on a Wednesday, Wednesday, Wednesday schedule. Patient will be dialyzed tomorrow. 2. Volume overload, currently improved. 3. Chronic hypotension, maintained on midodrine, Florinef, Solu-Cortef. 4. Acute on top of chronic congestive heart failure, systolic. 5. Cardiomyopathy; ejection fraction 45% to 50%. 6. Pneumonia with sputum culture positive for Escherichia coli, maintained on antibiotics. PLAN: Hemodialysis in a.m. Continue to encourage increased oral intake. MMODL / IJN: [id number] /
[2019-04-11] MEDS: PRAVASTATIN SODIUM 20 MG TAB PO SCH (21:31)
[2019-04-11] MEDS: levETIRAcetam 250 MG TAB PO SCH (21:32)
[2019-04-11] MEDS: ALLOPURINOL 100 MG TAB PO SCH (21:33)
[2019-04-12 04:47] LABS: HCT 32.4 % (39.0-53.0); HGB 10.7 gm/dL (13.0-17.5); MCH 35.8 pg (25.0-35.0); MCHC 33.1 g/dL (31.0-37.0); Macrocytosis Marked; Mean Platelet Volume 8.1; Platelet Count 152 k/uL (150-450); RDW 14.3 % (11.5-15.5); WBC 11.7 k/uL (3.8-10.6)
[2019-04-12 05:00] LABS: Calcium 9.2 mg/dL (8.4-10.2); Potassium 4.7 mmol/L (3.5-5.1)
[2019-04-12] MEDS: levOCARNitine (WITH SUGAR) 100 MG/ML BOTTLE PO SCH ×3 (06:58→16:52)
[2019-04-12] MEDS: MIDODRINE 5 MG TAB PO SCH ×3 (06:59→16:52)
[2019-04-12] MEDS: FORMOTEROL FUMARATE 20 MCG/2 ML NEBU INHALATION SCH ×2 (07:41→20:09)
[2019-04-12] MEDS: IPRATROPIUM-ALBUTEROL 3 ML NEB INHALATION SCH ×4 (07:41→20:09)
[2019-04-12] MEDS: BUDESONIDE 1 MG/2 ML NEBU INHALATION SCH ×2 (07:41→20:09)
--- NOTE | 2019-04-12 07:54 | PN ---
PROGRESS NOTE Mr. Harper is an 83-year-old male with history of chronic persistent atrial fibrillation, end-stage renal disease, on hemodialysis, not anticoagulated because of recurrent falls. He is feeling reasonably well today, his breathing is stable. He is off the norepinephrine. He is scheduled to undergo dialysis today. He is denying any symptoms of chest discomfort. He denies any dizziness, palpitation. He denies any nausea. His ventricular response is under reasonable control. He continues to be at this time on Sinemet, Florinef 0.2 mg twice a day, midodrine 10 mg 3 times a day. He received Solu-Cortef, pravastatin 20 mg daily, thiamine. PHYSICAL EXAMINATION: Blood pressure running in the high 90s with a heart rate in the 70s. LUNGS: No wheezes. HEART: Irregular, regular, S1, S2. No S3. No rub. ABDOMEN: Soft, nontender. Positive bowel sounds. EXTREMITIES: +1 edema. LAB DATA: Revealed BUN and creatinine 62 and 5.7, potassium 4.7, hemoglobin of 10.7. IMPRESSION: 1. Pneumonia with episode of hypotension. The patient had a baseline hypotension, but has probably been exacerbated by the infectious process. 2. Respiratory failure, improved. 3. End-stage renal disease, on hemodialysis. 4. Chronic persistent atrial fibrillation. 5. Hyperlipidemia. RECOMMENDATION: From the cardiac standpoint, will continue present therapy. He has been off the norepinephrine now for over 24 hours. He is scheduled to undergo the dialysis today. The dose of his Solu-Cortef will be decreased. His activity will be increased gradually. From the cardiac standpoint, he is stable. Will see him on as-needed basis. Please feel free to call us for any question. MMODL / IJN: [id number] /
[2019-04-12] MEDS: BRIMONIDINE TARTRATE 0.2% DROPS 5 ML BTL BOTH EYES SCH ×2 (08:29→21:31)
[2019-04-12] MEDS: HYDROCORTISONE SUCCINATE 100 MG/2 ML VIAL IV SCH ×2 (08:29→15:58)
[2019-04-12] MEDS: CARBIDOPA-LEVODOPA 25-100 MG 1 EACH TAB PO SCH ×2 (08:30→21:30)
[2019-04-12] MEDS: FLUDROCORTISONE 0.1 MG TAB PO SCH ×2 (08:30→21:30)
[2019-04-12] MEDS: DOCUSATE 100 MG CAP PO SCH (08:30)
[2019-04-12] MEDS: GABAPENTIN 100 MG CAP PO SCH ×3 (08:31→21:30)
[2019-04-12] MEDS: PIPERACILLIN-TAZOBACTAM 3.375 GM in SODIUM CHLORIDE 0.9% 100 ML IVPB SCH ×2 (08:31→21:31)
[2019-04-12] MEDS: HEPARIN SODIUM,PORCINE 5,000 UNIT/ML 1 ML VIAL SQ SCH ×2 (08:31→21:31)
[2019-04-12] MEDS: TIMOLOL 0.5% OPHTH DROPS 5 ML BTL BOTH EYES SCH (08:31)
[2019-04-12] MEDS: PANTOPRAZOLE SODIUM 40 MG GRANULE PKT PO SCH (08:31)
[2019-04-12] MEDS: rOPINIRole HCL 4 MG TABLET PO SCH ×3 (08:31→21:30)
[2019-04-12] MEDS: NOREPINEPHRINE 32 MG in SODIUM CHLORIDE 0.9% 218 ML IV SCH (09:30)
--- NOTE | 2019-04-12 11:28 | P.PN ---
Subjective Progress Note Date: 04/12/19 Principal diagnosis: acute multilobar pneumonia secondary to E. coli This is a 83-year-old white male patient who follows with Dr. Peoples for primary care services, with past medical history of end-stage renal disease on hemodialysis on Wednesday basis, chronic A. fib on Coumadin, COPD, hypertension, hyperlipidemia, recurrent pleural effusions, with past history of thoracentesis with negative pathology. Patient has a mildly impaired left ventricle systolic function with an EF of 45-50%, without evidence of significant valvular disease. Patient was dialyzed on Wednesday, on 02/27/2019, and apparently received an extra long hemodialysis treatment, and had a 2-1/2 L taken off, however over the past few days he has been experiencing increased shortness of breath, difficulty walking, and patient had obvious signs of fluid overload with increased lower extremity and truncal swelling, and apparently he put on over 9 pounds in the last 2 days. Patient was then directed to the emergency department for evaluation, and hemodialysis treatment was done on 02/28/2019 with removal of 2 L of fluid. Chest x-ray was completed, showing fluid overload with mild interstitial edema and pleural effusions left greater than the right. Labs showed white count of 5.6, hemoglobin of 9.9, sodium of 137, potassium 4.5, chloride is 94, CO2 32, BUN of 47, and creatinine of 3.70. Patient is being seen in the emergency department he is awaiting a bed on selective care unit, he will have another hemodialysis treatment today, he is feeling better today, he did experience some hypotension which has resolved. Patient is on midodrine at 10 mg 3 times a day and hydrocortisone at 10 mg twice daily On 04/09/2019 the patient is undergoing no dialysis today. He is calm and comfortable. He is on 3 g of norepinephrine infusion for blood pressure support. Should be weaned off today. He is on IV Zosyn. No respiratory difficulties. Cough and congestion is improved. He is able to speak of. This is. He is sitting up in his bed. Significant improvement in lower extremity edema today's evaluation. There has been updated on for the past 5 days with significant ultrafiltration. No fever. No chills. No altered mentation. Family is at the bedside. Nephrology decreased. Echo was done and ejection fraction of 45% consistent with mild systolic impairment of the left ventricular function. No fever. No chills. No altered mentation. Reevaluated today on 04/10/2019, patient is undergoing dialysis again today. He is very calm and comfortable, his norepinephrine was discontinued early this morning. And he remains on antibiotics, patient is relatively asymptomatic, able to sit up in bed, he has significant improvement in his overall status. He seems to be tolerating dialysis quite well today. So far.his WBC count is 11.1 hemoglobin is 10.9 units lites are normal renal profile showed a BUN of 53 creatinine 5.58.last chest x-ray from 04/07 showed chronic parenchymal changes small left greater than right pleural effusion and bibasilar atelectasis or infiltrates. No follow-up chest x-ray done since then. I will order one to be done today for follow-up. Reevaluated today on 04/11/2019, patient is doing better, he is off norepinephrine at present, his mental status is significantly improved, patient continues to have intermittent drops in his blood pressure down to the 70s systolic, however clinically he feels fine, and he is maximized on medications for blood pressure last night he required norepinephrine again for about 2 hours. Remains on hydrocortisone 50 mg IV push every 8, remains on Florinef, remains on midodrine. Patient will remain in the ICU mostly because of his intermittent drop in blood pressure. Overall the patient has made a significant improvement since admission, but I am a bit reluctant to move him out of the ICU because the drops in blood pressure intermittently. WBC count today is 11.7 hemoglobin is 11 electrolytes are normal BUN is 47 creatinine 4.85. His last cortisol level was 13. Chest x-ray today showed chronic parenchymal changes cardiomegaly and small left pleural effusion. Reevaluated today on 04/12/2019, patient is still off pressors, scheduled to have hemodialysis again today. He did have some drops and blood pressure last night, however did not have any symptoms, and the patient was not placed on norepinephrine. Patient remains on multiple meds as noted above including hydrocortisone and Florinef and midodrine. I believe the patient could be transferred out of the ICU today, and no need to be concerned if his blood pressure remains marginal, as long as the patient does not have any clinical symptoms. All labs were reviewed today. And he would likely have hemodialysis today. Objective - Vital Signs Vital signs: Vital Signs Temp 96.6 F L 04/12/19 08:00 Pulse 64 04/12/19 11:19 Resp 13 04/12/19 08:00 BP 93/69 04/12/19 08:00 Pulse Ox 97 04/12/19 08:00 Intake & Output 04/11/19 04/12/19 04/12/19 18:59 06:59 18:59 Intake Total 423.916 575 40 Output Total 0 0 0 Balance 423.916 575 40 Weight 88 kg Intake: IV 320 340 40 D5 0.45 NACL 220 240 40 Piperacillin-Tazobactam 3 100 100 .375 gm In Sodium Chloride 0.9% 100 ml @ 25 mls/hr IVPB Q12HR [facility] Rx #:[id number] Intake, IV Titration 3.916 Amount Norepinephrine 32 mg In 3.916 Sodium Chloride 0.9% 218 ml @ 0.05 MCG/KG/MIN 2. 234 mls/hr IV .Q24H [facility] Rx#:[id number] Oral 100 235 Output: Urine 0 0 0 Other: Voiding Method Urinal Urinal Urinal # Bowel Movements 1 1 - Exam Physical Exam: Revealed a 83-year-old white male in no distress, on room air. Head: Atraumatic, normocephalic. HEENT:[Neck is supple.] [No neck masses.] [No thyromegaly.] [No JVD.]PERRLA, EOMI, no icterus. Chest: [symmetrical chest expansion, diminished breath sounds crackles at the bases especially at the right base.] Cardiac Exam: [irregular irregular rhythm.Normal S1 and S2, no S3 gallop, 2/6 systolic murmur thought the precordium. Abdomen: [Soft, nontender, no megaly, no rebound, no guarding, normal bowel sounds.] Extremities: [No clubbing,1+ bipedal edema, no cyanosis.] Neurological Exam: [No focal neurologic deficit.]alert and oriented 3, Psychiatric: Normal mood affect and normal mental status examination. Skin: No rashes. Lymphatics: No lymphadenopathy. - Labs CBC & Chem 7: 04/12/19 04:32 04/12/19 04:29 Labs: Abnormal Lab Results - Last 24 Hours (Table) 04/12/19 04/12/19 Range/Units 04:29 04:32 WBC 11.7 H (3.8-10.6) k/uL RBC 3.00 L (4.30-5.90) m/uL Hgb 10.7 L (13.0-17.5) gm/dL Hct 32.4 L (39.0-53.0) % MCV 108.0 H (80.0-100.0) fL MCH 35.8 H (25.0-35.0) pg Macrocytosis Marked A Sodium 136 L (137-145) mmol/L BUN 62 H (9-20) mg/dL Creatinine 5.77 H (0.66-1.25) mg/dL Glucose 133 H (74-99) mg/dL Microbiology - Last 24 Hours (Table) 04/11/19 01:39 Blood Culture - Preliminary Blood No Growth after 24 hours Assessment and Plan Assessment: impression: 1 acute multilobar pneumonia secondary to E. coli 2 acute hypoxic respiratory failure secondary to above. And secondary to fluid overload secondary to renal failure. 3 acute sepsis with secondary hypotension and septic shock secondary to E. coli pneumonia. 4 and stage renal disease, on hemodialysis. 5 chronic systolic congestive heart failure, ejection fraction 45% 6 history of underlying COPD 7 chronic atrial fibrillation 8 dyslipidemia. 9 intermittent episodes of hypotension in spite of multiple meds given for low blood pressure, however patient has no clinical symptoms with lower blood pressure, and did not require placement back on norepinephrine. Recommendation: Continue hemodialysis. Transfer patient to a monitor bed on selective. Continue antibiotics/Zosyn Continue aspiration precautions. Continue incentive spirometry. Continue GI and DVT prophylaxis. Ambulate and incentive spirometry. Continue hydrocortisone. Continue midodrine and Florinef and hydrocortisone. Consider discharge planning in the next 48 hours. Time with Patient: Less than 30
[2019-04-12] MEDS: FOLIC ACID 1 MG TAB PO SCH (11:58)
[2019-04-12] MEDS: MULTIVITAMINS, THERA 1 EACH TAB PO SCH (11:58)
[2019-04-12] MEDS: THIAMINE 100 MG TAB PO SCH (11:58)
--- NOTE | 2019-04-12 15:48 | PN ---
PROGRESS NOTE Patient is seen for followup for end-stage renal disease. He is currently seen on hemodialysis. Patient is tolerating his treatment well. UF goal was increased; however, blood pressure had dropped. Therefore we are back to about 2 L of ultrafiltration. PHYSICAL EXAMINATION: On examination this afternoon, blood pressure was 97/63, heart rate 81 per minute. Patient is afebrile. EXAMINATION OF THE HEART: S1 and S2. EXAMINATION OF LUNGS: Decreased breath sounds at bases. ABDOMEN: Soft, non-tender. Examination of lower extremities shows chronic skin changes. No significant edema is noted. LABS: Hemoglobin 10.7 g/dL, sodium 136, potassium 4.7, BUN 62, creatinine 5.7. ASSESSMENT: 1. End-stage renal disease, on hemodialysis on a Wednesday, Wednesday, Wednesday schedule. Next treatment for Wednesday04/14/2019. 2. Fluid overload, currently improved. 3. Pneumonia with sputum culture growing Escherichia coli. 4. Chronic kidney disease mineral bone disorder. 5. Cardiomyopathy; ejection fraction 45% to 50%. 6. Acute on top of chronic congestive heart failure. PLAN: Next hemodialysis on 04/14/2019. Goal UF about 2 L. Patient is encouraged to increase oral intake. MMODL / IJN: [id number] /
[2019-04-12] MEDS: DEXTROSE 5%-0.45% NACL 1,000 ML IV SCH (15:57)
--- NOTE | 2019-04-12 16:24 | P.PN ---
Subjective Progress Note Date: 04/12/19 Principal diagnosis: This is an 83-year-old male was recently admitted for acute bilateral multifocal pneumonia and also found to have significant hypotension and is currently being closely monitored in the ICU. Patient received dialysis morning and is currently sitting up in the chair in no acute distress. Patient is currently off pressors and blood pressures have slightly improved and is currently on Midodrine 3 times daily and will continue at this time. Patient denies any acute overnight issues. Patient worked with physical therapy today and was up from the bed to the chair. 04/11/2019 Patient is sitting up in bed sleeping but easily arousable in no acute distress. Per nursing staff patient had to be on approximately 2 hours of levophed overnight for low blood pressures of 70s systolic. Patient is currently still in the ICU and being closely monitored. Per nursing staff the patient's blood pressure seems to drop when he is sleeping and his sleep cycles have been off for the last few days as he is sleeping more during the day and up at night. Currently patient denies any chest pain, shortness of breath, or palpitations. Patient has been afebrile. Patient denies any nausea or vomiting and is tolerating diet. Multiple medical consultations are following. Patient will continue dialysis Wednesday/Wednesday/Wednesday and is due for dialysis in the [facility]. 04/12/2019 Patient is sitting up in bed sleeping but easily arousable in no acute distress. No acute overnight issues. Patient has been off the Levophed for 24 hours in managing blood pressure. Patient seems to run low in the 80s systolic at times. Patient is still maintained on Midodrine 10 mg 3 times daily and will continue at this time. Patient is currently maintained in the ICU and awaiting a selective bed at this time. Patient is being closely monitored. Patient is to receive dialysis today. Will continue to monitor closely. Review of Systems: Cardiovascular: No reports of shortness of breath, chest pain, or palpitations Respiratory: No reports of shortness of breath or cough GI: No reports of nausea, vomiting, or diarrhea : No reports of dysuria or urinary retention Constitutional: Reports mild fatigue, no reports of fever, cooperative, non- suicidal Active Medications Acetaminophen (Tylenol Tab) 500 mg PO Q6HR PRN PRN Reason: Fever and/ or Mild Pain Last Admin: 04/09/19 00:22 Dose: 500 mg Documented by: Hydrocodone Bitart/Acetaminophen (Goode 5-325) 1 each PO Q6HR PRN PRN Reason: Pain Albuterol/Ipratropium (Duoneb 0.5 Mg-3 Mg/3 Ml Soln) 3 ml INHALATION RT-Q4H PRN PRN Reason: Shortness Of Breath Or Wheezing Albuterol/Ipratropium (Duoneb 0.5 Mg-3 Mg/3 Ml Soln) 3 ml INHALATION RT-QID [facility] Last Admin: 04/12/19 15:52 Dose: 3 ml Documented by: Allopurinol (Zyloprim) 100 mg PO HS [facility] Last Admin: 04/11/19 21:33 Dose: 100 mg Documented by: Brimonidine Tartrate ([facility] 1 drops BOTH EYES BID [facility] Last Admin: 04/12/19 08:29 Dose: 1 drops Documented by: Budesonide (Pulmicort) 1 mg INHALATION RT-BID [facility] Last Admin: 04/12/19 07:41 Dose: 1 mg Documented by: Carbidopa/Levodopa (Sinemet 25-100) 1 each PO BID [facility] Last Admin: 04/12/19 08:30 Dose: 1 each Documented by: Docusate Sodium (Colace) 100 mg PO DAILY [facility] Last Admin: 04/12/19 08:30 Dose: Not Given Documented by: Fludrocortisone Acetate (Florinef) 0.2 mg PO BID [facility] Last Admin: 04/12/19 08:30 Dose: 0.2 mg Documented by: Folic Acid (Folic Acid) 1 mg PO DAILY@1200 [facility] Last Admin: 04/12/19 11:58 Dose: 1 mg Documented by: Formoterol Fumarate (Perforomist) 20 mcg INHALATION RT-BID [facility] Last Admin: 04/12/19 07:41 Dose: 20 mcg Documented by: Gabapentin (Neurontin) 100 mg PO TID [facility] Last Admin: 04/12/19 15:58 Dose: 100 mg Documented by: Heparin Sodium (Porcine) (Heparin) 5,000 unit SQ Q12HR [facility] Last Admin: 04/12/19 08:31 Dose: 5,000 unit Documented by: Hydrocortisone Sodium Succinate (Solu-Cortef) 50 mg IV Q8HR [facility] Last Admin: 04/12/19 15:58 Dose: 50 mg Documented by: Dextrose/Sodium Chloride (Dextrose 5%-1/2ns Iv Soln) 1,000 mls @ 20 mls/hr IV .Q24H [facility] Last Admin: 04/12/19 15:57 Dose: Not Given Documented by: Norepinephrine Bitartrate 32 (mg/ Sodium Chloride) 250 mls @ 2.234 mls/hr IV .Q24H [facility]; Protocol Last Admin: 04/12/19 09:30 Dose: Not Given Documented by: Piperacillin Sod/Tazobactam (Sod 3.375 gm/ Sodium Chloride) 100 mls @ 25 mls/hr IVPB Q12HR [facility] Last Admin: 04/12/19 08:31 Dose: 25 mls/hr Documented by: Levetiracetam (Keppra) [address] [facility] Last Admin: 04/11/19 21:32 Dose: 250 mg Documented by: Levocarnitine (Carnitor Oral Soln) 330 mg PO TID-W/MEALS [facility] Last Admin: 04/12/19 11:58 Dose: 330 mg Documented by: Midodrine (Proamatine) 10 mg PO AC-TID [facility] Last Admin: 04/12/19 11:58 Dose: 10 mg Documented by: Multivitamins (Theragran) 1 each PO DAILY@1200 [facility] Last Admin: 04/12/19 11:58 Dose: 1 each Documented by: Naloxone HCl (Narcan) 0.2 mg IV Q2M PRN PRN Reason: Opioid Reversal Pantoprazole Sodium (Protonix) 40 mg PO DAILY [facility] Last Admin: 04/12/19 08:31 Dose: 40 mg Documented by: Pravastatin Sodium (Pravachol) [address] [facility] Last Admin: 04/11/19 21:31 Dose: 20 mg Documented by: Ropinirole HCl (Requip) 4 mg PO TID [facility] Last Admin: 04/12/19 15:58 Dose: 4 mg Documented by: Thiamine HCl (Vitamin B-1) 100 mg PO DAILY@1200 [facility] Last Admin: 04/12/19 11:58 Dose: 100 mg Documented by: Timolol Maleate (Timoptic) 1 drops BOTH EYES DAILY [facility] Last Admin: 04/12/19 08:31 Dose: 1 drops Documented by: Objective - Vital Signs Vital signs: Vital Signs Temp 96.6 F L 04/12/19 08:00 Pulse 80 12/04/19 08:00 Resp 13 04/12/19 08:00 BP 93/69 04/12/19 08:00 Pulse Ox 97 04/12/19 08:00 Intake & Output 04/11/19 04/12/19 04/12/19 18:59 06:59 18:59 Intake Total 423.916 575 40 Output Total 0 0 0 Balance 423.916 575 40 Weight 88 kg Intake: IV 320 340 40 D5 0.45 NACL 220 240 40 Piperacillin-Tazobactam 3 100 100 .375 gm In Sodium Chloride 0.9% 100 ml @ 25 mls/hr IVPB Q12HR [facility] Rx #:[id number] Intake, IV Titration 3.916 Amount Norepinephrine 32 mg In 3.916 Sodium Chloride 0.9% 218 ml @ 0.05 MCG/KG/MIN 2. 234 mls/hr IV .Q24H [facility] Rx#:[id number] Oral 100 235 Output: Urine 0 0 0 Other: Voiding Method Urinal Urinal Urinal # Bowel Movements 1 1 - Exam Gen: This is a 83-year-old male sitting up in bed sleeping but easily arousable, in no acute distress. Patient is hard of hearing. Temp is 96.6F, pulse is 80, respirations are 13, blood pressure is 93/69, oxygen saturation is 97 % on room air HEENT: Head is atraumatic, normocephalic. Pupils equal, round. Sclerae is anicteric. Conjunctiva is normal NECK: Supple. No JVD. No lymphadenopathy. No thyromegaly. LUNGS: Breath sounds diminished with few scattered rhonchi and crackles noted throughout. No intercostal retractions. HEART: Regular rate and rhythm. No murmur. ABDOMEN: Soft. Non-tender. Bowel sounds are present. No masses. EXTREMITIES: Mild pedal edema noted bilaterally. No calf tenderness. SCDs noted NEUROLOGICAL: Patient is asleep but easily arousable, alert and oriented x2. - Labs CBC & Chem 7: 04/12/19 04:32 04/12/19 04:29 Labs: Abnormal Lab Results - Last 24 Hours (Table) 04/12/19 04/12/19 Range/Units 04:29 04:32 WBC 11.7 H (3.8-10.6) k/uL RBC 3.00 L (4.30-5.90) m/uL Hgb 10.7 L (13.0-17.5) gm/dL Hct 32.4 L (39.0-53.0) % MCV 108.0 H (80.0-100.0) fL MCH 35.8 H (25.0-35.0) pg Macrocytosis Marked A Sodium 136 L (137-145) mmol/L BUN 62 H (9-20) mg/dL Creatinine 5.77 H (0.66-1.25) mg/dL Glucose 133 H (74-99) mg/dL Microbiology - Last 24 Hours (Table) 04/11/19 01:39 Blood Culture - Preliminary Blood No Growth after 24 hours Assessment and Plan Assessment: Acute bilateral multifocal pneumonia with septic shock and hypotension, present on admission Acute hypoxic respiratory failure present on admission Congestive heart failure acute exacerbation with acute on chronic systolic dysfunction, ejection fraction 45-50% Chronic hypotension on Midodrine 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 We will continue to monitor this patient closely. Multiple medical consultations following. Patient is currently still on the ICU for close monitoring and has been off levophed for 24 hours now. Patient is awaiting a bed on the selected unit to transfer out of the ICU but no bed available at this time. Patient will continue with IV antibiotics in the form of Zosyn at this time. Patient will continue with bronchodilators. Patient will receive dialysis this morning as his normal regimen of Wednesday/Wednesday/Wednesday. Multiple medical consultations are following. Due to multiple complex medical issues prognosis is guarded. Further recommendations to follow.
[2019-04-12] MEDS: PRAVASTATIN SODIUM 20 MG TAB PO SCH (21:30)
[2019-04-12] MEDS: ALLOPURINOL 100 MG TAB PO SCH (21:30)
[2019-04-12] MEDS: levETIRAcetam 250 MG TAB PO SCH (21:31)
[2019-04-13] MEDS: HYDROCORTISONE SUCCINATE 100 MG/2 ML VIAL IV SCH ×4 (00:34→22:18)
[2019-04-13 05:00] LABS: HCT 33.1 % (39.0-53.0); HGB 10.6 gm/dL (13.0-17.5); MCH 34.1 pg (25.0-35.0); MCHC 31.9 g/dL (31.0-37.0); Macrocytosis Moderate; Mean Platelet Volume 8.5; Platelet Count 165 k/uL (150-450); RDW 14.3 % (11.5-15.5); WBC 11.9 k/uL (3.8-10.6)
[2019-04-13 05:14] LABS: Calcium 9.2 mg/dL (8.4-10.2); Potassium 4.3 mmol/L (3.5-5.1)
[2019-04-13] MEDS: BUDESONIDE 1 MG/2 ML NEBU INHALATION SCH ×2 (08:23→22:14)
[2019-04-13] MEDS: IPRATROPIUM-ALBUTEROL 3 ML NEB INHALATION SCH ×4 (08:23→22:14)
[2019-04-13] MEDS: FORMOTEROL FUMARATE 20 MCG/2 ML NEBU INHALATION SCH ×2 (08:23→22:14)
--- NOTE | 2019-04-13 10:30 | P.PN ---
Subjective Patient is seen in follow-up for end-stage renal disease. He is maintained on hemodialysis on Wednesday schedule. Oral intake is fair. Edema has significantly improved since admission. Tolerated 2 L ultrafiltration yesterday. Awake and alert. No active complaints. Vital signs are stable. General: The patient appeared well nourished and normally developed. HEENT: Head exam is unremarkable. Neck is without jugular venous distension. LUNGS: Lungs are clear to auscultation and percussion. Breath sounds decreased. HEART: Rate and Rhythm are regular. First and second heart sounds normal. No murmurs, rubs or gallops. ABDOMEN: Abdominal exam reveals normal bowel sounds. Distention noted. EXTREMITITES: Trace edema. Objective - Vital Signs Vital signs: Vital Signs Temp 97.8 F 04/13/19 08:00 Pulse 73 04/13/19 08:48 Resp 18 04/13/19 08:00 BP 98/60 04/13/19 08:00 Pulse Ox 94 L 04/13/19 04:00 Intake & Output 04/12/19 04/13/19 04/13/19 18:59 06:59 18:59 Intake Total 200 100 Output Total 2002 2 Balance -1803 98 Weight 86.9 kg Intake: IV 200 100 D5 0.45 NACL 200 0 Piperacillin-Tazobactam 3 100 .375 gm In Sodium Chloride 0.9% 100 ml @ 25 mls/hr IVPB Q12HR [facility] Rx #:[id number] Output: Urine 0 Stool 3 2 Hemodialysis 2000 Other: Voiding Method Urinal Urinal # Bowel Movements 1 4 - Labs CBC & Chem 7: 04/13/19 04:50 04/13/19 04:50 Labs: Abnormal Lab Results - Last 24 Hours (Table) 04/13/19 04/13/19 Range/Units 04:50 04:50 WBC 11.9 H (3.8-10.6) k/uL RBC 3.10 L (4.30-5.90) m/uL Hgb 10.6 L (13.0-17.5) gm/dL Hct 33.1 L (39.0-53.0) % MCV 107.0 H (80.0-100.0) fL BUN 48 H (9-20) mg/dL Creatinine 4.40 H (0.66-1.25) mg/dL Glucose 129 H (74-99) mg/dL Microbiology - Last 24 Hours (Table) 04/11/19 01:39 Blood Culture - Preliminary Blood No Growth after 48 hours Assessment and Plan Plan: Assessment: 1. End-stage renal disease maintained on hemodialysis on Wednesday schedule. 2. Chronic hypotension maintained on midodrine, Florinef and Solu-Cortef. Off Levophed. 3. Acute on chronic systolic CHF with ejection fraction of 45-50%. 4. Volume overload. Improved. 5. Pneumonia maintained on antibiotics. Sputum culture positive for E. coli. Plan: Hemodialysis tomorrow.
[2019-04-13] MEDS: levOCARNitine (WITH SUGAR) 100 MG/ML BOTTLE PO SCH ×3 (11:08→17:45)
[2019-04-13] MEDS: MIDODRINE 5 MG TAB PO SCH ×3 (11:09→17:46)
[2019-04-13] MEDS: BRIMONIDINE TARTRATE 0.2% DROPS 5 ML BTL BOTH EYES SCH ×2 (11:10→20:34)
[2019-04-13] MEDS: CARBIDOPA-LEVODOPA 25-100 MG 1 EACH TAB PO SCH ×2 (11:11→20:32)
[2019-04-13] MEDS: HEPARIN SODIUM,PORCINE 5,000 UNIT/ML 1 ML VIAL SQ SCH ×2 (11:12→20:31)
[2019-04-13] MEDS: GABAPENTIN 100 MG CAP PO SCH ×3 (11:12→20:32)
[2019-04-13] MEDS: FLUDROCORTISONE 0.1 MG TAB PO SCH ×2 (11:12→23:41)
[2019-04-13] MEDS: DOCUSATE 100 MG CAP PO SCH (11:12)
[2019-04-13] MEDS: PIPERACILLIN-TAZOBACTAM 3.375 GM in SODIUM CHLORIDE 0.9% 100 ML IVPB SCH ×2 (11:13→20:32)
[2019-04-13] MEDS: PANTOPRAZOLE SODIUM 40 MG GRANULE PKT PO SCH (11:13)
[2019-04-13] MEDS: rOPINIRole HCL 4 MG TABLET PO SCH ×3 (11:13→22:18)
[2019-04-13] MEDS: TIMOLOL 0.5% OPHTH DROPS 5 ML BTL BOTH EYES SCH (11:14)
[2019-04-13] MEDS: FOLIC ACID 1 MG TAB PO SCH (11:14)
[2019-04-13] MEDS: THIAMINE 100 MG TAB PO SCH (11:14)
[2019-04-13] MEDS: MULTIVITAMINS, THERA 1 EACH TAB PO SCH (11:14)
--- NOTE | 2019-04-13 11:30 | P.PN ---
Subjective Progress Note Date: 04/13/19 Principal diagnosis: acute multilobar pneumonia secondary to E. coli This is a 83-year-old white male patient who follows with Dr. Peoples for primary care services, with past medical history of end-stage renal disease on hemodialysis on Wednesday basis, chronic A. fib on Coumadin, COPD, hypertension, hyperlipidemia, recurrent pleural effusions, with past history of thoracentesis with negative pathology. Patient has a mildly impaired left ventricle systolic function with an EF of 45-50%, without evidence of significant valvular disease. Patient was dialyzed on Wednesday, on 02/27/2019, and apparently received an extra long hemodialysis treatment, and had a 2-1/2 L taken off, however over the past few days he has been experiencing increased shortness of breath, difficulty walking, and patient had obvious signs of fluid overload with increased lower extremity and truncal swelling, and apparently he put on over 9 pounds in the last 2 days. Patient was then directed to the emergency department for evaluation, and hemodialysis treatment was done on 02/28/2019 with removal of 2 L of fluid. Chest x-ray was completed, showing fluid overload with mild interstitial edema and pleural effusions left greater than the right. Labs showed white count of 5.6, hemoglobin of 9.9, sodium of 137, potassium 4.5, chloride is 94, CO2 32, BUN of 47, and creatinine of 3.70. Patient is being seen in the emergency department he is awaiting a bed on selective care unit, he will have another hemodialysis treatment today, he is feeling better today, he did experience some hypotension which has resolved. Patient is on midodrine at 10 mg 3 times a day and hydrocortisone at 10 mg twice daily On 04/09/2019 the patient is undergoing no dialysis today. He is calm and comfortable. He is on 3 g of norepinephrine infusion for blood pressure support. Should be weaned off today. He is on IV Zosyn. No respiratory difficulties. Cough and congestion is improved. He is able to speak of. This is. He is sitting up in his bed. Significant improvement in lower extremity edema today's evaluation. There has been updated on for the past 5 days with significant ultrafiltration. No fever. No chills. No altered mentation. Family is at the bedside. Nephrology decreased. Echo was done and ejection fraction of 45% consistent with mild systolic impairment of the left ventricular function. No fever. No chills. No altered mentation. Reevaluated today on 04/10/2019, patient is undergoing dialysis again today. He is very calm and comfortable, his norepinephrine was discontinued early this morning. And he remains on antibiotics, patient is relatively asymptomatic, able to sit up in bed, he has significant improvement in his overall status. He seems to be tolerating dialysis quite well today. So far.his WBC count is 11.1 hemoglobin is 10.9 units lites are normal renal profile showed a BUN of 53 creatinine 5.58.last chest x-ray from 04/07 showed chronic parenchymal changes small left greater than right pleural effusion and bibasilar atelectasis or infiltrates. No follow-up chest x-ray done since then. I will order one to be done today for follow-up. Reevaluated today on 04/11/2019, patient is doing better, he is off norepinephrine at present, his mental status is significantly improved, patient continues to have intermittent drops in his blood pressure down to the 70s systolic, however clinically he feels fine, and he is maximized on medications for blood pressure last night he required norepinephrine again for about 2 hours. Remains on hydrocortisone 50 mg IV push every 8, remains on Florinef, remains on midodrine. Patient will remain in the ICU mostly because of his intermittent drop in blood pressure. Overall the patient has made a significant improvement since admission, but I am a bit reluctant to move him out of the ICU because the drops in blood pressure intermittently. WBC count today is 11.7 hemoglobin is 11 electrolytes are normal BUN is 47 creatinine 4.85. His last cortisol level was 13. Chest x-ray today showed chronic parenchymal changes cardiomegaly and small left pleural effusion. Reevaluated today on 04/12/2019, patient is still off pressors, scheduled to have hemodialysis again today. He did have some drops and blood pressure last night, however did not have any symptoms, and the patient was not placed on norepinephrine. Patient remains on multiple meds as noted above including hydrocortisone and Florinef and midodrine. I believe the patient could be transferred out of the ICU today, and no need to be concerned if his blood pressure remains marginal, as long as the patient does not have any clinical symptoms. All labs were reviewed today. And he would likely have hemodialysis today. Reevaluated today on 04/13/2019, patient remains in the ICU as an overflow. He is doing fine, basically asymptomatic, blood pressure remains extremely marginal. But did not require any pressors over the last 24 hours. Labs were basically unremarkable today, BUN is 48 creatinine 4.40, remains on hem odialysis. Patient tolerated 2 L ultrafiltration yesterday. Objective - Vital Signs Vital signs: Vital Signs Temp 97.8 F 04/13/19 08:00 Pulse 73 04/13/19 08:48 Resp 18 04/13/19 08:00 BP 98/60 04/13/19 08:00 Pulse Ox 94 L 04/13/19 04:00 Intake & Output 04/12/19 04/13/19 04/13/19 18:59 06:59 18:59 Intake Total 200 100 Output Total 2002 2 Balance -1803 98 Weight 86.9 kg Intake: IV 200 100 D5 0.45 NACL 200 0 Piperacillin-Tazobactam 3 100 .375 gm In Sodium Chloride 0.9% 100 ml @ 25 mls/hr IVPB Q12HR [facility] Rx #:[id number] Output: Urine 0 Stool 3 2 Hemodialysis 1999 Other: Voiding Method Urinal Urinal # Bowel Movements 1 4 - Exam Physical Exam: Revealed a 83-year-old white male in no distress, on room air. Head: Atraumatic, normocephalic. HEENT:[Neck is supple.] [No neck masses.] [No thyromegaly.] [No JVD.]PERRLA, EOMI, no icterus. Chest: [symmetrical chest expansion, diminished breath sounds crackles at the bases especially at the right base.] Cardiac Exam: [irregular irregular rhythm.Normal S1 and S2, no S3 gallop, 2/6 systolic murmur thought the precordium. Abdomen: [Soft, nontender, no megaly, no rebound, no guarding, normal bowel sounds.] Extremities: [No clubbing,1+ bipedal edema, no cyanosis.] Neurological Exam: [No focal neurologic deficit.]alert and oriented 3, Psychiatric: Normal mood affect and normal mental status examination. Skin: No rashes. Lymphatics: No lymphadenopathy. - Labs CBC & Chem 7: 04/13/19 04:50 04/13/19 04:50 Labs: Abnormal Lab Results - Last 24 Hours (Table) 04/13/19 04/13/19 Range/Units 04:50 04:50 WBC 11.9 H (3.8-10.6) k/uL RBC 3.10 L (4.30-5.90) m/uL Hgb 10.6 L (13.0-17.5) gm/dL Hct 33.1 L (39.0-53.0) % MCV 107.0 H (80.0-100.0) fL BUN 48 H (9-20) mg/dL Creatinine 4.40 H (0.66-1.25) mg/dL Glucose 129 H (74-99) mg/dL Microbiology - Last 24 Hours (Table) 04/11/19 01:39 Blood Culture - Preliminary Blood No Growth after 48 hours Assessment and Plan Assessment: impression: 1 acute multilobar pneumonia secondary to E. coli 2 acute hypoxic respiratory failure secondary to above. And secondary to fluid overload secondary to renal failure. 3 acute sepsis with secondary hypotension and septic shock secondary to E. coli pneumonia. 4 and stage renal disease, on hemodialysis. 5 chronic systolic congestive heart failure, ejection fraction 45% 6 history of underlying COPD 7 chronic atrial fibrillation 8 dyslipidemia. 9 intermittent episodes of hypotension in spite of multiple meds given for low blood pressure, however patient has no clinical symptoms with lower blood pressure, and did not require placement back on norepinephrine. Recommendation: Continue hemodialysis./Ultrafiltration. Continue antibiotics/Zosyn Continue aspiration precautions. Continue incentive spirometry. Continue GI and DVT prophylaxis. Ambulate and incentive spirometry. Continue hydrocortisone. However I will cut the dose down further. It will be 25 mg IV push every 8 hours Continue midodrine and Florinef and hydrocortisone. Patient is presently overflow in the ICU. Consider discharge planning to a rehab facility in the next couple of days. Time with Patient: Less than 30
--- NOTE | 2019-04-13 16:22 | P.PN ---
Subjective Progress Note Date: 04/13/19 Principal diagnosis: This is an 83-year-old male was recently admitted for acute bilateral multifocal pneumonia and also found to have significant hypotension and is currently being closely monitored in the ICU. Patient received dialysis morning and is currently sitting up in the chair in no acute distress. Patient is currently off pressors and blood pressures have slightly improved and is currently on Midodrine 3 times daily and will continue at this time. Patient denies any acute overnight issues. Patient worked with physical therapy today and was up from the bed to the chair. 04/11/2019 Patient is sitting up in bed sleeping but easily arousable in no acute distress. Per nursing staff patient had to be on approximately 2 hours of levophed overnight for low blood pressures of 70s systolic. Patient is currently still in the ICU and being closely monitored. Per nursing staff the patient's blood pressure seems to drop when he is sleeping and his sleep cycles have been off for the last few days as he is sleeping more during the day and up at night. Currently patient denies any chest pain, shortness of breath, or palpitations. Patient has been afebrile. Patient denies any nausea or vomiting and is tolerating diet. Multiple medical consultations are following. Patient will continue dialysis Wednesday/Wednesday/Wednesday and is due for dialysis in the [facility]. 04/12/2019 Patient is sitting up in bed sleeping but easily arousable in no acute distress. No acute overnight issues. Patient has been off the Levophed for 24 hours in managing blood pressure. Patient seems to run low in the 80s systolic at times. Patient is still maintained on Midodrine 10 mg 3 times daily and will continue at this time. Patient is currently maintained in the ICU and awaiting a selective bed at this time. Patient is being closely monitored. Patient is to receive dialysis today. Will continue to monitor closely. 04/13/2019 Patient is sitting up in the chair in no acute distress with no acute overnight issues. Patient is currently in the ICU being closely monitored awaiting a bed on the selected unit. Patient continues to have low blood pressure as this is his baseline. Multiple medical consultations are following. Continue to encourage incentive spirometry at least 10 times every hour while awake. Discussed with the patient today about discharge plans and patient is adamant about returning home. Patient states that he lives with his at home. Currently patient denies any chest pain, palpitations, or shortness of breath. Patient is afebrile. Patient denies any nausea or vomiting and is tolerating diet. Patient is currently on IV antibiotics in the form of Zosyn and will continue at this time. Patient is scheduled to have dialysis in the morning. Objective - Vital Signs Vital signs: Vital Signs Temp 97.8 F 04/13/19 12:00 Pulse 82 04/13/19 15:47 Resp 19 04/13/19 12:00 BP 88/54 04/13/19 12:00 Pulse Ox 94 L 04/13/19 12:00 Intake & Output 04/12/19 04/13/19 04/13/19 18:59 06:59 18:59 Intake Total 200 100 300 Output Total 2002 2 2 Balance -1803 98 298 Weight 86.9 kg Intake: IV 200 100 200 D5 0.45 NACL 200 0 Piperacillin-Tazobactam 3 100 200 .375 gm In Sodium Chloride 0.9% 100 ml @ 25 mls/hr IVPB Q12HR [facility] Rx #:[id number] Oral 100 Output: Urine 0 Stool 3 2 2 Hemodialysis 1999 Other: Voiding Method Urinal Urinal Urinal # Bowel Movements 1 4 - Exam Gen: This is a 83-year-old male sitting up in the chair in no acute distress. Patient is hard of hearing. Temp is 97.8 F, pulse is 85, respirations are 18, blood pressure is 98/60, oxygen saturation is 94 % on room air HEENT: Head is atraumatic, normocephalic. Pupils equal, round. Sclerae is ani cteric. Conjunctiva is normal NECK: Supple. No JVD. No lymphadenopathy. No thyromegaly. LUNGS: Breath sounds diminished with few scattered rhonchi and crackles noted throughout. No intercostal retractions. HEART: Regular rate and rhythm. No murmur. ABDOMEN: Soft. Non-tender. Bowel sounds are present. No masses. EXTREMITIES: Mild pedal edema noted bilaterally. No calf tenderness. SCDs note d. Edema slightly improved NEUROLOGICAL: Patient is asleep but easily arousable, alert and oriented x2. - Labs CBC & Chem 7: 04/13/19 04:50 04/13/19 04:50 Labs: Abnormal Lab Results - Last 24 Hours (Table) 04/13/19 04/13/19 Range/Units 04:50 04:50 WBC 11.9 H (3.8-10.6) k/uL RBC 3.10 L (4.30-5.90) m/uL Hgb 10.6 L (13.0-17.5) gm/dL Hct 33.1 L (39.0-53.0) % MCV 107.0 H (80.0-100.0) fL BUN 48 H (9-20) mg/dL Creatinine 4.40 H (0.66-1.25) mg/dL Glucose 129 H (74-99) mg/dL Microbiology - Last 24 Hours (Table) 04/11/19 01:39 Blood Culture - Preliminary Blood No Growth after 48 hours Assessment and Plan Assessment: Acute bilateral multifocal pneumonia with septic shock and hypotension, present on admission Acute hypoxic respiratory failure present on admission Congestive heart failure acute exacerbation with acute on chronic systolic dysfunction, ejection fraction 45-50% Chronic hypotension on Midodrine 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 We will continue to monitor this patient closely. Multiple medical consultations following. Patient is currently still on the ICU for close monitoring and is awaiting a bed on the selected unit. Patient will continue with IV antibiotics in the form of Zosyn at this time. Patient will continue with bronchodilators. Patient will receive dialysis in the morning morning as his normal regimen of Wednesday/Wednesday/Wednesday. Due to multiple complex medical issues prognosis is guarded. When discussing with the patient about discharge plans patient is adamant about returning home and does not want to go to a rehab facility. Case management and social work are following for possible discharge needs. Further recommendations to follow.
[2019-04-13 20:27] VITALS: RESP 18
[2019-04-13] MEDS: ALLOPURINOL 100 MG TAB PO SCH (20:32)
[2019-04-13] MEDS: PRAVASTATIN SODIUM 20 MG TAB PO SCH (20:32)
[2019-04-13] MEDS: levETIRAcetam 250 MG TAB PO SCH (22:19)
[2019-04-14 06:38] LABS: HCT 31.7 % (39.0-53.0); HGB 10.5 gm/dL (13.0-17.5); MCH 35.2 pg (25.0-35.0); MCV 106.7 fL (80.0-100.0); Macrocytosis Moderate; Mean Platelet Volume 9.8; Platelet Count 179 k/uL (150-450); RBC 2.97 m/uL (4.30-5.90); RDW 14.3 % (11.5-15.5); WBC 11.1 k/uL (3.8-10.6)
[2019-04-14 06:55] LABS: Calcium 9.3 mg/dL (8.4-10.2); Potassium 4.6 mmol/L (3.5-5.1)
[2019-04-14] MEDS: levOCARNitine (WITH SUGAR) 100 MG/ML BOTTLE PO SCH (07:08)
[2019-04-14] MEDS: MIDODRINE 5 MG TAB PO SCH ×2 (07:08→13:04)
[2019-04-14] MEDS: IPRATROPIUM-ALBUTEROL 3 ML NEB INHALATION SCH ×2 (08:39→11:34)
[2019-04-14] MEDS: FORMOTEROL FUMARATE 20 MCG/2 ML NEBU INHALATION SCH (08:40)
[2019-04-14] MEDS: BUDESONIDE 1 MG/2 ML NEBU INHALATION SCH (08:40)
[2019-04-14] MEDS: rOPINIRole HCL 4 MG TABLET PO SCH (09:09)
[2019-04-14 11:16] VITALS: BP 100/58; PULSE 84; TEMP 98
[2019-04-14 11:32] VITALS: BMI 26.2
[2019-04-14] MEDS: HYDROCORTISONE SUCCINATE 100 MG/2 ML VIAL IV SCH (12:51)
[2019-04-14] MEDS: PIPERACILLIN-TAZOBACTAM 3.375 GM in SODIUM CHLORIDE 0.9% 100 ML IVPB SCH (12:52)
[2019-04-14] MEDS: GABAPENTIN 100 MG CAP PO SCH (13:04)
[2019-04-14] MEDS: DOCUSATE 100 MG CAP PO SCH (13:04)
[2019-04-14] MEDS: FOLIC ACID 1 MG TAB PO SCH (13:04)
[2019-04-14] MEDS: CARBIDOPA-LEVODOPA 25-100 MG 1 EACH TAB PO SCH (13:04)
[2019-04-14] MEDS: FLUDROCORTISONE 0.1 MG TAB PO SCH (13:05)
[2019-04-14] MEDS: HEPARIN SODIUM,PORCINE 5,000 UNIT/ML 1 ML VIAL SQ SCH (13:05)
[2019-04-14] MEDS: PANTOPRAZOLE SODIUM 40 MG GRANULE PKT PO SCH (13:05)
[2019-04-14] MEDS: BRIMONIDINE TARTRATE 0.2% DROPS 5 ML BTL BOTH EYES SCH (13:06)
[2019-04-14] MEDS: TIMOLOL 0.5% OPHTH DROPS 5 ML BTL BOTH EYES SCH (13:07)
--- NOTE | 2019-04-14 13:34 | P.PN ---
Subjective Progress Note Date: 04/14/19 Principal diagnosis: Acute multilobar pneumonia secondary to E. coli This is a 83-year-old white male patient who follows with Dr. Peoples for primary care services, with past medical history of end-stage renal disease on hemodialysis on Wednesday basis, chronic A. fib on Coumadin, COPD, hypertension, hyperlipidemia, recurrent pleural effusions, with past history of thoracentesis with negative pathology. Patient has a mildly impaired left ventricle systolic function with an EF of 45-50%, without evidence of significant valvular disease. Patient was dialyzed on Wednesday, on 02/27/2019, and apparently received an extra long hemodialysis treatment, and had a 2-1/2 L taken off, however over the past few days he has been experiencing increased shortness of breath, difficulty walking, and patient had obvious signs of fluid overload with increased lower extremity and truncal swelling, and apparently he put on over 9 pounds in the last 2 days. Patient was then directed to the emergency department for evaluation, and hemodialysis treatment was done on 02/28/2019 with removal of 2 L of fluid. Chest x-ray was completed, showing fluid overload with mild interstitial edema and pleural effusions left greater than the right. Labs showed white count of 5.6, hemoglobin of 9.9, sodium of 137, potassium 4.5, chloride is 94, CO2 32, BUN of 47, and creatinine of 3.70. Patient is being seen in the emergency department he is awaiting a bed on selective care unit, he will have another hemodialysis treatment today, he is feeling better today, he did experience some hypotension which has resolved. Patient is on midodrine at 10 mg 3 times a day and hydrocortisone at 10 mg twice daily On 04/09/2019 the patient is undergoing no dialysis today. He is calm and comfortable. He is on 3 g of norepinephrine infusion for blood pressure support. Should be weaned off today. He is on IV Zosyn. No respiratory difficulties. Cough and congestion is improved. He is able to speak of. This is. He is sitting up in his bed. Significant improvement in lower extremity edema today's evaluation. There has been updated on for the past 5 days with significant ultrafiltration. No fever. No chills. No altered mentation. Family is at the bedside. Nephrology decreased. Echo was done and ejection fraction of 45% consistent with mild systolic impairment of the left ventricular function. No fever. No chills. No altered mentation. Reevaluated today on 04/10/2019, patient is undergoing dialysis again today. He is very calm and comfortable, his norepinephrine was discontinued early this morning. And he remains on antibiotics, patient is relatively asymptomatic, able to sit up in bed, he has significant improvement in his overall status. He seems to be tolerating dialysis quite well today. So far.his WBC count is 11.1 hemoglobin is 10.9 units lites are normal renal profile showed a BUN of 53 creatinine 5.58.last chest x-ray from 04/07 showed chronic parenchymal changes small left greater than right pleural effusion and bibasilar atelectasis or infiltrates. No follow-up chest x-ray done since then. I will order one to be done today for follow-up. Reevaluated today on 04/11/2019, patient is doing better, he is off norepinephrine at present, his mental status is significantly improved, patient continues to have intermittent drops in his blood pressure down to the 70s systolic, however clinically he feels fine, and he is maximized on medications for blood pressure last night he required norepinephrine again for about 2 hours. Remains on hydrocortisone 50 mg IV push every 8, remains on Florinef, remains on midodrine. Patient will remain in the ICU mostly because of his intermittent drop in blood pressure. Overall the patient has made a significant improvement since admission, but I am a bit reluctant to move him out of the ICU because the drops in blood pressure intermittently. WBC count today is 11.7 hemoglobin is 11 electrolytes are normal BUN is 47 creatinine 4.85. His last cortisol level was 13. Chest x-ray today showed chronic parenchymal changes cardiomegaly and small left pleural effusion. Reevaluated today on 04/12/2019, patient is still off pressors, scheduled to have hemodialysis again today. He did have some drops and blood pressure last night, however did not have any symptoms, and the patient was not placed on norepinephrine. Patient remains on multiple meds as noted above including hydrocortisone and Florinef and midodrine. I believe the patient could be transferred out of the ICU today, and no need to be concerned if his blood pressure remains marginal, as long as the patient does not have any clinical symptoms. All labs were reviewed today. And he would likely have hemodialysis today. Reevaluated today on 04/13/2019, patient remains in the ICU as an overflow. He is doing fine, basically asymptomatic, blood pressure remains extremely marginal. But did not require any pressors over the last 24 hours. Labs were basically unremarkable today, BUN is 48 creatinine 4.40, remains on he modialysis. Patient tolerated 2 L ultrafiltration yesterday. On 04/14/2019 patient seen in follow-up on [facility] care unit, he is having hemodialysis treatment today, with the goal of 2 L off. Denies any specific complaints other than generalized weakness, no worsening shortness of breath, patient is on room air and a pulse ox of 93%, no fever or chills, vital signs are stable, on appropriate antibiotics for E. coli pneumonia, it is labs have been reviewed, showing white blood cell count 11.1, hemoglobin of 10.5, index was within normal limits, BUN is 62 creatinine is 5.61. Objective - Vital Signs Vital signs: Vital Signs Temp 98.0 F 04/14/19 11:14 Pulse 84 04/14/19 11:14 Resp 18 04/14/19 11:14 BP 100/58 04/14/19 11:14 Pulse Ox 93 L 04/14/19 08:42 Intake & Output 04/13/19 04/14/19 04/14/19 18:59 06:59 18:59 Intake Total 420 360 Output Total 2 2 2250 Balance 418 -2 -1890 Weight 85.4 kg 85.4 kg Intake: IV 200 Piperacillin-Tazobactam 3 200 .375 gm In Sodium Chloride 0.9% 100 ml @ 25 mls/hr IVPB Q12HR [facility] Rx #:[id number] Oral 220 360 Output: Urine 2 Stool 2 Hemodialysis 2250 Other: Voiding Method Toilet Toilet Urinal Urinal # Voids 1 1 # Bowel Movements 1 2 - Exam GENERAL EXAM: Alert, pleasant, 83-year-old chronically ill looking white male, on room air with dialysis treatment done, slightly hard of hearing, comfortable in no apparent distress. HEAD: Normocephalic/atraumatic. EYES: Normal reaction of pupils, equal size. Conjunctiva pink, sclera white. NOSE: Clear with pink turbinates. THROAT: No erythema or exudates. NECK: No masses, no JVD, no thyroid enlargement, no adenopathy. CHEST: No chest wall deformity. Symmetrical expansion. LUNGS: Equal air entry with no crackles, wheeze, rhonchi or dullness. CVS: Regular rate and rhythm, normal S1 and S2, no gallops, systolic murmur across the precordium, no rubs ABDOMEN: Soft, nontender, distended. No hepatosplenomegaly, normal bowel sounds, no guarding or rigidity. EXTREMITIES: No clubbing, mild lower extremity edema, no cyanosis, 2+ pulses and upper and lower extremities. MUSCULOSKELETAL: Muscle strength and tone normal. SPINE: No scoliosis or deformity SKIN: No rashes CENTRAL NERVOUS SYSTEM: Alert and oriented -3. No focal deficits, tone is normal in all 4 extremities. PSYCHIATRIC: Alert and oriented -3. Appropriate affect. Intact judgment and insight. - Labs CBC & Chem 7: 04/14/19 05:38 04/14/19 05:38 Labs: Abnormal Lab Results - Last 24 Hours (Table) 04/14/19 04/14/19 Range/Units 05:38 05:38 WBC 11.1 H (3.8-10.6) k/uL RBC 2.97 L (4.30-5.90) m/uL Hgb 10.5 L (13.0-17.5) gm/dL Hct 31.7 L (39.0-53.0) % MCV 106.7 H (80.0-100.0) fL MCH 35.2 H (25.0-35.0) pg BUN 62 H (9-20) mg/dL Creatinine 5.61 H (0.66-1.25) mg/dL Glucose 106 H (74-99) mg/dL Microbiology - Last 24 Hours (Table) 04/11/19 01:39 Blood Culture - Preliminary Blood No Growth after 72 hours Assessment and Plan Plan: Assessment: 1 acute multilobar pneumonia secondary to E. coli 2 acute hypoxic respiratory failure secondary to above. And secondary to fluid overload secondary to renal failure. 3 acute sepsis with secondary hypotension and septic shock secondary to E. coli pneumonia. 4 and stage renal disease, on hemodialysis. 5 chronic systolic congestive heart failure, ejection fraction 45% 6 history of underlying COPD 7 chronic atrial fibrillation 8 dyslipidemia. 9 intermittent episodes of hypotension in spite of multiple meds given for low blood pressure, however patient has no clinical symptoms with lower blood pressure, and did not require placement back on norepinephrine. Plan: Patient is doing well, he is having on the hemodialysis treatment done today, there have been no fever and chills, continues on IV antibiotics for E. coli pneumonia, clinical stable, improving, participating with therapy. From pulmonary perspective patient is stable for discharge to subacute rehab today or tomorrow I performed a history & physical examination of the patient and discussed their management with my nurse practitioner, Mariela Irene. I reviewed the nurse practitioner's note and agree with the documented findings and plan of care. Lung sounds are positive for diminished breath sounds. The findings and the impression was discussed with the patient. I attest to the documentation by the nurse practitioner. Time with Patient: Less than 30
--- NOTE | 2019-04-14 15:45 | P.DS ---
Providers Date of admission: 04/02/19 09:31 Expected date of discharge: 04/14/19 Attending physician: Samir Read Consults: 04/02/19 09:30 Consult Physician Urgent Consulting Provider: Jakub Thompson Consult Reason/Comments: crf Do you want consulting provider notified?: Already Contacted Consult Physician Urgent Consulting Provider: Gil Guzman Consult Reason/Comments: pulmonary edema Do you want consulting provider notified?: Yes 04/02/19 09:31 Consult Physician Stat Consulting Provider: Eduardo Horton Consult Reason/Comments: Critical care, pulmonary edema and hypotension Do you want consulting provider notified?: Already Contacted Primary care physician: Vaibhav Ortiz [place] [facility] Course: Final Diagnosis Acute bilateral multifocal pneumonia with septic shock and hypotension, present on admission Acute hypoxic respiratory failure present on admission Congestive heart failure acute exacerbation with acute on chronic systolic dysfunction, ejection fraction 45-50% Chronic hypotension 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 Patient will be following up with primary care provider Dr. Ortiz upon discharge. Patient will also be following up with nephrology and cardiology in one week. Patient will continue on dialysis Wednesday/Wednesday/Wednesday. Patient will also continue short course of oral antibiotics in the form of Ceftin 500 mg twice daily for 5 days. Total time taken is 35 minutes. History of present illness This is an 83-year-old male who was recently admitted for acute bilateral multifocal pneumonia also found to have significant hypotension and was currently being monitored. Patient was being closely followed in the ICU and most recently transitioned to selective unit. Patient continue to have low blood pressure and was on multiple drips including levophed along with Midodrine and will continue with Midodrine, Cortef, and Florinef in the outpatient setting. Patient continued with dialysis treatment and will continue on the Wednesday/Wednesday/Wednesday schedule. Patient's sputum culture was positive for E. coli and patient will continue a short course of oral antibiotics in the form of Ceftin for 5 days. Patient continued working with PT/OT and recommend continuing in the outpatient setting with home care. Discussed with the patient and family at length about continuing to encourage activity as tolerated along with the use of incentive spirometer at least 10 times every hour while awake. Currently patient's condition is stable and is ready for discharge today. Patient was adamant about refusing any form of rehab upon discharge and patient will be going home and having Homecare. Patient denies any chest pain, shortness of breath, or palpitations. Patient is afebrile. Patient denies any nausea or vomiting and has been tolerating diet. Patient is to maintain aspiration precautions as well. Guarded prognosis. On Exam vital signs are stable. Temp is 98F, pulse is 84, respirations are 18, blood pressure is 100/58, oxygen saturation is 93% on room air. Cardio S1, S2 are muffled. Respiratory system shows diminished breath sounds at the bases with no wheezing or crackles noted. Abdomen is soft, obese, nontender. Nervous system shows no focal deficits. Please refer to medication reconciliation sheet for a list of medications. Patient Condition at Discharge: Critical Plan - Discharge Summary Discharge Rx Participant: No New Discharge Prescriptions: New Fludrocortisone [Florinef] 0.2 mg PO BID 30 Days #60 tab Folic Acid 1 mg PO DAILY@1200 30 Days #30 tab Multivitamins, Thera [Multivitamin (formulary)] 1 each PO DAILY@1200 30 Days #30 tab Thiamine [Vitamin B-1] 100 mg PO DAILY@1200 30 Days #30 tab Cefuroxime Axetil [Ceftin] 500 mg PO BID 5 Days #10 tab Continue rOPINIRole HCL [Requip] 4 mg PO TID Prorenal + D 1 tab PO DAILY levOCARNitine [Levocarnitine] 330 mg PO TID-W/MEALS guaiFENesin [Mucinex] 600 mg PO Q12HR PRN tablet.er PRN Reason: Cough Brimonidine Tartrate [Alphagan P 0.1% Ophth Soln] 1 drop BOTH EYES BID #1 bottle Tamsulosin HCl [Flomax] 0.4 mg PO BID #60 cap Gabapentin [Neurontin] 100 mg PO TID #9 cap Pravastatin Sodium [Pravachol] 20 mg PO HS #30 tab Midodrine [ProAmatine] 10 mg PO AC-TID #180 tab Carbidopa-Levodopa 25-100 mg [Sinemet 25-100 mg] 1 tab PO BID #60 tab Budesonide-Formot 160-4.5 Mcg [Symbicort 160-4.5 Mcg Inhaler] 2 puff INHALATION RT-BID #1 inh Timolol 0.5% Ophth Soln [Timoptic 0.5% Ophth Soln] 1 drop BOTH EYES DAILY #1 bottle Allopurinol [Zyloprim] 100 mg PO HS #30 tab Iron-27mg 27 mg PO DAILY levETIRAcetam [Keppra] 250 mg PO HS Magnesium Oxide [Reed] 500 mg PO DAILY Vit A/Vit C/Vit E/Zinc/Copper [ICAPS SOFTGEL] 1 cap PO DAILY Docusate [Colace] 100 mg PO DAILY Ipratropium-Albuterol Nebulize [Duoneb 0.5 mg-3 mg/3 ml Soln] 3 ml INHALATION RT-QID Changed Hydrocortisone [Cortef] 20 mg PO BID 30 Days #60 tab Discontinued Furosemide [Lasix] 80 mg PO BID@0900,1600 #60 tab Discharge Medication List rOPINIRole HCL [Requip] 4 mg PO TID 12/27/17 [History] Prorenal + D 1 tab PO DAILY 01/24/19 [History] levOCARNitine [Levocarnitine] 330 mg PO TID-W/MEALS 01/24/19 [History] guaiFENesin [Mucinex] 600 mg PO Q12HR PRN tablet.er 02/15/19 [Rx] Allopurinol [Zyloprim] 100 mg PO HS #30 tab 03/02/19 [Rx] Brimonidine Tartrate [Alphagan P 0.1% Ophth Soln] 1 drop BOTH EYES BID #1 bottle 03/02/19 [Rx] Budesonide-Formot 160-4.5 Mcg [Symbicort 160-4.5 Mcg Inhaler] 2 puff INHALATION RT-BID #1 inh 03/02/19 [Rx] Carbidopa-Levodopa 25-100 mg [Sinemet 25-100 mg] 1 tab PO BID #60 tab 03/02/19 [Rx] Gabapentin [Neurontin] 100 mg PO TID #9 cap 03/02/19 [Rx] Midodrine [ProAmatine] 10 mg PO AC-TID #180 tab 03/02/19 [Rx] Pravastatin Sodium [Pravachol] 20 mg PO HS #30 tab 03/02/19 [Rx] Tamsulosin HCl [Flomax] 0.4 mg PO BID #60 cap 03/02/19 [Rx] Timolol 0.5% Ophth Soln [Timoptic 0.5% Ophth Soln] 1 drop BOTH EYES DAILY #1 bottle 03/02/19 [Rx] Docusate [Colace] 100 mg PO DAILY 04/02/19 [History] Ipratropium-Albuterol Nebulize [Duoneb 0.5 mg-3 mg/3 ml Soln] 3 ml INHALATION RT-QID 04/02/19 [History] Iron-27mg 27 mg PO DAILY 04/02/19 [History] Magnesium Oxide [Reed] 500 mg PO DAILY 04/02/19 [History] Vit A/Vit C/Vit E/Zinc/Copper [ICAPS SOFTGEL] 1 cap PO DAILY 04/02/19 [History] levETIRAcetam [Keppra] 250 mg PO HS 04/02/19 [History] Cefuroxime Axetil [Ceftin] 500 mg PO BID 5 Days #10 tab 04/14/19 [Rx] Fludrocortisone [Florinef] 0.2 mg PO BID 30 Days #60 tab 04/14/19 [Rx] Folic Acid 1 mg PO DAILY@1200 30 Days #30 tab 04/14/19 [Rx] Hydrocortisone [Cortef] 20 mg PO BID 30 Days #60 tab 04/14/19 [Rx] Multivitamins, Thera [Multivitamin (formulary)] 1 each PO DAILY@1200 30 Days #30 tab 04/14/19 [Rx] Thiamine [Vitamin B-1] 100 mg PO DAILY@1200 30 Days #30 tab 04/14/19 [Rx] Follow up Appointment(s)/Referral(s): Vaibhav Oritz MD [Primary Care Provider] - 1-2 days (april 18 at 2:15) [facility], [NON-STAFF] - 1-2 Days Jakub Thompson DO [STAFF PHYSICIAN] - 1 Week (well follow up tomorrow at dialysis) Kevin Serrano MD [STAFF PHYSICIAN] - 1 Week (april 20 at 10:00) Patient Instructions/Handouts: Pulmonary Edema (DC), Hypotension (DC), Hemodialysis (DC) Activity/Diet/Wound Care/Special Instructions: Activity Limited until follow-up Continue with home care Follow up with primary care provider upon discharge Continue with dialysis Wednesday/Wednesday/Wednesday Continue current diet Complete antibiotics Ceftin for 5 days until finished Discharge Disposition: HOME WITH HOME HEALTH SERVICES
--- NOTE | 2019-04-14 16:05 | PN ---
PROGRESS NOTE Patient is seen for followup for end-stage renal disease. He is currently seen on hemodialysis. He is tolerating his treatment well. Goal UF is about 2.5 L. PHYSICAL EXAMINATION: On examination, blood pressure this morning was 100/58, heart rate 84 per minute. He is afebrile. EXAMINATION OF THE HEART: S1 and S2. EXAMINATION OF LUNGS: Decreased breath sounds at bases. ABDOMEN: Soft, non-tender. Examination of lower extremities shows 1+ edema bilaterally, mainly in the ankles. [employer] exam is grossly intact. LABS: Hemoglobin 10.5, potassium 4.6, sodium 140. ASSESSMENT: 1. End-stage renal disease, on hemodialysis on a Wednesday, Wednesday, Wednesday schedule. 2. Volume overload, currently improved. 3. Generalized debility. 4. Congestive heart failure, chronic, now improved. 5. Cardiomyopathy; ejection fraction 45% to 50%. 6. Pneumonia with sputum culture growing Escherichia coli. PLAN: Next dialysis on Wednesday as outpatient. Patient is stable for discharge from nephrology standpoint post dialysis. MMODL / IJN: [id number] /
== END 2019-04-14 14:52 | disposition home health service (06) | DRG 871 ==
LOC: EC 07:28 → 2SICU 09:31 → 3SCARD 04-13 17:00
PROVIDERS: ADMIT Internal Medicine; ATTEND Internal Medicine
PROC: 5A09357 Assistance with Respiratory Ventilation, Less than 24 Consecutive Hours, Continuous Positive Airway Pressure (ICD-10-PCS; principal; 2019-04-02)
PROC: 05HY33Z Insertion of Infusion Device into Upper Vein, Percutaneous Approach (ICD-10-PCS; 2019-04-02)
PROC: 5A1D70Z Performance of Urinary Filtration, Intermittent, Less than 6 Hours Per Day (ICD-10-PCS; 2019-04-02)
DX: A41.51 Sepsis due to Escherichia coli [E. coli] (principal); I50.23 Acute on chronic systolic (congestive) heart failure; J15.5 Pneumonia due to Escherichia coli; J96.01 Acute respiratory failure with hypoxia; N18.6 End stage renal disease; R65.21 Severe sepsis with septic shock; E44.0 Moderate protein-calorie malnutrition; E87.1 Hypo-osmolality and hyponatremia; I13.2 Hypertensive heart and chronic kidney disease with heart failure and with stage 5 chronic kidney disease, or end stage renal disease; I42.9 Cardiomyopathy, unspecified; I48.19 Other persistent atrial fibrillation; J44.0 Chronic obstructive pulmonary disease with (acute) lower respiratory infection; J84.9 Interstitial pulmonary disease, unspecified; J98.11 Atelectasis; E27.40 Unspecified adrenocortical insufficiency; I95.89 Other hypotension; E87.5 Hyperkalemia; G20 Parkinson's disease; I27.20 Pulmonary hypertension, unspecified; R13.13 Dysphagia, pharyngeal phase; D64.9 Anemia, unspecified; E66.9 Obesity, unspecified; E78.5 Hyperlipidemia, unspecified; H35.30 Unspecified macular degeneration; H91.90 Unspecified hearing loss, unspecified ear; E83.89 Other disorders of mineral metabolism; R29.6 Repeated falls; H40.9 Unspecified glaucoma; R26.9 Unspecified abnormalities of gait and mobility; R49.0 Dysphonia; Z68.26 Body mass index [BMI] 26.0-26.9, adult; Z79.51 Long term (current) use of inhaled steroids; Z79.899 Other long term (current) drug therapy; Z99.2 Dependence on renal dialysis; Z87.891 Personal history of nicotine dependence; Z80.9 Family history of malignant neoplasm, unspecified; Z82.49 Family history of ischemic heart disease and other diseases of the circulatory system; Z82.5 Family history of asthma and other chronic lower respiratory diseases
CPT/HCPCS: 36415; 36556; 70490; 71045; 71046; 71250; 80048; 80053; 82533; 83605; 83735; 83880; 84443; 84484; 85025; 85027; 85610; 85730; 87040; 87070; 87077; 87186; 87205; 87324; 90935; 93005; 93306; 93970; 94640; 94660; 94760; 96360; 96361; 99291

== ENCOUNTER 2019-05-08 12:09 | Inpatient (IN) | payer MEDICARE ==
--- NOTE | 2019-05-08 12:30 | ED ---
General Adult HPI - General Chief complaint: Altered Mental Status Stated complaint: DARA Time Seen by Provider: 05/08/19 12:12 Source: patient, EMS, RN notes reviewed Mode of arrival: EMS Limitations: physical limitation - History of Present Illness Initial comments: Patient is a pleasant 83-year-old male presenting to the emergency Department with general weakness and decreased responsiveness. Patient reportedly was refused at dialysis yesterday because his blood pressure was too low. Family called EMS today. EMS found patient to be drowsy and less responsive. Blood pressure was 62. Patient received 2-3 L of IV fluid with blood pressure up to 80 and patient more responsive. Patient denies any complaints at this time. Patient denies any shortness of breath. Patient is a poor historian. - Related Data Home Medications Medication Instructions Recorded Confirmed rOPINIRole HCL [Requip] 4 mg PO TID 12/27/17 05/08/19 Prorenal + D 1 tab PO DAILY 01/24/19 05/08/19 levOCARNitine [Levocarnitine] 330 mg PO TID-W/MEALS 01/24/19 05/08/19 Docusate [Colace] 100 mg PO DAILY 04/02/19 05/08/19 Ipratropium-Albuterol Nebulize 3 ml INHALATION RT-QID 04/02/19 05/08/19 [Duoneb 0.5 mg-3 mg/3 ml Soln] Iron-27mg 27 mg PO DAILY 04/02/19 05/08/19 Magnesium Oxide [Reed] 500 mg PO DAILY 04/02/19 05/08/19 Vit A/Vit C/Vit E/Zinc/Copper 1 cap PO DAILY 04/02/19 05/08/19 [ICAPS SOFTGEL] levETIRAcetam [Keppra] 250 mg PO HS 04/02/19 05/08/19 Brimonidine Tartrate [Alphagan P 1 drop BOTH EYES Q8H 05/08/19 05/08/19 0.1% Ophth Soln] Furosemide [Lasix] 240 mg PO DAILY 05/08/19 05/08/19 Multivitamins, Thera [Multivitamin 1 tab PO DAILY@1200 05/08/19 05/08/19 (formulary)] guaiFENesin [Mucinex] 600 mg PO Q12HR PRN 05/08/19 05/08/19 Previous Rx's Medication Instructions Recorded Allopurinol [Zyloprim] 100 mg PO HS #30 tab 03/02/19 Budesonide-Formot 160-4.5 Mcg 2 puff INHALATION RT-BID #1 inh 03/02/19 [Symbicort 160-4.5 Mcg Inhaler] Carbidopa-Levodopa 25-100 mg 1 tab PO BID #60 tab 03/02/19 [Sinemet 25-100 mg] Gabapentin [Neurontin] 100 mg PO TID #9 cap 03/02/19 Midodrine [ProAmatine] 10 mg PO AC-TID #180 tab 03/02/19 Pravastatin Sodium [Pravachol] 20 mg PO HS #30 tab 03/02/19 Tamsulosin HCl [Flomax] 0.4 mg PO BID #60 cap 03/02/19 Timolol 0.5% Ophth Soln [Timoptic 1 drop BOTH EYES DAILY #1 bottle 03/02/19 0.5% Ophth Soln] Fludrocortisone [Florinef] 0.2 mg PO BID 30 Days #60 tab 04/14/19 Folic Acid 1 mg PO DAILY@1200 30 Days #30 tab 04/14/19 Hydrocortisone [Cortef] 20 mg PO BID 30 Days #60 tab 04/14/19 Thiamine [Vitamin B-1] 100 mg PO DAILY@1200 30 Days #30 04/14/19 tab Allergies Allergy/AdvReac Type Severity Reaction Status Date / Time No Known Allergies Allergy Verified 05/08/19 14:21 Review of Systems ROS Statement: Those systems with pertinent positive or pertinent negative responses have been documented in the HPI. ROS Other: All systems not noted in ROS Statement are negative. Constitutional: Denies: fever Eyes: Denies: eye pain ENT: Denies: ear pain Respiratory: Reports: as per HPI Cardiovascular: Denies: chest pain Endocrine: Reports: fatigue Gastrointestinal: Denies: abdominal pain Genitourinary: Denies: dysuria Musculoskeletal: Denies: back pain Skin: Denies: rash Neurological: Reports: as per HPI Past Medical History Past Medical History: Atrial Fibrillation, COPD, Hyperlipidemia, Hypertension, Renal Disease Additional Past Medical History / Comment(s): HAS HEMODIALYSIS - MON,WED, FRI , GLAUCOMA,MACULAR DEGENERATION History of Any Multi-Drug Resistant Organisms: None Reported Past Surgical History: Hernia Repair Additional Past Surgical History / Comment(s): Mastoid surgery X3 Past Anesthesia/Blood Transfusion Reactions: Previous Problems w/ Anesthesia Additional Past Anesthesia/Blood Transfusion Reaction / Comment(s): STATES TOOK LONGER WAKING UP Past Psychological History: No Psychological Hx Reported Smoking Status: Former smoker Past Alcohol Use History: None Reported Past Drug Use History: None Reported - Past Family History Sister(s) Family Medical History: Cancer Son(s) Family Medical History: Cancer Father Family Medical History: Asthma Mother Family Medical History: Hypertension General Exam Limitations: physical limitation General appearance: alert Head exam: Present: normocephalic Eye exam: Present: normal appearance ENT exam: Present: normal oropharynx Neck exam: Present: normal inspection Respiratory exam: Present: rales Cardiovascular Exam: Present: regular rate, irregular rhythm GI/Abdominal exam: Present: soft, distended. Absent: tenderness Extremities exam: Present: pedal edema. Absent: calf tenderness Back exam: Present: normal inspection Neurological exam: Present: alert, oriented X3 Expanded Motor strength exam: RUE: 5, LUE: 5, RLE: 3, LLE: 3 Eye Response: (4) open spontaneously Motor Response: (6) obeys commands Verbal Response: (5) oriented Psychiatric exam: Present: normal affect, normal mood Skin exam: Present: normal color Course Vital Signs 05/08/19 05/08/19 12:19 12:51 Temperature 98.0 F Pulse Rate 66 63 Respiratory 20 20 Rate Blood Pressure 82/57 85/61 O2 Sat by Pulse 98 100 Oximetry - Reevaluation(s) Reevaluation #1: 05/08/19 13:32 cAce was discussed with Dr. Sun who did come evaluate patient. 05/08/19 14:50 Patient reevaluated after having some difficulty in breathing. Lung sounds with rales. Patient does not appear in respiratory distress however. Dialysis is present and about to start. Patient will be placed on BiPAP. EKG shows irregular narrow consults rhythm with a rate of 90. QRS 86. QT 342. QTC 418. Right axis. Low QRS voltage. No acute ST change. 05/08/19 15:01 Case was also discussed with Dr. More, who will admit EKG Findings - EKG Comments: EKG Findings:: A. fib with rate of 61. QRS 84. QT 424. QTC 426. Right axis. Normal QRS. No acute ST change. Procedures - Central Line Placement Left SC Consent Obtained: verbal consent, emergent situation Patient Placed on Monitor/Pulse Ox: Yes Prep: mask, gown, gloves Central Line Prep: Chlorhexidine scrub Local Anesthesia Used: Lidocaine 1% Complications: none, other (Unable to obtain vascular assess and procedure discontinued in this area) Right Femoral Consent Obtained: verbal consent, emergent situation Patient Placed on Monitor/Pulse Ox: Yes MD Prep: mask, gown, gloves Central Line Prep: Chlorhexidine scrub Local Anesthesia Used: Lidocaine 1% Central Line Lumen Inserted: triple Central Line Position: good blood return, all ports aspirated, flushed, capped, sutured in place with 3-0 nylon Dressing Applied: Tegaderm Patient Tolerated Procedure: well Complications: none Medical Decision Making - Lab Data Result diagrams: 05/08/19 12:23 05/08/19 12:23 Lab Results 05/08/19 05/08/19 05/08/19 Range/Units 12:23 12:23 12:23 WBC 5.7 (3.8-10.6) k/uL RBC 2.95 L (4.30-5.90) m/uL Hgb 10.2 L (13.0-17.5) gm/dL Hct 31.9 L (39.0-53.0) % MCV 107.9 H (80.0-100.0) fL MCH 34.7 (25.0-35.0) pg MCHC 32.2 (31.0-37.0) g/dL RDW 14.6 (11.5-15.5) % Plt Count 113 L (150-450) k/uL Neutrophils % 80 % Lymphocytes % 12 % Monocytes % 5 % Eosinophils % 2 % Basophils % 0 % Neutrophils # 4.5 (1.3-7.7) k/uL Lymphocytes # 0.7 L (1.0-4.8) k/uL Monocytes # 0.3 (0-1.0) k/uL Eosinophils # 0.1 (0-0.7) k/uL Basophils # 0.0 (0-0.2) k/uL Manual Slide Review Performed Macrocytosis Marked A PT (9.0-12.0) sec INR (<1.2) APTT (22.0-30.0) sec Sodium 136 L (137-145) mmol/L Potassium 4.2 (3.5-5.1) mmol/L Chloride 97 L (98-107) mmol/L Carbon Dioxide 32 H (22-30) mmol/L Anion Gap 7 mmol/L BUN 42 H (9-20) mg/dL Creatinine 3.91 H (0.66-1.25) mg/dL Est GFR (CKD-EPI)AfAm 15 (>60 ml/min/1.73 sqM) Est GFR (CKD-EPI)NonAf 13 (>60 ml/min/1.73 sqM) Glucose 123 H (74-99) mg/dL Plasma Lactic Acid Jack 1.2 (0.7-2.0) mmol/L Calcium 9.0 (8.4-10.2) mg/dL Phosphorus 3.5 (2.5-4.5) mg/dL Magnesium 2.3 (1.6-2.3) mg/dL Total Bilirubin 1.0 (0.2-1.3) mg/dL AST 21 (17-59) U/L ALT <6 (4-49) U/L Alkaline Phosphatase 100 (38-126) U/L Creatine Kinase <20 L (55-170) U/L Troponin I (0.000-0.034) ng/mL NT-Pro-B Natriuret Pep pg/mL Total Protein 5.5 L (6.3-8.2) g/dL Albumin 2.7 L (3.5-5.0) g/dL TSH 1.790 (0.465-4.680) mIU/L 05/08/19 05/08/19 05/08/19 Range/Units 12:23 12:23 12:23 WBC (3.8-10.6) k/uL RBC (4.30-5.90) m/uL Hgb (13.0-17.5) gm/dL Hct (39.0-53.0) % MCV (80.0-100.0) fL MCH (25.0-35.0) pg MCHC (31.0-37.0) g/dL RDW (11.5-15.5) % Plt Count (150-450) k/uL Neutrophils % % Lymphocytes % % Monocytes % % Eosinophils % % Basophils % % Neutrophils # (1.3-7.7) k/uL Lymphocytes # (1.0-4.8) k/uL Monocytes # (0-1.0) k/uL Eosinophils # (0-0.7) k/uL Basophils # (0-0.2) k/uL Manual Slide Review Macrocytosis PT 11.0 (9.0-12.0) sec INR 1.0 (<1.2) APTT 30.3 H (22.0-30.0) sec Sodium (137-145) mmol/L Potassium (3.5-5.1) mmol/L Chloride (98-107) mmol/L Carbon Dioxide (22-30) mmol/L Anion Gap mmol/L BUN (9-20) mg/dL Creatinine (0.66-1.25) mg/dL Est GFR (CKD-EPI)AfAm (>60 ml/min/1.73 sqM) Est GFR (CKD-EPI)NonAf (>60 ml/min/1.73 sqM) Glucose (74-99) mg/dL Plasma Lactic Acid Jack (0.7-2.0) mmol/L Calcium (8.4-10.2) mg/dL Phosphorus (2.5-4.5) mg/dL Magnesium (1.6-2.3) mg/dL Total Bilirubin (0.2-1.3) mg/dL AST (17-59) U/L ALT (4-49) U/L Alkaline Phosphatase (38-126) U/L Creatine Kinase (55-170) U/L Troponin I 0.045 H* (0.000-0.034) ng/mL NT-Pro-B Natriuret Pep 737115 pg/mL Total Protein (6.3-8.2) g/dL Albumin (3.5-5.0) g/dL TSH (0.465-4.680) mIU/L - Radiology Data Radiology results: image reviewed (Chest x-ray shows multifocal patchy opacities. Consider pneumonia or pulmonary edema. Cardiomegaly) Critical Care Time Critical Care Time: Yes Total Critical Care Time: 34 Disposition Clinical Impression: Hypotension, Pulmonary edema Disposition: ADMITTED IP TO THIS [facility] Condition: Critical Is patient prescribed a controlled substance at d/c from ED?: No Referrals: Vaibhav Ortiz MD [Primary Care Provider] - 1-2 days Decision Time: 15:01
[2019-05-08 13:11] LABS: ALT <6 U/L (4-49); AST 21 U/L (17-59); African American GFR (CKD) 15 (>60 ml/min/1.73 sqM); Albumin 2.7 g/dL (3.5-5.0); Alkaline Phosphatase 100 U/L (38-126); Anion Gap 7 mmol/L; Blood Urea Nitrogen 42 mg/dL (9-20); Carbon Dioxide 32 mmol/L (22-30); Chloride 97 mmol/L (98-107); Creatine Kinase <20 U/L (55-170); Glucose 123 mg/dL (74-99); Magnesium 2.3 mg/dL (1.6-2.3); Non-African American GFR(CKD) 13 (>60 ml/min/1.73 sqM); Phosphorus 3.5 mg/dL (2.5-4.5); Potassium 4.2 mmol/L (3.5-5.1); Sodium 136 mmol/L (137-145); Total Protein 5.5 g/dL (6.3-8.2)
[2019-05-08 13:13] LABS: Partial Thromboplastin Time 30.3 sec (22.0-30.0)
[2019-05-08 13:37] LABS: Basophils % (A) 0 %; Eosinophils # (A) 0.1 k/uL (0-0.7); Eosinophils % (A) 2 %; HCT 31.9 % (39.0-53.0); HGB 10.2 gm/dL (13.0-17.5); Lymphocytes # (A) 0.7 k/uL (1.0-4.8); Lymphocytes % (A) 12 %; MCH 34.7 pg (25.0-35.0); MCHC 32.2 g/dL (31.0-37.0); MCV 107.9 fL (80.0-100.0); Macrocytosis Marked; Mean Platelet Volume 8.9; Monocytes # (A) 0.3 k/uL (0-1.0); Monocytes % (A) 5 %; Neutrophils # (A) 4.5 k/uL (1.3-7.7); Neutrophils % (A) 80 %; Platelet Count 113 k/uL (150-450); RBC 2.95 m/uL (4.30-5.90); RDW 14.6 % (11.5-15.5); WBC 5.7 k/uL (3.8-10.6)
[2019-05-08] MEDS: NOREPINEPHRINE 32 MG in SODIUM CHLORIDE 0.9% 218 ML IV SCH (13:48)
--- NOTE | 2019-05-08 13:55 | XR ---
EXAMINATION TYPE: XR chest 1V portable DATE OF EXAM: 05/08/2019 COMPARISON: 04/11/2019 HISTORY: Shortness of breath. TECHNIQUE: Single frontal view of the chest is obtained. FINDINGS: There are new multifocal patchy opacities throughout both lungs. There is a similar small layering left pleural effusion and retrocardiac opacity in comparison to the prior. Left central line has been removed. Diffuse osseous demineralization is seen. Cardia mediastinal silhouette is enlarge d. Very trace right pleural effusion is noted blunting the costophrenic angle. IMPRESSION: New multifocal patchy opacities. Primary diagnostic consideration is for pneumonia altho ugh confluent pulmonary edema is possible given the small left pleural effusion and trace right pleur al effusion with cardiomegaly.
[2019-05-08] MEDS ORDERED: NALOXONE 0.4 MG/ML 1 ML VIAL IV PRN (15:02)
[2019-05-08] MEDS ORDERED: IPRATROPIUM-ALBUTEROL 3 ML NEB INHALATION PRN (15:02)
[2019-05-08] MEDS: IPRATROPIUM-ALBUTEROL 3 ML NEB INHALATION SCH ×2 (16:23→21:09)
[2019-05-08] MEDS: SODIUM CHLORIDE 0.9% 1,000 ML IV SCH (16:37)
[2019-05-08] MEDS: HYDROCORTISONE SUCCINATE 100 MG/2 ML VIAL IV SCH ×2 (16:38→23:24)
[2019-05-08 17:45] LABS: Glucose,Whole Blood 117 mg/dL (75-99)
[2019-05-08] MEDS: PIPERACILLIN-TAZOBACTAM 3.375 GM in SODIUM CHLORIDE 0.9% 100 ML IVPB SCH (18:30)
[2019-05-08] MEDS: MIDODRINE 5 MG TAB PO SCH (18:30)
[2019-05-08] MEDS: levOCARNitine (WITH SUGAR) 100 MG/ML BOTTLE PO SCH (18:56)
[2019-05-08] MEDS ORDERED: LACTULOSE 20 GM/30 ML CUP PO PRN (19:11)
--- NOTE | 2019-05-08 21:01 | HP ---
HISTORY AND PHYSICAL DATE OF SERVICE: 05/08/2019 CHIEF COMPLAINT: Shortness of breath. HISTORY OF PRESENT ILLNESS: This 83-year-old gentleman with a past medical history of COPD, history of atrial fibrillation, hypertension, hyperlipidemia, history of hemodialysis, being followed by Dr. Ortiz in the outpatient setting, was recently admitted with multiple medical issues, including bibasilar pneumonia, sepsis, CHF and other medical issues. The patient is on hemodialysis. Apparently the hemodialysis could not be completely done yesterday because of hypotension only a 2-hour session was done. Today the patient is complaining of increasing shortness of breath, some drowsiness. The patient came to [facility]. CHF was diagnosed. Urgent hemodialysis is being initiated at this time. Otherwise, the patient also had significant bilateral leg edema which is fluctuating, according to the family. There is no history of any fever, rigor or chills. No history of headache, loss of consciousness, seizures at this time. The patient received about 2 to 3 liters of IV fluids for hypotension, after which the blood pressure improved as well. The patient was also on BiPAP initially. White count is normal. Creatinine is 3.91. Troponin is elevated at 0.045. BNP is 116,000. PAST MEDICAL HISTORY: 1. History of CHF. 2. COPD. 3. History of atrial fibrillation. 4. History of hypertension. 5. Hyperlipidemia. 6. History of hemodialysis. HOME MEDICATIONS: 1. Multivitamins 1 p.o. daily. 2. Magnesium oxide 500 mg p.o. daily. 3. Levocarnitine 330 mg p.o. t.i.d. 4. Keppra 250 mg at bedtime. 5. I-Caps p.o. daily. 6. Vitamin B1 100 mg p.o. daily. 7. Iron 27 mg p.o. daily. 8. Folic acid 1 mg p.o. daily. 9. Florinef 0.2 b.i.d. 10.Mucinex 600 mg p.o. b.i.d. 11.Prorenal + D one p.o. daily. 12.Requip 4 mg p.o. t.i.d. 13.Timoptic 1 drop daily. 14.Flomax 0.4 daily. 15.Carbidopa/L-dopa 1 tablet p.o. b.i.d. 16.Symbicort 160/4.5 two puffs b.i.d. 17.Pravachol 20 mg at bedtime. 18.ProAmatine 10 mg before meals t.i.d. 19.Lasix 240 mg p.o. daily. 20.DuoNeb q.i.d. 21.Neurontin 100 mg p.o. t.i.d. 22.Cortef 20 mg p.o. b.i.d. 23.Colace 100 mg p.o. daily. 24.Alphagan 1 drop q.8. 25.Zyloprim 100 mg at bedtime. ALLERGIES: NONE. FAMILY HISTORY: History of asthma in the family. SOCIAL HISTORY: Previous history of previous smoking. No history of alcohol intake. REVIEW OF SYSTEMS: ENT: Diminished hearing. Diminished vision. CARDIOVASCULAR SYSTEM: As mentioned earlier. RESPIRATORY SYSTEM: As mentioned earlier. GI: As mentioned earlier. : As mentioned earlier. NERVOUS SYSTEM: No numbness, weakness. ALLERGY/IMMUNOLOGY: No asthma, hayfever. MUSCULOSKELETAL: As mentioned earlier. HEMATOLOGY/ONCOLOGY: No history of anemia. ENDOCRINE: As mentioned earlier. CONSTITUTIONAL: As mentioned earlier. DERMATOLOGY: Negative. RHEUMATOLOGY: Negative. PSYCHIATRY: As mentioned earlier. PHYSICAL EXAMINATION: Patient alert and oriented x3. Pulse 69, blood pressure 98/63, improved, respiration 19, temperature 98 degrees, pulse ox 100% on BiPAP 50% FiO2. HEENT: Conjunctivae normal. Oral mucosa moist. NECK: No jugular venous distention. No carotid bruit. No lymph node enlargement. CARDIOVASCULAR SYSTEM: S1, S2 muffled. Ejection systolic murmur present. RESPIRATORY SYSTEM: Breath sounds diminished at the bases. A few scattered rhonchi and crackles. ABDOMEN: Soft, obese, non-tender. LEGS: Bilateral leg edema. NERVOUS SYSTEM: Higher functions as mentioned earlier. Moves all 4 limbs. No focal motor or sensory deficit. LYMPHATICS: No lymph node palpable in neck, axillae or groin. SKIN: No ulcer, rash, bleeding. JOINTS: No active deforming arthropathy. LABS: Labs at this time show WBC 5.7, hemoglobin 10.2, sodium 136, potassium 4.2. Creatinine 3.1. Other labs are noted. Troponin 0.045. NT-proBNP noted. Albumin is 2.7. ASSESSMENT: 1. Congestive heart failure, acute exacerbation, with acute on chronic systolic dysfunction, ejection fraction 45% to 50%, with acute hypoxic hypercarbic respiratory failure, on BiPAP. 2. Hypotension, possibly cardiogenic shock. Rule out sepsis. 3. Rule out bronchopneumonia. 4. Hyponatremia. 5. Troponin 0.05, indeterminate. Rule out acute ihs-[id number]-elevation myocardial infarction. 6. BNP elevated up to 116,000. 7. Hypoalbuminemia with mild to moderate protein-calorie malnutrition. 8. Anemia, macrocytic; anemia of chronic disease. 9. Thrombocytopenia. 10.History of atrial fibrillation. 11.History of chronic obstructive pulmonary disease. 12.Hyperlipidemia. 13.Hypertension. 14.History of chronic kidney disease, stage IV, on hemodialysis Wednesday, Wednesday, Wednesday. 15.Glaucoma. 16.Macular degeneration. 17.History of degenerative joint disease. 18.Remote history of nicotine dependence. 19.Gait dysfunction. 20.FULL CODE. RECOMMENDATIONS AND DISCUSSION: In this 83-year-old gentleman who presented with multiple complex medical issues, at this time I recommend to continue current medications, continue with symptomatic treatment. Otherwise, blood pressure is improved at this time. Hemodialysis is being carried out. Monitor fluid/electrolyte balance closely. I would also recommend empiric antibiotics. Septic process cannot be completely ruled out. I would recommend also a cardiology consultation because of elevated troponin and previous cardiac issues also. Otherwise, closely monitor with multiple consultants, including Dr. Horton from Pulmonology as well as Nephrology. Resume the home medications. Hold antihypertensive medications at this time. Further recommendations to follow. See orders for details. A copy of this dictation is being forwarded to Dr. Ortiz's office. MMODL / IJN: [id number] /
[2019-05-08] MEDS: SYMBICORT 160-4.5 MCG INHALER INHALATION SCH (21:09)
--- NOTE | 2019-05-08 22:11 | CONS ---
CONSULTATION DATE OF CONSULTATION: May 08, 2019 This is a patient who presents to the emergency room via EMS with hypotension and mental status changes. He has had multiple admissions to this hospital in recent weeks and months. He apparently was found to be very weak and had decreased responsiveness. He apparently went to dialysis and apparently because of mental status changes and hypotension, dialysis was refused. The patient called EMS. EMS was summoned to the hospital. They found the patient be very poorly responsive and very drowsy. The blood pressure systolic was 62. He received 2 to 3 L of IV fluids and blood pressure came up to 80. He was a bit more responsive. He apparently had no complaints in the emergency room. Dr. Aaron is in the process of placing a central line. He denied any shortness of breath. Denied any pain. He is not a particular good historian. He has been here many times. His last discharge from the hospital with on April 14 and his previous admission was right around on April 02. He is also here in February. HOME MEDICATIONS: Include Requip, Prorenal plus C, levocarnitine, Colace, DuoNeb iron 27, magnesium oxide, vitamins, Keppra, eyedrops, Lasix, multivitamins, Mucinex, Zyloprim, Symbicort, Sinemet, gabapentin, midodrine, pravastatin, Flomax, timolol, timolol eye drops, Florinef, folic acid, Cortef, and thiamine. ALLERGIES: Denied. PAST MEDICAL HISTORY: His past medical history is quite extensive and includes atrial fibrillation, COPD, hyperlipidemia, hypertension, end-stage renal disease with 3 time a week hemodialysis on Wednesday, Wednesday, Wednesday, glaucoma, macular degeneration, orthostatic hypotension, coma, among other things. SURGICAL HISTORY: Includes mastoid surgery times through 3, hernia repair and some other minor procedures. SOCIAL HISTORY: Positive for previous tobacco use. Denies any alcohol use or illicit drug use. FAMILY HISTORY: Positive for sister and a son both with cancer. Father with asthma and a mother with hypertension. REVIEW OF SYSTEMS: CONSTITUTIONAL weakness and fatigue and mental status changes. NEUROLOGIC: Mental status changes. HEENT negative. CARDIOVASCULAR: Hypotension. PULMONARY: Negative. GI negative. negative. RHEUMATOLOGIC negative. IMMUNOLOGIC negative ENDOCRINOLOGIC negative. DERMATOLOGIC negative. PHYSICAL EXAMINATION: VITAL SIGNS: Current vital signs include temperature, heart rate 63, respiratory rate 20, blood pressure in the mid 80s and for systolic mean about 65-69 mmHg and a saturation of 100% on nonrebreather. He is in no acute distress. Poor historian. No audible wheezing, use of accessory muscles or conversational dyspnea. HEENT examination is grossly unremarkable. Mask in place. NECK: Supple. Full range of motion. No adenopathy. Neck veins are flat. CARDIOVASCULAR examination reveals regular rhythm and rate. Heart rate 63. S1, S2 normal. No murmur. LUNGS: A few scattered rhonchi. No wheezes or crackles. Breath sounds equal. ABDOMEN: Obese. Bowel sounds are heard. EXTREMITIES are intact. Bilateral lower extremity edema is noted. No cyanosis or clubbing. SKIN: Has some areas of ecchymoses. NEUROLOGIC: Examination is brief but nonfocal. IMAGING PROCEDURE: A chest x-ray done on January 06 shows multifocal patchy opacities, possibly consistent with pneumonia. Pulmonary edema could also give a similar appearance. There is cardiomegaly. LAB DATA: Includes a white count 5.7, hemoglobin 10.2, hematocrit 31.9, platelet count 113,000. PT/INR normal. PTT 30.3. Sodium 136, potassium 4.2, chloride 97, CO2 32. Anion gap 7. BUN and creatinine were 42 and 3.91. N terminal proBNP is 116,000. Troponin was 0.045. CK was less than 20. Albumin 2.7. TSH 1.790. Chest x-ray in my opinion is consistent with bilateral infiltrates left greater than right. Small bilateral effusions, left greater than right and some mild cephalization. Medications are reviewed. Currently, the patient is only on updrafts with DuoNeb, Narcan, Levophed, Protonix, and an IV of saline at 20 mL an hour. ASSESSMENT: 1. Mental status changes, of unclear etiology. May relate to hypotension. 2. Hypotension, which may relate to underlying sepsis and/or infection, i.e. pneumonia. 3. Fluid overload based on patient's chest x-ray examination and very elevated N terminal proBNP. 4. End-stage renal disease, currently on 3 time a week hemodialysis. 5. Multiple admissions to the hospital for similar clinical presentations. 6. History of atrial fibrillation. 7. History of chronic obstructive pulmonary disease from previous tobacco use. 8. Hyperlipidemia. 9. History of hypertension. 10.History of macular degeneration. 11.History of glaucoma. PLAN: Please see my orders. We will put him on updrafts. Additional recommendations and suggestions are forthcoming. We will admit him to the ICU because of the hypotension. A central line was placed by Dr. Aaron. Additional recommendations and suggestions are forthcoming. Prognosis is poor. Code status should be addressed. MMODL / IJN: [id number] /
[2019-05-08] MEDS: FLUDROCORTISONE 0.1 MG TAB PO SCH (22:16)
[2019-05-08] MEDS: MELATONIN 3 MG TABLET PO SCH (22:17)
[2019-05-08] MEDS: PRAVASTATIN SODIUM 20 MG TAB PO SCH (22:17)
[2019-05-08] MEDS: rOPINIRole HCL 4 MG TABLET PO SCH (22:17)
[2019-05-08] MEDS: levETIRAcetam 250 MG TAB PO SCH (22:17)
[2019-05-08] MEDS: HEPARIN SODIUM,PORCINE 5,000 UNIT/ML 1 ML VIAL SQ SCH (22:18)
[2019-05-08] MEDS: ALPRAZolam 0.25 MG TAB PO SCH (22:18)
[2019-05-08] MEDS: TIMOLOL 0.5% OPHTH DROPS 5 ML BTL BOTH EYES SCH (22:19)
[2019-05-08] MEDS: GABAPENTIN 100 MG CAP PO SCH (22:19)
[2019-05-09] MEDS: guaiFENesin 600 MG TABLET.ER PO PRN (01:23)
[2019-05-09 05:10] LABS: Calcium 9.9 mg/dL (8.4-10.2)
[2019-05-09 05:29] LABS: Basophils % (A) 0 %; Eosinophils % (A) 0 %; HCT 33.8 % (39.0-53.0); HGB 10.8 gm/dL (13.0-17.5); Hypochromasia Slight; Lymphocytes # (A) 0.4 k/uL (1.0-4.8); Lymphocytes % (A) 7 %; MCH 34.9 pg (25.0-35.0); MCHC 31.9 g/dL (31.0-37.0); MCV 109.4 fL (80.0-100.0); Macrocytosis Marked; Mean Platelet Volume 8.5; Monocytes # (A) 0.2 k/uL (0-1.0); Monocytes % (A) 2 %; Neutrophils # (A) 5.4 k/uL (1.3-7.7); Neutrophils % (A) 90 %; Platelet Count 136 k/uL (150-450); RBC 3.09 m/uL (4.30-5.90); RDW 14.3 % (11.5-15.5)
[2019-05-09 06:55] LABS: Anisocytosis (M) Present; Poikilocytosis (M) Present
[2019-05-09] MEDS: MIDODRINE 5 MG TAB PO SCH ×3 (07:01→17:10)
[2019-05-09] MEDS: levOCARNitine (WITH SUGAR) 100 MG/ML BOTTLE PO SCH ×3 (07:02→17:10)
--- NOTE | 2019-05-09 08:45 | P.CRDCN ---
History of Present Illness Consult date: 05/09/19 History of present illness: This is a 83-year-old gentleman with history of renal failure on chronic dialysis, who was admitted to the hospital with altered mental status and hypotension. Patient had similar admissions for the same issue in the past, the last one being on April 02. He has history of chronic persistent atrial fibrillation and mild cardiomyopathy. Patient was started on IV Levophed with blood pressure in the range of 9200 systolic at this time. Patient is alert and awake and follows commands. Denies any chest pain and patient does have 2+ pop liteal edema. His proBNP is elevated. His recent echo Cardigan showed an ejection fraction about 45-50%. His proBNP is more than 10,000. His a troponin is mildly elevated. His creatinine is between 3-4. The etiology of the hypotension is not clear. Rule out underlying sepsis. Continue current medical therapy. No aggressive cardiac measures, at this time. CODE STATUS to be discussed Review of Systems As per the chart Past Medical History Past Medical History: Atrial Fibrillation, COPD, Hyperlipidemia, Hypertension, R enal Disease Additional Past Medical History / Comment(s): HAS HEMODIALYSIS - MON,WED, FRI , GLAUCOMA,MACULAR DEGENERATION History of Any Multi-Drug Resistant Organisms: None Reported Past Surgical History: Hernia Repair Additional Past Surgical History / Comment(s): Mastoid surgery X3 Past Anesthesia/Blood Transfusion Reactions: Previous Problems w/ Anesthesia Additional Past Anesthesia/Blood Transfusion Reaction / Comment(s): STATES TOOK LONGER WAKING UP Past Psychological History: No Psychological Hx Reported Smoking Status: Former smoker Past Alcohol Use History: None Reported Additional Past Alcohol Use History / Comment(s): STARTED SMOKING AT AGE 14 QUIT AT AGE 27 SMOKED LESS THAN 1/2PPD. ALCOHOL - VERY RARE Past Drug Use History: None Reported - Past Family History Sister(s) Family Medical History: Cancer Son(s) Family Medical History: Cancer Father Family Medical History: Asthma Mother Family Medical History: Hypertension Medications and Allergies Home Medications Medication Instructions Recorded Confirmed Type rOPINIRole HCL [Requip] 4 mg PO TID 12/27/17 05/08/19 History Prorenal + D 1 tab PO DAILY 01/24/19 05/08/19 History levOCARNitine [Levocarnitine] 330 mg PO TID-W/MEALS 01/24/19 05/08/19 History Allopurinol [Zyloprim] 100 mg PO HS #30 tab 03/02/19 05/08/19 Rx Budesonide-Formot 160-4.5 Mcg 2 puff INHALATION RT-BID #1 inh 03/02/19 05/08/19 Rx [Symbicort 160-4.5 Mcg Inhaler] Carbidopa-Levodopa 25-100 mg 1 tab PO BID #60 tab 03/02/19 05/08/19 Rx [Sinemet 25-100 mg] Gabapentin [Neurontin] 100 mg PO TID #9 cap 03/02/19 05/08/19 Rx Midodrine [ProAmatine] 10 mg PO AC-TID #180 tab 03/02/19 05/08/19 Rx Pravastatin Sodium [Pravachol] 20 mg PO HS #30 tab 03/02/19 05/08/19 Rx Tamsulosin HCl [Flomax] 0.4 mg PO BID #60 cap 03/02/19 05/08/19 Rx Timolol 0.5% Ophth Soln [Timoptic 1 drop BOTH EYES DAILY #1 bottle 03/02/19 05/08/19 Rx 0.5% Ophth Soln] Docusate [Colace] 100 mg PO DAILY 04/02/19 05/08/19 History Ipratropium-Albuterol Nebulize 3 ml INHALATION RT-QID 04/02/19 05/08/19 History [Duoneb 0.5 mg-3 mg/3 ml Soln] Iron-27mg 27 mg PO DAILY 04/02/19 05/08/19 History Magnesium Oxide [Reed] 500 mg PO DAILY 04/02/19 05/08/19 History Vit A/Vit C/Vit E/Zinc/Copper 1 cap PO DAILY 04/02/19 05/08/19 History [ICAPS SOFTGEL] levETIRAcetam [Keppra] 250 mg PO HS 04/02/19 05/08/19 History Fludrocortisone [Florinef] 0.2 mg PO BID 30 Days #60 tab 04/14/19 05/08/19 Rx Folic Acid 1 mg PO DAILY@1200 30 Days #30 tab 04/14/19 05/08/19 Rx Hydrocortisone [Cortef] 20 mg PO BID 30 Days #60 tab 04/14/19 05/08/19 Rx Thiamine [Vitamin B-1] 100 mg PO DAILY@1200 30 Days #30 04/14/19 05/08/19 Rx tab Brimonidine Tartrate [Alphagan P 1 drop BOTH EYES Q8H 05/08/19 05/08/19 History 0.1% Ophth Soln] Furosemide [Lasix] 240 mg PO DAILY 05/08/19 05/08/19 History Multivitamins, Thera [Multivitamin 1 tab PO DAILY@1200 05/08/19 05/08/19 History (formulary)] guaiFENesin [Mucinex] 600 mg PO Q12HR PRN 05/08/19 05/08/19 History Allergies Allergy/AdvReac Type Severity Reaction Status Date / Time No Known Allergies Allergy Verified 05/08/19 14:21 Physical Exam Vitals: Vital Signs Temp Pulse Pulse Resp BP BP Pulse Ox 05/09/19 07:00 77 17 102/68 96 05/09/19 06:30 80 9 L 94/68 98 05/09/19 06:00 24 102/66 95 05/09/19 05:30 78 26 H 97/64 97 05/09/19 05:00 85 28 H 95/64 96 05/09/19 04:30 80 14 102/64 99 05/09/19 04:00 97.8 F 80 13 102/68 98 05/09/19 03:30 82 16 107/70 98 05/09/19 03:24 97 05/09/19 03:00 84 30 H 111/76 99 05/09/19 02:30 80 14 104/70 99 05/09/19 02:00 86 20 94/68 91 L 05/09/19 01:30 82 21 93/65 93 L 05/09/19 01:00 81 21 95/58 93 L 05/09/19 00:30 79 19 82/51 92 L 05/09/19 00:23 81 20 95 05/09/19 00:00 97.6 F 81 25 H 85/53 97 05/08/19 23:32 98 05/08/19 23:30 81 24 90/64 93 L 05/08/19 23:00 76 21 97/62 96 05/08/19 22:30 85 22 97/57 97 05/08/19 22:00 78 15 92/53 96 05/08/19 21:30 21 107/70 94 L 05/08/19 21:21 86 05/08/19 21:09 82 96 05/08/19 21:00 88 18 91/73 93 L 05/08/19 20:30 17 101/66 94 L 05/08/19 20:00 97.4 F L 78 15 107/71 97 05/08/19 19:30 74 16 111/76 96 05/08/19 19:10 80 6 L 84/57 95 05/08/19 19:00 80 10 L 95/60 95 05/08/19 18:50 78 8 L 95/60 94 L 05/08/19 18:40 6 L 94/68 89 L 05/08/19 18:30 19 102/63 99 05/08/19 18:20 8 L 102/63 96 05/08/19 18:10 21 99/60 83 L 05/08/19 18:00 10 L 95/58 96 05/08/19 17:50 14 95/58 98 05/08/19 17:40 95.9 F L 77 20 97/59 97 05/08/19 17:30 8 L 94/47 97 05/08/19 17:29 98.4 F 72 20 95/59 05/08/19 17:00 73 18 98/67 96 05/08/19 16:50 80 20 97/61 99 05/08/19 16:40 20 95/59 100 05/08/19 16:37 69 05/08/19 16:30 20 91/62 100 05/08/19 16:23 67 05/08/19 16:20 70 20 93/63 100 05/08/19 16:10 73 20 83/69 100 05/08/19 16:00 72 20 98/63 100 05/08/19 15:50 71 20 92/61 100 05/08/19 15:40 75 20 79/55 100 05/08/19 15:30 20 99/77 100 05/08/19 15:20 76 20 95/71 100 05/08/19 15:10 76 20 97/69 100 05/08/19 15:00 71 20 108/73 100 05/08/19 14:50 87 20 111/75 98 05/08/19 14:40 89 18 112/84 96 05/08/19 14:30 98 16 82/57 96 05/08/19 14:20 20 73/61 100 05/08/19 14:10 16 96 05/08/19 14:09 75 16 98 05/08/19 12:51 63 20 85/61 100 05/08/19 12:27 71 20 100 05/08/19 12:19 98.0 F 66 20 82/57 98 Intake and Output 05/08/19 05/09/19 05/09/19 22:59 06:59 14:59 Intake Total 70 271.269 20 Output Total 2000 0 0 Balance -1930 271.269 20 Intake: IV 20 250 20 Normal Saline 20 150 20 Piperacillin-Tazobactam 3 0 100 .375 gm In Sodium Chloride 0.9% 100 ml @ 25 mls/hr IVPB Q12HR [facility] Rx #:[id number] Intake, IV Titration 21.269 Amount Norepinephrine 32 mg In 21.269 Sodium Chloride 0.9% 218 ml @ 0.05 MCG/KG/MIN 2. 053 mls/hr IV .Q24H [facility] Rx#:[id number] Oral 50 Output: Urine 0 0 0 Hemodialysis 1999 Other: Weight 87.589 kg GENERAL EXAM: Patient is alert and awake and follows commands HEENT: Normocephalic. CHEST: No chest wall deformity. LUNGS: Equal air entry with no crackles or wheeze. HEART: S1 and S2 irregular heart sounds ABDOMEN: Distended and tympanic SKIN: No rashes CENTRAL NERVOUS SYSTEM: No focal deficits. EXTREMITIES: 2-3+ edema Results 05/09/19 04:30 05/09/19 04:30 Cardiac Enzymes 05/08/19 05/08/19 Range/Units 12:23 12: AST 21 (17-59) U/L Troponin I 0.045 H* (0.000-0.034) ng/mL Coagulation 05/08/19 Range/Units 12:23 PT 11.0 (9.0-12.0) sec APTT 30.3 H (22.0-30.0) sec CBC 05/08/19 05/09/19 Range/Units 12:23 04:30 WBC 5.7 6.0 (3.8-10.6) k/uL RBC 2.95 L 3.09 L (4.30-5.90) m/uL Hgb 10.2 L 10.8 L (13.0-17.5) gm/dL Hct 31.9 L 33.8 L (39.0-53.0) % Plt Count 113 L 136 L (150-450) k/uL Comprehensive Metabolic Panel 05/08/19 05/09/19 Range/Units 12:23 04:30 Sodium 136 L 136 L (137-145) mmol/L Potassium 4.2 5.0 (3.5-5.1) mmol/L Chloride 97 L 97 L (98-107) mmol/L Carbon Dioxide 32 H 30 (22-30) mmol/L BUN 42 H 43 H (9-20) mg/dL Creatinine 3.91 H 4.01 H (0.66-1.25) mg/dL Glucose 123 H 157 H (74-99) mg/dL Calcium 9.0 9.9 (8.4-10.2) mg/dL AST 21 (17-59) U/L ALT <6 (4-49) U/L Alkaline Phosphatase 100 (38-126) U/L Total Protein 5.5 L (6.3-8.2) g/dL Albumin 2.7 L (3.5-5.0) g/dL Current Medications Generic Name Dose Route Start Last Admin Trade Name Freq PRN Reason Stop Dose Admin Albuterol/Ipratropium 3 ml 05/08/19 16:00 05/08/19 21:09 Duoneb 0.5 Mg-3 Mg/3 Ml Soln INHALATION 3 ml RT-QID [facility] Administration Albuterol/Ipratropium 3 ml 05/08/19 15:02 Duoneb 0.5 Mg-3 Mg/3 Ml Soln INHALATION RT-Q4H PRN Shortness Of Breath Or Wheezing Alprazolam 0.25 mg 05/08/19 22:15 05/08/19 22:18 Xanax PO 0.25 mg HS [facility] Administration Budesonide/Formoterol Fumarate 2 puff 05/08/19 20:00 05/08/19 21:09 Symbicort 160-4.5 Mcg Inhaler INHALATION 2 puff RT-BID [facility] Administration Ferrous Sulfate 325 mg 05/09/19 09:00 Feosol PO DAILY [facility] Fludrocortisone Acetate 0.2 mg 05/08/19 21:00 05/08/19 22:16 Florinef PO 0.2 mg BID [facility] Administration Folic Acid 1 mg 05/09/19 12:00 Folic Acid PO DAILY@1200 [facility] Furosemide 240 mg 05/09/19 09:00 Lasix PO DAILY [facility] Gabapentin 100 mg 05/08/19 22:00 05/08/19 22:19 Neurontin PO 100 mg TID [facility] Administration Guaifenesin 600 mg 05/08/19 16:55 05/09/19 01:23 Mucinex PO 600 mg Q12HR PRN Administration Cough Heparin Sodium (Porcine) 5,000 unit 05/08/19 21:00 05/08/19 22:18 Heparin SQ 5,000 unit Q12HR [facility] Administration Hydrocortisone Sodium Succinate 100 mg 05/08/19 16:00 05/08/19 23:24 Solu-Cortef IV 100 mg Q8HR [facility] Administration Norepinephrine Bitartrate 32 250 mls @ 2.053 mls/hr 05/08/19 13:30 05/09/19 00:07 mg/ Sodium Chloride IV 0.07 mcg/kg/min .Q24H [facility] 2.874 mls/hr Titration Protocol 0.05 MCG/KG/MIN Sodium Chloride 1,000 mls @ 20 mls/hr 05/08/19 15:15 05/08/19 16:37 Saline 0.9% IV Not Given .Q24H [facility] Piperacillin Sod/Tazobactam 100 mls @ 25 mls/hr 05/08/19 18:00 05/08/19 18:30 Sod 3.375 gm/ Sodium Chloride IVPB 25 mls/hr Q12HR [facility] Administration Lactulose 30 gm 05/08/19 19:11 Cephulac PO BID PRN Constipation Levetiracetam 250 mg 05/08/19 21:00 05/08/19 22:17 Keppra PO 250 mg HS [facility] Administration Levocarnitine 330 mg 05/08/19 17:30 05/09/19 07:02 Carnitor Oral Soln PO 330 mg TID-W/MEALS [facility] Administration Magnesium Oxide 400 mg 05/09/19 09:00 Mag-Ox PO DAILY [facility] Melatonin 3 mg 05/08/19 21:00 05/08/19 22:17 Melatonin PO 3 mg HS [facility] Administration Midodrine 10 mg 05/08/19 17:30 05/09/19 07:01 Proamatine PO 10 mg AC-TID [facility] Administration Multivit/Ca Carb/B Cmplx/FA/Prenat 1 each 05/09/19 09:00 Nephrocaps PO DAILY [facility] Multivitamins/Minerals 1 each 05/09/19 09:00 Ivite PO DAILY [facility] Naloxone HCl 0.2 mg 05/08/19 15:02 Narcan IV Q2M PRN Opioid Reversal Pantoprazole Sodium 40 mg 05/09/19 09:00 Protonix IV DAILY [facility] Pravastatin Sodium 20 mg 05/08/19 21:00 05/08/19 22:17 Pravachol PO 20 mg HS [facility] Administration Ropinirole HCl 4 mg 05/08/19 22:00 05/08/19 22:17 Requip PO 4 mg TID [facility] Administration Thiamine HCl 100 mg 05/09/19 12:00 Vitamin B-1 PO DAILY@1200 [facility] Timolol Maleate 1 drops 05/08/19 21:45 05/08/19 22:19 Timoptic BOTH EYES 1 drops BID [facility] Administration Intake and Output 05/08/19 05/09/19 05/09/19 22:59 06:59 14:59 Intake Total 70 271.269 20 Output Total 2000 0 0 Balance -1930 271.269 20 Intake: IV 20 250 20 Normal Saline 20 150 20 Piperacillin-Tazobactam 3 0 100 .375 gm In Sodium Chloride 0.9% 100 ml @ 25 mls/hr IVPB Q12HR [facility] Rx #:[id number] Intake, IV Titration 21.269 Amount Norepinephrine 32 mg In 21.269 Sodium Chloride 0.9% 218 ml @ 0.05 MCG/KG/MIN 2. 053 mls/hr IV .Q24H [facility] Rx#:[id number] Oral 50 Output: Urine 0 0 0 Hemodialysis 1999 Other: Weight 87.589 kg 05/09/19 04:30 05/09/19 04:30 EKG Interpretations (text) Atrial fibrillation with controlled ventricular response Assessment and Plan (1) Hypotension Current Visit: Yes Status: Acute Code(s): I95.9 - HYPOTENSION, UNSPECIFIED SNOMED Code(s): 78675274 (2) Afib Current Visit: No Status: Acute Code(s): I48.91 - UNSPECIFIED ATRIAL FIBRILLATION SNOMED Code(s): 68898226 (3) Anasarca Current Visit: No Status: Acute Code(s): R60.1 - GENERALIZED EDEMA SNOMED Code(s): 606698320 (4) ESRD (end stage renal disease) on dialysis Current Visit: No Status: Acute Code(s): N18.6 - END STAGE RENAL DISEASE; Z99.2 - DEPENDENCE ON RENAL DIALYSIS SNOMED Code(s): 659976887 Plan: Continue current supportive measures. I will repeat the echocardiogram to assess LV function and to rule out any pericardial effusion. Prognosis is poor
[2019-05-09] MEDS: IPRATROPIUM-ALBUTEROL 3 ML NEB INHALATION SCH ×4 (08:47→19:46)
[2019-05-09] MEDS ORDERED: FUROSEMIDE 80 MG TAB PO SCH (09:00)
[2019-05-09] MEDS ORDERED: PANTOPRAZOLE 40 MG/10 ML VIAL IV SCH (09:00)
[2019-05-09] MEDS ORDERED: TIMOLOL 0.5% OPHTH DROPS 5 ML BTL BOTH EYES SCH (09:00)
[2019-05-09] MEDS: rOPINIRole HCL 4 MG TABLET PO SCH ×3 (10:05→21:00)
[2019-05-09] MEDS: SYMBICORT 160-4.5 MCG INHALER INHALATION SCH ×2 (10:09→19:48)
--- NOTE | 2019-05-09 10:12 | PN ---
PROGRESS NOTE PULMONARY/CRITICAL CARE PROGRESS NOTE: DATE OF SERVICE: May 09, 2019 An 83-year-old male, well known to us. We saw him in the emergency room yesterday. He came into the ER with mental status changes, which may relate to either sepsis and/or hypotension. The patient has a history of chronic renal failure and he is on 3 time a week hemodialysis on Wednesday, Wednesday, Wednesday. He apparently was not able to have dialysis on his last visit because of low blood pressure. A central line was placed by the ER physician. The patient was transferred up to the ICU. Today he seems to be doing a lot better. He is on O2 at 4 L nasal cannula. He is receiving saline at 20 mL an hour and norepinephrine 6.2 mcg/minute. I did ask the nurse to get an incentive spirometer and flutter valve in the room as he appears to have some chest congestion. The patient does have a history of multiple admissions for similar episodes, chronic atrial fibrillation, COPD, hyperlipidemia, hypertension, macular degeneration, and glaucoma. Again currently he seems to be doing relatively well. PHYSICAL EXAMINATION: VITAL SIGNS: Current vital signs are reviewed. Temperature is 97.8, heart rate 75, respiratory rate 12, blood pressure 91/56, high blood pressure is 102/68 and 4 L saturations 97%. GENERAL: He appears in no acute distress. He is actually eating breakfast. HEENT: Examination is grossly unremarkable. Nasal O2 in place. NECK: Supple. Full range of motion. No adenopathy. Neck veins are flat. CARDIOVASCULAR: Examination reveals regular rhythm and rate. Heart rate mid 70s. S1, S2 normal. No murmur. LUNGS: Reveal coarse inspiratory and expiratory rhonchi. There are some bibasilar crackles. ABDOMEN: Soft. Bowel sounds are heard. EXTREMITIES: Reveal significant edema with pitting. SKIN: Reveals areas of ecchymoses. NEUROLOGIC: Examination is brief but nonfocal. LABS: Labs are reviewed. White count 6, hemoglobin 10.8, hematocrit 33.8, platelet count 136,000. PT, INR normal. PTT 30.3. Sodium 136, potassium 5, chloride 97, CO2 of 30. Anion gap is 9. BUN and creatinine 43 and 4.01. N terminal proBNP yesterday is 116,000. Troponin was 0.045. Cortisol was 21. Influenza studies were negative. A chest x-ray was not done, but the chest x-ray from yesterday showed changes of fluid overload and/or pneumonia. MEDICATIONS: Medications are reviewed. ASSESSMENT: 1. Mental status changes, of unclear etiology, may relate to hypertension, and they have seemed to resolve. 2. Hypotension, which may relate to underlying sepsis and/or infection, i.e. pneumonia. 3. Fluid overload based on the patient's chest x-ray, his examination, and very elevated N terminal proBNP. 4. End-stage renal disease, currently on 3 time a week hemodialysis. 5. Multiple admissions to the hospital for similar clinical presentation. 6. History of chronic atrial fibrillation. 7. History of chronic obstructive pulmonary disease from previous tobacco use. 8. Hyperlipidemia. 9. History of hypertension. 10.History of macular degeneration. 11.History of glaucoma. PLAN: The patient will continue with all the medications we wrote for yesterday. We are treating him in essence for both CHF and fluid overload as well as pneumonia. He is on breathing treatments and antibiotics. We will continue his usual medications. Additional recommendations and suggestions are forthcoming. Blood pressure is borderline low. Additional recommendations and suggestions are forthcoming. Will have Nephrology see the patient for consideration of resuming dialysis. Again, he is a Wednesday, Wednesday, Wednesday dialysis patient. CRITICAL CARE TIME: 32 minutes. QUEENIE / ISABELLAN: [id number] /
--- NOTE | 2019-05-09 11:16 | P.NPCON ---
History of Present Illness - Reason for Consult Consult date: 05/09/19 end stage renal disease - Chief Complaint Shortness of breath - History of Present Illness [place] [facility] [place] right upper arm AV fistula for the last 2 years. Admitted to the hospital with worsening shortness of breath. He had [id number] treatments at dialysis with an extra treatment on Wednesday. On Wednesday he was unable to finish his hold treatment as he was hypotensive. He was advised to go to the hospital but he came in yesterday with worsening shortness of breath was hypotensive admitted to ICU currently on levo fed. Ongoing dialysis tolerating well. No nausea vomiting or diarrhea. Review of Systems Constitutional: Reports as per HPI Past Medical History Past Medical History: Atrial Fibrillation, COPD, Hyperlipidemia, Hypertension, Renal Disease Additional Past Medical History / Comment(s): HAS HEMODIALYSIS - WED,WED, WED , GLAUCOMA,MACULAR DEGENERATION History of Any Multi-Drug Resistant Organisms: None Reported Past Surgical History: Hernia Repair Additional Past Surgical History / Comment(s): Mastoid surgery X3 Past Anesthesia/Blood Transfusion Reactions: Previous Problems w/ Anesthesia Additional Past Anesthesia/Blood Transfusion Reaction / Comment(s): STATES TOOK LONGER WAKING UP Past Psychological History: No Psychological Hx Reported Smoking Status: Former smoker Past Alcohol Use History: None Reported Additional Past Alcohol Use History / Comment(s): STARTED SMOKING AT AGE 14 QUIT AT AGE 27 SMOKED LESS THAN 1/2PPD. ALCOHOL - VERY RARE Past Drug Use History: None Reported - Past Family History Sister(s) Family Medical History: Cancer Son(s) Family Medical History: Cancer Father Family Medical History: Asthma Mother Family Medical History: Hypertension Medications and Allergies Home Medications Medication Instructions Recorded Confirmed Type rOPINIRole HCL [Requip] 4 mg PO TID 12/27/17 05/08/19 History Prorenal + D 1 tab PO DAILY 01/24/19 05/08/19 History levOCARNitine [Levocarnitine] 330 mg PO TID-W/MEALS 01/24/19 05/08/19 History Allopurinol [Zyloprim] 100 mg PO HS #30 tab 03/02/19 05/08/19 Rx Budesonide-Formot 160-4.5 Mcg 2 puff INHALATION RT-BID #1 inh 03/02/19 05/08/19 Rx [Symbicort 160-4.5 Mcg Inhaler] Carbidopa-Levodopa 25-100 mg 1 tab PO BID #60 tab 03/02/19 05/08/19 Rx [Sinemet 25-100 mg] Gabapentin [Neurontin] 100 mg PO TID #9 cap 03/02/19 05/08/19 Rx Midodrine [ProAmatine] 10 mg PO AC-TID #180 tab 03/02/19 05/08/19 Rx Pravastatin Sodium [Pravachol] 20 mg PO HS #30 tab 03/02/19 05/08/19 Rx Tamsulosin HCl [Flomax] 0.4 mg PO BID #60 cap 03/02/19 05/08/19 Rx Timolol 0.5% Ophth Soln [Timoptic 1 drop BOTH EYES DAILY #1 bottle 03/02/19 05/08/19 Rx 0.5% Ophth Soln] Docusate [Colace] 100 mg PO DAILY 04/02/19 05/08/19 History Ipratropium-Albuterol Nebulize 3 ml INHALATION RT-QID 04/02/19 05/08/19 History [Duoneb 0.5 mg-3 mg/3 ml Soln] Iron-27mg 27 mg PO DAILY 04/02/19 05/08/19 History Magnesium Oxide [Reed] 500 mg PO DAILY 04/02/19 05/08/19 History Vit A/Vit C/Vit E/Zinc/Copper 1 cap PO DAILY 04/02/19 05/08/19 History [ICAPS SOFTGEL] levETIRAcetam [Keppra] 250 mg PO HS 04/02/19 05/08/19 History Fludrocortisone [Florinef] 0.2 mg PO BID 30 Days #60 tab 04/14/19 05/08/19 Rx Folic Acid 1 mg PO DAILY@1200 30 Days #30 tab 04/14/19 05/08/19 Rx Hydrocortisone [Cortef] 20 mg PO BID 30 Days #60 tab 04/14/19 05/08/19 Rx Thiamine [Vitamin B-1] 100 mg PO DAILY@1200 30 Days #30 04/14/19 05/08/19 Rx tab Brimonidine Tartrate [Alphagan P 1 drop BOTH EYES Q8H 05/08/19 05/08/19 History 0.1% Ophth Soln] Furosemide [Lasix] 240 mg PO DAILY 05/08/19 05/08/19 History Multivitamins, Thera [Multivitamin 1 tab PO DAILY@1200 05/08/19 05/08/19 History (formulary)] guaiFENesin [Mucinex] 600 mg PO Q12HR PRN 05/08/19 05/08/19 History Allergies Allergy/AdvReac Type Severity Reaction Status Date / Time No Known Allergies Allergy Verified 05/08/19 14:21 Physical Exam Vitals: Vital Signs Temp Pulse Pulse Resp BP BP Pulse Ox 05/09/19 11:00 89 15 111/98 100 05/09/19 10:45 85 17 91/52 100 05/09/19 10:30 86 21 140/91 97 05/09/19 10:15 80 24 93/53 99 05/09/19 10:00 82 33 H 88/51 95 05/09/19 09:45 74 15 86/53 90 L 05/09/19 09:30 70 12 92/63 81 L 05/09/19 09:15 69 13 92/63 92 L 05/09/19 09:00 75 12 91/56 05/09/19 08:47 87 96 05/09/19 08:30 73 22 90/61 97 05/09/19 08:00 87 12 91/58 96 05/09/19 07:00 77 17 102/68 96 05/09/19 06:30 80 9 L 94/68 98 05/09/19 06:00 24 102/66 95 05/09/19 05:30 78 26 H 97/64 97 05/09/19 05:00 85 28 H 95/64 96 05/09/19 04:30 80 14 102/64 99 05/09/19 04:00 97.8 F 80 13 102/68 98 05/09/19 03:30 82 16 107/70 98 05/09/19 03:24 97 05/09/19 03:00 84 30 H 111/76 99 05/09/19 02:30 80 14 104/70 99 05/09/19 02:00 86 20 94/68 91 L 05/09/19 01:30 82 21 93/65 93 L 05/09/19 01:00 81 21 95/58 93 L 05/09/19 00:30 79 19 82/51 92 L 05/09/19 00:23 81 20 95 05/09/19 00:00 97.6 F 81 25 H 85/53 97 05/08/19 23:32 98 05/08/19 23:30 81 24 90/64 93 L 05/08/19 23:00 76 21 97/62 96 05/08/19 22:30 85 22 97/57 97 05/08/19 22:00 78 15 92/53 96 05/08/19 21:30 21 107/70 94 L 05/08/19 21:21 86 05/08/19 21:09 82 96 05/08/19 21:00 88 18 91/73 93 L 05/08/19 20:30 17 101/66 94 L 05/08/19 20:00 97.4 F L 78 15 107/71 97 05/08/19 19:30 74 16 111/76 96 05/08/19 19:10 80 6 L 84/57 95 05/08/19 19:00 80 10 L 95/60 95 05/08/19 18:50 78 8 L 95/60 94 L 05/08/19 18:40 6 L 94/68 89 L 05/08/19 18:30 19 102/63 99 05/08/19 18:20 8 L 102/63 96 05/08/19 18:10 21 99/60 83 L 05/08/19 18:00 10 L 95/58 96 05/08/19 17:50 14 95/58 98 05/08/19 17:40 95.9 F L 77 20 97/59 97 05/08/19 17:30 8 L 94/47 97 05/08/19 17:29 98.4 F 72 20 95/59 05/08/19 17:00 73 18 98/67 96 05/08/19 16:50 80 20 97/61 99 05/08/19 16:40 20 95/59 100 05/08/19 16:37 69 05/08/19 16:30 20 91/62 100 05/08/19 16:23 67 05/08/19 16:20 70 20 93/63 100 05/08/19 16:10 73 20 83/69 100 05/08/19 16:00 72 20 98/63 100 05/08/19 15:50 71 20 92/61 100 05/08/19 15:40 75 20 79/55 100 05/08/19 15:30 20 99/77 100 05/08/19 15:20 76 20 95/71 100 05/08/19 15:10 76 20 97/69 100 05/08/19 15:00 71 20 108/73 100 05/08/19 14:50 87 20 111/75 98 05/08/19 14:40 89 18 112/84 96 05/08/19 14:30 98 16 82/57 96 05/08/19 14:20 20 73/61 100 05/08/19 14:10 16 96 05/08/19 14:09 75 16 98 05/08/19 12:51 63 20 85/61 100 05/08/19 12:27 71 20 100 05/08/19 12:19 98.0 F 66 20 82/57 98 Intake and Output 05/08/19 05/09/19 05/09/19 22:59 06:59 14:59 Intake Total 70 271.269 80 Output Total 2000 0 0 Balance -1930 271.269 80 Intake: IV 20 250 80 Normal Saline 20 150 80 Piperacillin-Tazobactam 3 0 100 .375 gm In Sodium Chloride 0.9% 100 ml @ 25 mls/hr IVPB Q12HR [facility]A Rx #:[id number] Intake, IV Titration 21.269 Amount Norepinephrine 32 mg In 21.269 Sodium Chloride 0.9% 218 ml @ 0.05 MCG/KG/MIN 2. 053 mls/hr IV .Q24H SHILA Rx#:[id number] Oral 50 Output: Urine 0 0 0 Hemodialysis 1999 Other: Weight 87.589 kg No acute distress S1-S2 heard Decreased breath sounds Abdomen soft Right upper arm aVF Lower extremity edema Results - Lab Results Most recent lab results Calcium 9.9 mg/dL (8.4-10.2) 05/09/19 04:30 Phosphorus 3.5 mg/dL (2.5-4.5) 05/08/19 12:23 Magnesium 2.3 mg/dL (1.6-2.3) 05/08/19 12:23 05/09/19 04:30 05/09/19 04:30 Assessment and Plan Assessment: #1 shortness of breath secondary to volume overload. #2 ESRD on hemodialysis #3 anemia with ESRD #4 hypotension during dialysis #5 diastolic CHF. Plan: #1 hemodialysis yesterday 2 hours 2 L ultrafiltration. Planning for 3 L ultrafiltration today. #2 ESRD medications #3 change furosemide to torsemide 80 mg twice a day.
[2019-05-09] MEDS ORDERED: MULTIVITAMINS, THERA 1 EACH TAB PO SCH (12:00)
[2019-05-09] MEDS: FLUDROCORTISONE 0.1 MG TAB PO SCH ×2 (12:50→21:01)
[2019-05-09] MEDS: GABAPENTIN 100 MG CAP PO SCH ×3 (12:51→21:02)
[2019-05-09] MEDS: FERROUS SULFATE 325 MG TAB PO SCH (12:51)
[2019-05-09] MEDS: VIT A,C & E-LUTEIN-MINERALS 1 EACH TAB PO SCH (12:51)
[2019-05-09] MEDS: FOLIC ACID 1 MG TAB PO SCH (12:51)
[2019-05-09] MEDS: THIAMINE 100 MG TAB PO SCH (12:51)
[2019-05-09] MEDS: FOLIC ACID-VIT B COMPLEX-VIT C 1 CAP PO SCH (12:52)
[2019-05-09] MEDS: PIPERACILLIN-TAZOBACTAM 3.375 GM in SODIUM CHLORIDE 0.9% 100 ML IVPB SCH ×2 (12:54→21:03)
[2019-05-09] MEDS: HYDROCORTISONE SUCCINATE 100 MG/2 ML VIAL IV SCH ×3 (12:57→23:29)
[2019-05-09] MEDS: HEPARIN SODIUM,PORCINE 5,000 UNIT/ML 1 ML VIAL SQ SCH ×2 (12:57→21:02)
[2019-05-09] MEDS: MAGNESIUM OXIDE 400 MG TAB PO SCH (12:57)
[2019-05-09] MEDS: NOREPINEPHRINE 32 MG in SODIUM CHLORIDE 0.9% 218 ML IV SCH (13:54)
[2019-05-09] MEDS: SODIUM CHLORIDE 0.9% 1,000 ML IV SCH (16:32)
--- NOTE | 2019-05-09 17:08 | PN ---
PROGRESS NOTE DATE OF SERVICE: 05/09/2019 This 83-year-old gentleman who was admitted with shortness of breath as well as CHF, acute exacerbation, and acute hypoxic respiratory failure also had cardiogenic shock. The patient also had possible bronchopneumonia. Patient is being closely monitored at this time. Multiple consultants are following the patient closely. A 2D echo with Doppler is pending at this time. The patient continues to have some mental status changes as well. Cardiology, Pulmonology and Nephrology are following the patient closely. Past medical history reviewed. The patient had [id number] treatments for chronic renal failure with hemodialysis. Nephrology is following the patient closely. REVIEW OF SYSTEMS: CARDIOVASCULAR SYSTEM: No angina, palpitations. RESPIRATORY SYSTEM: As mentioned earlier. GI: As mentioned earlier. : No dysuria or retention. NERVOUS SYSTEM: No numbness, weakness. CURRENT MEDICATIONS: Reviewed. They include: 1. DuoNeb q.i.d. and p.r.n. 2. Xanax 0.25 at bedtime. 3. Symbicort 160/4.5 two puffs b.i.d. 4. Iron sulfate 325 mg daily. 5. Florinef 0.2 p.o. b.i.d. 6. Folic acid 1 mg p.o. daily. 7. Neurontin 100 mg p.o. t.i.d. 8. Mucinex 600 mg p.o. b.i.d. 9. Heparin 5000 units subcutaneously b.i.d. 10.Solu-Cortef 100 mg IV q.8. 11.Cephulac 30 grams b.i.d. p.r.n. 12.Keppra 250 mg p.o. at bedtime. 13.Carnitine 330 mg p.o. t.i.d. 14.Magnesium oxide 400 mg p.o. daily. 15.Melatonin 3 mg at bedtime. 16.ProAmatine. 17.Multivitamins. 18.Narcan. 19.Protonix. 20.Zosyn 3.375 IV b.i.d. 21.Pravachol. 22.Requip. 23.Vitamin B1. 24.Timoptic. 25.Demadex. PHYSICAL EXAMINATION: Patient is alert, oriented x3. Pulse 80, blood pressure 85/56, respiration 19, temperature 98.4, pulse ox 98% on room air. HEENT: Conjunctivae normal. NECK: No jugular venous distention. CARDIOVASCULAR SYSTEM: S1, S2 muffled. RESPIRATORY SYSTEM: Breath sounds diminished at the bases. A few scattered rhonchi and crackles. ABDOMEN: Soft, non-tender. No mass palpable. LEGS: No edema. No swelling. NERVOUS SYSTEM: Higher functions as mentioned earlier. Moves all 4 limbs. No focal motor or sensory deficit. LYMPHATICS: No lymph node palpable in neck, axillae or groin. SKIN: No ulcer, rash, bleeding. JOINTS: No active deforming arthropathy. LABS: WBC 6, hemoglobin 10.8. Sodium 136, potassium 5 and glucose 157. Influenza negative. NT-Pro-BNP is 116.000. ASSESSMENT: 1. Congestive heart failure, acute exacerbation, with acute on chronic systolic dysfunction, ejection fraction 40% to 50% with acute hypoxic hypercarbic respiratory failure, on BiPAP. 2. Hypotension, possibly cardiogenic shock. Rule out sepsis. 3. Change in mental status; metabolic encephalopathy, multifactorial. 4. Rule out bronchopneumonia. 5. Hyponatremia. 6. Troponin 0.05, indeterminate. Rule out acute vef-[id number]-elevation myocardial infarction or type 2 myocardial infarction, supply/demand mismatch. 7. BNP elevated up to 116,000. 8. Hypoalbuminemia with mild to moderate protein-calorie malnutrition. 9. Anemia, macrocytic; anemia of chronic disease. 10.Thrombocytopenia. 11.History of atrial fibrillation. 12.History of chronic obstructive pulmonary disease. 13.Hyperlipidemia. 14.Hypotension. 15.History of chronic kidney disease, stage IV, hemodialysis Wednesday, Wednesday, Wednesday. 16.Glaucoma. 17.Macular degeneration. 18.History of degenerative joint disease. 19.Remote history of nicotine dependence. 20.Gait dysfunction. 21.FULL CODE. RECOMMENDATIONS AND DISCUSSION: In this 83-year-old gentleman who presented with multiple complex medical issues, we will monitor the patient closely, continue the current medications, continue with symptomatic treatment. Hemodialysis is being carried out at this time. Otherwise, I would recommend continuing the rest of the medication, bronchodilators, empiric antibiotics. The cultures are negative so far. Prognosis guarded. Further recommendations to follow. See orders for further details. Discussed with staff. Creatinine is 4.01 at this time. MMODL / IJN: [id number] /
[2019-05-09] MEDS: TORSEMIDE 20 MG TAB PO SCH (21:00)
[2019-05-09] MEDS ORDERED: ALPRAZolam 0.25 MG TAB PO SCH (21:00)
[2019-05-09] MEDS: levETIRAcetam 250 MG TAB PO SCH (21:01)
[2019-05-09] MEDS: MELATONIN 3 MG TABLET PO SCH (21:01)
[2019-05-09] MEDS: TIMOLOL 0.5% OPHTH DROPS 5 ML BTL BOTH EYES SCH (21:02)
[2019-05-09] MEDS: PRAVASTATIN SODIUM 20 MG TAB PO SCH (21:02)
[2019-05-09] MEDS: ALPRAZolam 0.25 MG TAB PO SCH (21:02)
[2019-05-10 04:17] LABS: Basophils % (A) 0 %; Eosinophils % (A) 0 %; HCT 36.9 % (39.0-53.0); HGB 11.7 gm/dL (13.0-17.5); Hypochromasia Moderate; Lymphocytes # (A) 0.4 k/uL (1.0-4.8); Lymphocytes % (A) 5 %; MCH 34.9 pg (25.0-35.0); MCHC 31.7 g/dL (31.0-37.0); MCV 110.2 fL (80.0-100.0); Macrocytosis Marked; Mean Platelet Volume 8.9; Monocytes # (A) 0.2 k/uL (0-1.0); Monocytes % (A) 3 %; Neutrophils # (A) 6.5 k/uL (1.3-7.7); Neutrophils % (A) 91 %; Platelet Count 148 k/uL (150-450); RBC 3.34 m/uL (4.30-5.90); RDW 14.4 % (11.5-15.5); WBC 7.1 k/uL (3.8-10.6)
[2019-05-10 04:47] LABS: Calcium 9.9 mg/dL (8.4-10.2); Potassium 4.9 mmol/L (3.5-5.1)
[2019-05-10] MEDS: levOCARNitine (WITH SUGAR) 100 MG/ML BOTTLE PO SCH ×3 (07:03→17:04)
[2019-05-10] MEDS: MIDODRINE 5 MG TAB PO SCH ×3 (07:05→16:53)
[2019-05-10] MEDS: SYMBICORT 160-4.5 MCG INHALER INHALATION SCH ×2 (07:52→19:09)
[2019-05-10] MEDS: IPRATROPIUM-ALBUTEROL 3 ML NEB INHALATION SCH ×4 (07:52→19:09)
[2019-05-10] MEDS: HEPARIN SODIUM,PORCINE 5,000 UNIT/ML 1 ML VIAL SQ SCH ×2 (09:36→20:34)
[2019-05-10] MEDS: HYDROCORTISONE SUCCINATE 100 MG/2 ML VIAL IV SCH ×2 (09:36→16:53)
[2019-05-10] MEDS: MAGNESIUM OXIDE 400 MG TAB PO SCH (09:36)
[2019-05-10] MEDS: FERROUS SULFATE 325 MG TAB PO SCH (09:36)
[2019-05-10] MEDS: GABAPENTIN 100 MG CAP PO SCH ×3 (09:36→20:35)
[2019-05-10] MEDS: FLUDROCORTISONE 0.1 MG TAB PO SCH ×2 (09:37→20:34)
[2019-05-10] MEDS: PANTOPRAZOLE 40 MG TABLET PO SCH (09:37)
[2019-05-10] MEDS: TIMOLOL 0.5% OPHTH DROPS 5 ML BTL BOTH EYES SCH ×2 (09:37→20:37)
[2019-05-10] MEDS: rOPINIRole HCL 4 MG TABLET PO SCH ×3 (09:37→20:35)
[2019-05-10] MEDS: TORSEMIDE 20 MG TAB PO SCH ×2 (09:38→20:36)
[2019-05-10] MEDS: FOLIC ACID-VIT B COMPLEX-VIT C 1 CAP PO SCH (09:38)
[2019-05-10] MEDS: PIPERACILLIN-TAZOBACTAM 3.375 GM in SODIUM CHLORIDE 0.9% 100 ML IVPB SCH ×2 (09:38→20:30)
[2019-05-10] MEDS: VIT A,C & E-LUTEIN-MINERALS 1 EACH TAB PO SCH (09:38)
--- NOTE | 2019-05-10 11:12 | P.PN ---
Subjective Progress Note Date: 05/10/19 Seen and examined for the follow-up of ESRD. Had full return of treatment yesterday. Objective - Vital Signs Vital signs: Vital Signs Temp 97.6 F 05/10/19 08:00 Pulse 71 05/10/19 11:07 Resp 22 05/10/19 10:15 BP 102/69 05/10/19 10:15 Pulse Ox 95 05/10/19 10:15 Intake & Output 05/09/19 05/10/19 05/10/19 18:59 06:59 18:59 Intake Total 340 260 155 Output Total 3000 5 0 Balance -2660 255 155 Intake: IV 340 260 155 Normal Saline 240 160 80 Piperacillin-Tazobactam 3 100 100 75 .375 gm In Sodium Chloride 0.9% 100 ml @ 25 mls/hr IVPB Q12HR [facility] Rx #:[id number] Output: Urine 0 5 0 Hemodialysis 3000 Other: Voiding Method Urinal Urinal - Exam No acute distress S1-S2 heard Decreased breath sounds Right upper arm aVF Edema. - Labs CBC & Chem 7: 05/10/19 04:00 05/10/19 04:00 Labs: Abnormal Lab Results - Last 24 Hours (Table) 05/10/19 05/10/19 Range/Units 04:00 04:00 RBC 3.34 L (4.30-5.90) m/uL Hgb 11.7 L (13.0-17.5) gm/dL Hct 36.9 L (39.0-53.0) % MCV 110.2 H (80.0-100.0) fL Plt Count 148 L (150-450) k/uL Lymphocytes # 0.4 L (1.0-4.8) k/uL Macrocytosis Marked A BUN 36 H (9-20) mg/dL Creatinine 3.76 H (0.66-1.25) mg/dL Glucose 172 H (74-99) mg/dL Microbiology - Last 24 Hours (Table) 05/08/19 17:29 Blood Culture - Preliminary Blood No Growth after 24 hours Assessment and Plan Assessment: #1 shortness of breath secondary to volume overload. #2 ESRD on hemodialysis #3 anemia with ESRD #4 hypotension during dialysis #5 diastolic CHF. Plan: #1 hemodialysis tomorrow with 3 L UF. #2 ESRD medications #3 continue with torsemide 80 mg twice a day. #4 midodrine for hemodynamic support
[2019-05-10] MEDS: FOLIC ACID 1 MG TAB PO SCH (12:34)
[2019-05-10] MEDS: THIAMINE 100 MG TAB PO SCH (12:34)
--- NOTE | 2019-05-10 12:50 | PN ---
PROGRESS NOTE PULMONARY/CRITICAL CARE PROGRESS NOTE: DATE OF SERVICE: May 10, 2019 This is an 83-year-old male, well known to us. He was seen in the emergency room 2 days ago. He came into the ER with mental status changes and hypotension. He was thought to either have volume depletion from excessive dialysis and/or sepsis. The patient was admitted to the ICU for further monitoring. He is a chronic renal failure patient with a 3 time a week hemodialysis, typically on Wednesday, Wednesday, Wednesday. The patient was not able to have dialysis on his Wednesday visit. He did have dialysis yesterday. His blood pressure was low. The ER physician placed a central line. The patient was transferred up to the ICU. He was on O2 at 4 L. Currently on 3 L. He is doing relatively well. He has been on norepinephrine since he has been here. Yesterday, he was on 6.2 mics per minute of norepinephrine and today he is on 8 mcg/minute of norepinephrine. That is to maintain a systolic blood pressure of about 90. Other than that, he is doing reasonably well. I did ask the nurse to get a flutter valve in the room for his chest secretions and also an incentive spirometer. The patient has a history of chronic atrial fibrillation, COPD from previous tobacco use, hyperlipidemia, hypertension, macular degeneration, glaucoma, and end-stage renal disease. PHYSICAL EXAMINATION: VITAL SIGNS: Currently, his vital signs are reviewed. Temperature is 97.6, heart rate 73, respiratory rate 22, blood pressure 100/67, mean 78. 4 L saturation 95%. GENERAL: Appears in no acute distress. HEENT examination is grossly unremarkable. Mucous membranes are moist. No oral lesions. Nasal O2 noted. NECK: Supple. Full range of motion. No adenopathy or thyromegaly. Neck veins are flat. CARDIOVASCULAR examination reveals regular rhythm and rate. Heart rate 73. S1, S2 normal. Heart sounds are distant. LUNGS: A few scattered coarse rhonchi. No wheezes or crackles. ABDOMEN: Soft. EXTREMITIES are intact. There is diffuse edema which is pitting in nature. No cyanosis or clubbing. SKIN: Without rash. NEUROLOGIC: Examination is nonfocal. Microbiology is thus far negative. LABS: Reviewed. White count 7.1, hemoglobin 11.7, hematocrit 36.9, platelet count 148,000. Sodium 140, potassium 4.9, chloride 102. CO2 is 30, anion gap is 8. BUN and creatinine were 36 and 3.76. His N-terminal proBNP when he was 1st admitted on May 08 was 116,000. Cortisol level 21. No recent chest x-ray has been done. Medications are reviewed. ASSESSMENT: 1. Mental status changes, of unclear etiology, may relate to hypotension, and mental status changes have seemed to resolve. 2. Hypotension, which may relate to underlying sepsis and/or infection, or related to excessive fluid removal and dialysis. 3. Rule out pneumonia. 4. Fluid overload, based on the his patient's chest x-ray, examination, and very elevated N terminal proBNP. 5. End-stage renal disease, currently on 3 time a week/Wednesday, Wednesday, Wednesday dialysis. 6. Multiple admissions to the hospital for similar clinical presentation. 7. History of chronic atrial fibrillation. 8. History of chronic obstructive pulmonary disease from previous heavy tobacco use. 9. Hyperlipidemia. 10.Benign essential hypertension. 11.History of macular degeneration. 12.History of glaucoma. PLAN: We will get a chest x-ray on this patient. The patient will continue on O2. We will continue to try to wean down the norepinephrine. Currently his level is at 8 mcg/minute. He was at 6.2 yesterday. He is getting saline at 20 mL an hour. His medications are reviewed. Additional recommendations and suggestions are forthcoming. We continue with deep breathing, coughing, clearing of secretions, use of a flutter valve, and hourly use of incentive spirometer. No additional recommendations are made. Prognosis is guarded. We will continue to follow. MMODL / IJN: [id number] /
[2019-05-10] MEDS: SODIUM CHLORIDE 0.9% 1,000 ML IV SCH (15:18)
[2019-05-10] MEDS: NOREPINEPHRINE 32 MG in SODIUM CHLORIDE 0.9% 218 ML IV SCH (15:18)
--- NOTE | 2019-05-10 19:37 | PN ---
PROGRESS NOTE DATE OF SERVICE: 05/10/2019 This 83-year-old gentleman who was admitted with shortness of breath as well as CHF acute exacerbation, also had acute hypoxic respiratory failure and cardiac shock. The blood pressure is still low and the patient is on pressor support at this time. Multiple consultants are following the patient closely. 8:00 am cortisol was found to be 21. PAST MEDICAL HISTORY: Reviewed. REVIEW OF SYSTEMS: Could not be taken, the patient is currently drowsy. CURRENT MEDICATIONS: 1. DuoNeb q.i.d. and p.r.n. 2. Xanax 0.5 q.h.s. 3. Symbicort 160/4.5 two puffs b.i.d. 4. Iron sulfate 325 mg daily. 5. Florinef 0.2 b.i.d. 6. Neurontin 100 mg b.i.d. 7. Mucinex. 8. Heparin. 9. Solu-Cortef IV 100 mg IV q.h.s. 10.Magnesium oxide. 11.ProAmatine. 12.Zosyn 3.375 IV b.i.d. 13.Vitamin B1. 14.( ). 15.Demadex p.o. b.i.d. PHYSICAL EXAMINATION: Patient is alert, oriented x1; arousable, pleasant, drowsy. Pulse 75, blood pressure 103/60, respiration 22, temperature normal, pulse ox 98% on 4 L. HEENT: Conjunctivae normal. Oral mucosa moist. NECK: No jugular venous distention. No lymph node enlargement. CARDIOVASCULAR: S1, S2. RESPIRATORY: Diminished breath sounds at the bases. Scattered rhonchi and crackles. ABDOMEN: Soft, nontender. LEGS: No edema, no swelling. NERVOUS SYSTEM: Diffusely weak. LABS: WBC 7.2, hemoglobin 11.7. The creatinine is 3.76. ASSESSMENT: 1. Congestive heart failure acute exacerbation, acute on chronic systolic dysfunction, ejection fraction 40-50% with acute hypoxic hypercarbic respiratory failure on BiPAP. 2. Hypotension, possibly cardiogenic shock, rule out sepsis. 3. Change in mental status, metabolic encephalopathy, multifactorial. 4. Rule out bronchopneumonia. 5. Hypernatremia. 6. Troponin 0.05, indeterminate. Rule out acute non ST-segment elevation myocardial infarction or type 2 myocardial infarction, supply demand mismatch. 7. BNP elevated to 116,000. 8. Hypoalbuminemia with mild to moderate protein calorie malnutrition. 9. Anemia, macrocytic anemia of chronic disease. 10.Thrombocytopenia. 11.History atrial fibrillation. 12.History of chronic obstructive pulmonary disease. 13.History of hyperlipidemia. 14.Hypotension. 15.History of chronic kidney disease stage 4 on hemodialysis Wednesday, Wednesday, Wednesday. 16.Glaucoma. 17.History of macular degeneration. 18.History of degenerative joint disease. 19.Remote history of nicotine dependence. 20.Gait dysfunction. 21.FULL CODE. RECOMMENDATIONS AND DISCUSSION: I recommend to continue current medications, continue to monitor, continue symptomatic treatment. The patient is started on empiric IV steroids and continue with Florinef. Continue with empiric antibiotics. Continue with pressor support. Otherwise, hemodialysis. Overall prognosis extremely guarded. Closely monitor with multiple consultants. The cultures are negative so far. Further recommendations to follow. MMODL / IJN: [id number] /
[2019-05-10] MEDS: levETIRAcetam 250 MG TAB PO SCH (20:33)
[2019-05-10] MEDS: ALPRAZolam 0.25 MG TAB PO SCH (20:33)
[2019-05-10] MEDS: PRAVASTATIN SODIUM 20 MG TAB PO SCH (20:34)
[2019-05-11] MEDS: NOREPINEPHRINE 32 MG in SODIUM CHLORIDE 0.9% 218 ML IV SCH (01:11)
[2019-05-11] MEDS: HYDROCORTISONE SUCCINATE 100 MG/2 ML VIAL IV SCH ×4 (01:55→23:33)
[2019-05-11 04:58] LABS: Basophils % (A) 0 %; Eosinophils % (A) 0 %; HCT 36.1 % (39.0-53.0); HGB 10.9 gm/dL (13.0-17.5); Hypochromasia Marked; Lymphocytes # (A) 0.6 k/uL (1.0-4.8); Lymphocytes % (A) 6 %; MCHC 30.3 g/dL (31.0-37.0); MCV 112.3 fL (80.0-100.0); Mean Platelet Volume 8.9; Monocytes # (A) 0.3 k/uL (0-1.0); Monocytes % (A) 4 %; Neutrophils % (A) 89 %; Platelet Count 167 k/uL (150-450); RBC 3.22 m/uL (4.30-5.90); RDW 14.3 % (11.5-15.5)
[2019-05-11 05:05] LABS: Macrocytosis Marked
[2019-05-11 05:09] LABS: Potassium 4.7 mmol/L (3.5-5.1)
[2019-05-11 05:10] LABS: Calcium 9.8 mg/dL (8.4-10.2)
[2019-05-11] MEDS: MIDODRINE 5 MG TAB PO SCH ×3 (06:51→16:54)
[2019-05-11] MEDS: levOCARNitine (WITH SUGAR) 100 MG/ML BOTTLE PO SCH ×2 (06:54→11:56)
[2019-05-11] MEDS: FERROUS SULFATE 325 MG TAB PO SCH (08:46)
[2019-05-11] MEDS: HEPARIN SODIUM,PORCINE 5,000 UNIT/ML 1 ML VIAL SQ SCH ×2 (08:47→20:06)
[2019-05-11] MEDS: PANTOPRAZOLE 40 MG TABLET PO SCH (08:47)
[2019-05-11] MEDS: GABAPENTIN 100 MG CAP PO SCH ×3 (08:47→20:59)
[2019-05-11] MEDS: MAGNESIUM OXIDE 400 MG TAB PO SCH (08:47)
[2019-05-11] MEDS: PIPERACILLIN-TAZOBACTAM 3.375 GM in SODIUM CHLORIDE 0.9% 100 ML IVPB SCH ×2 (08:48→20:10)
[2019-05-11] MEDS: FLUDROCORTISONE 0.1 MG TAB PO SCH ×2 (08:48→20:07)
[2019-05-11] MEDS: TIMOLOL 0.5% OPHTH DROPS 5 ML BTL BOTH EYES SCH ×2 (08:49→20:11)
[2019-05-11] MEDS: rOPINIRole HCL 4 MG TABLET PO SCH ×3 (08:49→21:02)
[2019-05-11] MEDS: TORSEMIDE 20 MG TAB PO SCH ×2 (08:49→20:07)
[2019-05-11] MEDS: VIT A,C & E-LUTEIN-MINERALS 1 EACH TAB PO SCH (08:50)
[2019-05-11] MEDS: FOLIC ACID-VIT B COMPLEX-VIT C 1 CAP PO SCH (08:50)
--- NOTE | 2019-05-11 08:57 | P.PN ---
Subjective Progress Note Date: 05/11/19 Principal diagnosis: Metabolic encephalopathy, hypertension, fluid overload On 05/11/2019 reason is seen in follow-up in the intensive care unit, he is awake and alert, his mentation has much improved, breathing easier, currently on 4 L of oxygen with pulse ox of 97%, afebrile, he still on small dose of Levophed of 5.2 mics per minute. He had hemodialysis for last 2 days, yesterday he had 3 L of fluid removed, and had 2 L of fluid removed the day before. His labs have been reviewed, showing white blood cell count of 9.0, hemoglobin is 10.9, electrolytes were within normal limits, B1 is 51 creatinine is 4.6. Patient has been afebrile, influenza screen was negative, blood culture has shown no growth at 48 hour jv. Remains on empiric antibiotic coverage in the form of Zosyn. No nausea, vomiting or diarrhea, patient up in the chair, he is using bedside commode, denies any acute distress. Lung sounds are diminished breath sounds at the bases, with scattered rhonchi and crackles. Objective - Vital Signs Vital signs: Vital Signs Temp 97.3 F L 05/11/19 08:00 Pulse 86 05/11/19 08:00 Resp 18 05/11/19 08:00 BP 94/66 05/11/19 08:00 Pulse Ox 97 05/11/19 08:00 Intake & Output 05/10/19 05/11/19 05/11/19 18:59 06:59 18:59 Intake Total 420.332 378.205 41.97 Output Total 0 0 0 Balance 420.332 378.205 41.97 Intake: IV 300 340 40 Normal Saline 200 240 40 Piperacillin-Tazobactam 3 100 100 .375 gm In Sodium Chloride 0.9% 100 ml @ 25 mls/hr IVPB Q12HR [facility] Rx #:[id number] Intake, IV Titration 120.332 38.205 1.97 Amount Norepinephrine 32 mg In 120.332 38.205 1.97 Sodium Chloride 0.9% 218 ml @ 0.05 MCG/KG/MIN 2. 053 mls/hr IV .Q24H [facility] Rx#:[id number] Output: Urine 0 0 0 Other: Voiding Method Urinal Urinal Urinal - Exam GENERAL EXAM: Alert, very pleasant, 83-year-old white male, and 4 L of oxygen with pulse ox of 97% comfortable in no apparent distress. HEAD: Normocephalic/atraumatic. EYES: Normal reaction of pupils, equal size. Conjunctiva pink, sclera white. NOSE: Clear with pink turbinates. THROAT: No erythema or exudates. NECK: No masses, no JVD, no thyroid enlargement, no adenopathy. CHEST: No chest wall deformity. Symmetrical expansion. LUNGS: Equal air entry with diminished breath sounds at the bases, with basilar crackles CVS: Regular rate and rhythm, normal S1 and S2, no gallops, no murmurs, no rubs ABDOMEN: Soft, nontender. No hepatosplenomegaly, normal bowel sounds, no guarding or rigidity. EXTREMITIES: No clubbing, no cyanosis, 2+ pulses and upper and lower extremities. Right arm fistula with positive bruit and thrill. MUSCULOSKELETAL: Muscle strength and tone normal. SPINE: No scoliosis or deformity SKIN: No rashes CENTRAL NERVOUS SYSTEM: Alert and oriented -3. No focal deficits, tone is normal in all 4 extremities. PSYCHIATRIC: Alert and oriented -3. Appropriate affect. Intact judgment and insight. - Labs CBC & Chem 7: 05/11/19 04:37 05/11/19 04:37 Labs: Abnormal Lab Results - Last 24 Hours (Table) 05/11/19 05/11/19 Range/Units 04:37 04:37 RBC 3.22 L (4.30-5.90) m/uL Hgb 10.9 L (13.0-17.5) gm/dL Hct 36.1 L (39.0-53.0) % MCV 112.3 H (80.0-100.0) fL MCHC 30.3 L (31.0-37.0) g/dL Neutrophils # 8.0 H (1.3-7.7) k/uL Lymphocytes # 0.6 L (1.0-4.8) k/uL Macrocytosis Marked A BUN 51 H (9-20) mg/dL Creatinine 4.60 H (0.66-1.25) mg/dL Glucose 155 H (74-99) mg/dL Microbiology - Last 24 Hours (Table) 05/08/19 17:29 Blood Culture - Preliminary Blood No Growth after 48 hours Assessment and Plan Plan: Assessment: #1. Acute metabolic encephalopathy, improving #2. Hypotension, possibly related to sepsis or infectious process, and acute CHF systolic dysfunction #3. Rule out pneumonia #4. Fluid overload, acute on chronic exacerbation of congestive heart failure, with systolic dysfunction, with the EF of 45-50% #5. Recent admission for acute multilobar pneumonia secondary to E. coli #6. Acute hypoxic respiratory failure, multifactorial, related to acute CHF exacerbation and possibility of pneumonia is not excluded #7. End-stage renal disease, on hemodialysis #8. Strep underlying COPD #9. Chronic atrial fibrillation #10. Dyslipidemia #11. History of macular degeneration #12. History of glaucoma Plan: Continue current antibiotics, will obtain a follow-up chest x-ray today, we will send a sputum culture, hemodynamically patient continues to require small dose of Levophed, continue with this dose of hydrocortisone, and Florinef, and Midrin, continue nebulized bronchodilators. Encourage deep breathing and coughing. Hemodialysis treatments per nephrology, GI and DVT prophylaxis. We'll continue to monitor in the ICU I performed a history & physical examination of the patient and discussed their management with my nurse practitioner, Mariela Irene. I reviewed the nurse practitioner's note and agree with the documented findings and plan of care. Lung sounds are positive for diminished breath sounds with bilateral basilar crackles. The findings and the impression was discussed with the patient. I attest to the documentation by the nurse practitioner. Time with Patient: Less than 30
--- NOTE | 2019-05-11 09:39 | P.PN ---
Subjective Patient is seen in follow-up for end-stage renal disease. Complains of a cough. Denies chest pain or shortness of breath. Maintain on low-dose Levophed. He is also on IV steroids. Vital signs are stable. General: The patient appeared well nourished and normally developed. HEENT: Head exam is unremarkable. Neck is without jugular venous distension. LUNGS: Breath sounds decreased. HEART: Rate and Rhythm are regular. First and second heart sounds normal. No murmurs, rubs or gallops. ABDOMEN: Abdominal exam reveals normal bowel sounds. Non-tender and non- distended. No evidence of peritonitis. EXTREMITITES: 1+ edema. Objective - Vital Signs Vital signs: Vital Signs Temp 97.3 F L 05/11/19 08:00 Pulse 72 05/11/19 09:00 Resp 9 L 05/11/19 09:00 BP 83/69 05/11/19 09:00 Pulse Ox 97 05/11/19 09:00 Intake & Output 05/10/19 05/11/19 05/11/19 18:59 06:59 18:59 Intake Total 420.332 378.205 64.331 Output Total 0 0 0 Balance 420.332 378.205 64.331 Intake: IV 300 340 60 Normal Saline 200 240 60 Piperacillin-Tazobactam 3 100 100 .375 gm In Sodium Chloride 0.9% 100 ml @ 25 mls/hr IVPB Q12HR [facility] Rx #:[id number] Intake, IV Titration 120.332 38.205 4.331 Amount Norepinephrine 32 mg In 120.332 38.205 4.331 Sodium Chloride 0.9% 218 ml @ 0.05 MCG/KG/MIN 2. 053 mls/hr IV .Q24H [facility] Rx#:[id number] Output: Urine 0 0 0 Other: Voiding Method Urinal Urinal Urinal - Labs CBC & Chem 7: 05/11/19 04:37 05/11/19 04:37 Labs: Abnormal Lab Results - Last 24 Hours (Table) 05/11/19 05/11/19 Range/Units 04:37 04:37 RBC 3.22 L (4.30-5.90) m/uL Hgb 10.9 L (13.0-17.5) gm/dL Hct 36.1 L (39.0-53.0) % MCV 112.3 H (80.0-100.0) fL MCHC 30.3 L (31.0-37.0) g/dL Neutrophils # 8.0 H (1.3-7.7) k/uL Lymphocytes # 0.6 L (1.0-4.8) k/uL Macrocytosis Marked A BUN 51 H (9-20) mg/dL Creatinine 4.60 H (0.66-1.25) mg/dL Glucose 155 H (74-99) mg/dL Microbiology - Last 24 Hours (Table) 05/08/19 17:29 Blood Culture - Preliminary Blood No Growth after 48 hours Assessment and Plan Plan: Assessment: 1. End-stage renal disease maintained on hemodialysis 4 times per week outpatient. 2. Chronic hypotension maintained on midodrine. Also on IV steroids, Florinef and low-dose Levophed at this time. 3. Anemia of chronic kidney disease. Hemoglobin at goal. 4. Acute on chronic diastolic CHF with mild to moderate mitral and tricuspid regurgitation. Plan: 2-hour hemodialysis treatment today with goal 1-2 L ultrafiltration. Another treatment tomorrow per his outpatient schedule. Wean Levophed.
--- NOTE | 2019-05-11 09:52 | XR ---
EXAMINATION TYPE: XR chest 1V portable DATE OF EXAM: 05/11/2019 COMPARISON: 05/08/2019 HISTORY: Congestive heart failure, fluid overload, shortness of breath. TECHNIQUE: Single frontal view of the chest is obtained. FINDINGS: There is a similar-appearing small layering left pleural effusion. Improved aeration of th e lungs with patchy areas of probable atelectasis and confluent pulmonary edema. Mild interstitial pu lmonary edema throughout. Trace on the right minor fissural fluid. Cardia mediastinal silhouette is e nlarged. Diffuse osseous demineralization is seen with degenerative changes of the osseous structures . IMPRESSION: Improving fluid overload with mild interstitial pulmonary edema, scattered areas of prob able atelectasis and confluent pulmonary edema, and small layering left pleural effusion.
[2019-05-11] MEDS: SYMBICORT 160-4.5 MCG INHALER INHALATION SCH ×2 (10:00→19:13)
[2019-05-11] MEDS: IPRATROPIUM-ALBUTEROL 3 ML NEB INHALATION SCH ×4 (10:00→19:13)
[2019-05-11] MEDS: THIAMINE 100 MG TAB PO SCH (11:56)
[2019-05-11] MEDS: FOLIC ACID 1 MG TAB PO SCH (11:56)
[2019-05-11] MEDS: SODIUM CHLORIDE 0.9% 1,000 ML IV SCH (15:05)
[2019-05-11] MEDS: guaiFENesin 600 MG TABLET.ER PO PRN (16:09)
[2019-05-11] MEDS: levOCARNitine 330 MG TABLET PO SCH (16:55)
[2019-05-11] MEDS: ALPRAZolam 0.25 MG TAB PO SCH (20:05)
[2019-05-11] MEDS: PRAVASTATIN SODIUM 20 MG TAB PO SCH (20:09)
[2019-05-11] MEDS: levETIRAcetam 250 MG TAB PO SCH (20:21)
--- NOTE | 2019-05-11 21:12 | PN ---
PROGRESS NOTE DATE OF SERVICE: 05/11/2019 This 83-year-old gentleman who was admitted with shortness of breath also had CHF acute exacerbation, also acute hypoxic respiratory failure, cardiogenic shock also. The most recent chest x-ray which was done today reviewed personally by me showed persistent features of atelectasis and as well as congestive heart failure. Nephrology has seen the patient and recommending 2 hour hemodialysis only 1-2 L of ultrafiltration. The patient closely monitored at this time. PAST MEDICAL HISTORY: Reviewed. REVIEW OF SYSTEM: Cardiovascular: No angina or palpitations. Respiration: As mentioned earlier. GI as mentioned earlier. no dysuria. Nervous systems: No numbness or weakness. Serum cortisone is like 21 and NT proBNP is significantly elevated. CURRENT MEDICATIONS: Reviewed and include: 1. DuoNeb q.i.d. and p.r.n. 2. Xanax 0.5 q.h.s. 3. Symbicort 160/4.5 two puffs b.i.d. 4. Iron sulfate 320 mg daily. 5. Florinef 0.2 b.i.d. 6. Folic acid 1 mg daily. 7. Neurontin 100 mg t.i.d. 8. Mucinex. 9. Heparin. 10.Solu-Cortef 100 mg IV q.h.s. 11.Cephulac. 12.Keppra 250 mg q.h.s. 13.Magnesium oxide 400 mg daily. 14.Melatonin 3 mg q.h.s. 15.Midodrine 10 mg p.o. t.i.d. 16.Narcan. 17.Zosyn. 18.Requip. 19.Vitamin B1. 20.Timoptic. 21.Demadex. PHYSICAL EXAM: Patient is alert, oriented x3. Pulse is 86. Blood pressure 90/56, respiration 15, temp is normal, pulse ox 98% on 2 L. HEENT: Conjunctivae normal. Oral mucosa moist. NECK is jugular venous distention at the root of the neck. CARDIOVASCULAR: S1, S2 muffled. RESPIRATION: Ejection systolic murmur. RESPIRATORY: Breath sounds diminished in the bases. Bilateral scattered rhonchi and crackles. ABDOMEN: Soft, nontender. LEGS: Bilateral leg edema. NERVOUS System: Diffusely weak. LABS: WBC 9, hemoglobin 10.9, platelets are 167. Sodium 140, potassium 4.7, creatinine is 4.60. Other labs are noted. Troponins are noted. Chest x-ray reviewed as mentioned earlier. ASSESSMENT: 1. Congestive heart failure acute exacerbation with acute on chronic systolic dysfunction, ejection fraction 40-50 percent with acute hypoxic hypercarbic respiratory failure on BiPAP. 2. Hypotension possibly cardiogenic shock, multifactorial, rule out sepsis. 3. Change in mental status, metabolic encephalopathy, multifactorial. 4. Bilateral atelectasis. 5. Possible bronchopneumonia. 6. Hyponatremia. 7. Troponin 0.05, indeterminate possible type 2 myocardial infarction with supply/demand mismatch. 8. BNP elevated up to 116,000. 9. Hypoalbuminemia with mild to moderate protein calorie malnutrition. 10.Anemia, macrocytic anemia of chronic disease. 11.Thrombocytopenia. 12.History of atrial fibrillation, paroxysmal. 13.History of chronic obstructive pulmonary disease. 14.History of hyperlipidemia. 15.History of hypotension. 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 17.History of glaucoma. 18.History of macular degeneration. 19.History of degenerative joint disease. 20.Remote history of nicotine dependence. 21.Gait dysfunction. 22.FULL CODE. RECOMMENDATIONS AND DISCUSSION: In this 83-year-old gentleman who presented with multiple complex medical issues. We will monitor the patient closely. Continue the current medications, management and symptomatic treatment. Otherwise continue with IV steroids empirically and continue with Florinef. Monitor closely. Avoid antihypertensive medications. Otherwise, continue with hemodialysis. Monitor fluids and electrolytes balance closely. Also recommend continue the course of bronchodilators also. Guarded prognosis because of multiple complex medical issues. Further recommendations to follow. Influenza negative. MMODL / IJN: [id number] /
[2019-05-12 05:24] LABS: Basophils % (A) 0 %; Eosinophils % (A) 0 %; HCT 34.8 % (39.0-53.0); HGB 10.7 gm/dL (13.0-17.5); Hypochromasia Slight; Lymphocytes # (A) 0.4 k/uL (1.0-4.8); Lymphocytes % (A) 6 %; MCH 33.4 pg (25.0-35.0); MCHC 30.7 g/dL (31.0-37.0); Macrocytosis Marked; Mean Platelet Volume 8.7; Monocytes # (A) 0.3 k/uL (0-1.0); Monocytes % (A) 4 %; Neutrophils # (A) 6.7 k/uL (1.3-7.7); Neutrophils % (A) 90 %; Platelet Count 135 k/uL (150-450); RBC 3.19 m/uL (4.30-5.90); RDW 14.3 % (11.5-15.5); WBC 7.5 k/uL (3.8-10.6)
[2019-05-12 05:38] LABS: Calcium 9.5 mg/dL (8.4-10.2); Potassium 5.2 mmol/L (3.5-5.1)
[2019-05-12] MEDS: MIDODRINE 5 MG TAB PO SCH ×3 (07:30→17:03)
[2019-05-12] MEDS: HYDROCORTISONE SUCCINATE 100 MG/2 ML VIAL IV SCH (07:31)
[2019-05-12] MEDS: levOCARNitine 330 MG TABLET PO SCH ×3 (07:31→17:03)
--- NOTE | 2019-05-12 08:12 | XR ---
EXAMINATION TYPE: XR chest 1V portable DATE OF EXAM: 05/12/2019 Comparison: 05/11/2019 Clinical History: 83-year-old male SOB, Pulmonary Edema Findings: Heart mildly enlarged. Diffuse interstitial densities persist. Continued [id number] left pleur al effusion. Impression: Continued CHF with interstitial pulmonary edema. [id number] left effusion with adjacent atelec tasis and/or consolidation.
[2019-05-12] MEDS: MAGNESIUM OXIDE 400 MG TAB PO SCH (08:54)
[2019-05-12] MEDS: GABAPENTIN 100 MG CAP PO SCH ×3 (08:54→21:02)
[2019-05-12] MEDS: PANTOPRAZOLE 40 MG TABLET PO SCH (08:54)
[2019-05-12] MEDS: FERROUS SULFATE 325 MG TAB PO SCH (08:54)
[2019-05-12] MEDS: PIPERACILLIN-TAZOBACTAM 3.375 GM in SODIUM CHLORIDE 0.9% 100 ML IVPB SCH ×2 (08:55→21:03)
[2019-05-12] MEDS: rOPINIRole HCL 4 MG TABLET PO SCH ×3 (08:55→21:03)
[2019-05-12] MEDS: HEPARIN SODIUM,PORCINE 5,000 UNIT/ML 1 ML VIAL SQ SCH ×2 (08:55→21:02)
[2019-05-12] MEDS: TORSEMIDE 20 MG TAB PO SCH ×2 (08:56→21:02)
[2019-05-12] MEDS: TIMOLOL 0.5% OPHTH DROPS 5 ML BTL BOTH EYES SCH ×2 (08:56→21:12)
[2019-05-12] MEDS: VIT A,C & E-LUTEIN-MINERALS 1 EACH TAB PO SCH (08:56)
[2019-05-12] MEDS: FLUDROCORTISONE 0.1 MG TAB PO SCH ×2 (08:57→21:02)
[2019-05-12] MEDS: IPRATROPIUM-ALBUTEROL 3 ML NEB INHALATION SCH ×4 (09:22→20:23)
--- NOTE | 2019-05-12 09:27 | P.PN ---
Subjective Progress Note Date: 05/12/19 Principal diagnosis: Metabolic encephalopathy, hypertension, fluid overload On 05/11/2019 reason is seen in follow-up in the intensive care unit, he is awake and alert, his mentation has much improved, breathing easier, currently on 4 L of oxygen with pulse ox of 97%, afebrile, he still on small dose of Levophed of 5.2 mics per minute. He had hemodialysis for last 2 days, yesterday he had 3 L of fluid removed, and had 2 L of fluid removed the day before. His labs have been reviewed, showing white blood cell count of 9.0, hemoglobin is 10.9, electrolytes were within normal limits, B1 is 51 creatinine is 4.6. Patient has been afebrile, influenza screen was negative, blood culture has shown no growth at 48 hour jv. Remains on empiric antibiotic coverage in the form of Zosyn. No nausea, vomiting or diarrhea, patient up in the chair, he is using bedside commode, denies any acute distress. Lung sounds are diminished breath sounds at the bases, with scattered rhonchi and crackles. On 05/12/2019 patient is seen in follow-up in the intensive care unit, slightly more sleepy on today's exam, but easily arousable, does not appear to be in any acute distress, currently on 3 L of oxygen pulse ox is 96%, he is afebrile, systolic blood pressure in the 80s and 90s, and diastolic blood pressures in the 50s and 60s. Patient had hemodialysis on the morning of liters of fluid was taken off, this morning he is having on of the hemodialysis treatment with the goal of removing 2 L of fluid. Today's chest x-ray was reviewed with Dr. Horton still showing CHF with interstitial pulmonary edema. In addition patient is bronchospastic and congested on today's exam, he is bringing up large amount of michaud colored thick secretions. He is on empiric antibiotic coverage in the form of Zosyn, sputum and blood cultures have been sent, and are pending at this time. Patient is on small amount of Levophed currently running at 1-2 mics per minute and plan in normal saline at a rate of 20 ML per hour Objective - Vital Signs Vital signs: Vital Signs Temp 98.3 F 05/12/19 08:00 Pulse 81 05/12/19 08:00 Resp 23 01/03/20 08:00 BP 86/52 05/12/19 08:00 Pulse Ox 96 05/12/19 08:00 Intake & Output 05/11/19 05/12/19 05/12/19 18:59 06:59 18:59 Intake Total 260.459 365.128 41.252 Output Total 1500 0 0 Balance -1239.541 365.128 41.252 Intake: IV 240 340 40 Normal Saline 240 240 40 Piperacillin-Tazobactam 3 100 .375 gm In Sodium Chloride 0.9% 100 ml @ 25 mls/hr IVPB Q12HR [facility] Rx #:[id number] Intake, IV Titration 20.459 25.128 1.252 Amount Norepinephrine 32 mg In 20.459 25.128 1.252 Sodium Chloride 0.9% 218 ml @ 0.05 MCG/KG/MIN 2. 053 mls/hr IV .Q24H [facility] Rx#:[id number] Output: Urine 0 0 0 Hemodialysis 1500 Other: Voiding Method Urinal Urinal Urinal - Exam GENERAL EXAM: Alert, very pleasant, 83-year-old white male, and 3 L of oxygen with pulse ox of 97% comfortable in no apparent distress. HEAD: Normocephalic/atraumatic. EYES: Normal reaction of pupils, equal size. Conjunctiva pink, sclera white. NOSE: Clear with pink turbinates. THROAT: No erythema or exudates. NECK: No masses, no JVD, no thyroid enlargement, no adenopathy. CHEST: No chest wall deformity. Symmetrical expansion. LUNGS: Equal air entry with diminished breath sounds at the bases, with diffuse rhonchi CVS: Regular rate and rhythm, normal S1 and S2, no gallops, no murmurs, no rubs ABDOMEN: Soft, nontender. No hepatosplenomegaly, normal bowel sounds, no guarding or rigidity. EXTREMITIES: No clubbing, no cyanosis, 2+ pulses and upper and lower extremities. Right arm fistula with positive bruit and thrill. MUSCULOSKELETAL: Muscle strength and tone normal. SPINE: No scoliosis or deformity SKIN: No rashes CENTRAL NERVOUS SYSTEM: Alert and oriented -3. No focal deficits, tone is normal in all 4 extremities. PSYCHIATRIC: Alert and oriented -3. Appropriate affect. Intact judgment and insight. - Labs CBC & Chem 7: 05/12/19 05:01 05/12/19 05:01 Labs: Abnormal Lab Results - Last 24 Hours (Table) 05/12/19 05/12/19 Range/Units 05:01 05:01 RBC 3.19 L (4.30-5.90) m/uL Hgb 10.7 L (13.0-17.5) gm/dL Hct 34.8 L (39.0-53.0) % MCV 109.0 H (80.0-100.0) fL MCHC 30.7 L (31.0-37.0) g/dL Plt Count 135 L (150-450) k/uL Lymphocytes # 0.4 L (1.0-4.8) k/uL Macrocytosis Marked A Potassium 5.2 H (3.5-5.1) mmol/L BUN 50 H (9-20) mg/dL Creatinine 4.78 H (0.66-1.25) mg/dL Glucose 131 H (74-99) mg/dL Microbiology - Last 24 Hours (Table) 05/11/19 13:15 Gram Stain - Preliminary Sputum 05/08/19 17:29 Blood Culture - Preliminary Blood No Growth after 72 hours Assessment and Plan Plan: Assessment: #1. Acute metabolic encephalopathy, improving #2. Hypotension, possibly related to sepsis or infectious process, and acute CHF systolic dysfunction #3. Rule out pneumonia #4. Fluid overload, acute on chronic exacerbation of congestive heart failure, with systolic dysfunction, with the EF of 45-50% #5. Recent admission for acute multilobar pneumonia secondary to E. coli #6. Acute hypoxic respiratory failure, multifactorial, related to acute CHF exacerbation and possibility of pneumonia is not excluded #7. End-stage renal disease, on hemodialysis #8. Strep underlying COPD #9. Chronic atrial fibrillation #10. Dyslipidemia #11. History of macular degeneration #12. History of glaucoma Plan: Continue with Zosyn for antibiotic coverage, awaiting results of the sputum and blood cultures, patient has been afebrile but he is bringing up large amount of michaud colored thick secretions, provide a flutter valve, encourage deep breathing and coughing, maintain aspiration precautions, a chest x-ray has been reviewed still showing changes of interstitial pulmonary edema, he is having a hemodialysis treatment today with the goal of removing 2 L of fluid. Switched to Symbicort to Pulmicort and Perforomist, and we'll switch hydrocortisone to IV Solu-Medrol, continue DuoNeb. I performed a history & physical examination of the patient and discussed their management with my nurse practitioner, Mariela Irene. I reviewed the nurse practitioner's note and agree with the documented findings and plan of care. Lung sounds are positive for diminished breath sounds with bilateral basilar crackles. The findings and the impression was discussed with the patient. I attest to the documentation by the nurse practitioner. Time with Patient: Less than 30
--- NOTE | 2019-05-12 09:39 | P.PN ---
Subjective Patient is seen in follow-up for end-stage renal disease. Complains of a cough. Denies chest pain or shortness of breath. Levophed had to be resumed at a low dose during dialysis. Also maintained on IV Solu-Medrol and oral Florinef. Vital signs are stable. General: The patient appeared well nourished and normally developed. HEENT: Head exam is unremarkable. Neck is without jugular venous distension. LUNGS: Breath sounds decreased. HEART: Rate and Rhythm are regular. First and second heart sounds normal. No murmurs, rubs or gallops. ABDOMEN: Abdominal exam reveals normal bowel sounds. Non-tender and non- distended. No evidence of peritonitis. EXTREMITITES: Trace edema. Objective - Vital Signs Vital signs: Vital Signs Temp 98.3 F 05/12/19 08:00 Pulse 70 05/12/19 09:23 Resp 23 05/12/19 08:00 BP 86/52 05/12/19 08:00 Pulse Ox 96 05/12/19 08:00 Intake & Output 05/11/19 05/12/19 05/12/19 18:59 06:59 18:59 Intake Total 260.459 365.128 41.252 Output Total 1500 0 0 Balance -1239.541 365.128 41.252 Intake: IV 240 340 40 Normal Saline 240 240 40 Piperacillin-Tazobactam 3 100 .375 gm In Sodium Chloride 0.9% 100 ml @ 25 mls/hr IVPB Q12HR [facility] Rx #:[id number] Intake, IV Titration 20.459 25.128 1.252 Amount Norepinephrine 32 mg In 20.459 25.128 1.252 Sodium Chloride 0.9% 218 ml @ 0.05 MCG/KG/MIN 2. 053 mls/hr IV .Q24H [facility] Rx#:[id number] Output: Urine 0 0 0 Hemodialysis 1500 Other: Voiding Method Urinal Urinal Urinal - Labs CBC & Chem 7: 05/12/19 05:01 05/12/19 05:01 Labs: Abnormal Lab Results - Last 24 Hours (Table) 05/12/19 05/12/19 Range/Units 05:01 05:01 RBC 3.19 L (4.30-5.90) m/uL Hgb 10.7 L (13.0-17.5) gm/dL Hct 34.8 L (39.0-53.0) % MCV 109.0 H (80.0-100.0) fL MCHC 30.7 L (31.0-37.0) g/dL Plt Count 135 L (150-450) k/uL Lymphocytes # 0.4 L (1.0-4.8) k/uL Macrocytosis Marked A Potassium 5.2 H (3.5-5.1) mmol/L BUN 50 H (9-20) mg/dL Creatinine 4.78 H (0.66-1.25) mg/dL Glucose 131 H (74-99) mg/dL Microbiology - Last 24 Hours (Table) 05/11/19 13:15 Gram Stain - Preliminary Sputum 05/08/19 17:29 Blood Culture - Preliminary Blood No Growth after 72 hours Assessment and Plan Plan: Assessment: 1. End-stage renal disease maintained on hemodialysis 4 times per week outpatient. 2. Chronic hypotension maintained on midodrine. Also on IV steroids, Florinef and low-dose Levophed at this time. 3. Anemia of chronic kidney disease. Hemoglobin at goal. 4. Acute on chronic diastolic CHF with mild to moderate mitral and tricuspid regurgitation. 5. Productive cough. He is on IV antibiotics. Sputum culture pending. Plan: Currently seen while undergoing hemodialysis. Patient's volume status has improved quite a bit. Will plan for next treatment on Wednesday unless there is a significant change in his volume status in the next 24 hours. Wean Levophed.
[2019-05-12] MEDS: FOLIC ACID-VIT B COMPLEX-VIT C 1 CAP PO SCH (09:42)
[2019-05-12] MEDS: SYMBICORT 160-4.5 MCG INHALER INHALATION SCH (09:45)
[2019-05-12] MEDS: methylPREDNISolone SOD SUCCI 125 MG/2 ML VIAL IV SCH ×2 (11:45→17:56)
[2019-05-12] MEDS: THIAMINE 100 MG TAB PO SCH (11:45)
[2019-05-12] MEDS: FOLIC ACID 1 MG TAB PO SCH (11:51)
[2019-05-12] MEDS ORDERED: HYDROcodone/APAP 15 ML SOLUTION PO PRN (13:41)
[2019-05-12] MEDS: NOREPINEPHRINE 32 MG in SODIUM CHLORIDE 0.9% 218 ML IV SCH (15:37)
[2019-05-12] MEDS: SODIUM CHLORIDE 0.9% 1,000 ML IV SCH (17:00)
--- NOTE | 2019-05-12 20:17 | PN ---
PROGRESS NOTE DATE OF SERVICE: 05/12/2019 This 83-year-old gentleman who was admitted with shortness of breath, CHF acute exacerbation as well persistent hypotension. The patient underwent hemodialysis about 2 hours, 1.5 L has been removed. The patient being closely monitored. Patient also had features of change in mental status also. Patient being closely monitored. Multiple consultants including pulmonology and nephrology are following the patient closely. PAST MEDICAL HISTORY: Reviewed. REVIEW OF SYSTEM: Cardiovascular system: No angina or palpitations. Respiration: As mentioned earlier. GI as mentioned earlier. no dysuria. Nervous systems: As mentioned earlier. Central nervous system: As mentioned earlier. MEDICATIONS: Reviewed and include: 1. [place] elixir 2.5 mg q.6 p.r.n. 2. Albuterol. 3. DuoNeb q.i.d. and p.r.n. 4. Xanax 0.5 q.h.s. 5. Pulmicort 1 mg b.i.d. 6. Iron sulfate 325 mg daily. 7. Florinef 0.2 t.i.d. 8. Mucinex. 9. Heparin. 10.Cephulac. 11.Keppra. 12.Magnesium oxide. 13.Melatonin. 14.Solu-Medrol 60 IV q.6. 15.ProAmatine. 16.Multivitamins. 17.Narcan. 18.Levophed drip. 19.Zosyn 3.375 IV q.6. 20.Requip. 21.Vitamin B1. 22.Timoptic. 23.Demadex. PHYSICAL EXAM: Patient is alert, oriented x3. Pulse 76, blood pressure 105/60, respiration 16, temperature 97.4, pulse ox 93 percent on 3 L. HEENT: Conjunctivae normal. NECK: No jugular venous distention. CARDIOVASCULAR: S1, S2 muffled. Ejection systolic murmur. RESPIRATORY: Breath sounds diminished in the bases. A few scattered rhonchi and crackles. ABDOMEN: Soft, nontender. No mass palpable. LEGS: No edema. No swelling. CENTRAL NERVOUS SYSTEM: Diffusely weak. LABS: WBC 7.3, hemoglobin 10.7. Sodium 139, potassium 3.2, creatinine 4.78. Otherwise, other labs are chest x-ray done today which is personally reviewed by me showed cardiomegaly and bilateral infiltrate, slightly better. ASSESSMENT: 1. Congestive heart failure acute exacerbation with acute on chronic systolic dysfunction ejection fraction 40 to 50% with acute hypoxic hypercarbic respiratory failure on BiPAP, present on admission. 2. Hypotension possibly cardiogenic shock, multifactorial, rule out sepsis. 3. Change in mental status, metabolic encephalopathy, multifactorial. 4. Bronchopneumonia possibly gram-negative. 5. Bilateral atelectasis with possible bronchopneumonia. 6. Hyponatremia. 7. Troponin 0.05 indeterminate with possible type 2 myocardial infarction with supply/demand mismatch. 8. BNP elevated up to 116,000. 9. Hypoalbuminemia with mild to moderate protein calorie malnutrition. 10.Anemia, macrocytic anemia of chronic disease. 11.Thrombocytopenia. 12.History of atrial fibrillation paroxysmal. 13.History of chronic obstructive pulmonary disease. 14.Hyperlipidemia. 15.Hypotension. 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 17.History of glaucoma. 18.History of macular degeneration. 19.History of degenerative joint disease. 20.Remote history of nicotine dependence. 21.Gait dysfunction. 22.FULL CODE. RECOMMENDATIONS AND DISCUSSION: Recommend to continue current medications, management and symptomatic treatment. Otherwise, at this time, continue with bronchodilators. Continue with hemodialysis cautiously. The patient is on and off Levophed drip at this time. The cultures are showing sputum culture showed gram-negative bacilli. We will continue to monitor. Patient is on broad-spectrum IV antibiotics as mentioned earlier. The prognosis guarded because of multiple complex medical issues, we will continue to monitor. Closely follow with Dr. Horton and Nephrology. Discussed with the family at the bedside. Further recommendations to follow. MMODL / IJN: [id number] /
[2019-05-12] MEDS: BUDESONIDE 1 MG/2 ML NEBU INHALATION SCH (20:23)
[2019-05-12] MEDS: FORMOTEROL FUMARATE 20 MCG/2 ML NEBU INHALATION SCH (20:23)
[2019-05-12] MEDS: MELATONIN 3 MG TABLET PO SCH (21:02)
[2019-05-12] MEDS: PRAVASTATIN SODIUM 20 MG TAB PO SCH (21:02)
[2019-05-12] MEDS: ALPRAZolam 0.25 MG TAB PO SCH (21:03)
[2019-05-12] MEDS: levETIRAcetam 250 MG TAB PO SCH (21:03)
[2019-05-13] MEDS: methylPREDNISolone SOD SUCCI 125 MG/2 ML VIAL IV SCH ×4 (01:00→19:21)
[2019-05-13 05:18] LABS: Basophils % (A) 0 %; Eosinophils % (A) 1 %; HCT 35.2 % (39.0-53.0); HGB 10.8 gm/dL (13.0-17.5); Hypochromasia Slight; Lymphocytes # (A) 0.4 k/uL (1.0-4.8); Lymphocytes % (A) 6 %; MCH 33.9 pg (25.0-35.0); MCHC 30.7 g/dL (31.0-37.0); MCV 110.1 fL (80.0-100.0); Mean Platelet Volume 8.7; Monocytes # (A) 0.2 k/uL (0-1.0); Monocytes % (A) 3 %; Neutrophils # (A) 5.5 k/uL (1.3-7.7); Neutrophils % (A) 90 %; Platelet Count 125 k/uL (150-450); RBC 3.19 m/uL (4.30-5.90); RDW 14.4 % (11.5-15.5); WBC 6.1 k/uL (3.8-10.6)
[2019-05-13 05:22] LABS: Macrocytosis Marked
[2019-05-13 05:48] LABS: Albumin 3.2 g/dL (3.5-5.0); Potassium 4.9 mmol/L (3.5-5.1)
[2019-05-13] MEDS: MIDODRINE 5 MG TAB PO SCH ×3 (06:59→16:27)
[2019-05-13] MEDS: levOCARNitine 330 MG TABLET PO SCH ×3 (07:00→16:28)
[2019-05-13] MEDS: IPRATROPIUM-ALBUTEROL 3 ML NEB INHALATION SCH ×4 (08:54→19:55)
[2019-05-13] MEDS: BUDESONIDE 1 MG/2 ML NEBU INHALATION SCH ×2 (08:54→19:55)
[2019-05-13] MEDS: FORMOTEROL FUMARATE 20 MCG/2 ML NEBU INHALATION SCH ×2 (08:54→19:55)
[2019-05-13] MEDS: HEPARIN SODIUM,PORCINE 5,000 UNIT/ML 1 ML VIAL SQ SCH ×2 (09:00→21:30)
--- NOTE | 2019-05-13 10:18 | P.PN ---
Subjective Progress Note Date: 05/13/19 Principal diagnosis: Metabolic encephalopathy, hypertension, fluid overload Patient is seen today 05/13/2019 in follow-up in the intensive care unit. He is currently sitting up in a chair at the bedside. More awake and alert today. He did receive hemodialysis yesterday with 1.5 L removed. He is currently maintaining O2 saturations in the 90s on 2 L/m per nasal cannula. He has a 0.9 normal saline at 10 mL per hour. He is still and norepinephrine at 2.6 mcg/m. He is also on midodrine 10 mg before meals 3 times a day. Sputum cultures positive for Klebsiella oxytoca and Sarah. Blood cultures reveal no growth. White count 6.1. Hemoglobin 10.8. Platelet count 125,000. Creatinine 3.87. He is continued on DuoNeb inhalations, Pulmicort and Perforomist inhalations, IV Solu-Medrol. Antibiotics in the form of Zosyn. Objective - Vital Signs Vital signs: Vital Signs Temp 97.6 F 05/13/19 04:00 Pulse 75 05/13/19 09:24 Resp 25 H 05/13/19 07:00 BP 105/71 05/13/19 07:00 Pulse Ox 96 05/13/19 07:00 Intake & Output 05/12/19 05/13/19 05/13/19 18:59 06:59 18:59 Intake Total 350.798 306.5 20 Output Total 1500 0 0 Balance -1149.202 306.5 20 Intake: IV 340 300 20 Normal Saline 240 200 20 Piperacillin-Tazobactam 3 100 100 .375 gm In Sodium Chloride 0.9% 100 ml @ 25 mls/hr IVPB Q12HR [facility] Rx #:[id number] Intake, IV Titration 10.798 6.5 Amount Norepinephrine 32 mg In 10.798 6.5 Sodium Chloride 0.9% 218 ml @ 0.05 MCG/KG/MIN 2. 053 mls/hr IV .Q24H [facility] Rx#:[id number] Output: Urine 0 0 0 Hemodialysis 1500 Other: Voiding Method Urinal Urinal - Exam GENERAL EXAM: Alert, very pleasant, 83-year-old male patient, on 2 L of oxygen with pulse ox of 96% comfortable in no apparent distress. HEAD: Normocephalic/atraumatic. EYES: Normal reaction of pupils, equal size. Conjunctiva pink, sclera white. NOSE: Clear with pink turbinates. THROAT: No erythema or exudates. NECK: No masses, no JVD, no thyroid enlargement, no adenopathy. CHEST: No chest wall deformity. Symmetrical expansion. LUNGS: Equal air entry with diminished breath sounds at the bases, with diffuse rhonchi CVS: Regular rate and rhythm, normal S1 and S2, no gallops, no murmurs, no rubs ABDOMEN: Soft, nontender. No hepatosplenomegaly, normal bowel sounds, no guarding or rigidity. EXTREMITIES: No clubbing, no cyanosis, 2+ pulses and upper and lower extremities. Right arm fistula with positive bruit and thrill. MUSCULOSKELETAL: Muscle strength and tone normal. SPINE: No scoliosis or deformity SKIN: No rashes CENTRAL NERVOUS SYSTEM: No focal deficits, tone is normal in all 4 extremities. PSYCHIATRIC: Alert and oriented -3. Appropriate affect. Intact judgment and insight. - Labs CBC & Chem 7: 05/13/19 05:00 05/13/19 05:00 Labs: Abnormal Lab Results - Last 24 Hours (Table) 05/13/19 05/13/19 Range/Units 05:00 05:00 RBC 3.19 L (4.30-5.90) m/uL Hgb 10.8 L (13.0-17.5) gm/dL Hct 35.2 L (39.0-53.0) % MCV 110.1 H (80.0-100.0) fL MCHC 30.7 L (31.0-37.0) g/dL Plt Count 125 L (150-450) k/uL Lymphocytes # 0.4 L (1.0-4.8) k/uL Macrocytosis Marked A BUN 43 H (9-20) mg/dL Creatinine 3.87 H (0.66-1.25) mg/dL Glucose 166 H (74-99) mg/dL Total Protein 6.0 L (6.3-8.2) g/dL Albumin 3.2 L (3.5-5.0) g/dL Microbiology - Last 24 Hours (Table) 05/11/19 13:15 Gram Stain - Final Sputum Sputum Culture - Final Klebsiella oxytoca Sarah albicans 05/08/19 17:29 Blood Culture - Preliminary Blood No Growth after 96 hours Assessment and Plan Assessment: #1. Acute metabolic encephalopathy, improving #2. Hypotension, possibly related to sepsis or infectious process, and acute CHF systolic dysfunction #3. Rule out pneumonia #4. Fluid overload, acute on chronic exacerbation of congestive heart failure, with systolic dysfunction, with the EF of 45-50% #5. Recent admission for acute multilobar pneumonia secondary to E. coli #6. Acute hypoxic respiratory failure, multifactorial, related to acute CHF exacerbation and possibility of pneumonia is not excluded #7. End-stage renal disease, on hemodialysis #8. Strep underlying COPD #9. Chronic atrial fibrillation #10. Dyslipidemia #11. History of macular degeneration #12. History of glaucoma Plan: The patient was seen and evaluated by Dr. Horton. Medications and labs reviewed. He is currently stable from the pulmonary and critical care standpoint. We'll continue try to wean off the norepinephrine. We will continue to follow and make further recommendations based on his clinical status. I, the cosigning physician, performed a history & physical examination of the patient. Lungs sounds with diffuse rhonchi, diminished Maintaining good O2 saturations in the 90s on 2 L/m per nasal cannula. I discussed the assessment and plan of care with my nurse practitioner, Charity Diallo. I attest to the above note as dictated by her.
[2019-05-13] MEDS: FERROUS SULFATE 325 MG TAB PO SCH (12:28)
[2019-05-13] MEDS: FOLIC ACID 1 MG TAB PO SCH (12:28)
[2019-05-13] MEDS: PANTOPRAZOLE 40 MG TABLET PO SCH (12:28)
[2019-05-13] MEDS: THIAMINE 100 MG TAB PO SCH (12:28)
[2019-05-13] MEDS: GABAPENTIN 100 MG CAP PO SCH ×3 (12:28→21:30)
[2019-05-13] MEDS: FLUDROCORTISONE 0.1 MG TAB PO SCH ×2 (12:29→21:30)
[2019-05-13] MEDS: rOPINIRole HCL 4 MG TABLET PO SCH ×3 (12:29→21:30)
[2019-05-13] MEDS: FOLIC ACID-VIT B COMPLEX-VIT C 1 CAP PO SCH (12:29)
[2019-05-13] MEDS: VIT A,C & E-LUTEIN-MINERALS 1 EACH TAB PO SCH (12:30)
[2019-05-13] MEDS: TORSEMIDE 20 MG TAB PO SCH ×2 (12:30→21:29)
[2019-05-13] MEDS: PIPERACILLIN-TAZOBACTAM 3.375 GM in SODIUM CHLORIDE 0.9% 100 ML IVPB SCH ×2 (12:30→21:31)
[2019-05-13] MEDS: MAGNESIUM OXIDE 400 MG TAB PO SCH (12:34)
[2019-05-13] MEDS: TIMOLOL 0.5% OPHTH DROPS 5 ML BTL BOTH EYES SCH ×2 (12:39→21:31)
--- NOTE | 2019-05-13 14:15 | PN ---
PROGRESS NOTE Patient is seen for followup for end-stage renal disease. He was dialyzed yesterday, we had about 1.5 L of ultrafiltration. He is currently doing well. Levophed is off. Blood pressure is staying around 85 or so systolic. The patient is asymptomatic. Heart rate is 60 per minute. PHYSICAL EXAMINATION: On examination, blood pressure this morning 79/51. Examination of the heart S1, S2. Examination of the lungs, decreased breath sounds at the bases. Abdomen is soft, non- tender. Examination of the lower extremities shows edema, trace bilaterally. [employer]ER exam grossly intact. Patient is moving all 4 extremities. LABS: Show hemoglobin 10.8, sodium 140, potassium 4.9, BUN 43, creatinine 4.37, albumin 3.2. ASSESSMENT: 1. End-stage renal disease, on hemodialysis on a Wednesday, Wednesday, Wednesday schedule, status post dialysis yesterday. We will arrange for dialysis again on Wednesday. 2. Chronic hypotension maintained on midodrine. Agree with discontinuation of Levophed as patient remains asymptomatic. Continue to monitor blood pressure, next treatment will be on Wednesday. 3. Anemia of chronic disease. Hemoglobin at goal. 4. Possible pneumonia maintained on antibiotics. PLAN: Next dialysis on Wednesday. MMODL / IJN: [id number] /
[2019-05-13] MEDS: NOREPINEPHRINE 32 MG in SODIUM CHLORIDE 0.9% 218 ML IV SCH (15:59)
[2019-05-13] MEDS: SODIUM CHLORIDE 0.9% 1,000 ML IV SCH (16:28)
--- NOTE | 2019-05-13 21:01 | PN ---
PROGRESS NOTE DATE OF SERVICE: 05/13/2019 This 83-year-old gentleman with a past medical history of multiple medical problems admitted with significant shortness of breath, CHF acute exacerbation. The patient continues to be hypotensive at this time. Ejection fraction 45-50 percent. The patient is also receiving short course of hemodialysis because of the low blood pressure. The patient is running blood pressure low and patient is on empiric IV steroids. Patient being closely monitored. Patient is off Levophed at this time. Multiple consultants are following the patient closely. Sensorium is slightly improved. The sputum culture showing Klebsiella oxytoca and as well as Sarah albicans. PAST MEDICAL HISTORY: Reviewed. REVIEW OF SYSTEMS: Cardiovascular system: No angina or palpitations. RESPIRATORY: As mentioned earlier. GASTROINTESTINAL: As mentioned earlier. GENITOURINARY: No dysuria. NERVOUS SYSTEM: No numbness, weakness. CURRENT MEDICATIONS: Reviewed and include: 1. [place] 7.5 5 mL q.6 p.r.n. 2. DuoNeb q.i.d. and p.r.n. 3. Xanax 0.5 q.h.s. 4. Pulmicort 1 mg daily. 5. Iron sulfate. 6. Florinef 0.2 b.i.d. 7. Folic acid. 8. Perforomist. 9. Neurontin. 10.Mucinex. 11.Heparin. 12.Cephalexin. 13.Keppra. 14.Magnesium oxide. 15.Melatonin. 16.Solu-Medrol. 17.ProAmatine. 18.Multivitamins. 19.Narcan. 20.Zosyn IV. 21.Pravachol. 22.Requip. 23.Timoptic. 24.Thiamine 100 mg p.o. daily. PHYSICAL EXAMINATION: Patient is alert, oriented x2. Pulse 66, blood pressure 87/51, respiration 26, temperature normal, pulse ox 98% on room air. HEENT: Conjunctivae normal. Oral mucosa moist. NECK is no jugular venous distention. No carotid bruit. No lymph node enlargement. Cardiovascular systems: S1, S2 muffled. RESPIRATION: Breath sounds diminished in the bases. A few scattered rhonchi and crackles. ABDOMEN: Soft, nontender. LEGS: No edema. No swelling. NERVOUS SYSTEM: Diffusely weak and wasted. LAB STUDIES: WBC 6.1, hemoglobin 10.8, sodium 140, potassium 4.9, creatinine 3.87. Chest x-ray done yesterday which was personally reviewed by me showed evidence of bibasilar infiltrate. ASSESSMENT: 1. Congestive heart failure, acute exacerbation with acute on chronic systolic dysfunction, ejection fraction 40-50 percent with acute hypoxic hypercarbic respiratory failure status post BiPAP, present on admission. 2. Klebsiella oxytoca and Sarah albicans from the sputum. 3. Hypotension possibly cardiogenic shock, multifactorial, possible sepsis, present on admission. 4. Change in mental status, metabolic encephalopathy, multifactorial, acute. 5. Bronchopneumonia, possibly gram-negative. 6. Bilateral atelectasis with possible bronchopneumonia. 7. Hyponatremia. 8. Troponin 0.05, indeterminate with possible type 2 myocardial infarction with supply/demand mismatch. 9. BNP elevated to 116,000. 10.Hypoalbuminemia with mild to moderate protein calorie malnutrition. 11.Anemia, microcytic anemia of chronic disease. 12.Thrombocytopenia. 13.History of atrial fibrillation, paroxysmal. 14.History of chronic obstructive pulmonary disease. 15.Hyperlipidemia. 16.Hypotension. 17.History of chronic kidney disease stage 4 on hemodialysis Wednesday, Wednesday, Wednesday. 18.History of glaucoma. 19.History of macular degeneration. 20.History of degenerative joint disease. 21.Remote history of nicotine dependence. 22.Gait dysfunction. 23.FULL CODE. RECOMMENDATIONS AND DISCUSSION: In this 85-year-old gentleman who presented with multiple complex medical issues, we will monitor the patient closely, continue the current medications, continue symptomatic treatment. Otherwise, monitor fluid and electrolytes balance closely. Other than that, I would recommend to add Diflucan to the current regimen. Otherwise, continue the antibiotics. Prognosis guarded because of multiple complex medical issues. Further recommendations to follow. The patient is on high-dose IV steroids. DVT prophylaxis. Further recommendations to follow. MMODL / IJN: [id number] /
[2019-05-13] MEDS: FLUCONAZOLE 100 MG TAB PO SCH (21:30)
[2019-05-13] MEDS: ALPRAZolam 0.25 MG TAB PO SCH (21:30)
[2019-05-13] MEDS: PRAVASTATIN SODIUM 20 MG TAB PO SCH (21:30)
[2019-05-13] MEDS: MELATONIN 3 MG TABLET PO SCH (21:30)
[2019-05-13] MEDS: levETIRAcetam 250 MG TAB PO SCH (21:30)
[2019-05-14] MEDS: methylPREDNISolone SOD SUCCI 125 MG/2 ML VIAL IV SCH ×4 (00:39→16:57)
[2019-05-14 04:50] LABS: Basophils % (A) 0 %; Eosinophils % (A) 0 %; HCT 33.3 % (39.0-53.0); HGB 10.2 gm/dL (13.0-17.5); Hypochromasia Moderate; Lymphocytes # (A) 0.4 k/uL (1.0-4.8); Lymphocytes % (A) 6 %; MCHC 30.5 g/dL (31.0-37.0); MCV 111.7 fL (80.0-100.0); Macrocytosis Marked; Mean Platelet Volume 10.1; Monocytes # (A) 0.2 k/uL (0-1.0); Monocytes % (A) 3 %; Neutrophils # (A) 6.9 k/uL (1.3-7.7); Neutrophils % (A) 91 %; Platelet Count 108 k/uL (150-450); RBC 2.98 m/uL (4.30-5.90); RDW 14.5 % (11.5-15.5); WBC 7.6 k/uL (3.8-10.6)
[2019-05-14 05:05] LABS: Calcium 8.8 mg/dL (8.4-10.2); Potassium 4.8 mmol/L (3.5-5.1)
[2019-05-14] MEDS: levOCARNitine 330 MG TABLET PO SCH ×3 (07:06→16:52)
[2019-05-14] MEDS: MIDODRINE 5 MG TAB PO SCH ×3 (07:06→16:55)
[2019-05-14] MEDS: TIMOLOL 0.5% OPHTH DROPS 5 ML BTL BOTH EYES SCH ×2 (08:10→21:17)
[2019-05-14] MEDS: PANTOPRAZOLE 40 MG TABLET PO SCH (08:11)
[2019-05-14] MEDS: VIT A,C & E-LUTEIN-MINERALS 1 EACH TAB PO SCH (08:12)
[2019-05-14] MEDS: FOLIC ACID-VIT B COMPLEX-VIT C 1 CAP PO SCH (08:12)
[2019-05-14] MEDS: GABAPENTIN 100 MG CAP PO SCH ×3 (08:12→21:17)
[2019-05-14] MEDS: MAGNESIUM OXIDE 400 MG TAB PO SCH (08:12)
[2019-05-14] MEDS: rOPINIRole HCL 4 MG TABLET PO SCH ×3 (08:13→21:16)
[2019-05-14] MEDS: FERROUS SULFATE 325 MG TAB PO SCH (08:13)
[2019-05-14] MEDS: TORSEMIDE 20 MG TAB PO SCH ×2 (08:13→21:16)
[2019-05-14] MEDS: HEPARIN SODIUM,PORCINE 5,000 UNIT/ML 1 ML VIAL SQ SCH ×2 (08:13→21:17)
[2019-05-14] MEDS: FLUDROCORTISONE 0.1 MG TAB PO SCH ×2 (08:14→21:17)
[2019-05-14] MEDS: PIPERACILLIN-TAZOBACTAM 3.375 GM in SODIUM CHLORIDE 0.9% 100 ML IVPB SCH ×2 (08:18→21:16)
[2019-05-14] MEDS: BUDESONIDE 1 MG/2 ML NEBU INHALATION SCH ×2 (08:21→20:30)
[2019-05-14] MEDS: IPRATROPIUM-ALBUTEROL 3 ML NEB INHALATION SCH ×4 (08:21→20:30)
[2019-05-14] MEDS: FORMOTEROL FUMARATE 20 MCG/2 ML NEBU INHALATION SCH ×2 (08:21→20:30)
--- NOTE | 2019-05-14 08:31 | P.PN ---
Subjective Progress Note Date: 05/14/19 Principal diagnosis: Metabolic encephalopathy, hypertension, fluid overload Patient is seen today 05/13/2019 in follow-up in the intensive care unit. He is currently sitting up in a chair at the bedside. More awake and alert today. He did receive hemodialysis yesterday with 1.5 L removed. He is currently maintaining O2 saturations in the 90s on 2 L/m per nasal cannula. He has a 0.9 normal saline at 10 mL per hour. He is still and norepinephrine at 2.6 mcg/m. He is also on midodrine 10 mg before meals 3 times a day. Sputum cultures positive for Klebsiella oxytoca and Sarah. Blood cultures reveal no growth. White count 6.1. Hemoglobin 10.8. Platelet count 125,000. Creatinine 3.87. He is continued on DuoNeb inhalations, Pulmicort and Perforomist inhalations, IV Solu-Medrol. Antibiotics in the form of Zosyn. The patient is seen today 05/14/2019 in follow-up in the intensive care unit. He is currently sitting up in bed. Awake and alert in no acute distress. Having breakfast. Denies any worsening shortness of breath, cough or congestion. He is maintaining O2 saturation in the mid 90s on 2 L/m per nasal cannula. He's been afebrile. Mean arterial pressure greater than 60 and he's been off the norepinephrine. Sputum culture was positive for Klebsiella oxytoca and Sarah area white count 7.6. Hemoglobin 10.2. Creatinine 4.73. Potassium 4.8. Sodium 140. He remains on DuoNeb inhalations, Pulmicort and Perforomist inhalations, IV Solu-Medrol. Antibiotics in form of Zosyn. Diuretics with Demadex 80 mg twice a day. Objective - Vital Signs Vital signs: Vital Signs Temp 97.6 F 05/14/19 04:00 Pulse 76 05/14/19 08:22 Resp 19 05/14/19 07:00 BP 97/56 05/14/19 07:00 Pulse Ox 96 05/14/19 07:00 Intake & Output 05/13/19 05/14/19 05/14/19 18:59 06:59 18:59 Intake Total 347.905 300 20 Output Total 0 0 0 Balance 347.905 300 20 Intake: IV 340 300 20 Normal Saline 240 200 20 Piperacillin-Tazobactam 3 100 100 .375 gm In Sodium Chloride 0.9% 100 ml @ 25 mls/hr IVPB Q12HR [facility] Rx #:[id number] Intake, IV Titration 7.905 Amount Norepinephrine 32 mg In 7.905 Sodium Chloride 0.9% 218 ml @ 0.05 MCG/KG/MIN 2. 053 mls/hr IV .Q24H [facility] Rx#:[id number] Output: Urine 0 0 0 Other: Voiding Method Urinal Urinal # Bowel Movements 1 - Exam GENERAL EXAM: Alert, very pleasant, 83-year-old male patient, on 2 L of oxygen with pulse ox of 96% comfortable in no apparent distress. HEAD: Normocephalic/atraumatic. EYES: Normal reaction of pupils, equal size. Conjunctiva pink, sclera white. NOSE: Clear with pink turbinates. THROAT: No erythema or exudates. NECK: No masses, no JVD, no thyroid enlargement, no adenopathy. CHEST: No chest wall deformity. Symmetrical expansion. LUNGS: Equal air entry with diminished breath sounds at the bases CVS: Regular rate and rhythm, normal S1 and S2, no gallops, no murmurs, no rubs ABDOMEN: Soft, nontender. No hepatosplenomegaly, normal bowel sounds, no guarding or rigidity. EXTREMITIES: No clubbing, no cyanosis, 2+ pulses and upper and lower e xtremities. Right arm fistula with positive bruit and thrill. MUSCULOSKELETAL: Muscle strength and tone normal. SPINE: No scoliosis or deformity SKIN: No rashes CENTRAL NERVOUS SYSTEM: No focal deficits, tone is normal in all 4 extremities. PSYCHIATRIC: Alert and oriented -3. Appropriate affect. Intact judgment and insight. - Labs CBC & Chem 7: 05/14/19 04:40 05/14/19 04:40 Labs: Abnormal Lab Results - Last 24 Hours (Table) 05/14/19 05/14/19 Range/Units 04:40 04:40 RBC 2.98 L (4.30-5.90) m/uL Hgb 10.2 L (13.0-17.5) gm/dL Hct 33.3 L (39.0-53.0) % MCV 111.7 H (80.0-100.0) fL MCHC 30.5 L (31.0-37.0) g/dL Plt Count 108 L (150-450) k/uL Lymphocytes # 0.4 L (1.0-4.8) k/uL Macrocytosis Marked A BUN 60 H (9-20) mg/dL Creatinine 4.73 H (0.66-1.25) mg/dL Glucose 169 H (74-99) mg/dL Microbiology - Last 24 Hours (Table) 05/08/19 17:29 Blood Culture - Preliminary Blood No Growth after 120 hours 05/11/19 13:15 Gram Stain - Final Sputum Sputum Culture - Final Klebsiella oxytoca Sarah albicans Assessment and Plan Assessment: #1. Acute metabolic encephalopathy, improving #2. Hypotension, possibly related to sepsis or infectious process, and acute CHF systolic dysfunction #3. Klebsiella oxytoca pneumonia, currently on Zosyn #4. Fluid overload, acute on chronic exacerbation of congestive heart failure, with systolic dysfunction, with the EF of 45-50% #5. Recent admission for acute multilobar pneumonia secondary to E. coli #6. Acute hypoxic respiratory failure, multifactorial, related to acute CHF exacerbation and possibility of pneumonia is not excluded #7. End-stage renal disease, on hemodialysis #8. Strep underlying COPD #9. Chronic atrial fibrillation #10. Dyslipidemia #11. History of macular degeneration #12. History of glaucoma Plan: The patient was seen and evaluated by Dr. Horton. Medications and labs reviewed. He is currently stable from the pulmonary and critical care standpoint. He could be transferred out of the intensive care unit today. Keeping a mean arterial pressure greater than 60 is acceptable in this patient underwent a low blood pressure and has been asymptomatic. We will continue to follow and make further recommendations based on his clinical status. I, the cosigning physician, performed a history & physical examination of the patient. Lungs sounds diminished. Maintaining good O2 saturations in the 90s on 2 L/m per nasal cannula. I discussed the assessment and plan of care with my nurse practitioner, Charity Diallo. I attest to the above note as dictated by her.
[2019-05-14] MEDS: THIAMINE 100 MG TAB PO SCH (11:42)
[2019-05-14] MEDS: FOLIC ACID 1 MG TAB PO SCH (11:42)
[2019-05-14] MEDS: FLUCONAZOLE 100 MG TAB PO SCH (11:42)
--- NOTE | 2019-05-14 12:56 | PN ---
PROGRESS NOTE Patient is seen for followup for end-stage renal disease. He is currently awake. He is not in any acute distress. Patient remains off all pressors. He has been eating fairly well. The patient will be dialyzed tomorrow. PHYSICAL EXAMINATION: On examination today, blood pressure was 97/56, heart rate of 71 per minute, he is afebrile. Examination of the heart S1, S2. Examination of lungs, decreased breath sounds at bases. Abdomen is soft, nontender. Examination of lower extremities shows no significant edema. FINGERPRINT CLERK exam grossly intact. LAB: Show sodium 140, potassium 4.8, BUN 60, creatinine 4.73, albumin 3.2, hemoglobin 10.2 g/dL. ASSESSMENT: 1. End-stage renal disease, on hemodialysis on a Wednesday, Wednesday, Wednesday schedule as outpatient. The patient will be dialyzed tomorrow. 2. Volume overload, currently improved. 3. Possible pneumonia, maintained on antibiotics. 4. Chronic hypotension, currently on midodrine and patient is off Levophed. 5. Anemia of chronic disease with hemoglobin at 10.2 g/dL. PLAN: Hemodialysis in a.m., UF of about 1-1.5 L as tolerated. MMODL / IJN: [id number] /
[2019-05-14] MEDS: SODIUM CHLORIDE 0.9% 1,000 ML IV SCH (16:55)
[2019-05-14] MEDS: ALPRAZolam 0.25 MG TAB PO SCH (21:16)
[2019-05-14] MEDS: PRAVASTATIN SODIUM 20 MG TAB PO SCH (21:17)
[2019-05-14] MEDS: levETIRAcetam 250 MG TAB PO SCH (21:17)
[2019-05-14] MEDS: MELATONIN 3 MG TABLET PO SCH (21:17)
--- NOTE | 2019-05-14 22:03 | PN ---
PROGRESS NOTE DATE OF SERVICE: 05/14/2019 this 83-year-old gentleman who was admitted with multiple medical problems including CHF acute exacerbation, also had persistently low blood pressure at this time. Klebsiella oxytoca from the sputum was cultured. Most recent chest x-ray done on 05/12/2019, which was reviewed personally by me showed evidence of lower lobe infiltrates as well as maybe pleural effusion on the left side with blunting of the costophrenic angle. Patient is being closely monitored. Patient is off Levophed at this time. The hemodialysis also being carried out on a shorter duration because of the blood pressure concerns. PAST MEDICAL HISTORY: Reviewed. REVIEW OF SYSTEMS: Could not be taken, the patient is mildly confused. CURRENT MEDICATIONS ARE: 1. [place] elixir. 2. DuoNeb q.i.d. and p.r.n. 3. Xanax 0.5 q.h.s. 4. Pulmicort 1 mg b.i.d. 5. Iron sulfate 325 mg daily. 6. Diflucan 100 mg. 7. Florinef. 8. Folic acid. 9. Perforomist. 10.Neurontin. 11.Mucinex. 12.Heparin. 13.Cephulac. 14.Keppra. 15.Magnesium oxide. 16.Melatonin. 17.P.r.n. medications. PHYSICAL EXAMINATION: Patient is drowsy but arousable, confused. Pulse 71, blood pressure 97/56, respiration 18, temperature normal, pulse ox 96% on 2 L. HEENT: Conjunctivae normal. Oral mucosa moist. NECK: No jugular venous distention. No lymph node enlargement. CARDIOVASCULAR: S1, S2. RESPIRATORY: Diminished breath sounds at the bases. Scattered rhonchi and crackles. ABDOMEN: Soft, nontender. LEGS: No edema, no swelling. NERVOUS SYSTEM: Higher functions mentioned earlier. Moves all four limbs. No focal deficits. LYMPHATICS: No lymph node in neck or axilla. SKIN: No rash. JOINTS: No active deforming arthropathy. LABS: WBC 7, hemoglobin is 10.2, platelets 108 and creatinine is 4.73. ASSESSMENT: 1. Congestive heart failure acute exacerbation with acute on chronic systolic dysfunction, ejection fraction 45-50% with acute hypoxic hypercarbic respiratory failure status post BiPAP, present on admission. 2. Klebsiella oxytoca and Sarah albicans from the sputum. 3. Hypotension, possibly cardiogenic shock, multifactorial with possible sepsis present on admission. 4. Change in mental status, metabolic encephalopathy, multifactorial, acute. 5. Bronchopneumonia, possibly gram-negative. 6. Bilateral atelectasis with possible bronchopneumonia. 7. Hyponatremia. 8. Troponin 0.05, indeterminate with possible type 2 myocardial infarction with supply/demand mismatch. 9. BNP elevated up to 116,000. 10.Hypoalbuminemia with mild to moderate protein calorie malnutrition. 11.Anemia, microcytic anemia of chronic disease. 12.Thrombocytopenia. 13.History atrial fibrillation, paroxysmal. 14.History of chronic obstructive pulmonary disease. 15.Hyperlipidemia. 16.Hypertension. 17.History of chronic lung disease stage IV on hemodialysis Wednesday, Wednesday, Wednesday. 18.History of glaucoma. 19.History of macular degeneration. 20.History of degenerative joint disease. 21.History of remote nicotine dependence. 22.Gait dysfunction. 23.FULL CODE. RECOMMENDATIONS AND DISCUSSION: I recommend to continue current medications, continue to monitor, continue symptomatic treatment, continue to monitor fluids, monitor blood pressure closely. Otherwise, hemodialysis. I would also recommend to continue with broad-spectrum antibiotics at this time. Otherwise, monitor blood pressure closely. The prognosis is extremely guarded because of multiple complex medical issues. Further recommendations to follow. The patient is on empiric IV steroids also by Dr. Horton. Further recommendations to follow. MMODL / IJN: [id number] /
[2019-05-15] MEDS: methylPREDNISolone SOD SUCCI 125 MG/2 ML VIAL IV SCH ×2 (00:22→05:32)
[2019-05-15 05:32] LABS: Basophils % (A) 0 %; Eosinophils # (A) 0.1 k/uL (0-0.7); Eosinophils % (A) 1 %; HCT 35.3 % (39.0-53.0); Hypochromasia Slight; Lymphocytes # (A) 0.2 k/uL (1.0-4.8); Lymphocytes % (A) 3 %; MCH 34.3 pg (25.0-35.0); MCHC 31.3 g/dL (31.0-37.0); MCV 109.7 fL (80.0-100.0); Mean Platelet Volume 9.6; Monocytes # (A) 0.2 k/uL (0-1.0); Monocytes % (A) 2 %; Neutrophils # (A) 8.5 k/uL (1.3-7.7); Neutrophils % (A) 95 %; Platelet Count 109 k/uL (150-450); RBC 3.22 m/uL (4.30-5.90); RDW 14.2 % (11.5-15.5)
[2019-05-15 05:35] LABS: Macrocytosis Marked
[2019-05-15 05:46] LABS: Calcium 8.8 mg/dL (8.4-10.2); Potassium 5.3 mmol/L (3.5-5.1)
[2019-05-15] MEDS: MIDODRINE 5 MG TAB PO SCH ×3 (06:41→17:32)
[2019-05-15] MEDS: levOCARNitine 330 MG TABLET PO SCH ×3 (06:41→17:33)
[2019-05-15] MEDS: IPRATROPIUM-ALBUTEROL 3 ML NEB INHALATION SCH ×4 (08:26→19:35)
[2019-05-15] MEDS: FORMOTEROL FUMARATE 20 MCG/2 ML NEBU INHALATION SCH ×2 (08:26→19:35)
[2019-05-15] MEDS: BUDESONIDE 1 MG/2 ML NEBU INHALATION SCH ×2 (08:26→19:35)
--- NOTE | 2019-05-15 09:18 | P.PN ---
Subjective Patient is seen in follow-up for end-stage renal disease. Currently receiving breathing treatment. Off vasopressors. Maintained on midodrine. Also maintained on IV Solu-Medrol and oral Florinef. Vital signs are stable. General: The patient appeared well nourished and normally developed. HEENT: Head exam is unremarkable. Neck is without jugular venous distension. LUNGS: Breath sounds decreased. HEART: Rate and Rhythm are regular. First and second heart sounds normal. No murmurs, rubs or gallops. ABDOMEN: Abdominal exam reveals normal bowel sounds. Non-tender and non- distended. No evidence of peritonitis. EXTREMITITES: Trace edema. Objective - Vital Signs Vital signs: Vital Signs Temp 98.3 F 05/15/19 05:35 Pulse 70 05/15/19 08:50 Resp 14 05/15/19 05:35 BP 85/53 05/15/19 05:35 Pulse Ox 94 L 05/15/19 05:35 Intake & Output 05/14/19 05/15/19 05/15/19 18:59 06:59 18:59 Intake Total 160 100 Output Total 0 0 Balance 160 100 Intake: IV 160 100 Normal Saline 60 Piperacillin-Tazobactam 3 100 100 .375 gm In Sodium Chloride 0.9% 100 ml @ 25 mls/hr IVPB Q12HR [facility] Rx #:[id number] Output: Urine 0 0 Other: Voiding Method Urinal Urinal - Labs CBC & Chem 7: 05/15/19 05:20 05/15/19 05:20 Labs: Abnormal Lab Results - Last 24 Hours (Table) 05/15/19 05/15/19 Range/Units 05:20 05:20 RBC 3.22 L (4.30-5.90) m/uL Hgb 11.0 L (13.0-17.5) gm/dL Hct 35.3 L (39.0-53.0) % MCV 109.7 H (80.0-100.0) fL Plt Count 109 L (150-450) k/uL Neutrophils # 8.5 H (1.3-7.7) k/uL Lymphocytes # 0.2 L (1.0-4.8) k/uL Macrocytosis Marked A Potassium 5.3 H (3.5-5.1) mmol/L BUN 72 H (9-20) mg/dL Creatinine 5.50 H (0.66-1.25) mg/dL Glucose 179 H (74-99) mg/dL Microbiology - Last 24 Hours (Table) 05/08/19 17:29 Blood Culture - Final Blood No Growth after 144 hours Assessment and Plan Plan: Assessment: 1. End-stage renal disease maintained on hemodialysis 4 times per week outpatient. 2. Chronic hypotension maintained on midodrine. Also on IV steroids, Florinef. 3. Anemia of chronic kidney disease. Hemoglobin at goal. 4. Acute on chronic diastolic CHF with mild to moderate mitral and tricuspid regurgitation. 5. Productive cough. He is on IV antibiotics. Sputum culture positive for Klebsiella and Sarah. Plan: Hemodialysis today.
[2019-05-15] MEDS: PIPERACILLIN-TAZOBACTAM 3.375 GM in SODIUM CHLORIDE 0.9% 100 ML IVPB SCH ×2 (09:23→20:28)
[2019-05-15] MEDS: GABAPENTIN 100 MG CAP PO SCH ×3 (09:24→20:29)
[2019-05-15] MEDS: FERROUS SULFATE 325 MG TAB PO SCH (09:24)
[2019-05-15] MEDS: HEPARIN SODIUM,PORCINE 5,000 UNIT/ML 1 ML VIAL SQ SCH ×2 (09:24→20:30)
[2019-05-15] MEDS: THIAMINE 100 MG TAB PO SCH (09:24)
[2019-05-15] MEDS: PANTOPRAZOLE 40 MG TABLET PO SCH (09:24)
[2019-05-15] MEDS: MAGNESIUM OXIDE 400 MG TAB PO SCH (09:24)
[2019-05-15] MEDS: TORSEMIDE 20 MG TAB PO SCH ×2 (09:25→21:39)
[2019-05-15] MEDS: VIT A,C & E-LUTEIN-MINERALS 1 EACH TAB PO SCH (09:25)
[2019-05-15] MEDS: rOPINIRole HCL 4 MG TABLET PO SCH ×3 (09:25→20:31)
[2019-05-15] MEDS: FOLIC ACID 1 MG TAB PO SCH (09:25)
[2019-05-15] MEDS: FLUDROCORTISONE 0.1 MG TAB PO SCH ×2 (09:26→20:30)
[2019-05-15] MEDS: FOLIC ACID-VIT B COMPLEX-VIT C 1 CAP PO SCH (09:26)
[2019-05-15] MEDS: FLUCONAZOLE 100 MG TAB PO SCH (09:26)
[2019-05-15] MEDS: TIMOLOL 0.5% OPHTH DROPS 5 ML BTL BOTH EYES SCH ×2 (09:28→20:32)
[2019-05-15 09:52] VITALS: BMI 30.2
[2019-05-15] MEDS ORDERED: guaiFENesin 600 MG TABLET.ER PO PRN (10:22)
--- NOTE | 2019-05-15 10:22 | P.PN ---
Subjective Progress Note Date: 05/15/19 on 05/15/2019 the patient is being seen for a follow-up. He is on 2 L of oxygen by nasal cannula. His most recent chest x-ray was done on 05/12/2019 and it showed CHF with interstitial edema and some atelectatic changes/consolidation of the left lung base. The sputum was positive for Klebsiella and the patient is currently on IV Zosyn. He is currently on 2 L. He is afebrile. He is undergoing dialysis 3 times a week and his last dialysis session was on 05/13/2019. He is on no pressors for now. He is on Florinef for blood pressure control specially during dialysis when he drops his blood pressure. He is afebrile. He has a congested cough and is using a suctioning device to suction his respiratory secretions. His white cell count is not elevated and he is quite weak without any significant edema in lower extremities bilaterally. He remains on DuoNeb inhalations, Pulmicort and Perforomist inhalations, IV Solu- Medrol. Antibiotics in form of Zosyn. Diuretics with Demadex 80 mg twice a day.He is also on midodrine 10 mg before meals 3 times a day. Sputum cultures positive for Klebsiella oxytoca and Sarah. Blood cultures reveal no growth Objective - Vital Signs Vital signs: Vital Signs Temp 98.3 F 05/15/19 05:35 Pulse 70 05/15/19 08:50 Resp 14 05/15/19 05:35 BP 85/53 05/15/19 05:35 Pulse Ox 94 L 05/15/19 05:35 Intake & Output 05/14/19 05/15/19 05/15/19 18:59 06:59 18:59 Intake Total 160 100 Output Total 0 0 Balance 160 100 Weight 87.589 kg Intake: IV 160 100 Normal Saline 60 Piperacillin-Tazobactam 3 100 100 .375 gm In Sodium Chloride 0.9% 100 ml @ 25 mls/hr IVPB Q12HR [facility] Rx #:[id number] Output: Urine 0 0 Other: Voiding Method Urinal Urinal Urinal - Exam GENERAL EXAM: Alert, very pleasant, 83-year-old male patient, on 2 L of oxygen with pulse ox of 96% comfortable in no apparent distress.patient is having frequent coughing spells trying to self suction himself and remove the rest or secretions. HEAD: Normocephalic/atraumatic. EYES: Normal reaction of pupils, equal size. Conjunctiva pink, sclera white. NOSE: Clear with pink turbinates. THROAT: No erythema or exudates. NECK: No masses, no JVD, no thyroid enlargement, no adenopathy. CHEST: No chest wall deformity. Symmetrical expansion. LUNGS: Equal air entry with diminished breath sounds at the bases, diffuse rhonchi heard throughout the lung [place] bilaterally and diminished breath on the right lung base and the left lung base CVS: Regular rate and rhythm, normal S1 and S2, no gallops, no murmurs, no rubs ABDOMEN: Soft, nontender. No hepatosplenomegaly, normal bowel sounds, no guarding or rigidity. EXTREMITIES: No clubbing, no cyanosis, 2+ pulses and upper and lower extr emities. Right arm fistula with positive bruit and thrill. MUSCULOSKELETAL: Muscle strength and tone normal. SPINE: No scoliosis or deformity SKIN: No rashes CENTRAL NERVOUS SYSTEM: No focal deficits, tone is normal in all 4 extremities. PSYCHIATRIC: Alert and oriented -3. Appropriate affect. Intact judgment and insight. - Labs CBC & Chem 7: 05/15/19 05:20 05/15/19 05:20 Labs: Abnormal Lab Results - Last 24 Hours (Table) 05/15/19 05/15/19 Range/Units 05:20 05:20 RBC 3.22 L (4.30-5.90) m/uL Hgb 11.0 L (13.0-17.5) gm/dL Hct 35.3 L (39.0-53.0) % MCV 109.7 H (80.0-100.0) fL Plt Count 109 L (150-450) k/uL Neutrophils # 8.5 H (1.3-7.7) k/uL Lymphocytes # 0.2 L (1.0-4.8) k/uL Macrocytosis Marked A Potassium 5.3 H (3.5-5.1) mmol/L BUN 72 H (9-20) mg/dL Creatinine 5.50 H (0.66-1.25) mg/dL Glucose 179 H (74-99) mg/dL Microbiology - Last 24 Hours (Table) 05/08/19 17:29 Blood Culture - Final Blood No Growth after 144 hours Assessment and Plan Plan: #1. Acute metabolic encephalopathy, improvingmonitor his mental status is normalized and back to baseline #2. Hypotension, possibly related to sepsis or infectious process, and acute CHF systolic dysfunction, currently on midodrine and the patient is not requiring any pressors #3. Klebsiella oxytoca pneumonia, currently on Zosynrepeat chest x-ray for tomorrow #4. Fluid overload, acute on chronic exacerbation of congestive heart failure, with systolic dysfunction, with the EF of 45-50%Liu and the patient does not have any significant edema in his upper and lower extremities #5. Recent admission for acute multilobar pneumonia secondary to E. coli #6. Acute hypoxic respiratory failure, multifactorial, related to acute CHF exacerbation and possibility of pneumonia is not excluded #7. End-stage renal disease, on hemodialysis #8. Strep underlying COPD #9. Chronic atrial fibrillation #10. Dyslipidemia #11. History of macular degeneration #12. History of glaucoma ERIC 1 dialysis today 2 IV Zosyn 3 by mouth Diflucan 4 Discontinued IV Solu-Medrol and put the patient on prednisone burst taper starting with 30 mg 5 pulmonary toileting, incentive spirometer, flutter valve 6 passed swallow evaluation 7 consider bronchoscopy specially if he continues to have significant orotr acheal secretions affecting his overall pulmonary status.
--- NOTE | 2019-05-15 15:26 | PN ---
PROGRESS NOTE DATE OF SERVICE: 05/15/2019 This is an 83-year-old gentleman who was admitted with CHF acute exacerbation with acute on chronic systolic dysfunction, ejection fraction 45% to 50%, also had Klebsiella oxytoca and Sarah from the sputum also. Patient continues to be chronically hypotensive. Patient is being empirically treated for hypo cortisol. No chest pain. No palpitations. No fever. Hemodialysis continued cautiously. PAST MEDICAL HISTORY: Reviewed. REVIEW OF SYSTEMS: CARDIOVASCULAR SYSTEM: No angina. RESPIRATION: Cough. GI: As mentioned earlier. : As mentioned earlier. NERVOUS SYSTEM: No focal deficits. CURRENT MEDICATIONS: Reviewed and include: 1. Hydrocodone 2.5 q.6 p.r.n. 2. DuoNeb q.i.d. and p.r.n. 3. Xanax 0.5 q.h.s. 4. Pulmicort 1 mg b.i.d. 6. Diflucan 100 mg p.o. daily. 7. Florinef 0.2 b.i.d. 8. Folic acid. 9. Perforomist. 10.Neurontin. 11.Mucinex. 12.Cephulac. 13.Keppra. 14.Magnesium oxide. 15.Melatonin. 16.ProAmatine. 17.Narcan. 18.Protonix. 19.Zosyn. 20.Prednisone. 21.Requip. 22.Timoptic. 23.Demadex. 24.Vitamin B1. PHYSICAL EXAM: Patient is alert and oriented x3. Pulse is 79, blood pressure is 85/53, respiration 14, temperature 98.2, pulse ox 94% on 2 L. HEENT: Conjunctivae normal. NECK: No jugular venous distension. CARDIOVASCULAR: S1, S2, muffled. RESPIRATION: Breath sounds diminished at the bases, bilateral scattered rhonchi, no crackles. ABDOMEN: Soft, nontender. LEGS: No edema. No swelling. CENTRAL NERVOUS SYSTEM: Diffusely weak. LABS: WBC 9, hemoglobin is 11, sodium is 140, potassium 5.2, creatinine is 1.5. ASSESSMENT: 1. Congestive heart failure acute exacerbation with acute on chronic systolic, dysfunction ejection fraction 40% to 50% with acute hypoxic hypercarbic respiratory failure, status post BiPAP, present on admission. 2. Klebsiella oxytoca Sarah albicans from the sputum. 3. Hypotension, possibly cardiogenic shock, also multifactorial with possible sepsis present on admission. 4. Change in mental status, metabolic encephalopathy, multifactorial, acute. 5. Bronchopneumonia, possibly gram-negative. 6. Bilateral atelectasis with possible bronchopneumonia. 7. Hyponatremia. 8. Troponin 0.005 indeterminate with possible type 2 myocardial infarction with supply/demand mismatch. 9. BNP elevated up to 116,000. 10.Hypoalbuminemia with mild to moderate protein calorie malnutrition. 11.Anemia, microcytic anemia of chronic disease. 12.Thrombocytopenia, history of atrial fibrillation, paroxysmal. 13.History of chronic obstructive pulmonary disease. 14.Hyperlipidemia. 15.Hypertension. 16.History of chronic kidney disease stage IV, on hemodialysis a Wednesday, Wednesday, Wednesday. 17.History of glaucoma. 18.History of macular degeneration. 19.History of degenerative joint disease. 20.Remote history of nicotine dependence. 21.Gait dysfunction. 22.FULL CODE. RECOMMENDATION: I recommend to continue current management and symptomatic treatment. Continue with the hemodialysis as mentioned. Will continue with the antibiotics continue the bronchodilators. Evaluation possible ECF rehab. Continue the rest of medications including pain medications. Guarded prognosis because of multiple complex medical issues. Further recommendations to follow. MMODL / IJN: [id number] / JASON
[2019-05-15] MEDS: SODIUM CHLORIDE 0.9% 1,000 ML IV SCH (17:29)
[2019-05-15 18:16] LABS: Hepatitis B Surface AB- Quant 3.5 mIU/mL; Hepatitis B Surface Antibody Non-Reactive (Non-Reactive); Hepatitis B Surface Antigen Non-Reactive (Non-Reactive)
[2019-05-15] MEDS: ALPRAZolam 0.25 MG TAB PO SCH (20:29)
[2019-05-15] MEDS: levETIRAcetam 250 MG TAB PO SCH (20:30)
[2019-05-15] MEDS: PRAVASTATIN SODIUM 20 MG TAB PO SCH (20:31)
[2019-05-15] MEDS: MELATONIN 3 MG TABLET PO SCH (20:31)
[2019-05-16 06:50] LABS: Glucose,Whole Blood 152 mg/dL (75-99)
--- NOTE | 2019-05-16 08:45 | XR ---
EXAMINATION TYPE: XR chest 1V portable DATE OF EXAM: 05/16/2019 COMPARISON: 05/12/2019 HISTORY: Fluid overload and shortness of breath TECHNIQUE: Single frontal view of the chest is obtained. FINDINGS: Cardiomediastinal silhouette is enlarged. Small left pleural effusion is unchanged with le ft basilar airspace disease. Strand-like right basilar probable atelectasis remains. Very minimal int erstitial edema. Diffuse osseous demineralization. IMPRESSION: Stable exam with minimal interstitial edema, small left pleural effusion and bibasilar a irspace disease.
[2019-05-16] MEDS: FORMOTEROL FUMARATE 20 MCG/2 ML NEBU INHALATION SCH ×2 (08:48→20:11)
[2019-05-16] MEDS: IPRATROPIUM-ALBUTEROL 3 ML NEB INHALATION SCH ×4 (08:48→20:11)
[2019-05-16] MEDS: BUDESONIDE 1 MG/2 ML NEBU INHALATION SCH ×2 (08:48→20:11)
[2019-05-16] MEDS: GABAPENTIN 100 MG CAP PO SCH ×3 (09:17→20:36)
[2019-05-16] MEDS: MAGNESIUM OXIDE 400 MG TAB PO SCH (09:17)
[2019-05-16] MEDS: FERROUS SULFATE 325 MG TAB PO SCH (09:17)
[2019-05-16] MEDS: MIDODRINE 5 MG TAB PO SCH ×3 (09:17→17:23)
[2019-05-16] MEDS: FLUCONAZOLE 100 MG TAB PO SCH ×2 (09:17→20:35)
[2019-05-16] MEDS: PANTOPRAZOLE 40 MG TABLET PO SCH (09:17)
[2019-05-16] MEDS: FLUDROCORTISONE 0.1 MG TAB PO SCH ×2 (09:17→20:51)
[2019-05-16] MEDS: HEPARIN SODIUM,PORCINE 5,000 UNIT/ML 1 ML VIAL SQ SCH ×2 (09:17→20:51)
[2019-05-16] MEDS: TIMOLOL 0.5% OPHTH DROPS 5 ML BTL BOTH EYES SCH ×2 (09:18→20:53)
[2019-05-16] MEDS: PIPERACILLIN-TAZOBACTAM 3.375 GM in SODIUM CHLORIDE 0.9% 100 ML IVPB SCH ×2 (09:18→20:52)
[2019-05-16] MEDS: VIT A,C & E-LUTEIN-MINERALS 1 EACH TAB PO SCH (09:18)
[2019-05-16] MEDS: FOLIC ACID 1 MG TAB PO SCH (09:18)
[2019-05-16] MEDS: TORSEMIDE 20 MG TAB PO SCH ×4 (09:18→20:37)
[2019-05-16] MEDS: predniSONE 10 MG TAB PO SCH (09:18)
[2019-05-16] MEDS: rOPINIRole HCL 4 MG TABLET PO SCH ×3 (09:18→20:36)
[2019-05-16] MEDS: FOLIC ACID-VIT B COMPLEX-VIT C 1 CAP PO SCH (09:19)
[2019-05-16] MEDS: levOCARNitine 330 MG TABLET PO SCH ×3 (09:19→17:23)
--- NOTE | 2019-05-16 09:49 | P.PN ---
Subjective Patient is seen in follow-up for end-stage renal disease. Transferred out of the intensive care unit. Currently resting in bed. Off vasopressors. Maintained on midodrine and Florinef. Vital signs are stable. General: The patient appeared well nourished and normally developed. HEENT: Head exam is unremarkable. Neck is without jugular venous distension. LUNGS: Breath sounds decreased. HEART: Rate and Rhythm are regular. First and second heart sounds normal. No murmurs, rubs or gallops. ABDOMEN: Abdominal exam reveals normal bowel sounds. Non-tender and non- distended. No evidence of peritonitis. EXTREMITITES: Trace edema. Objective - Vital Signs Vital signs: Vital Signs Temp 97.6 F 05/16/19 07:00 Pulse 75 05/16/19 09:07 Resp 16 05/16/19 07:00 BP 83/47 05/16/19 07:00 Pulse Ox 98 05/16/19 07:00 Intake & Output 05/15/19 05/16/19 05/16/19 18:59 06:59 18:59 Intake Total 520 200 Output Total 800 0 Balance -280 200 Weight 87.589 kg Intake: IV 120 100 Normal Saline 20 Piperacillin-Tazobactam 3 100 100 .375 gm In Sodium Chloride 0.9% 100 ml @ 25 mls/hr IVPB Q12HR [facility] Rx #:[id number] Oral 100 100 Hemodialysis 300 Output: Urine 0 Hemodialysis 800 Other: Voiding Method Urinal Urinal - Labs CBC & Chem 7: 05/15/19 05:20 05/15/19 05:20 Labs: Abnormal Lab Results - Last 24 Hours (Table) 05/16/19 Range/Units 06:48 POC Glucose (mg/dL) 152 H (75-99) mg/dL Assessment and Plan Plan: Assessment: 1. End-stage renal disease maintained on hemodialysis 4 times per week outpatient. 2. Chronic hypotension maintained on midodrine and Florinef. 3. Anemia of chronic kidney disease. Hemoglobin at goal. 4. Acute on chronic diastolic CHF with mild to moderate mitral and tricuspid regurgitation. 5. Productive cough. He is on IV antibiotics. Sputum culture positive for Klebsiella and Sarah. Plan: Hemodialysis tomorrow.
--- NOTE | 2019-05-16 10:46 | P.PN ---
Subjective Progress Note Date: 05/16/19 on 05/15/2019 the patient is being seen for a follow-up. He is on 2 L of oxygen by nasal cannula. His most recent chest x-ray was done on 05/12/2019 and it showed CHF with interstitial edema and some atelectatic changes/consolidation of the left lung base. The sputum was positive for Klebsiella and the patient is currently on IV Zosyn. He is currently on 2 L. He is afebrile. He is undergoing dialysis 3 times a week and his last dialysis session was on 05/13/2019. He is on no pressors for now. He is on Florinef for blood pressure control specially during dialysis when he drops his blood pressure. He is afebrile. He has a congested cough and is using a suctioning device to suction his respiratory secretions. His white cell count is not elevated and he is quite weak without any significant edema in lower extremities bilaterally. He remains on DuoNeb inhalations, Pulmicort and Perforomist inhalations, IV Solu- Medrol. Antibiotics in form of Zosyn. Diuretics with Demadex 80 mg twice a day.He is also on midodrine 10 mg before meals 3 times a day. Sputum cultures positive for Klebsiella oxytoca and Sarah. Blood cultures reveal no growth On 05/16/2019, the patient is still on oxygen at 2 L. He is on and off suctioning himself as the patient continues to have a congested cough. Chest x- ray still showing bilateral basal infiltrates slightly worse on the left. He has cultured Klebsiella in his sputum and the patient remains on the same antibiotic coverage which included IV Zosyn. He underwent dialysis yesterday. He is on a combination of DuoNeb neb last treatment [id number] in addition to Pulmicort and Perforomist overestimates twice a day. He is ultimately going to rehab. He is undergoing daily physical therapy. He is able to bear weight on his legs and move around with the help of a walker. His blood pressure is stable and there is no hypotension at this point and time nontender the patient typically runs a lower blood pressure. No nausea. No vomiting. No diarrhea. No chest pain. Objective - Vital Signs Vital signs: Vital Signs Temp 97.6 F 05/16/19 07:00 Pulse 75 05/16/19 09:07 Resp 16 05/16/19 07:00 BP 83/47 05/16/19 07:00 Pulse Ox 98 05/16/19 07:00 Intake & Output 05/15/19 05/16/19 05/16/19 18:59 06:59 18:59 Intake Total 520 200 Output Total 800 0 Balance -280 200 Weight 87.589 kg Intake: IV 120 100 Normal Saline 20 Piperacillin-Tazobactam 3 100 100 .375 gm In Sodium Chloride 0.9% 100 ml @ 25 mls/hr IVPB Q12HR [facility] Rx #:[id number] Oral 100 100 Hemodialysis 300 Output: Urine 0 Hemodialysis 800 Other: Voiding Method Urinal Urinal - Exam GENERAL EXAM: Alert, very pleasant, 83-year-old male patient, on 2 L of oxygen with pulse ox of 96% comfortable in no apparent distress.patient is having frequent coughing spells trying to self suction himself and remove the rest or secretions. HEAD: Normocephalic/atraumatic. EYES: Normal reaction of pupils, equal size. Conjunctiva pink, sclera white. NOSE: Clear with pink turbinates. THROAT: No erythema or exudates. NECK: No masses, no JVD, no thyroid enlargement, no adenopathy. CHEST: No chest wall deformity. Symmetrical expansion. LUNGS: Equal air entry with diminished breath sounds at the bases, diffuse rhonchi heard throughout the lung brewster bilaterally and diminished breath on the right lung base and the left lung base CVS: Regular rate and rhythm, normal S1 and S2, no gallops, no murmurs, no rubs ABDOMEN: Soft, nontender. No hepatosplenomegaly, normal bowel sounds, no guarding or rigidity. EXTREMITIES: No clubbing, no cyanosis, 2+ pulses and upper and lower extremities. Right arm fistula with positive bruit and thrill. MUSCULOSKELETAL: Muscle strength and tone normal. SPINE: No scoliosis or deformity SKIN: No rashes CENTRAL NERVOUS SYSTEM: No focal deficits, tone is normal in all 4 extremities. PSYCHIATRIC: Alert and oriented -3. Appropriate affect. Intact judgment and insight. - Labs CBC & Chem 7: 05/15/19 05:20 05/15/19 05:20 Labs: Abnormal Lab Results - Last 24 Hours (Table) 05/16/19 Range/Units 06:48 POC Glucose (mg/dL) 152 H (75-99) mg/dL Assessment and Plan Plan: #1. Acute metabolic encephalopathy, recovered and the mental status normalized #2. Hypotension, possibly related to sepsis or infectious process, and acute CHF systolic dysfunction, currently on midodrine and the patient is not requiring any pressors #3. Klebsiella oxytoca pneumonia, currently on Zosyn ,repeat chest x-ray shows stable bilateral lower lobe pulmonary infiltrates while on antibiotic. He continues to have congested cough. His ability to perform pulmonary toileting is limited. 4 acute on chronic exacerbation of congestive heart failure, with systolic dysfunction, with the EF of 45-50%Liu and the patient does not have any significant edema in his upper and lower extremities #5. Recent admission for acute multilobar pneumonia secondary to E. coli #6. Acute hypoxic respiratory failure, multifactorial, related to acute CHF exacerbation and possibility of pneumonia is not excluded #7. End-stage renal disease, on hemodialysis #8. Strep underlying COPD #9. Chronic atrial fibrillation #10. Dyslipidemia #11. History of macular degeneration #12. History of glaucoma #13 chronic hypotension ERIC 1 dialysis tomorrow 2 IV Zosyn 3 Po Diflucan 4 prednisone burst taper starting with 30 mg 5 pulmonary toileting, incentive spirometer, flutter valve 6 passed swallow evaluation 7 consider bronchoscopy specially if he continues to have significant orotracheal secretions affecting his overall pulmonary status.
[2019-05-16 12:02] LABS: Glucose,Whole Blood 109 mg/dL (75-99)
[2019-05-16] MEDS: THIAMINE 100 MG TAB PO SCH (13:47)
[2019-05-16] MEDS: SODIUM CHLORIDE 0.9% 1,000 ML IV SCH (16:00)
--- NOTE | 2019-05-16 16:02 | PN ---
PROGRESS NOTE DATE OF SERVICE: 05/16/2019 This 83-year-old gentleman who was admitted with CHF, acute exacerbation, with acute on chronic systolic dysfunction, ejection fraction 40% to 50%, with acute hypoxic hypercarbic respiratory failure, had BiPAP. The patient had relative hypotension. The patient also is receiving hemodialysis at this time. The patient is confused as well, on and off. His most recent chest x-ray, personally reviewed by me, showed some infiltrate bilaterally, suggesting interstitial edema. Patient is being closely monitored at this time. Dr. Gloria as well as Dr. Thompson from Nephrology are following the patient closely. Past medical history reviewed. REVIEW OF SYSTEMS: CARDIOVASCULAR SYSTEM: As mentioned earlier. RESPIRATORY SYSTEM: As mentioned earlier. GI: No nausea, vomiting. : No dysuria or retention. NERVOUS SYSTEM: No numbness, weakness. ALLERGY/IMMUNOLOGY: No asthma or hayfever. MUSCULOSKELETAL: As mentioned earlier. HEMATOLOGY/ONCOLOGY: No history of anemia. ENDOCRINE: As mentioned earlier. PHYSICAL EXAMINATION: Patient is alert, oriented x1. Pulse 67, blood pressure 83/47, respiration 16, temperature 97.6, pulse ox 98% on 3 L. HEENT: Conjunctivae normal. NECK: No jugular venous distention. CARDIOVASCULAR SYSTEM: S1, S2 muffled. RESPIRATORY SYSTEM: Breath sounds diminished at the bases. Scattered rhonchi and crackles. ABDOMEN: Soft, obese, distended. LEGS: Bilateral leg edema. NERVOUS SYSTEM: Diffusely weak. LABS: WBC 9, hemoglobin 11. Sodium 141, potassium 5.3. ASSESSMENT: 1. Congestive heart failure, acute exacerbation, with acute on chronic systolic dysfunction, ejection fraction 40% to 50%, with acute hypoxic hypercarbic respiratory failure, status post BiPAP, present on admission. 2. Klebsiella oxytoca pneumonia and Sarah albicans from the sputum. 3. Hypotension, possibly cardiogenic shock, multifactorial, with possible sepsis, present on admission, persistent. 4. Change in mental status, metabolic encephalopathy, multifactorial, acute. 5. Bronchopneumonia, possibly Gram-negative. 6. Bilateral atelectasis with possible bronchopneumonia. 7. Hyponatremia. 8. Troponin 0.05, indeterminate, with a possible type 2 myocardial infarction with supply/demand mismatch. 9. BNP elevated up to 116,000. 10.Hypoalbuminemia with mild to moderate protein-calorie malnutrition. 11.Anemia, microcytic; anemia of chronic disease. 12.Thrombocytopenia. 13.History of atrial fibrillation, paroxysmal. 14.History of chronic obstructive pulmonary disease. 15.Hyperlipidemia. 16.Hypertension. 17.History of chronic kidney disease, stage IV, on hemodialysis Wednesday, Wednesday, Wednesday. 18.History of glaucoma. 19.History of macular degeneration. 20.History of degenerative joint disease. 21.Remote history of nicotine dependence. 22.Gait dysfunction. 23.FULL CODE. RECOMMENDATIONS AND DISCUSSION: In this 83-year-old gentleman who presented with multiple complex medical issues, we will monitor the patient closely, continue the current medications, continue with symptomatic treatment. The prognosis is extremely guarded. Will continue to monitor. The patient is on midodrine as well as prednisone. Will continue to monitor. IV Zosyn to be continued. Otherwise, the prognosis is extremely guarded because of multiple complex medical issues. The patient is currently FULL CODE. We will talk with the patient and family again about the code status as well as possible palliative care. Closely follow with Pulmonary for now. Possible ECF rehab. Further recommendations to follow. QUEENIE / ISABELLAN: [id number] / JASON
[2019-05-16 16:31] LABS: Glucose,Whole Blood 97 mg/dL (75-99)
[2019-05-16] MEDS: HYDROCORTISONE 20 MG TAB PO SCH ×2 (17:22→23:02)
[2019-05-16] MEDS: ALPRAZolam 0.25 MG TAB PO SCH (20:31)
[2019-05-16] MEDS: levETIRAcetam 250 MG TAB PO SCH (20:51)
[2019-05-16] MEDS: PRAVASTATIN SODIUM 20 MG TAB PO SCH (20:53)
[2019-05-16 21:25] LABS: Glucose,Whole Blood 154 mg/dL (75-99)
[2019-05-16] MEDS: MELATONIN 3 MG TABLET PO SCH (23:04)
[2019-05-17 06:46] LABS: Glucose,Whole Blood 119 mg/dL (75-99)
[2019-05-17] MEDS: BUDESONIDE 1 MG/2 ML NEBU INHALATION SCH ×2 (08:12→19:12)
[2019-05-17] MEDS: FORMOTEROL FUMARATE 20 MCG/2 ML NEBU INHALATION SCH ×2 (08:12→19:12)
[2019-05-17] MEDS: IPRATROPIUM-ALBUTEROL 3 ML NEB INHALATION SCH ×4 (08:12→19:12)
[2019-05-17] MEDS: MAGNESIUM OXIDE 400 MG TAB PO SCH (08:25)
[2019-05-17] MEDS: MIDODRINE 5 MG TAB PO SCH ×3 (08:25→15:07)
[2019-05-17] MEDS: PANTOPRAZOLE 40 MG TABLET PO SCH (08:25)
[2019-05-17] MEDS: FLUDROCORTISONE 0.1 MG TAB PO SCH ×2 (08:25→21:23)
[2019-05-17] MEDS: FERROUS SULFATE 325 MG TAB PO SCH (08:25)
[2019-05-17] MEDS: predniSONE 10 MG TAB PO SCH (08:25)
[2019-05-17] MEDS: GABAPENTIN 100 MG CAP PO SCH ×3 (08:25→21:24)
[2019-05-17] MEDS: FOLIC ACID-VIT B COMPLEX-VIT C 1 CAP PO SCH (08:25)
[2019-05-17] MEDS: PIPERACILLIN-TAZOBACTAM 3.375 GM in SODIUM CHLORIDE 0.9% 100 ML IVPB SCH ×2 (08:25→21:24)
[2019-05-17] MEDS: VIT A,C & E-LUTEIN-MINERALS 1 EACH TAB PO SCH (08:26)
[2019-05-17] MEDS: rOPINIRole HCL 4 MG TABLET PO SCH ×3 (08:26→21:24)
[2019-05-17] MEDS: HYDROCORTISONE 20 MG TAB PO SCH ×2 (08:26→21:23)
[2019-05-17] MEDS: TIMOLOL 0.5% OPHTH DROPS 5 ML BTL BOTH EYES SCH ×2 (08:26→21:24)
[2019-05-17] MEDS: levOCARNitine 330 MG TABLET PO SCH ×3 (08:27→17:40)
[2019-05-17] MEDS: HEPARIN SODIUM,PORCINE 5,000 UNIT/ML 1 ML VIAL SQ SCH ×2 (08:39→21:23)
--- NOTE | 2019-05-17 11:06 | P.PN ---
Subjective Patient is seen in follow-up for end-stage renal disease. Currently sitting up in chair. Son present at bedside. Off vasopressors. Maintained on midodrine and Florinef. Not feeling too well today. Does admit to dyspnea. Vital signs are stable. General: The patient appeared well nourished and normally developed. HEENT: Head exam is unremarkable. Neck is without jugular venous distension. LUNGS: Breath sounds decreased. HEART: Rate and Rhythm are regular. First and second heart sounds normal. No murmurs, rubs or gallops. ABDOMEN: Abdominal exam reveals normal bowel sounds. Non-tender and non- distended. No evidence of peritonitis. EXTREMITITES: 2+ edema. Objective - Vital Signs Vital signs: Vital Signs Temp 97.5 F L 05/17/19 07:00 Pulse 88 05/17/19 08:33 Resp 16 05/17/19 07:00 BP 66/40 05/17/19 07:00 Pulse Ox 95 05/17/19 07:00 Intake & Output 05/16/19 05/17/19 05/17/19 18:59 06:59 18:59 Intake Total 100 220 Balance 100 220 Intake: Oral 100 220 Other: Voiding Method Urinal # Voids 3 # Bowel Movements 1 - Labs CBC & Chem 7: 05/15/19 05:20 05/15/19 05:20 Labs: Abnormal Lab Results - Last 24 Hours (Table) 05/16/19 05/16/19 05/17/19 Range/Units 11:50 21:05 06:43 POC Glucose (mg/dL) 109 H 154 H 119 H (75-99) mg/dL Assessment and Plan Plan: Assessment: 1. End-stage renal disease maintained on hemodialysis 4 times per week outpatient. 2. Chronic hypotension maintained on midodrine, cortef and Florinef. 3. Anemia of chronic kidney disease. Hemoglobin at goal. 4. Acute on chronic diastolic CHF with mild to moderate mitral and tricuspid regurgitation. 5. Productive cough. He is on IV antibiotics. Sputum culture positive for Klebsiella and Sarah. Plan: Hemodialysis today. Family is considering palliative measures.
--- NOTE | 2019-05-17 12:31 | P.PN ---
Subjective Progress Note Date: 05/17/19 Principal diagnosis: Metabolic encephalopathy, hypertension, fluid overload On 05/11/2019 reason is seen in follow-up in the intensive care unit, he is awake and alert, his mentation has much improved, breathing easier, currently on 4 L of oxygen with pulse ox of 97%, afebrile, he still on small dose of Levophed of 5.2 mics per minute. He had hemodialysis for last 2 days, yesterday he had 3 L of fluid removed, and had 2 L of fluid removed the day before. His labs have been reviewed, showing white blood cell count of 9.0, hemoglobin is 10.9, electrolytes were within normal limits, B1 is 51 creatinine is 4.6. Patient has been afebrile, influenza screen was negative, blood culture has shown no growth at 48 hour jv. Remains on empiric antibiotic coverage in the form of Zosyn. No nausea, vomiting or diarrhea, patient up in the chair, he is using bedside commode, denies any acute distress. Lung sounds are diminished breath sounds at the bases, with scattered rhonchi and crackles. On 05/12/2019 patient is seen in follow-up in the intensive care unit, slightly more sleepy on today's exam, but easily arousable, does not appear to be in any acute distress, currently on 3 L of oxygen pulse ox is 96%, he is afebrile, systolic blood pressure in the 80s and 90s, and diastolic blood pressures in the 50s and 60s. Patient had hemodialysis on the morning of liters of fluid was taken off, this morning he is having on of the hemodialysis treatment with the goal of removing 2 L of fluid. Today's chest x-ray was reviewed with Dr. Horton still showing CHF with interstitial pulmonary edema. In addition patient is bronchospastic and congested on today's exam, he is bringing up large amount of michaud colored thick secretions. He is on empiric antibiotic coverage in the form of Zosyn, sputum and blood cultures have been sent, and are pending at this time. Patient is on small amount of Levophed currently running at 1-2 mics per minute and plan in normal saline at a rate of 20 ML per hour On May patient seen in follow-up on general medical floor. Patient is in the recliner, he has been progressively more weak, still remains congested, but she is able to clear phlegm which remains thick michaud and brown- colored phlegm, he has been afebrile, he has been receiving hemodialysis treatments every other day on Wednesday, nephrology has been following, today he is scheduled for hemodialysis treatment this afternoon, however his blood pressures have been low with the systolic in the 60s and 70s and diastolic in the 40s, patient appears to be more lethargic on today's exam, a low-grade he does wake to verbal and tactile stimulation and answer questions, appears to be very fatigued and worn out, lung sounds reveal diffuse rhonchi, patient is dyspneic at rest although in no acute distress, his been working with physical therapy and he is status quite unsteady and the patient is very weak overall. Continues on Zosyn for Klebsiella oxytoca pneumonia. No new labs today, no new chest x-rays Objective - Vital Signs Vital signs: Vital Signs Temp 97.5 F L 05/17/19 07:00 Pulse 84 05/17/19 11:27 Resp 16 05/17/19 07:00 BP 66/40 05/17/19 07:00 Pulse Ox 95 05/17/19 07:00 Intake & Output 05/16/19 05/17/19 05/17/19 18:59 06:59 18:59 Intake Total 100 220 Balance 100 220 Intake: Oral 100 220 Other: Voiding Method Urinal # Voids 3 # Bowel Movements 1 - Exam GENERAL EXAM: Lethargic, but arousable 83-year-old white male, appears very weak, dyspneic at rest, but no acute distress and 3 L of oxygen with pulse ox of 97% HEAD: Normocephalic/atraumatic. EYES: Normal reaction of pupils, equal size. Conjunctiva pink, sclera white. NOSE: Clear with pink turbinates. THROAT: No erythema or exudates. NECK: No masses, no JVD, no thyroid enlargement, no adenopathy. CHEST: No chest wall deformity. Symmetrical expansion. LUNGS: Equal air entry with diminished breath sounds at the bases, with diffuse rhonchi CVS: Regular rate and rhythm, normal S1 and S2, no gallops, no murmurs, no rubs ABDOMEN: Soft, nontender. No hepatosplenomegaly, normal bowel sounds, no guarding or rigidity. EXTREMITIES: No clubbing, lower extremity edema 1+, no cyanosis, 2+ pulses and upper and lower extremities. Right arm fistula with positive bruit and thrill. MUSCULOSKELETAL: Muscle strength and tone normal. SPINE: No scoliosis or deformity SKIN: No rashes CENTRAL NERVOUS SYSTEM: Alert and oriented -2. No focal deficits, tone is normal in all 4 extremities. PSYCHIATRIC: Alert and oriented -2. Appropriate affect. Intact judgment and insight. - Labs CBC & Chem 7: 05/15/19 05:20 05/15/19 05:20 Labs: Abnormal Lab Results - Last 24 Hours (Table) 05/16/19 05/17/19 Range/Units 21:05 06:43 POC Glucose (mg/dL) 154 H 119 H (75-99) mg/dL Assessment and Plan Plan: Assessment: #1. Acute metabolic encephalopathy, improving #2. Hypotension, possibly related to sepsis or infectious process, and acute CHF systolic dysfunction #3. Rule out pneumonia #4. Fluid overload, acute on chronic exacerbation of congestive heart failure, with systolic dysfunction, with the EF of 45-50% #5. Recent admission for acute multilobar pneumonia secondary to E. coli #6. Acute hypoxic respiratory failure, multifactorial, related to acute CHF exacerbation and possibility of pneumonia is not excluded #7. End-stage renal disease, on hemodialysis #8. Strep underlying COPD #9. Chronic atrial fibrillation #10. Dyslipidemia #11. History of macular degeneration #12. History of glaucoma Plan: Continue same antibiotics, continue nebulized bronchodilators, overall patient's condition seems to be worsening, patient is intermittently hypotensive, he is scheduled to have his hemodialysis today, and depending on his tolerance level in his blood pressure level may not be able to remove very much fluid. Seems to be more lethargic and fatigued, dyspneic at rest, he continues on Zosyn for Klebsiella oxytoca pneumonia, for now she is still able to clear secretions, still has some chest congestion, for now maintaining oxygenation on the same 2-3 L per nasal cannula, severe generalized weakness, patient has been working with physical therapy however his gait and activity tolerance are quiet impaired. The plan is for patient to be discharged to [facility] and rehab eventually with the palliative care consultation and continue on palliative hemodialysis I performed a history & physical examination of the patient and discussed their management with my nurse practitioner, Mariela Irene. I reviewed the nurse practitioner's note and agree with the documented findings and plan of care. Lung sounds are positive for diminished breath sounds with bilateral basilar crackles. The findings and the impression was discussed with the patient. I attest to the documentation by the nurse practitioner. Time with Patient: Less than 30
[2019-05-17] MEDS: FOLIC ACID 1 MG TAB PO SCH (12:37)
[2019-05-17] MEDS: THIAMINE 100 MG TAB PO SCH (12:37)
--- NOTE | 2019-05-17 15:46 | PN ---
PROGRESS NOTE DATE OF SERVICE: 05/17/2019 This 83-year-old gentleman who was admitted with CHF, acute exacerbation, also had persistent hypotension. The patient is also receiving hemodialysis. Most recent chest x-ray was reviewed, which showed minimal interstitial edema. Patient is being closely monitored. Currently the patient is FULL CODE. The family is contemplating NO CODE and palliative care also at this time. ECF rehab is also being planned. No chest pain. No palpitation. PHYSICAL EXAMINATION: Alert and oriented x2. Pulse 84, blood pressure 92/54, respirations 16, temperature 97.6, pulse ox 95% on room air. HEENT: Conjunctivae normal. NECK: No jugular venous distention. CARDIOVASCULAR SYSTEM: S1, S2 muffled. RESPIRATORY SYSTEM: Breath sounds diminished at the bases. A few scattered rhonchi and crackles. ABDOMEN: Soft, non-tender. LEGS: Bilateral leg edema. NERVOUS SYSTEM: No focal deficit. LABS: WBC 9, hemoglobin 11. ASSESSMENT: 1. Congestive heart failure, acute exacerbation, with acute on chronic systolic dysfunction, ejection fraction 40% to 50%, with acute hypoxic hypercarbic respiratory failure, status post BiPAP, present on admission. 2. Klebsiella oxytoca pneumonia and Sarah albicans from the sputum. 3. Hypotension; possibly cardiogenic shock and multifactorial with possible sepsis, present on admission, persistent. 4. Change in mental status with acute metabolic encephalopathy. 5. Bronchopneumonia, possibly Gram-negative. 6. Bilateral atelectasis with possible bronchopneumonia. 7. Hyponatremia. 8. Troponin 0.05, indeterminate, with possible type 2 myocardial infarction with supply/demand mismatch. 9. BNP elevated up to 116,000. 10.Hypoalbuminemia with mild to moderate protein-calorie malnutrition. 11.Anemia, microcytic; anemia of chronic disease. 12.Thrombocytopenia. 13.History of atrial fibrillation, paroxysmal. 14.History of chronic obstructive pulmonary disease. 15.Hyperlipidemia. 16.Hypertension. 17.History of chronic kidney disease, stage IV; hemodialysis Wednesday, Wednesday, Wednesday. 18.History of glaucoma. 19.History of macular degeneration. 20.History of degenerative joint disease. 21.Remote history of nicotine dependence. 22.Gait dysfunction. 23.FULL CODE. RECOMMENDATIONS AND DISCUSSION: I recommend to continue current medications, continue with the monitoring, symptomatic treatment. Otherwise at this time I recommend continuing with the current medications. Empiric steroids. Florinef. The patient is on midodrine as well. We will continue to monitor. Guarded prognosis. Further recommendations to follow. I recommend Edin Sunshine, also. [id number] / IJN: [id number] /
[2019-05-17] MEDS: SODIUM CHLORIDE 0.9% 1,000 ML IV SCH (17:10)
[2019-05-17 20:41] LABS: Glucose,Whole Blood 189 mg/dL (75-99)
[2019-05-17] MEDS: ALPRAZolam 0.25 MG TAB PO SCH (21:23)
[2019-05-17] MEDS: levETIRAcetam 250 MG TAB PO SCH (21:23)
[2019-05-17] MEDS: MELATONIN 3 MG TABLET PO SCH (21:23)
[2019-05-17] MEDS: TORSEMIDE 20 MG TAB PO SCH (21:24)
[2019-05-17] MEDS: PRAVASTATIN SODIUM 20 MG TAB PO SCH (21:24)
[2019-05-18 06:45] LABS: Glucose,Whole Blood 142 mg/dL (75-99)
[2019-05-18] MEDS: PIPERACILLIN-TAZOBACTAM 3.375 GM in SODIUM CHLORIDE 0.9% 100 ML IVPB SCH ×2 (08:52→21:20)
[2019-05-18] MEDS: MAGNESIUM OXIDE 400 MG TAB PO SCH (08:53)
[2019-05-18] MEDS: FLUDROCORTISONE 0.1 MG TAB PO SCH ×2 (08:53→21:20)
[2019-05-18] MEDS: VIT A,C & E-LUTEIN-MINERALS 1 EACH TAB PO SCH (08:53)
[2019-05-18] MEDS: PANTOPRAZOLE 40 MG TABLET PO SCH (08:53)
[2019-05-18] MEDS: GABAPENTIN 100 MG CAP PO SCH ×3 (08:53→21:20)
[2019-05-18] MEDS: predniSONE 10 MG TAB PO SCH (08:53)
[2019-05-18] MEDS: rOPINIRole HCL 4 MG TABLET PO SCH ×3 (08:53→21:21)
[2019-05-18] MEDS: TORSEMIDE 20 MG TAB PO SCH ×2 (08:54→21:21)
[2019-05-18] MEDS: FLUCONAZOLE 100 MG TAB PO SCH (08:54)
[2019-05-18] MEDS: HYDROCORTISONE 20 MG TAB PO SCH ×2 (08:54→21:20)
[2019-05-18] MEDS: MIDODRINE 5 MG TAB PO SCH ×3 (08:54→17:22)
[2019-05-18] MEDS: FOLIC ACID-VIT B COMPLEX-VIT C 1 CAP PO SCH (08:54)
[2019-05-18] MEDS: TIMOLOL 0.5% OPHTH DROPS 5 ML BTL BOTH EYES SCH ×2 (08:55→21:21)
[2019-05-18] MEDS: HEPARIN SODIUM,PORCINE 5,000 UNIT/ML 1 ML VIAL SQ SCH ×2 (08:55→21:21)
[2019-05-18] MEDS: FERROUS SULFATE 325 MG TAB PO SCH (08:55)
[2019-05-18] MEDS: levOCARNitine 330 MG TABLET PO SCH ×3 (09:14→17:22)
--- NOTE | 2019-05-18 09:43 | P.PN ---
Subjective Patient is seen in follow-up for end-stage renal disease. Currently resting in bed. Son and present at bedside. Off vasopressors. Maintained on midodrine and Florinef. Not feeling too well today. Does admit to dyspnea. Vital signs are stable. General: The patient appeared well nourished and normally developed. HEENT: Head exam is unremarkable. Neck is without jugular venous distension. LUNGS: Breath sounds decreased. HEART: Rate and Rhythm are regular. First and second heart sounds normal. No murmurs, rubs or gallops. ABDOMEN: Abdominal exam reveals normal bowel sounds. Non-tender and non- distended. No evidence of peritonitis. EXTREMITITES: 2+ edema. Objective - Vital Signs Vital signs: Vital Signs Temp 97.9 F 05/18/19 07:00 Pulse 80 05/18/19 07:00 Resp 16 05/18/19 07:00 BP 98/55 05/18/19 07:00 Pulse Ox 93 L 05/18/19 07:00 Intake & Output 05/17/19 05/18/19 05/18/19 18:59 06:59 18:59 Intake Total 640 340 Output Total 175 Balance 640 165 Intake: IV 340 Normal Saline 240 Piperacillin-Tazobactam 3 100 .375 gm In Sodium Chloride 0.9% 100 ml @ 25 mls/hr IVPB Q12HR [facility] Rx #:[id number] Oral 640 Output: Urine 175 Other: Voiding Method Urinal Urinal # Voids 3 - Labs CBC & Chem 7: 05/15/19 05:20 05/15/19 05:20 Labs: Abnormal Lab Results - Last 24 Hours (Table) 05/17/19 05/18/19 Range/Units 20:38 06:43 POC Glucose (mg/dL) 189 H 142 H (75-99) mg/dL Assessment and Plan Plan: Assessment: 1. End-stage renal disease maintained on hemodialysis 4 times per week outpatient. 2. Chronic hypotension maintained on midodrine, cortef and Florinef. 3. Anemia of chronic kidney disease. Hemoglobin at goal. 4. Acute on chronic diastolic CHF with mild to moderate mitral and tricuspid regurgitation. 5. Productive cough. He is on IV antibiotics. Sputum culture positive for Klebsiella and Sarah. Plan: Hemodialysis today. Family is considering palliative measures and possibly hospice.
[2019-05-18] MEDS: IPRATROPIUM-ALBUTEROL 3 ML NEB INHALATION SCH ×4 (10:35→20:02)
[2019-05-18] MEDS: BUDESONIDE 1 MG/2 ML NEBU INHALATION SCH ×2 (10:35→20:02)
[2019-05-18] MEDS: FORMOTEROL FUMARATE 20 MCG/2 ML NEBU INHALATION SCH ×2 (10:35→20:02)
[2019-05-18] MEDS: FOLIC ACID 1 MG TAB PO SCH (11:39)
[2019-05-18] MEDS: THIAMINE 100 MG TAB PO SCH (11:39)
--- NOTE | 2019-05-18 14:42 | P.PN ---
Subjective Progress Note Date: 05/18/19 Principal diagnosis: Metabolic encephalopathy, hypertension, fluid overload On 05/11/2019 reason is seen in follow-up in the intensive care unit, he is awake and alert, his mentation has much improved, breathing easier, currently on 4 L of oxygen with pulse ox of 97%, afebrile, he still on small dose of Levophed of 5.2 mics per minute. He had hemodialysis for last 2 days, yesterday he had 3 L of fluid removed, and had 2 L of fluid removed the day before. His labs have been reviewed, showing white blood cell count of 9.0, hemoglobin is 10.9, electrolytes were within normal limits, B1 is 51 creatinine is 4.6. Patient has been afebrile, influenza screen was negative, blood culture has shown no growth at 48 hour jv. Remains on empiric antibiotic coverage in the form of Zosyn. No nausea, vomiting or diarrhea, patient up in the chair, he is using bedside commode, denies any acute distress. Lung sounds are diminished breath sounds at the bases, with scattered rhonchi and crackles. On 05/12/2019 patient is seen in follow-up in the intensive care unit, slightly more sleepy on today's exam, but easily arousable, does not appear to be in any acute distress, currently on 3 L of oxygen pulse ox is 96%, he is afebrile, systolic blood pressure in the 80s and 90s, and diastolic blood pressures in the 50s and 60s. Patient had hemodialysis on the morning of liters of fluid was taken off, this morning he is having on of the hemodialysis treatment with the goal of removing 2 L of fluid. Today's chest x-ray was reviewed with Dr. Horton still showing CHF with interstitial pulmonary edema. In addition patient is bronchospastic and congested on today's exam, he is bringing up large amount of michaud colored thick secretions. He is on empiric antibiotic coverage in the form of Zosyn, sputum and blood cultures have been sent, and are pending at this time. Patient is on small amount of Levophed currently running at 1-2 mics per minute and plan in normal saline at a rate of 20 ML per hour On May patient seen in follow-up on general medical floor. Patient is in the recliner, he has been progressively more weak, still remains congested, but she is able to clear phlegm which remains thick michaud and brown- colored phlegm, he has been afebrile, he has been receiving hemodialysis treatments every other day on Wednesday, nephrology has been following, today he is scheduled for hemodialysis treatment this afternoon, however his blood pressures have been low with the systolic in the 60s and 70s and diastolic in the 40s, patient appears to be more lethargic on today's exam, a low-grade he does wake to verbal and tactile stimulation and answer questions, appears to be very fatigued and worn out, lung sounds reveal diffuse rhonchi, patient is dyspneic at rest although in no acute distress, his been working with physical therapy and he is status quite unsteady and the patient is very weak overall. Continues on Zosyn for Klebsiella oxytoca pneumonia. No new labs today, no new chest x-rays On 05/18/2019 patient seen in follow-up medical surgical floor. He is lethargic on today's exam, but does wake up to verbal stimulation, he is having a hemodialysis treatment today with a goal of removal of 2 L of fluid, yesterday w ith us as nurses were able to remove 1 L of fluid, however in view of hypotension were not able to remove any more. Today his blood pressure is 98/55, patient is afebrile, remains on 3 L of oxygen with a pulse ox of 93%, still bringing up large amount of green colored sputum, remains on Zosyn for K lebsiella oxytoca pneumonia. No new chest x-rays, no new labs. Charge planning is in progress for discharge patient home with palliative care however patient did not want to go to rehab instead he wants to go home and he states he "wants to go home to ". Patient is quite debilitated, increasingly more weak, has not been able to participate with therapy. Discharge planning is following and arrangements are being made for home equipment. Hospice consultation was discussed with patient's , and the family is undecided on hospice involvement at this time however patient has made it clear that he would like for everyone "to let him ". We'll discuss with attending physician and it was agreed with the patient's spouse that hospice may come in and review the family and the patient and offer some information about their services Objective - Vital Signs Vital signs: Vital Signs Temp 97.9 F 05/18/19 07:00 Pulse 80 05/18/19 10:56 Resp 16 05/18/19 07:00 BP 98/55 05/18/19 07:00 Pulse Ox 93 L 05/18/19 07:00 Intake & Output 05/17/19 05/18/19 05/18/19 18:59 06:59 18:59 Intake Total 640 340 425 Output Total 175 Balance 640 165 425 Intake: IV 340 100 Normal Saline 240 Piperacillin-Tazobactam 3 100 100 .375 gm In Sodium Chloride 0.9% 100 ml @ 25 mls/hr IVPB Q12HR [facility] Rx #:[id number] Oral 640 325 Output: Urine 175 Other: Voiding Method Urinal Urinal Urinal # Voids 3 - Exam GENERAL EXAM: Lethargic, but arousable 83-year-old white male, appears very weak, dyspneic at rest, but no acute distress and 3 L of oxygen with pulse ox of 97% HEAD: Normocephalic/atraumatic. EYES: Normal reaction of pupils, equal size. Conjunctiva pink, sclera white. NOSE: Clear with pink turbinates. THROAT: No erythema or exudates. NECK: No masses, no JVD, no thyroid enlargement, no adenopathy. CHEST: No chest wall deformity. Symmetrical expansion. LUNGS: Equal air entry with diminished breath sounds at the bases, with diffuse rhonchi CVS: Regular rate and rhythm, normal S1 and S2, no gallops, no murmurs, no rubs ABDOMEN: Soft, nontender. No hepatosplenomegaly, normal bowel sounds, no guarding or rigidity. EXTREMITIES: No clubbing, lower extremity edema 1+, no cyanosis, 2+ pulses and upper and lower extremities. Right arm fistula with positive bruit and thrill. MUSCULOSKELETAL: Muscle strength and tone normal. SPINE: No scoliosis or deformity SKIN: No rashes CENTRAL NERVOUS SYSTEM: Alert and oriented -2. No focal deficits, tone is normal in all 4 extremities. PSYCHIATRIC: Alert and oriented -2. Appropriate affect. Intact judgment and insight. - Labs CBC & Chem 7: 05/15/19 05:20 05/15/19 05:20 Labs: Abnormal Lab Results - Last 24 Hours (Table) 05/17/19 05/18/19 Range/Units 20:38 06:43 POC Glucose (mg/dL) 189 H 142 H (75-99) mg/dL Assessment and Plan Plan: Assessment: #1. Acute metabolic encephalopathy, improving #2. Hypotension, possibly related to sepsis or infectious process, and acute CHF systolic dysfunction #3. Rule out pneumonia #4. Fluid overload, acute on chronic exacerbation of congestive heart failure, with systolic dysfunction, with the EF of 45-50% #5. Recent admission for acute multilobar pneumonia secondary to E. coli #6. Acute hypoxic respiratory failure, multifactorial, related to acute CHF exacerbation and possibility of pneumonia is not excluded #7. End-stage renal disease, on hemodialysis #8. Strep underlying COPD #9. Chronic atrial fibrillation #10. Dyslipidemia #11. History of macular degeneration #12. History of glaucoma Plan: Continue same antibiotics, continue breathing treatments, maintain aspiration precautions. Patient having another hemodialysis treatment today. He made it quite clear that he wants to go home to . He has been increasingly weaker, and more debilitated. He does not want to go to rehab. Discussed hospice meeting with the family, spouse is agreeable have the hospice outside sales representative come in and offer some information about their services I performed a history & physical examination of the patient and discussed their management with my nurse practitioner, Mariela Irene. I reviewed the nurse practitioner's note and agree with the documented findings and plan of care. Lung sounds are positive for diminished breath sounds with bilateral basilar crackles. The findings and the impression was discussed with the patient. I attest to the documentation by the nurse practitioner. Time with Patient: Less than 30
[2019-05-18] MEDS: SODIUM CHLORIDE 0.9% 1,000 ML IV SCH (15:06)
[2019-05-18] MEDS: MELATONIN 3 MG TABLET PO SCH (21:20)
[2019-05-18] MEDS: ALPRAZolam 0.25 MG TAB PO SCH (21:20)
[2019-05-18] MEDS: levETIRAcetam 250 MG TAB PO SCH (21:20)
[2019-05-18] MEDS: PRAVASTATIN SODIUM 20 MG TAB PO SCH (21:21)
[2019-05-19 01:36] VITALS: TEMP 97.8
--- NOTE | 2019-05-19 06:15 | PN ---
PROGRESS NOTE DATE OF SERVICE: 05/18/2019 This is an 83-year-old gentleman who was admitted with CHF acute exacerbation treatment, the patient started improving. Patient is hypotensive, unable to complete course of hemodialysis. Patient will be closely monitored at this time. The patient and family have expressed wishes of considering hospice at this time. PAST MEDICAL HISTORY: Reviewed. REVIEW OF SYSTEMS: CARDIOVASCULAR SYSTEM: No angina. RESPIRATION: As mentioned earlier. GI: As mentioned earlier. : No dysuria. NERVOUS SYSTEM: No numbness, weakness. CURRENT MEDICATIONS: Current medications are reviewed and include: 1. [place] Elixir. 2. DuoNeb q.i.d. and p.r.n. 3. Xanax 0.25 q.h.s. 4. Pulmicort 1 mg b.i.d. 5. Iron Sulfate. 6. Diflucan. 7. Florinef. 8. Folic acid. 9. Perforomist. 10.Neurontin. 11.Mucinex. 12.Heparin. 13.Cortef. 14.Cephulac. 15.Keppra. 16.Melatonin. 17.ProAmatine. 18.Narcan. 19.Protonix. 20.Pravachol. 21.Requip. 22.Vitamin B1. 23.Timoptic. 24.Demadex. PHYSICAL EXAMINATION: Patient is alert and oriented x2. Pulse 73, blood pressure 89/46, respirations 16, temperature 97.4, pulse ox 93% on 3 L. HEENT: Conjunctivae normal. NECK: No jugular venous distention. CARDIOVASCULAR: S1, S2 muffled. RESPIRATORY: Breath sounds diminished at the bases. A few scattered rhonchi and crackles. ABDOMEN: Soft, nontender. LEGS: Minimal edema. NERVOUS SYSTEM: Diffusely weak. LABS: Accu-Cheks are 189, 142. ASSESSMENT: 1. Congestive heart failure, acute exacerbation, with acute on chronic systolic dysfunction, ejection fraction 40% to 50%, with acute hypoxic hypercarbic respiratory failure, status post BiPAP, present on admission. 2. Klebsiella oxytoca pneumonia and Sarah albicans in the sputum. 3. Persistent hypotension; possibly cardiogenic shock and multifactorial with possible sepsis, present on admission, persistent. 4. Change in mental status with acute metabolic encephalopathy. 5. Bronchopneumonia, possibly gram-negative. 6. Bilateral atelectasis with possible bronchopneumonia. 7. Hyponatremia. 8. Troponin 0.05, indeterminate, with possible type 2 myocardial infarction with supply/demand mismatch. 9. BNP elevated up to 116,000. 10.Hypoalbuminemia with mild to moderate protein-calorie malnutrition. 11.Anemia, macrocytic anemia of chronic disease. 12.Thrombocytopenia. 13.History of atrial fibrillation, paroxysmal. 14.History of chronic obstructive pulmonary disease. 15.Hyperlipidemia. 16.Hypertension. 17.History of chronic kidney disease, stage IV; hemodialysis Wednesday, Wednesday, Wednesday. 18.History of glaucoma. 19.History of macular degeneration. 20.History of degenerative joint disease. 21.Remote history of nicotine dependence. 22.Gait dysfunction. 23.FULL CODE. RECOMMENDATIONS AND DISCUSSION: In this 83-year-old gentleman who presented with multiple complex medical issues, I had a detailed discussion with the patient as well as multiple family members at the bedside, as well as the social media intern and case management. At this time, the patient and family would like to pursue the hospice option. I would recommend hospice consultation and possible discharge within the next 24 hours once everything is set up for the hospice. The prognosis is extremely guarded and the patient is not improving despite intensive treatment and hospice is deemed appropriate in this patient with multiple complex medical issues and comorbidities. See orders for the details. The prognosis remains extremely guarded throughout the hospital stay. [id number] / IJN: [id number] / MTDD
[2019-05-19 06:59] LABS: Glucose,Whole Blood 160 mg/dL (75-99)
[2019-05-19 07:07] VITALS: BP 89/49; RESP 14
[2019-05-19] MEDS: BUDESONIDE 1 MG/2 ML NEBU INHALATION SCH (07:21)
[2019-05-19] MEDS: FORMOTEROL FUMARATE 20 MCG/2 ML NEBU INHALATION SCH (07:21)
[2019-05-19] MEDS: IPRATROPIUM-ALBUTEROL 3 ML NEB INHALATION SCH ×3 (07:21→16:46)
[2019-05-19] MEDS: TORSEMIDE 20 MG TAB PO SCH (08:38)
[2019-05-19] MEDS: FLUCONAZOLE 100 MG TAB PO SCH (08:38)
[2019-05-19] MEDS: PANTOPRAZOLE 40 MG TABLET PO SCH (08:38)
[2019-05-19] MEDS: predniSONE 10 MG TAB PO SCH (08:38)
[2019-05-19] MEDS: MAGNESIUM OXIDE 400 MG TAB PO SCH (08:38)
[2019-05-19] MEDS: FERROUS SULFATE 325 MG TAB PO SCH (08:38)
[2019-05-19] MEDS: FOLIC ACID 1 MG TAB PO SCH (08:38)
[2019-05-19] MEDS: MIDODRINE 5 MG TAB PO SCH ×3 (08:38→15:50)
[2019-05-19] MEDS: GABAPENTIN 100 MG CAP PO SCH ×2 (08:38→15:51)
[2019-05-19] MEDS: THIAMINE 100 MG TAB PO SCH (08:38)
[2019-05-19] MEDS: levOCARNitine 330 MG TABLET PO SCH ×3 (08:40→15:50)
[2019-05-19] MEDS: HYDROCORTISONE 20 MG TAB PO SCH (08:41)
[2019-05-19] MEDS: rOPINIRole HCL 4 MG TABLET PO SCH ×2 (08:41→15:51)
[2019-05-19] MEDS: FLUDROCORTISONE 0.1 MG TAB PO SCH (08:41)
[2019-05-19] MEDS: FOLIC ACID-VIT B COMPLEX-VIT C 1 CAP PO SCH (08:41)
[2019-05-19] MEDS: HEPARIN SODIUM,PORCINE 5,000 UNIT/ML 1 ML VIAL SQ SCH (08:42)
[2019-05-19] MEDS: VIT A,C & E-LUTEIN-MINERALS 1 EACH TAB PO SCH (08:42)
[2019-05-19] MEDS: PIPERACILLIN-TAZOBACTAM 3.375 GM in SODIUM CHLORIDE 0.9% 100 ML IVPB SCH (08:45)
[2019-05-19] MEDS: TIMOLOL 0.5% OPHTH DROPS 5 ML BTL BOTH EYES SCH (09:33)
--- NOTE | 2019-05-19 10:57 | P.PN ---
Subjective Patient is seen in follow-up for end-stage renal disease. Currently resting in bed. Sons present at bedside. Off vasopressors. Maintained on midodrine and Florinef. Quite lethargic. Family has decided to proceed with hospice. Vital signs are stable. General: The patient appeared well nourished and normally developed. HEENT: Head exam is unremarkable. Neck is without jugular venous distension. LUNGS: Breath sounds decreased. HEART: Rate and Rhythm are regular. First and second heart sounds normal. No murmurs, rubs or gallops. ABDOMEN: Abdominal exam reveals normal bowel sounds. Non-tender and non- distended. No evidence of peritonitis. EXTREMITITES: 2+ edema. Objective - Vital Signs Vital signs: Vital Signs Temp 97.8 F 05/19/19 06:35 Pulse 80 05/19/19 07:41 Resp 14 05/19/19 06:35 BP 89/49 05/19/19 06:35 Pulse Ox 97 05/19/19 06:35 Intake & Output 05/18/19 05/19/19 05/19/19 18:59 06:59 18:59 Intake Total 925 220 200 Output Total 2500 Balance -1575 220 200 Intake: IV 100 Piperacillin-Tazobactam 3 100 .375 gm In Sodium Chloride 0.9% 100 ml @ 25 mls/hr IVPB Q12HR [facility] Rx #:[id number] Intake, IV Titration 220 Amount Piperacillin-Tazobactam 3 100 .375 gm In Sodium Chloride 0.9% 100 ml @ 25 mls/hr IVPB Q12HR [facility] Rx #:[id number] Sodium Chloride 0.9% 1, 120 000 ml @ 20 mls/hr IV . Q24H [facility] Rx#:[id number] Oral 325 200 Hemodialysis 500 Output: Hemodialysis 2500 Other: Voiding Method Urinal Urinal Urinal - Labs CBC & Chem 7: 05/15/19 05:20 05/15/19 05:20 Labs: Abnormal Lab Results - Last 24 Hours (Table) 05/19/19 Range/Units 06:57 POC Glucose (mg/dL) 160 H (75-99) mg/dL Assessment and Plan Plan: Assessment: 1. End-stage renal disease maintained on hemodialysis 4 times per week outpatient. 2. Chronic hypotension maintained on midodrine, cortef and Florinef. 3. Anemia of chronic kidney disease. Hemoglobin at goal. 4. Acute on chronic diastolic CHF with mild to moderate mitral and tricuspid regurgitation. 5. Productive cough. He is on IV antibiotics. Sputum culture positive for Klebsiella and Sarah. Plan: Patient will be going home with hospice today. No further hemodialysis.
[2019-05-19 11:09] VITALS: PULSE 74
[2019-05-19] MEDS: SODIUM CHLORIDE 0.9% 1,000 ML IV SCH (15:05)
--- NOTE | 2019-05-19 18:00 | P.DS ---
Providers Date of admission: 05/08/19 15:02 Expected date of discharge: 05/19/19 Attending physician: Aura More Consults: 05/08/19 13:36 Consult Physician Urgent Consulting Provider: Eduardo Horton Consult Reason/Comments: critical care Do you want consulting provider notified?: Already Contacted Consult Physician Urgent Consulting Provider: Jakub Thompson Consult Reason/Comments: Renal failure Do you want consulting provider notified?: Yes 05/08/19 15:02 Consult Physician Urgent Consulting Provider: Max Riley Consult Reason/Comments: Pulmonary edema Do you want consulting provider notified?: Yes Primary care physician: [facility] Course: 05/11/2019 reason is seen in follow-up in the intensive care unit, he is awake and alert, his mentation has much improved, breathing easier, currently on 4 L of oxygen with pulse ox of 97%, afebrile, he still on small dose of Levophed of 5.2 mics per minute. He had hemodialysis for last 2 days, yesterday he had 3 L of fluid removed, and had 2 L of fluid removed the day before. His labs have been reviewed, showing white blood cell count of 9.0, hemoglobin is 10.9, electrolytes were within normal limits, B1 is 51 creatinine is 4.6. Patient has been afebrile, influenza screen was negative, blood culture has shown no growth at 48 hour jv. Remains on empiric antibiotic coverage in the form of Zosyn. No nausea, vomiting or diarrhea, patient up in the chair, he is using bedside commode, denies any acute distress. Lung sounds are diminished breath sounds at the bases, with scattered rhonchi and crackles. On 05/12/2019 patient is seen in follow-up in the intensive care unit, slightly more sleepy on today's exam, but easily arousable, does not appear to be in any acute distress, currently on 3 L of oxygen pulse ox is 96%, he is afebrile, systolic blood pressure in the 80s and 90s, and diastolic blood pressures in the 50s and 60s. Patient had hemodialysis on the morning of liters of fluid was taken off, this morning he is having on of the hemodialysis treatment with the goal of removing 2 L of fluid. Today's chest x-ray was reviewed with Dr. Horton still showing CHF with interstitial pulmonary edema. In addition patient is bronchospastic and congested on today's exam, he is bringing up large amount of michaud colored thick secretions. He is on empiric antibiotic coverage in the form of Zosyn, sputum and blood cultures have been sent, and are pending at this time. Patient is on small amount of Levophed currently running at 1-2 mics per minute and plan in normal saline at a rate of 20 ML per hour On May patient seen in follow-up on general medical floor. Patient is in the recliner, he has been progressively more weak, still remains congested, but she is able to clear phlegm which remains thick michaud and brown- colored phlegm, he has been afebrile, he has been receiving hemodialysis treatments every other day on Wednesday, nephrology has been following, today he is scheduled for hemodialysis treatment this afternoon, however his blood pressures have been low with the systolic in the 60s and 70s and diastolic in the 40s, patient appears to be more lethargic on today's exam, a low-grade he does wake to verbal and tactile stimulation and answer questions, appears to be very fatigued and worn out, lung sounds reveal diffuse rhonchi, patient is dyspneic at rest although in no acute distress, his been working with physical therapy and he is status quite unsteady and the patient is very weak overall. Continues on Zosyn for Klebsiella oxytoca pneumonia. No new labs today, no new chest x-rays On 05/18/2019 patient seen in follow-up medical surgical floor. He is lethargic on today's exam, but does wake up to verbal stimulation, he is having a hemodialysis treatment today with a goal of removal of 2 L of fluid, yesterday with us as nurses were able to remove 1 L of fluid, however in view of hypotension were not able to remove any more. Today his blood pressure is 98/55, patient is afebrile, remains on 3 L of oxygen with a pulse ox of 93%, still bringing up large amount of green colored sputum, remains on Zosyn for Klebsiella oxytoca pneumonia. No new chest x-rays, no new labs. Charge planning is in progress for discharge patient home with palliative care however patient did not want to go to rehab instead he wants to go home and he states he "wants to go home to ". Patient is quite debilitated, increasingly more weak, has not been able to participate with therapy. Discharge planning is following and arrangements are being made for home equipment. Hospice consultation was discussed with patient's , and the family is undecided on hospice involvement at this time however patient has made it clear that he would like for everyone "to let him ". We'll discuss with attending physician and it was agreed with the patient's spouse that hospice may come in and review the family and the patient and offer some information about their services patient is dc'ed home with Hospice Patient Condition at Discharge: Critical Plan - Discharge Summary Discharge Rx Participant: No New Discharge Prescriptions: Continue rOPINIRole HCL [Requip] 4 mg PO TID Prorenal + D 1 tab PO DAILY levOCARNitine [Levocarnitine] 330 mg PO TID-W/MEALS Tamsulosin HCl [Flomax] 0.4 mg PO BID #60 cap Gabapentin [Neurontin] 100 mg PO TID #9 cap Pravastatin Sodium [Pravachol] 20 mg PO HS #30 tab Midodrine [ProAmatine] 10 mg PO AC-TID #180 tab Carbidopa-Levodopa 25-100 mg [Sinemet 25-100 mg] 1 tab PO BID #60 tab Budesonide-Formot 160-4.5 Mcg [Symbicort 160-4.5 Mcg Inhaler] 2 puff INHALATION RT-BID #1 inh Timolol 0.5% Ophth Soln [Timoptic 0.5% Ophth Soln] 1 drop BOTH EYES DAILY #1 bottle Allopurinol [Zyloprim] 100 mg PO HS #30 tab Iron-27mg 27 mg PO DAILY levETIRAcetam [Keppra] 250 mg PO HS Magnesium Oxide [Reed] 500 mg PO DAILY Vit A/Vit C/Vit E/Zinc/Copper [ICAPS SOFTGEL] 1 cap PO DAILY Docusate [Colace] 100 mg PO DAILY Ipratropium-Albuterol Nebulize [Duoneb 0.5 mg-3 mg/3 ml Soln] 3 ml INHALATION RT-QID Fludrocortisone [Florinef] 0.2 mg PO BID 30 Days #60 tab Folic Acid 1 mg PO DAILY@1200 30 Days #30 tab Thiamine [Vitamin B-1] 100 mg PO DAILY@1200 30 Days #30 tab Hydrocortisone [Cortef] 20 mg PO BID 30 Days #60 tab guaiFENesin [Mucinex] 600 mg PO Q12HR PRN PRN Reason: Cough Furosemide [Lasix] 240 mg PO DAILY Brimonidine Tartrate [Alphagan P 0.1% Ophth Soln] 1 drop BOTH EYES Q8H Multivitamins, Thera [Multivitamin (formulary)] 1 tab PO DAILY@1200 Discharge Medication List rOPINIRole HCL [Requip] 4 mg PO TID 12/27/17 [History] Prorenal + D 1 tab PO DAILY 01/24/19 [History] levOCARNitine [Levocarnitine] 330 mg PO TID-W/MEALS 01/24/19 [History] Allopurinol [Zyloprim] 100 mg PO HS #30 tab 03/02/19 [Rx] Budesonide-Formot 160-4.5 Mcg [Symbicort 160-4.5 Mcg Inhaler] 2 puff INHALATION RT-BID #1 inh 03/02/19 [Rx] Carbidopa-Levodopa 25-100 mg [Sinemet 25-100 mg] 1 tab PO BID #60 tab 03/02/19 [Rx] Gabapentin [Neurontin] 100 mg PO TID #9 cap 03/02/19 [Rx] Midodrine [ProAmatine] 10 mg PO AC-TID #180 tab 03/02/19 [Rx] Pravastatin Sodium [Pravachol] 20 mg PO HS #30 tab 03/02/19 [Rx] Tamsulosin HCl [Flomax] 0.4 mg PO BID #60 cap 03/02/19 [Rx] Timolol 0.5% Ophth Soln [Timoptic 0.5% Ophth Soln] 1 drop BOTH EYES DAILY #1 bottle 03/02/19 [Rx] Docusate [Colace] 100 mg PO DAILY 04/02/19 [History] Ipratropium-Albuterol Nebulize [Duoneb 0.5 mg-3 mg/3 ml Soln] 3 ml INHALATION RT-QID 04/02/19 [History] Iron-27mg 27 mg PO DAILY 04/02/19 [History] Magnesium Oxide [Reed] 500 mg PO DAILY 04/02/19 [History] Vit A/Vit C/Vit E/Zinc/Copper [ICAPS SOFTGEL] 1 cap PO DAILY 04/02/19 [History] levETIRAcetam [Keppra] 250 mg PO HS 04/02/19 [History] Fludrocortisone [Florinef] 0.2 mg PO BID 30 Days #60 tab 04/14/19 [Rx] Folic Acid 1 mg PO DAILY@1200 30 Days #30 tab 04/14/19 [Rx] Hydrocortisone [Cortef] 20 mg PO BID 30 Days #60 tab 04/14/19 [Rx] Thiamine [Vitamin B-1] 100 mg PO DAILY@1200 30 Days #30 tab 04/14/19 [Rx] Brimonidine Tartrate [Alphagan P 0.1% Ophth Soln] 1 drop BOTH EYES Q8H 05/08/19 [History] Furosemide [Lasix] 240 mg PO DAILY 05/08/19 [History] Multivitamins, Thera [Multivitamin (formulary)] 1 tab PO DAILY@1200 05/08/19 [History] guaiFENesin [Mucinex] 600 mg PO Q12HR PRN 05/08/19 [History] Follow up Appointment(s)/Referral(s): Vaibhav Ortiz MD [Primary Care Provider] - 1-2 days [facility], [NON-STAFF] - Discharge Disposition: HOME WITH HOSPICE
--- NOTE | 2019-05-25 07:43 | CDI ---
Documentation Clarification Form Date: 05/23/2019 06:37:00 AM From: Iwona Reynolds Phone: If you have a question about this query, please contact [employer] Paint Sprayer Sandblaster at [phone] between 8am and 5pm. Admit Date: 05/08/2019 03:02:00 PM Patient Name: Andrew Harper Visit Number: [id number] Discharge Date: 05/19/2019 04:30:00 PM ATTENTION: The Clinical Documentation Specialists (CDI) and [facility] Coding Staff appreciate your assistance in clarifying documentation. Please respond to the clarification below the line at the bottom and electronically sign. The CDI & [facility] Coding staff will review the response and follow-up if needed. Please note: Queries are made part of the Legal Health Record. If you have any questions, please contact the author of this message via ITS. Dr. Aura More Conflicting documentation has been found in the medical record: H and P and PN document Ac/Chr systolic CHF. Nephrology documents Ac/Chr Diastolic CHF. Please clarify if patient had diastolic CHF or systolic CHF or both. History/Risk Factors: Patient with sepsis and gram negative pneumonia, ESRD, PCM Treatment: BIPAP I's and O's Patient on home Lasix, Hemodialysis In your opinion, what is the most clinically appropriate diagnosis for this patient? Acute and chronic diastolic CHF Acute and chronic systolic CHF Acute and chronic diastolic and systolic CHF Other explanation of clinical findings Unable to determine (no explanation for clinical findings) acute and chronic systolic CHF MTDD
--- NOTE | 2019-05-26 11:10 | CDI ---
Documentation Clarification Form Date: 05/23/2019 06:37:00 AM From: Iwona Reynolds Phone: If you have a question about this query, please contact [employer]etry[employer] Boiling Tub Operator at [phone] between 8am and 5pm. Admit Date: 05/08/2019 03:02:00 PM Patient Name: Andrew Harper Visit Number: [id number] Discharge Date: 05/19/2019 04:30:00 PM ATTENTION: The Clinical Documentation Specialists (CDI) and [facility] Coding Staff appreciate your assistance in clarifying documentation. Please respond to the clarification below the line at the bottom and electronically sign. The CDI & [facility] Coding staff will review the response and follow-up if needed. Please note: Queries are made part of the Legal Health Record. If you have any questions, please contact the author of this message via ITS. Dr. Aura More Conflicting documentation has been found in the medical record: H and P and PN document Ac/Chr systolic CHF. Nephrology documents Ac/Chr Diastolic CHF. Please clarify if patient had diastolic CHF or systolic CHF or both. History/Risk Factors: Patient with sepsis and gram negative pneumonia, ESRD, PCM Treatment: BIPAP I's and O's Patient on home Lasix, Hemodialysis In your opinion, what is the most clinically appropriate diagnosis for this patient? Acute and chronic diastolic CHF Acute and chronic systolic CHF Acute and chronic diastolic and systolic CHF Other explanation of clinical findings Unable to determine (no explanation for clinical findings) Acute and chronic systolic CHF MTDD
== END 2019-05-19 16:30 | disposition hospice, home (50) | DRG 871 ==
LOC: EC 12:09 → 2SICU 15:02 → 4SSUR 05-15 22:23
PROVIDERS: ADMIT Hospitalist; ATTEND Hospitalist
PROC: 5A09357 Assistance with Respiratory Ventilation, Less than 24 Consecutive Hours, Continuous Positive Airway Pressure (ICD-10-PCS; principal; 2019-05-08)
PROC: 02HV33Z Insertion of Infusion Device into Superior Vena Cava, Percutaneous Approach (ICD-10-PCS; 2019-05-08)
PROC: 5A1D70Z Performance of Urinary Filtration, Intermittent, Less than 6 Hours Per Day (ICD-10-PCS; 2019-05-10)
DX: A41.59 Other Gram-negative sepsis (principal); J15.6 Pneumonia due to other Gram-negative bacteria; G93.41 Metabolic encephalopathy; J96.02 Acute respiratory failure with hypercapnia; J96.01 Acute respiratory failure with hypoxia; B37.1 Pulmonary candidiasis; R57.0 Cardiogenic shock; N18.6 End stage renal disease; I21.A1 Myocardial infarction type 2; I50.23 Acute on chronic systolic (congestive) heart failure; E44.0 Moderate protein-calorie malnutrition; E87.1 Hypo-osmolality and hyponatremia; I13.2 Hypertensive heart and chronic kidney disease with heart failure and with stage 5 chronic kidney disease, or end stage renal disease; I42.9 Cardiomyopathy, unspecified; I48.19 Other persistent atrial fibrillation; J44.0 Chronic obstructive pulmonary disease with (acute) lower respiratory infection; J98.11 Atelectasis; R65.20 Severe sepsis without septic shock; Z87.891 Personal history of nicotine dependence; D50.9 Iron deficiency anemia, unspecified; D53.9 Nutritional anemia, unspecified; D63.1 Anemia in chronic kidney disease; D69.6 Thrombocytopenia, unspecified; E78.5 Hyperlipidemia, unspecified; H35.30 Unspecified macular degeneration; H40.9 Unspecified glaucoma; I08.1 Rheumatic disorders of both mitral and tricuspid valves; I95.3 Hypotension of hemodialysis; Z51.5 Encounter for palliative care; Z66 Do not resuscitate; Z79.51 Long term (current) use of inhaled steroids; Z79.899 Other long term (current) drug therapy; Z82.49 Family history of ischemic heart disease and other diseases of the circulatory system; Z82.5 Family history of asthma and other chronic lower respiratory diseases; Z99.2 Dependence on renal dialysis; Z80.9 Family history of malignant neoplasm, unspecified; R26.9 Unspecified abnormalities of gait and mobility; Z68.30 Body mass index [BMI] 30.0-30.9, adult
CPT/HCPCS: 36415; 36556; 71045; 80048; 80053; 82533; 82550; 83605; 83735; 83880; 84100; 84443; 84484; 85025; 85610; 85730; 86706; 87040; 87070; 87077; 87186; 87205; 87340; 87502; 90935; 93005; 94640; 94660; 94667; 94760; 96365; 96366; 96374; 99291